=== PATIENT | male | born 1955 | race Caucasian/White ===

== ENCOUNTER 2016-07-08 02:29 | Inpatient (IN) | payer MEDICAID, MEDICARE ==
[~2016-07-08] VITALS: Ht 175.3 cm; Wt 107.4 kg
[~2016-07-08 02:29] MED LIST: BENZ100C5 PO; BUME1TA PO; CALC1CAP31 PO; CARV12.5 PO; FISH1000 PO; INSUH10VL SC; INSULANT SC; ISOS30TA4 PO; METO5TA PO; PANT40TA2 PO; SPIR25TA2 PO; TORS20TA2 PO; VITA50003 PO
[2016-07-08] MEDS ORDERED: TORS20TA2 PO ×2 (02:47)
[2016-07-08] MEDS ORDERED: metOLazone 5 MG TAB PO ONE (03:00)
[2016-07-08] MEDS ORDERED: BUMETANIDE 1 MG/4 ML INJ (S0171) IV ONE (03:00)
[2016-07-08] MEDS ORDERED: INSULANT SC (03:09)
[2016-07-08] MEDS ORDERED: CALC1CAP31 PO (03:11)
[2016-07-08 03:12] LABS: BASO # 0.1 K/mm3 (0.0-0.2); BASO % 1.3 % (0.0-1.0); EOS # 0.2 K/mm3 (0.0-0.50); EOS % 3.4 % (0.0-3.0); LARGE UNSTAINED CELL # 0.1 K/mm3 (0.0-0.4); LARGE UNSTAINED CELL % 2.1 % (0.0-4.0); LYMPH # 1.5 K/mm3 (1.5-4.5); LYMPH % 21.5 % (24.0-44.0); MEAN CORPUSCULAR HEMOGLOBIN 27.9 pg (27.0-33.0); MEAN CORPUSCULAR HGB CONC 32.2 g/dl (32.0-36.5); MEAN CORPUSCULAR VOLUME 86.4 fl (80.0-96.0); MONO # 0.7 K/mm3 (0.0-0.8); MONO % 9.7 % (0.0-5.0); NEUTROPHILS # 4.2 K/mm3 (1.8-7.7); NEUTROPHILS % 61.9 % (36.0-66.0); PLATELET COUNT, AUTOMATED 183 k/mm3 (150-450); RED CELL DISTRIBUTION WIDTH 16.9 % (11.5-14.5); WHITE BLOOD COUNT 6.8 K/mm3 (4.0-10.0)
[2016-07-08 03:18] LABS: INR 1.25
[2016-07-08 03:30] LABS: ALBUMIN 3.1 GM/DL (3.2-5.2); ALBUMIN/GLOBULIN RATIO 0.86 (1.00-1.93); CALCIUM LEVEL 8.1 MG/DL (8.8-10.2); CREATININE FOR GFR 5.25 MG/DL (0.70-1.30); GLOMERULAR FILTRATION RATE 11.9 (>49); PHOSPHORUS LEVEL 4.5 MG/DL (2.5-4.9); POTASSIUM SERUM 4.2 MEQ/L (3.5-5.1); TOTAL PROTEIN 6.7 GM/DL (6.4-8.2)
[2016-07-08 03:35] LABS: ERYTHROCYTE SEDIMENTATION RATE 39 mm/hr (0-20)
--- NOTE | 2016-07-08 03:40 | REPUSA ---
CLINICAL HISTORY: Edema. COMMENTS: Real time sonography with duplex doppler of the extremities bilaterally was performed with attention to the major deep venous structures. Evaluation reveals the common femoral, superficial femoral and popliteal veins bilaterally to be comp letely compressible without intraluminal thrombus. There is normal spontaneous phasic flow and augmen tation in all deep veins. The greater saphenous/common femoral vein junctions are patent bilaterally. IMPRESSION: No evidence of DVT in the lower extremities bilaterally. Thank you for your kind referral of this patient.
[2016-07-08] MEDS ORDERED: BENZONATATE 100 MG CAP PO ONE (03:45)
[2016-07-08 04:30] VITALS: BP 149/91
[2016-07-08] MEDS ORDERED: GLUCAGON FOR INJ 1 MG VIAL (J1610) SC PRN (04:45)
[2016-07-08] MEDS ORDERED: DEXTROSE 50% 50 ML SYRINGE IV PRN (04:45)
[2016-07-08] MEDS ORDERED: GLUCOSE 4 GM CHEW TABLET PO PRN (04:45)
[2016-07-08 05:00] VITALS: BP 142/84
--- NOTE | 2016-07-08 05:15 | HPEPDOC ---
General Date of Admission July 08, 2016 at 03:08 Attending Physician: JADEN BLOUNT MD Chief Complaint The patient is a 60-year-old male admitted with a reason for visit of Chf Exacerbation. Source: Patient, RN notes reviewed, Old records Associated Symptoms: Cough, Shortness of breath, Weakness, Dizziness History of Present Illness Mr. Weber a 60-year-old male who presents to [facility]'s emergency Department from [facility] with lightheadedness, dizziness , and difficulty breathing. Past medical history significant for hypertension, diabetes mellitus, gastroesophageal reflux disease, congestive heart failure, CAD status post CABG , chronic kidney disease stage IV, history of brain aneurysm, and secondary hyperparathyroidism. Patient states that his difficulty breathing started last evening when he was sitting at home. Was attempting to get out of a chair and was too weak to do so. When he eventually got out of the chair and ambulated to the restroom he decided to call the ambulance to be taken to the hospital. Patient states that he is short of breath all the time and it is his shortness of breath that prevents him from accomplishing activities. Patient recalls having an echocardiogram at some point, but is not sure when that was. Patient reports a nonproductive cough for the last week. Admits to blurry vision, runny nose, swelling in his bilateral lower extremities, chest heaviness, orthopnea, numbness and tingling in bilateral feet, polydipsia, and diarrhea. Besides positive review of systems as stated above all other review of systems are negative. Hospitalist service was consulted and patient was admitted for further medical management. Home Medications Scheduled Calcitriol (Calcitriol) 0.25 Mcg Cap, 0.25 MCG PO DAILY, (Reported) Carvedilol (Carvedilol) 12.5 Mg Tab, 12.5 MG PO BID, (Reported) Ergocalciferol (Vitamin D) 50,000 Unit Cap, 50,000 UNIT PO 1XWK, (Reported) THURSDAYS Fish Oil (Fish Oil) 1,000 Mg Cap, 1,000 MG PO BID, (Reported) Insulin Aspart (Novolog) 100 U/Ml Inj, 1 DOSE SC AC, (Reported) PER SLIDING SCALE Insulin Glargine (Lantus) 1 Units/0.01 Ml Susp, 40 UNITS SC BID, (Reported) Pantoprazole Sodium (Pantoprazole Sodium) 40 Mg Tab, 40 MG PO DAILY, (Reported) Spironolactone (Spironolactone) 25 Mg Tab, 25 MG PO DAILY, (Reported) Torsemide (Torsemide) 20 Mg Tab, 60 MG PO BID, (Reported) Scheduled PRN Benzonatate (Benzonatate) 100 Mg Cap, 100 MG PO TID PRN for COUGH, (Reported) Allergies Coded Allergies: Eggs or Egg-derived Products (Unverified Adverse Reaction, Intermediate, DIARRHEA, UPSET STOMACH, 12/02/15) Past Medical History Medical History 1. Hypertension 2. Diabetes mellitus 3. Gastroesophageal reflux disease 4. Congestive heart failure 5. Chronic kidney disease stage IV 6. History of brain aneurysm 7. Secondary hyperparathyroidism 8. CAD status post CABG Surgical History 1. Coronary artery bypass graft 2. AICD 3. Brain aneurysm surgery 4. 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 Denies alcohol, although admitted to previously drinking "a lot" Denies tobacco abuse Denies illicit drug abuse Denies exposure risk to asbestos, talc powder, or coal dust Review of Symptoms Constitutional: Reports: Weakness, Denies: Chills, Fever, Night Sweats Eyes: Denies: Vision change ENT: Reports: Sinus Congestion (runny nose), Denies: Head Aches, Post Nasal Drip, Sore Throat, Epistaxis Skin: Denies: Rash, Lesions, Bruising, Dry Pulmonary: Reports: Dyspnea, Cough (nonproductive), Denies: Pleuritic Chest Pain Cardiovascular: Reports: Chest Pain (chest heaviness), Orthopnea, Edema ( bilateral lower extremities), Lt Headedness, Denies: Palpitations, Paroxysmal Noc. Dyspnea Gastrointestinal: Reports: Diarrhea (occasional), Denies: Nausea, Vomiting, Abdominal Pain, Constipation, Melena, Hematochezia Genitourinary: Denies: Dysuria, Frequency, Incontinence, Hematuria, Retention Hematologic: Denies: Bruising, Enlarged Lymph Nodes Endocrine: Reports: Polydipsia Neurological: Reports: Weakness, Numbness (bilateral feet) Physical Examination General Exam: Positive: Alert, No Acute Distress Eye Exam: Positive: PERRLA, Conjunctiva & lids normal, EOMI, Negative: Sclera icteric, Ptosis ENT Exam: Positive: Atraumatic, Mucous membr. moist/pink, Pharynx Normal, Tongue Midline, Nares Patent, Negative: Pharyngeal Edema Neck Exam: Positive: Supple, Negative: JVD, thyromegaly, Lymphadenopathy Chest Exam: Positive: Clear to auscultation, Normal air movement Heart Exam: Positive: Rate Normal, Regular Rhythm, Normal S1, Normal S2, Negative: Gallops, Murmurs, Rubs Telemetry: Positive: AV Block Abdomen Exam: Positive: Normal bowel sounds, Soft, Negative: Tenderness, Hepatospenomegaly, Mass, Hernia Extremity Exam: Positive: Edema (bilateral lower extremities, 3+ pitting edema up to the level of the knee), Normal pulses, Negative: Clubbing, Cyanosis, Tenderness Skin Exam: Positive: Nl turgor and temperature, Negative: Rash, Lesion Neuro Exam: Positive: Normal Speech, Strength at 5/5 X4 ext, Cranial Nerves 3- 12 NL Other physical findings Bilateral lower extremity duplex ultrasound IMPRESSION: No evidence of DVT in the lower extremities bilaterally. Vital Signs Vital Signs Date Time Temp Pulse Resp B/P (MAP) Pulse Ox O2 Delivery O2 Flow Rate FiO2 07/08/16 03:58 96.6 07/08/16 02:42 90 18 94 Room Air Height (in): 69 Weight (kg): 106.59 BMI (kg): 34.7 Laboratory Data Labs 24H Laboratory Tests 2 07/08/16 02:59: White Blood Count 6.8, Red Blood Count 4.47, Hemoglobin 12.4L, Hematocrit 38.6L , Mean Corpuscular Volume 86.4, Mean Corpuscular Hemoglobin 27.9, Mean Corpuscular Hemoglobin Concent 32.2, Red Cell Distribution Width 16.9H, Platelet Count 183, Neutrophils (%) (Auto) 61.9, Lymphocytes (%) (Auto) 21.5L, Monocytes (%) (Auto) 9.7H, Eosinophils (%) (Auto) 3.4H, Basophils (%) (Auto) 1.3H, Neutrophils # (Auto) 4.2, Lymphocytes # (Auto) 1.5, Monocytes # (Auto) 0.7 , Eosinophils # (Auto) 0.2, Basophils # (Auto) 0.1, Large Unclassified Cells % 2.1, Large Unclassified Cells # 0.1, Erythrocyte Sedimentation Rate 39H, Prothrombin Time 15.8H, Prothromb Time International Ratio 1.25, Anion Gap 10, Glomerular Filtration Rate 11.9L, Blood Urea Nitrogen 75H, Creatinine 5.25H, Sodium Level 134L, Potassium Level 4.2, Chloride Level 101, Carbon Dioxide Level 23, Calcium Level 8.1L, Phosphorus Level 4.5, Aspartate Amino Transf (AST/ SGOT) 15, Alanine Aminotransferase (ALT/SGPT) 19, Total Creatine Kinase 108, Alkaline Phosphatase 136H, Total Bilirubin 1.0, Triglycerides Level 189H, LDL Cholesterol 61.2, Total Protein 6.7, Albumin 3.1L, Magnesium Level 2.0, Creatine Kinase MB 4.5H, Creatine Kinase MB Relative Index 4.16H, Troponin I 0.08, C-Reactive Protein, Quantitative 1.81H, B-Type Natriuretic Peptide 3240H, Albumin/Globulin Ratio 0.86L, Total Cholesterol 126, Non-HDL Cholesterol (LDL + VLDL) 99, Total HDL Cholesterol 27L, Cholesterol/HDL Ratio 4.666, Thyroid Stimulating Hormone (TSH) 2.260 CBC/BMP Laboratory Tests 07/08/16 02:59 Red Blood Count 4.47, Mean Corpuscular Volume 86.4, Mean Corpuscular Hemoglobin 27.9, Mean Corpuscular Hemoglobin Concent 32.2, Red Cell Distribution Width 16.9 H, Neutrophils (%) (Auto) 61.9, Lymphocytes (%) (Auto) 21.5 L, Monocytes (% ) (Auto) 9.7 H, Eosinophils (%) (Auto) 3.4 H, Basophils (%) (Auto) 1.3 H, Neutrophils # (Auto) 4.2, Lymphocytes # (Auto) 1.5, Monocytes # (Auto) 0.7, Eosinophils # (Auto) 0.2, Basophils # (Auto) 0.1, Calcium Level 8.1 L, Phosphorus Level 4.5, Aspartate Amino Transf (AST/SGOT) 15, Alanine Aminotransferase (ALT/SGPT) 19, Total Creatine Kinase 108, Alkaline Phosphatase 136 H, Total Bilirubin 1.0, Triglycerides Level 189 H, LDL Cholesterol 61.2, Total Protein 6.7, Albumin 3.1 L Assessment/Plan Mr. Weber is a 60-year-old male with a past medical history significant for hypertension, diabetes mellitus, gastroesophageal reflux disease , congestive heart failure, coronary artery disease status post coronary artery bypass graft, chronic kidney disease stage IV, history of brain aneurysm, and secondary hyperparathyroidism who presents with difficulty breathing, lightheadedness, and dizziness and found to have an exacerbation of congestive heart failure. Plan / VTE VTE Prophylaxis Ordered?: Yes (TEDs and sequentials) Plan Plan Congestive heart failure exacerbation Bilateral lower extremity duplex ultrasound was negative. Chest x-ray at outside facility shows worsening pulmonary vascular congestion. BNP at outlying facility was 4005. BNP at our facility was 3240. Obtain CRP. Obtain echocardiogram. Received dose of Bumex in the emergency department. Patient to go for dialysis in the a.m. Fluid restriction of 1500 mL. Hold beta blockers at this time. Physical therapy consultation. Chronic kidney disease stage IV Consulted nephrology. Patient to go for dialysis in the a.m.. Obtaining phosphorus level. Continue patient on calcitriol. Chest pain Obtaining cardiac markers and EKG. Hypertension Hold nephrotoxic agents at this time. Monitor vital signs. Nitrates and hydralazine for blood pressure control. Diabetes mellitus Levemir 80 units twice a day, sliding scale insulin, and hypoglycemic protocol. Fingerstick glucoses before meals and at bedtime. Consistent carbohydrate diet. Coronary artery disease status post CABG Continue with aspirin and atorvastatin. 10 year ASCVD risk 27.4%. Secondary parahypothyroidism Prior hospitalization in 2016 make mention of secondary parahypothyroidism. Obtaining PTH and vitamin D level. Disposition Admit: Intensive care unit Anticipated hospitalization: 2 nights Attending: Dr. Schmitz Consultation: Nephrology Diet: Continue Current (consistent carbohydrate) Activity: Encourage Ambulation Therapy: PT Pt and Family Services: Home Care Diagnostics: Check Labs, Repeat Labs in AM, TTE Anticipated Discharge: Home MEGCIRAChan LASTME-I July 08, 2016 05:15
[2016-07-08] MEDS: HumaLOG INSULIN (NovoLOG) PER UNIT SC SCH ×3 (07:50→17:41)
[2016-07-08 08:00] VITALS: BP 146/90
--- NOTE | 2016-07-08 08:07 | REP ---
Clinical: Shortness of breath. Technique: AP and lateral views. Comparison: 12/02/2015. Findings: Evidence for prior sternotomy and CABG. Pacemaker in stable position. Cardiomegaly is suggested along with increased interstitial markings, prominent pulmonary vasculature, and small to moderate layering effusions. Skeletal structures intact. Impression: Moderate CHF/pulmonary edema. Differential diagnosis includes multifocal pneumonia. Signed by Hipolito Yan MD 07/08/2016 07:59 A
[2016-07-08 08:53] VITALS: BP 148/91
[2016-07-08] MEDS: OMEGA-3 1050MG CAPSULE PO SCH ×2 (08:53→20:34)
[2016-07-08] MEDS: **hydrALAZINE** 10 MG TAB PO SCH ×2 (08:54→20:34)
[2016-07-08] MEDS: CALCITRIOL 0.25 MCG CAP (S0169) PO SCH (08:54)
[2016-07-08] MEDS: PANTOPRAZOLE 40MG TAB (PROTONIX) PO SCH (08:54)
[2016-07-08] MEDS: ISOSORBIDE MON. (IMDUR) 30 MG XR TAB PO SCH (08:54)
[2016-07-08] MEDS: ASPIRIN 81 MG ENTERIC TAB PO SCH (08:54)
[2016-07-08] MEDS: BENZONATATE 100 MG CAP PO SCH ×3 (08:55→20:34)
[2016-07-08] MEDS ORDERED: LEVEMIR (INSULIN DETEMIR) 1 UNITS/0.01ML SC SCH ×2 (09:00)
[2016-07-08] MEDS ORDERED: CARVedilol 12.5 MG TAB PO SCH (09:00)
[2016-07-08] MEDS ORDERED: HEPARIN 1,000 UNITS/ML 10ML VIAL (FOR RADIOLOGY& DIALYSIS ONLY) IV ONE (10:15)
--- NOTE | 2016-07-08 13:23 | CR ---
DATE OF CONSULTATION: 07/08/2016 REQUESTING PHYSICIAN: Dr. Bessie Ceja CONSULTING PHYSICIAN: Dr. Neal REASON FOR CONSULTATION: Management of end-stage renal disease and hemodialysis in this patient with fluid overload. CHIEF COMPLAINT: Patient presented to the emergency room last night with cough and progressive shortness of breath along with dizziness after missing hemodialysis for 1 week. HISTORY OF PRESENT ILLNESS: Mr. Luis Miguel Weber is a 60-year-old male with past medical history of end-stage renal disease on hemodialysis. He is well known to nephrology service from outpatient dialysis center. He gets dialyzed at the [facility] in [place]. He has multiple other comorbidities as mentioned below. He missed his hemodialysis for 1 week and after that he started becoming short of breath along with cough, weakness, dizziness. He was unable to walk because of progressive shortness of breath. He came to the hospital via ambulance. Patient was found to be in congestive heart failure (CHF) and fluid overload. He was admitted to intensive care unit (ICU). Nephrology service was called for further help in the management of fluid overload in the setting of end-stage renal disease and missing hemodialysis. PAST MEDICAL HISTORY: Past medical history of end-stage renal disease on hemodialysis, hypertension, diabetes mellitus type 2, history of congestive heart failure, brain aneurysm, coronary artery disease, status post coronary artery bypass grafting. PAST SURGICAL HISTORY: Status post automatic implantable cardioverter defibrillator (AICD) placement, status post brain aneurysm surgery, status post right forearm arteriovenous (AV) fistula and status post coronary artery bypass grafting. ALLERGIES: Patient is allergic to EGG or EGG PRODUCTS. FAMILY HISTORY: No significant family history of end-stage renal disease requiring hemodialysis. SOCIAL HISTORY: Patient denies any alcohol abuse or illicit drug use. Patient lives at home with his cousin. REVIEW OF SYSTEMS: CONSTITUTIONAL: Patient reports weakness and dizziness. Otherwise, he denies any fever, chills or rigors. weakness. EYES: Patient denies any blurry vision or double vision. ENT: He denies any dysphagia, odynophagia or ear discharge. CARDIOVASCULAR: Patient reports swelling, orthopnea and chest heaviness. RESPIRATORY: Patient reports cough, shortness of breath and dyspnea on mild exertion. GASTROINTESTINAL (GI): Patient denies any nausea or vomiting, pain in abdomen or constipation. GENITOURINARY: Patient denies any dysuria or hematuria. He reports decreased urine output because of end-stage renal disease. ENDOCRINE: Patient reports secondary hyperparathyroidism and diabetes. PSYCH: He denies any history of depression or anxiety. CENTRAL NERVOUS SYSTEM (PRESIDING JUDGE): He denies any history of seizures or weakness. All other review of system was found to be negative. PHYSICAL EXAMINATION: GENERAL: Patient is awake, alert, oriented times three, laying in bed, no apparent distress at this time. VITAL SIGNS: Temperature is 97.7 degrees Fahrenheit, blood pressure is 146/90, pulse is 94, respiratory rate of 18, saturating 96% on room air. INTAKE AND OUTPUT: Urine output recorded as 1 liter so far since overnight. Weight on the bed scale is 110 kg. HEAD/NECK EXAM: Extraocular muscles intact. Pupils equally, round and reactive to light. Neck is supple. There is mildly elevated jugular venous distention (JVD). CARDIOVASCULAR: S1, S2, regular rate. RESPIRATORY: Decreased breath sounds at the bases and mild crepitations at the bases on deep inspiration. ABDOMEN: Soft, obese, positive bowel sounds, nontender. No ascites. No organomegaly. EXTREMITIES: No clubbing or cyanosis. He has 2+ pitting edema of the bilateral lower extremities. CENTRAL NERVOUS SYSTEM: No focal neurological deficit. Power is 5/5 in all extremities. PSYCH: Normal mood and affect. SKIN: No rashes or ulcers. AV ACCESS: Patient has a right forearm AV fistula with positive thrill and bruit. LABORATORY REVIEW: CBC showed a WBC of 6.8, hemoglobin 12.4, platelets of 183. BMP showed sodium 134, potassium 4.2, chloride 101, bicarbonate 23, BUN 75, creatinine is 5.2. Ionized calcium was 4.6. BNP 3240. PTH is 515. IMAGING: A chest x-ray done last night showed moderate CHF pattern with pulmonary embolism. CURRENT MEDICATIONS: Current inpatient medications include: - aspirin 81 mg - atorvastatin 40 mg - Tessalon Perles - Bumex 4 mg IV was given last night - calcitriol 0.25 mcg in the morning - Beta-blockers are on hold. - hydrazine 10 mg by mouth twice a day - Levemir 40 units subcutaneous twice a day - isosorbide 30 mg by mouth daily - metolazone 5 mg by mouth, one dose was given - Protonix 40 mg by mouth daily ASSESSMENT: 60-year-old male with past medical history of end-stage renal disease on hemodialysis admitted this time because of fluid overload and congestive heart failure secondary to missing hemodialysis for 1 week. PLAN: 1. Fluid overload and congestive heart failure. Patient was given Bumex and metolazone last night. He made 1 liter of urine. Currently, he feels a little bit better. He is on room air at this time. Patient is being emergently hemodialyzed right now. We shall try to remove about 4 liters of fluid. That will help improve his hypervolemic status. 2. End-stage renal disease on hemodialysis. Patient missed 1 full week of hemodialysis. I am going to dialyze him now. The patient was advised to be compliant with hemodialysis as per outpatient schedule. 3. Hypertension. Blood pressure is acceptable at this time. Continue home dose of antihypertensives. I am going to restart Coreg 12.5 mg by mouth twice a day. 4. Insulin-dependent diabetes mellitus. Continue home dose of insulin Levemir. 5. Secondary hyperparathyroidism. Continue current dose of calcitriol 0.25 mcg by mouth daily. 6. Hyponatremia. Hyponatremia is secondary to hypervolemia. It will improve with hemodialysis and ultrafiltration. 7. Anemia in end-stage renal disease. Hemoglobin is more 12. No need of Aranesp administration at this time. Thank you for involving us in the care of this patient. We shall be happy to follow the patient along with you tomorrow morning. Patient can be downgraded to medical after hemodialysis today.
[2016-07-08 13:56] VITALS: BP 142/91
[2016-07-08] MEDS: LEVEMIR (INSULIN DETEMIR) 1 UNITS/0.01ML SC SCH ×2 (14:26→20:35)
[2016-07-08] MEDS ORDERED: HumaLOG INSULIN (NovoLOG) PER UNIT SC SCH (21:00)
[2016-07-08] MEDS ORDERED: ATORVASTATIN 20 MG TAB PO SCH (21:00)
[2016-07-09 05:40] LABS: BASO # 0.1 K/mm3 (0.0-0.2); BASO % 0.9 % (0.0-1.0); EOS # 0.2 K/mm3 (0.0-0.50); EOS % 3.4 % (0.0-3.0); LARGE UNSTAINED CELL # 0.2 K/mm3 (0.0-0.4); LARGE UNSTAINED CELL % 2.8 % (0.0-4.0); LYMPH # 1.1 K/mm3 (1.5-4.5); LYMPH % 19.1 % (24.0-44.0); MEAN CORPUSCULAR HEMOGLOBIN 28.8 pg (27.0-33.0); MEAN CORPUSCULAR HGB CONC 32.8 g/dl (32.0-36.5); MEAN CORPUSCULAR VOLUME 87.9 fl (80.0-96.0); MONO # 0.6 K/mm3 (0.0-0.8); MONO % 9.3 % (0.0-5.0); NEUTROPHILS # 3.8 K/mm3 (1.8-7.7); NEUTROPHILS % 64.4 % (36.0-66.0); PLATELET COUNT, AUTOMATED 163 k/mm3 (150-450); WHITE BLOOD COUNT 5.9 K/mm3 (4.0-10.0)
[2016-07-09 05:51] LABS: CALCIUM LEVEL 8.3 MG/DL (8.8-10.2); CREATININE FOR GFR 3.95 MG/DL (0.70-1.30); GLOMERULAR FILTRATION RATE 16.5 (>49); POTASSIUM SERUM 3.8 MEQ/L (3.5-5.1)
[2016-07-09] MEDS: HumaLOG INSULIN (NovoLOG) PER UNIT SC SCH ×2 (08:38→12:24)
[2016-07-09] MEDS: ASPIRIN 81 MG ENTERIC TAB PO SCH (08:39)
[2016-07-09] MEDS: OMEGA-3 1050MG CAPSULE PO SCH (08:39)
[2016-07-09] MEDS: PANTOPRAZOLE 40MG TAB (PROTONIX) PO SCH (08:39)
[2016-07-09] MEDS: BENZONATATE 100 MG CAP PO SCH (08:39)
[2016-07-09] MEDS: CALCITRIOL 0.25 MCG CAP (S0169) PO SCH (08:39)
[2016-07-09] MEDS: LEVEMIR (INSULIN DETEMIR) 1 UNITS/0.01ML SC SCH (08:39)
[2016-07-09] MEDS: ISOSORBIDE MON. (IMDUR) 30 MG XR TAB PO SCH (08:40)
[2016-07-09 09:00] VITALS: BP 130/82
[2016-07-09] MEDS: **hydrALAZINE** 10 MG TAB PO SCH (09:00)
--- NOTE | 2016-07-09 15:18 | DS.PDOC ---
Discharge Summary General Date of Admission July 08, 2016 at 03:08 Date of Discharge 07/09/16 Discharge Summary PROCEDURES PERFORMED DURING STAY: None. ADMITTING DIAGNOSES: 1. . Decompensated congestive heart failure secondary to nonadherence to dialysis therapy 2. . End-stage renal disease on hemodialysis Mondays, Wednesdays, Fridays DISCHARGE DIAGNOSES: 1. . Decompensated congestive heart failure secondary to nonadherence to dialysis therapy 2. . End-stage renal disease on hemodialysis Mondays, Wednesdays, Fridays COMPLICATIONS/CHIEF COMPLAINT: Chf Exacerbation. HISTORY OF PRESENT ILLNESS: . 60-year-old male with past medical history of hypertension, diabetes mellitus, gastroesophageal reflux disease, congestive heart failure, CAD status post CABG , ESRD on HD, history of brain aneurysm, and secondary hyperparathyroidism sent to the ER with a chief complaint of worsening shortness of breath over the last few days. Of note, the patient does have dialysis scheduled Mondays, Wednesdays , Fridays. However, the patient states that he has not been to dialysis over the last 9 days. The patient was admitted to the hospitalist service for further evaluation and management. During hospitalization, nephrology was consulted and the patient did have dialysis done on 07/08. After dialysis, the patient states that his shortness of breath has significantly improved. He denies any acute complaints at this time. I have advised the patient extensively that he needs to follow his regularly scheduled dialysis sessions. The patient replied that he did not go to dialysis for the last week+ because of cramping associated with dialysis. I once again educated the patient on the importance of dialysis and how missing dialysis sessions can lead to significant medical complications including from electrolyte abnormalities. At this time, the patient states that he is feeling much better and he is eager to return home. Physical therapy has cleared the patient to return home. I advised patient follow-up with his primary care physician within one week and more importantly to follow-up with his regularly scheduled dialysis sessions as prescribed. DISCHARGE MEDICATIONS: Please see below. ALLERGIES: Please see below. PHYSICAL EXAMINATION ON DISCHARGE: VITAL SIGNS: Please see below. GENERAL: Awake, alert, oriented HEENT: Normocephalic, atraumatic NECK: No JVD CARDIOVASCULAR EXAMINATION: Normal rate, normal rhythm RESPIRATORY EXAMINATION: Clear to auscultation bilaterally ABDOMINAL EXAMINATION: Soft, nontender, nondistended EXTREMITIES: No erythema, no tenderness LABORATORY DATA: Please see below. IMAGING: Clinical: Shortness of breath. Technique: AP and lateral views. Comparison: 12/02/2015. Findings: Evidence for prior sternotomy and CABG. Pacemaker in stable position. Cardiomegaly is suggested along with increased interstitial markings, prominent pulmonary vasculature, and small to moderate layering effusions. Skeletal structures intact. Impression: Moderate CHF/pulmonary edema. Differential diagnosis includes multifocal pneumonia. PROGNOSIS: Medically stable at this time, poor long-term prognosis ACTIVITY: As tolerated. DIET: . Renal diet, 1800 mL fluid restriction DISCHARGE PLAN: DISPOSITION: 01 Home, Self-Care. DISCHARGE INSTRUCTIONS: 1. . Follow-up with primary care physician within one week 2. . Follow-up with regularly scheduled dialysis sessions on Mondays, Wednesdays , and Fridays DISCHARGE CONDITION: Medically stable at this time, poor long-term prognosis TIME SPENT ON DISCHARGE: Greater than 30 minutes. Vital Signs/I&Os Vital Signs Date Time Temp Pulse Resp B/P (MAP) Pulse Ox O2 Delivery O2 Flow Rate FiO2 07/09/16 09:00 130/82 07/09/16 08:00 Room Air 07/08/16 13:56 97.4 89 18 99 I&O- Last 24 Hours up to 6 AM 07/09/16 06:00 Intake Total 860 ml Output Total 3700 ml Balance -2840 ml Laboratory Data Labs 24H Laboratory Tests 2 07/08/16 17:19: Bedside Glucose (Misc Panel) 228H 07/08/16 18:00: Total Creatine Kinase 89, Creatine Kinase MB 4.3H, Creatine Kinase MB Relative Index 4.83H, Troponin I 0.07 07/08/16 20:21: Bedside Glucose (Misc Panel) 301H 07/08/16 23:50: Total Creatine Kinase 68, Creatine Kinase MB 3.5, Creatine Kinase MB Relative Index 5.14H, Troponin I 0.07 07/09/16 05:03: White Blood Count 5.9, Red Blood Count 4.02L, Hemoglobin 11.6L, Hematocrit 35.4L , Mean Corpuscular Volume 87.9, Mean Corpuscular Hemoglobin 28.8, Mean Corpuscular Hemoglobin Concent 32.8, Red Cell Distribution Width 17.0H, Platelet Count 163, Neutrophils (%) (Auto) 64.4, Lymphocytes (%) (Auto) 19.1L, Monocytes (%) (Auto) 9.3H, Eosinophils (%) (Auto) 3.4H, Basophils (%) (Auto) 0.9 , Neutrophils # (Auto) 3.8, Lymphocytes # (Auto) 1.1L, Monocytes # (Auto) 0.6, Eosinophils # (Auto) 0.2, Basophils # (Auto) 0.1, Large Unclassified Cells % 2.8 , Large Unclassified Cells # 0.2, Anion Gap 7L, Glomerular Filtration Rate 16.5L , Blood Urea Nitrogen 40H, Creatinine 3.95H, Sodium Level 137, Potassium Level 3.8, Chloride Level 100, Carbon Dioxide Level 30, Calcium Level 8.3L 07/09/16 11:21: Bedside Glucose (Misc Panel) 174H CBC/BMP Laboratory Tests 07/09/16 05:03 Red Blood Count 4.02 L, Mean Corpuscular Volume 87.9, Mean Corpuscular Hemoglobin 28.8, Mean Corpuscular Hemoglobin Concent 32.8, Red Cell Distribution Width 17.0 H, Neutrophils (%) (Auto) 64.4, Lymphocytes (%) (Auto) 19.1 L, Monocytes (%) (Auto) 9.3 H, Eosinophils (%) (Auto) 3.4 H, Basophils (%) (Auto) 0.9, Neutrophils # (Auto) 3.8, Lymphocytes # (Auto) 1.1 L, Monocytes # ( Auto) 0.6, Eosinophils # (Auto) 0.2, Basophils # (Auto) 0.1, Calcium Level 8.3 L FSBS Laboratory Tests Test 07/08/16 17:19 07/08/16 20:21 07/09/16 11:21 Range/Units Bedside Glucose (Misc Panel) 228 301 174 80-115 MG/DL Discharge Medications Scheduled Calcitriol (Calcitriol) 0.25 Mcg Cap, 0.25 MCG PO DAILY, (Reported) Carvedilol (Carvedilol) 12.5 Mg Tab, 12.5 MG PO BID, (Reported) Ergocalciferol (Vitamin D) 50,000 Unit Cap, 50,000 UNIT PO 1XWK, (Reported) TH Fish Oil (Fish Oil) 1,000 Mg Cap, 1,000 MG PO BID, (Reported) Insulin Aspart (Novolog) 100 U/Ml Inj, 1 DOSE SC AC, (Reported) PER SLIDING SCALE Insulin Glargine (Lantus) 1 Units/0.01 Ml Susp, 40 UNITS SC BID, (Reported) Pantoprazole Sodium (Pantoprazole Sodium) 40 Mg Tab, 40 MG PO DAILY, (Reported) Spironolactone (Spironolactone) 25 Mg Tab, 25 MG PO DAILY, (Reported) Torsemide (Torsemide) 20 Mg Tab, 60 MG PO BID, (Reported) Scheduled PRN Benzonatate (Benzonatate) 100 Mg Cap, 100 MG PO TID PRN for COUGH, (Reported) Allergies Coded Allergies: Eggs or Egg-derived Products (Unverified Adverse Reaction, Intermediate, DIARRHEA, UPSET STOMACH, 12/02/15) RODDY ZHANG MD July 09, 2016 15:18
--- NOTE | 2016-07-10 10:34 | IPN ---
DATE: 07/09/2016 SUBJECTIVE: The patient was seen and examined at the bedside today in the morning. The patient was dialyzed yesterday. He tolerated the hemodialysis procedure well. The patient is hemodynamically stable at this time. He reports that his shortness of breath is much better today. REVIEW OF SYSTEMS: The patient denies any fevers, chills, rigors, headache, nausea, vomiting, chest pain, shortness of breath, pain in the abdomen, constipation or diarrhea. Rest of review of systems negative. OBJECTIVE: Vital signs: Temperature is 97.4 degrees Fahrenheit, blood pressure is 130/82, pulse is 89, respiratory rate of 18, saturating 99% on room air. Intake and output: Urine output recorded is 1 liter yesterday. There is no urine output recorded today. Ultrafiltration with hemodialysis was 3 liters. PHYSICAL EXAMINATION: GENERAL: Patient is awake, alert, oriented times three, lying in bed. No apparent distress. HEAD AND NECK: Extraocular muscles intact. Pupils equally round and reactive to light. Mucous membranes are moist. Neck is supple. There is no jugular venous distention (JVD). CARDIOVASCULAR: S1, S2. Regular rate. No murmur, rub or gallop. RESPIRATORY: Chest is clear to auscultation bilaterally. Bilateral equal air entry. No rales or rhonchi. ABDOMEN: Soft, obese, positive bowel sounds, nontender. No ascites. No organomegaly. EXTREMITIES: No clubbing or cyanosis. Pulses are 2+. He has trace edema of the bilateral lower extremities. CENTRAL NERVOUS SYSTEM: No focal neurological deficit. Power is 5/5 in all extremities. LABORATORY REVIEW: CBC showed a WBC 5.9, hemoglobin 11.6, platelets are 163. BMP showed sodium 137, potassium 3.8, chloride 100, bicarbonate 30, BUN 40, creatinine is 3.9. CURRENT MEDICATIONS: Patient's current inpatient medications were all reviewed by me. There is no change in the medications today as compared with yesterday. ASSESSMENT: 60-year-old male with past medical history of end stage renal disease on hemodialysis, admitted this time because of shortness of breath and fluid overload after missing dialysis for one week. PLAN: 1. Fluid overload and congestive heart failure (CHF). The patient was given diuretics in the emergency room. He was dialyzed yesterday as well with 3 liters of ultrafiltration done. He is 4 liters negative since yesterday. He is hemodynamically stable. Shortness of breath is significantly improved. No need of extra hemodialysis today. 2. End stage renal disease on hemodialysis. The patient missed one full week of hemodialysis. He got dialyzed yesterday. His laboratories are optimized for his end stage renal disease. No urgent need of hemodialysis. Next hemodialysis session will be as an outpatient according to his schedule. 3. Hypertension. Blood pressure is acceptable at this time. Continue current dose of Coreg 12.5 mg by mouth twice a day. 4. Hyponatremia. Sodium is improved to 137 today after hemodialysis and ultrafiltration. DISCHARGE PLANNING: It is okay to discharge the patient from nephrology standpoint. He will be dialyzed as an outpatient at the dialysis center in [place]. Plan of care was discussed with the hospitalist team, Dr. Elijah Schmitz.
== END 2016-07-09 13:14 | disposition home or self-care (01) | DRG 682 ==
LOC: EDBD 02:29 → M ED 03:06 → M ED INP 03:08 → M ICU 04:08 → M MSPAV 10:09
PROVIDERS: ADMIT General Practice; ATTEND Internal Medicine
DX: I13.11 Hypertensive heart and chronic kidney disease without heart failure, with stage 5 chronic kidney disease, or end stage renal disease (principal); N18.6 End stage renal disease; N25.81 Secondary hyperparathyroidism of renal origin; E87.1 Hypo-osmolality and hyponatremia; I50.9 Heart failure, unspecified; E11.9 Type 2 diabetes mellitus without complications; Z91.19 Patient's noncompliance with other medical treatment and regimen; K21.9 Gastro-esophageal reflux disease without esophagitis; Z79.899 Other long term (current) drug therapy; Z79.4 Long term (current) use of insulin; Z91.012 Allergy to eggs; Z79.82 Long term (current) use of aspirin; D63.1 Anemia in chronic kidney disease

== ENCOUNTER 2016-11-09 21:23 | Inpatient (IN) | payer MEDICARE ==
[~2016-11-09] VITALS: Ht 175.3 cm; Wt 113.5 kg
[2016-11-09] MEDS: HEPARIN SOD (PORCINE) 5000 UNITS/ML VIAL SC SCH ×2 (21:00→23:34)
[~2016-11-09 21:23] MED LIST changes: +VITA1CAP40 PO; -VITA50003 PO
[2016-11-09] MEDS ORDERED: BISACODYL 10 MG SUPP PR PRN (22:00)
[2016-11-09] MEDS ORDERED: ONDANSETRON 4MG/2ML VIAL (J2405) IV PRN (22:00)
[2016-11-09 22:30] VITALS: BP 139/91
[2016-11-09 23:04] LABS: BASO % 0.7 % (0.0-1.0); EOS # 0.3 K/mm3 (0.0-0.50); EOS % 4.3 % (0.0-3.0); LARGE UNSTAINED CELL # 0.2 K/mm3 (0.0-0.4); LARGE UNSTAINED CELL % 2.4 % (0.0-4.0); LYMPH # 0.7 K/mm3 (1.5-4.5); LYMPH % 8.8 % (24.0-44.0); MEAN CORPUSCULAR HEMOGLOBIN 28.6 pg (27.0-33.0); MEAN CORPUSCULAR HGB CONC 33.2 g/dl (32.0-36.5); MEAN CORPUSCULAR VOLUME 86.1 fl (80.0-96.0); MONO # 0.6 K/mm3 (0.0-0.8); NEUTROPHILS # 5.5 K/mm3 (1.8-7.7); NEUTROPHILS % 75.7 % (36.0-66.0); PLATELET COUNT, AUTOMATED 195 k/mm3 (150-450); RED CELL DISTRIBUTION WIDTH 17.1 % (11.5-14.5); WHITE BLOOD COUNT 7.3 K/mm3 (4.0-10.0)
[2016-11-09] MEDS ORDERED: GLUCOSE 4 GM CHEW TABLET PO PRN (23:15)
[2016-11-09] MEDS ORDERED: GLUCAGON FOR INJ 1 MG VIAL (J1610) SC PRN (23:15)
[2016-11-09] MEDS ORDERED: FUROSEMIDE 100 MG/10 ML VIAL (J1940) IV ONE (23:15)
[2016-11-09] MEDS ORDERED: DEXTROSE 50% 50 ML SYRINGE IV PRN (23:15)
[2016-11-09 23:16] LABS: ALBUMIN 3.3 GM/DL (3.2-5.2); ALBUMIN/GLOBULIN RATIO 0.83 (1.00-1.93); BILIRUBIN,TOTAL 1.3 MG/DL (0.2-1.0); CALCIUM LEVEL 8.6 MG/DL (8.8-10.2); CREATININE FOR GFR 6.35 MG/DL (0.70-1.30); GLOMERULAR FILTRATION RATE 9.5 (>49); THYROXINE (T4) 12.2 UG/DL (4.5-12.0); TOTAL PROTEIN 7.3 GM/DL (6.4-8.2)
--- NOTE | 2016-11-09 23:20 | REPUSA ---
Clinical history: Shortness of breath. Comparison: None. Findings: The mediastinum is within normal limits. The heart is enlarged. There is diffuse pulmonary vascular congestion. There is a right lower lobe infiltrate. A pacemaker is in place. No pleural effu uma or pneumothorax is seen. The osseous structures and soft tissues are unremarkable. Impression: Cardiomegaly. Moderate congestive heart failure. Right lower lobe infiltrate.
[2016-11-09] MEDS ORDERED: CARV25TA PO (23:23)
[2016-11-09] MEDS ORDERED: PATIENT COMMENT (23:25)
[2016-11-09] MEDS ORDERED: SLF 3 ML SYR IV PRN (23:45)
[2016-11-10] VITALS: BP 132/90
[2016-11-10 00:07] LABS: ABG HCO3 19.7 MEQ/L (22.0-26.0); ABG PARTIAL PRESSURE CO2 31.9 mmHg (35.0-45.0); ABG PARTIAL PRESSURE O2 84.3 mmHg (75.0-100.0); ABG STANDARD HCO3 21.2 MEQ/L (22.0-26.0); ABG TOTAL CO2 20.7 MEQ/L (23.0-31.0); ABG pH (ARTERIAL) 7.409 UNITS (7.350-7.450)
[2016-11-10 04:00] VITALS: BP 131/84
--- NOTE | 2016-11-10 06:48 | HPE ---
DATE OF ADMISSION: 11/09/2016 PRIMARY CARE PROVIDER: Dr. Priyanka Schaefer. RESIDENTIAL TEAM LEADER: Dr. Stark. CHIEF COMPLAINT: Weakness, dizziness, dis-balance for the past one month. Inability to ambulate out of the house for the past one week. Missed three sessions of dialysis because unable to walk to the dialysis van and transport and climb into the transportation van. Increasing shortness of breath over the past two days with increased swelling of the body. PAST MEDICAL HISTORY: 1. End-stage renal disease (ESRD) on hemodialysis. 2. Congestive heart failure, has an automatic implantable cardioverter defibrillator (AICD) in place. 3. Diabetes. 4. Hypertension. 6. Gastroesophageal reflux disease (GERD). 7. Morbid obesity. 8. History of brain aneurysm, treated. 9. Dyslipidemia. 10. History of noncompliance with dialysis in the past. 11. Coronary artery disease status post coronary artery bypass graft (CABG). 12. Hyperparathyroidism. HISTORY OF PRESENT ILLNESS: This is a 61-year-old male who was transferred from [facility] Emergency Room for congestive heart failure, fluid overload, and missing dialysis for three sessions. The patient had gone to the emergency room for increasing shortness of breath and increasing generalized body swelling, and was found to be in fluid overload. The patient missed three sessions of dialysis. The patient states that he missed dialysis because he could not walk. He was dizzy, had dis-balance and very weak, so he could not get out of bed and climb into the dialysis van, so could not go for dialysis. He tells me this has been going on for more than a month, for which he had gone to the [facility] Emergency Room before about a month ago, and at that point, he was transferred from there to [facility]. He was at [facility] for six days, and then he was discharged home. However, after coming home about two weeks, the situation remained unchanged. He was unable to get out of bed, unable to walk, having trouble with balance, unable to get into the dialysis van, so he continued to miss his dialysis sessions, and due to that, he has become swollen and with shortness of breath, so he went to the emergency room today. From there, he was transferred to our hospital. The patient denies any fever or chills. The patient does complain of some intermittent cough without much phlegm production. Denies any chest pain, had some shortness of breath which worsens when he tries to walk or do any activity. Denies any abdominal pain and nausea, vomiting or diarrhea. Denies any leg pain or cramps. Does complain of extreme generalized weakness and tiredness. The patient is being admitted to the hospitalist service for fluid overload congestive heart failure exacerbation due to missing several sessions of hemodialysis. PAST SURGICAL HISTORY: 1. Arteriovenous (AV) fistula creation in 2016. 2. Automatic implantable cardioverter defibrillator (AICD) implantation. 3. Coronary artery bypass graft (CABG). 4. Brain aneurysm surgery. ALLERGIES: The patient is allergic to EGG and EGG PRODUCTS. FAMILY HISTORY: Nothing significant. SOCIAL HISTORY: The patient lives with a cousin who is also dependent on dialysis. The patient denies any alcohol abuse or any illicit drug use. The patient denies any use of tobacco. HOME MEDICATIONS: - benzonatate 100 mg by mouth three times a day as needed for cough - Coreg 25 mg by mouth twice a day - ergocalciferol 50,000 units once a week - Lantus insulin 40 units twice a day - spironolactone 25 mg by mouth daily - NovoLog insulin before meals as per sliding scale Med historian notes that according to external medication history, the patient has not filled any of his medications since July of 2016. REVIEW OF SYSTEMS: All 10-point review of systems is negative except those mentioned in history of present illness (HPI). PHYSICAL EXAMINATION: VITAL SIGNS: As per electronic medical records. HEENT: Normocephalic, atraumatic. Moist mucous membranes. Anicteric eyes. CHEST: Clear to auscultation. However, there are decreased breath sounds at both bases. CARDIOVASCULAR: S1, S2 regular. No rub, murmur or gallop. ABDOMEN: Obese. Has bilateral edema. Bowel sounds present. No organomegaly appreciated. EXTREMITIES: 4+ bipedal edema with some cold and mottling noted. LABORATORY DATA: WBC 7.3, hemoglobin 12.7, platelets 195. Sodium 136, potassium four, chloride 103, bicarbonate 24, BUN 77, creatinine 6.3, glucose 210, lactic acid 1.3, calcium 8.6, Total bilirubin 1.3, AST and ALT normal. Alkaline phosphatase 131. Troponin 0.09. Albumin 3.3. TSH 3.33. IMAGING: Chest x-ray shows cardiomegaly, moderate congestive heart failure, right lower lobe infiltrate which looks like fluid overload. EKG shows sinus rhythm, positive AV block. Low-voltage complexes. ASSESSMENT AND PLAN: This is a 61-year-old male admitted to the hospital for congestive heart failure exacerbation, fluid overload due to missing several sessions of hemodialysis, and inability to ambulate. PLAN: 1. Congestive heart failure exacerbation: The patient says he does make significant amount of urine, so we will start the patient on intravenous (IV) Lasix; unsure whether he has been taking any diuretics at home as he has not filled any prescriptions since July. The patient will be scheduled for dialysis tomorrow. We will give oxygen if required to maintain saturation over 90%. We will get an echocardiogram. The patient does have an AICD in place. 2. End-stage renal disease: The patient has been hemodialysis for about a year. However, known to miss dialysis sessions over the past 3-4 months, with recurrent episodes of fluid overload and congestive heart failure exacerbation. Nephrology has been consulted and will place the patient on dialysis. The patient will probably need several [id number] sessions to fully mobilize his fluids. His electrolytes are acceptable. We will get arterial blood gas (ABG). 3. Coronary artery disease with history of coronary artery bypass graft: At present, the patient does not have any symptoms. According to patient, he apparently had a recent cardiac catheterization done at [facility] within the past one month, which he was told was okay. We will try to obtain records from [facility]. 4. Diabetes: We will continue the patient on Levemir and lispro per sliding scale. Fingersticks before meals and at bedtime. 5. Hypertension: At present, the patient's blood pressure is mildly elevated. We will continue with home medications. The patient is on Coreg. 6. Morbid obesity complicating care. 7. Dis-balance, weakness, and difficulty in ambulation: We will consult physical therapy (PT) for evaluation. However, much of his problem with ambulation could be related to excessive fluid and swelling of his legs. The patient, however, may also have diabetic neuropathy causing trouble with balance. 8. Secondary hyperparathyroidism: The patient is supposed to be on calcitriol 0.25 mcg daily. We will continue. 9. Deep venous thrombosis (DVT) prophylaxis has been ordered.
[2016-11-10] MEDS: HumaLOG INSULIN (NovoLOG) PER UNIT SC SCH ×4 (07:53→20:40)
[2016-11-10] MEDS: SLF 3 ML SYR IV SCH ×3 (07:54→22:00)
[2016-11-10 08:00] VITALS: BP 131/92
[2016-11-10] MEDS: HEPARIN SOD (PORCINE) 5000 UNITS/ML VIAL SC SCH ×2 (08:30→20:28)
[2016-11-10] MEDS: SENOKOT S TAB PO SCH ×2 (08:30→20:28)
[2016-11-10] MEDS ORDERED: LEVEMIR (INSULIN DETEMIR) 1 UNITS/0.01ML SC SCH (09:00)
--- NOTE | 2016-11-10 09:43 | IPNPDOC ---
Subjective Date Seen The patient was seen on 11/10/16. Subjective Chief Complaint/HPI The patient is a 61-year-old male admitted with a reason for visit of Fluid Overload. General: Reports: Fatigue, Malaise, Denies: Chills, Night Sweats Constitutional: Reports: Malaise, Denies: Chills, Fever, Night Sweats Eyes: Denies: Pain, Vision change Skin: Denies: Rash, Lesions Pulmonary: Denies: Dyspnea, Cough Cardiovascular: Denies: Chest Pain, Palpitations Gastrointestinal: Denies: Nausea, Vomiting, Abdominal Pain, Diarrhea, Constipation Genitourinary: Denies: Dysuria Neurological: Reports: Weakness, Denies: Numbness Psych: Reports: Mood Normal, Anxiety Objective Physical Examination General Exam: Positive: Alert, Cooperative, No Acute Distress Eye Exam: Positive: Conjunctiva & lids normal, EOMI, Negative: Sclera icteric, Ptosis ENT Exam: Positive: Atraumatic, Mucous membr. moist/pink, Tongue Midline, Nares Patent Neck Exam: Positive: Supple Chest Exam: Positive: Normal air movement, Diminished, Negative: Rales, Rhonchi, Wheezing Heart Exam: Positive: Rate Normal, Normal S1, Normal S2, Negative: Gallops, Murmurs, Rubs Abdomen Exam: Positive: Normal bowel sounds, Soft, Negative: Tenderness, Hepatospenomegaly, Mass Extremity Exam: Negative: Clubbing, Cyanosis, Edema Assessment /Plan Problems (1) CHF exacerbation Status: Acute Response to Treatment: Stable Problem Text: c/w IV lasix therapy, pt is able to produce urine according to him Pt will receive dialysis today Continue supplemental O2, pt denied SOB on exam today BNP 3240 on admission ECHO pending pt has AICD (2) ESRD (end stage renal disease) Status: Chronic Response to Treatment: Stable Problem Text: pt is not compliant with dialysis treatments which leads to fluid overload and CHF Nephrology on consult-appreciate their recommendations Pt will have dialysis today ABG showed pH 7.4, O2 84.3 and bicarb 24 and co2 20.7 (3) Weak Status: Acute Response to Treatment: Stable Problem Text: Pt will continue to work with physical therapy once he is more stable after his dialysis, will investigate further about his weakness possibly secondary to deconditioning and body habitus and generally swelling of his legs and abdomen from fluid overload after missed hemodialysis appts, pt is obese (4) CAD (coronary artery disease) Status: Chronic Response to Treatment: Stable Problem Text: s/p double bypass ten years ago denies CP, SOB or dizzyness or n/v still waiting records from [facility] where pt said he received cardiac cath one month ago with recent hospitalization a few months ago, according to pt. (5) DM2 (diabetes mellitus, type 2) Status: Chronic Response to Treatment: Stable Problem Text: sliding scale and fingersticks before meals and bedtime (6) HTN (hypertension) Status: Chronic Response to Treatment: Stable Problem Text: 131/92 stable continue pts home Coreg (7) Secondary hyperparathyroidism Status: Chronic Response to Treatment: Stable Problem Text: c/w home calcitrol .25 mcg daily (8) DVT prophylaxis Status: Acute Response to Treatment: Stable Problem Text: pt on heparin therapy Plan/VTE VTE Prophylaxis Ordered?: Yes VS, I&O, 24H, Fishbone Vital Signs/I&O Vital Signs Date Time Temp Pulse Resp B/P (MAP) Pulse Ox O2 Delivery O2 Flow Rate FiO2 11/10/16 08:00 98.3 89 24 131/92 (105) 99 Room Air Laboratory Data 24H LABS Laboratory Tests 2 11/09/16 22:39: White Blood Count 7.3, Red Blood Count 4.44, Hemoglobin 12.7L, Hematocrit 38.2L , Mean Corpuscular Volume 86.1, Mean Corpuscular Hemoglobin 28.6, Mean Corpuscular Hemoglobin Concent 33.2, Red Cell Distribution Width 17.1H, Platelet Count 195, Neutrophils (%) (Auto) 75.7H, Lymphocytes (%) (Auto) 8.8L, Monocytes (%) (Auto) 8.0H, Eosinophils (%) (Auto) 4.3H, Basophils (%) (Auto) 0.7 , Neutrophils # (Auto) 5.5, Lymphocytes # (Auto) 0.7L, Monocytes # (Auto) 0.6, Eosinophils # (Auto) 0.3, Basophils # (Auto) 0.0, Large Unclassified Cells % 2.4 , Large Unclassified Cells # 0.2, Anion Gap 9, Glomerular Filtration Rate 9.5L, Lactic Acid Level 1.3, Blood Urea Nitrogen 77H, Creatinine 6.35H, Sodium Level 136, Potassium Level 4.0, Chloride Level 103, Carbon Dioxide Level 24, Calcium Level 8.6L, Aspartate Amino Transf (AST/SGOT) 16, Alanine Aminotransferase (ALT/ SGPT) 17, Total Creatine Kinase 158, Alkaline Phosphatase 131H, Total Bilirubin 1.3H, Total Protein 7.3, Albumin 3.3, Creatine Kinase MB 7.5H, Creatine Kinase MB Relative Index 4.74H, Troponin I 0.09, Albumin/Globulin Ratio 0.83L, Thyroid Stimulating Hormone (TSH) 3.330, Free Thyroxine Index 5.1H, Thyroxine (T4) 12.2H , Triiodothyronine (T3) Uptake 42H 11/09/16 23:53: Blood Gas Bicarbonate Standard 21.2L, Arterial Blood pH 7.409, Arterial Blood Partial Pressure CO2 31.9L, Arterial Blood Partial Pressure O2 84.3, Arterial Blood Total CO2 20.7L, Arterial Blood HCO3 19.7L, Arterial Blood Base Excess - 4.0L, Arterial Blood Oxygen Saturation 96.1 11/10/16 05:32: Total Creatine Kinase 149, Creatine Kinase MB 7.0H, Creatine Kinase MB Relative Index 4.69H, Troponin I 0.09, Estimated Mean Plasma Glucose 223H, Hemoglobin A1c 9.4H 11/10/16 06:57: Bedside Glucose (Misc Panel) 196H CBC/BMP Laboratory Tests 11/09/16 22:39 Red Blood Count 4.44, Mean Corpuscular Volume 86.1, Mean Corpuscular Hemoglobin 28.6, Mean Corpuscular Hemoglobin Concent 33.2, Red Cell Distribution Width 17.1 H, Neutrophils (%) (Auto) 75.7 H, Lymphocytes (%) (Auto) 8.8 L, Monocytes ( %) (Auto) 8.0 H, Eosinophils (%) (Auto) 4.3 H, Basophils (%) (Auto) 0.7, Neutrophils # (Auto) 5.5, Lymphocytes # (Auto) 0.7 L, Monocytes # (Auto) 0.6, Eosinophils # (Auto) 0.3, Basophils # (Auto) 0.0, Calcium Level 8.6 L, Aspartate Amino Transf (AST/SGOT) 16, Alanine Aminotransferase (ALT/SGPT) 17, Total Creatine Kinase 158, Alkaline Phosphatase 131 H, Total Bilirubin 1.3 H, Total Protein 7.3, Albumin 3.3 GME ATTESTATION GME ATTESTATION My preceptor for this patient encounter was physically present in the building during the encounter and was fully available. As needed, all aspects of the patient interview, examination, medical decision making process, and medical care plan development were reviewed and approved by the preceptor. Preceptor is aware and concurs with the plan as stated in the body of this note and will attest to such by his/her cosignature. JOSE MACARIO DO Nov 10, 2016 09:42
[2016-11-10] MEDS ORDERED: HEPARIN 1,000 UNITS/ML 10ML VIAL (FOR RADIOLOGY& DIALYSIS ONLY) IV ONE (10:00)
[2016-11-10] MEDS ORDERED: LIDOCAINE 1% SDV 5 ML VIAL SQ ONE (10:00)
[2016-11-10 13:00] VITALS: BP 139/89
[2016-11-10] MEDS: FUROSEMIDE 100 MG/10 ML VIAL (J1940) IV SCH ×2 (13:53→18:11)
[2016-11-10] MEDS: LEVEMIR (INSULIN DETEMIR) 1 UNITS/0.01ML SC SCH ×2 (14:03→20:28)
[2016-11-10 16:20] VITALS: BP 135/75
--- NOTE | 2016-11-10 19:40 | ECGEPIP ---
Stationary ECG Study [facility] Test Date: 2016-11-09 Pat Name: YADIEL WAHL Department: Room: [place] [address] Gender: M Academic Department Chair: EM : [id number] Requested By: ELLIE LOTT Order Number: [id number] Reading MD: Jorge Rizo Measurements Intervals [place] Rate: 94 P: -64 MA: 222 QRS: -35 QRSD: 120 T: 134 QT: 383 QTc: 481 Interpretive Statements Normal sinus rhythm with first degree AV block and one PVC Low QRS complex voltage in the limb leads Left anterior fascicular block Anterior OK, age indeterminate No significant change when compared to prior tracing of 12/01/2015 Electronically Signed On 11-10-2016 19:39:47 EDT by Jorge Rizo
[2016-11-10 20:00] VITALS: BP 109/72
[2016-11-10] MEDS: NYSTATIN 100,000 UNITS/GM TOPICAL PWD 15 GM TOP SCH (20:42)
--- NOTE | 2016-11-10 22:16 | CR ---
DATE OF CONSULTATION: 11/10/2016 REQUESTING PHYSICIAN: Elijah Schmitz MD CONSULTING PHYSICIAN: Deon Neal MD REASON FOR CONSULTATION: Management of fluid overload in this patient with history of end-stage renal disease and missing multiple sessions of hemodialysis. HISTORY OF PRESENT ILLNESS: Mr. Luis Miguel Weber is a 61-year-old male with a past medical history of end-stage renal disease on hemodialysis every Monday, Monday, Monday, well known to nephrology service from previous admissions and from outpatient hemodialysis center. Patient is noncompliant with his hemodialysis regimen and he usually misses multiple sessions of hemodialysis. He presented to [facility] yesterday because of inability to walk, shortness of breath, lower extremity edema, and missing multiple sessions of hemodialysis for more than a week. [facility] got in touch with me yesterday. I had the patient transferred to [facility] for further management of fluid overload and hemodialysis. Patient reported that he was feeling very dizzy and off balance and he was unable to come himself for dialysis sessions. Patient had almost a similar episode of fluid overload and shortness of breath after missing hemodialysis about a month ago and at that time he was transferred to [facility] for about 6 days and he was discharged home, but patient reports that he was so weak that he could not come for dialysis sessions. I saw and examined the patient today morning while he was getting dialysis. I arranged his urgent hemodialysis session today morning. Patient was tolerating the hemodialysis procedure well. He was hemodynamically stable and he does have generalized anasarca at this time. PAST MEDICAL HISTORY: Patient has a past medical history of: 1. End-stage renal disease on hemodialysis every Monday, Monday, Monday. 2. History of congestive heart failure with reduced ejection fraction status post automatic implantable cardioverter defibrillator (AICD) placement. 3. History of diabetes mellitus type 2. 4. Hypertension. 5. Gastroesophageal reflux disease. 6. Morbid obesity. 7. Hyperlipidemia. 8. History of coronary artery disease. 9. Hyperparathyroidism. 10. Noncompliance with hemodialysis session. PAST SURGICAL HISTORY: Patient has a past surgical history of: 1. Coronary artery bypass grafting status post right forearm arteriovenous (AV) fistula placement status post AICD placement. 2. History of brain aneurysm surgery in the past. ALLERGIES: Patient is allergic to eggs. No known drug allergies. FAMILY HISTORY: No significant family history of end-stage renal disease requiring hemodialysis. SOCIAL HISTORY: Patient lives with his cousin who is also hemodialysis dependent. He denies any history of alcohol abuse or illicit drug abuse. REVIEW OF SYSTEMS: CONSTITUTIONAL: Patient reports feeling weak and tired and unable to walk. EYES: He denies any double vision or blurry vision. EARS, NOSE, THROAT (ENT): He denies any dysphagia, odynophagia, or ear discharge. CARDIOVASCULAR: Patient reports lower extremity edema, shortness of breath. He denies any chest pains or palpitations, but he does report history of congestive heart failure. RESPIRATORY: Patient reports shortness of breath, but he denies any wheezing or cough. GASTROINTESTINAL (GI): He denies any pain in abdomen, constipation, or diarrhea. He does report decreased appetite. GENITOURINARY: He denies any dysuria or hematuria. MUSCULOSKELETAL: The patient reports muscle weakness and inability to walk. PSYCHIATRIC: He denies any depression or anxiety. ENDOCRINE: Patient reports history of diabetes and secondary hyperparathyroidism. SKIN: He denies any rashes or ulcers. HEMATOLOGICAL/ONCOLOGICAL: He denies any easy bruising or bleeding tendency. All other review of systems is negative. PHYSICAL EXAMINATION: GENERAL: Patient is awake, alert, oriented times three, laying in bed, getting hemodialysis done. VITAL SIGNS: Temperature is 98.3 degrees Fahrenheit, blood pressure is 131/92, pulse is 89, respiratory rate of 24, saturating at 99% on room air. Intake and output: Patient was given Lasix overnight and his urine output was around 500 mL. Weight in the bed scale is 122 kg. HEAD and NECK EXAM: Extraocular muscles intact. Pupils equally round and reactive to light. Mucous membranes are moist. Neck is supple. There is no jugular venous distention (JVD). CARDIOVASCULAR: S1, S2, regular rate. No murmur, rub, or gallop. Patient has almost 3+ edema of the bilateral lower extremities up to thighs. RESPIRATORY: Chest is clear to auscultation bilaterally. Bilateral equal air entry. No rales or rhonchi. ABDOMEN: Soft, obese. Positive bowel sounds. Positive abdominal wall edema. No organomegaly was appreciated. GENITOURINARY: No Gan catheter at this time. No hernia. No scrotal edema. MUSCULOSKELETAL: Patient has 3+ edema of the bilateral lower extremities. No clubbing or cyanosis. CENTRAL NERVOUS SYSTEM: No focal neurological deficit. Power is 5/5 in bilateral upper extremities. SKIN: No rashes or ulcers. LYMPH NODES: No significant cervical, axillary, or inguinal lymphadenopathy. PSYCHIATRIC: Normal mood and affect. LABORATORY REVIEW: CBC showed WBC 7.3, hemoglobin 12.7, platelets 195. BMP this morning showed sodium 136, potassium 4, chloride 103, bicarbonate 24, BUN 77, creatinine is 6.3, A1c is 9.4, troponin 0.09, TSH is 3.3, free T4 is 5.1. IMAGING: Chest x-ray done yesterday showed cardiomegaly, moderate congestive heart failure, right lower lobe infiltrate. CURRENT INPATIENT MEDICATIONS: Patient's inpatient medications were all reviewed by me, that includes Senokot, Lasix 100 mg IV twice a day, heparin subcutaneous, insulin Levemir 15 units subcutaneous twice a day, insulin sliding scale, nystatin powder, Zofran as needed. ASSESSMENT: 61-year-old male with past medical history of diabetes mellitus type 2, hypertension, history of congestive heart failure with reduced ejection fraction, end-stage renal disease on hemodialysis, admitted at this time because of congestive heart failure exacerbation, anasarca secondary to missed hemodialysis, and generalized weakness. PLAN: 1. Anasarca and decompensated congestive heart failure, it is secondary to noncompliance with hemodialysis. Patient has not received his hemodialysis for more than a week. He has already been started on IV Lasix. He made around 500 mL of urine overnight. Patient is being dialyzed today and I shall try to do an ultrafiltration of around 5 liters as tolerated by his blood pressure. 2. End-stage renal disease. Patient is hemodialysis dependent. He is noncompliant with his hemodialysis sessions. He has been admitted multiple times after missing hemodialysis. The patient is being emergently dialyzed at this time. I shall do another session of hemodialysis tomorrow for clearance and fluid removal. 3. Diabetes mellitus type 2. Continue current dose of Levemir and insulin sliding scale. 4. Hypertension. Blood pressure is acceptable at this time. Hemodialysis and ultrafiltration will also help decrease blood pressure. Continue the diuretics at this time. Patient was on Coreg 25 mg by mouth twice a day at home, but at this time he is not requiring any Coreg. If needed, patient will be restarted on a low dose of carvedilol. 5. Weakness and inability to walk. It is most likely secondary to anasarca, noncompliance with hemodialysis. Patient is pending physical therapy (PT) evaluation. Hemodialysis ultrafiltration would help improve the fluid status. 6. Anemia in end-stage renal disease. Hemoglobin is more than 12. No need of Aranesp administration at this time. 7. Secondary hyperparathyroidism. It could be managed as outpatient according to parathyroid hormone (PTH) protocol. Thank you for involving us in the case of this patient. We shall be happy to follow the patient along with you tomorrow morning. Plan of care was already discussed with the overnight fabrication operator hospitalist, Dr. Gloria Ruggiero.
[2016-11-11] VITALS: BP 112/71
[2016-11-11 04:00] VITALS: BP 116/73
[2016-11-11 04:25] LABS: BASO # 0.1 K/mm3 (0.0-0.2); BASO % 0.8 % (0.0-1.0); EOS # 0.3 K/mm3 (0.0-0.50); EOS % 4.3 % (0.0-3.0); LARGE UNSTAINED CELL # 0.3 K/mm3 (0.0-0.4); LARGE UNSTAINED CELL % 3.6 % (0.0-4.0); LYMPH # 0.8 K/mm3 (1.5-4.5); LYMPH % 11.4 % (24.0-44.0); MEAN CORPUSCULAR HEMOGLOBIN 29.2 pg (27.0-33.0); MEAN CORPUSCULAR VOLUME 85.8 fl (80.0-96.0); MONO # 0.8 K/mm3 (0.0-0.8); MONO % 11.6 % (0.0-5.0); NEUTROPHILS # 4.9 K/mm3 (1.8-7.7); NEUTROPHILS % 68.4 % (36.0-66.0); PLATELET COUNT, AUTOMATED 196 k/mm3 (150-450); RED CELL DISTRIBUTION WIDTH 17.3 % (11.5-14.5); WHITE BLOOD COUNT 7.2 K/mm3 (4.0-10.0)
[2016-11-11 04:56] LABS: ALBUMIN 3.1 GM/DL (3.2-5.2); CALCIUM LEVEL 8.8 MG/DL (8.8-10.2); CREATININE FOR GFR 4.7 MG/DL (0.70-1.30); GLOMERULAR FILTRATION RATE 13.5 (>49); PHOSPHORUS LEVEL 4.3 MG/DL (2.5-4.9); POTASSIUM SERUM 3.9 MEQ/L (3.5-5.1)
[2016-11-11] MEDS: SLF 3 ML SYR IV SCH ×3 (06:00→21:40)
[2016-11-11] MEDS: HumaLOG INSULIN (NovoLOG) PER UNIT SC SCH ×4 (07:00→21:00)
[2016-11-11 08:00] VITALS: BP 103/69
[2016-11-11] MEDS: HEPARIN SOD (PORCINE) 5000 UNITS/ML VIAL SC SCH ×2 (09:00→21:00)
[2016-11-11] MEDS: SENOKOT S TAB PO SCH ×2 (09:00→21:00)
[2016-11-11] MEDS: CARVedilol 3.125 MG TAB PO SCH ×2 (09:00→21:00)
[2016-11-11] MEDS: LEVEMIR (INSULIN DETEMIR) 1 UNITS/0.01ML SC SCH ×2 (09:20→21:00)
[2016-11-11] MEDS: FUROSEMIDE 100 MG/10 ML VIAL (J1940) IV SCH ×2 (09:20→18:32)
[2016-11-11] MEDS: NYSTATIN 100,000 UNITS/GM TOPICAL PWD 15 GM TOP SCH ×2 (09:22→21:00)
--- NOTE | 2016-11-11 10:07 | IPNPDOC ---
Subjective Date Seen The patient was seen on 11/11/16. Subjective Chief Complaint/HPI The patient is a 61-year-old male admitted with a reason for visit of Fluid Overload. General: Denies: Chills, Night Sweats Constitutional: Denies: Chills ENT: Denies: Head Aches Pulmonary: Denies: Dyspnea, Pleuritic Chest Pain Cardiovascular: Denies: Chest Pain, Palpitations Gastrointestinal: Denies: Nausea, Vomiting Neurological: Denies: Weakness Objective Physical Examination General Exam: Positive: Alert, No Acute Distress, Negative: Cooperative (pt was laying in bed and stated that he didn't want to be bothered) Eye Exam: Positive: Conjunctiva & lids normal, EOMI, Negative: Sclera icteric, Ptosis ENT Exam: Positive: Atraumatic, Mucous membr. moist/pink, Tongue Midline, Nares Patent Neck Exam: Positive: Supple Chest Exam: Positive: Normal air movement, Diminished, Negative: Rales, Rhonchi, Wheezing Heart Exam: Positive: Rate Normal, Normal S1, Normal S2, Negative: Gallops, Murmurs, Rubs Abdomen Exam: Positive: Normal bowel sounds, Soft, Negative: Tenderness, Hepatospenomegaly, Mass Extremity Exam: Negative: Clubbing, Cyanosis, Edema Assessment /Plan Problems (1) CHF exacerbation Status: Acute Response to Treatment: Stable Problem Text: c/w IV lasix therapy, pt is able to produce urine according to him he did have a run of v tach overnight and apparently was asx., he denied CP or palpations on exam today, K was within normal limits and Mg level was ordered for this morning, pending results-will replete as necessary Pt s/p dialysis one day ago, states his abdominal discomfort is better since removing the excess fluid Continue supplemental O2, pt denied SOB on exam today BNP 3240 on admission ECHO pending pt has AICD (2) ESRD (end stage renal disease) Status: Chronic Response to Treatment: Stable Problem Text: pt is not compliant with dialysis treatments which leads to fluid overload and CHF [facility], he was admitted for missing dialysis appts a few months ago and received a stress test which was positive and cardiac cath. which demonstrated patency of all three major vessels, echo at that time showed EF of 25-30%. Of note the pt also tested positive for cocaine use. He ended up leaving AMA and did not receive/refused the recommended second dialysis treatment that [facility] had encouraged him to obtain before being d/c. Nephrology on consult-appreciate their recommendations Pt will have dialysis today ABG showed pH 7.4, O2 84.3 and bicarb 24 and co2 20.7 (3) Weak Status: Acute Response to Treatment: Stable Problem Text: Pt will continue to work with physical therapy he states his weakness is better today after receiving dialysis one day ago possibly secondary to deconditioning and body habitus and generally swelling of his legs and abdomen from fluid overload after missed hemodialysis appts, pt is obese (4) CAD (coronary artery disease) Status: Chronic Response to Treatment: Stable Problem Text: s/p double bypass ten years ago denies CP, SOB or dizzyness or n/v still waiting records from [facility] where pt said he received cardiac cath one month ago with recent hospitalization a few months ago, according to pt. (5) DM2 (diabetes mellitus, type 2) Status: Chronic Response to Treatment: Stable Problem Text: sliding scale and fingersticks before meals and bedtime (6) HTN (hypertension) Status: Chronic Response to Treatment: Stable Problem Text: stable continue pts home Coreg with holding parameters (7) Secondary hyperparathyroidism Status: Chronic Response to Treatment: Stable Problem Text: c/w home calcitrol .25 mcg daily (8) DVT prophylaxis Status: Acute Response to Treatment: Stable Problem Text: pt on heparin therapy Plan/VTE VTE Prophylaxis Ordered?: Yes VS, I&O, 24H, Fishbone Vital Signs/I&O Vital Signs Date Time Temp Pulse Resp B/P (MAP) Pulse Ox O2 Delivery O2 Flow Rate FiO2 11/11/16 09:00 69 103/69 11/11/16 08:00 98.6 18 18 Room Air I&O- Last 24 Hours up to 6 AM 11/12/16 06:00 Intake Total 0 ml Balance 0 ml Laboratory Data 24H LABS Laboratory Tests 2 11/10/16 13:38: Bedside Glucose (Misc Panel) 140H 11/10/16 13:50: Total Creatine Kinase 116, Creatine Kinase MB 6.0H, Creatine Kinase MB Relative Index 5.17H, Troponin I 0.09 11/10/16 17:05: Bedside Glucose (Misc Panel) 162H 11/10/16 20:31: Bedside Glucose (Misc Panel) 205H 11/11/16 04:19: White Blood Count 7.2, Red Blood Count 4.24L, Hemoglobin 12.3L, Hematocrit 36.3L , Mean Corpuscular Volume 85.8, Mean Corpuscular Hemoglobin 29.2, Mean Corpuscular Hemoglobin Concent 34.0, Red Cell Distribution Width 17.3H, Platelet Count 196, Neutrophils (%) (Auto) 68.4H, Lymphocytes (%) (Auto) 11.4L, Monocytes (%) (Auto) 11.6H, Eosinophils (%) (Auto) 4.3H, Basophils (%) (Auto) 0.8, Neutrophils # (Auto) 4.9, Lymphocytes # (Auto) 0.8L, Monocytes # (Auto) 0.8 , Eosinophils # (Auto) 0.3, Basophils # (Auto) 0.1, Large Unclassified Cells % 3.6, Large Unclassified Cells # 0.3, Blood Urea Nitrogen 46H, Creatinine 4.70H, Sodium Level 141, Potassium Level 3.9, Chloride Level 105, Carbon Dioxide Level 27, Anion Gap 9, Glomerular Filtration Rate 13.5L, Calcium Level 8.8, Phosphorus Level 4.3, Magnesium Level 2.0, Albumin 3.1L CBC/BMP Laboratory Tests 11/11/16 04:19 Red Blood Count 4.24 L, Mean Corpuscular Volume 85.8, Mean Corpuscular Hemoglobin 29.2, Mean Corpuscular Hemoglobin Concent 34.0, Red Cell Distribution Width 17.3 H, Neutrophils (%) (Auto) 68.4 H, Lymphocytes (%) (Auto ) 11.4 L, Monocytes (%) (Auto) 11.6 H, Eosinophils (%) (Auto) 4.3 H, Basophils ( %) (Auto) 0.8, Neutrophils # (Auto) 4.9, Lymphocytes # (Auto) 0.8 L, Monocytes # (Auto) 0.8, Eosinophils # (Auto) 0.3, Basophils # (Auto) 0.1, Anion Gap 9 GME ATTESTATION GME ATTESTATION My preceptor for this patient encounter was physically present in the building during the encounter and was fully available. As needed, all aspects of the patient interview, examination, medical decision making process, and medical care plan development were reviewed and approved by the preceptor. Preceptor is aware and concurs with the plan as stated in the body of this note and will attest to such by his/her cosignature. JOSE MACARIO DO Nov 11, 2016 10:07
[2016-11-11] MEDS ORDERED: LOPERAMIDE 2 MG CAP PO ONE ×2 (11:45→19:00)
[2016-11-11] MEDS ORDERED: LIDOCAINE 1% SDV 5 ML VIAL SQ ONE (13:15)
[2016-11-11] MEDS ORDERED: HEPARIN 1,000 UNITS/ML 10ML VIAL (FOR RADIOLOGY& DIALYSIS ONLY) IV ONE (13:15)
--- NOTE | 2016-11-11 18:37 | IPN ---
DATE: 11/11/2016 SUBJECTIVE: The patient was seen and examined at the bedside today morning during work rounds and during hemodialysis. The patient was dialyzed yesterday and got ultrafiltration done. The patient reports that he feels significantly better. His shortness of breath is improving, and he reports some improvement of the leg edema as well. REVIEW OF SYSTEMS: The patient denies any fevers, chills, rigors, headaches, nausea, vomiting, chest pain. He reports improvement in his shortness of breath. He denies any pain abdomen, constipation. The patient does report lower extremity edema, but he does report some improvement in edema as compared with yesterday. Rest of review of systems is negative. OBJECTIVE: VITAL SIGNS: Temperature is 98.6 degrees Fahrenheit, blood pressure is 103/69, pulse is 69, respiratory rate of 18, saturating 96% on room air. INTAKE AND OUTPUT: Urine output recorded 500 mL yesterday. Ultrafiltration with hemodialysis was 4.5 liters. PHYSICAL EXAMINATION: GENERAL: The patient is awake, alert, and oriented times three, no apparent distress. HEAD/NECK: Extraocular muscles intact. Pupils equal, round, and reactive to light. Mucous membranes are moist. Neck is supple. There is no jugular venous distention (JVD). CARDIOVASCULAR: S1, S2. Regular rate. No murmur, rub, or gallop. He has 2+ pitting edema of the bilateral lower extremities. RESPIRATORY: Chest is clear to auscultation bilaterally. Bilateral equal air entry. No rales or rhonchi. ABDOMEN: Soft, obese. Positive bowel sounds. No organomegaly. Positive abdominal wall edema. MUSCULOSKELETAL: The patient has 2+ pitting edema of the bilateral lower extremities. Otherwise, no clubbing or cyanosis. CENTRAL NERVOUS SYSTEM ([employer]): No focal neurological deficit. Power is 5/5 in all extremities. LABORATORY DATA: CBC showed WBC 7.2, hemoglobin 12.3, platelets of 196. BMP showed sodium 141, potassium 3.9, chloride 105, bicarbonate 27, BUN 46, creatinine 4.7. Calcium 8.8, phosphorus 4.3. Albumin is 3.1. CURRENT INPATIENT MEDICATIONS: The patient's medications were all reviewed by me. He was started on low dose of carvedilol 3.125 mg by mouth twice a day with holding parameters. There is no other change in the medications today as compared with yesterday. ASSESSMENT: A 61-year-old male with past medical history of diabetes mellitus type 2, hypertension, history of congestive heart failure with reduced ejection fraction, end-stage renal disease on hemodialysis, admitted this time because of anasarca and decompensated congestive heart failure after missing hemodialysis. PLAN: 1. Decompensated congestive heart failure: It is secondary to noncompliance with hemodialysis. The patient missed hemodialysis sessions for more than a week. He got dialysis yesterday and 4.5 liters of fluid were removed. The patient will be dialyzed again today, and the ultrafiltration (UF) goal is again about 4 kg today. 2. End-stage renal disease on hemodialysis: The patient is noncompliant with hemodialysis. He was emergently dialyzed yesterday because of fluid overload. He is being dialyzed again today to put him back on his schedule and to remove more fluid. 3. Hypertension: Blood pressure is acceptable at this time. I am not sure whether this patient is taking his home dose of carvedilol. His blood pressure this morning was in acceptable range. I am starting him on low dose of carvedilol 3.125 mg by mouth twice a day. 4. Weakness and inability to walk: Some of that is secondary to noncompliance with hemodialysis and anasarca. The patient is pending physical therapy (PT) evaluation.
[2016-11-11 22:00] VITALS: BP 102/55
[2016-11-12 06:00] VITALS: BP 144/83
[2016-11-12] MEDS: SLF 3 ML SYR IV SCH ×3 (06:07→20:33)
[2016-11-12 06:25] LABS: BASO % 0.8 % (0.0-1.0); EOS # 0.4 K/mm3 (0.0-0.50); EOS % 6.5 % (0.0-3.0); LARGE UNSTAINED CELL # 0.2 K/mm3 (0.0-0.4); LARGE UNSTAINED CELL % 2.7 % (0.0-4.0); LYMPH # 0.8 K/mm3 (1.5-4.5); LYMPH % 11.7 % (24.0-44.0); MEAN CORPUSCULAR HEMOGLOBIN 28.7 pg (27.0-33.0); MEAN CORPUSCULAR HGB CONC 32.9 g/dl (32.0-36.5); MEAN CORPUSCULAR VOLUME 87.1 fl (80.0-96.0); MONO # 0.7 K/mm3 (0.0-0.8); MONO % 9.7 % (0.0-5.0); NEUTROPHILS # 4.8 K/mm3 (1.8-7.7); NEUTROPHILS % 68.7 % (36.0-66.0); PLATELET COUNT, AUTOMATED 157 k/mm3 (150-450); RED CELL DISTRIBUTION WIDTH 17.3 % (11.5-14.5)
[2016-11-12 07:01] LABS: CALCIUM LEVEL 8.5 MG/DL (8.8-10.2); CREATININE FOR GFR 3.85 MG/DL (0.70-1.30); PHOSPHORUS LEVEL 3.5 MG/DL (2.5-4.9); POTASSIUM SERUM 4.1 MEQ/L (3.5-5.1)
[2016-11-12] MEDS: LEVEMIR (INSULIN DETEMIR) 1 UNITS/0.01ML SC SCH ×2 (08:15→20:31)
[2016-11-12] MEDS: HumaLOG INSULIN (NovoLOG) PER UNIT SC SCH ×4 (08:16→21:30)
[2016-11-12] MEDS: FUROSEMIDE 100 MG/10 ML VIAL (J1940) IV SCH ×2 (08:16→17:01)
[2016-11-12] MEDS: CARVedilol 3.125 MG TAB PO SCH ×2 (08:16→20:31)
[2016-11-12] MEDS: SENOKOT S TAB PO SCH ×2 (08:17→20:34)
[2016-11-12] MEDS: NYSTATIN 100,000 UNITS/GM TOPICAL PWD 15 GM TOP SCH ×2 (08:17→20:32)
[2016-11-12] MEDS: HEPARIN SOD (PORCINE) 5000 UNITS/ML VIAL SC SCH ×2 (08:17→20:31)
--- NOTE | 2016-11-12 11:02 | IPNPDOC ---
Subjective Date Seen The patient was seen on 11/12/16. Subjective Chief Complaint/HPI The patient is a 61-year-old male admitted with a reason for visit of Fluid Overload. General: Reports: Fatigue, Denies: Chills, Night Sweats, Malaise Constitutional: Denies: Chills, Fever, Malaise, Weakness Eyes: Denies: Pain, Vision change Skin: Denies: Rash, Lesions, Jaundice Pulmonary: Denies: Dyspnea, Cough, Pleuritic Chest Pain Cardiovascular: Denies: Chest Pain, Palpitations Gastrointestinal: Denies: Nausea, Vomiting, Abdominal Pain Neurological: Denies: Weakness Psych: Reports: Mood Normal Objective Physical Examination General Exam: Positive: Alert, No Acute Distress, Negative: Cooperative (currently undergoing dialysis treatment) Eye Exam: Positive: Conjunctiva & lids normal, EOMI, Negative: Sclera icteric, Ptosis ENT Exam: Positive: Atraumatic, Mucous membr. moist/pink, Tongue Midline, Nares Patent Neck Exam: Positive: Supple Chest Exam: Positive: Normal air movement, Diminished, Negative: Rales, Rhonchi, Wheezing Heart Exam: Positive: Rate Normal, Normal S1, Normal S2, Negative: Gallops, Murmurs, Rubs Abdomen Exam: Positive: Normal bowel sounds, Soft, Negative: Tenderness, Hepatospenomegaly, Mass Extremity Exam: Negative: Clubbing, Cyanosis, Edema Psych Exam: Positive: Mental status NL, Oriented x 3 Assessment /Plan Problems (1) CHF exacerbation Status: Acute Response to Treatment: Stable Problem Text: pt is not SOB, laying comfortably receiving dialysis treatment c/w IV lasix therapy, pt is able to produce urine according to him he did have a run of v tach two nights ago and apparently was asx., he again denied CP or palpations on exam today, K was within normal limits, Mg normal. Will replete as necessary. Continue supplemental O2, pt denied SOB on exam today BNP 3240 on admission ECHO pending pt has AICD (2) ESRD (end stage renal disease) Status: Chronic Response to Treatment: Stable Problem Text: pt is not compliant with dialysis treatments which leads to fluid overload and CHF According [facility], he was admitted for missing dialysis appts a few months ago and received a stress test which was positive and cardiac cath. which demonstrated patency of all three major vessels, echo at that time showed EF of 25-30%. Of note the pt also tested positive for cocaine use. He ended up leaving AMA and did not receive/refused the recommended second dialysis treatment that [facility] had encouraged him to obtain before being d/c. Nephrology on consult-appreciate their recommendations Pt will have second dialysis today ABG showed pH 7.4, O2 84.3 and bicarb 24 and co2 20.7 (3) Weak Status: Acute Response to Treatment: Stable Problem Text: Pt refusing to work with PT, will speak to him again about this and stress importance he states his weakness is better today after receiving dialysis one day ago, currently being dialyzed possibly secondary to deconditioning and body habitus and generally swelling of his legs and abdomen from fluid overload after missed hemodialysis appts, pt is obese (4) CAD (coronary artery disease) Status: Chronic Response to Treatment: Stable Problem Text: s/p double bypass ten years ago denies CP, SOB or dizzyness or n/v still waiting records from [facility] where pt said he received cardiac cath one month ago with recent hospitalization a few months ago, according to pt. (5) DM2 (diabetes mellitus, type 2) Status: Chronic Response to Treatment: Stable Problem Text: sliding scale and fingersticks before meals and bedtime (6) HTN (hypertension) Status: Chronic Response to Treatment: Stable Problem Text: 144/83 stable continue pts home Coreg with holding parameters (7) Secondary hyperparathyroidism Status: Chronic Response to Treatment: Stable Problem Text: c/w home calcitrol .25 mcg daily (8) DVT prophylaxis Status: Acute Response to Treatment: Stable Problem Text: pt on heparin therapy Plan/VTE VTE Prophylaxis Ordered?: Yes VS, I&O, 24H, [facility] Vital Signs/I&O Vital Signs Date Time Temp Pulse Resp B/P (MAP) Pulse Ox O2 Delivery O2 Flow Rate FiO2 11/12/16 08:16 91 144/83 11/12/16 06:00 98.4 20 98 Room Air Laboratory Data 24H LABS Laboratory Tests 2 11/11/16 11:56: Bedside Glucose (Misc Panel) 164H 11/11/16 18:23: Bedside Glucose (Misc Panel) 193H 11/12/16 06:14: White Blood Count 7.0, Red Blood Count 4.27L, Hemoglobin 12.3L, Hematocrit 37.2L , Mean Corpuscular Volume 87.1, Mean Corpuscular Hemoglobin 28.7, Mean Corpuscular Hemoglobin Concent 32.9, Red Cell Distribution Width 17.3H, Platelet Count 157, Neutrophils (%) (Auto) 68.7H, Lymphocytes (%) (Auto) 11.7L, Monocytes (%) (Auto) 9.7H, Eosinophils (%) (Auto) 6.5H, Basophils (%) (Auto) 0.8 , Neutrophils # (Auto) 4.8, Lymphocytes # (Auto) 0.8L, Monocytes # (Auto) 0.7, Eosinophils # (Auto) 0.4, Basophils # (Auto) 0.0, Large Unclassified Cells % 2.7 , Large Unclassified Cells # 0.2, Blood Urea Nitrogen 28H, Creatinine 3.85H, Sodium Level 142, Potassium Level 4.1, Chloride Level 106, Carbon Dioxide Level 26, Anion Gap 10, Glomerular Filtration Rate 17.0L, Calcium Level 8.5L, Phosphorus Level 3.5, Albumin 3.0L CBC/BMP Laboratory Tests 11/12/16 06:14 Red Blood Count 4.27 L, Mean Corpuscular Volume 87.1, Mean Corpuscular Hemoglobin 28.7, Mean Corpuscular Hemoglobin Concent 32.9, Red Cell Distribution Width 17.3 H, Neutrophils (%) (Auto) 68.7 H, Lymphocytes (%) (Auto ) 11.7 L, Monocytes (%) (Auto) 9.7 H, Eosinophils (%) (Auto) 6.5 H, Basophils (% ) (Auto) 0.8, Neutrophils # (Auto) 4.8, Lymphocytes # (Auto) 0.8 L, Monocytes # (Auto) 0.7, Eosinophils # (Auto) 0.4, Basophils # (Auto) 0.0, Anion Gap 10 GME ATTESTATION GME ATTESTATION My preceptor for this patient encounter was physically present in the building during the encounter and was fully available. As needed, all aspects of the patient interview, examination, medical decision making process, and medical care plan development were reviewed and approved by the preceptor. Preceptor is aware and concurs with the plan as stated in the body of this note and will attest to such by his/her cosignature. JOSE MACARIO DO Nov 12, 2016 11:02
[2016-11-12] MEDS ORDERED: LIDOCAINE 1% SDV 5 ML VIAL SQ ONE (11:45)
[2016-11-12] MEDS ORDERED: HEPARIN 1,000 UNITS/ML 10ML VIAL (FOR RADIOLOGY& DIALYSIS ONLY) IV ONE (11:45)
[2016-11-12 14:00] VITALS: BP 124/67
--- NOTE | 2016-11-12 14:53 | IPN ---
DATE: 11/12/2016 Mr. Weber is seen this morning during hemodialysis. He remains somewhat depressed and is lying with eyes closed. He did not want to talk to me; however, I did ask him to discuss the situation as he has at least two episodes where he stopped coming to dialysis for weeks and then ended up in the hospital. He has vague excuses. At this point, the patient denies any nausea, vomiting, dyspnea or chest pain. PHYSICAL EXAMINATION: Temperature 98.4 degrees Fahrenheit, heart rate 90 per minute and respiratory rate 20 per minute. Blood pressure 144/83 mmHg and oxygen saturation 98% on room air. Head: Is atraumatic. Neck is supple and without jugular venous distention (JVD) or thyroid enlargement. Heart: Sounds are regular and without a pericardial friction rub. Lungs: Clear to auscultation. Abdomen: Soft and nontender and without a palpable organomegaly. Extremities: Have no cyanosis or clubbing. Lower extremity edema is at least 2+. Right arm arteriovenous (AV) fistula is functioning and currently being used for dialysis. PROBLEM #1: End-stage renal disease. The patient is being dialyzed today again. He has missed dialysis for over a week. He was quite volume overloaded and uremic at the time of admission. He is tolerating his dialysis treatment very well. PROBLEM #2: Hypervolemia with peripheral edema. The patient had 4 liters of fluid removed every day with last two dialysis treatments. We are also trying to remove 3-4 liters again today. So far he is tolerating it well. PROBLEM #3: Anemia. At this point, there is no significant problem and his anemia is stable. PROBLEM #4: Noncompliance with dialysis treatment. I strongly feel that the patient has a significant element of depression. I would strongly recommend that a psychiatric evaluation be completed before discharge as the patient has stopped coming to dialysis twice and both times ended up in the hospital.
[2016-11-12 22:00] VITALS: BP 133/80
[2016-11-13] MEDS: SLF 3 ML SYR IV SCH ×3 (06:02→21:27)
[2016-11-13 06:53] LABS: BASO % 0.8 % (0.0-1.0); EOS # 0.5 K/mm3 (0.0-0.50); EOS % 7.4 % (0.0-3.0); LARGE UNSTAINED CELL # 0.1 K/mm3 (0.0-0.4); LARGE UNSTAINED CELL % 1.8 % (0.0-4.0); LYMPH # 0.8 K/mm3 (1.5-4.5); LYMPH % 13.1 % (24.0-44.0); MEAN CORPUSCULAR HEMOGLOBIN 28.9 pg (27.0-33.0); MEAN CORPUSCULAR HGB CONC 33.1 g/dl (32.0-36.5); MEAN CORPUSCULAR VOLUME 87.2 fl (80.0-96.0); MONO # 0.7 K/mm3 (0.0-0.8); MONO % 11.1 % (0.0-5.0); NEUTROPHILS # 4.2 K/mm3 (1.8-7.7); NEUTROPHILS % 65.7 % (36.0-66.0); PLATELET COUNT, AUTOMATED 132 k/mm3 (150-450); RED CELL DISTRIBUTION WIDTH 17.2 % (11.5-14.5); WHITE BLOOD COUNT 6.4 K/mm3 (4.0-10.0)
[2016-11-13 07:19] LABS: ALBUMIN 3.1 GM/DL (3.2-5.2); CALCIUM LEVEL 8.7 MG/DL (8.8-10.2); CREATININE FOR GFR 3.46 MG/DL (0.70-1.30); GLOMERULAR FILTRATION RATE 19.2 (>49); PHOSPHORUS LEVEL 2.9 MG/DL (2.5-4.9)
[2016-11-13] MEDS: HumaLOG INSULIN (NovoLOG) PER UNIT SC SCH ×4 (09:14→21:00)
[2016-11-13] MEDS: HEPARIN SOD (PORCINE) 5000 UNITS/ML VIAL SC SCH ×2 (09:28→21:00)
[2016-11-13] MEDS: FUROSEMIDE 100 MG/10 ML VIAL (J1940) IV SCH ×2 (09:32→18:23)
[2016-11-13] MEDS: NYSTATIN 100,000 UNITS/GM TOPICAL PWD 15 GM TOP SCH ×2 (09:32→21:00)
[2016-11-13] MEDS: CARVedilol 3.125 MG TAB PO SCH ×2 (10:09→21:00)
[2016-11-13] MEDS: SENOKOT S TAB PO SCH ×2 (10:09→21:00)
[2016-11-13] MEDS: LEVEMIR (INSULIN DETEMIR) 1 UNITS/0.01ML SC SCH ×2 (10:09→21:00)
--- NOTE | 2016-11-13 11:15 | IPNPDOC ---
Subjective Date Seen The patient was seen on 11/13/16. Subjective Chief Complaint/HPI Patient seen and examined at the bedside this morning. Denies any acute complaints at this time. Objective Physical Examination General Exam: Positive: Alert, Cooperative, No Acute Distress Eye Exam: Negative: Sclera icteric ENT Exam: Positive: Atraumatic, Mucous membr. moist/pink Chest Exam: Positive: Normal air movement, Diminished, Negative: Rales, Rhonchi, Wheezing Heart Exam: Positive: Rate Normal, Normal S1, Normal S2, Negative: Gallops, Murmurs, Rubs Abdomen Exam: Positive: Soft, Negative: Tenderness, Hepatospenomegaly Extremity Exam: Negative: Tenderness Psych Exam: Positive: Oriented x 3 Assessment /Plan Problems (1) ESRD (end stage renal disease) Status: Chronic Response to Treatment: Stable Problem Text: Patient has missed multiple dialysis sessions in the past--I did discuss this with the patient directly. He does not provide an exact reason as to why this has been recurring. The patient has agreed to a psychiatric evaluation Nephrology on consult, and managing fluid balance with dialysis We will cont to monitor the patient's progress (2) CHF exacerbation Status: Resolved Response to Treatment: Stable Problem Text: Volume status improved following dialysis Cont Lasix as ordered Nephro on board for volume optimization with dialysis (3) Weak Status: Acute Response to Treatment: Stable Problem Text: PT on board (4) CAD (coronary artery disease) Status: Chronic Response to Treatment: Stable Problem Text: s/p double bypass ten years ago Records from [facility] in the chart about recent cardiac cath (5) DM2 (diabetes mellitus, type 2) Status: Chronic Response to Treatment: Stable Problem Text: sliding scale and fingersticks before meals and bedtime (6) HTN (hypertension) Status: Chronic Response to Treatment: Stable Problem Text: continue pts home Coreg with holding parameters (7) Secondary hyperparathyroidism Status: Chronic Response to Treatment: Stable Problem Text: c/w home calcitrol .25 mcg daily (8) DVT prophylaxis Status: Acute Response to Treatment: Stable Problem Text: pt on heparin therapy Plan/VTE VTE Prophylaxis Ordered?: Yes VS, I&O, 24H, Fish[facility] Vital Signs/I&O Vital Signs Date Time Temp Pulse Resp B/P (MAP) Pulse Ox O2 Delivery O2 Flow Rate FiO2 11/13/16 10:09 86 122/87 11/12/16 22:00 97.5 18 97 Room Air Laboratory Data 24H LABS Laboratory Tests 2 11/12/16 14:15: Bedside Glucose (Misc Panel) 206H 11/12/16 16:48: Bedside Glucose (Misc Panel) 131H 11/12/16 22:09: Bedside Glucose (Misc Panel) 170H 11/13/16 06:28: White Blood Count 6.4, Red Blood Count 4.27L, Hemoglobin 12.3L, Hematocrit 37.2L , Mean Corpuscular Volume 87.2, Mean Corpuscular Hemoglobin 28.9, Mean Corpuscular Hemoglobin Concent 33.1, Red Cell Distribution Width 17.2H, Platelet Count 132L, Neutrophils (%) (Auto) 65.7, Lymphocytes (%) (Auto) 13.1L, Monocytes (%) (Auto) 11.1H, Eosinophils (%) (Auto) 7.4H, Basophils (%) (Auto) 0.8, Neutrophils # (Auto) 4.2, Lymphocytes # (Auto) 0.8L, Monocytes # (Auto) 0.7 , Eosinophils # (Auto) 0.5, Basophils # (Auto) 0.0, Large Unclassified Cells % 1.8, Large Unclassified Cells # 0.1, Blood Urea Nitrogen 18, Creatinine 3.46H, Sodium Level 143, Potassium Level 4.0, Chloride Level 106, Carbon Dioxide Level 28, Anion Gap 9, Glomerular Filtration Rate 19.2L, Calcium Level 8.7L, Phosphorus Level 2.9, Albumin 3.1L CBC/BMP Laboratory Tests 11/13/16 06:28 Red Blood Count 4.27 L, Mean Corpuscular Volume 87.2, Mean Corpuscular Hemoglobin 28.9, Mean Corpuscular Hemoglobin Concent 33.1, Red Cell Distribution Width 17.2 H, Neutrophils (%) (Auto) 65.7, Lymphocytes (%) (Auto) 13.1 L, Monocytes (%) (Auto) 11.1 H, Eosinophils (%) (Auto) 7.4 H, Basophils (% ) (Auto) 0.8, Neutrophils # (Auto) 4.2, Lymphocytes # (Auto) 0.8 L, Monocytes # (Auto) 0.7, Eosinophils # (Auto) 0.5, Basophils # (Auto) 0.0, Anion Gap 9 RODDY ZHANG MD Nov 13, 2016 11:15
--- NOTE | 2016-11-13 13:23 | ECHO ---
DATE OF PROCEDURE: 11/12/2016 AGE: 61 GENDER: Male HEIGHT: 69 inches. WEIGHT: 253 pounds. BODY SURFACE AREA: 2.29 meter squared. LOCATION: Inpatient, [address] [place] [address], room 5142. REFERRING PHYSICIAN: Dr. Gloria Ruggiero INDICATION: Heart failure (unspecified). Post coronary artery bypass graft (CABG) in November 2009. ICD in situ. ([facility] in [place]). MEASUREMENTS 2-D measurements: RV - 4.3 cm LV - 6.1 cm Septum: 1.2 cm Posterior wall: 1.2 cm Aortic root: 3.1 cm LA - 5.4 cm LVEF: 15 - 20% DOPPLER MEASUREMENTS: AV - 0.97 m/s LVOT - 0.64 m/s LVOT diameter 2.2 cm MV-E 66, A 32, E/A ratio 2.1 Early mitral deceleration time 148 milliseconds E prime 4.5, A prime 3, E/E prime ratio 14.6 Estimated pulmonary artery pressure 10 mmHg PV - 0.5 m/s Pulmonary artery acceleration time 102 milliseconds RVST 55 mmHg IVC - 2.2 cm COMMENTS: Normal sinus rhythm with first-degree AV block but no current intraventricular conduction disturbance. Prominently dilated left atrium and moderately prominently dilated left ventricle. Mildly dilated right heart chambers. LV wall thickness was borderline increased symmetrically. On real-time imaging from the parasternal and projections wall motion, both left and right ventricles, was markedly decreased. No localized segmental wall motion abnormality. Mildly thickened mitral annulus with normal leaflet thickness. "Low flow" leaflet motion but no posterior systolic buckling. Three equal size aortic cusps with mildly thickened cusp edges and adequate cusp separation but premature cusp closure, again in keeping with reduced forward stroke volume. ICD lead visualized traversing right heart structures. No other intracardiac mass or pericardial effusion. Color flow Doppler study taken from the parasternal and projection showed very mild mitral, mild tricuspid and pulmonic but no aortic insufficiency. Guided continuous wave Doppler of his aortic valve showed a normal peak systolic velocity against LV outflow tract obstruction. Pulsed and continuous wave Doppler of his LV inflow tract taken from the apical four-chamber projection showed normal diastolic filling velocities against mitral stenosis. There was a "pseudo normal" filling pattern with more prominent early diastolic/passive filling pattern. Early mitral deceleration time was lower limits of normal. Diastolic dysfunction was further confirmed using tissue Doppler of his mitral annulus but his current calculated mean PCWP showed it to be PAWP was within normal limits. Pulsed and continuous wave Doppler of his pulmonary trunk showed a normal peak systolic velocity against RV outflow tract obstruction. Pulmonary artery acceleration time was abbreviated consistent with an elevated pulmonary vascular resistance. Guided continuous wave Doppler of his tricuspid valve allowed our estimation of his right ventricular systolic pressure (at least moderately severely increased). His inferior vena cava was at least mildly dilated with reduced respiratory collapse consistent with an elevated central venous pressure/right heart failure. 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 Moderately dilated left atrium with Doppler evidence of an impairment of LV diastolic function but currently estimated mean left atrial pressure within normal limits. Mildly dilated and severely hypokinetic right heart chambers with Doppler evidence of moderately severe pulmonary hypertension. Dilated IVC and reduced respiratory collapse consistent with right heart failure. Aortic valvular sclerosis and mitral annular thickening without hemodynamically significant valvular abnormality. Thank you, Oliver Ruffin MD [facility]
[2016-11-13 14:00] VITALS: BP 118/58
--- NOTE | 2016-11-13 16:48 | IPN ---
DATE: 11/13/2016 SUBJECTIVE: Mr. Weber was seen this morning on his bedside. He is more interactive today and we had a good conversation. The patient has been noncompliant with dialysis treatment for weeks at a stretch. He has been hospitalized at least twice during last couple of months. He stopped coming to dialysis without any reason and did not answer his phone calls. He was admitted with shortness of breath and was found to be grossly volume overloaded and uremic. He underwent hemodialysis three days in a row and his volume status has improved. His last dialysis was performed yesterday. We have removed about 12 liters of fluid in last three days with hemodialysis. The patient reports that he has started to ambulate with the help of the walker. He denies any nausea or vomiting. His dyspnea has improved and leg edema has also improved significantly. He has no fever or chills. PHYSICAL EXAMINATION: VITAL SIGNS: Temperature 97.5 degrees Fahrenheit, heart rate 86 per minute and respiratory rate 18 per minute. Blood pressure 122/86 mmHg and oxygen saturation 97% on room air. HEAD/NECK: Head is atraumatic. Neck is supple and without jugular venous distention (JVD) or thyroid enlargement. Ears, nose and throat are unremarkable. CARDIORESPIRATORY: Heart sounds are regular and lungs sound clear to auscultation. ABDOMEN: Obese, soft and nontender. There is no palpable organomegaly and bowel sounds are normal. EXTREMITIES: Have no cyanosis or clubbing. His right forearm arteriovenous (AV) fistula is patent. Lower extremities have 1+ leg edema. NEUROLOGIC: He is awake, alert and oriented times three. LABORATORY DATA: Today's labs show WBC count 6.4, hemoglobin 12.3, hematocrit 37.2. Platelets 132. Sodium 143 and potassium 4.0. BUN 18 and creatinine 3.46. PROBLEMS: 1. End-stage renal disease. The patient was dialyzed yesterday which he tolerated very well. He is regularly dialyzed on Monday, Monday and Monday schedule. 2. Shortness of breath and volume overload. We removed four liters fluid every day for the last three days with hemodialysis. His volume status is now reasonably well-compensated. His next dialysis will be scheduled for Monday, which is his regular day. 3. Noncompliance with dialysis treatment. I have discussed with the patient at length about his noncompliance issue. I feel that he has significant depression and have recommended a psychiatric evaluation before the patient gets discharged. 4. Hypertension. Blood pressure is very well controlled and current antihypertensive medications are appropriate. 5. Diabetes. His diabetes is also reasonably well-controlled at least here in the hospital. The patient will need to be compliant with his medications including insulin at home. 6. Disposition: Patient wishes to go home; however, I feel that psychiatric evaluation is critical. I have discussed with him about a need for regular followup at outpatient dialysis clinic. The patient remains vague about his situation and still not committing to compliance.
[2016-11-14] MEDS: SLF 3 ML SYR IV SCH ×3 (05:03→22:00)
[2016-11-14 06:00] VITALS: BP 110/72
[2016-11-14 06:52] LABS: BASO # 0.1 K/mm3 (0.0-0.2); BASO % 0.9 % (0.0-1.0); EOS # 0.5 K/mm3 (0.0-0.50); EOS % 7.1 % (0.0-3.0); LARGE UNSTAINED CELL # 0.1 K/mm3 (0.0-0.4); LYMPH # 0.9 K/mm3 (1.5-4.5); LYMPH % 12.9 % (24.0-44.0); MEAN CORPUSCULAR HEMOGLOBIN 28.4 pg (27.0-33.0); MEAN CORPUSCULAR HGB CONC 32.6 g/dl (32.0-36.5); MEAN CORPUSCULAR VOLUME 87.1 fl (80.0-96.0); MONO # 0.7 K/mm3 (0.0-0.8); MONO % 9.9 % (0.0-5.0); NEUTROPHILS # 4.6 K/mm3 (1.8-7.7); NEUTROPHILS % 67.1 % (36.0-66.0); PLATELET COUNT, AUTOMATED 146 k/mm3 (150-450); RED CELL DISTRIBUTION WIDTH 17.1 % (11.5-14.5); WHITE BLOOD COUNT 6.9 K/mm3 (4.0-10.0)
[2016-11-14 07:20] LABS: ALBUMIN 3.2 GM/DL (3.2-5.2); CALCIUM LEVEL 8.7 MG/DL (8.8-10.2); CREATININE FOR GFR 4.18 MG/DL (0.70-1.30); GLOMERULAR FILTRATION RATE 15.4 (>49); PHOSPHORUS LEVEL 3.2 MG/DL (2.5-4.9)
[2016-11-14 08:00] VITALS: BP 120/84
[2016-11-14] MEDS: CARVedilol 3.125 MG TAB PO SCH ×2 (08:34→21:00)
[2016-11-14] MEDS: LEVEMIR (INSULIN DETEMIR) 1 UNITS/0.01ML SC SCH ×2 (08:35→21:00)
[2016-11-14] MEDS: HumaLOG INSULIN (NovoLOG) PER UNIT SC SCH ×4 (08:36→21:00)
[2016-11-14] MEDS: FUROSEMIDE 100 MG/10 ML VIAL (J1940) IV SCH ×2 (08:38→17:00)
[2016-11-14] MEDS: NYSTATIN 100,000 UNITS/GM TOPICAL PWD 15 GM TOP SCH ×2 (08:41→21:00)
[2016-11-14] MEDS: HEPARIN SOD (PORCINE) 5000 UNITS/ML VIAL SC SCH ×2 (08:41→21:00)
[2016-11-14] MEDS: SENOKOT S TAB PO SCH ×2 (08:41→21:00)
[2016-11-14] MEDS ORDERED: HEPARIN 1,000 UNITS/ML 10ML VIAL (FOR RADIOLOGY& DIALYSIS ONLY) IV ONE (11:00)
--- NOTE | 2016-11-14 11:24 | IPN ---
DATE: 11/14/2016 Mr. Weber is seen this morning during hemodialysis on his bedside. He was dialyzed three times last week in a row due to missed dialysis treatments, uremia and volume overload. He remains somewhat weak and has difficulty in getting up. His dyspnea and leg edema has improved. PHYSICAL EXAMINATION: Temperature 97.8 degrees Fahrenheit, heart rate 85 per minute and respiratory rate 18 per minute. Blood pressure 120/84 mmHg and oxygen saturation is 100% on room air. Head is atraumatic. Neck is supple and without jugular venous distention (JVD) or thyroid enlargement. Heart sounds are regular and lungs clear to auscultation. Abdomen obese, soft and nontender. Extremities with no cyanosis or clubbing. Lower extremity edema is about 1+. Today's labs show WBC count 6.9, hemoglobin 12.6 and hematocrit 38.6. Platelets 146. Sodium 138 and potassium 4.0. BUN is 23 and creatinine 4.18. PROBLEMS: 1. End-stage renal disease. Today is his regular dialysis day. The patient is being dialyzed today. We will continue and complete dialysis treatment. 2. Volume overload/leg edema. His volume status has also improved significantly. Will remove fluid now only as tolerated. We have so far removed about 12 liters of fluid with hemodialysis. 3. Generalized weakness and deconditioning. The patient still remains weak and probably requires further physical therapy. 4. Noncompliance and depression. The patient remains somewhat withdrawn and does not interact very well. I feel that he has significant depression due to which he has been noncompliant with dialysis treatment. We are waiting for a psych evaluation.
--- NOTE | 2016-11-14 11:50 | IPNPDOC ---
Subjective Date Seen The patient was seen on 11/14/16. Subjective Chief Complaint/HPI Patient seen and examined at the bedside. States that he is feeling better following his dialysis sessions, and denies any acute complaints. He does remain rather vague when discussing why he has not been taking any of his medications here at the hospital. Objective Physical Examination General Exam: Positive: Alert, Cooperative, No Acute Distress Eye Exam: Negative: Sclera icteric ENT Exam: Positive: Atraumatic, Mucous membr. moist/pink Chest Exam: Positive: Normal air movement, Diminished, Negative: Rales, Rhonchi, Wheezing Heart Exam: Positive: Rate Normal, Normal S1, Normal S2, Negative: Gallops, Murmurs, Rubs Abdomen Exam: Positive: Soft, Negative: Tenderness, Hepatospenomegaly Extremity Exam: Negative: Tenderness Psych Exam: Positive: Oriented x 3 Assessment /Plan Problems (1) Non-adherence to medical treatment Problem Text: Psych consulted regarding possible underlying Depression (2) ESRD (end stage renal disease) Status: Chronic Response to Treatment: Stable Problem Text: Patient has missed multiple dialysis sessions in the past--I did discuss this with the patient directly. He does not provide an exact reason as to why this has been recurring. The patient has agreed to a psychiatric evaluation Nephrology on consult, and managing fluid balance with dialysis We will cont to monitor the patient's progress (3) CHF exacerbation Status: Resolved Response to Treatment: Stable Problem Text: Volume status improved following dialysis Cont Lasix as ordered Nephro on board for volume optimization with dialysis (4) Weak Status: Acute Response to Treatment: Stable Problem Text: PT on board (5) CAD (coronary artery disease) Status: Chronic Response to Treatment: Stable Problem Text: s/p double bypass ten years ago Records from [facility] in the chart about recent cardiac cath (6) DM2 (diabetes mellitus, type 2) Status: Chronic Response to Treatment: Stable Problem Text: sliding scale and fingersticks before meals and bedtime (7) HTN (hypertension) Status: Chronic Response to Treatment: Stable Problem Text: continue pts home Coreg with holding parameters (8) Secondary hyperparathyroidism Status: Chronic Response to Treatment: Stable Problem Text: c/w home calcitrol .25 mcg daily (9) DVT prophylaxis Status: Acute Response to Treatment: Stable Problem Text: pt on heparin therapy Plan/VTE VTE Prophylaxis Ordered?: Yes VS, I&O, 24H, Fishbone Vital Signs/I&O Vital Signs Date Time Temp Pulse Resp B/P (MAP) Pulse Ox O2 Delivery O2 Flow Rate FiO2 11/14/16 08:34 85 120/84 11/14/16 08:30 Room Air 11/14/16 08:00 18 11/14/16 06:00 97.8 100 I&O- Last 24 Hours up to 6 AM 11/15/16 06:00 Intake Total 118 ml Balance 118 ml Laboratory Data 24H LABS Laboratory Tests 2 11/13/16 16:59: Bedside Glucose (Misc Panel) 111 11/14/16 06:34: White Blood Count 6.9, Red Blood Count 4.43, Hemoglobin 12.6L, Hematocrit 38.6L , Mean Corpuscular Volume 87.1, Mean Corpuscular Hemoglobin 28.4, Mean Corpuscular Hemoglobin Concent 32.6, Red Cell Distribution Width 17.1H, Platelet Count 146L, Neutrophils (%) (Auto) 67.1H, Lymphocytes (%) (Auto) 12.9L , Monocytes (%) (Auto) 9.9H, Eosinophils (%) (Auto) 7.1H, Basophils (%) (Auto) 0.9, Neutrophils # (Auto) 4.6, Lymphocytes # (Auto) 0.9L, Monocytes # (Auto) 0.7 , Eosinophils # (Auto) 0.5, Basophils # (Auto) 0.1, Large Unclassified Cells % 2.0, Large Unclassified Cells # 0.1, Blood Urea Nitrogen 23H, Creatinine 4.18H, Sodium Level 138, Potassium Level 4.0, Chloride Level 102, Carbon Dioxide Level 26, Anion Gap 10, Glomerular Filtration Rate 15.4L, Calcium Level 8.7L, Phosphorus Level 3.2, Albumin 3.2 11/14/16 07:07: Bedside Glucose (Misc Panel) 129H CBC/BMP Laboratory Tests 11/14/16 06:34 Red Blood Count 4.43, Mean Corpuscular Volume 87.1, Mean Corpuscular Hemoglobin 28.4, Mean Corpuscular Hemoglobin Concent 32.6, Red Cell Distribution Width 17.1 H, Neutrophils (%) (Auto) 67.1 H, Lymphocytes (%) (Auto) 12.9 L, Monocytes (%) (Auto) 9.9 H, Eosinophils (%) (Auto) 7.1 H, Basophils (%) (Auto) 0.9, Neutrophils # (Auto) 4.6, Lymphocytes # (Auto) 0.9 L, Monocytes # (Auto) 0.7, Eosinophils # (Auto) 0.5, Basophils # (Auto) 0.1, Anion Gap 10 RODDY ZHANG MD Nov 14, 2016 11:49
[2016-11-14 14:00] VITALS: BP 100/70
--- NOTE | 2016-11-14 21:11 | MHCR ---
DATE OF CONSULTATION: 11/14/2016 CHIEF COMPLAINT: "I am doing okay." SUBJECTIVE: He is 61 years old. He is single and has no children. He has multiple medical problems, including end stage renal disease, he is on hemodialysis for the past at least one year. I have been asked to see him by the hospitalist, Dr. Schmitz, as the patient has recent history of not attending dialysis sessions on multiple occasions more recently and he ended up in the hospital a few weeks ago, perhaps a month ago at [facility] and was there for about a week or so, was stabilized, discharged, and subsequent to that did not followup with hemodialysis, got ill again, felt dizzy, felt tired, went to the hospital at [facility] and was transferred here. His assembler convertible top is Dr. Stark and the clinicians there. Dr. Neal has had the patient transferred here. The patient is interviewed. Chart is reviewed. Some history is also obtained from Dr. Schmitz, the hospitalist. The patient says that he has not been doing well for a while though is somewhat vague on this, but says was upset that he was not helped at [facility], says ended up there as he was getting increasingly ill, feeling tired, says was there for about one week and then suggests that he left. Apparently he left against medical advice. He says they did not suggest any followup as such, but he was aware that he was due to followup with Dr. Stark's office since he has been attending dialysis with them. Says that there are times when he feels tired. Does not feel like doing much, gets restless and that it is difficult for him to get to his car to drive himself to dialysis and therefore misses it. Says at times his cousin, whom he lives with, and who is also dependent on dialysis, assists him in getting to the car. He also says that she gets assistance from transportation, has to walk a couple of minutes to wait for the bus, which comes to pick her up. He says that he is not able to do that, does not feel that he needs to either, though acknowledges that his abilities at times are diminished. He also suggests that he does not like asking for assistance or bothering others. Acknowledges feels depressed a fair amount of the time and that his motivation is diminished. Says that there are times that he wants to do things but feels too tired to do them. He feels that he sleeps okay and that appetite has been okay as well. Acknowledges that there are times that he wishes he could . Says he has thought of missing dialysis altogether, knowing that this will lead to his . Denies he has ever been actively suicidal lately, suggests has been in the past within the last few months, though somewhat vague on this. Denies any particular plans that he had thought of. He says that he gets along with his cousin. He also acknowledges that there are times when he gets irritated. He says that he has been offered assistance, what sounds like home health aides, but he has declined them, though is vague on this as well. Says his cousin does the cooking and the cleaning. Says has no friends as such, no visitors. Has no family around either. No history consistent with hypomania nor suhas, as far as I am aware, nor of any psychosis. PAST PSYCHIATRIC HISTORY: None formally. Says has never seen a mental health professional or been recommended to see on. FAMILY PSYCHIATRIC HISTORY: Unknown. SUBSTANCE ABUSE HISTORY: Denies any. MEDICAL HISTORY: This is extensive. Please refer to the assembler convertible top's summary for details. The patient has a history of end stage renal disease, congestive heart failure (CHF) with reduced ejection fraction, has an AICD placed (automatic implantable cardioverter defibrillator). He has a history of diabetes mellitus type 2, as well as hypertension, gastroesophageal reflux disease (GERD), hyperlipidemia, coronary artery disease, hyperparathyroidism. SURGICAL HISTORY: Has a history of coronary artery bypass graft (CABG). Has an AV fistula. He has a history of a brain aneurysm, for which he has had surgery in the past. I am not aware of the details ALLERGIES: He is allergic to EGGS and EGG PRODUCTS. SOCIAL HISTORY: He lives with his cousin, who is also dependent on hemodialysis. The patient graduated high school, says was raised in [place] [facility]. Has no family around. He has no children. MENTAL STATUS EXAMINATION: A bit unkempt. He is lying in bed. He is generally cooperative with the interview. He seems to be hard of hearing at times. There is no agitation. Some psychomotor retardation. He answers questions logically, coherently, but briefly. He denies any suicidal thoughts or intents. No evidence of any homicidal ideas or intents. Does not appear to be internally preoccupied. Currently there is no fluctuation of consciousness. His attention and concentration are fairly good. He can spell the word "house" forwards and backwards. He is alert, oriented to time, place and person. He can recall one out of three objects after five minutes, after prompting. Intellect is average. Judgment is fair to good. Insight is fair. ASSESSMENT: 1. Unspecified depressive disorder. 2. Rule out major depressive disorder. The other possibility includes depressive disorder secondary to chronic illness, in this case chronic renal disease. He is clinically depressed, significantly so, and this at times has an impact on his ability to go for dialysis, leading to further deterioration of his health. He is not actively suicidal at present, though has thoughts of stopping dialysis so he can . He has been reluctant to accept assistance from others, which further hampers his functioning. He is more amenable to assistance, he says, for example through psych social worker than he has been. Short term memory may be impaired a bit, though it is hard to determine on this examination. He has a history of treated brain aneurysm. RECOMMENDATIONS: I would suggest starting him on an antidepressant, SSRI, would suggest Zoloft at 25 mg daily for the next 2 weeks or so and then increasing it to 50 mg daily. I would also explore his social situation for details and recommend that he is referred to assistance that may be available for him, for example home health aides, assistance with transportation for dialysis, and possibly Adult Protective Services as well. He seems to be more amenable to accepting assistance at present than he has been in the past. I would also suggest that he be seen by a counselor for emotional support, particularly this can be arranged through psych social worker, counselor visiting him in house. Referral to psychiatry as an outpatient would also be potentially beneficial. I have discussed this with the patient and he agrees with the plan, though it ought to be mentioned that he may change his mind later on. Thank you for the consultation. If there are any questions, please call. The assessment took 45 minutes.
[2016-11-14 22:00] VITALS: BP 99/61
[2016-11-15] MEDS: SLF 3 ML SYR IV SCH ×2 (05:04→14:00)
[2016-11-15 06:00] VITALS: BP 112/78
[2016-11-15 06:48] LABS: BASO # 0.1 10^3/uL (0.0-0.2); BASO % 0.8 % (0.0-1.0); EOS # 0.4 10^3/uL (0.0-0.50); EOS % 5.1 % (0.0-3.0); IMMATURE GRANULOCYTE % 0.5 % (0-0); LYMPH % 13.2 % (24.0-44.0); MEAN CORPUSCULAR HEMOGLOBIN 27.5 pg (27.0-33.0); MEAN CORPUSCULAR HGB CONC 31.6 g/dl (32.0-36.5); MONO # 1.1 10^3/uL (0.0-0.8); MONO % 14.4 % (0.0-5.0); NEUTROPHILS # 5.1 10^3/uL (1.8-7.7); PLATELET COUNT, AUTOMATED 134 10^3/uL (150-450); RED CELL DISTRIBUTION WIDTH 18.2 % (11.5-14.5); WHITE BLOOD COUNT 7.7 10^3/uL (4.0-10.0)
[2016-11-15 07:22] LABS: ALBUMIN 3.1 GM/DL (3.2-5.2); CALCIUM LEVEL 9.1 MG/DL (8.8-10.2); CREATININE FOR GFR 3.83 MG/DL (0.70-1.30); GLOMERULAR FILTRATION RATE 17.1 (>49); PHOSPHORUS LEVEL 2.6 MG/DL (2.5-4.9); POTASSIUM SERUM 4.1 MEQ/L (3.5-5.1)
[2016-11-15] MEDS: HumaLOG INSULIN (NovoLOG) PER UNIT SC SCH ×2 (07:30→12:00)
[2016-11-15] MEDS ORDERED: SERTRALINE HCL 25 MG TABLET PO SCH (09:00)
[2016-11-15] MEDS: HEPARIN SOD (PORCINE) 5000 UNITS/ML VIAL SC SCH (09:00)
[2016-11-15] MEDS: SENOKOT S TAB PO SCH (09:00)
[2016-11-15] MEDS: LEVEMIR (INSULIN DETEMIR) 1 UNITS/0.01ML SC SCH (09:04)
[2016-11-15 09:05] VITALS: BP 112/78
[2016-11-15] MEDS: CARVedilol 3.125 MG TAB PO SCH (09:05)
[2016-11-15] MEDS: FUROSEMIDE 100 MG/10 ML VIAL (J1940) IV SCH (09:06)
[2016-11-15] MEDS: NYSTATIN 100,000 UNITS/GM TOPICAL PWD 15 GM TOP SCH (09:07)
--- NOTE | 2016-11-15 10:51 | DS.PDOC ---
Discharge Summary General Date of Admission Nov 09, 2016 at 22:24 Date of Discharge 11-15-16 Discharge Summary PROCEDURES PERFORMED DURING STAY: dialysis ADMITTING DIAGNOSES: 1. .CHF exacerbation 2. ESRD 3. CAD s/p CABG 4. DM2 5. HTN 6. Morbid obesity 7. Weakness/difficulty in ambulation 8. Secondary hyperparathyroidism DISCHARGE DIAGNOSES: 1. Non-adherence to medical treatment 2. ESRD 3. CHF exacerbation 4. Weakness 5. CAD s/p CABG 6. DM2 7. Secondary hyperparathyroidism COMPLICATIONS/CHIEF COMPLAINT: Fluid Overload. HISTORY OF PRESENT ILLNESS: 61-year-old male who was transferred from [facility] Room for congestive heart failure, fluid overload, and missing multiple dialysis sections. HOSPITAL COURSE: During the course of his hospital stay the pt has had a total of three dialysis appointments and states that he is feeling much better. He worked with physical therapy who recommended home PT on outpt f/u. The pt. was seen and evaluated by a psychiatrist inpt and diagnosed with depression with recommendation of daily Zoloft. He was also monitored by nephrology as well. On day of d/c the pt is in good spirits and understands the importance of regularly attending his dialysis treatments so that he does not end up in the hospital again for the same reason as this admissions and many before. DISCHARGE MEDICATIONS: Please see below. ALLERGIES: Please see below. PHYSICAL EXAMINATION ON DISCHARGE: VITAL SIGNS: Please see below. GENERAL: laying comfortably in bed, obese, watching television, NAD, pleasant. HEENT: NCAT, EOMI, nares patent b/l, NECK: supple CARDIOVASCULAR EXAMINATION: normal s1 and s2, no murmus, rubs or gallops appreciated RESPIRATORY EXAMINATION: diminished due to body habitus, no wheezing, rales, rhonchi or crackles appreciated ABDOMINAL EXAMINATION: soft, obese, NABSx4, non-tender, no fluid wave, no rebound ridgity or guarding EXTREMITIES: chronic edema b/l LE +1, no cyanosis, good perfusion to all extremities. No clubbing. SKIN: intact NEUROLOGICAL EXAMINATION: no focal deficits appreciated PSYCHIATRIC EXAMINATION: appears in better spirits today than previous days, normal affect LABORATORY DATA: Please see below. IMAGING: CXR 11-09-16 Impression: Cardiomegaly. Moderate congestive heart failure. Right lower lobe infiltrate PROGNOSIS: stable ACTIVITY: As tolerated with home PT recommendation DIET: constant carb and low fat DISCHARGE PLAN: home with close f/u with PCP and nephrology DISPOSITION: Stable to home DISCHARGE INSTRUCTIONS: 1. f/u with PCP and nephrology within one week of d/c and psych within one week of d/c 2. Go to dialysis appt tomorrow ITEMS TO FOLLOWUP ON ON OUTPATIENT: 1. f/u with PCP and nephrology within one week of d/c and psych within one week of d.c 2. Go to dialysis appt tomorrow DISCHARGE CONDITION: Stable TIME SPENT ON DISCHARGE: Greater than 35 minutes. Vital Signs/I&Os Vital Signs Date Time Temp Pulse Resp B/P (MAP) Pulse Ox O2 Delivery O2 Flow Rate FiO2 11/15/16 09:05 77 112/78 11/15/16 08:00 Room Air 11/15/16 06:00 97.9 16 94 I&O- Last 24 Hours up to 6 AM 11/16/16 06:00 Intake Total 480 ml Balance 480 ml Laboratory Data Labs 24H Laboratory Tests 2 11/14/16 20:56: Bedside Glucose (Misc Panel) 216H 11/15/16 06:32: White Blood Count 7.7, Red Blood Count 4.40, Hemoglobin 12.1L, Hematocrit 38.3L , Mean Corpuscular Volume 87.0, Mean Corpuscular Hemoglobin 27.5, Mean Corpuscular Hemoglobin Concent 31.6L, Red Cell Distribution Width 18.2H, Platelet Count 134L, Neutrophils (%) (Auto) 66.0, Lymphocytes (%) (Auto) 13.2L, Monocytes (%) (Auto) 14.4H, Eosinophils (%) (Auto) 5.1H, Basophils (%) (Auto) 0.8, Neutrophils # (Auto) 5.1, Lymphocytes # (Auto) 1.0L, Monocytes # (Auto) 1.1H, Eosinophils # (Auto) 0.4, Basophils # (Auto) 0.1, Immature Granulocyte # ( Auto) 0.0, Nucleated Red Blood Cells % (auto) 0.0, Blood Urea Nitrogen 19H, Creatinine 3.83H, Sodium Level 138, Potassium Level 4.1, Chloride Level 101, Carbon Dioxide Level 30, Anion Gap 7L, Glomerular Filtration Rate 17.1L, Calcium Level 9.1, Phosphorus Level 2.6, Albumin 3.1L CBC/BMP Laboratory Tests 11/15/16 06:32 Red Blood Count 4.40, Mean Corpuscular Volume 87.0, Mean Corpuscular Hemoglobin 27.5, Mean Corpuscular Hemoglobin Concent 31.6 L, Red Cell Distribution Width 18.2 H, Neutrophils (%) (Auto) 66.0, Lymphocytes (%) (Auto) 13.2 L, Monocytes (% ) (Auto) 14.4 H, Eosinophils (%) (Auto) 5.1 H, Basophils (%) (Auto) 0.8, Neutrophils # (Auto) 5.1, Lymphocytes # (Auto) 1.0 L, Monocytes # (Auto) 1.1 H, Eosinophils # (Auto) 0.4, Basophils # (Auto) 0.1, Anion Gap 7 L FSBS Laboratory Tests Test 11/14/16 20:56 Range/Units Bedside Glucose (Misc Panel) 216 80-115 MG/DL Discharge Medications Scheduled (Sertraline HCl) 25 Mg Tab, 25 MG PO DAILY, (Reported) PATIENT STATES THAT HE HAS NOT STARTED YET Carvedilol (Carvedilol) 3.125 Mg Tab, 3.125 MG PO BID, (Reported) PATIENT STATES THAT HE HAS NOT STARTED YET Ergocalciferol (Vitamin D) 50,000 Unit Cap, 50,000 UNIT PO ASDIRECTED, (Reported ) TAKES ON MONDAY MORNINGS Insulin Aspart (Novolog) 100 U/Ml Inj, 1 DOSE SC AC, (Reported) PER SLIDING SCALE Insulin Glargine (Lantus) 1 Units/0.01 Ml Susp, 40 UNITS SC BID, (Reported) Spironolactone (Spironolactone) 25 Mg Tab, 25 MG PO DAILY, (Reported) Allergies Coded Allergies: Eggs or Egg-derived Products (Unverified Adverse Reaction, Intermediate, DIARRHEA, UPSET STOMACH, 12/02/15) GME ATTESTATION GME ATTESTATION My preceptor for this patient encounter was physically present in the building during the encounter and was fully available. As needed, all aspects of the patient interview, examination, medical decision making process, and medical care plan development were reviewed and approved by the preceptor. Preceptor is aware and concurs with the plan as stated in the body of this note and will attest to such by his/her cosignature. JOSE MACARIO DO Nov 15, 2016 10:51 TATO VILLANUEVA DO Nov 30, 2016 17:33
[2016-11-15] MEDS ORDERED: CARV3.12 PO (11:53)
[2016-11-15] MEDS ORDERED: SERT25TA PO (11:53)
== END 2016-11-15 14:30 | disposition home or self-care (01) | DRG 291 ==
LOC: M PCU 22:24 → M MS5PR 11-11 14:26
PROVIDERS: ADMIT Internal Medicine Nephrology; ATTEND Internal Medicine
PROC: 5A1D00Z (ICD-10-PCS; principal; 2016-11-10)
DX: I13.2 Hypertensive heart and chronic kidney disease with heart failure and with stage 5 chronic kidney disease, or end stage renal disease (principal); N18.6 End stage renal disease; I50.23 Acute on chronic systolic (congestive) heart failure; N25.81 Secondary hyperparathyroidism of renal origin; Z91.15 Patient's noncompliance with renal dialysis; Z91.19 Patient's noncompliance with other medical treatment and regimen; I25.10 Atherosclerotic heart disease of native coronary artery without angina pectoris; E11.9 Type 2 diabetes mellitus without complications; E66.01 Morbid (severe) obesity due to excess calories; Z79.4 Long term (current) use of insulin; Z79.899 Other long term (current) drug therapy; K21.9 Gastro-esophageal reflux disease without esophagitis; E78.5 Hyperlipidemia, unspecified; Z95.810 Presence of automatic (implantable) cardiac defibrillator; Z91.012 Allergy to eggs; D63.1 Anemia in chronic kidney disease; F32.9 Major depressive disorder, single episode, unspecified

== ENCOUNTER 2016-11-23 16:30 | Inpatient (IN) | payer MEDICARE ==
[~2016-11-23] VITALS: Ht 175.3 cm; Wt 82.8 kg
[~2016-11-23 16:30] MED LIST changes: +CARV25TA PO; +CARV3.12 PO; +PATIENT COMMENT; +SERT25TA PO
[2016-11-23 17:23] LABS: BASO # 0.1 10^3/uL (0.0-0.2); EOS # 0.4 10^3/uL (0.0-0.50); EOS % 4.5 % (0.0-3.0); IMMATURE GRANULOCYTE % 0.8 % (0-0); LYMPH # 0.8 10^3/uL (1.5-4.5); LYMPH % 10.8 % (24.0-44.0); MEAN CORPUSCULAR HEMOGLOBIN 27.4 pg (27.0-33.0); MEAN CORPUSCULAR HGB CONC 31.9 g/dl (32.0-36.5); MEAN CORPUSCULAR VOLUME 85.8 fl (80.0-96.0); MONO % 12.9 % (0.0-5.0); NEUTROPHILS # 5.4 10^3/uL (1.8-7.7); PLATELET COUNT, AUTOMATED 204 10^3/uL (150-450); RED CELL DISTRIBUTION WIDTH 17.8 % (11.5-14.5); WHITE BLOOD COUNT 7.7 10^3/uL (4.0-10.0)
[2016-11-23 17:25] LABS: ADD MORPHOLOGY? NO
[2016-11-23 17:50] LABS: ALBUMIN 3.2 GM/DL (3.2-5.2); ALBUMIN/GLOBULIN RATIO 0.78 (1.00-1.93); BILIRUBIN,DIRECT 0.8 MG/DL (0.0-0.2); BILIRUBIN,TOTAL 1.5 MG/DL (0.2-1.0); CREATININE FOR GFR 7.18 MG/DL (0.70-1.30); GLOMERULAR FILTRATION RATE 8.3 (>49); POTASSIUM SERUM 4.3 MEQ/L (3.5-5.1); TOTAL PROTEIN 7.3 GM/DL (6.4-8.2)
--- NOTE | 2016-11-23 21:30 | REPUSA ---
CLINICAL HISTORY: Dyspnea COMMENTS: S/p median sternotomy and CABG. Dual-lead pacemaker is noted in the left chest wall. The cardiac silhouette is enlarged. There is evidence for pulmonary venous congestion compatible with CHF. There is no definite radiographic evidence for a lung mass or consolidation. Bony structures appear normal. IMPRESSION: 1. Enlarged cardiac silhouette. 2. Pulmonary venous congestion compatible with CHF. Thank you for your kind referral of this patient.
[2016-11-23] MEDS ORDERED: SERT25TA88 PO (22:53)
[2016-11-23] MEDS ORDERED: CARV3.12 PO (22:53)
[2016-11-24] MEDS ORDERED: ACETAMINOPHEN TAB 650MG DOSE (2X325MG) PO PRN (00:30)
[2016-11-24 04:00] VITALS: BP 143/94
--- NOTE | 2016-11-24 07:58 | ECGEPIP ---
Stationary ECG Study [facility] - ED Test Date: 2016-11-23 Pat Name: YADIEL WAHL Department: Room: [place] [address] Gender: M Concrete Spreader: zechariah : [id number] Requested By: Marlin Bird Order Number: [id number] Reading MD: Marlin Bird Measurements Intervals [place] Rate: 88 P: IN: 0 QRS: -38 QRSD: 92 T: 124 QT: 369 QTc: 447 Interpretive Statements NSR FIRST DEGREE AV BLOCK LOW QRS VOLTAGE IN EXTREMITY LEADS INFERIOR MYOCARDIAL INFARCTION, PROBABLY OLD ANTEROSEPTAL MYOCARDIAL INFARCTION, PROBABLY OLD SIMILAR 11/09/16 Electronically Signed On 11-24-2016 7:57:57 EDT by Marlin Bird
[2016-11-24 08:00] VITALS: BP 131/84
--- NOTE | 2016-11-24 08:24 | HPEPDOC ---
General Date of Admission Nov 24, 2016 at 00:27 Primary Care Physician: Priyanka Schaefer MD Attending Physician: THADDEUS SHI MD Chief Complaint The patient is a 61-year-old male admitted with a reason for visit of Chf, Esrd On Dialysis. Source: Patient Exam Limitations: No limitations Timing/Duration: Week(s) (1) Severity: Severe Associated Symptoms: Malaise, Shortness of breath, Weakness History of Present Illness 61-year-old male , history of CAD status post CABG, CHF, status post AICD, brain aneurysm status post clipping, ESRD on hemodialysis Monday, Monday, Monday, recently admitted for a missing hemodialysis last week, presents to the emergency room for another episode of missing hemodialysis for 1 week since the time of his discharge. He complains that after his discharge he had no energy to go to the hemodialysis center so he Sitting at His Home and Missing All the Hemodialysis Appointments, to his condition was worsening of to present to the emergency room. During his last admission last week. He was transferred from [facility] Emergency Room for CHF, fluid overload, and missing dialysis. He had similar presentation during the last admission. The patient states that he missed dialysis because he could not walk. He was dizzy, had unsteady gait and very weak, so he could not get out of bed and climb into the dialysis van, so could not go for dialysis. The patient denies any fever or chills, does complain of some intermittent cough without much phlegm production. Denies any chest pain, had some shortness of breath which worsens when he tries to walk or do any activity. Denies any abdominal pain and nausea, vomiting or diarrhea. Home Medications Scheduled (Sertraline HCl) 25 Mg Tab, 25 MG PO DAILY, (Reported) PATIENT STATES THAT HE HAS NOT STARTED YET Carvedilol (Carvedilol) 3.125 Mg Tab, 3.125 MG PO BID, (Reported) PATIENT STATES THAT HE HAS NOT STARTED YET Ergocalciferol (Vitamin D) 50,000 Unit Cap, 50,000 UNIT PO ASDIRECTED, (Reported ) TAKES ON MONDAY MORNINGS Insulin Aspart (Novolog) 100 U/Ml Inj, 1 DOSE SC AC, (Reported) PER SLIDING SCALE Insulin Glargine (Lantus) 1 Units/0.01 Ml Susp, 40 UNITS SC BID, (Reported) Spironolactone (Spironolactone) 25 Mg Tab, 25 MG PO DAILY, (Reported) Allergies Coded Allergies: Eggs or Egg-derived Products (Unverified Adverse Reaction, Intermediate, DIARRHEA, UPSET STOMACH, 12/02/15) Past Medical History Medical History CHF, ESRD on hemodialysis, CAD, hypertension, diabetes mellitus type 2, brain aneurysm, Surgical History AV fistula CABG, brain aneurysm clipping, AICD, Social History * Smoker: Denies Alcohol: Denies Drugs: denies Recent Travel/Sick Contacts: Denies: Recent travel, Recent sick contacts Psychosocial History: No pertinent psych hx Review of Symptoms Constitutional: Reports: Fatigue, Lethargy, Denies: Chills, Fever, Night Sweats Eyes: Denies: Pain, Vision change ENT: Denies: Head Aches, Ear Pain, Dysphagia Skin: Denies: Rash, Lesions, Breakdown Pulmonary: Reports: Dyspnea, Cough Cardiovascular: Denies: Chest Pain, Palpitations, Orthopnea, Paroxysmal Noc. Dyspnea, Lt Headedness Gastrointestinal: Denies: Nausea, Vomiting, Abdominal Pain, Diarrhea Genitourinary: Denies: Dysuria, Frequency, Incontinence, Retention Hematologic: Denies: Bruising, Bleeding Excessively Musculoskeletal: Denies: Neck Pain, Back Pain, Joint Pain, Muscle Pain, Spasms Neurological: Denies: Weakness, Numbness, Change in speech, Confusion Psych: Reports: Mood Normal, Denies: Depression, Memory Issues Physical Examination General Exam: Positive: Alert, Moderate Distress Eye Exam: Positive: PERRLA, Conjunctiva & lids normal, EOMI, Negative: Sclera icteric ENT Exam: Positive: Atraumatic, Mucous membr. moist/pink, Pharynx Normal Neck Exam: Positive: Supple, Negative: JVD, thyromegaly Chest Exam: Positive: Rhonchi, Diminished Heart Exam: Positive: Rate Normal, Regular Rhythm, Normal S1, Normal S2, Negative: Murmurs, Rubs Telemetry: Positive: No significant arrhythmia Abdomen Exam: Positive: Normal bowel sounds, Soft, Negative: Tenderness, Hepatospenomegaly Extremity Exam: Positive: Normal pulses, Negative: Clubbing, Cyanosis, Edema Skin Exam: Positive: Nl turgor and temperature, Negative: Breakdown, Lesion Neuro Exam: Positive: Normal Speech, Cranial Nerves 3-12 NL Psych Exam: Positive: Mental status NL, Mood NL, Oriented x 3 Vital Signs Vital Signs Date Time Temp Pulse Resp B/P (MAP) Pulse Ox O2 Delivery O2 Flow Rate FiO2 11/24/16 04:00 97.4 88 16 143/94 (110) 97 Room Air Laboratory Data Labs 24H Laboratory Tests 2 11/23/16 17:10: Immature Granulocyte % (Auto) 0.8H, White Blood Count 7.7, Red Blood Count 4.38 , Hemoglobin 12.0L, Hematocrit 37.6L, Mean Corpuscular Volume 85.8, Mean Corpuscular Hemoglobin 27.4, Mean Corpuscular Hemoglobin Concent 31.9L, Red Cell Distribution Width 17.8H, Platelet Count 204, Neutrophils (%) (Auto) 70.0H , Lymphocytes (%) (Auto) 10.8L, Monocytes (%) (Auto) 12.9H, Eosinophils (%) ( Auto) 4.5H, Basophils (%) (Auto) 1.0, Neutrophils # (Auto) 5.4, Lymphocytes # ( Auto) 0.8L, Monocytes # (Auto) 1.0H, Eosinophils # (Auto) 0.4, Basophils # (Auto ) 0.1, Immature Granulocyte # (Auto) 0.1H, Nucleated Red Blood Cells % (auto) 0.0, Anion Gap 11, Glomerular Filtration Rate 8.3L, Calcium Level 9.0, Aspartate Amino Transf (AST/SGOT) 13L, Alanine Aminotransferase (ALT/SGPT) 17, Alkaline Phosphatase 137H, Total Bilirubin 1.5H, Direct Bilirubin 0.8H, Total Protein 7.3, Albumin 3.2, Albumin/Globulin Ratio 0.78L, Lipase 199 CBC/BMP Laboratory Tests 11/23/16 17:10 Red Blood Count 4.38, Mean Corpuscular Volume 85.8, Mean Corpuscular Hemoglobin 27.4, Mean Corpuscular Hemoglobin Concent 31.9 L, Red Cell Distribution Width 17.8 H, Neutrophils (%) (Auto) 70.0 H, Lymphocytes (%) (Auto) 10.8 L, Monocytes (%) (Auto) 12.9 H, Eosinophils (%) (Auto) 4.5 H, Basophils (%) (Auto) 1.0, Neutrophils # (Auto) 5.4, Lymphocytes # (Auto) 0.8 L, Monocytes # (Auto) 1.0 H, Eosinophils # (Auto) 0.4, Basophils # (Auto) 0.1 Assessment/Plan 61-year-old male, history of CAD status post CABG, CHF status post AICD brain aneurysm status post clipping ESRD on hemodialysis Monday, Monday, Monday, presented to the emergency room after being noncompliant for hemodialysis for over a week. Plan / VTE VTE Prophylaxis Ordered?: Yes Plan Plan ESRD on hemodialysis BUN 70, creatinine 7.18, nephrology will be consulted for started hemodialysis. Also, social welfare research worker need to be involved to manage his hemodialysis after discharge. 10. CHF. Get echocardiogram. This indigestion status post AICD. Continue Coreg, Aldactone. Diabetes mellitus. Continue with Lantus 40 units twice a day and sliding scale insulin. Check A1c. CAD. Patient is a status post CABG. Cardiac, renal, diabetic diet. DVT prophylaxis heparin subcutaneous Disposition Patient will likely be discharged home with home services or subacute rehabilitation because patient has missed hemodialysis 2 times in past 2 weeks and land up in emergency room. Both stents for being noncompliant IVF: Discontinue Diet: Continue Current Activity: Continue Current Therapy: PT, OT Medications: Replete Electrolytes IV Diagnostics: Repeat Labs in AM, TTE Anticipated Discharge: Home With Services, Sub Acute Rehab BERNABE PINEDA MD Nov 24, 2016 08:24
[2016-11-24] MEDS ORDERED: DEXTROSE 50% 50 ML SYRINGE IV PRN (08:45)
[2016-11-24] MEDS ORDERED: GLUCAGON FOR INJ 1 MG VIAL (J1610) SC PRN (08:45)
[2016-11-24] MEDS: HumaLOG INSULIN (NovoLOG) PER UNIT SC SCH ×3 (09:25→18:45)
[2016-11-24] MEDS: SPIRONOLACTONE 25 MG TAB PO SCH (09:25)
[2016-11-24] MEDS: CARVedilol 3.125 MG TAB PO SCH ×2 (09:25→21:52)
[2016-11-24] MEDS: LEVEMIR (INSULIN DETEMIR) 1 UNITS/0.01ML SC SCH ×2 (09:25→21:00)
[2016-11-24] MEDS: SERTRALINE HCL 25 MG TABLET PO SCH (09:28)
[2016-11-24 10:55] LABS: MEAN CORPUSCULAR HEMOGLOBIN 27.6 pg (27.0-33.0); MEAN CORPUSCULAR HGB CONC 31.8 g/dl (32.0-36.5); MEAN CORPUSCULAR VOLUME 86.6 fl (80.0-96.0); RED CELL DISTRIBUTION WIDTH 17.9 % (11.5-14.5); WHITE BLOOD COUNT 6.2 10^3/uL (4.0-10.0)
[2016-11-24] MEDS ORDERED: HEPARIN 1,000 UNITS/ML 10ML VIAL (FOR RADIOLOGY& DIALYSIS ONLY) IV ONE (11:15)
[2016-11-24 11:25] LABS: ALBUMIN 3.1 GM/DL (3.2-5.2); ALBUMIN/GLOBULIN RATIO 0.86 (1.00-1.93); BILIRUBIN,TOTAL 1.6 MG/DL (0.2-1.0); CALCIUM LEVEL 8.7 MG/DL (8.8-10.2); GLOMERULAR FILTRATION RATE 8.5 (>49); MAGNESIUM LEVEL 1.9 MG/DL (1.8-2.4); PHOSPHORUS LEVEL 5.6 MG/DL (2.5-4.9); POTASSIUM SERUM 4.5 MEQ/L (3.5-5.1); TOTAL PROTEIN 6.7 GM/DL (6.4-8.2)
[2016-11-24 12:00] VITALS: BP 114/76
[2016-11-24 18:35] VITALS: BP 110/74
[2016-11-24 20:00] VITALS: BP 112/69
--- NOTE | 2016-11-24 22:41 | CR ---
DATE OF CONSULTATION: 11/24/2016 REQUESTING PHYSICIAN: Dr. Vincent Azul REASON FOR CONSULTATION: Multiple missed hemodialysis treatments. CHIEF COMPLAINT: Missed hemodialysis treatments. HISTORY OF THE PRESENT ILLNESS: Mr. Luis Miguel Weber is a 61-year-old male with a past medical history of end-stage renal disease, on hemodialysis Monday, Monday, Monday. The patient is generally noncompliant with his hemodialysis regimen. He usually skips multiple sessions of hemodialysis. He missed hemodialysis for 1 week and then presented to his hemodialysis unit yesterday for treatment. However, he was significantly nauseated and was vomiting and unable to go into the facility on his own and subsequently sent to the emergency room. The patient admits to frequent noncompliance with hemodialysis. He is unable to give a reason why he misses hemodialysis sessions repeatedly. He has had multiple prior inpatient admissions for the same issues. He was seen this morning at the bedside pending dialysis treatment later today. He has no acute complaints at present. He notes fatigue, dyspnea on exertion and nausea. PAST MEDICAL HISTORY: End-stage renal disease, on hemodialysis Monday, Monday, Monday. History of congestive heart failure with reduced ejection fraction. Status post automatic implantable cardioverter defibrillator (AICD). History of type 2 diabetes. Hypertension. Gastroesophageal reflux disease (GERD). Morbid obesity. Dyslipidemia. History of coronary artery disease. History of noncompliance with hemodialysis. PAST SURGICAL HISTORY: Coronary artery bypass graft. History of arteriovenous fistula placement. Status post AICD. History of brain aneurysm surgery in the past. ALLERGIES: EGGS. No known drug allergies. FAMILY HISTORY: No significant family history of end-stage kidney disease. SOCIAL HISTORY: The patient lives with his cousin who is also hemodialysis dependent. He denies any history of alcohol abuse or illicit drug abuse. REVIEW OF SYSTEMS: The patient denies fevers, chills, abdominal pain, diarrhea. He complains of generalized fatigue and weakness, and nausea, and shortness of breath, and dyspnea on exertion. VITAL SIGNS: Temperature 97.6, pulse 68, respiratory rate 18, blood pressure 114/76, saturating 100% on room air. INTAKE/OUTPUT: Hemodialysis today removed 4000 mL ultrafiltration. PHYSICAL EXAMINATION: Patient is awake, alert, oriented, in no distress. He is seen eating at the bedside. HEAD AND NECK: Extraocular muscles are intact. Mucous membranes are moist. Cardiovascular: s1, s2, AICD L chest wall. + pitting edema in peripheries CHEST: Decreased breath sounds at bilateral bases seen on room air. No overt crackle. ABDOMEN: Soft, obese, nontender. + bowel sounds SKIN: No rashes. Normal turgor and temperature. NEUROLOGIC: Normal speech, appropriately interactive and conversational. PSYCHIATRIC EXAM: Appropriate mood and affect. EXTREMITIES: Fistula with thrill and bruit in right forearm. Lower extremity with 1+ edema. LABORATORY DATA: White count 6.2, hemoglobin 11.3, platelets 158. Sodium 141, potassium 4.5, bicarbonate 24, BUN 72, after more than one week missed hemodialysis treatment, phosphorus 5.6, magnesium 1.9. IMAGING: Chest x-ray with pulmonary vascular congestion. INPATIENT MEDICATIONS: - carvedilol 3.125 mg by mouth twice a day - Zoloft 25 mg by mouth daily - Aldactone 25 mg by mouth daily ASSESSMENT AND PLAN: 1. End-stage renal disease, on hemodialysis with history of noncompliance and serial hemodialysis treatments being missed. The patient was dialyzed today and had 4000 mL ultrafiltration. He will be dialyzed again tomorrow for further volume removal. He does have some residual renal function, which is why he is able to go more than a week without a treatment without severe adverse event. 2. Coronary artery disease, status post coronary artery bypass graft and congestive heart failure. The patient is on carvedilol and on his last admission , he was started on Aldactone 25 mg daily. Given that he does have residual renal function and has a history of general noncompliance with hemodialysis, he is at risk of hyperkalemia from Aldactone. However, the patient tells me today that he is not taking Aldactone at home, and this is probably why his predialysis potassium was normal. 3. Diabetes. On insulin sliding scale and Lantus. 4. Hypertension. Currently well controlled. 5. Anemia of chronic kidney disease. Hemoglobin remains slightly above target. Aranesp currently on hold. Thank you for involving us in the care of this patient. We will be happy to follow this patient along with you. [facility] CENTEROlimpia
[2016-11-25] VITALS: BP 102/67
[2016-11-25] MEDS: GLUCOSE 4 GM CHEW TABLET PO PRN ×2 (00:18→00:28)
[2016-11-25 04:00] VITALS: BP 101/65
--- NOTE | 2016-11-25 06:00 | ECGEPIP ---
Stationary ECG Study [facility] - ED Test Date: 2016-11-23 Pat Name: YADIEL WAHL Department: Room: [place] [address] Gender: M Ruby Engineer: pilar : [id number] Requested By: AUSTIN Chi Order Number: [id number] Reading MD: Paresh Christian Measurements Intervals [place] Rate: 89 P: 88 MD: 241 QRS: -37 QRSD: 110 T: 127 QT: 385 QTc: 469 Interpretive Statements SINUS RHYTHM WITH FIRST DEGREE AV BLOCK WITH OCCASIONAL SUPRAVENTRICULAR PREMATURE COMPLEXES LOW QRS VOLTAGE IN EXTREMITY LEADS POSSIBLE ANTERIOR MYOCARDIAL INFARCTION, OF INDETERMINATE AGE INFERIOR MYOCARDIAL INFARCTION, PROBABLY OLD SIMILAR TO PRIOR ON SAME DATE Electronically Signed On 11-25-2016 5:59:41 EDT by Paresh Christian
[2016-11-25] MEDS: HumaLOG INSULIN (NovoLOG) PER UNIT SC SCH ×3 (06:56→17:30)
[2016-11-25 08:00] VITALS: BP 114/77
[2016-11-25] MEDS: SPIRONOLACTONE 25 MG TAB PO SCH (08:02)
[2016-11-25] MEDS: SERTRALINE HCL 25 MG TABLET PO SCH (08:02)
[2016-11-25] MEDS: LEVEMIR (INSULIN DETEMIR) 1 UNITS/0.01ML SC SCH (09:00)
[2016-11-25] MEDS: CARVedilol 3.125 MG TAB PO SCH ×2 (09:00→21:13)
[2016-11-25 11:17] LABS: HEPATITIS B SURFACE ANTIBODY POSITIVE (POSITIVE)
[2016-11-25 12:00] VITALS: BP 123/87
[2016-11-25] MEDS ORDERED: HEPARIN 1,000 UNITS/ML 10ML VIAL (FOR RADIOLOGY& DIALYSIS ONLY) IV ONE (12:00)
--- NOTE | 2016-11-25 14:22 | IPNPDOC ---
Text Note Date of Service The patient was seen on 11/25/16. NOTE Subjective: Patient feels well. Denies any complaints. States he misses dialysis because he is unable to get into his car and drive to dialysis. Objective: Vitals: (see below) General: No acute distress, laying comfortably in bed. HEENT: Moist mucous membranes. Neck: No JVD or lymphadenopathy Cardiac: RRR, No murmurs Pulm: Crackles at the bases bilaterally. No wheezing, rhonchi Abd: NT/ND + BS. Obese Ext: Trace edema bilateral lower extremities. No cyanosis Labs (see below) Images: Assessment/Plan 1. End-stage renal disease on hemodialysis- patient has been noncompliant with results of multiple readmissions. He has been seen by psychiatry and his prior admission. He states that he was unable to go to dialysis because he was unable to drive there however case management had previously arranged for him to be picked up and he had refused in the past. Nephrology on board. Patient getting dialysis while inpatient. Will likely be readmitted in the near future given his noncompliance. 2. Insulin-dependent diabetes mellitus- patient was hypoglycemic this morning, and his Levemir dose has been decreased. 3. History of CAD status post CABG, stable continue home meds 4. History of cardiomyopathy status post AICD- continue home meds 5. Hypertension- continue meds 6. GERD- continue home meds 7. Morbid obesity 8. Hyperlipidemia- continue meds DVT prophy: Subcutaneous heparin Poor prognosis given his end-stage renal disease as well as his noncompliance with hemodialysis. VS,Fishbone, I+O VS, Fishbone, I+O Vital Signs Date Time Temp Pulse Resp B/P (MAP) Pulse Ox O2 Delivery O2 Flow Rate FiO2 11/25/16 12:00 97.4 68 21 123/87 (99) 100 Room Air I&O- Last 24 Hours up to 6 AM 11/26/16 05:59 Intake Total 0 ml Balance 0 ml THADDEUS SHI MD Nov 25, 2016 14:22
[2016-11-25 17:00] VITALS: BP 120/76
[2016-11-25] MEDS ORDERED: ONDANSETRON 4MG/2ML VIAL (J2405) IV PRN (18:45)
[2016-11-25] MEDS ORDERED: LEVEMIR (INSULIN DETEMIR) 1 UNITS/0.01ML SC SCH (21:00)
[2016-11-25] MEDS: HEPARIN SOD (PORCINE) 5000 UNITS/ML VIAL SQ SCH (21:13)
[2016-11-25 22:00] VITALS: BP 132/87
--- NOTE | 2016-11-25 22:56 | IPN ---
DATE: 11/25/2016 SUBJECTIVE: The patient is seen this morning pre-dialysis and on dialysis. He has no complaints. He gives short one word answers the questions this morning. There were no acute overnight events reported. REVIEW OF SYSTEMS: Limited as patient gives very short answers today, but negative for chest pain, palpitations, shortness of breath, nausea, vomiting. Positive for lower extremity edema. VITAL SIGNS: Temperature 97.4, pulse 68, respiratory rate 21, blood pressure 123/87, saturating 100% on room air. Intake and output: Dialysis yesterday removed 4000 mL. Dialysis today removed 4000 mL. Weight on the bed scale 114.6 kg. PHYSICAL EXAMINATION: General: The patient is awake, alert, no acute distress. He is seen eating. Head and neck: Extraocular muscles are intact. Mucous membranes are moist. Cardiovascular: s1,s2, 2+ radial pulse. decreased peripheral edema. Chest: There is decreased breath sounds at the bilateral bases. He is on room air. He is in no respiratory distress. Abdomen: Soft, obese, nontender bowel sounds present. Neurologic: No focal deficits. Psychiatric: Withdrawn today. Extremities: 1+ edema in the lower extremities. Fistula in forearm with thrill and bruit. LABS: Glucose 274. There are otherwise no new labs today. INPATIENT MEDICATIONS: No changes in the past 24 hours. PLAN: 1. End-stage renal disease, on hemodialysis with history of noncompliance and skipping serial hemodialysis treatment. The patient is relatively new to hemodialysis and has been on for less than a year. He still have some residual renal function, hence he has been able to get away with skipping three to four dialysis treatments without becoming gravely ill. He is counseled on the adverse affects of missing hemodialysis has on his general health. He is having serial dialysis here. He had 4000 mL removed yesterday and a further 4000 mL ultrafiltration removed today. 2. Coronary artery disease, status post coronary artery bypass graft (CABG), congestive heart failure admits to noncompliance with prescribed medications. Volume overloaded at this time, receiving serial hemodialysis treatments with ultrafiltration. Given his history of general noncompliance with dialysis and with medications, he is likely not a good candidate for cardioprotective medications like angiotensin-converting enzyme (REUBEN), angiotensin II receptor blockers (ARB) and aldactone given risk of predialysis hyperkalemia. For now he continues on aldactone and we will continue to monitor his potassium as an outpatient. 3. Diabetes. His insulin was adjusted today. 4. Anemia of chronic kidney disease. Hemoglobin slightly above target. Aranesp currently on hold. MTDD
[2016-11-26] VITALS (27 sets, daily range): BP systolic 97–146; BP diastolic 62–85
[2016-11-26] MEDS: HEPARIN SOD (PORCINE) 5000 UNITS/ML VIAL SQ SCH (05:14)
[2016-11-26] MEDS: HumaLOG INSULIN (NovoLOG) PER UNIT SC SCH ×3 (07:30→17:30)
[2016-11-26] MEDS ORDERED: ASPIRIN 300 MG SUPP PR ONE (08:15)
[2016-11-26 08:36] LABS: MEAN CORPUSCULAR HEMOGLOBIN 27.3 pg (27.0-33.0); MEAN CORPUSCULAR HGB CONC 32.1 g/dl (32.0-36.5); MEAN CORPUSCULAR VOLUME 84.9 fl (80.0-96.0); RED CELL DISTRIBUTION WIDTH 17.9 % (11.5-14.5); WHITE BLOOD COUNT 8.6 10^3/uL (4.0-10.0)
[2016-11-26 08:54] LABS: CALCIUM LEVEL 8.6 MG/DL (8.8-10.2); CREATININE FOR GFR 4.11 MG/DL (0.70-1.30); GLOMERULAR FILTRATION RATE 15.7 (>49); POTASSIUM SERUM 4.3 MEQ/L (3.5-5.1)
[2016-11-26] MEDS: CARVedilol 3.125 MG TAB PO SCH ×2 (09:00→20:22)
[2016-11-26] MEDS: SPIRONOLACTONE 25 MG TAB PO SCH (09:00)
[2016-11-26] MEDS: SERTRALINE HCL 25 MG TABLET PO SCH (09:00)
[2016-11-26 09:02] LABS: ABG BASE EXCESS 5.3 (-2.0-2.0); ABG HCO3 27.7 MEQ/L (22.0-26.0); ABG PARTIAL PRESSURE CO2 33.5 mmHg (35.0-45.0); ABG PARTIAL PRESSURE O2 69.4 mmHg (75.0-100.0); ABG STANDARD HCO3 29.2 MEQ/L (22.0-26.0); ABG TOTAL CO2 28.8 MEQ/L (23.0-31.0); ABG pH (ARTERIAL) 7.536 UNITS (7.350-7.450)
[2016-11-26 09:30] LABS: INR 1.24
--- NOTE | 2016-11-26 09:43 | REP ---
REASON: Aphagia and left-sided weakness. COMPARISON: None. There is spray artifact arising from what is most probably a surgical clip due to aneurysmal repair. A subtle area of decreased density is seen in the centrum semiovale on the left near the convexity. There is no evidence of an acute intraparenchymal hemorrhage. There is no shift of the midline structures. The ventricles and sulci appear appropriate for the age of the patient. IMPRESSION: Area of decreased density seen in the left frontoparietal region as described above. Without a prior for comparison, I cannot say whether or not this represents an acute finding or chronic change. The patient has had brain surgery; there are likely priors somewhere and they should be obtained for comparison. There is no evidence of an acute intracranial hemorrhage. There is no mass effect. Signed by Curtis Gillespie DO 11/26/2016 09:44 A
[2016-11-26] MEDS ORDERED: ALTEPLASE 100MG INJ (J2997) IV STA (09:49)
[2016-11-26] MEDS ORDERED: ALTEPLASE RECOMBINANT 81 MG in APPROPRIATE DILUENT 1 EA IV ONE (10:00)
--- NOTE | 2016-11-26 15:03 | IPNPDOC ---
Text Note Date of Service The patient was seen on 11/26/16. NOTE Subjective: Patient developed severe dysarthria, aphasia, left-sided hemiparesis this a.m. at 8 AM. Last seen normal at 7:15 AM. NIH was [address] head negative for bleed. I have spoken to the next of kin who is the patient's cousin Olga, and she advised me that the patient would have wanted to be a DNR/DNI. He has missed multiple dialysis sessions because he did not want to continue with aggressive measures. She was unsure whether the patient would want to have TPA, and did not want to make that decision. I have discussed case with Dr. Pacheco with recommendations for TPA. The patient received at this morning. Objective: Vitals: (see below) General: No acute distress, laying comfortably in bed. HEENT: Moist mucous membranes. Neck: No JVD or lymphadenopathy Cardiac: RRR, No murmurs Pulm: Crackles at the bases bilaterally. No wheezing, rhonchi Abd: NT/ND + BS. Obese Ext: Trace edema bilateral lower extremities. No cyanosis Neuro: Strength 5/5 left upper and lower extremity. 2/5 RUE, 3/5 RLE CN 2-12 intact, with the exception of severe dysarthria, dysphasia, and expressive aphasia Negative pronator drift on the left Negative Babinki NIH this morning 10 Labs (see below) Images: CT head 11/26/16 There is spray artifact arising from what is most probably a surgical clip due to aneurysmal repair. A subtle area of decreased density is seen in the centrum semiovale on the left near the convexity. There is no evidence of an acute intraparenchymal hemorrhage. There is no shift of the midline structures. The ventricles and sulci appear appropriate for the age of the patient. IMPRESSION: Area of decreased density seen in the left frontoparietal region as described above. Without a prior for comparison, I cannot say whether or not this represents an acute finding or chronic change. The patient has had brain surgery; there are likely priors somewhere and they should be obtained for comparison. There is no evidence of an acute intracranial hemorrhage. There is no mass effect. Assessment/Plan 1. Acute CVA with Left sided hemiparesis, severe dysarthria and severe aphasia this morning at 8 AM, last seen normal at 7:[address] head negative for bleed. INR 1.2. Hemoglobin stable. I did discuss with Dr. Pacheco, recommended TPA. Patient received at this morning, and has some improvement of his hemiparesis, although he still has some moderate dysarthria. Received aspirin this a.m. Carotid ultrasound. MRI/MRA brain pending. Neuro checks. Continue to monitor in the ICU. Appreciate neurology recommendations. 2. 9 beats nonsustained V. tach- asymptomatic. K greater than 4, MG greater than 2. Patient receiving his beta joel this morning as he had significant dysphagia. Will increase Coreg to 6.25 and administer once patient is able to tolerate by mouth. He does have an AICD for his systolic heart failure. Echocardiogram pending. His AICD did not go off. 3. History of CAD status post CABG, stable continue home meds 4. History of cardiomyopathy status post AICD- continue home meds 5. Hypertension- continue meds 6. GERD- continue home meds 7. Morbid obesity 8. Hyperlipidemia- continue meds 9. End-stage renal disease on hemodialysis- patient has been noncompliant with results of multiple readmissions. He has been seen by psychiatry and his prior admission. He states that he was unable to go to dialysis because he was unable to drive there however case management had previously arranged for him to be picked up and he had refused in the past. Nephrology on board. Patient getting dialysis while inpatient. Will likely be readmitted in the near future given his noncompliance. 10. Insulin-dependent diabetes mellitus- patient was hypoglycemic this morning, levemir d/c for now. SSI. DVT prophy: Subcutaneous heparin Poor prognosis. The next of kin, Olga , can be reached at [phone]. Initially it was unclear with the next of kin was however the patient outpatient hemodialysis unit confirm that it was Olga. VS,Carlos, I+O VSCarlos, I+O Laboratory Tests 11/26/16 08:12 Red Blood Count 4.51, Mean Corpuscular Volume 84.9, Mean Corpuscular Hemoglobin 27.3, Mean Corpuscular Hemoglobin Concent 32.1, Red Cell Distribution Width 17.9 H, Calcium Level 8.6 L, Total Creatine Kinase 78 Vital Signs Date Time Temp Pulse Resp B/P (MAP) Pulse Ox O2 Delivery O2 Flow Rate FiO2 11/26/16 14:00 97.8 69 19 102/66 (78) 98 Nasal Cannula 2.0 I&O- Last 24 Hours up to 6 AM 11/27/16 06:00 Intake Total 0 ml Output Total 100 ml Balance -100 ml THADDEUS SHI MD Nov 26, 2016 15:03
--- NOTE | 2016-11-26 15:14 | ECHO ---
DATE OF PROCEDURE: 11/26/2016 REFERRING PHYSICIAN: Dr. Nagi Sutton REASON FOR ECHOCARDIOGRAM: CVA. 2D MEASUREMENT: IVS - 1.1 cm LV - 5.7 cm LVPW - 1.1 cm LA - 4.6 cm Aorta - 3.3 cm IVC - 2.3 cm DOPPLER MEASUREMENTS: Peak velocity across the aortic valve - 1.1 m/s Peak velocity across the LVOT - 0.58 m/s Mitral E - 0.90, Marianela A - 0.26 with a ratio of 3.5 Maximum tricuspid valve velocity - 3.0 m/s 2D COMMENTS: 1. Mildly increased left ventricular size with normal left ventricular wall thickness but a severe depressed global left ventricular systolic function. The estimated left ventricular systolic ejection fraction is 20%. 2. Mildly enlarged left atrium. The right atrium was noted to be mildly enlarged. Normal right ventricle. 3. The atrial septum appeared to be normal without evidence of defect or shunt. 4. Normal aortic root. 5. Trace pericardial effusion noted, no evidence of cardiac tamponade. 6. Mildly calcified aortic valve with normal leaflet excursion. Minimally calcified mitral annulus with normal anterior mitral valve leaflet motion. Normal tricuspid valve. The pulmonic valve appeared to be normal in limited views. The proximal pulmonary artery branches were not well visualized. 7. The inferior vena cava was mildly enlarged at 2.3 cm, central venous pressure mildly elevated. 8. Pacemaker wire artifact noted. DOPPLER: It detects moderate mitral regurgitation and moderate tricuspid regurgitation. The calculated pulmonary artery systolic pressure varies between 40-50 mmHg. A restrictive pattern was noted across the mitral valve leaflets, a poor cardiac prognostic, particularly if it is irreversible with treatment. IMPRESSION: 1. Severe left ventricular systolic dysfunction with diffuse hypokinesis and a mildly enlarged left ventricle. A restrictive mitral inflow pattern was noted , can be a poor cardiac prognostic marker. 2. Aortic valve sclerosis without stenosis or aortic regurgitation. 3. Mitral annulus calcification with mildly enlarged left atrium and moderate mitral regurgitation. 4. Moderate tricuspid regurgitation with moderate pulmonary hypertension. The right atrium also appeared to be mildly enlarged. 5. There are findings consistent with elevated central venous pressure. MTDD
[2016-11-26] MEDS ORDERED: LEVEMIR (INSULIN DETEMIR) 1 UNITS/0.01ML SC SCH (21:00)
--- NOTE | 2016-11-26 23:25 | ECGEPIP ---
Stationary ECG Study [facility] Test Date: 2016-11-26 Pat Name: YADIEL WAHL Department: Room: [place] [address] Gender: M [employer] Agent: JAMES : 1955 Requested By: THADDEUS SHI Order Number: [id number] Reading MD: Kike Russell Measurements Intervals [place] Rate: 75 P: 87 NC: 211 QRS: -52 QRSD: 101 T: 150 QT: 404 QTc: 452 Interpretive Statements SINUS RHYTHM WITH FIRST DEGREE AV BLOCK LOW QRS VOLTAGE IN EXTREMITY LEADS POSSIBLE ANTERIOR MYOCARDIAL INFARCTION, PROBABLY OLD POSSIBLE INFERIOR MYOCARDIAL INFARCTION, PROBABLY OLD COMPARED TO THE LAST 3 TRACINGS IN THE SYSTEM, NO SIGNIFICANT CHANGES Electronically Signed On 11-26-2016 23:25:15 EDT by Kike Russell
[2016-11-27] VITALS (7 sets, daily range): BP systolic 100–119; BP diastolic 61–81
[2016-11-27] MEDS: HumaLOG INSULIN (NovoLOG) PER UNIT SC SCH ×3 (07:22→17:13)
[2016-11-27] MEDS ORDERED: D5W 1,000 ML IV SCH (07:30)
[2016-11-27] MEDS: SPIRONOLACTONE 25 MG TAB PO SCH (08:21)
[2016-11-27] MEDS: CARVedilol 3.125 MG TAB PO SCH ×2 (08:22→21:00)
[2016-11-27] MEDS: SERTRALINE HCL 25 MG TABLET PO SCH (08:22)
--- NOTE | 2016-11-27 10:08 | IPNPDOC ---
Text Note Date of Service The patient was seen on 11/27/16. NOTE Subjective: Feels well today. Once to advance his diet. His deficits have resolved with the exception of mild dysarthria. Objective: Vitals: (see below) General: No acute distress, laying comfortably in bed. HEENT: Moist mucous membranes. Neck: No JVD or lymphadenopathy Cardiac: RRR, No murmurs Pulm: Crackles at the bases bilaterally. No wheezing, rhonchi Abd: NT/ND + BS. Obese Ext: Trace edema bilateral lower extremities. No cyanosis Neuro: Strength 5/5 bilateral upper extremities and lower extremities. CN 2-12 intact, with the exception of mild dysarthria. His dysphasia and expressive aphasia have resolved. Negative pronator drift on the left Negative Babinki NIH this morning 1 Labs (see below) Images: CT head 11/26/16 There is spray artifact arising from what is most probably a surgical clip due to aneurysmal repair. A subtle area of decreased density is seen in the centrum semiovale on the left near the convexity. There is no evidence of an acute intraparenchymal hemorrhage. There is no shift of the midline structures. The ventricles and sulci appear appropriate for the age of the patient. IMPRESSION: Area of decreased density seen in the left frontoparietal region as described above. Without a prior for comparison, I cannot say whether or not this represents an acute finding or chronic change. The patient has had brain surgery; there are likely priors somewhere and they should be obtained for comparison. There is no evidence of an acute intracranial hemorrhage. There is no mass effect. Echocardiogram 11/26/16 IMPRESSION: 1. Severe left ventricular systolic dysfunction with diffuse hypokinesis and mildly enlarged left ventricle. A restrictive mitral inflow pattern was noted, can be a poor cardiac prognostic marker. 2. Aortic valve sclerosis without stenosis or aortic regurgitation. 3. Mitral annulus calcification with mildly enlarged left atrium and moderate mitral regurgitation. 4. Moderate tricuspid regurgitation with moderate pulmonary hypertension. The right atrium also verito yesterday eared to be mildly enlarged. Assessment/Plan 1. Acute CVA with Left sided hemiparesis, severe dysarthria and severe aphasia 11/26/16. Status post TPA with significant resolution of his symptoms with the exception of mild dysarthria. Carotid ultrasound. MRI/MRA brain pending. Neuro checks. Continue to monitor in the ICU. Appreciate neurology recommendations. 2. Nonsustained V. tach- asymptomatic. K greater than 4, MG greater than 2. Patient receiving his beta joel this morning as he had significant dysphagia. Will restart Coreg as patient is tolerating by mouth. Echocardiogram with EF of 20%. He does have an AICD for his systolic heart failure. Echocardiogram (see above). 3. History of CAD status post CABG, stable continue home meds 4. History of cardiomyopathy status post AICD- continue home meds 5. Hypertension- continue meds 6. GERD- continue home meds 7. Morbid obesity 8. Hyperlipidemia- continue meds 9. End-stage renal disease on hemodialysis- patient has been noncompliant with results of multiple readmissions. He has been seen by psychiatry and his prior admission. He states that he was unable to go to dialysis because he was unable to drive there however case management had previously arranged for him to be picked up and he had refused in the past. Nephrology on board. Patient getting dialysis while inpatient. Will likely be readmitted in the near future given his noncompliance. 10. Insulin-dependent diabetes mellitus- Levemir d/c for now. SSI. DVT prophy: Subcutaneous heparin Poor prognosis. The next of kin, Olga , can be reached at [phone]. Initially it was unclear with the next of kin was however the patient outpatient hemodialysis unit confirm that it was Olga. VS,Fishbone, I+O VS, Fishbone, I+O Vital Signs Date Time Temp Pulse Resp B/P (MAP) Pulse Ox O2 Delivery O2 Flow Rate FiO2 11/27/16 08:22 77 123/80 11/27/16 08:00 97.6 18 100 Nasal Cannula 2.0 I&O- Last 24 Hours up to 6 AM 11/28/16 06:00 Intake Total 0 ml Output Total 0 ml Balance 0 ml THADDEUS SHI MD Nov 27, 2016 10:08
--- NOTE | 2016-11-27 11:38 | IPN ---
DATE OF SERVICE: 11/26/2016 SUBJECTIVE: The patient is seen this morning in the intensive care unit. He developed stroke symptoms at 8 a.m. this morning with left-sided hemiparesis and severe dysarthria. CT scan was negative for intracranial hemorrhage. The patient received tissue plasminogen activator (tPA) with improvement in his hemiparesis. When I saw him this morning at 11 a.m, he was dysarthric as compared to prior. Review of his blood pressures in the past 24 hours does not reveal any episodes of documented hypotension. REVIEW OF SYSTEMS: Limited due to clinical condition, but positive for dysarthria, left-sided weakness and nausea. Negative for chest pain, shortness of breath, palpitations. VITAL SIGNS: Temperature 98.2, pulse 73, respiratory rate 20, blood pressure 124/85, saturating 94% on room air. PHYSICAL EXAMINATION: Patient seen in the intensive care unit (ICU) in no acute distress lying comfortably in bed. He is having an echocardiogram at present. HEENT: Moist mucous membranes. Neck is supple. No jugular venous distention (JVD). His smile is symmetric. He is able to raise his eyebrows symmetrically. His speech is moderately dysarthric. CARDIAC: Regular rate and rhythm. No murmurs. 2+ radial pulse. 1+ pitting edema in the lower extremities. PULMONARY: Anterior auscultation only. Symmetric air entry. No wheeze. ABDOMEN: Soft, nontender, obese. EXTREMITIES: Edema in the lower extremities, left more than right. NEUROLOGIC: Speech is dysarthric. Expressive aphasia. He follows commands and moves all four extremities. LABORATORIES: White count 8.6, hemoglobin 12.3, platelets 199. Sodium 139, potassium 4.3, bicarbonate 30, calcium 8.6, magnesium 2.0, glucose 72. Head CT this morning: Area of decreased density in the left frontoparietal region, age indeterminate. INPATIENT MEDICATIONS: The patient received tPA this morning and aspirin 300 mg times one. His carvedilol dose was increased per the primary team and his insulin was adjusted by them as well. Otherwise, no changes in the past 24 hours. ASSESSMENT AND PLAN: 1. Acute ischemic CVA with aphasia, dysarthria and hemiparesis status post tissue plasminogen activator (tPA) and aspirin. Patient had an echocardiogram. Report is pending. MRI/MRA brain pending. Carotid ultrasound pending. Neurology evaluation is pending. He remains in the intensive care unit at this time. 2. Hypertension. The patient's blood pressure is currently well controlled and would avoid hypotension or borderline hypotension during his evolving acute ischemic stroke. His carvedilol dose was increased per the primary team after the patient had a run of nonsustained ventricular tachycardia (V-TACH). 3. End-stage renal disease on hemodialysis, noncompliant in general with multiple skipped sessions. The patient's next hemodialysis will be on Monday, 11/28. 4. History of cardiomyopathy status post automatic implantable cardioverter-defibrillator (AICD). The patient admits to noncompliance at home with prescribed medications. 5. Given the patient's general noncompliance, his overall prognosis is poor. MTDD
--- NOTE | 2016-11-27 11:39 | REP ---
REASON: Comparison, rule out hemorrhage. Prior exam earlier today reviewed. There is no change from earlier today. There is no acute intracranial hemorrhagic or nonhemorrhagic event. There is no mass effect. Once again, there is spray artifact seen arising from previous aneurysmal clipping. IMPRESSION: No change from earlier today. Signed by Curtis Gillespie DO 11/27/2016 09:44 A
--- NOTE | 2016-11-27 11:39 | REP ---
REASON: TIA/stroke. PRIORS: None. RIGHT LEFT CCA systolic 72.1 cm/s 82.8 cm/s CCA diastolic 15.8 cm/s 24.4 cm/s ICA systolic 76.6 cm/s 85.9 cm/s ICA diastolic 17.4 cm/s 31.4 cm/s ICA/CCA ratio 1.06 1.04 Analysis of the spectral tracing shows mild spectral broadening. IMPRESSION: According to the NASCET consensus criteria, there is less that 50% stenosis in the internal carotid arteries secondary to atherosclerotic plaque formation. Signed by Curtis Gillespie DO 11/27/2016 09:45 A
[2016-11-27] MEDS: ASPIRIN 81 MG ENTERIC TAB PO SCH (13:17)
--- NOTE | 2016-11-27 13:19 | CR ---
DATE OF CONSULTATION: 11/26/2016 REFERRING PHYSICIAN: Dr. Nagi Sutton REASON FOR CONSULTATION: Acute stroke. HISTORY OF PRESENT ILLNESS: Luis Miguel Weber is a 61-year-old man with history of coronary artery disease, status post cardiac bypass graft, congestive heart failure, status post automatic implantable cardioverter defibrillator (AICD), cerebral aneurysm, status post aneurysm clipping, end-stage renal disease on hemodialysis, who was admitted at [facility] as he had missed hemodialysis last week. He stated that he had no energy to go to hemodialysis so he was sitting at his home and missed his hemodialysis appointments to the condition that he was worsening. He came to the emergency department. This morning, he woke up around 7 a.m. and was noted to be his normal self, around 7:15 a.m. when his condition worsened. He became semiconscious. He had severe difficulty talking. He had complete paralysis of left side of his body. His NIH stroke scale was calculated to be 15 at that time. I was called around 8:26 a.m. At that time, CT scan of head and blood tests were ordered. His CT scan of head did not show any acute disease. His CBC and coagulation profile was within normal limits. His fingerstick blood glucose was 65 initially and after getting an ampule of D50 his blood sugar came up to 300 but his symptoms persisted. At that time, decision was made to give him intravenous tissue plasminogen activator (tPA)/alteplase. Family had decided to make him DO NOT RESUSCITATE and DO NOT INTUBATE. His infusion stopped around 11 a.m. and when I saw him around 11:30 a.m. his symptoms were significantly better according to nursing staff in intensive care unit. His NIH stroke scale at that time was 5. He had minimal dysarthria and left arm pronator drift and 4/5 strength in left lower extremity. He was able to follow commands. He was awake and alert at that time. The patient complained of headache and that time. He was later sent to have another CT scan of head to rule out cerebral hemorrhage. His repeat CT scan was also within normal limits. Patient cannot have MRI scan of brain. He currently denies any neck or back pain. He denies dysphagia, diplopia or urinary incontinence. DIAGNOSTIC STUDIES: CT scan of his head showed left old frontal encephalomalacia likely related to his aneurysm clipped in the brain. His creatinine baseline was 7.18 and after dialysis was 4.11. PAST MEDICAL HISTORY: End-stage renal disease, coronary artery disease, status post coronary artery bypass graft (CABG), congestive heart failure, status post AICD, cerebral aneurysm, status post clipping, hemodialysis, diabetes. HOME MEDICATIONS: - Coreg 3.125 mg by mouth twice a day - insulin Lantus 40 units subcutaneous twice a day - insulin NovoLog sliding scale - spironolactone 25 mg by mouth daily - Zoloft 25 mg by mouth daily ALLERGIES: E[employer]ODUCTS. SOCIAL HISTORY: He denies smoking, alcohol or illicit drugs. REVIEW OF SYSTEMS: All systems were reviewed and found to be noncontributory except as mentioned in history present illness. FAMILY HISTORY: Noncontributory. PHYSICAL EXAMINATION: Temperature 97.4, pulse 71, respiratory 20, blood pressure 139/73. Heart regular rate and rhythm. Lungs clear to auscultation. No pedal edema. No rash or gross musculoskeletal abnormalities. Ear, nose and throat examination is within normal limits. Patient is minimally drowsy and arousable. He is able to follow commands. He has minimal dysarthria currently. His extraocular signs are intact. No facial weakness. Tongue and uvula are midline. 5/5 strength in left arm and 4+/5 strength in left lower extremity. Right-sided strength is 5/5. Deep tendon reflexes are 1+ in arms and knees and absent at ankles. Gait could not be tested. He has mild left-sided dysmetria. ASSESSMENT: 1. Acute ischemic stroke and patient is status post tissue plasminogen activator with significant improvement. 2. Coronary artery disease, history of coronary artery bypass graft and automatic implantable cardioverter defibrillator placement. 3. History of cerebral aneurysm status post surgical clipping. 4. End-stage renal disease with hemodialysis PLAN: 1. No aspirin, heparin or Lovenox for [address] scan of head tomorrow. 3. Carotid ultrasound. Patient cannot have MRI scan. 4. Physical and occupational therapy. 5. Start aspirin 81 mg by mouth daily 24 hours after his infusion of tPA. 6. Check fasting lipid profile. 7. Follow with our office in 1 month after hospital discharge.
[2016-11-27] MEDS ORDERED: D10W 500 ML IV SCH (14:00)
[2016-11-27] MEDS: HEPARIN SOD (PORCINE) 5000 UNITS/ML VIAL SQ SCH ×2 (14:10→21:28)
[2016-11-27 14:51] LABS: MEAN CORPUSCULAR HEMOGLOBIN 27.7 pg (27.0-33.0); MEAN CORPUSCULAR VOLUME 89.3 fl (80.0-96.0); RED CELL DISTRIBUTION WIDTH 17.7 % (11.5-14.5); WHITE BLOOD COUNT 6.1 10^3/uL (4.0-10.0)
[2016-11-27 15:26] LABS: CALCIUM LEVEL 8.7 MG/DL (8.8-10.2); CREATININE FOR GFR 5.28 MG/DL (0.70-1.30); GLOMERULAR FILTRATION RATE 11.8 (>49)
[2016-11-28] VITALS: BP 97/63
[2016-11-28 04:00] VITALS: BP 111/77
[2016-11-28 05:22] LABS: CALCIUM LEVEL 8.5 MG/DL (8.8-10.2); CREATININE FOR GFR 5.9 MG/DL (0.70-1.30); GLOMERULAR FILTRATION RATE 10.4 (>49); POTASSIUM SERUM 4.8 MEQ/L (3.5-5.1)
[2016-11-28] MEDS: HEPARIN SOD (PORCINE) 5000 UNITS/ML VIAL SQ SCH ×3 (06:24→21:03)
[2016-11-28] MEDS: HumaLOG INSULIN (NovoLOG) PER UNIT SC SCH ×3 (07:30→18:04)
--- NOTE | 2016-11-28 07:51 | REP ---
REASON: Status post TPA. COMPARISON: 11/26/2016 Pre- and post TPA administration. There is no significant change from the prior exam. There is no evidence of an acute intracranial hemorrhagic or nonhemorrhagic event. The ventricles and sulci are unchanged. There is no shift in the midline structures. There is spray artifact arising from an aneurysm clip status quo. The skull, paranasal sinuses, and mastoid air cells are unchanged remaining within normal limits. IMPRESSION: No acute disease. Signed by Curtis Gillespie DO 11/28/2016 12:09 P
[2016-11-28 08:07] VITALS: BP 118/76
--- NOTE | 2016-11-28 09:19 | IPN ---
DATE OF SERVICE: 11/27/2016 SUBJECTIVE: The patient is seen this morning in the intensive care unit (ICU). He remains with mild dysarthria. He otherwise denies any complaints. He had a repeat head CT this evening and the report is pending. REVIEW OF SYSTEMS: Negative for chest pain, palpitations, shortness of breath, nausea, vomiting, diarrhea. Temperature 97.6. Pulse 75. Respiratory rate 18. Blood pressure 119/81. Saturating 100% on 2 liters nasal cannula. Weight on the bed scale today 107.3 kg. PHYSICAL EXAMINATION: The patient is seen in the intensive care unit (ICU) in no acute distress lying comfortably in bed. HEAD AND NECK: Moist mucous membranes. Tongue is midline. There is no jugular venous distention (JVD). CARDIAC: S1, S2. 2+ radial pulse. 1+ pitting edema in the lower extremities. Abdomen: soft, obese, nontender Lungs: clear to auscultation bilaterally. Extremity: RUE fistula with thrill and bruit NEUROLOGIC: The patient is answering simple questions appropriately and following commands without issues. He has minimal dysarthria. Strength in the lower extremities seems to be symmetric. He has left sided diadachokinesis. LABS: White count 6.1, hemoglobin 11.6 and platelets 165. Sodium 135, potassium 5.0, bicarbonate 26, calcium 8.7, magnesium 2.0, glucose 73 to 117. IMAGING: Head CT on 11/26/2016 with no acute intracranial hemorrhage. Unchanged from earlier head CT on 11/26/2016. INPATIENT MEDICATIONS: Reviewed by myself. The patient was on a D5W drip at 80 mL/hr per the primary team. For concern of hypoglycemia when his sugars were in the 70s, I discontinued the D5W and put him on D10W at 20 mL/hr to minimize his IV intake. He is started today on aspirin 81 mg by mouth daily and on deep vein thrombosis (DVT) prophylaxis with heparin subcutaneous. Remainder of medications are unchanged from prior. ASSESSMENT AND PLAN: 1. Acute ischemic stroke status post tissue plasminogen activator (tPA) with significant improvement. The patient continues with stroke work up with carotid ultrasound. He had a repeat CT scan of the head today, the report is pending. He will followup with neurology as an outpatient. 2. History of coronary artery disease (CAD) status post coronary artery bypass graft (CABG) with systolic cardiomyopathy. The patient had an echo which revealed an ejection fraction of 20% with moderate tricuspid regurgitation and moderate pulmonary hypertension. 3. End stage renal disease on hemodialysis. The patient's next hemodialysis session will be on 11/28/2016, with close attention to his hemodynamics. 4. Hypoglycemia. Patient's sugars were in the 70s and he was on a D5W drip at 80 mL/hr as per the primary team. I switched him to D10W at 20 mL/hr to reduce his IV intake. His sugars improved and the dextrose infusion was discontinued. MTDD
[2016-11-28] MEDS: SPIRONOLACTONE 25 MG TAB PO SCH (09:26)
[2016-11-28] MEDS: SERTRALINE HCL 25 MG TABLET PO SCH (09:27)
[2016-11-28] MEDS: CARVedilol 3.125 MG TAB PO SCH ×2 (09:27→21:00)
[2016-11-28] MEDS: ASPIRIN 81 MG ENTERIC TAB PO SCH (09:27)
[2016-11-28 12:00] VITALS: BP 104/62
--- NOTE | 2016-11-28 14:33 | IPNPDOC ---
Text Note Date of Service The patient was seen on 11/28/16. NOTE Subjective: No acute changes overnight. Still has mild dysarthria. Objective: Vitals: (see below) General: No acute distress, laying comfortably in bed. HEENT: Moist mucous membranes. Neck: No JVD or lymphadenopathy Cardiac: RRR, No murmurs Pulm: Crackles at the bases bilaterally. No wheezing, rhonchi Abd: NT/ND + BS. Obese Ext: Trace edema bilateral lower extremities. No cyanosis Neuro: Strength 5/5 bilateral upper extremities and lower extremities. CN 2-12 intact, with the exception of mild dysarthria. His dysphasia and expressive aphasia have resolved. Negative pronator drift on the left Negative Babinki NIH this morning 1 Labs (see below) Images: CT head 11/26/16 There is spray artifact arising from what is most probably a surgical clip due to aneurysmal repair. A subtle area of decreased density is seen in the centrum semiovale on the left near the convexity. There is no evidence of an acute intraparenchymal hemorrhage. There is no shift of the midline structures. The ventricles and sulci appear appropriate for the age of the patient. IMPRESSION: Area of decreased density seen in the left frontoparietal region as described above. Without a prior for comparison, I cannot say whether or not this represents an acute finding or chronic change. The patient has had brain surgery; there are likely priors somewhere and they should be obtained for comparison. There is no evidence of an acute intracranial hemorrhage. There is no mass effect. Echocardiogram 11/26/16 IMPRESSION: 1. Severe left ventricular systolic dysfunction with diffuse hypokinesis and mildly enlarged left ventricle. A restrictive mitral inflow pattern was noted, can be a poor cardiac prognostic marker. 2. Aortic valve sclerosis without stenosis or aortic regurgitation. 3. Mitral annulus calcification with mildly enlarged left atrium and moderate mitral regurgitation. 4. Moderate tricuspid regurgitation with moderate pulmonary hypertension. The right atrium also verito yesterday eared to be mildly enlarged. Assessment/Plan 1. Acute CVA with Left sided hemiparesis, severe dysarthria and severe aphasia 11/26/16. Status post TPA with significant resolution of his symptoms with the exception of mild dysarthria. Carotid ultrasound. MRI/MRA brain pending. Neuro checks. Continue to monitor in the ICU. Appreciate neurology recommendations. Started on ASA/statin. 2. Nonsustained V. tach- asymptomatic. K greater than 4, MG greater than 2. Patient receiving his beta joel this morning as he had significant dysphagia. Will restart Coreg as patient is tolerating by mouth. Echocardiogram with EF of 20%. He does have an AICD for his systolic heart failure. Echocardiogram (see above). 3. History of CAD status post CABG, stable continue home meds 4. History of cardiomyopathy status post AICD- continue home meds 5. Hypertension- continue meds 6. GERD- continue home meds 7. Morbid obesity 8. Hyperlipidemia- continue meds 9. End-stage renal disease on hemodialysis- patient has been noncompliant with results of multiple readmissions. He has been seen by psychiatry and his prior admission. He states that he was unable to go to dialysis because he was unable to drive there however case management had previously arranged for him to be picked up and he had refused in the past. Nephrology on board. Patient getting dialysis while inpatient. Will likely be readmitted in the near future given his noncompliance. 10. Insulin-dependent diabetes mellitus- Levemir d/c for now. SSI. DVT prophy: Subcutaneous heparin Poor prognosis. The next of kin, Olga , can be reached at [phone]. Initially it was unclear with the next of kin was however the patient outpatient hemodialysis unit confirm that it was Olga. VS,Carlos, I+O VS, Carlos, I+O Laboratory Tests 11/27/16 14:46 Red Blood Count 4.19 L, Mean Corpuscular Volume 89.3, Mean Corpuscular Hemoglobin 27.7, Mean Corpuscular Hemoglobin Concent 31.0 L, Red Cell Distribution Width 17.7 H, Calcium Level 8.7 L 11/28/16 04:11 Vital Signs Date Time Temp Pulse Resp B/P (MAP) Pulse Ox O2 Delivery O2 Flow Rate FiO2 11/28/16 12:00 97.6 58 16 104/62 (76) 100 Nasal Cannula 2.0 I&O- Last 24 Hours up to 6 AM 11/29/16 05:59 Intake Total 0 ml Output Total 0 ml Balance 0 ml THADDEUS SHI MD Nov 28, 2016 14:33
[2016-11-28] MEDS: ATORVASTATIN 20 MG TAB PO SCH (14:56)
[2016-11-28 16:00] VITALS: BP 113/73
[2016-11-28] MEDS ORDERED: SLF 3 ML SYR IV PRN (16:00)
[2016-11-28 20:00] VITALS: BP 104/68
[2016-11-28] MEDS: SLF 3 ML SYR IV SCH (21:04)
[2016-11-29] VITALS (8 sets, daily range): BP systolic 102–128; BP diastolic 64–78
[2016-11-29 05:26] LABS: CALCIUM LEVEL 8.7 MG/DL (8.8-10.2); CREATININE FOR GFR 6.39 MG/DL (0.70-1.30); GLOMERULAR FILTRATION RATE 9.4 (>49); MAGNESIUM LEVEL 2.1 MG/DL (1.8-2.4); POTASSIUM SERUM 4.8 MEQ/L (3.5-5.1)
--- NOTE | 2016-11-29 05:53 | IPN ---
DATE OF VISIT: 11/28/2016 SUBJECTIVE: The patient is seen this morning in the intensive care unit (ICU). There were no acute changes reported overnight. He does not verbalize much but when he speaks he is noted to still have mild dysarthria. He denies any complaints. REVIEW OF SYSTEMS: Negative for headache, dizziness, chest pain, palpitations, shortness of breath, nausea, vomiting, diarrhea. VITAL SIGNS: Temperature 96.8, pulse 62, respiratory rate 18, blood pressure 113/73, saturating 95% on room air. Intake and output: Oral intake is not recorded. Weight on the bed scale today is 108.3 kg. PHYSICAL EXAMINATION: GENERAL: The patient is seen in the ICU lying in bed in no acute distress. HEAD/NECK: Moist mucous membranes. No jugular venous distention. CARDIAC: S1, S2. 2+ radial pulses. Systolic murmur. There is 1+ pitting edema in the left lower extremity and trace edema in the right. He has a left chest wall defibrillator. RESPIRATORY: Diminished at bases, otherwise clear. ABDOMEN: Soft, obese, nontender. EXTREMITIES: Right upper extremity fistula with thrill and bruit. Left lower extremity with 1+ pitting edema, right lower extremity with trace. NEUROLOGIC: The patient always has the tendency to give very short answers to questions. He remains dysarthric. MUSCULOSKELETAL: Strength is symmetrical. LAB DATA: Sodium 137, potassium 4.8, bicarbonate 27, calcium 8.5, magnesium 2.0, glucose 173. IMAGING: CT of the head on November 27: No acute change from prior. INPATIENT MEDICATIONS: The is now on aspirin 81mg by mouth daily. He has resumed on deep venous thrombosis (DVT) prophylaxis with heparin subcutaneous. There are no other significant changes in his medications. ASSESSMENT AND PLAN: 1. Acute ischemic cerebral vascular accident (CVA) status post tissue plasminogen activator (tPA) with improvement in symptoms. The patient was evaluated by neurology, Dr. Pacheco . The patient remains on neurochecks with further stroke work-up. Continue with physical therapy (PT), occupational therapy (OT). He is on a mechanical diet and on aspirin and statins. 2. End-stage renal disease on hemodialysis. The patient will be dialyzed tomorrow November 29 with close attention to his hemodynamics. He has a history of general noncompliance and a specific noncompliance with hemodialysis resulting in multiple readmissions. This is an ongoing issue. 3. Systolic heart failure, status post automatic implantable cardio converter-defibrillator (AICD). His volume status is improved from prior. Continue ultrafiltration as tolerated by hemodynamics. 4. Nonsustained ventricular tachycardia (V-tach). The patient has a defibrillator. He continues on carvedilol. His serum potassium and magnesium are both stable.
[2016-11-29] MEDS: HEPARIN SOD (PORCINE) 5000 UNITS/ML VIAL SQ SCH ×3 (06:05→21:06)
[2016-11-29] MEDS: SLF 3 ML SYR IV SCH ×3 (06:05→21:06)
[2016-11-29] MEDS: HumaLOG INSULIN (NovoLOG) PER UNIT SC SCH ×3 (08:45→17:21)
--- NOTE | 2016-11-29 12:42 | IPN ---
DATE: 11/29/2016 Mr. Weber has no complaints of pain. No chest pain. No shortness of breath. Temperature 97, pulse 60, respiratory rate 20, blood pressure 128/75, 96% on room air. Flattened affect. No acute distress. Body Mass Index (BMI) 35.3. Breathing is symmetrical and diminished. I:E ratio is 1:3. No wheezes, rales or rhonchi. Heart is distant sounding. Normal S1, S2. Abdomen is soft, doughy, nontender. White cell count 6.1, hemoglobin 11.6, platelets of 155. BUN 49, creatinine 6.39. My assessment is as follows: This is a 61-year-old with multiple medical issues, most pressing is recent CVA and chronic end stage renal disease. PLAN: 1. End stage renal disease on hemodialysis. The patient is planned for dialysis today. He is being followed by Dr. Stark. He has had issues with compliance as an outpatient. 2. The patient has acute CVA with left sided hemiparesis. He has refused therapy today. Will likely need subacute rehabilitation or placement. 3. The patient has had nonsustained ventricular tachycardia. He is continued with Coreg. 4. The patient has coronary artery disease, status post coronary artery bypass graft (CABG). 5. The patient has a history of severe ventricular systolic dysfunction. 6. The patient has hypertension. 7. The patient has morbid obesity, which complicates care. 8. The patient has insulin-dependent diabetes.
[2016-11-29] MEDS: SERTRALINE HCL 25 MG TABLET PO SCH (14:12)
[2016-11-29] MEDS: ASPIRIN 81 MG ENTERIC TAB PO SCH (14:12)
[2016-11-29] MEDS: SPIRONOLACTONE 25 MG TAB PO SCH (14:12)
[2016-11-29] MEDS: ATORVASTATIN 20 MG TAB PO SCH (14:12)
[2016-11-29] MEDS: CARVedilol 3.125 MG TAB PO SCH ×2 (14:17→20:24)
[2016-11-30] MEDS: SLF 3 ML SYR IV SCH ×3 (05:37→21:27)
[2016-11-30] MEDS: HEPARIN SOD (PORCINE) 5000 UNITS/ML VIAL SQ SCH ×3 (05:37→21:25)
--- NOTE | 2016-11-30 05:53 | IPN ---
DATE: 11/29/2016 SUBJECTIVE: The patient is seen this morning on hemodialysis. He has no complaints, tolerating oral diet. No nausea, no vomiting, no chest pain, and no shortness of breath. REVIEW OF SYSTEMS: The patient denies headache, dizziness, chest pain, palpitations, shortness of breath, nausea, vomiting, diarrhea, abdominal pain. He complains of weakness in the legs and states he chronically has trouble ambulating. OBJECTIVE: VITAL SIGNS: Temperature 97.0, pulse 71, respiratory rate 20, blood pressure 118/70, saturating 96% on room air. INTAKE AND OUTPUT: Hemodialysis today removed 2000 mL ultrafiltration. PHYSICAL EXAMINATION: GENERAL: Seen on hemodialysis in no acute distress. Gives short answers to questions. HEAD/NECK: Extraocular muscles are intact. Mucous membranes are moist. CARDIAC: S1, S2. Defibrillator present in the left chest wall. 2+ radial pulse. LUNGS: Clear to auscultation bilaterally. He is seen on room air. ABDOMEN: Soft, nontender. Positive bowel sounds. EXTREMITIES: Right upper quadrant with fistula with thrill and bruit. Left lower extremity with 1+ edema. PSYCHIATRIC: Flattened affect. LABORATORY DATA: White count 6.1, hemoglobin 11.6, platelets 155. Sodium 138, potassium 4.7, bicarbonate 26, calcium 8.7, magnesium 2.1, glucose 120. INPATIENT MEDICATIONS: Reviewed by myself. The patient continues on aspirin and statin. There are no other significant changes in the past 24 hours. ASSESSMENT AND PLAN: 1. End-stage renal disease on hemodialysis with history of chronic noncompliance of the same. The patient received a hemodialysis treatment today with 2000 mL ultrafiltration. He states he chronically misses his hemodialysis sessions, although transport has been arranged for him from his home to the dialysis center. He states he misses hemodialysis because he has trouble walking from his home to the transportation vehicle in the parking lot. 2. Acute ischemic cerebrovascular accident (CVA). The patient continues on aspirin and statin. He may require rehabilitation. 3. Systolic heart failure status post automatic implantable cardioverter defibrillator (AICD) with history of nonsustained ventricular tachycardia (V-tac). Continue ultrafiltration on hemodialysis as tolerated by hemodynamics.
[2016-11-30 06:00] VITALS: BP 110/65
[2016-11-30 06:52] LABS: MEAN CORPUSCULAR HGB CONC 31.1 g/dl (32.0-36.5); MEAN CORPUSCULAR VOLUME 86.7 fl (80.0-96.0); RED CELL DISTRIBUTION WIDTH 17.4 % (11.5-14.5); WHITE BLOOD COUNT 6.7 10^3/uL (4.0-10.0)
[2016-11-30 07:08] LABS: CALCIUM LEVEL 8.4 MG/DL (8.8-10.2); CREATININE FOR GFR 4.52 MG/DL (0.70-1.30); GLOMERULAR FILTRATION RATE 14.1 (>49); MAGNESIUM LEVEL 1.8 MG/DL (1.8-2.4); POTASSIUM SERUM 4.1 MEQ/L (3.5-5.1)
[2016-11-30] MEDS: HumaLOG INSULIN (NovoLOG) PER UNIT SC SCH ×3 (07:30→17:22)
[2016-11-30] MEDS: CARVedilol 3.125 MG TAB PO SCH ×3 (09:00→21:25)
[2016-11-30] MEDS: ASPIRIN 81 MG ENTERIC TAB PO SCH ×2 (09:00→09:33)
[2016-11-30] MEDS: ATORVASTATIN 20 MG TAB PO SCH ×2 (09:00→09:33)
[2016-11-30] MEDS: SERTRALINE HCL 25 MG TABLET PO SCH ×2 (09:00→09:33)
[2016-11-30] MEDS: SPIRONOLACTONE 25 MG TAB PO SCH ×2 (09:00→09:33)
--- NOTE | 2016-11-30 09:01 | NOCOX ---
DATE OF STUDY: 11/28/2016 into the morning of 11/29/2016 The study was performed on room air. The study was of excellent technical quality. Mean oxygen saturation 93.7%. Marked variability throughout the night in a pattern very strongly consistent with Hector-Hogue respirations is noted. Lowest reliable oxygen saturation 62%. IMPRESSION: Abnormal nocturnal oximetry, mostly consistent with Hector-Hogue respirations. Suggest adding supplemental oxygen, treating the underlying disorder and repeating nocturnal oximetry.
--- NOTE | 2016-11-30 12:06 | IPN ---
DATE: 11/30/2016 Mr. Weber is refusing medications this morning. He says he does not feel well. He does not feel as though he can swallow them, although he has been able to eat food just fine. Temperature 97.7, pulse 67, respiratory rate 20, blood pressure 110/65, and 95% on room air. Ins and outs notable for a negative fluid balance of -1890. No bowel movements noted yesterday. Body mass index is 34.2. He is awake, appropriately interactive, seems somewhat flattened. Neck supple. Breathing is symmetrical, rested. Heart is distant sounding. Normal S1, S2. Abdomen soft, doughy, nontender. White cell count 6.7, hemoglobin 11.2 and platelet 158. BUN 28, creatinine 4.5. Nocturnal oximetry study shows Hector-Hogue respirations. The patient needs supplemental oxygen at night. ASSESSMENT: This is a 61-year-old with multiple medical issues, recent CVA and chronic end stage renal disease on hemodialysis. PLAN: 1. Hemodialysis. The patient is being seen by Dr. Stark. He had dialysis yesterday. His main issues with dialysis as an outpatient have been noncompliance. The patient will likely need a supervised setting. 2. The patient had an acute CVA with left sided hemiparesis. He did refuse therapy yesterday. I have encouraged him to work with physical and occupational therapy so that he can plan better for the future. 3. The patient has had nonsustained ventricular tachycardia. He had a few beats again overnight and has continued on Coreg and was asymptomatic at the time. 4. The patient has coronary artery disease status post bypass grafting. 5. The patient has history of severe ventricular systolic dysfunction. 6. The patient has hypertension. 7. The patient has morbid obesity which complicates care. 8. The patient has insulin dependent diabetes. 9. I am concerned the patient may have an element of depression likely based on his illness. I did discuss this with him quite openly. He denies any depressed mood and says he just feels physically unwell.
[2016-11-30 14:00] VITALS: BP 130/81
[2016-11-30 22:00] VITALS: BP 131/80
[2016-12-01] MEDS: SLF 3 ML SYR IV SCH ×3 (05:21→21:31)
[2016-12-01] MEDS: HEPARIN SOD (PORCINE) 5000 UNITS/ML VIAL SQ SCH ×3 (05:21→21:31)
[2016-12-01 06:00] VITALS: BP 121/68
--- NOTE | 2016-12-01 06:02 | IPN ---
DATE: 11/30/2016 SUBJECTIVE: Mr. Weber was seen today at the bedside. He gives short, terse answers to questions this morning. He denies any acute complaints. He does not offer much history. He follows commands perfectly when instructed to cooperate with physical exam, but he does not offer much in the way of verbal conversation. He is agreeable for dialysis tomorrow. When I discussed with him regarding his general noncompliance and the fact that he had a stroke on this admission, he seemed rather uninterested in pursuing the conversation. REVIEW OF SYSTEMS: The patient denies complaints. His only complaint is chronic weakness. He otherwise denies review of systems. OBJECTIVE: VITAL SIGNS: Temperature 97.7, pulse 67, respiratory rate 20, blood pressure 110/65, saturating 95% on room air. INTAKE AND OUTPUT: Hemodialysis yesterday removed 2000 mL ultrafiltration. There is no weight in the bed scale recorded today. PHYSICAL EXAMINATION: GENERAL: The patient is seen at the bedside. He does not make eye contact unless requested. He is awake, alert and in no acute distress. HEAD/NECK: Extraocular muscles are intact. Mucous membranes are moist. Neck is supple. CARDIOVASCULAR: S1, S2. Defibrillator in left chest wall. 2+ radial pulse. Left lower extremity with 1+ edema. Otherwise, no significant peripheral edema. LUNGS: Clear to auscultation bilaterally. ABDOMEN: Soft, doughy, nontender. EXTREMITIES: Left lower extremity with 1+ edema. Right lower extremity with fistula with thrill and bruit. NEUROLOGIC: Dysarthric; otherwise, no focal deficit appreciated. PSYCHIATRIC: Withdrawn, flattened mood, possibly depressed. LABORATORY DATA: White count 6.7, hemoglobin 11.2, platelets 158. Sodium 138., potassium 4.1, bicarbonate 32, calcium 8.4, magnesium 1.8, glucose 104. INPATIENT MEDICATIONS: There are no significant changes in the past 24 hours. ASSESSMENT AND PLAN: 1. End-stage renal disease on hemodialysis. The patient is currently off his maintenance schedule. We plan to dialyze him tomorrow, 12/01. General noncompliance with hemodialysis in the outpatient setting has been a chronic issue. 2. Acute cerebrovascular accident (CVA) with left-sided hemiparesis, status post tissue plasminogen activator (tPA) and subsequent improvement in symptoms. May require placement. He has been receiving physical therapy. He seems uninterested in the fact that he had a stroke. 3. Coronary artery disease status post coronary artery bypass graft (CABG) with cardiomyopathy, ejection fraction of around 20%, status post defibrillator. Continue with volume regulation on hemodialysis as tolerated by hemodynamics. 4. Hypertension, currently well controlled. 5. Anemia of chronic kidney disease. Hemoglobin remains slightly above goal. No erythropoietin-stimulating agent (RENAE) at this time. MTDD
[2016-12-01 07:05] LABS: MEAN CORPUSCULAR HEMOGLOBIN 27.6 pg (27.0-33.0); MEAN CORPUSCULAR HGB CONC 31.5 g/dl (32.0-36.5); MEAN CORPUSCULAR VOLUME 87.7 fl (80.0-96.0); RED CELL DISTRIBUTION WIDTH 17.6 % (11.5-14.5); WHITE BLOOD COUNT 6.1 10^3/uL (4.0-10.0)
[2016-12-01 07:18] LABS: CALCIUM LEVEL 8.8 MG/DL (8.8-10.2); CREATININE FOR GFR 5.34 MG/DL (0.70-1.30); GLOMERULAR FILTRATION RATE 11.6 (>49); MAGNESIUM LEVEL 2.1 MG/DL (1.8-2.4); POTASSIUM SERUM 4.1 MEQ/L (3.5-5.1)
[2016-12-01] MEDS: HumaLOG INSULIN (NovoLOG) PER UNIT SC SCH ×3 (08:00→17:42)
[2016-12-01] MEDS: SPIRONOLACTONE 25 MG TAB PO SCH (08:00)
[2016-12-01] MEDS: CARVedilol 3.125 MG TAB PO SCH ×2 (08:00→21:30)
[2016-12-01] MEDS: SERTRALINE HCL 25 MG TABLET PO SCH (08:00)
[2016-12-01] MEDS: ASPIRIN 81 MG ENTERIC TAB PO SCH (08:00)
[2016-12-01] MEDS: ATORVASTATIN 20 MG TAB PO SCH (08:00)
[2016-12-01] MEDS ORDERED: HEPARIN 1,000 UNITS/ML 10ML VIAL (FOR RADIOLOGY& DIALYSIS ONLY) IV ONE (10:00)
--- NOTE | 2016-12-01 13:58 | IPN ---
DATE: 12/01/2016 Mr. Weber has not been taking his medications. He denies depression or anxiety. He says he wants to leave the hospital but he is not sure how. Temperature is 98.4, pulse 62, respiratory rate 18, blood pressure 121/68, 97% in room air. Input and output notable for a positive fluid balance of 180. One bowel movement yesterday. He is awake, appropriately interactive, pleasantly not conversant with a flattened affect. He does follow commands. Mucous membranes are moist. Neck is thick. Breathing is symmetrical, rested. I/E ratio is 1:3. Heart is in a regular rate and rhythm. White cell count 6.1, hemoglobin 11.2, platelets 153. BUN 38, creatinine 5.3. ASSESSMENT: This is a 61-year-old with multiple medical issues, recent cerebrovascular accident (CVA) and chronic endstage renal disease on hemodialysis. PLAN: 1. Hemodialysis: The patient is being seen by Dr. Patrice Stark. I have discussed this case with him in person. The patient will likely need a supervised setting at the time of his discharge. 2. The patient with acute CVA with left-side hemiparesis: He did refuse therapy yesterday. I again have encouraged him to work with therapy so that we can make a better discharge plan for him. 3. The patient has had nonsustained V-tac during his stable. He does have an automatic implantable cardioverter-defibrillator (AICD). He is on Coreg. Telemetry has been discontinued. 4. The patient has coronary artery disease status post coronary artery bypass graft (CABG). 5. The patient has a history of severe ventricular systolic function. 6. The patient has hypertension. 7. The patient has morbid obesity, which complicates care. 8. The patient has insulin dependent diabetes. 9. The patient likely has an element of depression and perhaps also complicated with cognitive impairment. He is declining psychiatric consultation.
[2016-12-01 22:00] VITALS: BP 122/80
[2016-12-02] MEDS: SLF 3 ML SYR IV SCH ×3 (05:26→21:13)
[2016-12-02] MEDS: HEPARIN SOD (PORCINE) 5000 UNITS/ML VIAL SQ SCH ×3 (05:27→21:13)
[2016-12-02 06:00] VITALS: BP_SYST 139; BP_SYST 148; BP_DIAS 82; BP_DIAS 85
[2016-12-02 06:21] LABS: MEAN CORPUSCULAR HEMOGLOBIN 27.5 pg (27.0-33.0); MEAN CORPUSCULAR HGB CONC 31.8 g/dl (32.0-36.5); MEAN CORPUSCULAR VOLUME 86.3 fl (80.0-96.0); RED CELL DISTRIBUTION WIDTH 17.2 % (11.5-14.5); WHITE BLOOD COUNT 6.8 10^3/uL (4.0-10.0)
[2016-12-02 06:27] LABS: CALCIUM LEVEL 8.9 MG/DL (8.8-10.2); CREATININE FOR GFR 4.1 MG/DL (0.70-1.30); GLOMERULAR FILTRATION RATE 15.8 (>49); MAGNESIUM LEVEL 2.1 MG/DL (1.8-2.4); POTASSIUM SERUM 4.3 MEQ/L (3.5-5.1)
[2016-12-02] MEDS: HumaLOG INSULIN (NovoLOG) PER UNIT SC SCH ×3 (07:30→17:29)
[2016-12-02] MEDS ORDERED: HEPARIN 1,000 UNITS/ML 10ML VIAL (FOR RADIOLOGY& DIALYSIS ONLY) IV ONE (10:15)
--- NOTE | 2016-12-02 13:21 | IPN ---
DATE: 12/02/2016 Mr. eWber is seen today during hemodialysis. He was dialyzed yesterday, but we decided to dialyze him again today to get him back on his regular schedule of Monday, Monday and Monday. Mr. Weber has a long history of noncompliance and now since he had a stroke he has slurred speech and he is even more noncompliant. He is now refusing medications in the hospital and also has been refusing to participate in physical therapy. The patient denies any fever, chills, nausea, vomiting, dyspnea or chest pain. On physical examination, temperature 97.8 degrees Fahrenheit, heart rate 70 per minute and respiratory rate 15 per minute. Blood pressure 139/82 mmHg and oxygen saturation 94% on room air. His head is atraumatic. Neck is supple and without jugular venous distention (JVD). There is no thyroid enlargement. The facial rash seems to be improved today compared with yesterday. His heart sounds are regular and lungs sound clear to auscultation. Abdomen is soft and nontender and without a palpable organomegaly. Extremities: Have no cyanosis or clubbing. Right forearm AV fistula is patent. He does not have any peripheral edema. Neurologically, he is awake, alert and oriented times three. His speech remains slurred. Today's labs show WBC count 6.8, hemoglobin 11.4 and hematocrit 35.8. Platelets 164. Sodium is 137 and potassium 4.3. BUN 23 and creatinine 4.10. PROBLEMS: 1. End-stage renal disease. The patient is being dialyzed again today. He is tolerating dialysis treatment well. We are attempting to remove 3 liters of fluid. 2. Hypertension. Blood pressure is very well controlled on current antihypertensive medications. 3. Anemia. His anemia has been stable and does not need any intervention at present. 4. Recent stroke. The patient remains with slurred speech. He unfortunately is not participating with physical therapy. He is likely to require long-term senior living placement due to his multiorgan life long medical problems and inability to care for himself.
[2016-12-02] MEDS: ATORVASTATIN 20 MG TAB PO SCH (13:33)
[2016-12-02] MEDS: SERTRALINE HCL 25 MG TABLET PO SCH (13:33)
[2016-12-02] MEDS: ASPIRIN 81 MG ENTERIC TAB PO SCH (13:33)
[2016-12-02] MEDS: SPIRONOLACTONE 25 MG TAB PO SCH (13:33)
[2016-12-02] MEDS: CARVedilol 3.125 MG TAB PO SCH ×2 (13:34→20:38)
--- NOTE | 2016-12-02 13:47 | IPN ---
DATE: 12/02/2016 Mr. Weber is declining medications again today. No complaints of pain, chest pain, or shortness of breath. PHYSICAL EXAMINATION: VITAL SIGNS: Temperature is 97.8, pulse 71, respiratory rate 15, blood pressure 139/82, 94% on room air. Input and output notable for a net fluid balance of -2940, one bowel movement yesterday. He is awake, appropriately interactive, flattened affect. Breathing is symmetrical and diminished. Mucous membranes are moist. Neck is supple, thick. Heart is distant sounding. Normal S1, S2. Abdomen is soft, doughy, nontender. White cell count 6.8, hemoglobin 11.4, platelets of 164. BUN 23, creatinine 4.1. ASSESSMENT: This is a 61-year-old with multiple medical issues, recent cerebrovascular accident (CVA) and chronic endstage renal disease on hemodialysis. PLAN: 1. Hemodialysis: The patient is being followed by Dr. Stark. Dr. Stark is managing renal failure and dialysis. The patient will need a supervised setting at the time of discharge. 2. The patient has an acute CVA with left-side hemiparesis: He is intermittently refusing therapy. 3. The patient has had nonsustained V-tac during his stay. He has an automatic implantable cardioverter-defibrillator (AICD). Telemetry was discontinued. 4. The patient has coronary artery disease status post coronary artery bypass graft (CABG). 5. The patient has a history of systolic dysfunction. 6. The patient has hypertension. 7. The patient has morbid obesity, which complicates care. 8. The patient has insulin dependent diabetes, which is well controlled for the current setting. 9. The patient denies ongoing depression, likely has some cognitive impairment. He is declining psychiatric consultation.
[2016-12-02 14:00] VITALS: BP_SYST 125; BP_SYST 139; BP_DIAS 64; BP_DIAS 77
[2016-12-02 20:35] VITALS: BP 105/65
[2016-12-03] MEDS: SLF 3 ML SYR IV SCH ×3 (05:14→21:19)
[2016-12-03] MEDS: HEPARIN SOD (PORCINE) 5000 UNITS/ML VIAL SQ SCH ×3 (05:14→21:19)
[2016-12-03 05:15] VITALS: BP 115/63
[2016-12-03 06:29] LABS: MEAN CORPUSCULAR HEMOGLOBIN 27.4 pg (27.0-33.0); MEAN CORPUSCULAR HGB CONC 31.7 g/dl (32.0-36.5); MEAN CORPUSCULAR VOLUME 86.5 fl (80.0-96.0); RED CELL DISTRIBUTION WIDTH 17.1 % (11.5-14.5); WHITE BLOOD COUNT 6.6 10^3/uL (4.0-10.0)
[2016-12-03 06:49] LABS: CALCIUM LEVEL 9.3 MG/DL (8.8-10.2); CREATININE FOR GFR 3.82 MG/DL (0.70-1.30); GLOMERULAR FILTRATION RATE 17.1 (>49); MAGNESIUM LEVEL 2.2 MG/DL (1.8-2.4)
[2016-12-03] MEDS: HumaLOG INSULIN (NovoLOG) PER UNIT SC SCH ×3 (07:30→17:51)
[2016-12-03] MEDS: ATORVASTATIN 20 MG TAB PO SCH (10:05)
[2016-12-03] MEDS: SPIRONOLACTONE 25 MG TAB PO SCH (10:06)
[2016-12-03] MEDS: SERTRALINE HCL 25 MG TABLET PO SCH (10:06)
[2016-12-03] MEDS: ASPIRIN 81 MG ENTERIC TAB PO SCH (10:06)
[2016-12-03] MEDS: CARVedilol 3.125 MG TAB PO SCH ×2 (10:06→21:20)
[2016-12-03 14:00] VITALS: BP 107/63
--- NOTE | 2016-12-03 21:24 | IPN ---
DATE: 12/03/2016 Mr. Weber is awake and interactive this morning. He has not had breakfast at the time of my evaluation. No complaints of pain, chest pain, shortness of breath. PHYSICAL EXAMINATION: VITAL SIGNS: Temperature is 98.3, pulse 68, respiratory rate 18, blood pressure 115/63, 94% on room air. Input and output notable for a negative fluid balance of 2140, two bowel movements noted. He is awake, pleasantly interactive today and is agreeable to taking medications. Somewhat flattened affect. Mucous membranes are moist. Neck is supple, thick. Breathing is symmetrical. Heart is distant sounding. Abdomen is soft, doughy, nontender. White cell count 6.6, hemoglobin 11.6, platelets of 159. BUN 19, creatinine 3.8. ASSESSMENT: This is a 61-year-old with multiple medical issues, recent cerebrovascular accident (CVA) and chronic endstage renal disease on hemodialysis. PLAN: 1. Hemodialysis. The patient is being followed by Dr. Stark. I greatly appreciate his assistance on the care. The patient will likely benefit from a supervised setting at the time of discharge. 2. The patient has an acute CVA with left-side hemiparesis. He is compliant with his medical therapy today. 3. The patient has had nonsustained ventricular tachycardia during his stay. He has an automatic implantable cardioverter-defibrillator (AICD). 4. The patient has coronary artery disease status post coronary artery bypass graft (CABG). 5. The patient has a history of systolic dysfunction. 6. The patient has hypertension. 7. The patient has morbid obesity, which complicates care. 8. The patient has insulin dependent diabetes, which is reasonably well controlled for the current setting. 9. I am suspicious for the possibility of depression, although perhaps it is only adjustment disorder. The patient may have some cognitive impairment. He is accepting of medical therapy today.
--- NOTE | 2016-12-03 21:37 | IPN ---
DATE: 12/03/2016 SUBJECTIVE: MR. Weber is seen this morning on his bedside. He is lying in the bed without any acute distress. He reports that he did not eat breakfast this morning. He has been refusing medications and physical therapy. His speech remains slurred due to recent stroke. The patient denies any dyspnea, chest pain, nausea or vomiting. PHYSICAL EXAMINATION: VITAL SIGNS: Temperature 98.3 degrees Fahrenheit, heart rate 70 per minute and respiratory rate 18 per minute. Blood pressure 115/63 mmHg and oxygen saturation between 94% and 100% on room air. HEAD/NECK: His head is atraumatic. Neck is supple without jugular venous distention (JVD) or thyroid enlargement. The facial rash has almost completely resolved. CARDIORESPIRATORY: Heart sounds are regular and lungs clear to auscultation with poor inspiratory effort. ABDOMEN: Soft and nontender and without a palpable organomegaly. Bowel sounds are normal. EXTREMITIES: Have no cyanosis or clubbing. Right forearm arteriovenous (AV) fistula is patent. NEUROLOGIC: He is awake, alert and oriented times three. His speech remains slurred. LABORATORY DATA: Today's labs show WBC count 6.6, hemoglobin 11.6 and hematocrit 36.6. Sodium 139 and potassium 4.0. BUN 19 and creatinine 3.82. PROBLEMS: 1. End-stage renal disease. The patient was dialyzed yesterday. His electrolytes are normal and volume status is well-compensated. His next dialysis will be scheduled for Monday. 2. Hypertension. Blood pressure has been very well controlled. The patient will continue with current medications. He has been refusing most of his medications. 3. Anemia. His anemia has been stable and no intervention is indicated. 4. Recent stroke. The patient remains mostly bedridden. His speech is still slurred. He has been refusing physical therapy. He does have history of noncompliance even prior to this hospitalization. 5. Disposition: The patient is likely to require long-term fpc placement.
[2016-12-03 22:00] VITALS: BP 115/67
[2016-12-04] MEDS: HEPARIN SOD (PORCINE) 5000 UNITS/ML VIAL SQ SCH ×4 (05:41→21:39)
[2016-12-04] MEDS: SLF 3 ML SYR IV SCH ×3 (05:41→21:36)
[2016-12-04 06:00] VITALS: BP 133/78
[2016-12-04 06:46] LABS: MEAN CORPUSCULAR HGB CONC 30.9 g/dl (32.0-36.5); MEAN CORPUSCULAR VOLUME 87.3 fl (80.0-96.0); RED CELL DISTRIBUTION WIDTH 17.2 % (11.5-14.5); WHITE BLOOD COUNT 6.6 10^3/uL (4.0-10.0)
[2016-12-04 07:02] LABS: CREATININE FOR GFR 4.8 MG/DL (0.70-1.30); GLOMERULAR FILTRATION RATE 13.1 (>49); MAGNESIUM LEVEL 2.1 MG/DL (1.8-2.4); POTASSIUM SERUM 4.2 MEQ/L (3.5-5.1)
[2016-12-04] MEDS: HumaLOG INSULIN (NovoLOG) PER UNIT SC SCH ×3 (07:04→18:28)
[2016-12-04] MEDS: ATORVASTATIN 20 MG TAB PO SCH (10:50)
[2016-12-04] MEDS: CARVedilol 3.125 MG TAB PO SCH ×2 (10:50→21:35)
[2016-12-04] MEDS: SERTRALINE HCL 25 MG TABLET PO SCH (10:50)
[2016-12-04] MEDS: SPIRONOLACTONE 25 MG TAB PO SCH (10:50)
[2016-12-04] MEDS: ASPIRIN 81 MG ENTERIC TAB PO SCH (10:50)
[2016-12-04 14:00] VITALS: BP 119/69
--- NOTE | 2016-12-04 18:23 | IPN ---
DATE: 12/04/2016 SUBJECTIVE: Mr. Weber is seen this afternoon on his bedside. He is lying in the bed watching TV. He did not eat much out of his lunch tray. He denies any nausea, vomiting or abdominal pain but reports poor appetite. His speech remains slurred. There is no dyspnea, chest pain, fever or chills. PHYSICAL EXAMINATION: VITAL SIGNS: Temperature 97.5 degrees Fahrenheit, heart rate 68 per minute and respiratory rate 18 per minute. Blood pressure 133/78 mmHg and oxygen saturation 95% on room air. HEAD/NECK: Head is atraumatic. Neck is supple and without jugular venous distention (JVD) or thyroid enlargement. Trachea is midline. CARDIORESPIRATORY: Heart sounds are regular and lungs clear to auscultation. ABDOMEN: Soft and nontender and without a palpable organomegaly. Bowel sounds are normal. EXTREMITIES: Have no cyanosis or clubbing. NEUROLOGIC: He has slurred speech but no other obvious focal deficit. SKIN: Rash on his face has almost completely resolved. LABORATORY DATA: Today's labs show WBC count 6.6, hemoglobin 11.5 and hematocrit 37.2. Platelets 153. Sodium 138 and potassium 4.2. BUN 24 and creatinine 4.8. PROBLEMS: 1. End-stage renal disease. The patient is now going to be dialyzed on Monday, Monday and Monday schedule. We will schedule his next dialysis for tomorrow. 2. Hypertension. Blood pressure is very well controlled on current antihypertensive medications which will be continued. 3. Anemia. His anemia is mild and stable and does not need any intervention at this point. 4. Nutrition. The patient does not eat much. I am going to add Nepro one can daily. I would suggest to get a dietary consult and possible calorie count. DISPOSITION: Patient is likely to require long-term longterm placement due to his inability to care for self.
--- NOTE | 2016-12-04 21:03 | IPN ---
DATE: 12/04/2016 Mr. Weber is more awake, interactive and conversant today. Says he is looking forward to getting out the hospital and wants to know what he has to do to leave. Temperature is 97.5, pulse 67, respiratory rate 20, blood pressure 133/78, 95% on room air. Input and output notable for a positive fluid balance of 415, two bowel movements yesterday. He is awake, appropriately interactive, pleasantly conversant. Somewhat flattened affect. Mucous membranes tachy. Neck supple, thick. Breathing is symmetrical. I-to-E ratio is 1:3. Heart is distant sounding. Abdomen is soft, doughy, nontender. White cell count 6.6, hemoglobin 11.5, platelets of 153. BUN 24, creatinine 4.8. My assessment is as follows: This is a 61-year-old with multiple medical issues, recent cerebrovascular accident (CVA) and chronic endstage renal disease on hemodialysis. Plan is as follows: 1. Hemodialysis. The patient is being followed by Dr. Stark. He has been noncompliant with dialysis as an outpatient. Would likely benefit from a supervised setting. 2. Patient has had acute CVA approximately a week ago with left-side hemiparesis status post tPA. He is again compliant with his medical therapies today. 3. The patient has had nonsustained ventricular tachycardia during his stay. He has an automatic implantable cardioverter-defibrillator (AICD). 4. The patient has coronary artery disease status post coronary artery bypass graft (CABG). 5. The patient has a history of systolic dysfunction, appears to be compensated. 6. The patient has hypertension. 7. The patient has morbid obesity, which complicates care. 8. The patient has insulin dependent diabetes, which is reasonably well controlled for the current setting. 9. Patient denies depression.
[2016-12-04 22:00] VITALS: BP 120/79
[2016-12-05] MEDS: SLF 3 ML SYR IV SCH ×3 (05:14→21:30)
[2016-12-05] MEDS: HEPARIN SOD (PORCINE) 5000 UNITS/ML VIAL SQ SCH ×3 (05:14→21:30)
[2016-12-05 06:00] VITALS: BP 122/75
[2016-12-05 06:34] LABS: MEAN CORPUSCULAR HEMOGLOBIN 27.6 pg (27.0-33.0); MEAN CORPUSCULAR HGB CONC 31.4 g/dl (32.0-36.5); MEAN CORPUSCULAR VOLUME 87.9 fl (80.0-96.0); WHITE BLOOD COUNT 6.5 10^3/uL (4.0-10.0)
[2016-12-05] MEDS: HumaLOG INSULIN (NovoLOG) PER UNIT SC SCH ×3 (07:30→17:07)
[2016-12-05] MEDS: CARVedilol 3.125 MG TAB PO SCH ×2 (09:00→21:31)
[2016-12-05] MEDS: ATORVASTATIN 20 MG TAB PO SCH (09:00)
[2016-12-05] MEDS: ASPIRIN 81 MG ENTERIC TAB PO SCH (09:00)
[2016-12-05] MEDS: SERTRALINE HCL 25 MG TABLET PO SCH (09:00)
[2016-12-05] MEDS: SPIRONOLACTONE 25 MG TAB PO SCH (09:00)
--- NOTE | 2016-12-05 12:29 | IPN ---
DATE OF VISIT: 12/05/2016 Mr. Weber is seen this morning on his bedside during hemodialysis. He has no specific complaints. There is no dyspnea, chest pain, fever, chills, nausea or vomiting. His oral intake has been poor and he does have some weight loss since admission. Today, he weighed 94 kg while on admission his weight was reported at 113.6 kg. On physical exam, temperature 96.6 degrees Fahrenheit, heart rate 65 per minute and respiratory rate 15 per minute. Blood pressure 122/75 mmHg and oxygen saturation 95% on room air. Head is atraumatic. Neck is supple and without jugular venous distention (JVD) or thyroid enlargement. Ears, nose and throat are unremarkable. Heart sounds are regular and lungs clear to auscultation. Abdomen soft and nontender and without a palpable organomegaly. Bowel sounds are normal. Extremities have no cyanosis or clubbing. Skin has no rash or ulcers. Neurologically he is awake, alert and oriented times three. His speech remains slurred. Today's labs show WBC count 6.5, hemoglobin 11.8 and hematocrit 37.6. Platelets 152. He did not have any chemistry today. PROBLEMS: 1. End-stage renal disease. Patient is being dialyzed today and he is tolerating dialysis treatment very well. His volume status is well-compensated and electrolytes have been within normal range. 2. Hypertension. Blood pressure has been very well controlled on current antihypertensive medications and no changes are being made today. 3. Anemia. His anemia is very mild and stable. No intervention is indicated at this point. 4. Recent stroke. Patient remains mostly bed-bound. His speech is still slightly slurred. He has been refusing to participate with physical therapy and rehabilitation.
[2016-12-05] MEDS ORDERED: HEPARIN 1,000 UNITS/ML 10ML VIAL (FOR RADIOLOGY& DIALYSIS ONLY) IV ONE (12:45)
[2016-12-05 14:00] VITALS: BP 115/61
--- NOTE | 2016-12-05 15:26 | IPN ---
DATE: 12/05/2016 Mr. Weber has no complaints today. No chest pain. No shortness of breath. He would like to eventually go home. Temperature is 96.6, pulse 65, respiratory rate 15, blood pressure 122/75, 95% on room air. Intake and output notable for a positive fluid balance of 710, seven bowel movements recorded yesterday, although there are none since midnight today. He is awake, appropriately interactive, pleasantly conversant, somewhat flattened affect. Mucous membranes are moist. Neck thick. Breathing is symmetrical, diminished. Heart is distant sounding. White cell count 6.5, hemoglobin 11.8, and platelets of 152. There is no basic metabolic panel (BMP) today. My assessment is as follows: This is 61-year-old with multiple medical issues, recent CVA which happened in hospital for which he received tissue plasminogen activator (tPA), and chronic end-stage renal disease on hemodialysis. Plan is as follows: 1. Hemodialysis. The patient is being followed by Dr. Stark in the renal service. He has been noncompliant with dialysis in the outpatient. We had previously arranged for transport for him for dialysis which did not help significantly with compliance. He may benefit from a supervised setting. 2. The patient had acute CVA slightly over a week ago for which he received tissue plasminogen activator (tPA). He is minimally interactive with staff and is not engaged in his physical recovery. We did discuss this in person. 3. The patient had nonsustained ventricular tachycardia during his stay. He has an automatic implantable cardioverter defibrillator (AICD). The episodes of nonsustained ventricular tachycardia were asymptomatic. 4. The patient has coronary artery disease status post coronary artery bypass graft (CABG). 5. The patient has history of systolic dysfunction, appears compensated. 6. The patient has hypertension. 7. The patient has morbid obesity which complicates care. 8. The patient has insulin-dependent diabetes which is reasonably well controlled with the current setting. 9. I had been concerned about the possibility of depression in this patient. His mood seems to be have improved in the last few days. He has declined psychiatric consultation.
[2016-12-05 22:00] VITALS: BP 110/72
[2016-12-06] MEDS: HEPARIN SOD (PORCINE) 5000 UNITS/ML VIAL SQ SCH ×3 (05:13→21:23)
[2016-12-06] MEDS: SLF 3 ML SYR IV SCH ×3 (05:13→21:23)
[2016-12-06 06:00] VITALS: BP 116/74
[2016-12-06 06:15] LABS: MEAN CORPUSCULAR HEMOGLOBIN 27.6 pg (27.0-33.0); MEAN CORPUSCULAR VOLUME 86.3 fl (80.0-96.0); WHITE BLOOD COUNT 7.5 10^3/uL (4.0-10.0)
[2016-12-06] MEDS: HumaLOG INSULIN (NovoLOG) PER UNIT SC SCH ×3 (09:00→18:16)
[2016-12-06] MEDS: SPIRONOLACTONE 25 MG TAB PO SCH (10:25)
[2016-12-06] MEDS: SERTRALINE HCL 25 MG TABLET PO SCH (10:25)
[2016-12-06] MEDS: ATORVASTATIN 20 MG TAB PO SCH (10:25)
[2016-12-06] MEDS: ASPIRIN 81 MG ENTERIC TAB PO SCH (10:25)
[2016-12-06] MEDS: CARVedilol 3.125 MG TAB PO SCH ×2 (10:26→21:24)
[2016-12-06 14:00] VITALS: BP 102/65
--- NOTE | 2016-12-06 19:15 | IPN ---
DATE: 12/06/2016 Mr. Weber is seen this morning on his bedside. He has no specific complaints but remains very weak. He has been previously refusing to participate with physical therapy. He reports that he did not eat breakfast this morning. He denies any nausea, vomiting, dyspnea or chest pain. PHYSICAL EXAMINATION: Temperature 98.9 degrees Fahrenheit, heart rate 72 per minute and respiratory rate 18 per minute. Blood pressure 116/74 mmHg and oxygen saturation 95% on room air. Head: Is atraumatic. Ears, nose and throat are unremarkable. Neck: is supple and without JVD or thyroid enlargement. Heart: Sounds are regular with systolic murmur grade 2/6. There is no pericardial friction rub. Lungs: Clear to auscultation bilaterally. Abdomen: Soft and nontender and without a palpable organomegaly. Bowel sounds are normal. Extremities: Have no cyanosis or clubbing. Right forearm AV fistula is patent. Neurologically: He is awake, alert and oriented times three. His speech remains slightly slurred. Today's labs include a CBC with WBC count 7.5, hemoglobin 11.7 and hematocrit 36.6. He did not have any chemistry today. PROBLEMS: 1. End-stage renal disease. The patient was dialyzed yesterday which is his regular dialysis day. He will be scheduled for next hemodialysis on December 07. 2. Hypertension. Blood pressure is very well controlled on current antihypertensive medications. 3. Anemia. His anemia is mild and stable and does not need any intervention. 4. Diabetes. Diabetes is also well controlled and no intervention is indicated. 5. The patient remains weak and mostly bed-bound. He has been previously declining to participate with physical therapy. Now I have discussed with him again and he is willing to attempt physical therapy. We will ask the physical therapist to come and evaluate him again. DISPOSITION: In my opinion the patient needs long-term prison placement due to his inability to care for self at home.
--- NOTE | 2016-12-06 19:18 | IPNPDOC ---
Subjective Date Seen The patient was seen on 12/06/16. Subjective Chief Complaint/HPI The patient is a 61-year-old male admitted with a reason for visit of Chf, Esrd On Dialysis. Events since last encounter Patient is lying down in bed on exam. States that he did not take medications yesterday. He mentioned that the one medication that is injected it makes him have loose stools. Last had some loose stools on Monday night. Discussed that it is important to take medications. That the medication most likely did not cause it and can still take his oral medications. Has refused to work with PT in the past. Agreed to work with them today. Constitutional: Denies: Chills, Fever ENT: Denies: Head Aches Pulmonary: Denies: Dyspnea Cardiovascular: Denies: Chest Pain Objective Physical Examination General Exam: Positive: Alert, Moderate Distress Eye Exam: Positive: PERRLA, Conjunctiva & lids normal, EOMI, Negative: Sclera icteric Neck Exam: Positive: Supple, JVD, Negative: thyromegaly Chest Exam: Positive: Diminished Heart Exam: Positive: Rate Normal, Regular Rhythm, Normal S1, Normal S2, Negative: Murmurs, Rubs Telemetry: Positive: No significant arrhythmia Abdomen Exam: Positive: Normal bowel sounds, Soft, Negative: Tenderness, Hepatospenomegaly Extremity Exam: Positive: Normal pulses Skin Exam: Positive: Nl turgor and temperature Neuro Exam: Positive: Strength at 5/5 X4 ext (upper and lower extremities) Psych Exam: Positive: Mental status NL Assessment /Plan Assessment 1. ESRD, dialysis Patient is ESRD and is on dialysis. Last had the other day. Nephrology consulted , appreciate their assistance in management of this patient. Continue nephro diet. 2. History of acute CVA Occurred while in hospital. On Atorvastatin and Aspirin. Did not participate in PT previously. Discussed and he would like to try again. Reconsulted PT and will encourage participation. 3. Coronary artery disease Continue Atorvastatin and Aspirin. 4. CHF, systolic On carvedilol and spironolactone. Monitor fluid status and edema. 5. Anemia Stable hemoglobin. Repeat in morning. 6. HTN Continue on carvedilol and spironolactone. Monitor BP. 7. Diabetes, type 2 Continue insulin. Monitor glucose. 8. DVT prophylaxis Patient has been refusing subq heparin. Encourage ambulation. Plan/VTE VTE Prophylaxis Ordered?: Yes Plan IVF: Discontinue Diet: Continue Current Activity: Continue Current Therapy: PT, OT Medications: Replete Electrolytes IV Diagnostics: Repeat Labs in AM, TTE Anticipated Discharge: Home With Services, Sub Acute Rehab VS, I&O, 24H, Fishbone Vital Signs/I&O Vital Signs Date Time Temp Pulse Resp B/P (MAP) Pulse Ox O2 Delivery O2 Flow Rate FiO2 12/06/16 06:00 98.9 73 17 116/74 (88) 95 Room Air Laboratory Data 24H LABS Laboratory Tests 2 12/05/16 14:08: Bedside Glucose (Misc Panel) 97 12/05/16 16:46: Bedside Glucose (Misc Panel) 135H 12/05/16 20:48: Bedside Glucose (Misc Panel) 159H 12/06/16 05:54: Nucleated Red Blood Cells % (auto) 0.0 CBC/BMP Laboratory Tests 12/06/16 05:54 Red Blood Count 4.24 L, Mean Corpuscular Volume 86.3, Mean Corpuscular Hemoglobin 27.6, Mean Corpuscular Hemoglobin Concent 32.0, Red Cell Distribution Width 17.0 H GME ATTESTATION GME ATTESTATION My preceptor for this patient encounter was physically present in the building during the encounter and was fully available. As needed, all aspects of the patient interview, examination, medical decision making process, and medical care plan development were reviewed and approved by the preceptor. Preceptor is aware and concurs with the plan as stated in the body of this note and will attest to such by his/her cosignature. NORRIS GARCIA DO Dec 06, 2016 08:29
[2016-12-06 22:00] VITALS: BP 111/72
[2016-12-07] MEDS: HEPARIN SOD (PORCINE) 5000 UNITS/ML VIAL SQ SCH ×3 (05:09→21:25)
[2016-12-07] MEDS: SLF 3 ML SYR IV SCH ×3 (05:09→21:32)
[2016-12-07 06:00] VITALS: BP 125/76
[2016-12-07] MEDS: SERTRALINE HCL 25 MG TABLET PO SCH (06:05)
[2016-12-07] MEDS: SPIRONOLACTONE 25 MG TAB PO SCH (06:05)
[2016-12-07] MEDS: ASPIRIN 81 MG ENTERIC TAB PO SCH (06:05)
[2016-12-07] MEDS: ATORVASTATIN 20 MG TAB PO SCH (06:05)
[2016-12-07] MEDS: HumaLOG INSULIN (NovoLOG) PER UNIT SC SCH ×3 (08:14→17:52)
[2016-12-07] MEDS: CARVedilol 3.125 MG TAB PO SCH ×2 (08:15→21:28)
--- NOTE | 2016-12-07 10:47 | IPNPDOC ---
Text Note Date of Service The patient was seen on 12/07/16. NOTE Subjective: Patient seen and examined at bedside. No new medical complaints. He was encouraged to participate with physical therapy. Objective: General: NAD HEENT: NC/AT Lungs: CTA B/L Heart: systolic murmur Abd: soft, NT, +BS Ext: RLE AV fistula PROBLEMS: 1. ESRD - plan for dialysis today - follow as per nephrology - assistance appreciated 2. HTN - stable - continue with current medications 3. Anemia - stable 4. Diabetes - well controlled 5. Generalized deconditioning - continue with PT 6. DVT prophylaxis DISPO - will need PT and placement VS,Fishbone, I+O VS, Fishbone, I+O Vital Signs Date Time Temp Pulse Resp B/P (MAP) Pulse Ox O2 Delivery O2 Flow Rate FiO2 12/07/16 08:15 74 124/80 12/07/16 06:00 97.2 18 97 Room Air I&O- Last 24 Hours up to 6 AM 12/08/16 06:00 Intake Total 120 ml Output Total 0 ml Balance 120 ml NORRIS TRIPLETT MD Dec 07, 2016 10:47
[2016-12-07] MEDS ORDERED: HEPARIN 1,000 UNITS/ML 10ML VIAL (FOR RADIOLOGY& DIALYSIS ONLY) IV ONE (11:00)
--- NOTE | 2016-12-07 12:29 | IPN ---
DATE: 12/07/2016 Mr. Weber is seen this morning during hemodialysis on his bedside. He is lying comfortably in the bed without any distress. Patient denies any dyspnea, chest pain, nausea, vomiting, fever or chills. He remains weak and mostly bed-bound. On physical exam, temperature 97.2 degrees Fahrenheit, heart rate 72 per minute and respiratory rate 18 per minute. Blood pressure 125/76 mmHg and oxygen saturation 97% on room air. Head is atraumatic. Neck is supple and without jugular venous distention (JVD) or thyroid enlargement. Ears, nose and throat are unremarkable. Heart sounds are regular and lungs clear to auscultation. Abdomen soft and nontender and without any palpable organomegaly. Bowel sounds are normal. Extremities have no cyanosis or clubbing. Skin has no rash or ulcers. Neurologically, he is awake, alert and oriented times three. His speech is slightly slurred and seems improved since last week. His labs from yesterday showed a hemoglobin of 11.7 and hematocrit 36.6. His chemistry was last done on 12/04/2016 and it was appropriate for end-stage renal disease. No recent labs have been done. PROBLEMS: 1. End-stage renal disease. Patient is being dialyzed today and he is tolerating dialysis treatment well. We will remove about 2 liters of fluid as tolerated. 2. Hypertension. Blood pressure is very well controlled on minimal antihypertensive medications. No changes are needed at this point. 3. Anemia. His anemia is very mild and stable. No intervention is indicated at this point. 4. Diabetes. Patient is not eating much and his diabetes has been well controlled. 5. Nutrition. I have encouraged the patient to increase his dietary intake. He has not been eating very well. I will order a prealbumin along with a renal profile for tomorrow. DISPOSITION: Patient has not been able to take care of himself and I strongly recommend a long-term senior living placement.
[2016-12-07 14:00] VITALS: BP 122/78
[2016-12-07 22:00] VITALS: BP 107/71
[2016-12-08] MEDS: SLF 3 ML SYR IV SCH ×3 (04:34→20:25)
[2016-12-08] MEDS: HEPARIN SOD (PORCINE) 5000 UNITS/ML VIAL SQ SCH ×3 (05:11→20:25)
[2016-12-08 06:00] VITALS: BP 123/77
[2016-12-08 07:02] LABS: ALBUMIN 3.3 GM/DL (3.2-5.2); CALCIUM LEVEL 9.2 MG/DL (8.8-10.2); CREATININE FOR GFR 4.02 MG/DL (0.70-1.30); GLOMERULAR FILTRATION RATE 16.1 (>49); PHOSPHORUS LEVEL 2.3 MG/DL (2.5-4.9); POTASSIUM SERUM 4.1 MEQ/L (3.5-5.1)
[2016-12-08] MEDS: ASPIRIN 81 MG ENTERIC TAB PO SCH (08:30)
[2016-12-08] MEDS: SERTRALINE HCL 25 MG TABLET PO SCH (08:30)
[2016-12-08] MEDS: HumaLOG INSULIN (NovoLOG) PER UNIT SC SCH ×3 (08:30→18:04)
[2016-12-08] MEDS: CARVedilol 3.125 MG TAB PO SCH ×2 (08:31→20:24)
[2016-12-08] MEDS: SPIRONOLACTONE 25 MG TAB PO SCH (08:31)
[2016-12-08] MEDS: ATORVASTATIN 20 MG TAB PO SCH (08:31)
--- NOTE | 2016-12-08 11:10 | IPN ---
DATE OF VISIT: 12/08/2016 Mr. Weber is seen this morning on his bedside. He is in better spirits today and feels well. He reports that he walked with the physical therapist yesterday in the hallway. He denies any nausea, vomiting, dyspnea, chest pain, fever or chills. On physical exam, temperature 98.2 degrees Fahrenheit, heart rate 74 per minute and respiratory rate 18 per minute. Blood pressure 123/77 mmHg and oxygen saturation 99% on room air. Head is atraumatic. Neck is supple and without jugular venous distention (JVD) or thyroid enlargement. Ears, nose and throat are unremarkable. Heart sounds regular and lungs clear to auscultation. Abdomen soft and nontender. Bowel sounds are normal. There is no palpable organomegaly. Extremities have no cyanosis or clubbing. Neurologically he is awake, alert and oriented times three. Slurred speech has improved slightly. Skin has no rash or ulcers. PROBLEMS: 1. End-stage renal disease. Patient underwent hemodialysis yesterday. His next dialysis will be scheduled for tomorrow. At this point, there is no indication for urgent dialysis today. Electrolytes have been stable and volume status is well-compensated. 2. Hypertension. Blood pressure control is optimal at this point. Current antihypertensives will be continued. 3. Anemia. He does have history of mild anemia, which has been stable and does not need any intervention. We will check his complete blood count (CBC) again tomorrow morning. 4. Weakness with recent stroke. Patient has started to participate with physical therapy. Remains to be seen how he does. DISPOSITION: Patient has been doing poorly, even prior to the stroke. He has not been able to take care of himself and noncompliance has been a major issue. skilled nursing placement is likely his best option.
--- NOTE | 2016-12-08 14:35 | IPNPDOC ---
Subjective Date Seen The patient was seen on 12/08/16. Subjective Chief Complaint/HPI The patient is a 61-year-old male admitted with a reason for visit of Chf, Esrd On Dialysis. Events since last encounter Patient is sitting in bed. Cooperative with questions. Has no concerns or complaints today. States that dialysis went well yesterday. Does not have much of an appetite. Just does not want to eat much. Denies painful swallowing, difficulty swallowing, nausea, abdominal pain and vomiting. Feels more at baseline. Constitutional: Denies: Chills, Fever Eyes: Denies: Pain ENT: Denies: Head Aches Cardiovascular: Denies: Chest Pain Gastrointestinal: Denies: Abdominal Pain Objective Physical Examination General Exam: Positive: Alert, No Acute Distress Eye Exam: Positive: PERRLA, EOMI, Negative: Sclera icteric Neck Exam: Positive: Supple, JVD Chest Exam: Positive: Clear to auscultation, Negative: Rales, Wheezing Heart Exam: Positive: Rate Normal, Regular Rhythm, Normal S1, Normal S2, Negative: Murmurs, Rubs Telemetry: Positive: No significant arrhythmia Abdomen Exam: Positive: Normal bowel sounds, Soft, Other (Round.), Negative: Tenderness, Hepatospenomegaly Extremity Exam: Positive: Normal pulses Skin Exam: Positive: Nl turgor and temperature Psych Exam: Positive: Mental status NL Assessment /Plan Assessment 1. End Stage Renal Disease Continue with dialysis. Last received yesterday. Next day for dialysis is Monday. Dr. Stark has been consulted, appreciate his assistance in management of this patient. 2. Deconditioning Continue to work physical therapy. Compliant with them yesterday. 3. Noncompliance Patient took medications today. Cooperative today. Encourage compliance with medications and physical therapy. Need to continue for discharge. 4. Hypertension Continue with current medications. 5. Anemia Stable H+H today. Chronic. Continue to monitor. 6. Diabetes Continue to monitor glucose, especially if patient is not eating as much. Hypoglycemia protocol. Continue current sliding scale. Plan/VTE VTE Prophylaxis Ordered?: Yes Plan Diagnostics: Repeat Labs in AM Disposition Patient is participating in physical therapy. Will continue to work with PT. Continue with dialysis as regularly scheduled. VS, I&O, 24H, Fishbone Vital Signs/I&O Vital Signs Date Time Temp Pulse Resp B/P (MAP) Pulse Ox O2 Delivery O2 Flow Rate FiO2 10/19/17 08:31 123/77 12/08/16 06:00 98.2 74 18 99 Room Air I&O- Last 24 Hours up to 6 AM 12/09/16 06:00 Intake Total 0 ml Output Total 0 ml Balance 0 ml Laboratory Data 24H LABS Laboratory Tests 2 12/07/16 16:49: Bedside Glucose (Misc Panel) 111 12/08/16 06:25: Blood Urea Nitrogen 16, Creatinine 4.02H, Sodium Level 137, Potassium Level 4.1 , Chloride Level 101, Carbon Dioxide Level 29, Anion Gap 7L, Glomerular Filtration Rate 16.1L, Calcium Level 9.2, Phosphorus Level 2.3L, Albumin 3.3, Prealbumin 13.3L CBC/BMP Laboratory Tests 12/08/16 06:25 Anion Gap 7 L GME ATTESTATION GME ATTESTATION My preceptor for this patient encounter was physically present in the building during the encounter and was fully available. As needed, all aspects of the patient interview, examination, medical decision making process, and medical care plan development were reviewed and approved by the preceptor. Preceptor is aware and concurs with the plan as stated in the body of this note and will attest to such by his/her cosignature. NORRIS GARCIA DO Dec 08, 2016 10:31
[2016-12-08 22:00] VITALS: BP 111/71
[2016-12-09] MEDS: SLF 3 ML SYR IV SCH ×3 (05:16→22:05)
[2016-12-09] MEDS: HEPARIN SOD (PORCINE) 5000 UNITS/ML VIAL SQ SCH ×3 (05:16→22:05)
[2016-12-09 06:00] VITALS: BP 122/73
[2016-12-09] MEDS: ASPIRIN 81 MG ENTERIC TAB PO SCH (06:36)
[2016-12-09] MEDS: CARVedilol 3.125 MG TAB PO SCH ×3 (06:36→20:43)
[2016-12-09] MEDS: SERTRALINE HCL 25 MG TABLET PO SCH (06:37)
[2016-12-09] MEDS: ATORVASTATIN 20 MG TAB PO SCH (06:37)
[2016-12-09] MEDS: SPIRONOLACTONE 25 MG TAB PO SCH (06:37)
[2016-12-09 07:23] LABS: MEAN CORPUSCULAR HEMOGLOBIN 27.4 pg (27.0-33.0); MEAN CORPUSCULAR HGB CONC 31.8 g/dl (32.0-36.5); MEAN CORPUSCULAR VOLUME 86.1 fl (80.0-96.0); PLATELET COUNT, AUTOMATED 163 10^3/uL (150-450); RED CELL DISTRIBUTION WIDTH 16.4 % (11.5-14.5); WHITE BLOOD COUNT 6.3 10^3/uL (4.0-10.0)
[2016-12-09] MEDS: HumaLOG INSULIN (NovoLOG) PER UNIT SC SCH ×3 (07:30→17:30)
[2016-12-09 07:52] LABS: ALBUMIN 3.2 GM/DL (3.2-5.2); CALCIUM LEVEL 9.3 MG/DL (8.8-10.2); CREATININE FOR GFR 5.27 MG/DL (0.70-1.30); GLOMERULAR FILTRATION RATE 11.8 (>49); PHOSPHORUS LEVEL 2.7 MG/DL (2.5-4.9); POTASSIUM SERUM 4.1 MEQ/L (3.5-5.1)
--- NOTE | 2016-12-09 11:55 | IPN ---
DATE: 12/09/2016 Mr. Weber was seen this morning during hemodialysis. He remains mostly bed-bound. He did walk with physical therapist for a short distance. He is not a very motivated person. He denies any nausea, vomiting, dyspnea or chest pain. There is no fever or chills. He is not eating much and nutrition is getting worse. PHYSICAL EXAMINATION: Temperature 97.5 degrees Fahrenheit, heart rate 55 per minute and respiratory rate 18 per minute. Blood pressure 122/76 mmHg and oxygen saturation 96% on room air. Head is atraumatic. Neck is supple and without JVD or thyroid enlargement. Heart sounds regular and lungs clear to auscultation. Abdomen is soft and nontender. Bowel sounds are normal. Extremities have no cyanosis or clubbing. Skin has no rash or ulcers. Neurologically he is at about baseline mentation. He does have slightly slurred speech due to recent stroke. Today's labs show WBC count 6.3, hemoglobin 11.4 and hematocrit 35.8. Platelets 163. Sodium 138 and potassium 4.1. BUN is only 25 and creatinine 5.27. Calcium 9.3 and phosphorus 2.7. Serum albumin is 3.2. His pre-albumin was 13.3 yesterday. PROBLEMS: 1. End-stage renal disease: The patient is being dialyzed today. He is very well dialyzed with normal electrolytes and well compensated volume status. His next dialysis will be scheduled for Monday. 2. Hypertension: Blood pressure has been well controlled and will continue with current antihypertensive medications. 3. Anemia: This is mild and stable. No intervention is indicated at this point. 4. Malnutrition: The patient is not eating very well. I have added Nepro 1 can daily, however, his protein intake remains very poor. I am not sure if it is related to his recent stroke or depression. 5. Stroke: The patient remains weak and bed-bound. Physical therapy has been ordered. Initially, he was refusing however did participate at times recently. We will continue to encourage him to work with physical therapist. He is likely to require long-term jail placement.
[2016-12-09] MEDS ORDERED: HEPARIN 1,000 UNITS/ML 10ML VIAL (FOR RADIOLOGY& DIALYSIS ONLY) IV ONE (13:00)
[2016-12-09 14:16] VITALS: BP 123/74
--- NOTE | 2016-12-09 17:06 | IPNPDOC ---
Subjective Date Seen The patient was seen on 12/09/16. Subjective Chief Complaint/HPI The patient is a 61-year-old male admitted with a reason for visit of Chf, Esrd On Dialysis. Events since last encounter Patient had dialysis today. No complaints. Has no chest pain, abdominal pain. Tolerating oral intake. Encouraging patient to sit up more and work with physical therapy. Compliant with medications. Constitutional: Denies: Chills, Fever Pulmonary: Denies: Dyspnea Cardiovascular: Denies: Chest Pain, Palpitations Gastrointestinal: Denies: Nausea, Vomiting, Abdominal Pain Musculoskeletal: Denies: Neck Pain, Back Pain Objective Physical Examination General Exam: Positive: Alert, No Acute Distress Eye Exam: Positive: PERRLA, EOMI, Negative: Sclera icteric Neck Exam: Positive: Supple, JVD Chest Exam: Positive: Clear to auscultation, Negative: Rales, Wheezing Heart Exam: Positive: Rate Normal, Regular Rhythm, Normal S1, Normal S2, Negative: Murmurs, Rubs Telemetry: Positive: No significant arrhythmia Abdomen Exam: Positive: Normal bowel sounds, Soft, Other (Round.), Negative: Tenderness, Hepatospenomegaly Extremity Exam: Positive: Normal pulses Skin Exam: Positive: Nl turgor and temperature Psych Exam: Positive: Mental status NL Assessment /Plan Assessment 1. End Stage Renal Disease Continue with dialysis. Last received today. Dr. Stark has been consulted, appreciate his assistance in management of this patient. Item Value Date Time Creatinine 5.27 MG/DL H 12/09/16 0701 Glomerular Filtration Rate 11.8 L 12/09/16 0701 2. Deconditioning Continue to work physical therapy. Less compliant with them yesterday. Appreciate their assistance in management of this patient. Did not work with patient today due to dialysis. Will encourage patient to be oob as much as possible. 3. Noncompliance Patient took medications today. Cooperative today. Encourage compliance with medications and physical therapy. Need to continue for discharge. 4. Hypertension Continue with current medications. Continue to monitor vitals. Not hypertensive overnight. 5. Anemia Hemoglobin similar to previous. Chronic. Repeat in the morning. Item Value Date Time Hemoglobin 11.4 g/dl L 12/09/16 0702 Hematocrit 35.8 % L 12/09/16 0702 6. Diabetes Continue to monitor glucose, especially if patient is not eating as much. Hypoglycemia protocol. Continue current sliding scale. 7. DVT prophylaxis Adding teds and encourage out of bed with ambulation. Plan/VTE VTE Prophylaxis Ordered?: Yes (Teds. ) Plan Diagnostics: Repeat Labs in AM VS, I&O, 24H, Fishbone Vital Signs/I&O Vital Signs Date Time Temp Pulse Resp B/P (MAP) Pulse Ox O2 Delivery O2 Flow Rate FiO2 12/09/16 16:01 Room Air 12/09/16 14:16 97.8 69 20 123/74 (90) 100 I&O- Last 24 Hours up to 6 AM 12/10/16 06:00 Intake Total 240 ml Output Total 1500 ml Balance -1260 ml Laboratory Data 24H LABS Laboratory Tests 2 12/09/16 07:01: Blood Urea Nitrogen 25#H, Creatinine 5.27H, Sodium Level 138, Potassium Level 4.1, Chloride Level 103, Carbon Dioxide Level 25, Anion Gap 10, Glomerular Filtration Rate 11.8L, Calcium Level 9.3, Phosphorus Level 2.7, Albumin 3.2 12/09/16 07:02: Nucleated Red Blood Cells % (auto) 0.0 CBC/BMP Laboratory Tests 12/09/16 07:01 Anion Gap 10 12/09/16 07:02 Red Blood Count 4.16 L, Mean Corpuscular Volume 86.1, Mean Corpuscular Hemoglobin 27.4, Mean Corpuscular Hemoglobin Concent 31.8 L, Red Cell Distribution Width 16.4 H Microbiology Microbiology 12/08/16 Gastrointestinal Tract Panel (PCR) - Final, Complete GME ATTESTATION GME ATTESTATION My preceptor for this patient encounter was physically present in the building during the encounter and was fully available. As needed, all aspects of the patient interview, examination, medical decision making process, and medical care plan development were reviewed and approved by the preceptor. Preceptor is aware and concurs with the plan as stated in the body of this note and will attest to such by his/her cosignature. NORRIS GARCIA DO Dec 09, 2016 16:57
[2016-12-09 22:00] VITALS: BP 114/74
[2016-12-10] MEDS: HEPARIN SOD (PORCINE) 5000 UNITS/ML VIAL SQ SCH ×3 (05:17→20:55)
[2016-12-10] MEDS: SLF 3 ML SYR IV SCH ×3 (05:24→21:16)
[2016-12-10 06:00] VITALS: BP 132/77
[2016-12-10] MEDS: HumaLOG INSULIN (NovoLOG) PER UNIT SC SCH ×3 (09:10→17:30)
[2016-12-10] MEDS: ATORVASTATIN 20 MG TAB PO SCH (09:46)
[2016-12-10] MEDS: SPIRONOLACTONE 25 MG TAB PO SCH (09:47)
[2016-12-10] MEDS: SERTRALINE HCL 25 MG TABLET PO SCH (09:47)
[2016-12-10] MEDS: ASPIRIN 81 MG ENTERIC TAB PO SCH (09:47)
[2016-12-10] MEDS: CARVedilol 3.125 MG TAB PO SCH (09:47)
--- NOTE | 2016-12-10 11:35 | IPNPDOC ---
Subjective Date Seen The patient was seen on 12/10/16. Subjective Chief Complaint/HPI The patient is a 61-year-old male admitted with a reason for visit of Chf, Esrd On Dialysis. Events since last encounter Patient is lying in bed. He is a man of few words. Does respond to questions. Has no complaints or questions today. Denies any pain or discomfort. Denies any nausea or vomiting. No abdominal pain. Has not been up in chair. Encourage patient to get out of bed more. Patient has been having some loose stools. Not watery. Constitutional: Denies: Chills, Fever ENT: Denies: Head Aches Cardiovascular: Denies: Chest Pain Gastrointestinal: Denies: Nausea, Vomiting, Abdominal Pain Musculoskeletal: Denies: Back Pain Objective Physical Examination General Exam: Positive: Alert, No Acute Distress Eye Exam: Positive: PERRLA Neck Exam: Positive: Supple, JVD Chest Exam: Positive: Clear to auscultation Heart Exam: Positive: Rate Normal, Normal S1, Normal S2, Murmurs Telemetry: Positive: No significant arrhythmia Abdomen Exam: Positive: Normal bowel sounds, Soft, Other (No rigidity or rebound. ), Negative: Tenderness Skin Exam: Positive: Nl turgor and temperature Neuro Exam: Positive: Strength at 5/5 X4 ext (lower extremity bilaterally) Assessment /Plan Assessment 1. End Stage Renal Disease Continue with dialysis. Last received 12/09/16. Dr. Stark has been consulted, appreciate his assistance in management of this patient. Repeat labs in morning. 2. Deconditioning Is working with physical therapy. Missed them 12/09 due to dialysis. Will encourage patient to be oob as much as possible. Has been not eating or refusing food. Patient does not express why. Denies abdominal pain and nausea. 3. Noncompliance Patient took medications today. Encourage compliance with medications and physical therapy. Need to continue for discharge. 4. Loose stools GI panel from 12/08 negative. Starting patient on Loperamide Q6HP for loose stools. 5. Hypertension Continue with current medications. Continue to monitor vitals. Not hypertensive overnight. 6. Anemia Hemoglobin similar to previous. Chronic. Repeat in the morning. 7. Diabetes Continue to monitor glucose, especially if patient is not eating as much. Hypoglycemia protocol. Continue current sliding scale. DVT prophylaxis Continue teds and encourage oob with ambulation. Plan/VTE VTE Prophylaxis Ordered?: Yes (Teds. ) Plan Diagnostics: Repeat Labs in AM Disposition Continue to work with PT. Monitor patient. No discharge today. PFS working with patient on discharge plan to care facility. VS, I&O, 24H, Fishbone Vital Signs/I&O Vital Signs Date Time Temp Pulse Resp B/P (MAP) Pulse Ox O2 Delivery O2 Flow Rate FiO2 12/10/16 09:47 68 119/77 12/10/16 06:00 98.4 20 99 Room Air Laboratory Data 24H LABS Laboratory Tests 2 12/09/16 20:30: Bedside Glucose (Misc Panel) 148H 12/10/16 09:12: Bedside Glucose (Misc Panel) 109 Microbiology Microbiology 12/08/16 Gastrointestinal Tract Panel (PCR) - Final, Complete GME ATTESTATION GME ATTESTATION My preceptor for this patient encounter was physically present in the building during the encounter and was fully available. As needed, all aspects of the patient interview, examination, medical decision making process, and medical care plan development were reviewed and approved by the preceptor. Preceptor is aware and concurs with the plan as stated in the body of this note and will attest to such by his/her cosignature. NORRIS GARCIA DO Dec 10, 2016 11:35
[2016-12-10 14:00] VITALS: BP 116/72
[2016-12-10] MEDS: LOPERAMIDE 2 MG CAP PO PRN (14:51)
[2016-12-10] MEDS: CARVedilol 6.25 MG TAB PO SCH (21:15)
[2016-12-10 22:00] VITALS: BP 116/75
[2016-12-11] MEDS: HEPARIN SOD (PORCINE) 5000 UNITS/ML VIAL SQ SCH ×3 (05:08→22:40)
[2016-12-11] MEDS: SLF 3 ML SYR IV SCH ×3 (05:09→22:40)
[2016-12-11 06:00] VITALS: BP 121/76
[2016-12-11 06:57] LABS: BASO # 0.1 10^3/uL (0.0-0.2); BASO % 1.1 % (0.0-1.0); EOS # 0.4 10^3/uL (0.0-0.50); EOS % 6.5 % (0.0-3.0); IMMATURE GRANULOCYTE % 0.5 % (0-0); LYMPH # 0.7 10^3/uL (1.5-4.5); LYMPH % 11.4 % (24.0-44.0); MEAN CORPUSCULAR HEMOGLOBIN 27.4 pg (27.0-33.0); MEAN CORPUSCULAR HGB CONC 32.2 g/dl (32.0-36.5); MEAN CORPUSCULAR VOLUME 85.3 fl (80.0-96.0); MONO # 1.3 10^3/uL (0.0-0.8); MONO % 20.5 % (0.0-5.0); NEUTROPHILS # 3.7 10^3/uL (1.8-7.7); PLATELET COUNT, AUTOMATED 162 10^3/uL (150-450); RED CELL DISTRIBUTION WIDTH 16.1 % (11.5-14.5); WHITE BLOOD COUNT 6.2 10^3/uL (4.0-10.0)
[2016-12-11 07:17] LABS: CALCIUM LEVEL 9.3 MG/DL (8.8-10.2); CREATININE FOR GFR 5.17 MG/DL (0.70-1.30); GLOMERULAR FILTRATION RATE 12.1 (>49)
[2016-12-11] MEDS: SPIRONOLACTONE 25 MG TAB PO SCH (09:45)
[2016-12-11] MEDS: ATORVASTATIN 20 MG TAB PO SCH (09:45)
[2016-12-11] MEDS: SERTRALINE HCL 25 MG TABLET PO SCH (09:45)
[2016-12-11] MEDS: HumaLOG INSULIN (NovoLOG) PER UNIT SC SCH ×3 (09:45→18:02)
[2016-12-11] MEDS: CARVedilol 6.25 MG TAB PO SCH ×2 (09:46→21:03)
[2016-12-11] MEDS: ASPIRIN 81 MG ENTERIC TAB PO SCH (09:46)
--- NOTE | 2016-12-11 10:03 | IPNPDOC ---
Text Note Date of Service The patient was seen on 12/11/16. NOTE Subjective: Patient seen and examined at bedside. No new medical complaints. States his diarrhea has resolved. Objective: General: NAD HEENT: NC/AT Lungs: CTA B/L Heart: +S1S2, RRR Abd: soft, NT, +BS Ext: no edema A/P: 61 yo male for generalized deconditioning 1. ESRD - continue dialysis m/w/f - follow as per nephrology - assistance appreciated 2. HTN - well controlled 3. Anemia - continue to follow 4. Malnutrition: The patient is not eating very well. I have added Nepro 1 can daily, however, his protein intake remains very poor. I am not sure if it is related to his recent stroke or depression. 5. CVA - continue with PT/OT 6. DVT prophylaxis - mechanical 7. Diarrhea - improved/resolved with anti-motility agents Dispo: pending placement, continue PT, dialysis tomorrow VS,Fishbone, I+O VS, Fishbone, I+O Laboratory Tests 12/11/16 06:49 Red Blood Count 4.34, Mean Corpuscular Volume 85.3, Mean Corpuscular Hemoglobin 27.4, Mean Corpuscular Hemoglobin Concent 32.2, Red Cell Distribution Width 16.1 H, Neutrophils (%) (Auto) 60.0, Lymphocytes (%) (Auto) 11.4 L, Monocytes (% ) (Auto) 20.5 H, Eosinophils (%) (Auto) 6.5 H, Basophils (%) (Auto) 1.1 H, Neutrophils # (Auto) 3.7, Lymphocytes # (Auto) 0.7 L, Monocytes # (Auto) 1.3 H, Eosinophils # (Auto) 0.4, Basophils # (Auto) 0.1, Calcium Level 9.3 Vital Signs Date Time Temp Pulse Resp B/P (MAP) Pulse Ox O2 Delivery O2 Flow Rate FiO2 12/11/16 09:46 71 117/75 12/11/16 06:00 98.2 18 90 Room Air NORRIS TRIPLETT MD Dec 11, 2016 10:03
[2016-12-11 14:00] VITALS: BP 108/66
--- NOTE | 2016-12-11 20:45 | IPN ---
DATE: 12/11/2016 SUBJECTIVE: The patient is seen this morning at the bedside. He has no new complaints. He gives short replies to questions. He states he has not gotten out of bed or ambulating today, but reports that he did eat breakfast well. REVIEW OF SYSTEMS: Negative for fevers, chills, chest pain, palpitations, shortness of breath, nausea, vomiting, diarrhea. Positive for amotivation. Temperature 98.2, pulse 69, respiratory rate 18, blood pressure 121/76, saturating 90-97% on room air. Intake and output: Not fully recorded, but weight in the bed scale today is 90.4 kg. PHYSICAL EXAMINATION: The patient is seen lying down in bed in no acute distress. HEAD and NECK: Extraocular muscles are intact. The oral mucosa is moist. The neck is supple. There is no jugular venous distention. CARDIAC: S1, S2. There is a defibrillator present in the left chest wall. Radial pulse 2+. There is no edema in the lower extremities. RESPIRATORY: Lung sounds are diminished at the bilateral bases, otherwise clear. ABDOMEN: Soft, obese, nontender. EXTREMITIES: There is a fistula in the right upper extremity with thrill and bruit. There is no edema in the peripheries. PSYCHIATRIC: Flat. NEUROLOGIC: Minimal dysarthria. LABORATORY DATA: White count 6.2, hemoglobin 11.9, platelets 162. Sodium 138, potassium 4, bicarbonate 26, calcium 9.3, glucose 116. INPATIENT MEDICATIONS: Reviewed by myself. There are no significant changes in the past 24 hours. ASSESSMENT AND PLAN: 1. End-stage renal disease on hemodialysis. The patient will receive a hemodialysis treatment tomorrow per his maintenance schedule. His volume status is compensated and electrolytes remain stable. He is on a renal diet. 2. Hypertension. Blood pressure has been well controlled without hypotension or hypertension. He continues on carvedilol 6.25 mg by mouth twice a day along with spironolactone 25 mg daily. 3. Stroke. The patient remains mostly bed bound. He is continuing to receive physical therapy and occupational therapy. He reports some improvement in his oral intake and he is on Nepro supplement. His discharge is pending placement.
[2016-12-11 22:00] VITALS: BP 105/68
[2016-12-12 06:00] VITALS: BP 116/72
[2016-12-12] MEDS: SERTRALINE HCL 25 MG TABLET PO SCH (06:21)
[2016-12-12] MEDS: SPIRONOLACTONE 25 MG TAB PO SCH (06:21)
[2016-12-12] MEDS: ATORVASTATIN 20 MG TAB PO SCH (06:21)
[2016-12-12] MEDS: ASPIRIN 81 MG ENTERIC TAB PO SCH (06:21)
[2016-12-12] MEDS: HEPARIN SOD (PORCINE) 5000 UNITS/ML VIAL SQ SCH ×3 (06:22→21:02)
[2016-12-12] MEDS: CARVedilol 6.25 MG TAB PO SCH ×2 (06:22→21:03)
[2016-12-12] MEDS: SLF 3 ML SYR IV SCH ×3 (06:22→21:02)
[2016-12-12 06:51] LABS: BASO # 0.1 10^3/uL (0.0-0.2); BASO % 1.4 % (0.0-1.0); EOS # 0.3 10^3/uL (0.0-0.50); EOS % 6.5 % (0.0-3.0); IMMATURE GRANULOCYTE % 0.6 % (0-0); LYMPH # 0.7 10^3/uL (1.5-4.5); LYMPH % 13.8 % (24.0-44.0); MEAN CORPUSCULAR HEMOGLOBIN 26.9 pg (27.0-33.0); MEAN CORPUSCULAR HGB CONC 31.6 g/dl (32.0-36.5); MONO % 19.6 % (0.0-5.0); NEUTROPHILS # 2.9 10^3/uL (1.8-7.7); NEUTROPHILS % 58.1 % (36.0-66.0); PLATELET COUNT, AUTOMATED 157 10^3/uL (150-450); RED CELL DISTRIBUTION WIDTH 16.4 % (11.5-14.5); WHITE BLOOD COUNT 5.1 10^3/uL (4.0-10.0)
[2016-12-12 06:55] LABS: CALCIUM LEVEL 9.2 MG/DL (8.8-10.2); CREATININE FOR GFR 6.18 MG/DL (0.70-1.30); GLOMERULAR FILTRATION RATE 9.8 (>49); POTASSIUM SERUM 4.2 MEQ/L (3.5-5.1)
[2016-12-12] MEDS: HumaLOG INSULIN (NovoLOG) PER UNIT SC SCH ×3 (07:30→17:30)
[2016-12-12] MEDS ORDERED: HEPARIN 1,000 UNITS/ML 10ML VIAL (FOR RADIOLOGY& DIALYSIS ONLY) IV ONE (10:15)
[2016-12-12 14:00] VITALS: BP 148/68
--- NOTE | 2016-12-12 18:56 | IPNPDOC ---
Subjective Date Seen The patient was seen on 12/12/16. Subjective Chief Complaint/HPI The patient is a 61-year-old male admitted with a reason for visit of Chf, Esrd On Dialysis. Events since last encounter Patient was seen in bed in dialysis. Patient has no complaints today. Says that the stools have decreased. Denies any abdominal pain or chest pain. Denies any shortness of breath or cough. States he feels okay until about the same. Discussed continue work with physical therapy. Constitutional: Denies: Chills, Fever ENT: Denies: Head Aches Pulmonary: Denies: Dyspnea, Cough Cardiovascular: Denies: Chest Pain, Palpitations Gastrointestinal: Reports: Other Symptoms (Stool more formed. ), Denies: Nausea, Vomiting Genitourinary: Denies: Dysuria Objective Physical Examination General Exam: Positive: Alert, Cooperative, No Acute Distress Eye Exam: Positive: PERRLA, EOMI, Negative: Sclera icteric Neck Exam: Positive: Supple Chest Exam: Positive: Clear to auscultation, Negative: Rales, Wheezing Heart Exam: Positive: Rate Normal, Regular Rhythm, Normal S1, Normal S2 Abdomen Exam: Positive: Normal bowel sounds, Soft, Negative: BS Hyperactive, BS Hypoactive, Tenderness, Hepatospenomegaly Extremity Exam: Positive: Normal pulses Skin Exam: Positive: Nl turgor and temperature Assessment /Plan Assessment 1. End Stage Renal Disease Continue with dialysis today. Nephrology has been consulted, appreciate their assistance in management of this patient. Repeat labs in morning. 2. Deconditioning Is working with physical therapy. Missed them 12/09 due to dialysis. Encourage patient to be oob as much as possible. Denies abdominal pain and nausea. 3. Noncompliance Patient took medications today. Encourage compliance with medications and physical therapy. Need to continue for discharge. 4. Loose stools GI panel from 12/08 negative. Started patient on Loperamide Q6HP for loose stools. Helped, more formed now. Resolving. 5. Hypertension Continue with current medications. Continue to monitor vitals. Not hypertensive overnight. Currently on Coreg. 6. Anemia Hemoglobin similar to previous. Chronic. Repeat in the morning. 7. Diabetes Continue to monitor glucose, especially if patient is not eating as much. Hypoglycemia protocol. Continue current sliding scale. 8. DVT prophylaxis Continue teds and encourage oob with ambulation. Plan/VTE VTE Prophylaxis Ordered?: Yes (Teds. ) Plan Diagnostics: Repeat Labs in AM VS, I&O, 24H, [facility] Vital Signs/I&O Vital Signs Date Time Temp Pulse Resp B/P (MAP) Pulse Ox O2 Delivery O2 Flow Rate FiO2 12/12/16 08:46 Room Air 12/12/16 06:22 72 116/72 12/12/16 06:00 97.7 18 97 Laboratory Data 24H LABS Laboratory Tests 2 12/11/16 11:35: Bedside Glucose (Misc Panel) 128H 12/11/16 17:16: Bedside Glucose (Misc Panel) 135H 12/11/16 20:50: Bedside Glucose (Misc Panel) 118H 12/12/16 06:25: Immature Granulocyte % (Auto) 0.6H, White Blood Count 5.1, Red Blood Count 4.28L , Hemoglobin 11.5L, Hematocrit 36.4L, Mean Corpuscular Volume 85.0, Mean Corpuscular Hemoglobin 26.9L, Mean Corpuscular Hemoglobin Concent 31.6L, Red Cell Distribution Width 16.4H, Platelet Count 157, Neutrophils (%) (Auto) 58.1, Lymphocytes (%) (Auto) 13.8L, Monocytes (%) (Auto) 19.6H, Eosinophils (%) (Auto ) 6.5H, Basophils (%) (Auto) 1.4H, Neutrophils # (Auto) 2.9, Lymphocytes # (Auto ) 0.7L, Monocytes # (Auto) 1.0H, Eosinophils # (Auto) 0.3, Basophils # (Auto) 0.1, Immature Granulocyte # (Auto) 0.0, Nucleated Red Blood Cells % (auto) 0.0, Anion Gap 10, Glomerular Filtration Rate 9.8L, Blood Urea Nitrogen 33H, Creatinine 6.18H, Sodium Level 137, Potassium Level 4.2, Chloride Level 103, Carbon Dioxide Level 24, Calcium Level 9.2 CBC/BMP Laboratory Tests 12/12/16 06:25 Red Blood Count 4.28 L, Mean Corpuscular Volume 85.0, Mean Corpuscular Hemoglobin 26.9 L, Mean Corpuscular Hemoglobin Concent 31.6 L, Red Cell Distribution Width 16.4 H, Neutrophils (%) (Auto) 58.1, Lymphocytes (%) (Auto) 13.8 L, Monocytes (%) (Auto) 19.6 H, Eosinophils (%) (Auto) 6.5 H, Basophils (% ) (Auto) 1.4 H, Neutrophils # (Auto) 2.9, Lymphocytes # (Auto) 0.7 L, Monocytes # (Auto) 1.0 H, Eosinophils # (Auto) 0.3, Basophils # (Auto) 0.1, Calcium Level 9.2 Microbiology Microbiology 12/08/16 Gastrointestinal Tract Panel (PCR) - Final, Complete GME ATTESTATION GME ATTESTATION My preceptor for this patient encounter was physically present in the building during the encounter and was fully available. As needed, all aspects of the patient interview, examination, medical decision making process, and medical care plan development were reviewed and approved by the preceptor. Preceptor is aware and concurs with the plan as stated in the body of this note and will attest to such by his/her cosignature. NORRIS GARCIA DO Dec 12, 2016 10:39
[2016-12-12] MEDS: LOPERAMIDE 2 MG CAP PO PRN (21:06)
[2016-12-12 22:00] VITALS: BP 119/72
--- NOTE | 2016-12-12 23:54 | IPN ---
DATE: 12/10/2016 SUBJECTIVE: The patient is seen this morning at the bedside. He has no acute complaints. He tolerated hemodialysis well yesterday without any issues. He continues to give short answers to questions. REVIEW OF SYSTEMS: Negative for headache, dizziness, chest pain, palpitations, shortness of breath at rest, nausea, vomiting, diarrhea. Positive for decreased oral intake and deconditioning. Remainder of review of systems is negative. VITAL SIGNS: Temperature 96.9, pulse 60, respiratory rate 18, blood pressure 116/72, saturating 96% on room air. INTAKE AND OUTPUT: Hemodialysis yesterday removed 1.5 liters. There were 3 recorded bowel movements yesterday. Weight on the bed scale today is 87.5 kg. PHYSICAL EXAMINATION: The patient is seen lying in bed in no acute distress. HEAD AND NECK: Extraocular muscles are intact. The oral mucosa is moist. The pupils are round and reactive. Neck is supple. There is a defibrillator present in the left chest wall. CARDIAC: S1, S2, systolic murmur, 2+ radial pulse. No edema in the extremities. LUNGS: Clear to auscultation bilaterally. ABDOMEN: Soft, obese, nontender. Bowel sounds are present. EXTREMITIES: Without edema. NEUROLOGIC: He moves all four extremities on command. He has some dysarthria, which is hard to appreciate as he speaks very little. PSYCHIATRIC: Flat affect. LABORATORY: There are no new labs for today, except for fingerstick of 105. Microbiology: Gastrointestinal (GI) tract PCR 12/08/2016 is negative. INPATIENT MEDICATIONS: The patient was started on loperamide as needed, but otherwise no significant changes in the past 24 hours. PROBLEMS: 1. End-stage renal disease, on hemodialysis. The patient continues with his maintenance hemodialysis treatment. His next dialysis session will be on 12/12/2016. 2. Hypertension. Blood pressure is currently well controlled on carvedilol and spironolactone. 3. Diabetes. Accu-Cheks are at goal. Patient continues on insulin. 4. Complaint of recurrent loose stools. Recent GI PCR was negative, and the patient is receiving as needed loperamide per the primary team. 5. Anemia. The patient's hemoglobin is at goal, and he is not receiving any erythropoietin stimulating agent. 6. Stroke. The patient is receiving physical therapy and occupational therapy. He remains mostly bed bound and does not seem very motivated to push himself for further rehabilitation. His oral intake has also been poor. He is likely to require placement for further care given his deconditioning.
--- NOTE | 2016-12-13 00:15 | IPN ---
DATE: 12/12/2016 SUBJECTIVE: The patient is seen this morning on hemodialysis, receiving his maintenance treatment without any issues. He denies any acute events overnight. Denies recurrent diarrhea, had zero bowel movements recorded in the past 24 hours. He reports he has not been out of bed so far today. REVIEW OF SYSTEMS: Positive for chronic fatigue, deconditioning and improved diarrhea. Review of systems is negative for lightheadedness, dizziness, chest pain, palpitations, nausea, vomiting. Remainder of review of systems is negative. VITAL SIGNS: Temperature 97.7, pulse 72, respiratory rate 18, blood pressure 116/72, saturating 97% on room air. INTAKE AND OUTPUT: Hemodialysis today removed 1.5 liters. There was one recorded bowel movement today. Weight on the bed scale today 87.5 kg. PHYSICAL EXAMINATION: The patient is seen on hemodialysis. He is in no acute distress. Extraocular muscles are intact. His mucous membranes are moist. His neck is supple. There is no jugular venous distention. CARDIAC: S1, S2. There is a defibrillator present in the left chest wall. There is no edema in the extremities. LUNGS: Clear to auscultation on anterior air movement. He is seen on room air. ABDOMEN: Soft, obese, nontender. EXTREMITIES: He has a right upper extremity fistula with thrill and bruit. His bilateral lower extremities have no edema or cyanosis. SKIN: Without rashes. NEUROLOGIC: He moves all four extremities on command, answers questions appropriately but with short replies. He has some mild dysarthria. PSYCHIATRIC: Appropriate mood and affect. LABORATORY: White count 5.1, hemoglobin 11.5, platelets 157. Sodium 137, potassium 4.2, bicarbonate 24, BUN 33, calcium 9.2, glucose 120. INPATIENT MEDICATIONS: Reviewed by myself. There are no significant changes in the past 24 hours. ASSESSMENT AND PLAN: 1. End-stage renal disease. The patient received a maintenance dialysis treatment today per his schedule. He had an ultrafiltration of just 1.5 liters given that his oral intake has been fairly poor and that he had recurrent loose bowel movements over the weekend. At present, he seems to be at "dry weight." 2. Hypertension. Blood pressure is well controlled at this time on spironolactone and carvedilol without hypertensive or hypotensive episode. 3. Anemia of chronic kidney disease. Hemoglobin has been slightly above goal. Erythropoietin stimulating agents are on hold. 4. Stroke, deconditioning. The patient was encouraged to increase oral intake as tolerated. He is receiving physical therapy. He otherwise has not been getting out of bed much. He has discharge pending placement.
[2016-12-13] MEDS: HEPARIN SOD (PORCINE) 5000 UNITS/ML VIAL SQ SCH ×3 (05:47→22:00)
[2016-12-13] MEDS: SLF 3 ML SYR IV SCH ×3 (05:47→22:00)
[2016-12-13 06:00] VITALS: BP 113/72
[2016-12-13 06:04] LABS: BASO # 0.1 10^3/uL (0.0-0.2); EOS # 0.3 10^3/uL (0.0-0.50); EOS % 5.4 % (0.0-3.0); IMMATURE GRANULOCYTE % 0.4 % (0-0); LYMPH # 0.8 10^3/uL (1.5-4.5); LYMPH % 16.3 % (24.0-44.0); MEAN CORPUSCULAR HEMOGLOBIN 27.4 pg (27.0-33.0); MEAN CORPUSCULAR HGB CONC 32.5 g/dl (32.0-36.5); MEAN CORPUSCULAR VOLUME 84.5 fl (80.0-96.0); MONO # 1.2 10^3/uL (0.0-0.8); NEUTROPHILS # 2.5 10^3/uL (1.8-7.7); NEUTROPHILS % 52.9 % (36.0-66.0); PLATELET COUNT, AUTOMATED 142 10^3/uL (150-450); RED CELL DISTRIBUTION WIDTH 16.1 % (11.5-14.5); WHITE BLOOD COUNT 4.8 10^3/uL (4.0-10.0)
[2016-12-13 06:23] LABS: CALCIUM LEVEL 9.5 MG/DL (8.8-10.2); CREATININE FOR GFR 4.25 MG/DL (0.70-1.30); GLOMERULAR FILTRATION RATE 15.1 (>49); POTASSIUM SERUM 4.2 MEQ/L (3.5-5.1)
[2016-12-13] MEDS: HumaLOG INSULIN (NovoLOG) PER UNIT SC SCH ×3 (07:30→16:48)
[2016-12-13 10:26] VITALS: BP 117/75
[2016-12-13] MEDS: SERTRALINE HCL 25 MG TABLET PO SCH (11:08)
[2016-12-13] MEDS: ASPIRIN 81 MG ENTERIC TAB PO SCH (11:08)
[2016-12-13] MEDS: SPIRONOLACTONE 25 MG TAB PO SCH (11:08)
[2016-12-13] MEDS: ATORVASTATIN 20 MG TAB PO SCH (11:09)
[2016-12-13] MEDS: LOPERAMIDE 2 MG CAP PO PRN (11:09)
[2016-12-13] MEDS: CARVedilol 6.25 MG TAB PO SCH ×2 (11:09→21:00)
--- NOTE | 2016-12-13 12:08 | IPN ---
DATE: 12/13/2016 SUBJECTIVE: The patient is seen this morning at the bedside. He has no acute complaints. He tolerated his hemodialysis session well yesterday without issue. He reports one watery bowel movement in the past 24 hours. He states he ate breakfast well this morning. He has not been out of bed yet. VITAL SIGNS: Temperature 98.1, pulse 71, respiratory rate 17, blood pressure 113/72, saturating 97% on room air. INTAKE AND OUTPUT: Hemodialysis yesterday removed 1500 mL. Weight on the bed scale today is 88.2 kg. There were 2 recorded bowel movements. PHYSICAL EXAMINATION: The patient is seen lying in bed in no acute distress. Extraocular muscles are intact. His neck is supple. There is no jugular venous distention. Cardiac: S1, S2. There is a defibrillator in the left chest wall. 2+ radial pulses. No edema in the lower extremities. Lungs are clear to auscultation bilaterally. Abdomen is soft, obese, nontender. Bowel sounds are present. Extremities: No edema present in the extremities. There is a right upper extremity fistula with thrill and bruit. Skin: Without rashes. Psychiatric: The patient does not offer much in the way of conversation, but denies depression. Neurologic: Minimal dysarthria, otherwise negative. LABORATORIES: White count 4.8, hemoglobin 11.5, platelets 142. Sodium 137, potassium 4.2, bicarbonate 27, calcium 9.5. INPATIENT MEDICATIONS: Reviewed by myself. There are no significant changes in the past 24 hours. ASSESSMENT AND PLAN: 1. End-stage renal disease, on hemodialysis. The patient continues with dialysis per maintenance schedule Monday, Monday, Monday. Given his intermittent diarrhea and overall low oral intake, he has not required aggressive ultra filtration. His volume status is well compensated on exam. 2. Noncompliance. Noncompliance has been a chronic issue. The patient has missed multiple hemodialysis treatments as an outpatient. He is encouraged to comply with physical therapy as an inpatient and to work on getting out of bed as tolerated. 3. Intermittent loose stools. Recent GI panel PCR was negative. The patient is receiving loperamide as needed. He only reports one loose stool in the past 24 hours. 4. Hypertension. Blood pressure was well controlled overnight with Coreg and spironolactone. 5. Anemia of chronic kidney disease. Hemoglobin is 11.5, which is slightly above goal. He is not receiving any erythropoietin stimulating agents at this time.
[2016-12-13 14:00] VITALS: BP 115/75
--- NOTE | 2016-12-13 17:58 | IPNPDOC ---
Subjective Date Seen The patient was seen on 12/13/16. Subjective Chief Complaint/HPI The patient is a 61-year-old male admitted with a reason for visit of Chf, Esrd On Dialysis. Events since last encounter Patient is examined at bedside. He is comfortable in bed. Patient was sleeping comfortably. Has no complaints on exam. No concerns. He did not work with PT yesterday after dialysis. Discussed that patient needs to work with PT. Has no abdominal pain or chest pain. Constitutional: Denies: Chills, Fever Pulmonary: Denies: Dyspnea, Cough Cardiovascular: Denies: Chest Pain, Palpitations Gastrointestinal: Denies: Nausea, Vomiting Musculoskeletal: Denies: Back Pain Objective Physical Examination General Exam: Positive: Alert, Cooperative, No Acute Distress Eye Exam: Positive: PERRLA, EOMI, Negative: Sclera icteric Neck Exam: Positive: Supple Chest Exam: Positive: Clear to auscultation, Negative: Rales, Wheezing Heart Exam: Positive: Rate Normal, Regular Rhythm, Normal S1, Normal S2 Abdomen Exam: Positive: Normal bowel sounds, Soft, Negative: BS Hyperactive, BS Hypoactive, Tenderness, Hepatospenomegaly Extremity Exam: Positive: Normal pulses Skin Exam: Positive: Nl turgor and temperature Assessment /Plan Assessment 1. End Stage Renal Disease Continue with dialysis today. Dr. Stark has been consulted, appreciate his assistance in management of this patient. Repeat labs tomorrow before discharge. 2. Deconditioning Is working with physical therapy. Refused to work with PT after dialysis yesterday. Encourage patient to be oob as much as possible. Denies abdominal pain and nausea. 3. Noncompliance Continue to encourage patient to be compliant and take medications for discharge. 4. Loose stools GI panel from 12/08 negative. Has Loperamide Q6HP for loose stools as needed. 5. Hypertension Continue with current medications. Continue to monitor vitals. Not hypertensive overnight. Currently on Coreg. 6. Anemia Hemoglobin similar to previous. Chronic. Repeat in the morning. 7. Diabetes Continue to monitor glucose, especially if patient is not eating as much. Hypoglycemia protocol. Continue current sliding scale. 8. DVT prophylaxis Heparin subq. Continue teds and encourage oob with ambulation. Plan/VTE VTE Prophylaxis Ordered?: Yes (Teds. ) Plan Diagnostics: Repeat Labs in AM Disposition Plan is to make patient ALC today. Continue to work with physical therapy. Continue with dialysis. VS, I&O, 24H, Fishbone Vital Signs/I&O Vital Signs Date Time Temp Pulse Resp B/P (MAP) Pulse Ox O2 Delivery O2 Flow Rate FiO2 12/13/16 06:00 98.1 71 17 113/72 (86) 97 Room Air I&O- Last 24 Hours up to 6 AM 12/14/16 06:00 Intake Total 120 ml Output Total 0 ml Balance 120 ml Laboratory Data 24H LABS Laboratory Tests 2 12/12/16 13:51: Bedside Glucose (Misc Panel) 129H 12/12/16 17:04: Bedside Glucose (Misc Panel) 101 12/12/16 19:59: Bedside Glucose (Misc Panel) 110 12/13/16 05:52: Immature Granulocyte % (Auto) 0.4H, White Blood Count 4.8, Red Blood Count 4.19L , Hemoglobin 11.5L, Hematocrit 35.4L, Mean Corpuscular Volume 84.5, Mean Corpuscular Hemoglobin 27.4, Mean Corpuscular Hemoglobin Concent 32.5, Red Cell Distribution Width 16.1H, Platelet Count 142L, Neutrophils (%) (Auto) 52.9, Lymphocytes (%) (Auto) 16.3L, Monocytes (%) (Auto) 24.0H, Eosinophils (%) (Auto ) 5.4H, Basophils (%) (Auto) 1.0, Neutrophils # (Auto) 2.5, Lymphocytes # (Auto ) 0.8L, Monocytes # (Auto) 1.2H, Eosinophils # (Auto) 0.3, Basophils # (Auto) 0.1, Immature Granulocyte # (Auto) 0.0, Nucleated Red Blood Cells % (auto) 0.0, Anion Gap 10, Glomerular Filtration Rate 15.1L, Blood Urea Nitrogen 20H, Creatinine 4.25H, Sodium Level 137, Potassium Level 4.2, Chloride Level 100, Carbon Dioxide Level 27, Calcium Level 9.5 CBC/BMP Laboratory Tests 12/13/16 05:52 Red Blood Count 4.19 L, Mean Corpuscular Volume 84.5, Mean Corpuscular Hemoglobin 27.4, Mean Corpuscular Hemoglobin Concent 32.5, Red Cell Distribution Width 16.1 H, Neutrophils (%) (Auto) 52.9, Lymphocytes (%) (Auto) 16.3 L, Monocytes (%) (Auto) 24.0 H, Eosinophils (%) (Auto) 5.4 H, Basophils (% ) (Auto) 1.0, Neutrophils # (Auto) 2.5, Lymphocytes # (Auto) 0.8 L, Monocytes # (Auto) 1.2 H, Eosinophils # (Auto) 0.3, Basophils # (Auto) 0.1, Calcium Level 9.5 Microbiology Microbiology 12/08/16 Gastrointestinal Tract Panel (PCR) - Final, Complete GME ATTESTATION GME ATTESTATION I have both independently examined this patient as well as reviewed the dictated note. I have discussed in detail with the resident the findings and plan of treatment as documented in the residents note. Patient with ESRD, with nephrology following. I will continue to follow the patient and offer further guidance to the patients care as necessary during this hospital stay. NORRIS GARCIA DO Dec 13, 2016 09:50 ZENA CHANEL MD Jan 17, 2017 17:05
[2016-12-14 06:00] VITALS: BP 118/77
[2016-12-14] MEDS: SLF 3 ML SYR IV SCH ×2 (06:00→14:00)
[2016-12-14] MEDS: ATORVASTATIN 20 MG TAB PO SCH (06:07)
[2016-12-14] MEDS: SPIRONOLACTONE 25 MG TAB PO SCH (06:07)
[2016-12-14] MEDS: ASPIRIN 81 MG ENTERIC TAB PO SCH (06:07)
[2016-12-14] MEDS: SERTRALINE HCL 25 MG TABLET PO SCH (06:08)
[2016-12-14] MEDS: CARVedilol 6.25 MG TAB PO SCH ×2 (06:08→21:30)
[2016-12-14] MEDS: HEPARIN SOD (PORCINE) 5000 UNITS/ML VIAL SQ SCH ×3 (06:08→21:30)
[2016-12-14 06:25] LABS: BASO # 0.1 10^3/uL (0.0-0.2); BASO % 1.1 % (0.0-1.0); EOS # 0.3 10^3/uL (0.0-0.50); EOS % 5.4 % (0.0-3.0); IMMATURE GRANULOCYTE % 0.7 % (0-0); LYMPH # 1.1 10^3/uL (1.5-4.5); LYMPH % 20.5 % (24.0-44.0); MEAN CORPUSCULAR HEMOGLOBIN 27.1 pg (27.0-33.0); MEAN CORPUSCULAR HGB CONC 32.1 g/dl (32.0-36.5); MEAN CORPUSCULAR VOLUME 84.5 fl (80.0-96.0); MONO # 1.2 10^3/uL (0.0-0.8); MONO % 21.4 % (0.0-5.0); NEUTROPHILS # 2.7 10^3/uL (1.8-7.7); NEUTROPHILS % 50.9 % (36.0-66.0); PLATELET COUNT, AUTOMATED 146 10^3/uL (150-450); RED CELL DISTRIBUTION WIDTH 16.3 % (11.5-14.5); WHITE BLOOD COUNT 5.4 10^3/uL (4.0-10.0)
[2016-12-14 06:46] LABS: CALCIUM LEVEL 9.2 MG/DL (8.8-10.2); CREATININE FOR GFR 5.61 MG/DL (0.70-1.30); POTASSIUM SERUM 4.1 MEQ/L (3.5-5.1)
[2016-12-14] MEDS: HumaLOG INSULIN (NovoLOG) PER UNIT SC SCH ×3 (07:30→17:30)
[2016-12-14] MEDS ORDERED: HEPARIN 1,000 UNITS/ML 10ML VIAL (FOR RADIOLOGY& DIALYSIS ONLY) IV ONE (12:00)
[2016-12-14 14:15] VITALS: BP 113/68
[2016-12-14 22:00] VITALS: BP 127/78
[2016-12-15 06:00] VITALS: BP 129/86
[2016-12-15] MEDS: HEPARIN SOD (PORCINE) 5000 UNITS/ML VIAL SQ SCH ×3 (06:24→21:20)
[2016-12-15] MEDS: HumaLOG INSULIN (NovoLOG) PER UNIT SC SCH ×3 (07:30→17:30)
[2016-12-15] MEDS: CARVedilol 6.25 MG TAB PO SCH ×2 (09:00→21:19)
--- NOTE | 2016-12-15 09:20 | IPN ---
DATE: 12/14/2016 SUBJECTIVE: The patient is seen this morning on hemodialysis. He is receiving his regular maintenance treatment without any complaint. He reports he ate breakfast well this morning. He reports one soft bowel movement overnight. No other complaints. REVIEW OF SYSTEMS: Negative for fevers, chills, nausea, vomiting, diarrhea, shortness of breath, dysuria. Remainder of review of systems is negative. VITAL SIGNS: Temperature 97.3, pulse 67, respiratory rate 18, blood pressure 118/77, saturating 98% on room air. INTAKE AND OUTPUT: Hemodialysis today removed 1000 mL ultra filtration. Weight on the bed scale today is not recorded. PHYSICAL EXAMINATION: The patient is seen in hemodialysis receiving his treatment without any issues. He is awake, alert and conversational. Extraocular muscles are intact. His oral mucosa is moist. His neck is supple without any jugular venous distention. Cardiac: S1, S2. There is a defibrillator present in the left chest wall. 2+ radial pulses. No significant peripheral edema. Lungs are clear to auscultation bilaterally. Abdomen is soft, obese, nontender. There is a fistula in the right upper extremity with a thrill and bruit. The lower extremities have no edema or cyanosis. Neurologic: The patient gives short replies to answers, but answers questions appropriately. There is no focal deficit. LABORATORIES: White count 5.4, hemoglobin 11.2, platelets 146. Sodium 134, potassium 4.1, bicarbonate 27, calcium 9.2, magnesium 2.0, glucose 112. INPATIENT MEDICATIONS: Reviewed by myself and there is no change from prior. ASSESSMENT AND PLAN: 1. End-stage renal disease, on hemodialysis. The patient continues with his maintenance treatments. His ultra filtration goal was only 1000 mL today due to his intermittent diarrhea and overall poor oral intake. He is euvolemic on exam. 2. Hypertension. Blood pressure is well controlled on current regimen. 3. Anemia of chronic kidney disease. Hemoglobin is slightly above target. RENAE is on hold. 4. Diabetes. His Accu-Cheks are well controlled at this time at less than 150. DISPOSITION: The patient is for an alternative level of care. He will be seen only on dialysis days.
[2016-12-15 10:11] VITALS: BP 110/68
[2016-12-15] MEDS: ASPIRIN 81 MG ENTERIC TAB PO SCH (10:12)
[2016-12-15] MEDS: SPIRONOLACTONE 25 MG TAB PO SCH (10:12)
[2016-12-15] MEDS: SERTRALINE HCL 25 MG TABLET PO SCH (10:12)
[2016-12-15] MEDS: ATORVASTATIN 20 MG TAB PO SCH (10:12)
[2016-12-15 14:00] VITALS: BP 123/66
[2016-12-15 20:00] VITALS: BP 107/60
[2016-12-16] MEDS: HEPARIN SOD (PORCINE) 5000 UNITS/ML VIAL SQ SCH ×3 (05:10→21:26)
[2016-12-16 06:00] VITALS: BP 128/80
[2016-12-16] MEDS: SPIRONOLACTONE 25 MG TAB PO SCH (06:29)
[2016-12-16] MEDS: ASPIRIN 81 MG ENTERIC TAB PO SCH (06:29)
[2016-12-16] MEDS: SERTRALINE HCL 25 MG TABLET PO SCH (06:30)
[2016-12-16] MEDS: ATORVASTATIN 20 MG TAB PO SCH (06:30)
[2016-12-16] MEDS: HumaLOG INSULIN (NovoLOG) PER UNIT SC SCH ×3 (07:30→17:10)
[2016-12-16 08:24] VITALS: BP 128/81
[2016-12-16] MEDS: CARVedilol 6.25 MG TAB PO SCH ×2 (08:27→21:25)
[2016-12-16 09:49] LABS: BASO # 0.1 10^3/uL (0.0-0.2); BASO % 0.8 % (0.0-1.0); EOS # 0.5 10^3/uL (0.0-0.50); EOS % 7.5 % (0.0-3.0); IMMATURE GRANULOCYTE % 0.7 % (0-0); LYMPH # 1.1 10^3/uL (1.5-4.5); LYMPH % 17.3 % (24.0-44.0); MEAN CORPUSCULAR HEMOGLOBIN 26.9 pg (27.0-33.0); MEAN CORPUSCULAR HGB CONC 32.2 g/dl (32.0-36.5); MEAN CORPUSCULAR VOLUME 83.5 fl (80.0-96.0); MONO # 0.8 10^3/uL (0.0-0.8); MONO % 13.4 % (0.0-5.0); NEUTROPHILS # 3.7 10^3/uL (1.8-7.7); NEUTROPHILS % 60.3 % (36.0-66.0); PLATELET COUNT, AUTOMATED 166 10^3/uL (150-450); WHITE BLOOD COUNT 6.1 10^3/uL (4.0-10.0)
[2016-12-16 10:19] LABS: CALCIUM LEVEL 9.2 MG/DL (8.8-10.2); CREATININE FOR GFR 5.58 MG/DL (0.70-1.30); POTASSIUM SERUM 3.8 MEQ/L (3.5-5.1)
[2016-12-16] MEDS ORDERED: HEPARIN 1,000 UNITS/ML 10ML VIAL (FOR RADIOLOGY& DIALYSIS ONLY) XX ONE (11:30)
[2016-12-16] MEDS ORDERED: LIDOCAINE 1% SDV 5 ML VIAL SQ ONE (11:30)
[2016-12-16] MEDS ORDERED: HEPARIN 1,000 UNITS/ML 10ML VIAL (FOR RADIOLOGY& DIALYSIS ONLY) IV ONE ×2 (11:30)
[2016-12-16 14:00] VITALS: BP 116/68
[2016-12-16 22:00] VITALS: BP 111/69
[2016-12-17] MEDS: HEPARIN SOD (PORCINE) 5000 UNITS/ML VIAL SQ SCH ×3 (05:50→21:55)
[2016-12-17 06:00] VITALS: BP 115/71
[2016-12-17] MEDS: HumaLOG INSULIN (NovoLOG) PER UNIT SC SCH ×3 (07:30→17:12)
[2016-12-17] MEDS: CARVedilol 6.25 MG TAB PO SCH ×2 (11:44→21:56)
[2016-12-17] MEDS: ATORVASTATIN 20 MG TAB PO SCH (11:44)
[2016-12-17] MEDS: SERTRALINE HCL 25 MG TABLET PO SCH (11:44)
[2016-12-17] MEDS: ASPIRIN 81 MG ENTERIC TAB PO SCH (11:45)
[2016-12-17] MEDS: SPIRONOLACTONE 25 MG TAB PO SCH (11:45)
--- NOTE | 2016-12-17 12:57 | IPN ---
DATE: 12/16/2016 SUBJECTIVE: This patient is seen this morning on hemodialysis. He reports no acute complaints and no acute events overnight. REVIEW OF SYSTEMS: Negative. VITAL SIGNS: Temperature 97.1, pulse 75, respiratory rate 17, blood pressure 128/80, saturating 95% on room air. Intake and output: The patient's oral intake yesterday was 750 mL. His weight on the bed scale today is 89 kg. PHYSICAL EXAMINATION: He is seen on hemodialysis, in no acute distress. He remains fairly withdrawn as he usually is, giving short answers to questions and not engaging in conversation. Head and neck: Extraocular muscles are intact. Mucous membranes are moist. Neck is supple. Cardiac: S1, S2, defibrillator present in left chest wall. No peripheral edema. 2+ radial pulse. Lungs: Clear to auscultation bilaterally. Abdomen: Soft, nontender. Positive bowel sounds. Extremities: No edema in the extremities. Right upper extremity with fistula, with thrill and bruit. Neurologic: No focal deficits. Psychiatric: Withdrawn as per his normal behavior. LABS: White count 6.1, hemoglobin 10.9, platelet 166. Sodium 135. Potassium 3.8, bicarbonate 27. Chloride 99. Calcium 9.2. INPATIENT MEDICATIONS: Unchanged from prior. PLAN: 1. End-stage renal disease, on hemodialysis. The patient continues to tolerate his maintenance treatments while his oral intake seems to be improving from prior. We will continue to ultrafiltrate him as tolerated by hemodynamics. He is fairly euvolemic on exam at present today. His ultrafiltration goal was 1000 mL. As his oral intake picks up we can ultrafiltrate him further. 2. Blood pressure is well controlled, on current regimen. 3. Anemia of chronic kidney disease. Hemoglobin is at goal. 4. Diabetes. Fingersticks are less than 200. 5. Mild hyponatremia. This will improve with ultrafiltration on hemodialysis. 6. Disposition. The patient does alternative level of care. He will be seen only on dialysis days.
[2016-12-17 14:00] VITALS: BP 109/72
--- NOTE | 2016-12-17 16:30 | IPNPDOC ---
Subjective Date Seen The patient was seen on 12/17/16. Subjective Chief Complaint/HPI The patient is a 61-year-old male admitted with a reason for visit of Chf, Esrd On Dialysis. Events since last encounter Patient seen at bedside. He is lying in bed comfortably. Denies any complaints. No pain. Does not always eat his food. Denies any pain. Would like to go home. Discussed continued compliance with medications, ambulation, physical therapy and oral intake. He agreed. Constitutional: Denies: Chills, Fever Cardiovascular: Denies: Chest Pain Gastrointestinal: Denies: Abdominal Pain Objective Physical Examination General Exam: Positive: Alert, Cooperative, No Acute Distress Eye Exam: Positive: PERRLA, EOMI, Negative: Sclera icteric Neck Exam: Positive: Supple Chest Exam: Positive: Clear to auscultation, Negative: Rales, Wheezing Heart Exam: Positive: Rate Normal, Regular Rhythm, Normal S1, Normal S2 Abdomen Exam: Positive: Normal bowel sounds, Soft, Negative: BS Hyperactive, BS Hypoactive, Tenderness, Hepatospenomegaly Extremity Exam: Positive: Normal pulses Skin Exam: Positive: Nl turgor and temperature Assessment /Plan Assessment 1. End Stage Renal Disease Continue with dialysis. Nephrology has been consulted, appreciate their assistance in management of this patient. Repeat labs tomorrow before discharge. 2. Deconditioning Is working with physical therapy. Encourage patient to work with PT to go home. Encourage patient to be oob as much as possible. 3. Noncompliance Continue to encourage patient to be compliant and take medications for discharge. 4. Hypertension Continue with current medications. Continue to monitor vitals. Not hypertensive overnight. Currently on Coreg. 5. Anemia Hemoglobin similar to previous. Chronic. Repeat in the morning. 6. Diabetes Continue to monitor glucose, especially if patient is not eating as much. Hypoglycemia protocol. Continue current sliding scale. 7. DVT prophylaxis Heparin subq. Continue teds and encourage oob with ambulation. Plan/VTE VTE Prophylaxis Ordered?: Yes (Teds. ) Plan Diagnostics: Repeat Labs in AM Discussed with patient to continue to take medication, eat, drink and sit up in chair. Discussed it is important to work with physical therapy. Importance for discharge. He agreed. VS, I&O, 24H, Fishbone Vital Signs/I&O Vital Signs Date Time Temp Pulse Resp B/P (MAP) Pulse Ox O2 Delivery O2 Flow Rate FiO2 12/17/16 14:00 97.9 66 17 109/72 (84) 94 Room Air Laboratory Data 24H LABS Laboratory Tests 2 12/16/16 21:24: Bedside Glucose (Misc Panel) 141H 12/17/16 11:31: Bedside Glucose (Misc Panel) 116H Microbiology Microbiology 12/08/16 Gastrointestinal Tract Panel (PCR) - Final, Complete GME ATTESTATION GME ATTESTATION NM have both independently examined this patient as well as reviewed the dictated note. I have discussed in detail with the resident the findings and plan of treatment as documented in the residents note. Patient with ESRD, nephrology following, complicated social situation. I will continue to follow the patient and offer further guidance to the patients care as necessary during this hospital stay. NORRIS GARCIA DO Dec 17, 2016 16:30 ZENA CHANEL MD Jan 17, 2017 17:05
[2016-12-17 22:00] VITALS: BP 115/73
[2016-12-18 06:00] VITALS: BP 130/85
[2016-12-18] MEDS: HEPARIN SOD (PORCINE) 5000 UNITS/ML VIAL SQ SCH ×3 (06:26→21:43)
[2016-12-18] MEDS: HumaLOG INSULIN (NovoLOG) PER UNIT SC SCH ×3 (09:04→17:30)
[2016-12-18] MEDS: ATORVASTATIN 20 MG TAB PO SCH (09:31)
[2016-12-18] MEDS: SPIRONOLACTONE 25 MG TAB PO SCH (09:31)
[2016-12-18] MEDS: CARVedilol 6.25 MG TAB PO SCH ×2 (09:31→21:42)
[2016-12-18] MEDS: SERTRALINE HCL 25 MG TABLET PO SCH (09:31)
[2016-12-18] MEDS: ASPIRIN 81 MG ENTERIC TAB PO SCH (09:31)
[2016-12-18 14:00] VITALS: BP 102/56
[2016-12-18] MEDS: LOPERAMIDE 2 MG CAP PO PRN (21:42)
[2016-12-18 22:00] VITALS: BP 122/82
[2016-12-19 06:00] VITALS: BP 117/76
[2016-12-19] MEDS: HEPARIN SOD (PORCINE) 5000 UNITS/ML VIAL SQ SCH ×3 (06:04→21:17)
[2016-12-19] MEDS: HumaLOG INSULIN (NovoLOG) PER UNIT SC SCH ×3 (07:30→17:30)
[2016-12-19] MEDS: SERTRALINE HCL 25 MG TABLET PO SCH ×2 (08:11→08:27)
[2016-12-19] MEDS: SPIRONOLACTONE 25 MG TAB PO SCH ×2 (08:11→08:26)
[2016-12-19] MEDS: ASPIRIN 81 MG ENTERIC TAB PO SCH ×2 (08:11→08:27)
[2016-12-19] MEDS: ATORVASTATIN 20 MG TAB PO SCH ×2 (08:11→08:27)
[2016-12-19] MEDS: CARVedilol 6.25 MG TAB PO SCH ×3 (08:12→20:22)
[2016-12-19 09:41] LABS: BASO # 0.1 10^3/uL (0.0-0.2); EOS # 0.5 10^3/uL (0.0-0.50); EOS % 7.1 % (0.0-3.0); IMMATURE GRANULOCYTE % 0.7 % (0-0); LYMPH # 0.9 10^3/uL (1.5-4.5); LYMPH % 13.1 % (24.0-44.0); MEAN CORPUSCULAR HGB CONC 32.4 g/dl (32.0-36.5); MEAN CORPUSCULAR VOLUME 83.5 fl (80.0-96.0); MONO # 0.9 10^3/uL (0.0-0.8); MONO % 13.1 % (0.0-5.0); NEUTROPHILS # 4.4 10^3/uL (1.8-7.7); PLATELET COUNT, AUTOMATED 169 10^3/uL (150-450); RED CELL DISTRIBUTION WIDTH 15.9 % (11.5-14.5); WHITE BLOOD COUNT 6.8 10^3/uL (4.0-10.0)
[2016-12-19 10:08] LABS: ALBUMIN 3.3 GM/DL (3.2-5.2); CALCIUM LEVEL 9.2 MG/DL (8.8-10.2); CREATININE FOR GFR 6.22 MG/DL (0.70-1.30); GLOMERULAR FILTRATION RATE 9.7 (>49); PHOSPHORUS LEVEL 2.5 MG/DL (2.5-4.9); POTASSIUM SERUM 3.9 MEQ/L (3.5-5.1)
[2016-12-19] MEDS ORDERED: HEPARIN 1,000 UNITS/ML 10ML VIAL (FOR RADIOLOGY& DIALYSIS ONLY) IV ONE (11:15)
[2016-12-19 14:00] VITALS: BP 125/81
[2016-12-19] MEDS: LOPERAMIDE 2 MG CAP PO PRN (20:22)
[2016-12-20 06:00] VITALS: BP 128/85
[2016-12-20] MEDS: HEPARIN SOD (PORCINE) 5000 UNITS/ML VIAL SQ SCH ×3 (06:22→21:17)
--- NOTE | 2016-12-20 07:04 | IPN ---
DATE OF VISIT: 12/19/2016 SUBJECTIVE: The patient was seen and examined at the bedside this morning during hemodialysis to see the patient was tolerating the hemodialysis procedure well. There were no active complaints. REVIEW OF SYSTEMS: The patient denies any fever, chills, rigors, headaches, nausea or vomiting, chest pain, shortness of breath, pain in the abdomen, constipation or diarrhea. The rest of the review of systems is negative. OBJECTIVE: VITAL SIGNS: Temperature 97.5 degrees Fahrenheit, blood pressure 117/76, pulse 66, respiratory rate 18, saturating 98% on room air. Intake and output is not yet recorded. Weight on the bed scale is 86.9 mg. PHYSICAL EXAMINATION: GENERAL: The patient is awake, alert and oriented times three, laying in bed getting hemodialysis done. HEAD/NECK: Extraocular muscles intact, pupils equal, round, and reactive to light. The patient has bilateral temporal wasting. He has lost some weight as compared with the last time I saw him. NECK: Supple, there is no jugular venous distention (JVD). CARDIOVASCULAR: S1, S2. Regular rate. The patient has a defibrillator present in the left anterior chest wall. RESPIRATORY: Chest is clear to auscultation bilaterally. Bilateral equal air entry, no rales or rhonchi. ABDOMEN: Soft, obese, positive bowel sounds. Nontender, no ascites, no organomegaly. MUSCULOSKELETAL: No clubbing or cyanosis. Pulses are 2+. No edema of the bilateral lower extremities. CENTRAL NERVOUS SYSTEM (NEWSPAPER DISTRIBUTOR SUPERVISOR): No focal neurological deficits. Power is 5/5 in all extremities. PSYCHIATRIC: Normal mood and affect. LABORATORY REVIEW: CBC showed WBC 6.8, hemoglobin 11.1, platelets 169. Basic metabolic profile (BMP) shows sodium 136, potassium 3.9, chloride 100, bicarbonate 29, BUN 32, creatinine 6.2, calcium 9.2, phosphorus 2.5, albumin 3.3. CURRENT INPATIENT MEDICATIONS: The patient's medications were all reviewed by me. There is no change in the medications today as compared with the last time. ASSESSMENT: This is a 61-year-old male with past medical history of end-stage renal disease on hemodialysis. He was brought to the hospital this time because of weakness, inability to walk and missing multiple hemodialysis sessions. PLAN: 1. End-stage renal disease on hemodialysis. The patient continues to tolerate Monday, Monday, Monday hemodialysis. We should try to do an ultrafiltration of about 1.5 liters as tolerated by his blood pressure. Electrolytes are within acceptable range. 2. Hypertension. Blood pressure is controlled with the current regimen of Coreg 6. 25 mg by mouth twice a day. 3. Anemia and end-stage renal disease. The patient's hemoglobin is 11.1 which is acceptable, no need for Aranesp administration at this time. DISCHARGE PLANNING: It is okay to discharge the patient from the nephrology standpoint whenever a bed is available. The patient is currently on alternate level of care.
[2016-12-20] MEDS: HumaLOG INSULIN (NovoLOG) PER UNIT SC SCH ×3 (07:30→17:30)
[2016-12-20 10:26] VITALS: BP 126/81
[2016-12-20] MEDS: ATORVASTATIN 20 MG TAB PO SCH (10:30)
[2016-12-20] MEDS: CARVedilol 6.25 MG TAB PO SCH ×2 (10:30→20:52)
[2016-12-20] MEDS: SPIRONOLACTONE 25 MG TAB PO SCH (10:30)
[2016-12-20] MEDS: SERTRALINE HCL 25 MG TABLET PO SCH (10:30)
[2016-12-20] MEDS: ASPIRIN 81 MG ENTERIC TAB PO SCH (10:30)
[2016-12-20] MEDS: LOPERAMIDE 2 MG CAP PO PRN (10:33)
[2016-12-20 14:00] VITALS: BP 94/62
[2016-12-20 22:00] VITALS: BP 113/74
[2016-12-21] MEDS: HEPARIN SOD (PORCINE) 5000 UNITS/ML VIAL SQ SCH ×3 (05:23→21:30)
[2016-12-21 06:00] VITALS: BP 115/63
[2016-12-21] MEDS: ATORVASTATIN 20 MG TAB PO SCH (06:16)
[2016-12-21] MEDS: SERTRALINE HCL 25 MG TABLET PO SCH (06:16)
[2016-12-21] MEDS: SPIRONOLACTONE 25 MG TAB PO SCH (06:16)
[2016-12-21] MEDS: ASPIRIN 81 MG ENTERIC TAB PO SCH (06:16)
[2016-12-21] MEDS: HumaLOG INSULIN (NovoLOG) PER UNIT SC SCH ×3 (07:30→18:21)
[2016-12-21] MEDS: CARVedilol 6.25 MG TAB PO SCH ×2 (08:34→20:42)
[2016-12-21] MEDS ORDERED: HEPARIN 1,000 UNITS/ML 10ML VIAL (FOR RADIOLOGY& DIALYSIS ONLY) IV ONE (12:00)
[2016-12-21 15:35] VITALS: BP 117/73
--- NOTE | 2016-12-21 18:27 | IPN ---
DATE: 12/21/2016 SUBJECTIVE: The patient was seen and examined at the bedside this morning during hemodialysis procedure. He was tolerating the hemodialysis procedure well. There were no active complaints. REVIEW OF SYSTEMS: The patient denies any fever, chills, rigors, headaches, chest pain, shortness of breath, pain in the abdomen, constipation or diarrhea. The rest of the review of systems is negative. OBJECTIVE: VITAL SIGNS: Temperature 98.8 degrees Fahrenheit, blood pressure 115/63, pulse 69, respiratory rate 17, saturating 100% on room air. Intake and output: Urine output was not recorded. Weight on the bed scale was 81.8 kg yesterday. PHYSICAL EXAMINATION: GENERAL: The patient is awake, alert and oriented times three, laying in bed getting hemodialysis done. No apparent distress. HEAD/NECK: Extraocular muscles intact, pupils equal, round, and reactive to light. The patient has some temporal wasting. NECK: Supple, there is no jugular venous distention (JVD). CARDIOVASCULAR: S1, S2. Regular rate. No murmur, rub or gallop. There is a left anterior chest wall defibrillator. RESPIRATORY: Chest is clear to auscultation bilaterally. Bilateral equal air entry, no rales or rhonchi. ABDOMEN: Soft, obese, positive bowel sounds. Nontender, no ascites, no organomegaly. MUSCULOSKELETAL: No clubbing or cyanosis. Pulses are 2+. No edema of the bilateral lower extremities. CENTRAL NERVOUS SYSTEM (TEST MAN): No focal neurological deficits. Power is 5/5 in all extremities. PSYCHIATRIC: Normal mood and affect. LABORATORY REVIEW: CBC was done on 12/19/2016. Hemoglobin was 11.1. Basic metabolic profile (BMP) done on 12/19/2016 also showed a potassium of 3.9. There is no recent lab available at this time. CURRENT INPATIENT MEDICATIONS: The patient's medications were all reviewed by me. There is no change in the medications today as compared with the last visit. ASSESSMENT: This is a 61-year-old male with past medical history of end-stage renal disease on hemodialysis. He was brought to the hospital because of weakness, inability to walk and missing multiple hemodialysis sessions. PLAN: 1. End-stage renal disease . The patient's dialysis days are Monday, Monday and Monday. He is being dialyzed today according to his regimen. Ultrafiltration goal will be around 1.5 kg as tolerated by his blood pressure. 2. Hypertension. Blood pressure is well controlled at this time with current dose of Coreg 6.25 mg by mouth twice a day. Ultrafiltration and hemodialysis also helps improve the blood pressure. 3. Anemia and end-stage renal disease. Hemoglobin is optimal at this time. No need of Aranesp administration at this time. DISPOSITION: Whenever the patient is cleared by physical therapy (PT) , he can be discharged from nephrology standpoint.
[2016-12-21 22:00] VITALS: BP 107/55
[2016-12-22] MEDS: HEPARIN SOD (PORCINE) 5000 UNITS/ML VIAL SQ SCH ×3 (05:06→21:15)
[2016-12-22 06:00] VITALS: BP 130/81
[2016-12-22] MEDS: HumaLOG INSULIN (NovoLOG) PER UNIT SC SCH ×3 (08:39→16:59)
[2016-12-22 10:00] VITALS: BP 132/82
[2016-12-22] MEDS: SERTRALINE HCL 25 MG TABLET PO SCH (10:06)
[2016-12-22] MEDS: ATORVASTATIN 20 MG TAB PO SCH (10:06)
[2016-12-22] MEDS: SPIRONOLACTONE 25 MG TAB PO SCH (10:06)
[2016-12-22] MEDS: ASPIRIN 81 MG ENTERIC TAB PO SCH (10:06)
[2016-12-22] MEDS: CARVedilol 6.25 MG TAB PO SCH ×2 (10:06→20:37)
[2016-12-22] MEDS: LOPERAMIDE 2 MG CAP PO PRN (13:43)
[2016-12-22 14:00] VITALS: BP 115/75
[2016-12-22 22:00] VITALS: BP 108/70
[2016-12-23] MEDS: SPIRONOLACTONE 25 MG TAB PO SCH (05:54)
[2016-12-23] MEDS: HEPARIN SOD (PORCINE) 5000 UNITS/ML VIAL SQ SCH ×3 (05:54→21:00)
[2016-12-23] MEDS: CARVedilol 6.25 MG TAB PO SCH ×2 (05:55→20:58)
[2016-12-23] MEDS: SERTRALINE HCL 25 MG TABLET PO SCH (05:55)
[2016-12-23] MEDS: ASPIRIN 81 MG ENTERIC TAB PO SCH (05:55)
[2016-12-23] MEDS: ATORVASTATIN 20 MG TAB PO SCH (05:55)
[2016-12-23] MEDS: LOPERAMIDE 2 MG CAP PO PRN (05:59)
[2016-12-23 06:00] VITALS: BP 129/87
[2016-12-23] MEDS: HumaLOG INSULIN (NovoLOG) PER UNIT SC SCH ×3 (07:30→17:30)
[2016-12-23] MEDS ORDERED: HEPARIN 1,000 UNITS/ML 10ML VIAL (FOR RADIOLOGY& DIALYSIS ONLY) IV ONE (11:00)
[2016-12-23 11:09] LABS: BASO # 0.1 10^3/uL (0.0-0.2); BASO % 0.9 % (0.0-1.0); EOS # 0.5 10^3/uL (0.0-0.50); EOS % 7.6 % (0.0-3.0); IMMATURE GRANULOCYTE % 0.6 % (0-0); LYMPH # 0.9 10^3/uL (1.5-4.5); LYMPH % 13.3 % (24.0-44.0); MEAN CORPUSCULAR HEMOGLOBIN 26.9 pg (27.0-33.0); MEAN CORPUSCULAR HGB CONC 31.6 g/dl (32.0-36.5); MEAN CORPUSCULAR VOLUME 85.3 fl (80.0-96.0); MONO % 14.4 % (0.0-5.0); NEUTROPHILS # 4.4 10^3/uL (1.8-7.7); NEUTROPHILS % 63.2 % (36.0-66.0); PLATELET COUNT, AUTOMATED 181 10^3/uL (150-450); RED CELL DISTRIBUTION WIDTH 15.9 % (11.5-14.5)
[2016-12-23 11:35] LABS: ALBUMIN 3.3 GM/DL (3.2-5.2); CREATININE FOR GFR 5.57 MG/DL (0.70-1.30); GLOMERULAR FILTRATION RATE 11.1 (>49); PHOSPHORUS LEVEL 2.9 MG/DL (2.5-4.9); POTASSIUM SERUM 4.2 MEQ/L (3.5-5.1)
--- NOTE | 2016-12-23 13:17 | IPN ---
DATE: 12/23/2016 SUBJECTIVE: Patient was seen and examined at the bedside today morning during hemodialysis. Patient was tolerating the hemodialysis procedure well. No active complaints at this time. REVIEW OF SYSTEMS: Patient denies any fever, chills, rigors, headache, chest pain, shortness of breath, pain in abdomen, constipation or diarrhea. Rest of the review of systems is negative. OBJECTIVE: VITAL SIGNS: Temperature is 97.6 degrees Fahrenheit, Blood pressure is 129/87. Pulse is 74. Respiratory rate of 18. Saturating 97% on room air. INTAKE AND OUTPUT: Urine output is not recorded. Weight on the bed scale is 82.3 kg. PHYSICAL EXAMINATION: GENERAL: Patient is awake, alert and oriented times three, laying in bed getting hemodialysis done. HEAD AND NECK EXAM: Extraocular muscles intact. Pupils equal, round and reactive to light. Patient has bitemporal wasting. He has lost some weight. Neck is supple. There is no jugular venous distention (JVD). CARDIOVASCULAR: S1, S2, regular rate. No murmur, rub or gallop. Patient has a left anterior chest wall defibrillator. RESPIRATORY: Chest is clear to auscultation bilaterally. Bilateral equal air entry. No rales or rhonchi. ABDOMEN: Is soft, obese. Positive bowel sounds. Nontender. No ascites. No organomegaly. MUSCULOSKELETAL: No clubbing or cyanosis. Pulses are 2+. No edema of the bilateral lower extremities. CENTRAL NERVOUS SYSTEM (HEEL SORTER): No focal neurological deficit. Power is 5/5 in bilateral upper extremities. PSYCHIATRIC: Patient has a depressed mood. LABORATORY REVIEW: Today's labs are pending. They are not back yet. CURRENT INPATIENT MEDICATIONS: Patient's medications were all reviewed by me. There is no change in the medications today as compared with yesterday. ASSESSMENT: 61-year-old male with past medical history of end-stage renal disease on hemodialysis brought to the hospital because of weakness, inability to walk and missing multiple hemodialysis sessions. PLAN: 1. End-stage renal disease on hemodialysis. Patient is getting dialysis according to Monday, Monday, Monday schedule. He is being dialyzed again today. Ultrafiltration goal will be 1.5 kg as tolerated by patient's blood pressure. 2. Hypertension. Blood pressure is controlled at this time. Continue current dose of Coreg 6.25 mg by mouth twice a day. 3. Anemia and end-stage renal disease. Patient's hemoglobin is above 11. He has not required Aranesp administration during this hospitalization. DISPOSITION: Patient is pending discharge home. Once he is cleared by physical therapy, he would require services at home.
[2016-12-23 14:00] VITALS: BP 135/79
[2016-12-23 22:00] VITALS: BP 111/70
[2016-12-24 06:00] VITALS: BP 128/81
[2016-12-24] MEDS: HEPARIN SOD (PORCINE) 5000 UNITS/ML VIAL SQ SCH ×3 (06:33→22:00)
[2016-12-24] MEDS: HumaLOG INSULIN (NovoLOG) PER UNIT SC SCH ×3 (09:00→18:00)
[2016-12-24] MEDS: SERTRALINE HCL 25 MG TABLET PO SCH (09:46)
[2016-12-24] MEDS: CARVedilol 6.25 MG TAB PO SCH ×2 (09:47→20:33)
[2016-12-24] MEDS: ATORVASTATIN 20 MG TAB PO SCH (09:47)
[2016-12-24] MEDS: SPIRONOLACTONE 25 MG TAB PO SCH (09:47)
[2016-12-24] MEDS: ASPIRIN 81 MG ENTERIC TAB PO SCH (09:47)
[2016-12-24 14:00] VITALS: BP 110/70
[2016-12-24] MEDS: LOPERAMIDE 2 MG CAP PO PRN (15:28)
--- NOTE | 2016-12-24 15:29 | IPN ---
DATE: 12/24/2016 SUBJECTIVE: The patient tells me that he feels well. He has no complaints at the time and is doing quite well. He tells me that he thinks, though, he is getting close to go home. OBJECTIVE: VITAL SIGNS: Temperature 97.8, pulse 78, respiratory rate 18, because 128/81, oxygen saturation 100% on room air. GENERAL: He is a disheveled elderly man, appears older than stated age, lying flat in bed, resting peacefully as I enter the room. He does not appear to be in any acute distress. He is easily awakened to verbal stimuli and oriented times three. HEENT: Poor dentition. Moist mucous membranes. No elevated of central venous pressure (CVP). CARDIOVASCULAR EXAM: S1, S2 regular. RESPIRATORY EXAM: Clear. ABDOMINAL EXAM: Benign. EXTREMITIES: No clubbing, cyanosis, or appreciable edema. He appears mildly wasted. LABORATORY STUDIES: From yesterday, WBC is 7.0, hemoglobin 10.8, platelet count 181. Chemistry panel: Sodium 139, potassium 4.2, chloride 101, bicarbonate 28, BUN 27, creatinine 5.5. No new microbiology or imaging. ASSESSMENT AND PLAN: This is a 61-year-old man with end-stage renal disease, on hemodialysis Monday, Monday, Monday, severe systolic congestive heart failure, who was initially admitted for missed dialysis and had his hospital course complicated by acute cerebrovascular accident (CVA), status post TPA. Problem #1: End-stage renal disease, on hemodialysis. Nephrology's help is greatly appreciated. The patient is continued on regularly scheduled hemodialysis Monday, Monday, Monday. Problem #2: Severe systolic congestive heart failure. His volume status is optimized by hemodialysis. He is continued on carvedilol, spironolactone. Curiously, he is not on an angiotensin-converting enzyme (REUBEN) inhibitor. Could consider initiation if okay with nephrology. Problem #3: Cerebrovascular accident. The patient is on aspirin and statin, status post TPA. Problem #4: Depression. The patient is on Zoloft. Problem #5: Coronary artery disease. The patient is on aspirin, statin and a beta joel. Problem #6: Diabetes, controlled. The patient is on sliding scale insulin. Problem #7: Deep vein thrombosis (DVT) prophylaxis. The patient is on heparin, which he intermittently refuses. DISPOSITION: He continues to work with physical therapy. He has declined rehabilitation spots. He is approaching discharge once cleared by physical therapy.
[2016-12-24 22:00] VITALS: BP 107/72
[2016-12-25 06:00] VITALS: BP 135/87
[2016-12-25] MEDS: HEPARIN SOD (PORCINE) 5000 UNITS/ML VIAL SQ SCH ×3 (06:00→22:18)
[2016-12-25 07:10] LABS: FREE T4 2.02 NG/DL (0.76-1.46)
[2016-12-25] MEDS: HumaLOG INSULIN (NovoLOG) PER UNIT SC SCH ×3 (08:25→17:45)
[2016-12-25] MEDS: SERTRALINE HCL 25 MG TABLET PO SCH (08:38)
[2016-12-25] MEDS: CARVedilol 6.25 MG TAB PO SCH ×2 (08:38→21:59)
[2016-12-25] MEDS: ASPIRIN 81 MG ENTERIC TAB PO SCH (08:38)
[2016-12-25] MEDS: SPIRONOLACTONE 25 MG TAB PO SCH (08:39)
[2016-12-25] MEDS: ATORVASTATIN 20 MG TAB PO SCH (08:39)
[2016-12-25 14:00] VITALS: BP 98/66
[2016-12-25 16:26] VITALS: BP 90/60
[2016-12-25 18:00] VITALS: BP 110/70
[2016-12-25 22:00] VITALS: BP 123/78
[2016-12-26 02:13] VITALS: BP 100/51
[2016-12-26 06:00] VITALS: BP 120/77
--- NOTE | 2016-12-26 06:24 | IPN ---
DATE: 12/24/2016 SUBJECTIVE: Mr. Weber is seen this morning on his bedside. He is lying in the bed without any acute distress. He has history of noncompliance with dialysis treatments. He was admitted with generalized weakness and also had a stroke. He is not ambulating much and has lost significant amount of weight since his admission. He weighed about 114.6 kg on November 25 and today his weight is 80.2 kg, which is a loss of 34 kg in about four weeks. The patient denies any vomiting or diarrhea. However, he is not eating much. PHYSICAL EXAMINATION: Temperature 97.8 degrees Fahrenheit, heart rate 72 per minute and respiratory rate 18/min.. Oxygen saturation is 100% and blood pressure 128/80 mmHg. Head is atraumatic. Neck is supple and without jugular venous distention (JVD) or thyroid enlargement. Heart sounds regular and lungs clear to auscultation. Abdomen is soft and nontender and without a palpable organomegaly. Extremities without cyanosis or clubbing. Neurologically the patient is awake and alert. His slurred speech has improved. LABORATORY DATA: His labs done yesterday showed a WBC count 7.0, hemoglobin 10.8 and hematocrit 34.2. Sodium 139 and potassium 4.2. BUN 27 and creatinine 5.57. Albumin was 3.3. PROBLEMS: 1. End-stage renal disease. The patient underwent hemodialysis yesterday. His next dialysis will be scheduled for 12/26/16 His volume status is very well compensated. 2. Anemia. His anemia is mild and stable and does not need any specific intervention. 3. Hypertension. Blood pressure is very well controlled on current antihypertensive medications which will be continued. 4. Weight loss. The patient has significant weight loss during this admission. He did have some volume overload. However, he has lost body weight due to which I am quite concerned. I have encouraged him for increased intake. However, he is not eating much. I suggest to get dietary consult for possible calorie count. MTDD
[2016-12-26] MEDS: HEPARIN SOD (PORCINE) 5000 UNITS/ML VIAL SQ SCH ×3 (07:05→22:05)
[2016-12-26] MEDS: HumaLOG INSULIN (NovoLOG) PER UNIT SC SCH ×3 (07:30→17:30)
[2016-12-26] MEDS: SPIRONOLACTONE 25 MG TAB PO SCH (08:12)
[2016-12-26] MEDS: SERTRALINE HCL 25 MG TABLET PO SCH (08:12)
[2016-12-26] MEDS: ATORVASTATIN 20 MG TAB PO SCH (08:12)
[2016-12-26] MEDS: CARVedilol 6.25 MG TAB PO SCH ×2 (08:13→21:53)
[2016-12-26] MEDS: ASPIRIN 81 MG ENTERIC TAB PO SCH (08:13)
[2016-12-26] MEDS ORDERED: HEPARIN 1,000 UNITS/ML 10ML VIAL (FOR RADIOLOGY& DIALYSIS ONLY) IV ONE (12:15)
[2016-12-26] MEDS: LOPERAMIDE 2 MG CAP PO PRN (14:42)
[2016-12-26 22:00] VITALS: BP 105/67
[2016-12-27 06:00] VITALS: BP 122/75
[2016-12-27] MEDS: HEPARIN SOD (PORCINE) 5000 UNITS/ML VIAL SQ SCH ×3 (06:57→22:06)
[2016-12-27] MEDS: HumaLOG INSULIN (NovoLOG) PER UNIT SC SCH ×3 (07:30→16:54)
--- NOTE | 2016-12-27 10:18 | IPN ---
DATE: 12/26/2016 Mr. Weber is seen during hemodialysis this morning. He did not eat breakfast at all. He denies any nausea or vomiting; however, he does not like hospital food, particularly that he has been getting mechanically soft and pureed food. He denies any dyspnea or chest pain. The patient has lost 70 pounds of weight since admission. PHYSICAL EXAMINATION: Temperature 98.5 degrees Fahrenheit, heart rate 70 per minute and respiratory rate 16 per minute. Blood pressure 120/77 mmHg and oxygen saturation 97% on room air. Head is atraumatic. Neck is supple and without JVD or thyroid enlargement. Ears, nose and throat are unremarkable. Heart exam reveals regular S1 and S2. Lungs clear to auscultation. Abdomen soft and nontender and without palpable organomegaly. Bowel sounds are normal. Extremities have no cyanosis or clubbing. Neurologically, he is awake, alert and oriented times three. Slurred speech that he had following stroke has now improved. PROBLEMS: 1. End-stage renal disease. The patient remains dialysis dependent and is being dialyzed today. He is tolerating his dialysis treatment well. 2. Hypertension. Blood pressure is very well controlled and no changes in antihypertensives are being made. 3. Anemia. There are no recent labs; however, his anemia has been well controlled and stable. We will check his CBC again on Monday. 4. Significant weight loss and malnutrition. The patient has not been eating well and I am switching him to a regular diet. We will see how that improves his nutrition. I feel that the patient is able to swallow regular food without any difficulty now. DISPOSITION: The patient has been waiting for shelter placement due to his inability to care for himself.
[2016-12-27] MEDS: ATORVASTATIN 20 MG TAB PO SCH (10:23)
[2016-12-27] MEDS: CARVedilol 6.25 MG TAB PO SCH ×2 (10:23→22:05)
[2016-12-27] MEDS: ASPIRIN 81 MG ENTERIC TAB PO SCH (10:23)
[2016-12-27] MEDS: SPIRONOLACTONE 25 MG TAB PO SCH (10:23)
[2016-12-27] MEDS: SERTRALINE HCL 25 MG TABLET PO SCH (10:23)
[2016-12-27 22:03] VITALS: BP 116/81
[2016-12-28 06:00] VITALS: BP 129/81
[2016-12-28] MEDS: ASPIRIN 81 MG ENTERIC TAB PO SCH (06:34)
[2016-12-28] MEDS: CARVedilol 6.25 MG TAB PO SCH ×2 (06:35→20:18)
[2016-12-28] MEDS: ATORVASTATIN 20 MG TAB PO SCH (06:35)
[2016-12-28] MEDS: SPIRONOLACTONE 25 MG TAB PO SCH (06:35)
[2016-12-28] MEDS: SERTRALINE HCL 25 MG TABLET PO SCH (06:36)
[2016-12-28] MEDS: HEPARIN SOD (PORCINE) 5000 UNITS/ML VIAL SQ SCH ×3 (06:36→21:28)
[2016-12-28] MEDS: HumaLOG INSULIN (NovoLOG) PER UNIT SC SCH ×3 (07:30→17:30)
[2016-12-28 08:22] LABS: MEAN CORPUSCULAR HEMOGLOBIN 27.1 pg (27.0-33.0); MEAN CORPUSCULAR HGB CONC 31.9 g/dl (32.0-36.5); MEAN CORPUSCULAR VOLUME 84.9 fl (80.0-96.0); PLATELET COUNT, AUTOMATED 176 10^3/uL (150-450); RED CELL DISTRIBUTION WIDTH 16.2 % (11.5-14.5); WHITE BLOOD COUNT 7.4 10^3/uL (4.0-10.0)
[2016-12-28 08:47] LABS: ALBUMIN 3.2 GM/DL (3.2-5.2); CALCIUM LEVEL 9.2 MG/DL (8.8-10.2); CREATININE FOR GFR 5.58 MG/DL (0.70-1.30); PHOSPHORUS LEVEL 2.8 MG/DL (2.5-4.9); POTASSIUM SERUM 4.2 MEQ/L (3.5-5.1)
[2016-12-28] MEDS ORDERED: HEPARIN 1,000 UNITS/ML 10ML VIAL (FOR RADIOLOGY& DIALYSIS ONLY) IV ONE (10:45)
[2016-12-28 20:00] VITALS: BP 108/80
[2016-12-29 06:00] VITALS: BP 130/70
[2016-12-29] MEDS: HEPARIN SOD (PORCINE) 5000 UNITS/ML VIAL SQ SCH ×3 (06:00→21:10)
[2016-12-29] MEDS: HumaLOG INSULIN (NovoLOG) PER UNIT SC SCH ×3 (07:56→17:08)
[2016-12-29] MEDS: ASPIRIN 81 MG ENTERIC TAB PO SCH (09:34)
[2016-12-29] MEDS: ATORVASTATIN 20 MG TAB PO SCH (09:35)
[2016-12-29] MEDS: SERTRALINE HCL 25 MG TABLET PO SCH (09:35)
[2016-12-29] MEDS: CARVedilol 6.25 MG TAB PO SCH ×2 (09:35→20:26)
[2016-12-29] MEDS: SPIRONOLACTONE 25 MG TAB PO SCH (09:35)
--- NOTE | 2016-12-29 13:49 | IPNPDOC ---
Date Seen The patient was seen on 12/29/16. Progress Note SUBJECTIVE: Patient is a 61 yo seen at bedside, no new issues. Reviewed his DNR/ MOLST form without changes and thus updated yesterday. OBJECTIVE PHYSICAL EXAMINATION: VITAL SIGNS: Please see below. GENERAL: NAD HEENT: PERRLA CARDIOVASCULAR: RRR. RESPIRATORY: CTA B. ABDOMINAL: Soft, NT/ND, normoactive bowel sounds EXTREMITIES: no edema/non tender NEUROLOGICAL: CN II-XII intact PSYCHOLOGICAL: negative LABORATORY DATA: Please see below. DVT prophylaxis ordered?: yes ASSESSMENT AND PLAN: This is a 61-year-old man with end-stage renal disease, on hemodialysis Monday, Monday, Monday, severe systolic congestive heart failure , who was initially admitted for missed dialysis and had his hospital course complicated by acute cerebrovascular accident (CVA), status post TPA. Updated and renewed DNR order. Problem #1: End-stage renal disease, on hemodialysis. Nephrology's help is greatly appreciated. The patient is continued on regularly scheduled hemodialysis Monday, Monday, Monday. Problem #2: Severe systolic congestive heart failure. His volume status is optimized by hemodialysis. He is continued on carvedilol, spironolactone. Curiously, he is not on an angiotensin-converting enzyme (REUBEN) inhibitor. Could consider initiation if okay with nephrology. Problem #3: Cerebrovascular accident. The patient is on aspirin and statin, status post TPA. Problem #4: Depression. The patient is on Zoloft. Problem #5: Coronary artery disease. The patient is on aspirin, statin and a beta joel. Problem #6: Diabetes, controlled. The patient is on sliding scale insulin. Problem #7: Deep vein thrombosis (DVT) prophylaxis. Heparin, which he intermittently refuses. DISPOSITION: He continues to work with physical therapy. He has declined rehabilitation spots. He is approaching discharge once cleared by physical therapy. VS, I&O, 24H, Fishbone Vital Signs/I&O Vital Signs Date Time Temp Pulse Resp B/P (MAP) Pulse Ox O2 Delivery O2 Flow Rate FiO2 12/29/16 11:15 Room Air 12/29/16 09:35 130/70 12/29/16 06:00 98.0 70 18 96 I&O- Last 24 Hours up to 6 AM 12/30/16 06:00 Intake Total 800 ml Output Total 0 ml Balance 800 ml Laboratory Data 24H LABS Laboratory Tests 2 12/28/16 13:57: Bedside Glucose (Misc Panel) 104 12/28/16 16:18: Bedside Glucose (Misc Panel) 156H 12/28/16 20:38: Bedside Glucose (Misc Panel) 168H 12/29/16 06:37: Bedside Glucose (Misc Panel) 120H 12/29/16 11:44: Bedside Glucose (Misc Panel) 115 OSCAR ESCALANTE DO Dec 29, 2016 13:49
--- NOTE | 2016-12-29 15:37 | IPN ---
DATE: 12/28/2016 Mr. Weber is seen this morning during hemodialysis. He is feeling well and currently resting during dialysis treatment. He has started to eat better since we switched him to regular diet. He denies any dyspnea, chest pain, nausea, or vomiting. PHYSICAL EXAMINATION: Temperature 97 degrees Fahrenheit, heart rate 72 per minute, respiratory rate 18 per minute, blood pressure 129/80 mm of mercury, and oxygen saturation 99% on room air. Head is atraumatic. Neck is supple and without jugular venous distention (JVD) or thyroid enlargement. Heart sounds regular and lungs clear to auscultation. Abdomen is soft and nontender. There is no palpable organomegaly. Extremities have no cyanosis or clubbing. His arteriovenous (AV) fistula is working well. Neurologically, he is awake and at his baseline mentation. Today's labs show WBC count 7.4, hemoglobin 11.5, and hematocrit 36.1. Sodium 136, potassium 4.2, BUN 32, and creatinine 5.58. PROBLEMS: 1. End-stage renal disease. The patient is being dialyzed today, and he is tolerating his dialysis treatment well. Volume status is well-compensated, and electrolytes are within normal range. 2. Hypertension. Blood pressure control is optimal at this point on current antihypertensive medications, and no changes are indicated. 3. Weight loss and malnutrition. The patient was not eating well, and we changed his diet to regular diet. He seems to be eating better now and will continue to monitor his weight closely. 4. Anemia. His anemia is mild and stable and does not need any intervention at this point. 5. Diabetes. His diabetes remains well controlled, and we will continue to monitor and provide coverage as needed. 6. Generalized weakness and deconditioning with stroke. The patient continues to remain mostly bed bound. Will need to increase his activity. He is likely to benefit from long-term placement. [facility]
[2016-12-30 05:45] VITALS: BP 117/72
[2016-12-30] MEDS: SPIRONOLACTONE 25 MG TAB PO SCH (06:00)
[2016-12-30] MEDS: ATORVASTATIN 20 MG TAB PO SCH (06:00)
[2016-12-30] MEDS: SERTRALINE HCL 25 MG TABLET PO SCH (06:00)
[2016-12-30] MEDS: ASPIRIN 81 MG ENTERIC TAB PO SCH (06:00)
[2016-12-30] MEDS: CARVedilol 6.25 MG TAB PO SCH ×2 (06:01→21:13)
[2016-12-30] MEDS: HEPARIN SOD (PORCINE) 5000 UNITS/ML VIAL SQ SCH ×3 (06:01→22:19)
[2016-12-30] MEDS: HumaLOG INSULIN (NovoLOG) PER UNIT SC SCH ×3 (07:30→17:28)
[2016-12-30] MEDS ORDERED: HEPARIN 1,000 UNITS/ML 10ML VIAL (FOR RADIOLOGY& DIALYSIS ONLY) IV ONE (11:00)
--- NOTE | 2016-12-30 20:11 | IPN ---
DATE: 12/30/2016 Mr. Weber is seen this morning during hemodialysis on his bedside. He remains about the same and still not eating much even though his diet has been changed to regular food. He denies any nausea or vomiting. He has no dyspnea or chest pain. PHYSICAL EXAMINATION: Temperature 97.9 degrees Fahrenheit, heart rate 72 per minute and respiratory rate 16 per minute. Blood pressure 117/72 mmHg and oxygen saturation 95% on room air. Head: Is atraumatic. Neck is supple and without jugular venous distention (JVD) or thyroid enlargement. Ears, nose and throat are unremarkable. Heart: Sounds are regular and lungs clear to auscultation. Abdomen: Soft, nontender and without a palpable organomegaly. Bowel sounds are normal. Extremities have no cyanosis or clubbing. Skin has no rash or ulcers. PROBLEMS: 1. End-stage renal disease. The patient is being dialyzed today and he is tolerating his dialysis treatment very well. His labs were checked on Monday and they were all appropriate for end-stage renal disease. His electrolytes are within normal range. 2. Hypertension. Blood pressure control remains optimal and no changes are indicated. 3. Anemia. Anemia has not been an issue and no intervention is indicated. 4. Malnutrition. The patient continues to decline eating. He has lost a significant amount of weight. We have switched him to regular diet and will continue to encourage for eating regular meals. 5. Deconditioning and weakness. The patient remains SNF status and has been declining physical therapy.
[2016-12-31] MEDS: HEPARIN SOD (PORCINE) 5000 UNITS/ML VIAL SQ SCH ×3 (05:59→22:00)
[2016-12-31 06:00] VITALS: BP 110/75
[2016-12-31] MEDS: HumaLOG INSULIN (NovoLOG) PER UNIT SC SCH ×3 (09:00→17:09)
[2016-12-31] MEDS: SERTRALINE HCL 25 MG TABLET PO SCH (09:01)
[2016-12-31] MEDS: ASPIRIN 81 MG ENTERIC TAB PO SCH (09:01)
[2016-12-31] MEDS: SPIRONOLACTONE 25 MG TAB PO SCH (09:01)
[2016-12-31] MEDS: ATORVASTATIN 20 MG TAB PO SCH (09:01)
[2016-12-31] MEDS: CARVedilol 6.25 MG TAB PO SCH ×2 (09:01→20:33)
[2016-12-31 14:00] VITALS: BP 96/58
[2017-01-01] MEDS: HEPARIN SOD (PORCINE) 5000 UNITS/ML VIAL SQ SCH ×3 (05:49→21:25)
[2017-01-01 06:00] VITALS: BP 119/77
[2017-01-01] MEDS: SERTRALINE HCL 25 MG TABLET PO SCH (09:26)
[2017-01-01] MEDS: ASPIRIN 81 MG ENTERIC TAB PO SCH (09:26)
[2017-01-01] MEDS: SPIRONOLACTONE 25 MG TAB PO SCH (09:26)
[2017-01-01] MEDS: ATORVASTATIN 20 MG TAB PO SCH (09:26)
[2017-01-01] MEDS: CARVedilol 6.25 MG TAB PO SCH ×2 (09:26→21:24)
[2017-01-01] MEDS: HumaLOG INSULIN (NovoLOG) PER UNIT SC SCH ×3 (09:27→18:43)
[2017-01-01 14:00] VITALS: BP 108/62
[2017-01-02 06:00] VITALS: BP 125/74
[2017-01-02] MEDS: HEPARIN SOD (PORCINE) 5000 UNITS/ML VIAL SQ SCH ×4 (06:00→21:53)
[2017-01-02] MEDS: SPIRONOLACTONE 25 MG TAB PO SCH (06:21)
[2017-01-02] MEDS: CARVedilol 6.25 MG TAB PO SCH ×2 (06:22→21:00)
[2017-01-02] MEDS: ASPIRIN 81 MG ENTERIC TAB PO SCH (06:22)
[2017-01-02] MEDS: SERTRALINE HCL 25 MG TABLET PO SCH (06:22)
[2017-01-02] MEDS: ATORVASTATIN 20 MG TAB PO SCH (06:22)
[2017-01-02] MEDS: HumaLOG INSULIN (NovoLOG) PER UNIT SC SCH ×3 (07:30→17:30)
[2017-01-02 10:12] LABS: MEAN CORPUSCULAR HEMOGLOBIN 26.9 pg (27.0-33.0); MEAN CORPUSCULAR HGB CONC 32.2 g/dl (32.0-36.5); MEAN CORPUSCULAR VOLUME 83.4 fl (80.0-96.0); PLATELET COUNT, AUTOMATED 155 10^3/uL (150-450); RED CELL DISTRIBUTION WIDTH 15.9 % (11.5-14.5); WHITE BLOOD COUNT 6.2 10^3/uL (4.0-10.0)
[2017-01-02 10:36] LABS: ALBUMIN 3.1 GM/DL (3.2-5.2); ALBUMIN/GLOBULIN RATIO 0.97 (1.00-1.93); BILIRUBIN,TOTAL 1.1 MG/DL (0.2-1.0); CALCIUM LEVEL 8.9 MG/DL (8.8-10.2); CREATININE FOR GFR 5.97 MG/DL (0.70-1.30); GLOMERULAR FILTRATION RATE 10.2 (>49); POTASSIUM SERUM 4.3 MEQ/L (3.5-5.1); TOTAL PROTEIN 6.3 GM/DL (6.4-8.2)
[2017-01-02] MEDS ORDERED: HEPARIN 1,000 UNITS/ML 10ML VIAL (FOR RADIOLOGY& DIALYSIS ONLY) IV ONE (11:45)
--- NOTE | 2017-01-02 11:49 | IPN ---
DATE: 01/02/2017 SUBJECTIVE: The patient is seen this morning at the bedside on hemodialysis, tolerating his maintenance treatment well without any issue. His only complaint is that of frequent bowel movements, reported three bowel movements yesterday and stated that they were pasty to watery in nature. Otherwise, is tolerating oral intake. VITAL SIGNS: Temperature 97.0, pulse 71, respiratory rate 18, blood pressure 125/74, saturating 99% on room air. Intake and output: Intake yesterday was recorded as 780 mL and three recorded bowel movements. Weight on the bed scale today is 81.7 kg, which is decreased from the past several days. PHYSICAL EXAMINATION : The patient is seen on hemodialysis, comfortable and in no acute distress. HEAD/NECK: Extraocular muscles are intact. Mucous membranes are moist. Neck is supple. There is no jugular venous distention (JVD). HEART: S1, S2, regular. 2+ radial pulse. No edema in the extremities. LUNGS: Clear to auscultation bilaterally. He is comfortable on room air. ABDOMEN: Soft, obese, nontender. Bowel sounds are present and not hyperactive. Chest: defibrillator present L chest wall EXTREMITIES: No clubbing or edema. He had a fistula with thrill and bruit present in the RUE. NO edema in the peripheries. Neurologic: baseline mentation SKIN: No rashes. LABORATORY DATA: White count 6.2, hemoglobin 9.9, platelets 155. Sodium 136, potassium 4.3, bicarbonate 25, BUN 41. Liver function tests normal. Albumin 3.1. Glucose 143. INPATIENT MEDICATIONS: Reviewed by myself. There is no significant change from prior. ASSESSMENT AND PLAN: 1. End stage renal disease. The patient is receiving his maintenance treatment today and is tolerating it without issue. Goal infiltration today is 1.5 kg. We will continue to ultrafiltrate him based on volume status. Oral intake is encouraged. He has been complaining of a one day history of pasty to watery stools. If he continues to have the same, we will check GI PCR. His blood work was checked today and his electrolytes are stable. 2. Hypertension. Blood pressure is well controlled and he continues on carvedilol and spironolactone. 3. Anemia. Hemoglobin is at goal. 4. Frequent bowel movements. Three recorded bowel movement yesterday. The patient continues on loperamide as needed. If his bowel movements are persistently frequent, we will repeat a GI PCR. 5. Weight loss. The patient has lost significant weight during the hospitalization stay. He is on a regular diet and oral intake is encouraged. The patient will be seen on dialysis days only. [facility]
[2017-01-03 06:00] VITALS: BP 108/67
[2017-01-03] MEDS: HEPARIN SOD (PORCINE) 5000 UNITS/ML VIAL SQ SCH ×3 (06:00→21:48)
[2017-01-03] MEDS: ATORVASTATIN 20 MG TAB PO SCH (08:33)
[2017-01-03] MEDS: HumaLOG INSULIN (NovoLOG) PER UNIT SC SCH ×3 (08:33→17:35)
[2017-01-03] MEDS: ASPIRIN 81 MG ENTERIC TAB PO SCH (08:33)
[2017-01-03] MEDS: SPIRONOLACTONE 25 MG TAB PO SCH (08:33)
[2017-01-03] MEDS: CARVedilol 6.25 MG TAB PO SCH ×2 (08:36→21:47)
[2017-01-03] MEDS: SERTRALINE HCL 25 MG TABLET PO SCH (08:36)
--- NOTE | 2017-01-03 13:44 | IPNPDOC ---
Text Note Date of Service The patient was seen on 01/03/17. NOTE Subjective: No acute changes overnight. Denies any complaints. Objective: Vitals: (see below) General: No acute distress, laying comfortably in bed. HEENT: Moist mucous membranes. Neck: No JVD or lymphadenopathy Cardiac: RRR, No murmurs Pulm: Crackles at the bases bilaterally. No wheezing, rhonchi Abd: NT/ND + BS. Obese Ext: Trace edema bilateral lower extremities. No cyanosis Neuro: Strength 5/5 bilateral upper extremities and lower extremities. CN 2-12 intact Labs (see below) Images: CT head 11/26/16 There is spray artifact arising from what is most probably a surgical clip due to aneurysmal repair. A subtle area of decreased density is seen in the centrum semiovale on the left near the convexity. There is no evidence of an acute intraparenchymal hemorrhage. There is no shift of the midline structures. The ventricles and sulci appear appropriate for the age of the patient. IMPRESSION: Area of decreased density seen in the left frontoparietal region as described above. Without a prior for comparison, I cannot say whether or not this represents an acute finding or chronic change. The patient has had brain surgery; there are likely priors somewhere and they should be obtained for comparison. There is no evidence of an acute intracranial hemorrhage. There is no mass effect. Echocardiogram 11/26/16 IMPRESSION: 1. Severe left ventricular systolic dysfunction with diffuse hypokinesis and mildly enlarged left ventricle. A restrictive mitral inflow pattern was noted, can be a poor cardiac prognostic marker. 2. Aortic valve sclerosis without stenosis or aortic regurgitation. 3. Mitral annulus calcification with mildly enlarged left atrium and moderate mitral regurgitation. 4. Moderate tricuspid regurgitation with moderate pulmonary hypertension. The right atrium also verito yesterday eared to be mildly enlarged. Assessment/Plan 1. S/p Acute CVA with Left sided hemiparesis, severe dysarthria and severe aphasia 11/26/16. Status post TPA with significant resolution of his symptoms with the exception of mild dysarthria. Carotid ultrasound. MRI/MRA brain pending. Neuro checks. Continue to monitor in the ICU. Appreciate neurology recommendations. Started on ASA/statin. 2. S/p Nonsustained V. tach- asymptomatic. K greater than 4, MG greater than 2. Patient receiving his beta joel this morning as he had significant dysphagia. Will restart Coreg as patient is tolerating by mouth. Echocardiogram with EF of 20%. He does have an AICD for his systolic heart failure. Echocardiogram (see above). 3. History of CAD status post CABG, stable continue home meds 4. History of cardiomyopathy status post AICD- continue home meds 5. Hypertension- continue meds 6. GERD- continue home meds 7. Morbid obesity 8. Hyperlipidemia- continue meds 9. End-stage renal disease on hemodialysis- patient has been noncompliant with results of multiple readmissions. He has been seen by psychiatry and his prior admission. He states that he was unable to go to dialysis because he was unable to drive there however case management had previously arranged for him to be picked up and he had refused in the past. Nephrology on board. Patient getting dialysis while inpatient. Will likely be readmitted in the near future given his noncompliance. 10. Insulin-dependent diabetes mellitus- Levemir d/c for now. SSI. 11. Mod-severe protein-calorie malnutrition DVT prophy: Subcutaneous heparin Poor prognosis. Pending HD placement. Will place under ALC status. VS,Fishbone, I+O VS, Fishbone, I+O Vital Signs Date Time Temp Pulse Resp B/P (MAP) Pulse Ox O2 Delivery O2 Flow Rate FiO2 01/03/17 09:00 Room Air 01/03/17 08:36 71 112/69 01/03/17 06:00 97.9 16 97 I&O- Last 24 Hours up to 6 AM 01/04/17 06:00 Intake Total 0 ml Balance 0 ml THADDEUS SHI MD Jan 03, 2017 13:44
[2017-01-03] MEDS: LOPERAMIDE 2 MG CAP PO PRN (21:47)
[2017-01-04] MEDS: HumaLOG INSULIN (NovoLOG) PER UNIT SC SCH ×3 (05:48→18:58)
[2017-01-04 06:00] VITALS: BP 109/69
[2017-01-04] MEDS: HEPARIN SOD (PORCINE) 5000 UNITS/ML VIAL SQ SCH ×4 (06:00→21:23)
[2017-01-04] MEDS: CARVedilol 6.25 MG TAB PO SCH ×2 (06:32→21:25)
[2017-01-04] MEDS: SPIRONOLACTONE 25 MG TAB PO SCH (06:33)
[2017-01-04] MEDS: ASPIRIN 81 MG ENTERIC TAB PO SCH (06:34)
[2017-01-04] MEDS: SERTRALINE HCL 25 MG TABLET PO SCH (06:34)
[2017-01-04] MEDS: ATORVASTATIN 20 MG TAB PO SCH (06:34)
[2017-01-04] MEDS ORDERED: HEPARIN 1,000 UNITS/ML 10ML VIAL (FOR RADIOLOGY& DIALYSIS ONLY) IV ONE (14:00)
--- NOTE | 2017-01-04 16:53 | IPN ---
DATE: 01/04/2017 SUBJECTIVE: The patient is seen this morning twice, once in the morning and once in the afternoon in the hemodialysis unit, comfortable in no distress with no complaints. Has been noting to have improvement in his oral intake. VITAL SIGNS: Temperature 98.5, pulse 65, respiratory rate 17, blood pressure 109/69, saturating 97% on room air. INTAKE AND OUTPUT: Oral intake yesterday was 1680 mL. PHYSICAL EXAMINATION: The patient is seen on hemodialysis, comfortable, in no acute distress, lying comfortably in bed. HEAD AND NECK: Extraocular muscles are intact. The oral mucosa is moist. The neck is supple. There is no significant jugular venous distention. CARDIAC: S1, S2, 2+ radial pulses. No edema in the extremities. No murmurs. There is a defibrillator in the left chest wall. CHEST: Bilateral air entry, symmetric. Comfortable on room air. ABDOMEN: Soft, obese, nontender. Positive bowel sounds. EXTREMITIES: Without edema and there is a fistula with thrill and bruit in the right upper extremity. NEUROLOGIC: The patient is currently at his baseline mentation. He answers questions appropriately. PSYCHIATRIC: Appropriate mood and affect. LABORATORY DATA: There are no new laboratories today. INPATIENT MEDICATIONS: Reviewed and there is no significant change. PROBLEMS: 1. End stage renal disease. The patient is receiving his maintenance hemodialysis treatment and is tolerating it without issue. Goal ultrafiltration is going to be about 1.5 kg. I am pleased that his oral intake has increased. We will continue to monitor volume status and hemodynamics for ultrafiltration. His blood work was checked earlier in the week and was appropriate for end-stage renal disease. 2. Hypertension. Blood pressure is well-controlled and he continues on carvedilol and spironolactone. 3. Anemia. Hemoglobin has been at goal. 4. Weight loss. The patient has lost significant weight over the course of this admission. Some of it was related to his hypervolemia on admission but he has also lost body weight. Oral intake is encouraged and we have placed him on a regular diet. 5. The patient is pending rehabilitation placement and is on alternative level of care status. We will follow him on dialysis days only.
[2017-01-05 06:00] VITALS: BP 119/78
[2017-01-05] MEDS: HEPARIN SOD (PORCINE) 5000 UNITS/ML VIAL SQ SCH ×3 (06:00→21:46)
[2017-01-05] MEDS: CARVedilol 6.25 MG TAB PO SCH ×2 (09:00→21:46)
[2017-01-05] MEDS: SPIRONOLACTONE 25 MG TAB PO SCH (09:23)
[2017-01-05] MEDS: ATORVASTATIN 20 MG TAB PO SCH (09:23)
[2017-01-05] MEDS: ASPIRIN 81 MG ENTERIC TAB PO SCH (09:23)
[2017-01-05] MEDS: LOPERAMIDE 2 MG CAP PO PRN (09:23)
[2017-01-05] MEDS: SERTRALINE HCL 25 MG TABLET PO SCH (09:23)
[2017-01-05] MEDS: HumaLOG INSULIN (NovoLOG) PER UNIT SC SCH ×5 (09:24→21:24)
[2017-01-06 06:00] VITALS: BP 120/76
[2017-01-06] MEDS: HEPARIN SOD (PORCINE) 5000 UNITS/ML VIAL SQ SCH ×3 (06:00→20:58)
[2017-01-06] MEDS: SERTRALINE HCL 25 MG TABLET PO SCH (06:47)
[2017-01-06] MEDS: ATORVASTATIN 20 MG TAB PO SCH (06:47)
[2017-01-06] MEDS: SPIRONOLACTONE 25 MG TAB PO SCH (06:48)
[2017-01-06] MEDS: ASPIRIN 81 MG ENTERIC TAB PO SCH (06:48)
[2017-01-06] MEDS: CARVedilol 6.25 MG TAB PO SCH ×2 (06:49→20:29)
[2017-01-06 10:39] LABS: MEAN CORPUSCULAR HEMOGLOBIN 27.8 pg (27.0-33.0); MEAN CORPUSCULAR HGB CONC 32.7 g/dl (32.0-36.5); PLATELET COUNT, AUTOMATED 170 10^3/uL (150-450); RED CELL DISTRIBUTION WIDTH 16.1 % (11.5-14.5); WHITE BLOOD COUNT 7.1 10^3/uL (4.0-10.0)
[2017-01-06 11:09] LABS: CALCIUM LEVEL 9.3 MG/DL (8.8-10.2); CREATININE FOR GFR 2.76 MG/DL (0.70-1.30); GLOMERULAR FILTRATION RATE 24.9 (>49); PHOSPHORUS LEVEL 1.6 MG/DL (2.5-4.9); POTASSIUM SERUM 3.6 MEQ/L (3.5-5.1)
[2017-01-06] MEDS ORDERED: HEPARIN 1,000 UNITS/ML 10ML VIAL (FOR RADIOLOGY& DIALYSIS ONLY) IV ONE (11:45)
[2017-01-06] MEDS: DARBEPOETIN 100 MCG/0.5 ML *DIALYSIS* SYRINGE (J0882) IV SCH (13:00)
[2017-01-06] MEDS: HumaLOG INSULIN (NovoLOG) PER UNIT SC SCH ×2 (13:01→17:13)
--- NOTE | 2017-01-06 14:25 | IPN ---
DATE: 01/06/2017 SUBJECTIVE: The patient is seen this morning on hemodialysis, comfortable, in no acute distress. He states his appetite has picked up. He states he is ambulating and wants to go home. He requests toe nail clippers so he can clip his nails. He denies any acute complaints. VITAL SIGNS: Temperature 97.4, pulse 74, respiratory rate 18, blood pressure 120/76, saturating 98% on room air. Oral intake yesterday was 1170 mL. Hemodialysis today removed 1500 mL. There were no bowel movements recorded yesterday. The patient is seen on dialysis comfortable in no acute distress. Extraocular muscles are intact. The oral mucosa is moist. The neck is supple. Cardiac: S1, S2. There is a defibrillator present in the left chest wall. Lungs are clear to auscultation bilaterally. The abdomen is soft, obese, nontender. There is no edema in the lower extremities or in the dependent area. Extremities: There is a right upper extremity fistula with thrill and bruit. 2+ radial pulses are present. Neurologic: No focal deficit at this time. Psychiatric: Appropriate mood and affect. LABS: Drawn on hemodialysis and show hemoglobin 10.2, white count 7.1, platelets 170. Sodium 139, potassium 3.6, bicarbonate 30, phosphorus 1.6. INPATIENT MEDICATIONS: I started the patient on once weekly Aranesp. There are otherwise no changes in his medications and he is not on a phos binder. PLAN: 1. End stage renal disease on hemodialysis. The patient continues with his maintenance Monday, Monday, and Monday treatments and is tolerating without issue. We will continue to monitor his oral intake and adjust his ultrafiltration accordingly. His phosphorus is low which is likely due to the fact that blood was drawn on dialysis. He is not on any phos binder. His blood work is otherwise intermittently checked and appropriate for end stage renal disease. 2. Hypertension. Blood pressure is well controlled on his current regimen of Spironolactone and carvedilol. 3. Anemia. Hemoglobin is at goal, but slowly drifting down. I have restarted Aranesp once weekly. 4. Weight loss. The patient has lost significant weight over the course of this prolonged admission. Some of it is due to the fact that he was hypervolemic on admission, but he has also true body weight. Oral intake is encouraged. He is okay for a regular diet. 5. The patient is pending rehabilitation placement after having an acute stroke on this admission and he is currently alternative level of care status. We will continue to follow him on dialysis days only. [facility]
[2017-01-07] MEDS: HEPARIN SOD (PORCINE) 5000 UNITS/ML VIAL SQ SCH ×3 (05:08→21:13)
[2017-01-07 06:00] VITALS: BP 128/78
[2017-01-07] MEDS: HumaLOG INSULIN (NovoLOG) PER UNIT SC SCH ×3 (07:30→17:04)
[2017-01-07] MEDS: SERTRALINE HCL 25 MG TABLET PO SCH (08:27)
[2017-01-07] MEDS: SPIRONOLACTONE 25 MG TAB PO SCH (08:27)
[2017-01-07] MEDS: CARVedilol 6.25 MG TAB PO SCH ×2 (08:27→21:13)
[2017-01-07] MEDS: ATORVASTATIN 20 MG TAB PO SCH (08:27)
[2017-01-07] MEDS: ASPIRIN 81 MG ENTERIC TAB PO SCH (08:27)
[2017-01-08] MEDS: HEPARIN SOD (PORCINE) 5000 UNITS/ML VIAL SQ SCH ×3 (05:18→22:01)
[2017-01-08 06:00] VITALS: BP 126/84
[2017-01-08] MEDS: ATORVASTATIN 20 MG TAB PO SCH (08:38)
[2017-01-08] MEDS: SERTRALINE HCL 25 MG TABLET PO SCH (08:38)
[2017-01-08] MEDS: HumaLOG INSULIN (NovoLOG) PER UNIT SC SCH ×3 (08:39→17:57)
[2017-01-08] MEDS: ASPIRIN 81 MG ENTERIC TAB PO SCH (08:40)
[2017-01-08 11:18] LABS: BASO # 0.1 10^3/uL (0.0-0.2); BASO % 1.1 % (0.0-1.0); EOS # 0.6 10^3/uL (0.0-0.50); EOS % 7.6 % (0.0-3.0); IMMATURE GRANULOCYTE % 0.6 % (0-0); LYMPH # 0.9 10^3/uL (1.5-4.5); LYMPH % 12.7 % (24.0-44.0); MEAN CORPUSCULAR HEMOGLOBIN 27.3 pg (27.0-33.0); MEAN CORPUSCULAR HGB CONC 31.9 g/dl (32.0-36.5); MEAN CORPUSCULAR VOLUME 85.7 fl (80.0-96.0); MONO # 0.8 10^3/uL (0.0-0.8); NEUTROPHILS # 4.9 10^3/uL (1.8-7.7); PLATELET COUNT, AUTOMATED 179 10^3/uL (150-450); RED CELL DISTRIBUTION WIDTH 16.4 % (11.5-14.5); WHITE BLOOD COUNT 7.3 10^3/uL (4.0-10.0)
[2017-01-08 11:36] LABS: CALCIUM LEVEL 9.1 MG/DL (8.8-10.2); GLOMERULAR FILTRATION RATE 11.7 (>49); POTASSIUM SERUM 4.2 MEQ/L (3.5-5.1)
[2017-01-08 11:59] LABS: CREATININE FOR GFR 5.3 MG/DL (0.70-1.30)
[2017-01-08] MEDS ORDERED: HEPARIN 1,000 UNITS/ML 10ML VIAL (FOR RADIOLOGY& DIALYSIS ONLY) IV ONE (12:00)
[2017-01-08 15:13] VITALS: BP 112/73
[2017-01-08] MEDS: CARVedilol 6.25 MG TAB PO SCH ×3 (15:24→22:44)
[2017-01-08] MEDS: SPIRONOLACTONE 25 MG TAB PO SCH (15:25)
--- NOTE | 2017-01-08 21:07 | IPN ---
DATE: 01/08/2017 SUBJECTIVE: Patient was seen and examined at the bedside today morning during hemodialysis procedure. He was tolerating the hemodialysis procedure well. He denies any active complaints. REVIEW OF SYSTEMS: Patient denies any fever, chills, rigors, headache, nausea, vomiting, chest pain, shortness of breath, pain in abdomen, constipation. He reports that his weakness is getting better and he is getting physical therapy and he is able to walk around in the hallways now. Rest of review of systems is negative. OBJECTIVE: VITAL SIGNS: Temperature 97.7 degrees Fahrenheit, blood pressure 112/73, pulse 67, respiratory rate 18, saturating 98% on room air. Intake and output: Urine output is not recorded well. Weight in the bed scale is not available at this time. PHYSICAL EXAMINATION: GENERAL: Patient is awake, alert, oriented times three, laying in bed, no apparent distress. HEAD and NECK EXAM: Extraocular muscles intact. Pupils equally round and reactive to light. Mucous membranes are moist. Neck is supple, there is no jugular venous distention (JVD). CARDIOVASCULAR: S1, S2, irregular rate. No murmur, rub, or gallop. Patient has a left anterior chest wall automatic implantable cardioverter defibrillator (AICD). RESPIRATORY: Chest is clear to auscultation bilaterally. Bilateral equal air entry. No rales or rhonchi. ABDOMEN: Soft. Positive bowel sounds. Nontender. No ascites. No organomegaly. EXTREMITIES: No clubbing or cyanosis. Pulses are 2+. Patient has a right forearm arteriovenous (AV) fistula which is being used for dialysis. No issues with the fistula. 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 Power is 5/5 in all extremities. PSYCHIATRIC: Normal mood and affect. LABORATORY REVIEW: CBC showed WBC 7.3, hemoglobin 10.5, platelets 179. BMP showed sodium 136, potassium 4.2, chloride 100, bicarbonate 27, BUN 30, creatinine 5.3, calcium 9.1, phosphorous 3. CURRENT INPATIENT MEDICATIONS: Patient's medications were all reviewed by me. There is no change in the medications today as compared with yesterday. ASSESSMENT: 61-year-old male with past medical history of end-stage renal disease on hemodialysis admitted at this time with weakness and inability to go for dialysis which resulted in fluid overload and generalized edema. PLAN: 1. End-stage renal disease on hemodialysis. Patient is being dialyzed according to his Monday, Monday, Monday schedule. Because of the holidays, Monday, Monday, Monday patients are being dialyzed today. He is tolerating the hemodialysis procedure well. 2. Hypertension. Blood pressure is acceptable at this time. Continue current dose of Coreg 6.25 mg by mouth twice a day. 3. Anemia secondary to end-stage renal disease. Patient's hemoglobin is 10.5, which is optimal. Continue current dose of Aranesp 100 mcg IV with hemodialysis. 4. Disposition. Patient is currently alternate level of care. He is okay to be discharged from nephrology standpoint whenever a rehabilitation bed is available.
[2017-01-09] MEDS: HEPARIN SOD (PORCINE) 5000 UNITS/ML VIAL SQ SCH ×3 (05:16→21:30)
[2017-01-09 06:00] VITALS: BP 100/60
[2017-01-09] MEDS: HumaLOG INSULIN (NovoLOG) PER UNIT SC SCH ×3 (07:30→17:01)
[2017-01-09 09:57] VITALS: BP 112/70
[2017-01-09] MEDS: ASPIRIN 81 MG ENTERIC TAB PO SCH (10:02)
[2017-01-09] MEDS: SPIRONOLACTONE 25 MG TAB PO SCH (10:02)
[2017-01-09] MEDS: CARVedilol 6.25 MG TAB PO SCH ×2 (10:02→21:29)
[2017-01-09] MEDS: SERTRALINE HCL 25 MG TABLET PO SCH (10:02)
[2017-01-09] MEDS: LOPERAMIDE 2 MG CAP PO PRN (10:03)
[2017-01-09] MEDS: ATORVASTATIN 20 MG TAB PO SCH (10:03)
[2017-01-10 06:00] VITALS: BP 103/70
[2017-01-10] MEDS: HEPARIN SOD (PORCINE) 5000 UNITS/ML VIAL SQ SCH ×3 (06:00→22:00)
[2017-01-10] MEDS: HumaLOG INSULIN (NovoLOG) PER UNIT SC SCH ×3 (06:03→17:30)
[2017-01-10] MEDS: ATORVASTATIN 20 MG TAB PO SCH (06:09)
[2017-01-10] MEDS: SERTRALINE HCL 25 MG TABLET PO SCH (06:09)
[2017-01-10] MEDS: ASPIRIN 81 MG ENTERIC TAB PO SCH (06:09)
[2017-01-10] MEDS: CARVedilol 6.25 MG TAB PO SCH ×2 (09:00→21:30)
[2017-01-10] MEDS ORDERED: HEPARIN 1,000 UNITS/ML 10ML VIAL (FOR RADIOLOGY& DIALYSIS ONLY) IV ONE (12:45)
--- NOTE | 2017-01-10 13:46 | IPN ---
DATE OF SERVICE: 01/10/2017 SUBJECTIVE: Patient was seen and examined at the bedside today morning during hemodialysis procedure. Patient was tolerating the hemodialysis procedure well. He denies any active complaints at this time. OBJECTIVE: VITAL SIGNS: Temperature is 98.9 degrees Fahrenheit, blood pressure is 103/70, pulse is 68, respiratory rate of 15, saturating 99% on room air. PHYSICAL EXAMINATION: GENERAL: Patient is awake, alert, oriented times three, laying in bed, getting hemodialysis done, in no apparent distress. HEAD and NECK EXAM: Extraocular muscles intact. Pupils equally round and reactive to light. Mucous membranes are moist. Neck is supple. There is no jugular venous distention (JVD). CARDIOVASCULAR: S1, S2, irregular rate. No murmur, rub, or gallop. Patient has a left anterior chest wall automatic implantable cardioverter defibrillator (AICD). RESPIRATORY: Chest is clear to auscultation bilaterally. Bilateral equal air entry. No rales or rhonchi. ABDOMEN: Soft. Positive bowel sounds. Nontender. No ascites. No organomegaly. EXTREMITIES: No clubbing or cyanosis. Pulses are 2+. Patient has a right forearm arteriovenous (AV) fistula, which is being used for dialysis at this time. 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 Power is 5/5 in all extremities. LABORATORY REVIEW: CBC done on 01/08/2017 showed a hemoglobin of 10.5 and his potassium on 01/08/2017 was 4.2. Calcium and phosphorus was within the acceptable range. CURRENT INPATIENT MEDICATIONS: Patient's medications were all reviewed by me. Patient has been started on Coreg 6.25 mg by mouth twice a day. I stopped his spironolactone. Patient does not make much urine. There is no other change in the medications today as compared with yesterday. ASSESSMENT: 61-year-old male with past medical history of end-stage renal disease on hemodialysis admitted this time because of weakness and inability to go for dialysis, fluid overload and generalized edema. PLAN: 1. End-stage renal disease on hemodialysis. Patient is being dialyzed according to his schedule. Because of the holiday, Monday, Monday, Monday patients are being dialyzed today. He is tolerating the hemodialysis procedure well. Ultrafiltration goal will be around 2 liters as tolerated by his blood pressure. 2. Hypertension. Blood pressure is acceptable at this time. Continue current dose of Coreg 6.25 mg by mouth twice a day. 3. Anemia secondary to end-stage renal disease. Hemoglobin is optimal at this time. Continue current dose of Aranesp 100 mcg IV with hemodialysis. DISPOSITION: Patient is alternate level of care. He is awaiting placement at this time. Nephrology service only seeing the patient on dialysis days.
[2017-01-10 14:00] VITALS: BP 131/62
[2017-01-10 19:11] VITALS: BP 130/61
[2017-01-11 06:00] VITALS: BP 108/72
[2017-01-11] MEDS: HEPARIN SOD (PORCINE) 5000 UNITS/ML VIAL SQ SCH ×3 (06:00→20:45)
[2017-01-11] MEDS: HumaLOG INSULIN (NovoLOG) PER UNIT SC SCH ×3 (07:30→16:58)
[2017-01-11 10:22] VITALS: BP 116/75
[2017-01-11] MEDS: ATORVASTATIN 20 MG TAB PO SCH (10:23)
[2017-01-11] MEDS: ASPIRIN 81 MG ENTERIC TAB PO SCH (10:23)
[2017-01-11] MEDS: CARVedilol 6.25 MG TAB PO SCH ×2 (10:24→20:42)
[2017-01-11] MEDS: SERTRALINE HCL 25 MG TABLET PO SCH (10:24)
[2017-01-11 22:00] VITALS: BP 109/76
[2017-01-12 06:00] VITALS: BP 119/77
[2017-01-12] MEDS: HEPARIN SOD (PORCINE) 5000 UNITS/ML VIAL SQ SCH ×3 (06:23→20:25)
[2017-01-12] MEDS: HumaLOG INSULIN (NovoLOG) PER UNIT SC SCH ×3 (07:18→17:16)
[2017-01-12] MEDS: SERTRALINE HCL 25 MG TABLET PO SCH (08:34)
[2017-01-12] MEDS: ASPIRIN 81 MG ENTERIC TAB PO SCH (08:34)
[2017-01-12] MEDS: ATORVASTATIN 20 MG TAB PO SCH (08:35)
[2017-01-12] MEDS: CARVedilol 6.25 MG TAB PO SCH ×2 (08:35→20:25)
[2017-01-13 06:00] VITALS: BP 121/80
[2017-01-13] MEDS: HEPARIN SOD (PORCINE) 5000 UNITS/ML VIAL SQ SCH ×3 (06:00→21:51)
[2017-01-13] MEDS: HumaLOG INSULIN (NovoLOG) PER UNIT SC SCH ×3 (06:25→17:30)
[2017-01-13] MEDS: CARVedilol 6.25 MG TAB PO SCH ×2 (06:25→21:50)
[2017-01-13] MEDS: ASPIRIN 81 MG ENTERIC TAB PO SCH (06:26)
[2017-01-13] MEDS: ATORVASTATIN 20 MG TAB PO SCH (06:26)
[2017-01-13] MEDS: SERTRALINE HCL 25 MG TABLET PO SCH (06:26)
[2017-01-13] MEDS: DARBEPOETIN 100 MCG/0.5 ML *DIALYSIS* SYRINGE (J0882) IV SCH (09:00)
[2017-01-13] MEDS ORDERED: HEPARIN 1,000 UNITS/ML 10ML VIAL (FOR RADIOLOGY& DIALYSIS ONLY) IV ONE (11:30)
[2017-01-13] MEDS ORDERED: ASPI81TAEC PO (11:47)
[2017-01-13] MEDS ORDERED: CARV6.25 PO (11:47)
[2017-01-13] MEDS ORDERED: ATOR1TAB21 PO (11:54)
[2017-01-13 13:23] LABS: MEAN CORPUSCULAR HEMOGLOBIN 27.9 pg (27.0-33.0); MEAN CORPUSCULAR VOLUME 84.7 fl (80.0-96.0); PLATELET COUNT, AUTOMATED 177 10^3/uL (150-450); WHITE BLOOD COUNT 6.3 10^3/uL (4.0-10.0)
[2017-01-13 14:00] LABS: ALBUMIN 3.1 GM/DL (3.2-5.2); CALCIUM LEVEL 8.9 MG/DL (8.8-10.2); CREATININE FOR GFR 6.31 MG/DL (0.70-1.30); GLOMERULAR FILTRATION RATE 9.6 (>49); PHOSPHORUS LEVEL 4.1 MG/DL (2.5-4.9); POTASSIUM SERUM 4.6 MEQ/L (3.5-5.1)
--- NOTE | 2017-01-14 05:09 | IPN ---
DATE OF SERVICE: 01/13/2017 Mr. Weber is seen this morning during hemodialysis. He is feeling well and reports that he has been eating very well. He also has been ambulating with the help of walker. He feels that he is going home tomorrow. He denies any dyspnea, chest pain, nausea or vomiting. PHYSICAL EXAMINATION: Temperature 98.2 degrees Fahrenheit, heart rate 72 per minute and respiratory rate 18 per minute. Blood pressure 121/80 mmHg and oxygen saturation 97% on room air. His head is atraumatic. Ears, nose and throat are unremarkable. Pupils equal and reactive to light and sclera is anicteric. Heart sounds are regular and lungs clear to auscultation. Abdomen soft and nontender and without a palpable organomegaly. Bowel sounds are normal. Extremities have no cyanosis or clubbing. Neurologically, he is awake, alert and oriented times three. He has no focal neurological deficit at present. Skin has no rash or ulcers. Today's labs drawn during dialysis show WBC count 6.3, hemoglobin 10.2 and hematocrit 3.9. Sodium 137 and potassium 4.6. BUN is 44 and creatinine 6.31. PROBLEMS: 1. End-stage renal disease. The patient is being dialyzed today and he is tolerating his dialysis treatment very well. He is currently on a regular schedule of Monday, Monday and Monday. If his discharge plans materialize, then he can go to next hemodialysis at [facility] as an outpatient. 2. Anemia. His anemia is very well controlled at present and hemoglobin is still within the range. No intervention is indicated. 3. Hypertension. Blood pressure seems well controlled on current antihypertensive medications which will be continued. 4. Diabetes. His diabetes has been well controlled here in the hospital. It remains to be seen how he does at home. 5. Generalized weakness following stroke. The patient seems to have improved significantly. He is still not quite at his baseline. The patient tells me that he is going home tomorrow and I hope that he will followup with his primary physician as an outpatient. He does have history of noncompliance and poor followup in the past. From a renal standpoint, he is stable for discharge.
[2017-01-14] MEDS: HEPARIN SOD (PORCINE) 5000 UNITS/ML VIAL SQ SCH (05:59)
[2017-01-14 06:00] VITALS: BP 135/85
[2017-01-14] MEDS: LOPERAMIDE 2 MG CAP PO PRN (06:59)
--- NOTE | 2017-01-14 08:24 | IPNPDOC ---
Text Note Date of Service The patient was seen on 01/14/17. NOTE Discharge Addendum: Patient to be discharged home with services today. Please refer to previous discharge instructions and medication reconciliation. No changes to discharge instructions. Please refer to previous discharge summary for full details. VS,El[place]bone, I+O VS, Fishbone, I+O Laboratory Tests 01/13/17 12:50 Red Blood Count 3.65 L, Mean Corpuscular Volume 84.7, Mean Corpuscular Hemoglobin 27.9, Mean Corpuscular Hemoglobin Concent 33.0, Red Cell Distribution Width 17.0 H, Anion Gap 12 Vital Signs Date Time Temp Pulse Resp B/P (MAP) Pulse Ox O2 Delivery O2 Flow Rate FiO2 01/14/17 06:00 97.7 69 17 135/85 (102) 97 Room Air NORRIS TRIPLETT MD Jan 14, 2017 08:24
[2017-01-14] MEDS: SERTRALINE HCL 25 MG TABLET PO SCH (09:09)
[2017-01-14] MEDS: HumaLOG INSULIN (NovoLOG) PER UNIT SC SCH (09:09)
[2017-01-14] MEDS: ASPIRIN 81 MG ENTERIC TAB PO SCH (09:09)
[2017-01-14] MEDS: ATORVASTATIN 20 MG TAB PO SCH (09:09)
[2017-01-14 09:10] VITALS: BP 132/86
[2017-01-14] MEDS: CARVedilol 6.25 MG TAB PO SCH (09:10)
--- NOTE | 2017-01-14 14:59 | DSES ---
DATE OF ADMISSION: 11/24/2016 DATE OF DISCHARGE: SPECIALISTS INVOLVED IN HIS CARE: 1. Dr. Stark. 2. Dr. Neal. PROCEDURES PERFORMED DURING STAY: None. DISCHARGE DIAGNOSES: 1. End stage renal disease on hemodialysis. 2. Hypertension. 3. Anemia of end stage renal disease. 4. Status post coronary artery bypass graft (CABG). 5. Cardiomyopathy, status post automatic implantable cardioverter-defibrillator (AICD). 6. Gastroesophageal reflux disease (GERD). 7. Morbid obesity. 8. Hyperlipidemia. 9. Complicated social situation. 10. Left ventricular ejection fraction 20%. 11. Severe systolic dysfunction. 12. Restrictive mitral inflow. 13. Moderate pulmonary hypertension.' 14. History of CVA with left sided hemiparesis. 15. Status post tissue plasminogen activator (tPA). 16. History of nonsustained ventricular tachycardia. SUMMARY OF HOSPITALIZATION: This is a 61-year-old who presented with decompensated fluid status, status post noncompliance with hemodialysis. He was admitted to the hospitalist service and followed by nephrology. Unfortunately, he went on to have left sided hemiparesis, dysarthria and had severe aphasia. On 11/26/2016, he received tPA with resolution of most of his symptoms. He was seen in consultation by neurology, Dr. Pacheco. He improved slowly during the remainder of his stay. He worked intermittently with physical therapy. Occasionally refused medications and therapy, but at this point has been compliant with therapy and is highly motivated to go home and attempt a home plan again. Previous home plans with a lot of support have failed. Hopefully, at this point, it will succeed. Today, he is awake and appropriately and pleasantly interactive, no complaints and receiving hemodialysis. Temperature 98.2, pulse 73, respiratory rate 18, blood pressure 121/80, 97% on room air. White cell count 7.3, hemoglobin 10.5, platelets 179. Creatinine 5.3. DISCHARGE INSTRUCTIONS: Include the following: Follow up with Dr. Stark at normal dialysis schedule. Continue renal diet. Activity as tolerated. Aspirin 81 mg by mouth daily, Coreg 6.25 mg by mouth twice daily, continue vitamin D, continue sliding scale insulin at home, continue Sertraline 25 mg by mouth daily which he has been taking here, discontinue previous dose of Coreg which is lower, discontinue Lantus as he has not been requiring much insulin and discontinue Spironolactone, start atorvastatin 20 mg by mouth daily. He did receive Aranesp while in hospital and that will be decided on at dialysis.
== END 2017-01-14 09:35 | disposition home health service (06) | DRG 291 ==
LOC: M ED 16:30 → M ED INP 11-24 00:27 → M ICU 11-24 03:40 → M MS5PR 11-25 17:19 → M ICU 11-26 08:42 → M PCU 11-29 06:15 → M MSPAV 11-29 20:11
PROVIDERS: ADMIT Internal Medicine; ATTEND Internal Medicine
PROC: 5A1D70Z Performance of Urinary Filtration, Intermittent, Less than 6 Hours Per Day (ICD-10-PCS; principal; 2016-11-24)
PROC: 3E03317 Introduction of Other Thrombolytic into Peripheral Vein, Percutaneous Approach (ICD-10-PCS; 2016-12-06)
DX: I13.2 Hypertensive heart and chronic kidney disease with heart failure and with stage 5 chronic kidney disease, or end stage renal disease (principal); N18.6 End stage renal disease; I63.9 Cerebral infarction, unspecified; E43 Unspecified severe protein-calorie malnutrition; I50.22 Chronic systolic (congestive) heart failure; G81.94 Hemiplegia, unspecified affecting left nondominant side; R47.01 Aphasia; I47.1 Supraventricular tachycardia; I25.10 Atherosclerotic heart disease of native coronary artery without angina pectoris; Z99.2 Dependence on renal dialysis; E11.22 Type 2 diabetes mellitus with diabetic chronic kidney disease; Z66 Do not resuscitate; E66.01 Morbid (severe) obesity due to excess calories; E78.5 Hyperlipidemia, unspecified; K21.9 Gastro-esophageal reflux disease without esophagitis; D63.1 Anemia in chronic kidney disease; R47.1 Dysarthria and anarthria; E11.649 Type 2 diabetes mellitus with hypoglycemia without coma; Z91.14 Patient's other noncompliance with medication regimen; Z91.15 Patient's noncompliance with renal dialysis; Z68.36 Body mass index [BMI] 36.0-36.9, adult; Z95.810 Presence of automatic (implantable) cardiac defibrillator; Z95.1 Presence of aortocoronary bypass graft; Z79.4 Long term (current) use of insulin; Z79.899 Other long term (current) drug therapy; F32.9 Major depressive disorder, single episode, unspecified; I27.20 Pulmonary hypertension, unspecified

== ENCOUNTER 2017-02-17 12:45 | Inpatient (IN) | payer MEDICARE ==
[2017-02-17] MEDS: ATORVASTATIN 20 MG TAB PO (09:00)
[2017-02-17] MEDS: SERTRALINE HCL 25 MG TABLET PO (09:00)
[2017-02-17] MEDS ORDERED: HEPARIN SOD (PORCINE) 5000 UNITS/ML VIAL SC (14:00)
[2017-02-17] MEDS ORDERED: DEXTROSE 50% 50 ML SYRINGE IV (15:45)
[2017-02-17] MEDS ORDERED: GLUCOSE 4 GM CHEW TABLET PO (15:45)
[2017-02-17] MEDS ORDERED: GLUCAGON FOR INJ 1 MG VIAL (J1610) SC (15:45)
[2017-02-17 16:10] LABS: BASO # 0.1 10^3/uL (0.0-0.2); BASO % 0.7 % (0.0-1.0); EOS # 0.3 10^3/uL (0.0-0.50); EOS % 3.5 % (0.0-3.0); HEMATOCRIT 31.5 % (42.0-52.0); HEMOGLOBIN 10.1 g/dl (14.0-18.0); IMMATURE GRANULOCYTE % 0.4 % (0-0); LYMPH # 0.8 10^3/uL (1.5-4.5); LYMPH % 11.3 % (24.0-44.0); MEAN CORPUSCULAR HEMOGLOBIN 27.9 pg (27.0-33.0); MEAN CORPUSCULAR HGB CONC 32.1 g/dl (32.0-36.5); MONO % 13.1 % (0.0-5.0); NEUTROPHILS # 5.3 10^3/uL (1.8-7.7); PLATELET COUNT, AUTOMATED 177 10^3/uL (150-450); RED BLOOD COUNT 3.62 10^6/uL (4.30-6.10); RED CELL DISTRIBUTION WIDTH 17.4 % (11.5-14.5); WHITE BLOOD COUNT 7.4 10^3/uL (4.0-10.0)
[2017-02-17 16:37] LABS: ALBUMIN/GLOBULIN RATIO 0.79 (1.00-1.93); ALKALINE PHOSPHATASE 148 U/L (45-117); ALT/SGPT 14 U/L (12-78); ANION GAP 14 MEQ/L (8-16); AST/SGOT 16 U/L (7-37); BILIRUBIN,TOTAL 0.9 MG/DL (0.2-1.0); BLOOD UREA NITROGEN 76 MG/DL (7-18); C REACTIVE PROTEIN QUANTITATIV 6.73 MG/DL (0.00-0.30); CALCIUM LEVEL 8.6 MG/DL (8.8-10.2); CARBON DIOXIDE LEVEL 19 MEQ/L (21-32); CHLORIDE LEVEL 105 MEQ/L (98-107); CREATININE FOR GFR 5.64 MG/DL (0.70-1.30); ERYTHROCYTE SEDIMENTATION RATE 34 mm/hr (0-20); GLOMERULAR FILTRATION RATE 10.9 (>49); GLUCOSE, FASTING 174 MG/DL (80-110); POTASSIUM SERUM 4.2 MEQ/L (3.5-5.1); SODIUM LEVEL 138 MEQ/L (136-145); TOTAL PROTEIN 6.8 GM/DL (6.4-8.2)
[2017-02-17 19:03] LABS: BEDSIDE GLUCOSE 157 MG/DL (80-115)
[2017-02-17] MEDS: HumaLOG INSULIN (NovoLOG) PER UNIT SC ×2 (19:07→21:22)
[2017-02-17] MEDS: PIPERACILLIN/TAZOBACTAM SOD 2.25 GM in APPROPRIATE DILUENT 1 EA IV (19:08)
[2017-02-17] MEDS: PERCOCET 5MG/325MG TAB PO (19:09)
[2017-02-17] MEDS: HEPARIN SOD (PORCINE) 5000 UNITS/ML VIAL SC ×2 (21:22→21:26)
[2017-02-17] MEDS: CARVedilol 6.25 MG TAB PO (21:23)
[2017-02-17 21:26] LABS: BEDSIDE GLUCOSE 262 MG/DL (80-115)
[2017-02-18] MEDS: HEPARIN SOD (PORCINE) 5000 UNITS/ML VIAL SC ×3 (05:48→20:35)
[2017-02-18] MEDS: PIPERACILLIN/TAZOBACTAM SOD 2.25 GM in APPROPRIATE DILUENT 1 EA IV ×2 (05:48→18:27)
[2017-02-18 06:36] LABS: HEMATOCRIT 30.8 % (42.0-52.0); HEMOGLOBIN 9.9 g/dl (14.0-18.0); MEAN CORPUSCULAR HGB CONC 32.1 g/dl (32.0-36.5); PLATELET COUNT, AUTOMATED 133 10^3/uL (150-450); RED BLOOD COUNT 3.54 10^6/uL (4.30-6.10); RED CELL DISTRIBUTION WIDTH 17.7 % (11.5-14.5); WHITE BLOOD COUNT 5.8 10^3/uL (4.0-10.0)
[2017-02-18 07:07] LABS: ANION GAP 13 MEQ/L (8-16); BLOOD UREA NITROGEN 41 MG/DL (7-18); CALCIUM LEVEL 8.5 MG/DL (8.8-10.2); CARBON DIOXIDE LEVEL 22 MEQ/L (21-32); CHLORIDE LEVEL 105 MEQ/L (98-107); CREATININE FOR GFR 4.07 MG/DL (0.70-1.30); GLOMERULAR FILTRATION RATE 15.9 (>49); GLUCOSE, FASTING 109 MG/DL (80-110); POTASSIUM SERUM 4.4 MEQ/L (3.5-5.1); SODIUM LEVEL 140 MEQ/L (136-145)
[2017-02-18] MEDS ORDERED: ONDANSETRON 4MG/2ML VIAL (J2405) IV (07:30)
[2017-02-18] MEDS: HumaLOG INSULIN (NovoLOG) PER UNIT SC ×4 (07:30→20:35)
[2017-02-18] MEDS: CARVedilol 6.25 MG TAB PO (08:47)
[2017-02-18] MEDS: ATORVASTATIN 20 MG TAB PO (08:47)
[2017-02-18] MEDS: SERTRALINE HCL 25 MG TABLET PO (08:47)
[2017-02-18 12:16] LABS: BEDSIDE GLUCOSE 97 MG/DL (80-115)
[2017-02-18] MEDS ORDERED: DARBEPOETIN 100 MCG/0.5 ML *DIALYSIS* SYRINGE (J0882) IV (16:45)
[2017-02-18 16:49] LABS: BEDSIDE GLUCOSE 174 MG/DL (80-115)
[2017-02-18] MEDS: CARVedilol 3.125 MG TAB PO (18:00)
[2017-02-18] MEDS: LACTOBACILLUS ACIDOPHILUS CAP (BACID) PO (18:26)
[2017-02-18] MEDS: LOPERAMIDE 2 MG CAP PO (18:26)
[2017-02-18] MEDS: PERCOCET 5MG/325MG TAB PO (18:30)
[2017-02-18 20:33] LABS: BEDSIDE GLUCOSE 178 MG/DL (80-115)
[2017-02-19] MEDS: HEPARIN SOD (PORCINE) 5000 UNITS/ML VIAL SC ×3 (05:56→21:02)
[2017-02-19] MEDS: PIPERACILLIN/TAZOBACTAM SOD 2.25 GM in APPROPRIATE DILUENT 1 EA IV (05:56)
[2017-02-19] MEDS: CARVedilol 3.125 MG TAB PO ×2 (05:57→17:37)
[2017-02-19 06:48] LABS: HEMOGLOBIN 10.2 g/dl (14.0-18.0); MEAN CORPUSCULAR HEMOGLOBIN 27.2 pg (27.0-33.0); MEAN CORPUSCULAR HGB CONC 30.9 g/dl (32.0-36.5); PLATELET COUNT, AUTOMATED 168 10^3/uL (150-450); RED BLOOD COUNT 3.75 10^6/uL (4.30-6.10); RED CELL DISTRIBUTION WIDTH 17.8 % (11.5-14.5); WHITE BLOOD COUNT 6.5 10^3/uL (4.0-10.0)
[2017-02-19 07:21] LABS: ANION GAP 11 MEQ/L (8-16); BLOOD UREA NITROGEN 48 MG/DL (7-18); CALCIUM LEVEL 8.3 MG/DL (8.8-10.2); CARBON DIOXIDE LEVEL 26 MEQ/L (21-32); CHLORIDE LEVEL 102 MEQ/L (98-107); CREATININE FOR GFR 4.92 MG/DL (0.70-1.30); GLOMERULAR FILTRATION RATE 12.8 (>49); GLUCOSE, FASTING 108 MG/DL (80-110); POTASSIUM SERUM 4.9 MEQ/L (3.5-5.1); SODIUM LEVEL 139 MEQ/L (136-145)
[2017-02-19] MEDS: LACTOBACILLUS ACIDOPHILUS CAP (BACID) PO (08:07)
[2017-02-19] MEDS: SERTRALINE HCL 25 MG TABLET PO (08:07)
[2017-02-19] MEDS: ATORVASTATIN 20 MG TAB PO (08:07)
[2017-02-19] MEDS: HumaLOG INSULIN (NovoLOG) PER UNIT SC ×4 (08:18→20:31)
[2017-02-19] MEDS: HEPARIN 1,000 UNITS/ML 10ML VIAL (FOR RADIOLOGY& DIALYSIS ONLY) IV (10:45)
[2017-02-19 11:51] LABS: BEDSIDE GLUCOSE 84 MG/DL (80-115)
[2017-02-19] MEDS: CHECK TO SEE IF PATIENT IS RECEIVING DIALYSIS TODAY AND REFER TO THE VANCOMYCIN ORDER XX (16:06)
[2017-02-19] MEDS: VANCOMYCIN HCL 1,000 MG, VIAL MATE ADAPTER 1 EACH in D5W 250 ML IV (16:07)
[2017-02-19 17:21] LABS: BEDSIDE GLUCOSE 200 MG/DL (80-115)
[2017-02-19 20:04] LABS: BEDSIDE GLUCOSE 135 MG/DL (80-115)
[2017-02-20] MEDS: CARVedilol 3.125 MG TAB PO ×2 (06:10→17:16)
[2017-02-20] MEDS: HEPARIN SOD (PORCINE) 5000 UNITS/ML VIAL SC ×3 (06:10→21:15)
[2017-02-20 07:24] LABS: HEMATOCRIT 33.1 % (42.0-52.0); HEMOGLOBIN 10.3 g/dl (14.0-18.0); MEAN CORPUSCULAR HEMOGLOBIN 27.5 pg (27.0-33.0); MEAN CORPUSCULAR HGB CONC 31.1 g/dl (32.0-36.5); MEAN CORPUSCULAR VOLUME 88.5 fl (80.0-96.0); PLATELET COUNT, AUTOMATED 166 10^3/uL (150-450); RED BLOOD COUNT 3.74 10^6/uL (4.30-6.10); RED CELL DISTRIBUTION WIDTH 17.7 % (11.5-14.5); WHITE BLOOD COUNT 6.1 10^3/uL (4.0-10.0)
[2017-02-20 07:43] LABS: ANION GAP 9 MEQ/L (8-16); BLOOD UREA NITROGEN 34 MG/DL (7-18); CALCIUM LEVEL 8.7 MG/DL (8.8-10.2); CARBON DIOXIDE LEVEL 28 MEQ/L (21-32); CHLORIDE LEVEL 102 MEQ/L (98-107); CREATININE FOR GFR 4.31 MG/DL (0.70-1.30); GLOMERULAR FILTRATION RATE 14.9 (>49); GLUCOSE, FASTING 100 MG/DL (80-110); SODIUM LEVEL 139 MEQ/L (136-145)
[2017-02-20] MEDS: HumaLOG INSULIN (NovoLOG) PER UNIT SC ×4 (07:56→21:05)
[2017-02-20] MEDS: SERTRALINE HCL 25 MG TABLET PO (09:00)
[2017-02-20] MEDS: ATORVASTATIN 20 MG TAB PO (09:00)
[2017-02-20] MEDS: LACTOBACILLUS ACIDOPHILUS CAP (BACID) PO (09:00)
[2017-02-20 11:49] LABS: BEDSIDE GLUCOSE 160 MG/DL (80-115)
[2017-02-20] MEDS: CHECK TO SEE IF PATIENT IS RECEIVING DIALYSIS TODAY AND REFER TO THE VANCOMYCIN ORDER XX (16:00)
[2017-02-20 16:43] LABS: BEDSIDE GLUCOSE 142 MG/DL (80-115)
[2017-02-20 21:11] LABS: BEDSIDE GLUCOSE 107 MG/DL (80-115)
[2017-02-21] MEDS: SERTRALINE HCL 25 MG TABLET PO (06:20)
[2017-02-21] MEDS: CARVedilol 3.125 MG TAB PO ×2 (06:20→17:22)
[2017-02-21] MEDS: HEPARIN SOD (PORCINE) 5000 UNITS/ML VIAL SC ×3 (06:20→21:12)
[2017-02-21] MEDS: LACTOBACILLUS ACIDOPHILUS CAP (BACID) PO (06:21)
[2017-02-21] MEDS: ATORVASTATIN 20 MG TAB PO (06:21)
[2017-02-21 07:19] LABS: HEMATOCRIT 33.6 % (42.0-52.0); HEMOGLOBIN 10.5 g/dl (14.0-18.0); MEAN CORPUSCULAR HEMOGLOBIN 27.8 pg (27.0-33.0); MEAN CORPUSCULAR HGB CONC 31.3 g/dl (32.0-36.5); MEAN CORPUSCULAR VOLUME 88.9 fl (80.0-96.0); PLATELET COUNT, AUTOMATED 175 10^3/uL (150-450); RED BLOOD COUNT 3.78 10^6/uL (4.30-6.10); RED CELL DISTRIBUTION WIDTH 18.1 % (11.5-14.5); WHITE BLOOD COUNT 6.4 10^3/uL (4.0-10.0)
[2017-02-21] MEDS: HumaLOG INSULIN (NovoLOG) PER UNIT SC ×4 (07:30→20:57)
[2017-02-21 07:35] LABS: ANION GAP 12 MEQ/L (8-16); BLOOD UREA NITROGEN 38 MG/DL (7-18); CALCIUM LEVEL 8.5 MG/DL (8.8-10.2); CARBON DIOXIDE LEVEL 26 MEQ/L (21-32); CHLORIDE LEVEL 102 MEQ/L (98-107); CREATININE FOR GFR 5.13 MG/DL (0.70-1.30); GLOMERULAR FILTRATION RATE 12.2 (>49); GLUCOSE, FASTING 100 MG/DL (80-110); POTASSIUM SERUM 4.5 MEQ/L (3.5-5.1); SODIUM LEVEL 140 MEQ/L (136-145)
[2017-02-21] MEDS ORDERED: VANCOMYCIN HCL 500 MG in D5W MINI-BAG PLUS 100 ML IV (08:00)
[2017-02-21 12:03] LABS: BEDSIDE GLUCOSE 98 MG/DL (80-115)
[2017-02-21] MEDS: CHECK TO SEE IF PATIENT IS RECEIVING DIALYSIS TODAY AND REFER TO THE VANCOMYCIN ORDER XX (16:00)
[2017-02-21 17:17] LABS: BEDSIDE GLUCOSE 180 MG/DL (80-115)
[2017-02-21 21:00] LABS: BEDSIDE GLUCOSE 129 MG/DL (80-115)
[2017-02-22] MEDS: HEPARIN SOD (PORCINE) 5000 UNITS/ML VIAL SC ×4 (06:18→21:07)
[2017-02-22] MEDS: SERTRALINE HCL 25 MG TABLET PO (06:18)
[2017-02-22] MEDS: LACTOBACILLUS ACIDOPHILUS CAP (BACID) PO (06:18)
[2017-02-22] MEDS: ATORVASTATIN 20 MG TAB PO (06:19)
[2017-02-22] MEDS: CARVedilol 3.125 MG TAB PO ×2 (06:19→18:05)
[2017-02-22 07:24] LABS: HEMATOCRIT 34.6 % (42.0-52.0); HEMOGLOBIN 10.7 g/dl (14.0-18.0); MEAN CORPUSCULAR HEMOGLOBIN 27.6 pg (27.0-33.0); MEAN CORPUSCULAR HGB CONC 30.9 g/dl (32.0-36.5); MEAN CORPUSCULAR VOLUME 89.2 fl (80.0-96.0); PLATELET COUNT, AUTOMATED 169 10^3/uL (150-450); RED BLOOD COUNT 3.88 10^6/uL (4.30-6.10); WHITE BLOOD COUNT 7.2 10^3/uL (4.0-10.0)
[2017-02-22 07:46] LABS: ANION GAP 11 MEQ/L (8-16); BLOOD UREA NITROGEN 45 MG/DL (7-18); CALCIUM LEVEL 8.7 MG/DL (8.8-10.2); CARBON DIOXIDE LEVEL 26 MEQ/L (21-32); CHLORIDE LEVEL 102 MEQ/L (98-107); CREATININE FOR GFR 6.21 MG/DL (0.70-1.30); GLOMERULAR FILTRATION RATE 9.8 (>49); GLUCOSE, FASTING 100 MG/DL (80-110); POTASSIUM SERUM 4.4 MEQ/L (3.5-5.1); SODIUM LEVEL 139 MEQ/L (136-145); VANCOMYCIN RANDOM 5.8 UG/ML
[2017-02-22] MEDS: HumaLOG INSULIN (NovoLOG) PER UNIT SC ×4 (08:34→20:17)
[2017-02-22 11:51] LABS: BEDSIDE GLUCOSE 94 MG/DL (80-115)
[2017-02-22] MEDS: HEPARIN 1,000 UNITS/ML 10ML VIAL (FOR RADIOLOGY& DIALYSIS ONLY) IV (14:43)
[2017-02-22] MEDS: CHECK TO SEE IF PATIENT IS RECEIVING DIALYSIS TODAY AND REFER TO THE VANCOMYCIN ORDER XX (16:12)
[2017-02-22 16:45] LABS: BEDSIDE GLUCOSE 95 MG/DL (80-115)
[2017-02-22] MEDS: VANCOMYCIN HCL 1,000 MG, VIAL MATE ADAPTER 1 EACH in D5W 250 ML IV (16:51)
[2017-02-22] MEDS: VANCOMYCIN HCL 500 MG in D5W MINI-BAG PLUS 100 ML IV (18:04)
[2017-02-22 19:59] LABS: BEDSIDE GLUCOSE 177 MG/DL (80-115)
[2017-02-23] MEDS: CARVedilol 3.125 MG TAB PO ×2 (05:45→17:42)
[2017-02-23] MEDS: HEPARIN SOD (PORCINE) 5000 UNITS/ML VIAL SC ×3 (05:46→21:00)
[2017-02-23 06:46] LABS: BEDSIDE GLUCOSE 127 MG/DL (80-115)
[2017-02-23 07:41] LABS: HEMATOCRIT 34.2 % (42.0-52.0); HEMOGLOBIN 10.8 g/dl (14.0-18.0); MEAN CORPUSCULAR HEMOGLOBIN 28.3 pg (27.0-33.0); MEAN CORPUSCULAR HGB CONC 31.6 g/dl (32.0-36.5); MEAN CORPUSCULAR VOLUME 89.5 fl (80.0-96.0); PLATELET COUNT, AUTOMATED 158 10^3/uL (150-450); RED BLOOD COUNT 3.82 10^6/uL (4.30-6.10); WHITE BLOOD COUNT 6.7 10^3/uL (4.0-10.0)
[2017-02-23 08:02] LABS: ANION GAP 7 MEQ/L (8-16); BLOOD UREA NITROGEN 26 MG/DL (7-18); CALCIUM LEVEL 9.2 MG/DL (8.8-10.2); CARBON DIOXIDE LEVEL 29 MEQ/L (21-32); CHLORIDE LEVEL 105 MEQ/L (98-107); CREATININE FOR GFR 4.42 MG/DL (0.70-1.30); GLOMERULAR FILTRATION RATE 14.5 (>49); GLUCOSE, FASTING 133 MG/DL (80-110); POTASSIUM SERUM 4.2 MEQ/L (3.5-5.1); SODIUM LEVEL 141 MEQ/L (136-145)
[2017-02-23] MEDS: SERTRALINE HCL 25 MG TABLET PO (08:06)
[2017-02-23] MEDS: LACTOBACILLUS ACIDOPHILUS CAP (BACID) PO ×3 (08:06→17:41)
[2017-02-23] MEDS: ATORVASTATIN 20 MG TAB PO (08:06)
[2017-02-23] MEDS: HumaLOG INSULIN (NovoLOG) PER UNIT SC ×4 (08:07→20:31)
[2017-02-23 12:26] LABS: BEDSIDE GLUCOSE 108 MG/DL (80-115)
[2017-02-23] MEDS: CHECK TO SEE IF PATIENT IS RECEIVING DIALYSIS TODAY AND REFER TO THE VANCOMYCIN ORDER XX (16:00)
[2017-02-23 17:44] LABS: BEDSIDE GLUCOSE 126 MG/DL (80-115)
[2017-02-23 20:09] LABS: BEDSIDE GLUCOSE 101 MG/DL (80-115)
[2017-02-24 05:39] LABS: HEMATOCRIT 35.8 % (42.0-52.0); HEMOGLOBIN 11.1 g/dl (14.0-18.0); MEAN CORPUSCULAR HEMOGLOBIN 27.8 pg (27.0-33.0); MEAN CORPUSCULAR VOLUME 89.7 fl (80.0-96.0); PLATELET COUNT, AUTOMATED 155 10^3/uL (150-450); RED BLOOD COUNT 3.99 10^6/uL (4.30-6.10); RED CELL DISTRIBUTION WIDTH 18.2 % (11.5-14.5); WHITE BLOOD COUNT 6.8 10^3/uL (4.0-10.0)
[2017-02-24 05:55] LABS: ANION GAP 9 MEQ/L (8-16); BLOOD UREA NITROGEN 30 MG/DL (7-18); CALCIUM LEVEL 8.5 MG/DL (8.8-10.2); CARBON DIOXIDE LEVEL 28 MEQ/L (21-32); CHLORIDE LEVEL 104 MEQ/L (98-107); CREATININE FOR GFR 5.27 MG/DL (0.70-1.30); GLOMERULAR FILTRATION RATE 11.8 (>49); GLUCOSE, FASTING 89 MG/DL (80-110); POTASSIUM SERUM 4.4 MEQ/L (3.5-5.1); SODIUM LEVEL 141 MEQ/L (136-145)
[2017-02-24] MEDS: CARVedilol 3.125 MG TAB PO ×2 (06:00→07:33)
[2017-02-24] MEDS: HEPARIN SOD (PORCINE) 5000 UNITS/ML VIAL SC ×3 (06:00→22:00)
[2017-02-24] MEDS: HumaLOG INSULIN (NovoLOG) PER UNIT SC ×4 (07:33→21:00)
[2017-02-24] MEDS: SERTRALINE HCL 25 MG TABLET PO (07:34)
[2017-02-24] MEDS: LACTOBACILLUS ACIDOPHILUS CAP (BACID) PO ×3 (07:34→17:46)
[2017-02-24] MEDS: ATORVASTATIN 20 MG TAB PO (07:34)
[2017-02-24] MEDS: HEPARIN 1,000 UNITS/ML 10ML VIAL (FOR RADIOLOGY& DIALYSIS ONLY) IV (13:13)
[2017-02-24 13:21] LABS: BEDSIDE GLUCOSE 79 MG/DL (80-115)
[2017-02-24] MEDS: LOPERAMIDE 2 MG CAP PO (15:48)
[2017-02-24] MEDS: VANCOMYCIN HCL 1,000 MG, VIAL MATE ADAPTER 1 EACH in D5W 250 ML IV (15:48)
[2017-02-24] MEDS: CHECK TO SEE IF PATIENT IS RECEIVING DIALYSIS TODAY AND REFER TO THE VANCOMYCIN ORDER XX (15:48)
[2017-02-24 17:27] LABS: BEDSIDE GLUCOSE 121 MG/DL (80-115)
[2017-02-24 21:50] LABS: BEDSIDE GLUCOSE 116 MG/DL (80-115)
[2017-02-25] MEDS: HEPARIN SOD (PORCINE) 5000 UNITS/ML VIAL SC ×3 (06:00→21:16)
[2017-02-25] MEDS: CARVedilol 3.125 MG TAB PO ×2 (06:26→17:52)
[2017-02-25] MEDS: HumaLOG INSULIN (NovoLOG) PER UNIT SC ×4 (07:30→21:00)
[2017-02-25 08:08] LABS: BEDSIDE GLUCOSE 107 MG/DL (80-115)
[2017-02-25] MEDS: LACTOBACILLUS ACIDOPHILUS CAP (BACID) PO ×3 (08:25→17:52)
[2017-02-25] MEDS: SERTRALINE HCL 25 MG TABLET PO (08:25)
[2017-02-25] MEDS: ATORVASTATIN 20 MG TAB PO (08:25)
[2017-02-25 11:41] LABS: BEDSIDE GLUCOSE 96 MG/DL (80-115)
[2017-02-25] MEDS: CHECK TO SEE IF PATIENT IS RECEIVING DIALYSIS TODAY AND REFER TO THE VANCOMYCIN ORDER XX (13:03)
[2017-02-25 17:09] LABS: BEDSIDE GLUCOSE 108 MG/DL (80-115)
[2017-02-25 20:39] LABS: BEDSIDE GLUCOSE 103 MG/DL (80-115)
[2017-02-26] MEDS: CARVedilol 3.125 MG TAB PO ×2 (05:52→17:35)
[2017-02-26] MEDS: HEPARIN SOD (PORCINE) 5000 UNITS/ML VIAL SC ×3 (05:52→21:15)
[2017-02-26 06:31] LABS: BEDSIDE GLUCOSE 103 MG/DL (80-115)
[2017-02-26] MEDS: HumaLOG INSULIN (NovoLOG) PER UNIT SC ×4 (07:30→21:14)
[2017-02-26] MEDS: SERTRALINE HCL 25 MG TABLET PO (10:15)
[2017-02-26] MEDS: LACTOBACILLUS ACIDOPHILUS CAP (BACID) PO ×3 (10:15→17:34)
[2017-02-26] MEDS: ATORVASTATIN 20 MG TAB PO (10:15)
[2017-02-26 12:18] LABS: BEDSIDE GLUCOSE 86 MG/DL (80-115)
[2017-02-26] MEDS: CHECK TO SEE IF PATIENT IS RECEIVING DIALYSIS TODAY AND REFER TO THE VANCOMYCIN ORDER XX (16:00)
[2017-02-26 19:00] LABS: BEDSIDE GLUCOSE 125 MG/DL (80-115)
[2017-02-26 21:29] LABS: BEDSIDE GLUCOSE 112 MG/DL (80-115)
[2017-02-27] MEDS: CARVedilol 3.125 MG TAB PO ×2 (06:00→18:23)
[2017-02-27] MEDS: HEPARIN SOD (PORCINE) 5000 UNITS/ML VIAL SC ×3 (06:00→22:05)
[2017-02-27] MEDS: ATORVASTATIN 20 MG TAB PO (06:06)
[2017-02-27] MEDS: SERTRALINE HCL 25 MG TABLET PO (06:07)
[2017-02-27] MEDS: LACTOBACILLUS ACIDOPHILUS CAP (BACID) PO ×3 (06:07→18:22)
[2017-02-27 08:32] LABS: HEMATOCRIT 34.3 % (42.0-52.0); HEMOGLOBIN 10.5 g/dl (14.0-18.0); MEAN CORPUSCULAR HEMOGLOBIN 27.2 pg (27.0-33.0); MEAN CORPUSCULAR HGB CONC 30.6 g/dl (32.0-36.5); MEAN CORPUSCULAR VOLUME 88.9 fl (80.0-96.0); PLATELET COUNT, AUTOMATED 120 10^3/uL (150-450); RED BLOOD COUNT 3.86 10^6/uL (4.30-6.10); RED CELL DISTRIBUTION WIDTH 17.8 % (11.5-14.5); WHITE BLOOD COUNT 4.6 10^3/uL (4.0-10.0)
[2017-02-27 08:53] LABS: ANION GAP 11 MEQ/L (8-16); BLOOD UREA NITROGEN 30 MG/DL (7-18); CALCIUM LEVEL 8.1 MG/DL (8.8-10.2); CARBON DIOXIDE LEVEL 26 MEQ/L (21-32); CHLORIDE LEVEL 102 MEQ/L (98-107); CREATININE FOR GFR 5.69 MG/DL (0.70-1.30); GLOMERULAR FILTRATION RATE 10.8 (>49); GLUCOSE, FASTING 120 MG/DL (80-110); POTASSIUM SERUM 4.3 MEQ/L (3.5-5.1); SODIUM LEVEL 139 MEQ/L (136-145)
[2017-02-27 09:15] LABS: ALBUMIN 2.9 GM/DL (3.2-5.2); PHOSPHORUS LEVEL 4.8 MG/DL (2.5-4.9)
[2017-02-27] MEDS: HumaLOG INSULIN (NovoLOG) PER UNIT SC ×4 (09:20→20:49)
[2017-02-27 09:27] LABS: BASO # 0.1 10^3/uL (0.0-0.2); BASO % 1.1 % (0.0-1.0); EOS # 0.2 10^3/uL (0.0-0.50); IMMATURE GRANULOCYTE % 0.7 % (0-0); LYMPH # 0.5 10^3/uL (1.5-4.5); LYMPH % 10.9 % (24.0-44.0); MONO # 0.9 10^3/uL (0.0-0.8); MONO % 18.7 % (0.0-5.0); NEUTROPHILS # 2.9 10^3/uL (1.8-7.7); NEUTROPHILS % 63.6 % (36.0-66.0)
[2017-02-27 09:35] LABS: DIFF SLIDE NUMBER 45
[2017-02-27] MEDS: HEPARIN 1,000 UNITS/ML 10ML VIAL (FOR RADIOLOGY& DIALYSIS ONLY) IV (10:15)
[2017-02-27 14:05] LABS: PLATELET ESTIMATE DECREASED (NORMAL)
[2017-02-27] MEDS: CHECK TO SEE IF PATIENT IS RECEIVING DIALYSIS TODAY AND REFER TO THE VANCOMYCIN ORDER XX (17:14)
[2017-02-27] MEDS: VANCOMYCIN HCL 1,000 MG, VIAL MATE ADAPTER 1 EACH in D5W 250 ML IV (17:15)
[2017-02-27 17:28] LABS: BEDSIDE GLUCOSE 119 MG/DL (80-115)
[2017-02-27 20:29] LABS: BEDSIDE GLUCOSE 144 MG/DL (80-115)
[2017-02-28] MEDS: CARVedilol 3.125 MG TAB PO ×2 (06:00→18:00)
[2017-02-28] MEDS: HEPARIN SOD (PORCINE) 5000 UNITS/ML VIAL SC ×3 (06:04→21:42)
[2017-02-28] MEDS: HumaLOG INSULIN (NovoLOG) PER UNIT SC ×4 (08:03→21:00)
[2017-02-28] MEDS: SERTRALINE HCL 25 MG TABLET PO (08:53)
[2017-02-28] MEDS: LACTOBACILLUS ACIDOPHILUS CAP (BACID) PO ×3 (08:53→18:00)
[2017-02-28] MEDS: ATORVASTATIN 20 MG TAB PO (08:53)
[2017-02-28 11:40] LABS: BEDSIDE GLUCOSE 107 MG/DL (80-115)
[2017-02-28 12:24] LABS: BEDSIDE GLUCOSE 115 MG/DL (80-115)
[2017-02-28] MEDS: ACETAMINOPHEN TAB 650MG DOSE (2X325MG) PO (15:57)
[2017-02-28] MEDS: CHECK TO SEE IF PATIENT IS RECEIVING DIALYSIS TODAY AND REFER TO THE VANCOMYCIN ORDER XX (16:00)
[2017-02-28 17:25] LABS: BEDSIDE GLUCOSE 92 MG/DL (80-115)
[2017-03-01] MEDS: CARVedilol 3.125 MG TAB PO ×2 (06:00→18:08)
[2017-03-01] MEDS: HEPARIN SOD (PORCINE) 5000 UNITS/ML VIAL SC ×3 (06:00→21:40)
[2017-03-01 06:24] LABS: BEDSIDE GLUCOSE 90 MG/DL (80-115)
[2017-03-01] MEDS: HumaLOG INSULIN (NovoLOG) PER UNIT SC ×4 (07:30→21:00)
[2017-03-01] MEDS: HEPARIN 1,000 UNITS/ML 10ML VIAL (FOR RADIOLOGY& DIALYSIS ONLY) IV (11:45)
[2017-03-01] MEDS: LACTOBACILLUS ACIDOPHILUS CAP (BACID) PO ×3 (12:30→18:07)
[2017-03-01 13:35] LABS: BEDSIDE GLUCOSE 78 MG/DL (80-115)
[2017-03-01] MEDS: VANCOMYCIN HCL 750 MG, VIAL MATE ADAPTER 1 EACH in D5W 250 ML IV (14:00)
[2017-03-01] MEDS: SERTRALINE HCL 25 MG TABLET PO (14:00)
[2017-03-01] MEDS: ATORVASTATIN 20 MG TAB PO (14:07)
[2017-03-01] MEDS: CHECK TO SEE IF PATIENT IS RECEIVING DIALYSIS TODAY AND REFER TO THE VANCOMYCIN ORDER XX (14:11)
[2017-03-01 14:42] LABS: BEDSIDE GLUCOSE 100 MG/DL (80-115)
[2017-03-01 18:01] LABS: BEDSIDE GLUCOSE 97 MG/DL (80-115)
[2017-03-01 21:37] LABS: BEDSIDE GLUCOSE 89 MG/DL (80-115)
[2017-03-02] MEDS: CARVedilol 3.125 MG TAB PO ×2 (06:00→17:53)
[2017-03-02] MEDS: HEPARIN SOD (PORCINE) 5000 UNITS/ML VIAL SC ×3 (06:00→22:00)
[2017-03-02 06:33] LABS: BEDSIDE GLUCOSE 98 MG/DL (80-115)
[2017-03-02] MEDS: HumaLOG INSULIN (NovoLOG) PER UNIT SC ×4 (07:30→21:00)
[2017-03-02] MEDS: SERTRALINE HCL 25 MG TABLET PO (09:08)
[2017-03-02] MEDS: LACTOBACILLUS ACIDOPHILUS CAP (BACID) PO ×3 (09:08→17:53)
[2017-03-02] MEDS: ATORVASTATIN 20 MG TAB PO (09:08)
[2017-03-02 09:36] LABS: HEMATOCRIT 35.9 % (42.0-52.0); HEMOGLOBIN 11.4 g/dl (14.0-18.0); MEAN CORPUSCULAR HEMOGLOBIN 27.3 pg (27.0-33.0); MEAN CORPUSCULAR HGB CONC 31.8 g/dl (32.0-36.5); MEAN CORPUSCULAR VOLUME 86.1 fl (80.0-96.0); PLATELET COUNT, AUTOMATED 130 10^3/uL (150-450); RED BLOOD COUNT 4.17 10^6/uL (4.30-6.10); RED CELL DISTRIBUTION WIDTH 17.2 % (11.5-14.5); WHITE BLOOD COUNT 5.1 10^3/uL (4.0-10.0)
[2017-03-02 10:17] LABS: ANION GAP 11 MEQ/L (8-16); BLOOD UREA NITROGEN 17 MG/DL (7-18); CALCIUM LEVEL 8.8 MG/DL (8.8-10.2); CARBON DIOXIDE LEVEL 28 MEQ/L (21-32); CHLORIDE LEVEL 99 MEQ/L (98-107); CREATININE FOR GFR 4.27 MG/DL (0.70-1.30); GLUCOSE, FASTING 109 MG/DL (80-110); POTASSIUM SERUM 3.6 MEQ/L (3.5-5.1); SODIUM LEVEL 138 MEQ/L (136-145)
[2017-03-02 11:49] LABS: BEDSIDE GLUCOSE 94 MG/DL (80-115)
[2017-03-02] MEDS: CHECK TO SEE IF PATIENT IS RECEIVING DIALYSIS TODAY AND REFER TO THE VANCOMYCIN ORDER XX (15:05)
[2017-03-02 17:16] LABS: BEDSIDE GLUCOSE 94 MG/DL (80-115)
[2017-03-02 21:55] LABS: BEDSIDE GLUCOSE 84 MG/DL (80-115)
[2017-03-03] MEDS ORDERED: NYSTATIN 100,000 UNITS/GM TOPICAL PWD 15 GM TOP (02:15)
[2017-03-03] MEDS: LOPERAMIDE 2 MG CAP PO (02:17)
[2017-03-03 05:05] LABS: BEDSIDE GLUCOSE 75 MG/DL (80-115)
[2017-03-03] MEDS: CARVedilol 3.125 MG TAB PO ×2 (05:49→19:38)
[2017-03-03] MEDS: HEPARIN SOD (PORCINE) 5000 UNITS/ML VIAL SC ×3 (05:50→21:43)
[2017-03-03] MEDS: ATORVASTATIN 20 MG TAB PO (05:50)
[2017-03-03] MEDS: LACTOBACILLUS ACIDOPHILUS CAP (BACID) PO ×3 (05:50→19:37)
[2017-03-03] MEDS: SERTRALINE HCL 25 MG TABLET PO (05:50)
[2017-03-03 07:18] LABS: VANCOMYCIN RANDOM 22.9 UG/ML
[2017-03-03] MEDS: HumaLOG INSULIN (NovoLOG) PER UNIT SC ×4 (07:30→21:00)
[2017-03-03] MEDS: HEPARIN 1,000 UNITS/ML 10ML VIAL (FOR RADIOLOGY& DIALYSIS ONLY) IV (11:00)
[2017-03-03] MEDS: CHECK TO SEE IF PATIENT IS RECEIVING DIALYSIS TODAY AND REFER TO THE VANCOMYCIN ORDER XX (16:00)
[2017-03-03 16:35] LABS: BEDSIDE GLUCOSE 91 MG/DL (80-115)
[2017-03-03] MEDS: VANCOMYCIN HCL 750 MG, VIAL MATE ADAPTER 1 EACH in D5W 250 ML IV (19:37)
[2017-03-03 20:58] LABS: BEDSIDE GLUCOSE 110 MG/DL (80-115)
[2017-03-04] MEDS: CARVedilol 3.125 MG TAB PO ×2 (05:36→17:48)
[2017-03-04] MEDS: HEPARIN SOD (PORCINE) 5000 UNITS/ML VIAL SC ×3 (05:39→20:50)
[2017-03-04] MEDS: HumaLOG INSULIN (NovoLOG) PER UNIT SC ×4 (07:30→20:50)
[2017-03-04 07:39] LABS: BEDSIDE GLUCOSE 97 MG/DL (80-115)
[2017-03-04] MEDS: LACTOBACILLUS ACIDOPHILUS CAP (BACID) PO ×3 (07:58→17:47)
[2017-03-04] MEDS: ATORVASTATIN 20 MG TAB PO (07:58)
[2017-03-04] MEDS: SERTRALINE HCL 25 MG TABLET PO (07:59)
[2017-03-04 12:37] LABS: BEDSIDE GLUCOSE 165 MG/DL (80-115)
[2017-03-04] MEDS: CHECK TO SEE IF PATIENT IS RECEIVING DIALYSIS TODAY AND REFER TO THE VANCOMYCIN ORDER XX (16:00)
[2017-03-04 17:42] LABS: BEDSIDE GLUCOSE 187 MG/DL (80-115)
[2017-03-04 20:34] LABS: BEDSIDE GLUCOSE 87 MG/DL (80-115)
[2017-03-05] MEDS: CARVedilol 3.125 MG TAB PO ×2 (05:30→17:16)
[2017-03-05] MEDS: HEPARIN SOD (PORCINE) 5000 UNITS/ML VIAL SC ×3 (05:37→22:00)
[2017-03-05 07:16] LABS: BEDSIDE GLUCOSE 82 MG/DL (80-115)
[2017-03-05] MEDS: HumaLOG INSULIN (NovoLOG) PER UNIT SC ×4 (07:30→20:51)
[2017-03-05] MEDS: LACTOBACILLUS ACIDOPHILUS CAP (BACID) PO ×3 (09:20→17:56)
[2017-03-05] MEDS: SERTRALINE HCL 25 MG TABLET PO (09:21)
[2017-03-05] MEDS: ATORVASTATIN 20 MG TAB PO (09:21)
[2017-03-05 12:55] LABS: BEDSIDE GLUCOSE 88 MG/DL (80-115)
[2017-03-05] MEDS: CHECK TO SEE IF PATIENT IS RECEIVING DIALYSIS TODAY AND REFER TO THE VANCOMYCIN ORDER XX (16:00)
[2017-03-05 17:10] LABS: BEDSIDE GLUCOSE 86 MG/DL (80-115)
[2017-03-05 20:40] LABS: BEDSIDE GLUCOSE 123 MG/DL (80-115)
[2017-03-06] MEDS: HEPARIN SOD (PORCINE) 5000 UNITS/ML VIAL SC ×3 (06:00→21:54)
[2017-03-06] MEDS: SERTRALINE HCL 25 MG TABLET PO (06:48)
[2017-03-06] MEDS: ATORVASTATIN 20 MG TAB PO (06:48)
[2017-03-06] MEDS: LACTOBACILLUS ACIDOPHILUS CAP (BACID) PO ×3 (06:48→17:00)
[2017-03-06] MEDS: CARVedilol 3.125 MG TAB PO ×2 (06:49→17:00)
[2017-03-06] MEDS: HumaLOG INSULIN (NovoLOG) PER UNIT SC ×4 (07:30→21:00)
[2017-03-06 09:07] LABS: HEMATOCRIT 34.3 % (42.0-52.0); MEAN CORPUSCULAR HEMOGLOBIN 27.2 pg (27.0-33.0); MEAN CORPUSCULAR HGB CONC 32.1 g/dl (32.0-36.5); MEAN CORPUSCULAR VOLUME 84.7 fl (80.0-96.0); PLATELET COUNT, AUTOMATED 179 10^3/uL (150-450); RED BLOOD COUNT 4.05 10^6/uL (4.30-6.10); RED CELL DISTRIBUTION WIDTH 16.9 % (11.5-14.5); WHITE BLOOD COUNT 5.5 10^3/uL (4.0-10.0)
[2017-03-06 09:15] LABS: BEDSIDE GLUCOSE 108 MG/DL (80-115)
[2017-03-06 09:31] LABS: ANION GAP 8 MEQ/L (8-16); BLOOD UREA NITROGEN 31 MG/DL (7-18); CALCIUM LEVEL 8.1 MG/DL (8.8-10.2); CARBON DIOXIDE LEVEL 28 MEQ/L (21-32); CHLORIDE LEVEL 102 MEQ/L (98-107); CREATININE FOR GFR 5.87 MG/DL (0.70-1.30); GLOMERULAR FILTRATION RATE 10.4 (>49); GLUCOSE, FASTING 113 MG/DL (80-110); POTASSIUM SERUM 3.6 MEQ/L (3.5-5.1); SODIUM LEVEL 138 MEQ/L (136-145)
[2017-03-06] MEDS: HEPARIN 1,000 UNITS/ML 10ML VIAL (FOR RADIOLOGY& DIALYSIS ONLY) IV (13:00)
[2017-03-06] MEDS: CHECK TO SEE IF PATIENT IS RECEIVING DIALYSIS TODAY AND REFER TO THE VANCOMYCIN ORDER XX (16:00)
[2017-03-06] MEDS: VANCOMYCIN HCL 750 MG, VIAL MATE ADAPTER 1 EACH in D5W 250 ML IV (17:00)
[2017-03-07] MEDS: CARVedilol 3.125 MG TAB PO ×2 (06:00→17:53)
[2017-03-07] MEDS: HEPARIN SOD (PORCINE) 5000 UNITS/ML VIAL SC ×3 (06:00→22:00)
[2017-03-07] MEDS: HumaLOG INSULIN (NovoLOG) PER UNIT SC ×4 (07:30→21:00)
[2017-03-07] MEDS: LACTOBACILLUS ACIDOPHILUS CAP (BACID) PO ×3 (08:33→17:53)
[2017-03-07] MEDS: ATORVASTATIN 20 MG TAB PO (08:33)
[2017-03-07] MEDS: SERTRALINE HCL 25 MG TABLET PO (08:33)
[2017-03-07 12:31] LABS: BEDSIDE GLUCOSE 109 MG/DL (80-115)
[2017-03-07] MEDS: CHECK TO SEE IF PATIENT IS RECEIVING DIALYSIS TODAY AND REFER TO THE VANCOMYCIN ORDER XX (15:16)
[2017-03-07 18:08] LABS: BEDSIDE GLUCOSE 120 MG/DL (80-115)
[2017-03-07 20:24] LABS: BEDSIDE GLUCOSE 150 MG/DL (80-115)
[2017-03-07 20:25] LABS: BEDSIDE GLUCOSE 123 MG/DL (80-115)
[2017-03-08 02:52] LABS: BEDSIDE GLUCOSE 111 MG/DL (80-115)
[2017-03-08] MEDS: LACTOBACILLUS ACIDOPHILUS CAP (BACID) PO ×3 (05:56→18:38)
[2017-03-08] MEDS: SERTRALINE HCL 25 MG TABLET PO (05:56)
[2017-03-08] MEDS: CARVedilol 3.125 MG TAB PO ×2 (05:56→18:00)
[2017-03-08] MEDS: ATORVASTATIN 20 MG TAB PO (05:56)
[2017-03-08] MEDS: HEPARIN SOD (PORCINE) 5000 UNITS/ML VIAL SC ×3 (05:57→21:46)
[2017-03-08] MEDS: HumaLOG INSULIN (NovoLOG) PER UNIT SC ×4 (07:30→21:00)
[2017-03-08 08:33] LABS: BEDSIDE GLUCOSE 137 MG/DL (80-115)
[2017-03-09 02:10] LABS: BEDSIDE GLUCOSE 105 MG/DL (80-115)
[2017-03-09 02:10] LABS: BEDSIDE GLUCOSE 120 MG/DL (80-115)
[2017-03-09] MEDS: HEPARIN SOD (PORCINE) 5000 UNITS/ML VIAL SC ×3 (05:40→20:39)
[2017-03-09] MEDS: CARVedilol 3.125 MG TAB PO ×2 (05:41→18:10)
[2017-03-09] MEDS: SERTRALINE HCL 25 MG TABLET PO (07:50)
[2017-03-09] MEDS: LACTOBACILLUS ACIDOPHILUS CAP (BACID) PO ×3 (07:50→18:09)
[2017-03-09] MEDS: ATORVASTATIN 20 MG TAB PO (07:50)
[2017-03-09] MEDS: HumaLOG INSULIN (NovoLOG) PER UNIT SC ×4 (07:50→20:38)
[2017-03-09 09:23] LABS: HEMATOCRIT 35.7 % (42.0-52.0); HEMOGLOBIN 11.2 g/dl (14.0-18.0); MEAN CORPUSCULAR HEMOGLOBIN 27.1 pg (27.0-33.0); MEAN CORPUSCULAR HGB CONC 31.4 g/dl (32.0-36.5); MEAN CORPUSCULAR VOLUME 86.4 fl (80.0-96.0); PLATELET COUNT, AUTOMATED 194 10^3/uL (150-450); RED BLOOD COUNT 4.13 10^6/uL (4.30-6.10); RED CELL DISTRIBUTION WIDTH 16.7 % (11.5-14.5); WHITE BLOOD COUNT 6.6 10^3/uL (4.0-10.0)
[2017-03-09 09:41] LABS: ANION GAP 6 MEQ/L (8-16); BLOOD UREA NITROGEN 16 MG/DL (7-18); CALCIUM LEVEL 8.3 MG/DL (8.8-10.2); CARBON DIOXIDE LEVEL 31 MEQ/L (21-32); CHLORIDE LEVEL 103 MEQ/L (98-107); CREATININE FOR GFR 4.19 MG/DL (0.70-1.30); GLOMERULAR FILTRATION RATE 15.4 (>49); GLUCOSE, FASTING 142 MG/DL (80-110); POTASSIUM SERUM 3.6 MEQ/L (3.5-5.1); SODIUM LEVEL 140 MEQ/L (136-145)
[2017-03-09 11:30] LABS: BEDSIDE GLUCOSE 164 MG/DL (80-115)
[2017-03-09 13:36] LABS: BEDSIDE GLUCOSE 155 MG/DL (80-115)
[2017-03-09 18:18] LABS: BEDSIDE GLUCOSE 128 MG/DL (80-115)
[2017-03-10 02:41] LABS: BEDSIDE GLUCOSE 98 MG/DL (80-115)
[2017-03-10] MEDS: ACETAMINOPHEN TAB 650MG DOSE (2X325MG) PO (04:49)
[2017-03-10] MEDS: HEPARIN SOD (PORCINE) 5000 UNITS/ML VIAL SC ×4 (06:00→21:49)
[2017-03-10] MEDS: SERTRALINE HCL 25 MG TABLET PO (06:33)
[2017-03-10] MEDS: LACTOBACILLUS ACIDOPHILUS CAP (BACID) PO ×3 (06:33→18:38)
[2017-03-10] MEDS: CARVedilol 3.125 MG TAB PO ×2 (06:35→18:00)
[2017-03-10] MEDS: HumaLOG INSULIN (NovoLOG) PER UNIT SC ×4 (07:30→21:00)
[2017-03-10] MEDS: ATORVASTATIN 20 MG TAB PO (09:00)
[2017-03-10] MEDS: HEPARIN 1,000 UNITS/ML 10ML VIAL (FOR RADIOLOGY& DIALYSIS ONLY) IV (12:15)
[2017-03-10] MEDS: LOPERAMIDE 2 MG CAP PO (15:57)
[2017-03-10] MEDS: SANTYL OINT 30GM TOP (21:48)
[2017-03-11 02:13] LABS: BEDSIDE GLUCOSE 131 MG/DL (80-115)
[2017-03-11 02:13] LABS: BEDSIDE GLUCOSE 113 MG/DL (80-115)
[2017-03-11 02:13] LABS: BEDSIDE GLUCOSE 154 MG/DL (80-115)
[2017-03-11] MEDS: HEPARIN SOD (PORCINE) 5000 UNITS/ML VIAL SC ×3 (06:00→19:46)
[2017-03-11] MEDS: CARVedilol 3.125 MG TAB PO ×2 (06:02→17:27)
[2017-03-11] MEDS: HumaLOG INSULIN (NovoLOG) PER UNIT SC ×4 (07:30→19:45)
[2017-03-11] MEDS: ATORVASTATIN 20 MG TAB PO (08:32)
[2017-03-11] MEDS: SERTRALINE HCL 25 MG TABLET PO (08:32)
[2017-03-11] MEDS: LACTOBACILLUS ACIDOPHILUS CAP (BACID) PO ×3 (08:32→17:27)
[2017-03-11] MEDS: SANTYL OINT 30GM TOP (08:32)
[2017-03-11 21:30] LABS: BEDSIDE GLUCOSE 117 MG/DL (80-115)
[2017-03-11 21:30] LABS: BEDSIDE GLUCOSE 103 MG/DL (80-115)
[2017-03-11 21:30] LABS: BEDSIDE GLUCOSE 135 MG/DL (80-115)
[2017-03-11 21:30] LABS: BEDSIDE GLUCOSE 112 MG/DL (80-115)
[2017-03-12] MEDS: HEPARIN SOD (PORCINE) 5000 UNITS/ML VIAL SC ×3 (05:03→22:00)
[2017-03-12] MEDS: CARVedilol 3.125 MG TAB PO ×2 (05:45→18:23)
[2017-03-12] MEDS: HumaLOG INSULIN (NovoLOG) PER UNIT SC ×4 (07:30→21:00)
[2017-03-12] MEDS: SANTYL OINT 30GM TOP (08:23)
[2017-03-12] MEDS: LACTOBACILLUS ACIDOPHILUS CAP (BACID) PO ×3 (08:23→18:23)
[2017-03-12] MEDS: SERTRALINE HCL 25 MG TABLET PO (08:23)
[2017-03-12] MEDS: ATORVASTATIN 20 MG TAB PO (08:23)
[2017-03-12] MEDS: LOPERAMIDE 2 MG CAP PO (12:52)
[2017-03-12 19:14] LABS: BEDSIDE GLUCOSE 100 MG/DL (80-115)
[2017-03-12 23:32] LABS: BEDSIDE GLUCOSE 151 MG/DL (80-115)
[2017-03-12 23:32] LABS: BEDSIDE GLUCOSE 95 MG/DL (80-115)
[2017-03-12 23:32] LABS: BEDSIDE GLUCOSE 117 MG/DL (80-115)
[2017-03-13] MEDS: HEPARIN SOD (PORCINE) 5000 UNITS/ML VIAL SC ×4 (06:00→21:59)
[2017-03-13] MEDS: LACTOBACILLUS ACIDOPHILUS CAP (BACID) PO ×3 (06:16→18:44)
[2017-03-13] MEDS: ATORVASTATIN 20 MG TAB PO (06:16)
[2017-03-13] MEDS: CARVedilol 3.125 MG TAB PO ×2 (06:17→18:00)
[2017-03-13] MEDS: SERTRALINE HCL 25 MG TABLET PO (06:17)
[2017-03-13 07:12] LABS: HEMATOCRIT 35.8 % (42.0-52.0); HEMOGLOBIN 11.3 g/dl (14.0-18.0); MEAN CORPUSCULAR HEMOGLOBIN 26.5 pg (27.0-33.0); MEAN CORPUSCULAR HGB CONC 31.6 g/dl (32.0-36.5); PLATELET COUNT, AUTOMATED 206 10^3/uL (150-450); RED BLOOD COUNT 4.26 10^6/uL (4.30-6.10); RED CELL DISTRIBUTION WIDTH 16.8 % (11.5-14.5); WHITE BLOOD COUNT 6.7 10^3/uL (4.0-10.0)
[2017-03-13] MEDS: HumaLOG INSULIN (NovoLOG) PER UNIT SC ×4 (07:30→21:00)
[2017-03-13 07:33] LABS: ANION GAP 9 MEQ/L (8-16); BLOOD UREA NITROGEN 29 MG/DL (7-18); CALCIUM LEVEL 8.6 MG/DL (8.8-10.2); CARBON DIOXIDE LEVEL 25 MEQ/L (21-32); CHLORIDE LEVEL 103 MEQ/L (98-107); CREATININE FOR GFR 5.43 MG/DL (0.70-1.30); GLOMERULAR FILTRATION RATE 11.4 (>49); GLUCOSE, FASTING 121 MG/DL (80-110); POTASSIUM SERUM 4.2 MEQ/L (3.5-5.1); SODIUM LEVEL 137 MEQ/L (136-145)
[2017-03-13] MEDS: SANTYL OINT 30GM TOP (09:17)
[2017-03-13] MEDS: HEPARIN 1,000 UNITS/ML 10ML VIAL (FOR RADIOLOGY& DIALYSIS ONLY) IV (12:00)
[2017-03-13 18:45] LABS: BEDSIDE GLUCOSE 102 MG/DL (80-115)
[2017-03-14 03:56] LABS: BEDSIDE GLUCOSE 99 MG/DL (80-115)
[2017-03-14] MEDS: HEPARIN SOD (PORCINE) 5000 UNITS/ML VIAL SC ×3 (05:52→22:00)
[2017-03-14] MEDS: CARVedilol 3.125 MG TAB PO ×2 (06:20→17:57)
[2017-03-14] MEDS: HumaLOG INSULIN (NovoLOG) PER UNIT SC ×4 (06:22→21:00)
[2017-03-14] MEDS: SERTRALINE HCL 25 MG TABLET PO (08:17)
[2017-03-14] MEDS: LACTOBACILLUS ACIDOPHILUS CAP (BACID) PO ×3 (08:17→17:58)
[2017-03-14] MEDS: ATORVASTATIN 20 MG TAB PO (08:17)
[2017-03-14] MEDS: SANTYL OINT 30GM TOP (08:18)
[2017-03-14 13:23] LABS: BEDSIDE GLUCOSE 110 MG/DL (80-115)
[2017-03-15 03:12] LABS: BEDSIDE GLUCOSE 147 MG/DL (80-115)
[2017-03-15 03:12] LABS: BEDSIDE GLUCOSE 123 MG/DL (80-115)
[2017-03-15 03:12] LABS: BEDSIDE GLUCOSE 147 MG/DL (80-115)
[2017-03-15] MEDS: HEPARIN SOD (PORCINE) 5000 UNITS/ML VIAL SC ×3 (06:00→22:00)
[2017-03-15] MEDS: LACTOBACILLUS ACIDOPHILUS CAP (BACID) PO ×3 (06:09→18:09)
[2017-03-15] MEDS: ATORVASTATIN 20 MG TAB PO (06:09)
[2017-03-15] MEDS: CARVedilol 3.125 MG TAB PO ×2 (06:10→18:00)
[2017-03-15] MEDS: SERTRALINE HCL 25 MG TABLET PO (06:10)
[2017-03-15] MEDS: HumaLOG INSULIN (NovoLOG) PER UNIT SC ×4 (07:30→21:00)
[2017-03-15] MEDS: SANTYL OINT 30GM TOP (09:00)
[2017-03-15 10:32] LABS: BEDSIDE GLUCOSE 127 MG/DL (80-115)
[2017-03-15] MEDS: LOPERAMIDE 2 MG CAP PO (15:30)
[2017-03-16] MEDS: HEPARIN SOD (PORCINE) 5000 UNITS/ML VIAL SC ×3 (05:25→21:33)
[2017-03-16] MEDS: CARVedilol 3.125 MG TAB PO ×2 (05:26→17:49)
[2017-03-16 05:49] LABS: BEDSIDE GLUCOSE 110 MG/DL (80-115)
[2017-03-16 05:49] LABS: BEDSIDE GLUCOSE 164 MG/DL (80-115)
[2017-03-16 05:49] LABS: BEDSIDE GLUCOSE 134 MG/DL (80-115)
[2017-03-16] MEDS: LACTOBACILLUS ACIDOPHILUS CAP (BACID) PO ×3 (08:21→17:55)
[2017-03-16] MEDS: ATORVASTATIN 20 MG TAB PO (08:21)
[2017-03-16] MEDS: SERTRALINE HCL 25 MG TABLET PO (08:21)
[2017-03-16] MEDS: HumaLOG INSULIN (NovoLOG) PER UNIT SC ×4 (08:38→21:00)
[2017-03-16 09:37] LABS: HEMATOCRIT 36.4 % (42.0-52.0); HEMOGLOBIN 11.6 g/dl (14.0-18.0); MEAN CORPUSCULAR HGB CONC 31.9 g/dl (32.0-36.5); MEAN CORPUSCULAR VOLUME 84.8 fl (80.0-96.0); PLATELET COUNT, AUTOMATED 211 10^3/uL (150-450); RED BLOOD COUNT 4.29 10^6/uL (4.30-6.10); RED CELL DISTRIBUTION WIDTH 17.2 % (11.5-14.5); WHITE BLOOD COUNT 6.8 10^3/uL (4.0-10.0)
[2017-03-16 09:49] LABS: ANION GAP 8 MEQ/L (8-16); BLOOD UREA NITROGEN 19 MG/DL (7-18); CALCIUM LEVEL 8.5 MG/DL (8.8-10.2); CARBON DIOXIDE LEVEL 27 MEQ/L (21-32); CHLORIDE LEVEL 103 MEQ/L (98-107); CREATININE FOR GFR 4.02 MG/DL (0.70-1.30); GLOMERULAR FILTRATION RATE 16.1 (>49); GLUCOSE, FASTING 182 MG/DL (70-100); POTASSIUM SERUM 4.1 MEQ/L (3.5-5.1); SODIUM LEVEL 138 MEQ/L (136-145)
[2017-03-16 21:19] LABS: BEDSIDE GLUCOSE 112 MG/DL (80-115)
[2017-03-17] MEDS: CARVedilol 3.125 MG TAB PO ×2 (05:50→18:40)
[2017-03-17] MEDS: ATORVASTATIN 20 MG TAB PO (05:50)
[2017-03-17] MEDS: HEPARIN SOD (PORCINE) 5000 UNITS/ML VIAL SC ×3 (05:50→22:00)
[2017-03-17] MEDS: LACTOBACILLUS ACIDOPHILUS CAP (BACID) PO ×3 (05:50→18:00)
[2017-03-17] MEDS: SERTRALINE HCL 25 MG TABLET PO (05:50)
[2017-03-17] MEDS: HumaLOG INSULIN (NovoLOG) PER UNIT SC ×4 (08:03→21:00)
[2017-03-17] MEDS ORDERED: HEPARIN 1,000 UNITS/ML 10ML VIAL (FOR RADIOLOGY& DIALYSIS ONLY) IV (14:30)
[2017-03-17] MEDS: HEPARIN 1,000 UNITS/ML 10ML VIAL (FOR RADIOLOGY& DIALYSIS ONLY) IV (14:30)
[2017-03-18] MEDS: HEPARIN SOD (PORCINE) 5000 UNITS/ML VIAL SC ×3 (06:00→20:07)
[2017-03-18] MEDS: CARVedilol 3.125 MG TAB PO ×2 (06:00→17:55)
[2017-03-18] MEDS: HumaLOG INSULIN (NovoLOG) PER UNIT SC ×4 (07:30→21:00)
[2017-03-18] MEDS: ATORVASTATIN 20 MG TAB PO (08:57)
[2017-03-18] MEDS: LACTOBACILLUS ACIDOPHILUS CAP (BACID) PO ×3 (08:57→17:55)
[2017-03-18] MEDS: SERTRALINE HCL 25 MG TABLET PO (08:57)
[2017-03-19 02:19] LABS: BEDSIDE GLUCOSE 135 MG/DL (80-115)
[2017-03-19 02:19] LABS: BEDSIDE GLUCOSE 107 MG/DL (80-115)
[2017-03-19 02:19] LABS: BEDSIDE GLUCOSE 110 MG/DL (80-115)
[2017-03-19 02:19] LABS: BEDSIDE GLUCOSE 105 MG/DL (80-115)
[2017-03-19 02:19] LABS: BEDSIDE GLUCOSE 162 MG/DL (80-115)
[2017-03-19 02:19] LABS: BEDSIDE GLUCOSE 94 MG/DL (80-115)
[2017-03-19 02:19] LABS: BEDSIDE GLUCOSE 107 MG/DL (80-115)
[2017-03-19 02:19] LABS: BEDSIDE GLUCOSE 172 MG/DL (80-115)
[2017-03-19 02:19] LABS: BEDSIDE GLUCOSE 125 MG/DL (80-115)
[2017-03-19 02:19] LABS: BEDSIDE GLUCOSE 116 MG/DL (80-115)
[2017-03-19 02:19] LABS: BEDSIDE GLUCOSE 124 MG/DL (80-115)
[2017-03-19] MEDS: HEPARIN SOD (PORCINE) 5000 UNITS/ML VIAL SC ×3 (06:00→20:34)
[2017-03-19] MEDS: CARVedilol 3.125 MG TAB PO ×2 (06:00→07:50)
[2017-03-19] MEDS: LACTOBACILLUS ACIDOPHILUS CAP (BACID) PO ×3 (07:49→17:12)
[2017-03-19] MEDS: HumaLOG INSULIN (NovoLOG) PER UNIT SC ×4 (07:51→20:18)
[2017-03-19] MEDS: LOPERAMIDE 2 MG CAP PO (10:05)
[2017-03-19] MEDS: ATORVASTATIN 20 MG TAB PO (12:41)
[2017-03-19] MEDS: SERTRALINE HCL 25 MG TABLET PO (12:41)
[2017-03-20] MEDS: ATORVASTATIN 20 MG TAB PO (05:54)
[2017-03-20] MEDS: SERTRALINE HCL 25 MG TABLET PO (05:54)
[2017-03-20] MEDS: LACTOBACILLUS ACIDOPHILUS CAP (BACID) PO (05:54)
[2017-03-20] MEDS: CARVedilol 3.125 MG TAB PO ×2 (05:55→18:00)
[2017-03-20] MEDS: HEPARIN SOD (PORCINE) 5000 UNITS/ML VIAL SC ×3 (06:00→21:40)
[2017-03-20] MEDS: LOPERAMIDE 2 MG CAP PO (07:45)
[2017-03-20] MEDS: HumaLOG INSULIN (NovoLOG) PER UNIT SC ×4 (07:45→21:00)
[2017-03-20 11:39] LABS: BEDSIDE GLUCOSE 112 MG/DL (80-115)
[2017-03-20 11:39] LABS: BEDSIDE GLUCOSE 104 MG/DL (80-115)
[2017-03-20 11:39] LABS: BEDSIDE GLUCOSE 113 MG/DL (80-115)
[2017-03-20 11:39] LABS: BEDSIDE GLUCOSE 116 MG/DL (80-115)
[2017-03-20 11:39] LABS: BEDSIDE GLUCOSE 100 MG/DL (80-115)
[2017-03-20 14:32] LABS: HEMATOCRIT 34.2 % (42.0-52.0); HEMOGLOBIN 10.9 g/dl (14.0-18.0); MEAN CORPUSCULAR HEMOGLOBIN 26.7 pg (27.0-33.0); MEAN CORPUSCULAR HGB CONC 31.9 g/dl (32.0-36.5); MEAN CORPUSCULAR VOLUME 83.6 fl (80.0-96.0); PLATELET COUNT, AUTOMATED 157 10^3/uL (150-450); RED BLOOD COUNT 4.09 10^6/uL (4.30-6.10); RED CELL DISTRIBUTION WIDTH 17.1 % (11.5-14.5); WHITE BLOOD COUNT 5.8 10^3/uL (4.0-10.0)
[2017-03-20 15:15] LABS: ANION GAP 9 MEQ/L (8-16); BLOOD UREA NITROGEN 34 MG/DL (7-18); CALCIUM LEVEL 8.4 MG/DL (8.8-10.2); CARBON DIOXIDE LEVEL 25 MEQ/L (21-32); CHLORIDE LEVEL 102 MEQ/L (98-107); CREATININE FOR GFR 5.51 MG/DL (0.70-1.30); GLOMERULAR FILTRATION RATE 11.2 (>49); GLUCOSE, FASTING 137 MG/DL (70-100); SODIUM LEVEL 136 MEQ/L (136-145)
[2017-03-20] MEDS: HEPARIN 1,000 UNITS/ML 10ML VIAL (FOR RADIOLOGY& DIALYSIS ONLY) IV (19:25)
[2017-03-21] MEDS: HEPARIN SOD (PORCINE) 5000 UNITS/ML VIAL SC ×3 (05:59→21:07)
[2017-03-21] MEDS: CARVedilol 3.125 MG TAB PO ×2 (05:59→17:17)
[2017-03-21] MEDS: HumaLOG INSULIN (NovoLOG) PER UNIT SC ×4 (08:40→21:00)
[2017-03-21] MEDS: ATORVASTATIN 20 MG TAB PO (08:41)
[2017-03-21] MEDS: SERTRALINE HCL 25 MG TABLET PO (08:41)
[2017-03-22 04:34] LABS: BEDSIDE GLUCOSE 122 MG/DL (80-115)
[2017-03-22 04:34] LABS: BEDSIDE GLUCOSE 121 MG/DL (80-115)
[2017-03-22 04:34] LABS: BEDSIDE GLUCOSE 151 MG/DL (80-115)
[2017-03-22 04:34] LABS: BEDSIDE GLUCOSE 109 MG/DL (80-115)
[2017-03-22 04:34] LABS: BEDSIDE GLUCOSE 107 MG/DL (80-115)
[2017-03-22 04:34] LABS: BEDSIDE GLUCOSE 126 MG/DL (80-115)
[2017-03-22] MEDS: SERTRALINE HCL 25 MG TABLET PO (05:54)
[2017-03-22] MEDS: ATORVASTATIN 20 MG TAB PO (05:54)
[2017-03-22] MEDS: HEPARIN SOD (PORCINE) 5000 UNITS/ML VIAL SC ×3 (05:57→22:00)
[2017-03-22] MEDS: CARVedilol 3.125 MG TAB PO ×2 (05:57→18:00)
[2017-03-22] MEDS: HumaLOG INSULIN (NovoLOG) PER UNIT SC ×4 (05:58→21:00)
[2017-03-22 22:17] LABS: BEDSIDE GLUCOSE 110 MG/DL (80-115)
[2017-03-22 22:17] LABS: BEDSIDE GLUCOSE 116 MG/DL (80-115)
[2017-03-22 22:17] LABS: BEDSIDE GLUCOSE 148 MG/DL (80-115)
[2017-03-23] MEDS: HEPARIN SOD (PORCINE) 5000 UNITS/ML VIAL SC ×3 (06:00→21:39)
[2017-03-23] MEDS: CARVedilol 3.125 MG TAB PO ×2 (06:46→18:00)
[2017-03-23] MEDS: SERTRALINE HCL 25 MG TABLET PO (06:46)
[2017-03-23] MEDS: ATORVASTATIN 20 MG TAB PO (06:46)
[2017-03-23] MEDS: HumaLOG INSULIN (NovoLOG) PER UNIT SC ×4 (07:30→21:00)
[2017-03-23 09:52] LABS: MEAN CORPUSCULAR HEMOGLOBIN 26.8 pg (27.0-33.0); MEAN CORPUSCULAR HGB CONC 32.4 g/dl (32.0-36.5); MEAN CORPUSCULAR VOLUME 82.7 fl (80.0-96.0); PLATELET COUNT, AUTOMATED 144 10^3/uL (150-450); RED BLOOD COUNT 4.11 10^6/uL (4.30-6.10); RED CELL DISTRIBUTION WIDTH 17.1 % (11.5-14.5); WHITE BLOOD COUNT 5.7 10^3/uL (4.0-10.0)
[2017-03-23 10:15] LABS: ANION GAP 8 MEQ/L (8-16); BLOOD UREA NITROGEN 16 MG/DL (7-18); CALCIUM LEVEL 8.9 MG/DL (8.8-10.2); CARBON DIOXIDE LEVEL 28 MEQ/L (21-32); CHLORIDE LEVEL 104 MEQ/L (98-107); CREATININE FOR GFR 2.79 MG/DL (0.70-1.30); GLOMERULAR FILTRATION RATE 24.6 (>49); GLUCOSE, FASTING 128 MG/DL (70-100); POTASSIUM SERUM 3.6 MEQ/L (3.5-5.1); SODIUM LEVEL 140 MEQ/L (136-145)
[2017-03-23] MEDS: HEPARIN 1,000 UNITS/ML 10ML VIAL (FOR RADIOLOGY& DIALYSIS ONLY) IV (11:15)
[2017-03-23 21:45] LABS: BEDSIDE GLUCOSE 164 MG/DL (80-115)
[2017-03-23 21:45] LABS: BEDSIDE GLUCOSE 132 MG/DL (80-115)
[2017-03-23 21:45] LABS: BEDSIDE GLUCOSE 114 MG/DL (80-115)
[2017-03-23 21:45] LABS: BEDSIDE GLUCOSE 115 MG/DL (80-115)
[2017-03-24] MEDS: HEPARIN SOD (PORCINE) 5000 UNITS/ML VIAL SC ×3 (06:00→22:00)
[2017-03-24] MEDS: CARVedilol 3.125 MG TAB PO ×2 (06:13→18:10)
[2017-03-24] MEDS: HumaLOG INSULIN (NovoLOG) PER UNIT SC ×4 (08:26→21:00)
[2017-03-24] MEDS: ATORVASTATIN 20 MG TAB PO (09:58)
[2017-03-24] MEDS: SERTRALINE HCL 25 MG TABLET PO (09:58)
[2017-03-24 23:13] LABS: BEDSIDE GLUCOSE 96 MG/DL (80-115)
[2017-03-24 23:13] LABS: BEDSIDE GLUCOSE 147 MG/DL (80-115)
[2017-03-24 23:13] LABS: BEDSIDE GLUCOSE 152 MG/DL (80-115)
[2017-03-24 23:13] LABS: BEDSIDE GLUCOSE 151 MG/DL (80-115)
[2017-03-25] MEDS: CARVedilol 3.125 MG TAB PO ×2 (06:00→16:39)
[2017-03-25] MEDS: HEPARIN SOD (PORCINE) 5000 UNITS/ML VIAL SC ×3 (06:00→21:30)
[2017-03-25] MEDS: HumaLOG INSULIN (NovoLOG) PER UNIT SC ×4 (07:30→21:00)
[2017-03-25] MEDS: ATORVASTATIN 20 MG TAB PO (08:52)
[2017-03-25] MEDS: SERTRALINE HCL 25 MG TABLET PO (08:52)
[2017-03-25] MEDS: HEPARIN 1,000 UNITS/ML 10ML VIAL (FOR RADIOLOGY& DIALYSIS ONLY) IV (12:15)
[2017-03-26 03:24] LABS: BEDSIDE GLUCOSE 96 MG/DL (80-115)
[2017-03-26 03:24] LABS: BEDSIDE GLUCOSE 108 MG/DL (80-115)
[2017-03-26] MEDS: HEPARIN SOD (PORCINE) 5000 UNITS/ML VIAL SC ×3 (06:00→21:18)
[2017-03-26 06:14] LABS: BEDSIDE GLUCOSE 108 MG/DL (80-115)
[2017-03-26] MEDS: CARVedilol 3.125 MG TAB PO ×2 (06:38→17:34)
[2017-03-26] MEDS: HumaLOG INSULIN (NovoLOG) PER UNIT SC ×4 (08:11→21:02)
[2017-03-26] MEDS: SERTRALINE HCL 25 MG TABLET PO (08:11)
[2017-03-26] MEDS: ATORVASTATIN 20 MG TAB PO (08:11)
[2017-03-27] MEDS: HEPARIN SOD (PORCINE) 5000 UNITS/ML VIAL SC ×3 (06:05→21:22)
[2017-03-27] MEDS: CARVedilol 3.125 MG TAB PO ×2 (06:06→17:59)
[2017-03-27 09:19] LABS: HEMATOCRIT 35.2 % (42.0-52.0); HEMOGLOBIN 11.1 g/dl (14.0-18.0); MEAN CORPUSCULAR HEMOGLOBIN 26.6 pg (27.0-33.0); MEAN CORPUSCULAR HGB CONC 31.5 g/dl (32.0-36.5); MEAN CORPUSCULAR VOLUME 84.4 fl (80.0-96.0); PLATELET COUNT, AUTOMATED 131 10^3/uL (150-450); RED BLOOD COUNT 4.17 10^6/uL (4.30-6.10); RED CELL DISTRIBUTION WIDTH 17.2 % (11.5-14.5); WHITE BLOOD COUNT 5.4 10^3/uL (4.0-10.0)
[2017-03-27] MEDS: HumaLOG INSULIN (NovoLOG) PER UNIT SC ×4 (09:23→21:00)
[2017-03-27] MEDS: SERTRALINE HCL 25 MG TABLET PO (09:24)
[2017-03-27] MEDS: ATORVASTATIN 20 MG TAB PO (09:24)
[2017-03-27 09:38] LABS: ANION GAP 9 MEQ/L (8-16); BLOOD UREA NITROGEN 31 MG/DL (7-18); CALCIUM LEVEL 8.7 MG/DL (8.8-10.2); CARBON DIOXIDE LEVEL 27 MEQ/L (21-32); CHLORIDE LEVEL 101 MEQ/L (98-107); CREATININE FOR GFR 4.92 MG/DL (0.70-1.30); GLOMERULAR FILTRATION RATE 12.8 (>49); GLUCOSE, FASTING 157 MG/DL (70-100); POTASSIUM SERUM 3.9 MEQ/L (3.5-5.1); SODIUM LEVEL 137 MEQ/L (136-145)
[2017-03-27] MEDS: HEPARIN 1,000 UNITS/ML 10ML VIAL (FOR RADIOLOGY& DIALYSIS ONLY) IV (12:00)
[2017-03-27 20:03] LABS: BEDSIDE GLUCOSE 122 MG/DL (80-115)
[2017-03-27 20:03] LABS: BEDSIDE GLUCOSE 117 MG/DL (80-115)
[2017-03-27 20:03] LABS: BEDSIDE GLUCOSE 121 MG/DL (80-115)
[2017-03-27 20:03] LABS: BEDSIDE GLUCOSE 118 MG/DL (80-115)
[2017-03-27 20:03] LABS: BEDSIDE GLUCOSE 183 MG/DL (80-115)
[2017-03-27 20:03] LABS: BEDSIDE GLUCOSE 79 MG/DL (80-115)
[2017-03-28] MEDS: HEPARIN SOD (PORCINE) 5000 UNITS/ML VIAL SC ×3 (06:01→21:00)
[2017-03-28] MEDS: CARVedilol 3.125 MG TAB PO ×2 (06:15→18:00)
[2017-03-28 07:46] LABS: BEDSIDE GLUCOSE 141 MG/DL (80-115)
[2017-03-28] MEDS: SERTRALINE HCL 25 MG TABLET PO (09:17)
[2017-03-28] MEDS: ATORVASTATIN 20 MG TAB PO (09:18)
[2017-03-28] MEDS: HumaLOG INSULIN (NovoLOG) PER UNIT SC ×4 (09:22→21:00)
[2017-03-28 12:13] LABS: BEDSIDE GLUCOSE 106 MG/DL (80-115)
[2017-03-29 03:03] LABS: BEDSIDE GLUCOSE 104 MG/DL (80-115)
[2017-03-29 03:03] LABS: BEDSIDE GLUCOSE 166 MG/DL (80-115)
[2017-03-29] MEDS: ATORVASTATIN 20 MG TAB PO (05:03)
[2017-03-29] MEDS: SERTRALINE HCL 25 MG TABLET PO (05:03)
[2017-03-29] MEDS: HEPARIN SOD (PORCINE) 5000 UNITS/ML VIAL SC ×3 (05:03→21:50)
[2017-03-29] MEDS: CARVedilol 3.125 MG TAB PO ×2 (05:03→17:25)
[2017-03-29] MEDS: HumaLOG INSULIN (NovoLOG) PER UNIT SC ×4 (07:57→21:00)
[2017-03-29] MEDS: HEPARIN 1,000 UNITS/ML 10ML VIAL (FOR RADIOLOGY& DIALYSIS ONLY) IV (12:30)
[2017-03-29 21:30] LABS: BEDSIDE GLUCOSE 95 MG/DL (80-115)
[2017-03-29 21:30] LABS: BEDSIDE GLUCOSE 108 MG/DL (80-115)
[2017-03-29 21:30] LABS: BEDSIDE GLUCOSE 134 MG/DL (80-115)
[2017-03-29 21:30] LABS: BEDSIDE GLUCOSE 114 MG/DL (80-115)
[2017-03-30] MEDS: HEPARIN SOD (PORCINE) 5000 UNITS/ML VIAL SC ×3 (06:00→22:00)
[2017-03-30] MEDS: CARVedilol 3.125 MG TAB PO ×2 (06:00→18:09)
[2017-03-30] MEDS: HumaLOG INSULIN (NovoLOG) PER UNIT SC ×4 (07:05→21:00)
[2017-03-30] MEDS: ATORVASTATIN 20 MG TAB PO (08:27)
[2017-03-30] MEDS: SERTRALINE HCL 25 MG TABLET PO (08:27)
[2017-03-31] MEDS: HEPARIN SOD (PORCINE) 5000 UNITS/ML VIAL SC ×3 (06:00→21:59)
[2017-03-31] MEDS: CARVedilol 3.125 MG TAB PO ×2 (06:19→17:36)
[2017-03-31] MEDS: SERTRALINE HCL 25 MG TABLET PO (06:19)
[2017-03-31] MEDS: ATORVASTATIN 20 MG TAB PO (06:19)
[2017-03-31 06:57] LABS: HEMOGLOBIN 11.4 g/dl (14.0-18.0); MEAN CORPUSCULAR HEMOGLOBIN 26.2 pg (27.0-33.0); MEAN CORPUSCULAR HGB CONC 31.7 g/dl (32.0-36.5); MEAN CORPUSCULAR VOLUME 82.8 fl (80.0-96.0); PLATELET COUNT, AUTOMATED 150 10^3/uL (150-450); RED BLOOD COUNT 4.35 10^6/uL (4.30-6.10); RED CELL DISTRIBUTION WIDTH 17.2 % (11.5-14.5); WHITE BLOOD COUNT 6.3 10^3/uL (4.0-10.0)
[2017-03-31 07:17] LABS: ANION GAP 8 MEQ/L (8-16); BLOOD UREA NITROGEN 29 MG/DL (7-18); CALCIUM LEVEL 8.6 MG/DL (8.8-10.2); CARBON DIOXIDE LEVEL 29 MEQ/L (21-32); CHLORIDE LEVEL 101 MEQ/L (98-107); CREATININE FOR GFR 4.55 MG/DL (0.70-1.30); GLUCOSE, FASTING 113 MG/DL (70-100); POTASSIUM SERUM 3.8 MEQ/L (3.5-5.1); SODIUM LEVEL 138 MEQ/L (136-145)
[2017-03-31] MEDS: HumaLOG INSULIN (NovoLOG) PER UNIT SC ×4 (08:20→21:00)
[2017-03-31] MEDS: HEPARIN 1,000 UNITS/ML 10ML VIAL (FOR RADIOLOGY& DIALYSIS ONLY) IV (11:15)
[2017-04-01] MEDS: HEPARIN SOD (PORCINE) 5000 UNITS/ML VIAL SC ×3 (06:00→21:19)
[2017-04-01] MEDS: CARVedilol 3.125 MG TAB PO ×2 (06:00→18:00)
[2017-04-01] MEDS: HumaLOG INSULIN (NovoLOG) PER UNIT SC ×4 (08:23→21:00)
[2017-04-01] MEDS: ATORVASTATIN 20 MG TAB PO (08:24)
[2017-04-01] MEDS: ACETAMINOPHEN TAB 650MG DOSE (2X325MG) PO (08:24)
[2017-04-01] MEDS: SERTRALINE HCL 25 MG TABLET PO (08:25)
[2017-04-01 18:14] LABS: BEDSIDE GLUCOSE 98 MG/DL (80-115)
[2017-04-01 18:14] LABS: BEDSIDE GLUCOSE 131 MG/DL (80-115)
[2017-04-01 18:14] LABS: BEDSIDE GLUCOSE 127 MG/DL (80-115)
[2017-04-01 18:14] LABS: BEDSIDE GLUCOSE 145 MG/DL (80-115)
[2017-04-01 18:14] LABS: BEDSIDE GLUCOSE 165 MG/DL (80-115)
[2017-04-01 18:14] LABS: BEDSIDE GLUCOSE 111 MG/DL (80-115)
[2017-04-01 18:14] LABS: BEDSIDE GLUCOSE 167 MG/DL (80-115)
[2017-04-01 18:14] LABS: BEDSIDE GLUCOSE 97 MG/DL (80-115)
[2017-04-01] MEDS: EUCERIN 120GM CREAM TOP (21:00)
[2017-04-01 21:01] LABS: BEDSIDE GLUCOSE 103 MG/DL (80-115)
[2017-04-01 21:01] LABS: BEDSIDE GLUCOSE 126 MG/DL (80-115)
[2017-04-01 21:01] LABS: BEDSIDE GLUCOSE 151 MG/DL (80-115)
[2017-04-01 21:01] LABS: BEDSIDE GLUCOSE 115 MG/DL (80-115)
[2017-04-02] MEDS: CARVedilol 3.125 MG TAB PO ×2 (05:59→18:01)
[2017-04-02] MEDS: HEPARIN SOD (PORCINE) 5000 UNITS/ML VIAL SC ×3 (06:00→21:25)
[2017-04-02] MEDS: HumaLOG INSULIN (NovoLOG) PER UNIT SC ×4 (07:30→20:52)
[2017-04-02] MEDS: ATORVASTATIN 20 MG TAB PO (08:19)
[2017-04-02] MEDS: SERTRALINE HCL 25 MG TABLET PO (08:19)
[2017-04-02] MEDS: EUCERIN 120GM CREAM TOP ×2 (08:19→20:53)
[2017-04-03 03:37] LABS: BEDSIDE GLUCOSE 219 MG/DL (80-115)
[2017-04-03 03:37] LABS: BEDSIDE GLUCOSE 149 MG/DL (80-115)
[2017-04-03 03:37] LABS: BEDSIDE GLUCOSE 111 MG/DL (80-115)
[2017-04-03 03:37] LABS: BEDSIDE GLUCOSE 87 MG/DL (80-115)
[2017-04-03] MEDS: ATORVASTATIN 20 MG TAB PO (06:11)
[2017-04-03] MEDS: EUCERIN 120GM CREAM TOP ×2 (06:11→20:44)
[2017-04-03] MEDS: CARVedilol 3.125 MG TAB PO ×2 (06:11→18:00)
[2017-04-03] MEDS: HEPARIN SOD (PORCINE) 5000 UNITS/ML VIAL SC ×3 (06:11→20:44)
[2017-04-03] MEDS: SERTRALINE HCL 25 MG TABLET PO (06:12)
[2017-04-03] MEDS: HumaLOG INSULIN (NovoLOG) PER UNIT SC ×4 (07:30→20:43)
[2017-04-03] MEDS: HEPARIN 1,000 UNITS/ML 10ML VIAL (FOR RADIOLOGY& DIALYSIS ONLY) IV (10:15)
[2017-04-03] MEDS: LOPERAMIDE 2 MG CAP PO (11:32)
[2017-04-04] MEDS: HEPARIN SOD (PORCINE) 5000 UNITS/ML VIAL SC ×3 (05:34→21:03)
[2017-04-04] MEDS: CARVedilol 3.125 MG TAB PO ×2 (05:34→17:52)
[2017-04-04] MEDS: ATORVASTATIN 20 MG TAB PO (10:22)
[2017-04-04] MEDS: SERTRALINE HCL 25 MG TABLET PO (10:23)
[2017-04-04] MEDS: EUCERIN 120GM CREAM TOP ×2 (10:24→21:00)
[2017-04-04] MEDS: HumaLOG INSULIN (NovoLOG) PER UNIT SC ×4 (10:27→21:00)
[2017-04-04 13:27] LABS: BEDSIDE GLUCOSE 105 MG/DL (80-115)
[2017-04-04 17:06] LABS: BEDSIDE GLUCOSE 117 MG/DL (80-115)
[2017-04-04 20:47] LABS: BEDSIDE GLUCOSE 103 MG/DL (80-115)
[2017-04-04 20:47] LABS: BEDSIDE GLUCOSE 110 MG/DL (80-115)
[2017-04-04 20:47] LABS: BEDSIDE GLUCOSE 145 MG/DL (80-115)
[2017-04-05] MEDS: HEPARIN SOD (PORCINE) 5000 UNITS/ML VIAL SC ×3 (05:00→21:26)
[2017-04-05] MEDS: CARVedilol 3.125 MG TAB PO ×2 (05:00→18:00)
[2017-04-05] MEDS: SERTRALINE HCL 25 MG TABLET PO (05:54)
[2017-04-05] MEDS: ATORVASTATIN 20 MG TAB PO (05:54)
[2017-04-05] MEDS: HumaLOG INSULIN (NovoLOG) PER UNIT SC ×4 (07:44→21:09)
[2017-04-05] MEDS: EUCERIN 120GM CREAM TOP ×2 (08:22→21:00)
[2017-04-05 10:08] LABS: BASO % 0.6 % (0.0-1.0); EOS # 0.3 10^3/uL (0.0-0.50); HEMATOCRIT 35.5 % (42.0-52.0); HEMOGLOBIN 11.2 g/dl (14.0-18.0); IMMATURE GRANULOCYTE % 0.4 % (0-3.0); LYMPH # 0.5 10^3/uL (1.5-4.5); LYMPH % 10.1 % (24.0-44.0); MEAN CORPUSCULAR HEMOGLOBIN 26.1 pg (27.0-33.0); MEAN CORPUSCULAR HGB CONC 31.5 g/dl (32.0-36.5); MEAN CORPUSCULAR VOLUME 82.8 fl (80.0-96.0); MONO # 0.7 10^3/uL (0.0-0.8); MONO % 13.6 % (0.0-5.0); NEUTROPHILS # 3.6 10^3/uL (1.8-7.7); NEUTROPHILS % 69.3 % (36.0-66.0); PLATELET COUNT, AUTOMATED 161 10^3/uL (150-450); RED BLOOD COUNT 4.29 10^6/uL (4.30-6.10); RED CELL DISTRIBUTION WIDTH 17.3 % (11.5-14.5); WHITE BLOOD COUNT 5.2 10^3/uL (4.0-10.0)
[2017-04-05 10:11] LABS: BEDSIDE GLUCOSE 162 MG/DL (80-115)
[2017-04-05 10:41] LABS: ALBUMIN 2.9 GM/DL (3.2-5.2); ANION GAP 9 MEQ/L (8-16); BLOOD UREA NITROGEN 29 MG/DL (7-18); CALCIUM LEVEL 8.5 MG/DL (8.8-10.2); CARBON DIOXIDE LEVEL 27 MEQ/L (21-32); CHLORIDE LEVEL 102 MEQ/L (98-107); GLOMERULAR FILTRATION RATE 13.5 (>49); GLUCOSE, FASTING 131 MG/DL (70-100); PHOSPHORUS LEVEL 3.4 MG/DL (2.5-4.9); POTASSIUM SERUM 3.8 MEQ/L (3.5-5.1); SODIUM LEVEL 138 MEQ/L (136-145)
[2017-04-05] MEDS: HEPARIN 1,000 UNITS/ML 10ML VIAL (FOR RADIOLOGY& DIALYSIS ONLY) IV (10:45)
[2017-04-05 13:06] LABS: BEDSIDE GLUCOSE 98 MG/DL (80-115)
[2017-04-05 18:27] LABS: BEDSIDE GLUCOSE 106 MG/DL (80-115)
[2017-04-06] MEDS: HEPARIN SOD (PORCINE) 5000 UNITS/ML VIAL SC ×3 (05:34→20:40)
[2017-04-06] MEDS: CARVedilol 3.125 MG TAB PO ×2 (05:34→18:28)
[2017-04-06] MEDS: HumaLOG INSULIN (NovoLOG) PER UNIT SC ×4 (08:57→21:00)
[2017-04-06] MEDS: EUCERIN 120GM CREAM TOP ×3 (09:00→20:41)
[2017-04-06] MEDS: SERTRALINE HCL 25 MG TABLET PO (09:59)
[2017-04-06] MEDS: ATORVASTATIN 20 MG TAB PO (09:59)
[2017-04-06 11:57] LABS: BEDSIDE GLUCOSE 110 MG/DL (80-115)
[2017-04-06 22:33] LABS: BEDSIDE GLUCOSE 102 MG/DL (80-115)
[2017-04-06 22:33] LABS: BEDSIDE GLUCOSE 127 MG/DL (80-115)
[2017-04-06 22:33] LABS: BEDSIDE GLUCOSE 128 MG/DL (80-115)
[2017-04-07] MEDS: HEPARIN SOD (PORCINE) 5000 UNITS/ML VIAL SC ×3 (06:16→21:13)
[2017-04-07] MEDS: CARVedilol 3.125 MG TAB PO ×2 (06:16→18:00)
[2017-04-07] MEDS: HumaLOG INSULIN (NovoLOG) PER UNIT SC ×4 (08:13→20:35)
[2017-04-07] MEDS: SERTRALINE HCL 25 MG TABLET PO (08:14)
[2017-04-07] MEDS: ATORVASTATIN 20 MG TAB PO (08:14)
[2017-04-07] MEDS: EUCERIN 120GM CREAM TOP ×2 (08:16→21:00)
[2017-04-07] MEDS: HEPARIN 1,000 UNITS/ML 10ML VIAL (FOR RADIOLOGY& DIALYSIS ONLY) IV (11:00)
[2017-04-07] MEDS: ACETAMINOPHEN TAB 650MG DOSE (2X325MG) PO (23:20)
[2017-04-08 03:12] LABS: BEDSIDE GLUCOSE 126 MG/DL (80-115)
[2017-04-08 03:12] LABS: BEDSIDE GLUCOSE 86 MG/DL (80-115)
[2017-04-08 03:12] LABS: BEDSIDE GLUCOSE 144 MG/DL (80-115)
[2017-04-08 03:12] LABS: BEDSIDE GLUCOSE 111 MG/DL (80-115)
[2017-04-08] MEDS: HEPARIN SOD (PORCINE) 5000 UNITS/ML VIAL SC ×2 (06:00→12:54)
[2017-04-08] MEDS: CARVedilol 3.125 MG TAB PO ×2 (06:00→17:16)
[2017-04-08] MEDS: HumaLOG INSULIN (NovoLOG) PER UNIT SC ×2 (07:30→12:53)
[2017-04-08] MEDS: LOPERAMIDE 2 MG CAP PO (09:16)
[2017-04-08] MEDS: EUCERIN 120GM CREAM TOP (09:16)
[2017-04-08] MEDS: ATORVASTATIN 20 MG TAB PO (09:16)
[2017-04-08] MEDS: SERTRALINE HCL 25 MG TABLET PO (09:16)
[2017-04-08 11:10] LABS: HEMATOCRIT 34.7 % (42.0-52.0); MEAN CORPUSCULAR HEMOGLOBIN 26.5 pg (27.0-33.0); MEAN CORPUSCULAR HGB CONC 31.7 g/dl (32.0-36.5); MEAN CORPUSCULAR VOLUME 83.6 fl (80.0-96.0); PLATELET COUNT, AUTOMATED 134 10^3/uL (150-450); RED BLOOD COUNT 4.15 10^6/uL (4.30-6.10); RED CELL DISTRIBUTION WIDTH 17.3 % (11.5-14.5); WHITE BLOOD COUNT 4.1 10^3/uL (4.0-10.0)
[2017-04-08 11:41] LABS: ANION GAP 9 MEQ/L (8-16); BLOOD UREA NITROGEN 24 MG/DL (7-18); CALCIUM LEVEL 8.5 MG/DL (8.8-10.2); CARBON DIOXIDE LEVEL 30 MEQ/L (21-32); CHLORIDE LEVEL 100 MEQ/L (98-107); GLOMERULAR FILTRATION RATE 15.8 (>49); GLUCOSE, FASTING 166 MG/DL (70-100); POTASSIUM SERUM 3.8 MEQ/L (3.5-5.1); SODIUM LEVEL 139 MEQ/L (136-145)
[2017-04-08 15:59] LABS: ESTIMATED AVERAGE GLUCOSE 140 MG/DL (60-110); HEMOGLOBIN A1c 6.5 %
[2017-04-08] MEDS ORDERED: EUCERIN 120GM CREAM TOP (21:00)
[2017-04-09] MEDS: CARVedilol 3.125 MG TAB PO ×2 (06:00→17:29)
[2017-04-09] MEDS: ATORVASTATIN 20 MG TAB PO (08:25)
[2017-04-09] MEDS: glipiZIDE *2.5MG* 1/2 TABLET PO (08:25)
[2017-04-09] MEDS: SERTRALINE HCL 25 MG TABLET PO (08:25)
[2017-04-09] MEDS: LOPERAMIDE 2 MG CAP PO (20:06)
[2017-04-09 21:15] LABS: BEDSIDE GLUCOSE 74 MG/DL (80-115)
[2017-04-10 02:39] LABS: BEDSIDE GLUCOSE 95 MG/DL (80-115)
[2017-04-10 02:39] LABS: BEDSIDE GLUCOSE 88 MG/DL (80-115)
[2017-04-10 02:39] LABS: BEDSIDE GLUCOSE 158 MG/DL (80-115)
[2017-04-10 02:39] LABS: BEDSIDE GLUCOSE 92 MG/DL (80-115)
[2017-04-10 02:39] LABS: BEDSIDE GLUCOSE 99 MG/DL (80-115)
[2017-04-10] MEDS: ATORVASTATIN 20 MG TAB PO (05:13)
[2017-04-10] MEDS: CARVedilol 3.125 MG TAB PO ×2 (05:13→17:25)
[2017-04-10] MEDS: glipiZIDE *2.5MG* 1/2 TABLET PO (05:13)
[2017-04-10] MEDS: SERTRALINE HCL 25 MG TABLET PO (05:13)
[2017-04-10] MEDS: HEPARIN 1,000 UNITS/ML 10ML VIAL (FOR RADIOLOGY& DIALYSIS ONLY) IV (11:30)
[2017-04-11] MEDS: CARVedilol 3.125 MG TAB PO ×2 (06:17→18:00)
[2017-04-11] MEDS: glipiZIDE *2.5MG* 1/2 TABLET PO (08:27)
[2017-04-11] MEDS: ATORVASTATIN 20 MG TAB PO (08:27)
[2017-04-11] MEDS: SERTRALINE HCL 25 MG TABLET PO (08:27)
[2017-04-12] MEDS: CARVedilol 3.125 MG TAB PO ×2 (04:23→17:55)
[2017-04-12 05:59] LABS: BEDSIDE GLUCOSE 68 MG/DL (80-115)
[2017-04-12 05:59] LABS: BEDSIDE GLUCOSE 93 MG/DL (80-115)
[2017-04-12 05:59] LABS: BEDSIDE GLUCOSE 135 MG/DL (80-115)
[2017-04-12 05:59] LABS: BEDSIDE GLUCOSE 82 MG/DL (80-115)
[2017-04-12] MEDS: ATORVASTATIN 20 MG TAB PO (07:31)
[2017-04-12] MEDS: SERTRALINE HCL 25 MG TABLET PO (07:31)
[2017-04-12] MEDS: glipiZIDE *2.5MG* 1/2 TABLET PO (07:31)
[2017-04-12] MEDS: HEPARIN 1,000 UNITS/ML 10ML VIAL (FOR RADIOLOGY& DIALYSIS ONLY) IV (12:56)
[2017-04-12 17:44] LABS: BEDSIDE GLUCOSE 98 MG/DL (80-115)
[2017-04-12 22:12] LABS: BEDSIDE GLUCOSE 67 MG/DL (80-115)
[2017-04-13] MEDS: CARVedilol 3.125 MG TAB PO ×2 (06:20→18:00)
[2017-04-13 07:13] LABS: HEMOGLOBIN 11.3 g/dl (14.0-18.0); MEAN CORPUSCULAR HEMOGLOBIN 25.7 pg (27.0-33.0); MEAN CORPUSCULAR HGB CONC 31.4 g/dl (32.0-36.5); MEAN CORPUSCULAR VOLUME 81.8 fl (80.0-96.0); PLATELET COUNT, AUTOMATED 156 10^3/uL (150-450); RED CELL DISTRIBUTION WIDTH 17.2 % (11.5-14.5); WHITE BLOOD COUNT 5.4 10^3/uL (4.0-10.0)
[2017-04-13 07:47] LABS: ANION GAP 7 MEQ/L (8-16); BLOOD UREA NITROGEN 23 MG/DL (7-18); CALCIUM LEVEL 8.6 MG/DL (8.8-10.2); CARBON DIOXIDE LEVEL 30 MEQ/L (21-32); CHLORIDE LEVEL 102 MEQ/L (98-107); CREATININE FOR GFR 3.92 MG/DL (0.70-1.30); GLOMERULAR FILTRATION RATE 16.6 (>49); GLUCOSE, FASTING 75 MG/DL (70-100); POTASSIUM SERUM 3.7 MEQ/L (3.5-5.1); SODIUM LEVEL 139 MEQ/L (136-145)
[2017-04-13] MEDS: glipiZIDE *2.5MG* 1/2 TABLET PO (08:10)
[2017-04-13] MEDS: SERTRALINE HCL 25 MG TABLET PO (08:10)
[2017-04-13] MEDS: ATORVASTATIN 20 MG TAB PO (08:10)
[2017-04-14 02:10] LABS: BEDSIDE GLUCOSE 178 MG/DL (80-115)
[2017-04-14 02:10] LABS: BEDSIDE GLUCOSE 80 MG/DL (80-115)
[2017-04-14] MEDS: CARVedilol 3.125 MG TAB PO ×2 (06:40→18:00)
[2017-04-14] MEDS: ATORVASTATIN 20 MG TAB PO (06:40)
[2017-04-14] MEDS: glipiZIDE *2.5MG* 1/2 TABLET PO (06:40)
[2017-04-14] MEDS: SERTRALINE HCL 25 MG TABLET PO (06:41)
[2017-04-14] MEDS: HEPARIN 1,000 UNITS/ML 10ML VIAL (FOR RADIOLOGY& DIALYSIS ONLY) IV (12:00)
[2017-04-14 20:44] LABS: BEDSIDE GLUCOSE 75 MG/DL (80-115)
[2017-04-14 20:45] LABS: BEDSIDE GLUCOSE 167 MG/DL (80-115)
[2017-04-15] MEDS: ACETAMINOPHEN TAB 650MG DOSE (2X325MG) PO (02:28)
[2017-04-15] MEDS: CARVedilol 3.125 MG TAB PO ×2 (06:31→18:00)
[2017-04-15] MEDS: SERTRALINE HCL 25 MG TABLET PO (08:49)
[2017-04-15] MEDS: glipiZIDE *2.5MG* 1/2 TABLET PO (08:49)
[2017-04-15] MEDS: ATORVASTATIN 20 MG TAB PO (08:49)
[2017-04-15] MEDS: ASPIRIN 81 MG ENTERIC TAB PO (09:00)
[2017-04-16 03:16] LABS: BEDSIDE GLUCOSE 80 MG/DL (80-115)
[2017-04-16 03:16] LABS: BEDSIDE GLUCOSE 107 MG/DL (80-115)
[2017-04-16] MEDS: CARVedilol 3.125 MG TAB PO ×2 (05:32→18:28)
[2017-04-16] MEDS: glipiZIDE *2.5MG* 1/2 TABLET PO (08:28)
[2017-04-16] MEDS: ATORVASTATIN 20 MG TAB PO (08:28)
[2017-04-16] MEDS: SERTRALINE HCL 25 MG TABLET PO (08:28)
[2017-04-16] MEDS: ASPIRIN 81 MG ENTERIC TAB PO (08:28)
[2017-04-17 06:07] LABS: HEMATOCRIT 35.8 % (42.0-52.0); HEMOGLOBIN 11.4 g/dl (14.0-18.0); MEAN CORPUSCULAR HEMOGLOBIN 26.2 pg (27.0-33.0); MEAN CORPUSCULAR HGB CONC 31.8 g/dl (32.0-36.5); MEAN CORPUSCULAR VOLUME 82.3 fl (80.0-96.0); PLATELET COUNT, AUTOMATED 178 10^3/uL (150-450); RED BLOOD COUNT 4.35 10^6/uL (4.30-6.10); RED CELL DISTRIBUTION WIDTH 17.3 % (11.5-14.5); WHITE BLOOD COUNT 6.3 10^3/uL (4.0-10.0)
[2017-04-17] MEDS: ATORVASTATIN 20 MG TAB PO (06:27)
[2017-04-17] MEDS: ASPIRIN 81 MG ENTERIC TAB PO (06:27)
[2017-04-17 06:28] LABS: ANION GAP 9 MEQ/L (8-16); BLOOD UREA NITROGEN 37 MG/DL (7-18); CALCIUM LEVEL 8.5 MG/DL (8.8-10.2); CARBON DIOXIDE LEVEL 26 MEQ/L (21-32); CHLORIDE LEVEL 102 MEQ/L (98-107); CREATININE FOR GFR 5.31 MG/DL (0.70-1.30); GLOMERULAR FILTRATION RATE 11.7 (>49); GLUCOSE, FASTING 91 MG/DL (70-100); MAGNESIUM LEVEL 1.9 MG/DL (1.8-2.4); POTASSIUM SERUM 3.9 MEQ/L (3.5-5.1); SODIUM LEVEL 137 MEQ/L (136-145)
[2017-04-17] MEDS: SERTRALINE HCL 25 MG TABLET PO (06:28)
[2017-04-17] MEDS: glipiZIDE *2.5MG* 1/2 TABLET PO (06:28)
[2017-04-17] MEDS: CARVedilol 3.125 MG TAB PO ×2 (06:28→18:00)
[2017-04-17] MEDS: HEPARIN 1,000 UNITS/ML 10ML VIAL (FOR RADIOLOGY& DIALYSIS ONLY) IV (11:15)
[2017-04-18] MEDS: CARVedilol 3.125 MG TAB PO ×2 (06:00→17:33)
[2017-04-18] MEDS: SERTRALINE HCL 25 MG TABLET PO (08:06)
[2017-04-18] MEDS: glipiZIDE *2.5MG* 1/2 TABLET PO (08:06)
[2017-04-18] MEDS: ASPIRIN 81 MG ENTERIC TAB PO (08:06)
[2017-04-18] MEDS: ATORVASTATIN 20 MG TAB PO (08:06)
[2017-04-19] MEDS: glipiZIDE *2.5MG* 1/2 TABLET PO (05:46)
[2017-04-19] MEDS: ATORVASTATIN 20 MG TAB PO (05:46)
[2017-04-19] MEDS: ASPIRIN 81 MG ENTERIC TAB PO (05:47)
[2017-04-19] MEDS: CARVedilol 3.125 MG TAB PO ×2 (05:47→18:00)
[2017-04-19] MEDS: SERTRALINE HCL 25 MG TABLET PO (05:47)
[2017-04-19 08:27] LABS: BEDSIDE GLUCOSE 94 MG/DL (80-115)
[2017-04-19 08:27] LABS: BEDSIDE GLUCOSE 73 MG/DL (80-115)
[2017-04-19 08:27] LABS: BEDSIDE GLUCOSE 84 MG/DL (80-115)
[2017-04-19 08:27] LABS: BEDSIDE GLUCOSE 94 MG/DL (80-115)
[2017-04-19 08:27] LABS: BEDSIDE GLUCOSE 160 MG/DL (80-115)
[2017-04-19 08:28] LABS: BEDSIDE GLUCOSE 77 MG/DL (80-115)
[2017-04-19] MEDS: HEPARIN 1,000 UNITS/ML 10ML VIAL (FOR RADIOLOGY& DIALYSIS ONLY) IV (11:15)
[2017-04-19 18:01] LABS: BEDSIDE GLUCOSE 95 MG/DL (80-115)
[2017-04-20] MEDS: CARVedilol 3.125 MG TAB PO ×2 (05:59→18:03)
[2017-04-20 07:06] LABS: HEMATOCRIT 34.9 % (42.0-52.0); HEMOGLOBIN 11.1 g/dl (14.0-18.0); MEAN CORPUSCULAR HEMOGLOBIN 26.2 pg (27.0-33.0); MEAN CORPUSCULAR HGB CONC 31.8 g/dl (32.0-36.5); MEAN CORPUSCULAR VOLUME 82.3 fl (80.0-96.0); PLATELET COUNT, AUTOMATED 197 10^3/uL (150-450); RED BLOOD COUNT 4.24 10^6/uL (4.30-6.10); RED CELL DISTRIBUTION WIDTH 17.8 % (11.5-14.5); WHITE BLOOD COUNT 7.8 10^3/uL (4.0-10.0)
[2017-04-20 07:18] LABS: ANION GAP 8 MEQ/L (8-16); BLOOD UREA NITROGEN 27 MG/DL (7-18); CALCIUM LEVEL 8.6 MG/DL (8.8-10.2); CARBON DIOXIDE LEVEL 29 MEQ/L (21-32); CHLORIDE LEVEL 102 MEQ/L (98-107); CREATININE FOR GFR 4.21 MG/DL (0.70-1.30); GLOMERULAR FILTRATION RATE 15.3 (>49); GLUCOSE, FASTING 89 MG/DL (70-100); POTASSIUM SERUM 3.9 MEQ/L (3.5-5.1); SODIUM LEVEL 139 MEQ/L (136-145)
[2017-04-20] MEDS: glipiZIDE *2.5MG* 1/2 TABLET PO (08:10)
[2017-04-20] MEDS: ASPIRIN 81 MG ENTERIC TAB PO (09:39)
[2017-04-20] MEDS: SERTRALINE HCL 25 MG TABLET PO (09:39)
[2017-04-20] MEDS: ATORVASTATIN 20 MG TAB PO (09:39)
[2017-04-20 17:45] LABS: BEDSIDE GLUCOSE 95 MG/DL (80-115)
[2017-04-20 21:36] LABS: BEDSIDE GLUCOSE 101 MG/DL (80-115)
[2017-04-21] MEDS: ASPIRIN 81 MG ENTERIC TAB PO (06:10)
[2017-04-21] MEDS: ATORVASTATIN 20 MG TAB PO (06:10)
[2017-04-21] MEDS: glipiZIDE *2.5MG* 1/2 TABLET PO (06:10)
[2017-04-21] MEDS: SERTRALINE HCL 25 MG TABLET PO (06:10)
[2017-04-21] MEDS: CARVedilol 3.125 MG TAB PO ×2 (06:10→18:00)
[2017-04-21 06:18] LABS: BEDSIDE GLUCOSE 68 MG/DL (80-115)
[2017-04-21] MEDS: HEPARIN 1,000 UNITS/ML 10ML VIAL (FOR RADIOLOGY& DIALYSIS ONLY) IV (11:00)
[2017-04-21 20:08] LABS: BEDSIDE GLUCOSE 110 MG/DL (80-115)
[2017-04-22] MEDS: LOPERAMIDE 2 MG CAP PO (04:29)
[2017-04-22] MEDS: CARVedilol 3.125 MG TAB PO ×2 (05:24→17:35)
[2017-04-22 06:41] LABS: BEDSIDE GLUCOSE 101 MG/DL (80-115)
[2017-04-22 06:43] LABS: PHOSPHORUS LEVEL 3.2 MG/DL (2.5-4.9)
[2017-04-22] MEDS: glipiZIDE *2.5MG* 1/2 TABLET PO (08:10)
[2017-04-22] MEDS: SERTRALINE HCL 25 MG TABLET PO (08:10)
[2017-04-22] MEDS: ASPIRIN 81 MG ENTERIC TAB PO (08:10)
[2017-04-22] MEDS: ATORVASTATIN 20 MG TAB PO (08:10)
[2017-04-23] MEDS: CARVedilol 3.125 MG TAB PO ×2 (05:55→17:05)
[2017-04-23] MEDS: ASPIRIN 81 MG ENTERIC TAB PO (08:06)
[2017-04-23] MEDS: ATORVASTATIN 20 MG TAB PO (08:07)
[2017-04-23] MEDS: glipiZIDE *2.5MG* 1/2 TABLET PO (08:07)
[2017-04-23] MEDS: SERTRALINE HCL 25 MG TABLET PO (08:07)
[2017-04-24 02:31] LABS: BEDSIDE GLUCOSE 72 MG/DL (80-115)
[2017-04-24] MEDS: CARVedilol 3.125 MG TAB PO ×2 (05:29→18:16)
[2017-04-24] MEDS: ATORVASTATIN 20 MG TAB PO (05:29)
[2017-04-24] MEDS: SERTRALINE HCL 25 MG TABLET PO (05:29)
[2017-04-24] MEDS: ASPIRIN 81 MG ENTERIC TAB PO (05:29)
[2017-04-24 07:54] LABS: BEDSIDE GLUCOSE 89 MG/DL (80-115)
[2017-04-24] MEDS: glipiZIDE *2.5MG* 1/2 TABLET PO (08:05)
[2017-04-24 10:07] LABS: ALBUMIN 2.7 GM/DL (3.2-5.2); ANION GAP 10 MEQ/L (8-16); BLOOD UREA NITROGEN 43 MG/DL (7-18); CALCIUM LEVEL 8.4 MG/DL (8.8-10.2); CARBON DIOXIDE LEVEL 25 MEQ/L (21-32); CHLORIDE LEVEL 102 MEQ/L (98-107); CREATININE FOR GFR 5.33 MG/DL (0.70-1.30); GLOMERULAR FILTRATION RATE 11.6 (>49); GLUCOSE, FASTING 97 MG/DL (70-100); MAGNESIUM LEVEL 1.8 MG/DL (1.8-2.4); PHOSPHORUS LEVEL 4.7 MG/DL (2.5-4.9); POTASSIUM SERUM 4.1 MEQ/L (3.5-5.1); SODIUM LEVEL 137 MEQ/L (136-145)
[2017-04-24] MEDS: HEPARIN 1,000 UNITS/ML 10ML VIAL (FOR RADIOLOGY& DIALYSIS ONLY) IV (10:30)
[2017-04-24 11:39] LABS: HEMATOCRIT 32.3 % (42.0-52.0); HEMOGLOBIN 10.3 g/dl (14.0-18.0); MEAN CORPUSCULAR HEMOGLOBIN 25.9 pg (27.0-33.0); MEAN CORPUSCULAR HGB CONC 31.9 g/dl (32.0-36.5); MEAN CORPUSCULAR VOLUME 81.4 fl (80.0-96.0); PLATELET COUNT, AUTOMATED 154 10^3/uL (150-450); RED BLOOD COUNT 3.97 10^6/uL (4.30-6.10); RED CELL DISTRIBUTION WIDTH 17.8 % (11.5-14.5); WHITE BLOOD COUNT 6.1 10^3/uL (4.0-10.0)
[2017-04-24 12:11] LABS: PTH INTACT 146.7 PG/ML (18.5-88.0)
[2017-04-24 12:56] LABS: FERRITIN 314 NG/ML (26-388); IRON (FE) 36 UG/DL (65-175); PERCENT SATURATION 14.5 % (19.7-50.0); TOTAL IRON BINDING CAPACITY 249 UG/DL (250-450)
[2017-04-25] MEDS: CARVedilol 3.125 MG TAB PO ×2 (05:41→17:57)
[2017-04-25] MEDS: glipiZIDE *2.5MG* 1/2 TABLET PO (09:29)
[2017-04-25] MEDS: ASPIRIN 81 MG ENTERIC TAB PO (09:29)
[2017-04-25] MEDS: LOPERAMIDE 2 MG CAP PO (09:30)
[2017-04-25] MEDS: SERTRALINE HCL 25 MG TABLET PO (09:30)
[2017-04-25] MEDS: ATORVASTATIN 20 MG TAB PO (09:30)
[2017-04-26] MEDS: glipiZIDE *2.5MG* 1/2 TABLET PO (05:47)
[2017-04-26] MEDS: CARVedilol 3.125 MG TAB PO ×2 (05:48→18:00)
[2017-04-26] MEDS: ASPIRIN 81 MG ENTERIC TAB PO (05:48)
[2017-04-26] MEDS: SERTRALINE HCL 25 MG TABLET PO (05:48)
[2017-04-26] MEDS: ATORVASTATIN 20 MG TAB PO (05:48)
[2017-04-27] MEDS: CARVedilol 3.125 MG TAB PO ×2 (06:00→18:29)
[2017-04-27] MEDS: ATORVASTATIN 20 MG TAB PO (06:06)
[2017-04-27] MEDS: ASPIRIN 81 MG ENTERIC TAB PO (06:07)
[2017-04-27] MEDS: SERTRALINE HCL 25 MG TABLET PO (06:07)
[2017-04-27] MEDS: glipiZIDE *2.5MG* 1/2 TABLET PO (08:11)
[2017-04-27 08:50] LABS: HEMATOCRIT 31.2 % (42.0-52.0); MEAN CORPUSCULAR HEMOGLOBIN 26.2 pg (27.0-33.0); MEAN CORPUSCULAR HGB CONC 32.1 g/dl (32.0-36.5); MEAN CORPUSCULAR VOLUME 81.9 fl (80.0-96.0); PLATELET COUNT, AUTOMATED 160 10^3/uL (150-450); RED BLOOD COUNT 3.81 10^6/uL (4.30-6.10); RED CELL DISTRIBUTION WIDTH 17.8 % (11.5-14.5); WHITE BLOOD COUNT 5.9 10^3/uL (4.0-10.0)
[2017-04-27 09:19] LABS: ANION GAP 11 MEQ/L (8-16); BLOOD UREA NITROGEN 48 MG/DL (7-18); CARBON DIOXIDE LEVEL 24 MEQ/L (21-32); CHLORIDE LEVEL 103 MEQ/L (98-107); CREATININE FOR GFR 5.28 MG/DL (0.70-1.30); GLOMERULAR FILTRATION RATE 11.8 (>49); GLUCOSE, FASTING 129 MG/DL (70-100); MAGNESIUM LEVEL 1.8 MG/DL (1.8-2.4); POTASSIUM SERUM 4.1 MEQ/L (3.5-5.1); SODIUM LEVEL 138 MEQ/L (136-145)
[2017-04-27] MEDS: HEPARIN 1,000 UNITS/ML 10ML VIAL (FOR RADIOLOGY& DIALYSIS ONLY) IV (12:50)
[2017-04-28] MEDS: CARVedilol 3.125 MG TAB PO (06:24)
[2017-04-28] MEDS: glipiZIDE *2.5MG* 1/2 TABLET PO (08:15)
[2017-04-28] MEDS: SERTRALINE HCL 25 MG TABLET PO (08:16)
[2017-04-28] MEDS: ATORVASTATIN 20 MG TAB PO (08:16)
[2017-04-28] MEDS: ASPIRIN 81 MG ENTERIC TAB PO (08:16)
[2017-04-28 12:13] LABS: BEDSIDE GLUCOSE 101 MG/DL (80-115)
[2017-04-28 12:13] LABS: BEDSIDE GLUCOSE 110 MG/DL (80-115)
[2017-04-28 12:13] LABS: BEDSIDE GLUCOSE 110 MG/DL (80-115)
[2017-04-28 12:14] LABS: BEDSIDE GLUCOSE 87 MG/DL (80-115)
[2017-04-28 12:15] LABS: BEDSIDE GLUCOSE 90 MG/DL (80-115)
[2017-04-28 12:15] LABS: BEDSIDE GLUCOSE 212 MG/DL (80-115)
[2017-04-28 12:15] LABS: BEDSIDE GLUCOSE 91 MG/DL (80-115)
[2017-04-28 12:16] LABS: BEDSIDE GLUCOSE 156 MG/DL (80-115)
[2017-04-28 12:16] LABS: BEDSIDE GLUCOSE 86 MG/DL (80-115)
[2017-04-28 12:18] LABS: HEPATITIS B SURFACE ANTIGEN NEGATIVE (NEGATIVE)
[2017-04-28 12:20] LABS: HEPATITIS B SURFACE ANTIBODY POSITIVE (POSITIVE)
[2017-04-28 12:34] LABS: HEPATITIS C VIRUS ABY INDEX 0.2 INDEX (<0.8)
[2017-04-28 12:40] LABS: HEPATITIS B CORE ANTIBODY IGM NEGATIVE (NEGATIVE)
[2017-04-29 08:09] LABS: HEPATITIS B CORE ANTIBODY IGG Negative (Negative)
== END 2017-04-28 14:20 | DRG 570 ==
LOC: M MS5PR 02-24 04:02 → M MS4PR 12:45
PROC: 5A1D70Z Performance of Urinary Filtration, Intermittent, Less than 6 Hours Per Day (ICD-10-PCS; 2017-02-17)
PROC: 0HDRXZZ Extraction of Toe Nail, External Approach (ICD-10-PCS; 2017-02-17)
PROC: 0JBR0ZZ Excision of Left Foot Subcutaneous Tissue and Fascia, Open Approach (ICD-10-PCS; principal; 2017-02-18)
DX: L03.115 Cellulitis of right lower limb (principal); N18.6 End stage renal disease; I50.23 Acute on chronic systolic (congestive) heart failure; E43 Unspecified severe protein-calorie malnutrition; I13.2 Hypertensive heart and chronic kidney disease with heart failure and with stage 5 chronic kidney disease, or end stage renal disease; I69.354 Hemiplegia and hemiparesis following cerebral infarction affecting left non-dominant side; L97.528 Non-pressure chronic ulcer of other part of left foot with other specified severity; N25.81 Secondary hyperparathyroidism of renal origin; L03.116 Cellulitis of left lower limb; E11.621 Type 2 diabetes mellitus with foot ulcer; E11.22 Type 2 diabetes mellitus with diabetic chronic kidney disease; R19.7 Diarrhea, unspecified; F41.9 Anxiety disorder, unspecified; D63.1 Anemia in chronic kidney disease; B95.62 Methicillin resistant Staphylococcus aureus infection as the cause of diseases classified elsewhere; F32.9 Major depressive disorder, single episode, unspecified; K21.9 Gastro-esophageal reflux disease without esophagitis; E66.01 Morbid (severe) obesity due to excess calories; Z91.012 Allergy to eggs; E78.5 Hyperlipidemia, unspecified; D69.6 Thrombocytopenia, unspecified; I27.20 Pulmonary hypertension, unspecified; I25.10 Atherosclerotic heart disease of native coronary artery without angina pectoris; Z99.2 Dependence on renal dialysis; Z95.810 Presence of automatic (implantable) cardiac defibrillator; Z91.15 Patient's noncompliance with renal dialysis; R53.1 Weakness; Z79.4 Long term (current) use of insulin; Z79.899 Other long term (current) drug therapy

== ENCOUNTER 2017-05-09 17:10 | Inpatient (IN) | payer MEDICARE, MEDICAID ==
[2017-05-09] MEDS: CARVedilol 6.25 MG TAB PO (00:30)
[2017-05-09] MEDS: NS 1,000 ML IV ×2 (00:50→17:57)
[2017-05-09 18:18] LABS: ALBUMIN 3.1 GM/DL (3.2-5.2); ALBUMIN/GLOBULIN RATIO 0.82 (1.00-1.93); ALKALINE PHOSPHATASE 106 U/L (45-117); ALT/SGPT 15 U/L (12-78); ANION GAP 5 MEQ/L (8-16); AST/SGOT 19 U/L (7-37); BASO # 0.1 10^3/uL (0.0-0.2); BASO % 0.9 % (0.0-1.0); BILIRUBIN,DIRECT 0.6 MG/DL (0.0-0.2); BLOOD UREA NITROGEN 29 MG/DL (7-18); CALCIUM LEVEL 8.6 MG/DL (8.8-10.2); CARBON DIOXIDE LEVEL 30 MEQ/L (21-32); CHLORIDE LEVEL 104 MEQ/L (98-107); CREATININE FOR GFR 4.46 MG/DL (0.70-1.30); EOS # 0.3 10^3/uL (0.0-0.50); EOS % 5.2 % (0.0-3.0); GLOMERULAR FILTRATION RATE 14.3 (>49); GLUCOSE, FASTING 66 MG/DL (70-100); HEMATOCRIT 34.6 % (42.0-52.0); HEMOGLOBIN 10.7 g/dl (14.0-18.0); IMMATURE GRANULOCYTE % 0.4 % (0-3.0); LIPASE 183 U/L (73-393); LYMPH # 0.8 10^3/uL (1.5-4.5); LYMPH % 13.4 % (24.0-44.0); MEAN CORPUSCULAR HEMOGLOBIN 26.2 pg (27.0-33.0); MEAN CORPUSCULAR HGB CONC 30.9 g/dl (32.0-36.5); MEAN CORPUSCULAR VOLUME 84.6 fl (80.0-96.0); MONO # 0.8 10^3/uL (0.0-0.8); MONO % 13.4 % (0.0-5.0); NEUTROPHILS # 3.7 10^3/uL (1.8-7.7); NEUTROPHILS % 66.7 % (36.0-66.0); PLATELET COUNT, AUTOMATED 147 10^3/uL (150-450); POTASSIUM SERUM 4.5 MEQ/L (3.5-5.1); RED BLOOD COUNT 4.09 10^6/uL (4.30-6.10); RED CELL DISTRIBUTION WIDTH 18.7 % (11.5-14.5); SODIUM LEVEL 139 MEQ/L (136-145); TOTAL PROTEIN 6.9 GM/DL (6.4-8.2); WHITE BLOOD COUNT 5.6 10^3/uL (4.0-10.0)
[2017-05-09] MEDS: ONDANSETRON 4MG/2ML VIAL (J2405) IV (18:19)
[2017-05-09] MEDS: PANTOPRAZOLE 40MG INJ (PROTONIX) (C9113) IV (18:19)
[2017-05-09 18:29] LABS: INR 1.23; PROTHROMBIN TIME 15.8 SECONDS (12.4-14.5)
[2017-05-09] MEDS ORDERED: MOM 30ML SUSPENSION UDC PO (21:45)
[2017-05-09] MEDS ORDERED: FLEET ENEMA PR (21:45)
[2017-05-09] MEDS ORDERED: BISACODYL 10 MG SUPP PR (21:45)
[2017-05-09] MEDS ORDERED: GLUCOSE 4 GM CHEW TABLET PO (22:00)
[2017-05-09] MEDS ORDERED: GLUCAGON FOR INJ 1 MG VIAL (J1610) SC (22:00)
[2017-05-09 23:20] LABS: BEDSIDE GLUCOSE 58 MG/DL (80-115)
[2017-05-09] MEDS: DEXTROSE 50% 50 ML SYRINGE IV (23:27)
[2017-05-09] MEDS: HumaLOG INSULIN (NovoLOG) PER UNIT SC (23:52)
[2017-05-10] MEDS: CARVedilol 6.25 MG TAB PO ×3 (00:30→21:00)
[2017-05-10] MEDS: ATORVASTATIN 20 MG TAB PO ×2 (00:30→22:38)
[2017-05-10] MEDS: HumaLOG INSULIN (NovoLOG) PER UNIT SC ×4 (07:30→21:00)
[2017-05-10] MEDS: MULTIVITAMINS/MINERALS THERAP 1 TAB PO (10:40)
[2017-05-10 11:42] LABS: BEDSIDE GLUCOSE 105 MG/DL (80-115)
[2017-05-10] MEDS: SERTRALINE HCL 25 MG TABLET PO (16:57)
[2017-05-10 17:09] LABS: APPEARANCE, BODY FLUID HAZY (CLEAR); ASCITES FL COLOR COLORLESS (COLORLESS); SOURCE, BODY FLUID ASCITES
[2017-05-10 17:10] LABS: SPEC. GRAVITY BODY FLUIDS 1.022 (NOT ESTABLISHED)
[2017-05-10 17:24] LABS: BF MONONUCLEAR CELL % 93.1 % (0-0); BF POLYMORPHONUCLEAR CELL % 6.9 % (0-0); RBC BODY FLUID < 2 10^3/uL (<2); WBC BODY FLUID 321 /uL (0-10)
[2017-05-10 17:25] LABS: BF DIFF IF INDICATED? YES (NO)
[2017-05-10 17:40] LABS: SOURCE, BODY FLUID ALBUMIN ASCITES; SOURCE, BODY FLUID GLUCOSE ASCITES; SOURCE, BODY FLUID TOT PROTEIN ASCITES; TOTAL PROTEIN, BODY FLUID 3.5 G/DL (NOT ESTABLISHED)
[2017-05-10 21:01] LABS: BEDSIDE GLUCOSE 106 MG/DL (80-115)
[2017-05-10 21:01] LABS: BEDSIDE GLUCOSE 79 MG/DL (80-115)
[2017-05-10] MEDS: HEPARIN SOD (PORCINE) 5000 UNITS/ML VIAL SQ (22:00)
[2017-05-11] MEDS: HumaLOG INSULIN (NovoLOG) PER UNIT SC ×4 (07:30→21:00)
[2017-05-11 07:57] LABS: BEDSIDE GLUCOSE 91 MG/DL (80-115)
[2017-05-11] MEDS: MULTIVITAMINS/MINERALS THERAP 1 TAB PO (08:04)
[2017-05-11 08:54] LABS: HEMATOCRIT 33.6 % (42.0-52.0); HEMOGLOBIN 10.5 g/dl (14.0-18.0); MEAN CORPUSCULAR HEMOGLOBIN 25.8 pg (27.0-33.0); MEAN CORPUSCULAR HGB CONC 31.3 g/dl (32.0-36.5); MEAN CORPUSCULAR VOLUME 82.6 fl (80.0-96.0); PLATELET COUNT, AUTOMATED 134 10^3/uL (150-450); RED BLOOD COUNT 4.07 10^6/uL (4.30-6.10); RED CELL DISTRIBUTION WIDTH 18.8 % (11.5-14.5); WHITE BLOOD COUNT 4.7 10^3/uL (4.0-10.0)
[2017-05-11 08:57] LABS: POS COUNT POS FLAG
[2017-05-11 09:15] LABS: ANION GAP 6 MEQ/L (8-16); BLOOD UREA NITROGEN 22 MG/DL (7-18); CALCIUM LEVEL 8.1 MG/DL (8.8-10.2); CARBON DIOXIDE LEVEL 29 MEQ/L (21-32); CHLORIDE LEVEL 105 MEQ/L (98-107); CREATININE FOR GFR 4.11 MG/DL (0.70-1.30); GLOMERULAR FILTRATION RATE 15.7 (>49); GLUCOSE, FASTING 118 MG/DL (70-100); POTASSIUM SERUM 4.2 MEQ/L (3.5-5.1); SODIUM LEVEL 140 MEQ/L (136-145)
[2017-05-11 11:59] LABS: BEDSIDE GLUCOSE 136 MG/DL (80-115)
[2017-05-11] MEDS: CARVedilol 6.25 MG TAB PO ×2 (12:48→21:00)
[2017-05-11] MEDS: SERTRALINE HCL 25 MG TABLET PO (12:52)
[2017-05-11] MEDS: HEPARIN SOD (PORCINE) 5000 UNITS/ML VIAL SQ ×3 (15:13→21:41)
[2017-05-11 20:16] LABS: BEDSIDE GLUCOSE 168 MG/DL (80-115)
[2017-05-11] MEDS: ATORVASTATIN 20 MG TAB PO (21:41)
[2017-05-12] MEDS: HEPARIN SOD (PORCINE) 5000 UNITS/ML VIAL SQ ×3 (05:00→20:20)
[2017-05-12] MEDS: HumaLOG INSULIN (NovoLOG) PER UNIT SC ×4 (07:30→22:07)
[2017-05-12] MEDS: MULTIVITAMINS/MINERALS THERAP 1 TAB PO (09:00)
[2017-05-12] MEDS: CARVedilol 6.25 MG TAB PO ×2 (12:00→20:20)
[2017-05-12] MEDS: HEPARIN 1,000 UNITS/ML 10ML VIAL (FOR RADIOLOGY& DIALYSIS ONLY) IV (14:00)
[2017-05-12] MEDS: SERTRALINE HCL 25 MG TABLET PO (17:09)
[2017-05-12 17:28] LABS: BEDSIDE GLUCOSE 135 MG/DL (80-115)
[2017-05-12 18:32] LABS: HEMATOCRIT 33.8 % (42.0-52.0); HEMOGLOBIN 10.5 g/dl (14.0-18.0); MEAN CORPUSCULAR HEMOGLOBIN 26.2 pg (27.0-33.0); MEAN CORPUSCULAR HGB CONC 31.1 g/dl (32.0-36.5); MEAN CORPUSCULAR VOLUME 84.3 fl (80.0-96.0); PLATELET COUNT, AUTOMATED 122 10^3/uL (150-450); RED BLOOD COUNT 4.01 10^6/uL (4.30-6.10); RED CELL DISTRIBUTION WIDTH 18.9 % (11.5-14.5); WHITE BLOOD COUNT 4.9 10^3/uL (4.0-10.0)
[2017-05-12 18:51] LABS: ANION GAP 5 MEQ/L (8-16); BLOOD UREA NITROGEN 18 MG/DL (7-18); CALCIUM LEVEL 8.5 MG/DL (8.8-10.2); CARBON DIOXIDE LEVEL 33 MEQ/L (21-32); CHLORIDE LEVEL 103 MEQ/L (98-107); CREATININE FOR GFR 3.37 MG/DL (0.70-1.30); GLOMERULAR FILTRATION RATE 19.8 (>49); GLUCOSE, FASTING 129 MG/DL (70-100); POTASSIUM SERUM 3.9 MEQ/L (3.5-5.1); SODIUM LEVEL 141 MEQ/L (136-145)
[2017-05-12] MEDS: ATORVASTATIN 20 MG TAB PO (20:20)
[2017-05-12] MEDS: LOPERAMIDE 2 MG CAP PO (20:20)
[2017-05-13] MEDS: HEPARIN SOD (PORCINE) 5000 UNITS/ML VIAL SQ ×3 (05:40→22:00)
[2017-05-13 05:59] LABS: HEMATOCRIT 32.8 % (42.0-52.0); HEMOGLOBIN 10.2 g/dl (14.0-18.0); MEAN CORPUSCULAR HGB CONC 31.1 g/dl (32.0-36.5); MEAN CORPUSCULAR VOLUME 83.7 fl (80.0-96.0); PLATELET COUNT, AUTOMATED 135 10^3/uL (150-450); RED BLOOD COUNT 3.92 10^6/uL (4.30-6.10); RED CELL DISTRIBUTION WIDTH 19.2 % (11.5-14.5); WHITE BLOOD COUNT 5.3 10^3/uL (4.0-10.0)
[2017-05-13 06:21] LABS: ANION GAP 5 MEQ/L (8-16); BLOOD UREA NITROGEN 23 MG/DL (7-18); CALCIUM LEVEL 8.2 MG/DL (8.8-10.2); CARBON DIOXIDE LEVEL 31 MEQ/L (21-32); CHLORIDE LEVEL 105 MEQ/L (98-107); CREATININE FOR GFR 3.94 MG/DL (0.70-1.30); GLOMERULAR FILTRATION RATE 16.5 (>49); GLUCOSE, FASTING 100 MG/DL (70-100); POTASSIUM SERUM 4.2 MEQ/L (3.5-5.1); SODIUM LEVEL 141 MEQ/L (136-145)
[2017-05-13] MEDS: HumaLOG INSULIN (NovoLOG) PER UNIT SC ×4 (07:30→22:08)
[2017-05-13] MEDS: MULTIVITAMINS/MINERALS THERAP 1 TAB PO (08:49)
[2017-05-13] MEDS: CARVedilol 6.25 MG TAB PO ×2 (12:00→20:46)
[2017-05-13] MEDS: SERTRALINE HCL 25 MG TABLET PO (13:04)
[2017-05-13] MEDS: ATORVASTATIN 20 MG TAB PO (20:46)
[2017-05-14 03:18] LABS: BEDSIDE GLUCOSE 93 MG/DL (80-115)
[2017-05-14 03:18] LABS: BEDSIDE GLUCOSE 126 MG/DL (80-115)
[2017-05-14 03:18] LABS: BEDSIDE GLUCOSE 154 MG/DL (80-115)
[2017-05-14 03:18] LABS: BEDSIDE GLUCOSE 145 MG/DL (80-115)
[2017-05-14] MEDS: HEPARIN SOD (PORCINE) 5000 UNITS/ML VIAL SQ ×3 (04:53→21:11)
[2017-05-14 05:56] LABS: HEMATOCRIT 33.1 % (42.0-52.0); HEMOGLOBIN 10.3 g/dl (14.0-18.0); MEAN CORPUSCULAR HGB CONC 31.1 g/dl (32.0-36.5); MEAN CORPUSCULAR VOLUME 83.6 fl (80.0-96.0); PLATELET COUNT, AUTOMATED 128 10^3/uL (150-450); RED BLOOD COUNT 3.96 10^6/uL (4.30-6.10); WHITE BLOOD COUNT 5.4 10^3/uL (4.0-10.0)
[2017-05-14 06:12] LABS: ANION GAP 6 MEQ/L (8-16); BLOOD UREA NITROGEN 33 MG/DL (7-18); CALCIUM LEVEL 8.3 MG/DL (8.8-10.2); CARBON DIOXIDE LEVEL 28 MEQ/L (21-32); CHLORIDE LEVEL 106 MEQ/L (98-107); CREATININE FOR GFR 4.73 MG/DL (0.70-1.30); GLOMERULAR FILTRATION RATE 13.4 (>49); GLUCOSE, FASTING 88 MG/DL (70-100); POTASSIUM SERUM 4.1 MEQ/L (3.5-5.1); SODIUM LEVEL 140 MEQ/L (136-145)
[2017-05-14] MEDS: HumaLOG INSULIN (NovoLOG) PER UNIT SC ×4 (07:30→21:45)
[2017-05-14] MEDS: MULTIVITAMINS/MINERALS THERAP 1 TAB PO (07:58)
[2017-05-14] MEDS: SERTRALINE HCL 25 MG TABLET PO (11:47)
[2017-05-14] MEDS: ACETAMINOPHEN TAB 650MG DOSE (2X325MG) PO (11:47)
[2017-05-14] MEDS: LISINOPRIL *2.5 MG* TAB PO (12:52)
[2017-05-14] MEDS: CARVedilol 3.125 MG TAB PO (18:06)
[2017-05-14 21:26] LABS: BEDSIDE GLUCOSE 192 MG/DL (80-115)
[2017-05-14 21:27] LABS: BEDSIDE GLUCOSE 123 MG/DL (80-115)
[2017-05-14] MEDS: ATORVASTATIN 20 MG TAB PO (21:43)
[2017-05-14 21:44] LABS: BEDSIDE GLUCOSE 95 MG/DL (80-115)
[2017-05-15] MEDS: HEPARIN SOD (PORCINE) 5000 UNITS/ML VIAL SQ ×3 (06:25→22:00)
[2017-05-15] MEDS: CARVedilol 3.125 MG TAB PO ×2 (06:25→18:00)
[2017-05-15] MEDS: MULTIVITAMINS/MINERALS THERAP 1 TAB PO (06:25)
[2017-05-15] MEDS: LISINOPRIL *2.5 MG* TAB PO (06:25)
[2017-05-15 07:18] LABS: BEDSIDE GLUCOSE 85 MG/DL (80-115)
[2017-05-15] MEDS: HumaLOG INSULIN (NovoLOG) PER UNIT SC ×4 (07:30→20:16)
[2017-05-15] MEDS: HEPARIN 1,000 UNITS/ML 10ML VIAL (FOR RADIOLOGY& DIALYSIS ONLY) IV (11:00)
[2017-05-15] MEDS: SERTRALINE HCL 25 MG TABLET PO (11:59)
[2017-05-15 13:37] LABS: HEMATOCRIT 30.5 % (42.0-52.0); HEMOGLOBIN 9.5 g/dl (14.0-18.0); MEAN CORPUSCULAR HEMOGLOBIN 25.7 pg (27.0-33.0); MEAN CORPUSCULAR HGB CONC 31.1 g/dl (32.0-36.5); MEAN CORPUSCULAR VOLUME 82.7 fl (80.0-96.0); PLATELET COUNT, AUTOMATED 127 10^3/uL (150-450); RED BLOOD COUNT 3.69 10^6/uL (4.30-6.10); RED CELL DISTRIBUTION WIDTH 18.9 % (11.5-14.5); WHITE BLOOD COUNT 4.7 10^3/uL (4.0-10.0)
[2017-05-15 13:57] LABS: ANION GAP 7 MEQ/L (8-16); BLOOD UREA NITROGEN 37 MG/DL (7-18); CALCIUM LEVEL 8.3 MG/DL (8.8-10.2); CARBON DIOXIDE LEVEL 27 MEQ/L (21-32); CHLORIDE LEVEL 105 MEQ/L (98-107); CREATININE FOR GFR 4.85 MG/DL (0.70-1.30); GLUCOSE, FASTING 134 MG/DL (70-100); SODIUM LEVEL 139 MEQ/L (136-145)
[2017-05-15] MEDS: ATORVASTATIN 20 MG TAB PO (20:43)
[2017-05-16 00:01] LABS: BEDSIDE GLUCOSE 138 MG/DL (80-115)
[2017-05-16 00:01] LABS: BEDSIDE GLUCOSE 113 MG/DL (80-115)
[2017-05-16 00:01] LABS: BEDSIDE GLUCOSE 130 MG/DL (80-115)
[2017-05-16] MEDS: CARVedilol 3.125 MG TAB PO ×2 (05:54→18:00)
[2017-05-16] MEDS: HEPARIN SOD (PORCINE) 5000 UNITS/ML VIAL SQ ×3 (06:00→21:57)
[2017-05-16 06:37] LABS: HEMOGLOBIN 10.2 g/dl (14.0-18.0); MEAN CORPUSCULAR HEMOGLOBIN 25.8 pg (27.0-33.0); MEAN CORPUSCULAR HGB CONC 30.9 g/dl (32.0-36.5); MEAN CORPUSCULAR VOLUME 83.5 fl (80.0-96.0); PLATELET COUNT, AUTOMATED 121 10^3/uL (150-450); RED BLOOD COUNT 3.95 10^6/uL (4.30-6.10); RED CELL DISTRIBUTION WIDTH 18.8 % (11.5-14.5); WHITE BLOOD COUNT 5.4 10^3/uL (4.0-10.0)
[2017-05-16 06:57] LABS: ANION GAP 6 MEQ/L (8-16); BLOOD UREA NITROGEN 30 MG/DL (7-18); CALCIUM LEVEL 8.5 MG/DL (8.8-10.2); CARBON DIOXIDE LEVEL 29 MEQ/L (21-32); CHLORIDE LEVEL 104 MEQ/L (98-107); CREATININE FOR GFR 4.23 MG/DL (0.70-1.30); GLOMERULAR FILTRATION RATE 15.2 (>49); GLUCOSE, FASTING 98 MG/DL (70-100); SODIUM LEVEL 139 MEQ/L (136-145)
[2017-05-16] MEDS: HumaLOG INSULIN (NovoLOG) PER UNIT SC ×4 (07:30→21:00)
[2017-05-16] MEDS: LISINOPRIL *2.5 MG* TAB PO (08:46)
[2017-05-16] MEDS: MULTIVITAMINS/MINERALS THERAP 1 TAB PO (08:46)
[2017-05-16] MEDS: SERTRALINE HCL 25 MG TABLET PO (11:49)
[2017-05-16] MEDS: ATORVASTATIN 20 MG TAB PO (21:13)
[2017-05-17] MEDS: CARVedilol 3.125 MG TAB PO (05:24)
[2017-05-17] MEDS: HEPARIN SOD (PORCINE) 5000 UNITS/ML VIAL SQ ×2 (06:00→13:04)
[2017-05-17] MEDS: HumaLOG INSULIN (NovoLOG) PER UNIT SC ×2 (07:21→12:00)
[2017-05-17] MEDS: MULTIVITAMINS/MINERALS THERAP 1 TAB PO (08:03)
[2017-05-17] MEDS: LISINOPRIL *2.5 MG* TAB PO (08:03)
[2017-05-17 11:29] LABS: BEDSIDE GLUCOSE 94 MG/DL (80-115)
[2017-05-17 11:29] LABS: BEDSIDE GLUCOSE 149 MG/DL (80-115)
[2017-05-17 11:29] LABS: BEDSIDE GLUCOSE 121 MG/DL (80-115)
[2017-05-17 11:29] LABS: BEDSIDE GLUCOSE 135 MG/DL (80-115)
[2017-05-17] MEDS: SERTRALINE HCL 25 MG TABLET PO (12:19)
[2017-05-17 12:53] LABS: HEMATOCRIT 33.5 % (42.0-52.0); HEMOGLOBIN 10.7 g/dl (14.0-18.0); MEAN CORPUSCULAR HEMOGLOBIN 26.6 pg (27.0-33.0); MEAN CORPUSCULAR HGB CONC 31.9 g/dl (32.0-36.5); MEAN CORPUSCULAR VOLUME 83.3 fl (80.0-96.0); PLATELET COUNT, AUTOMATED 133 10^3/uL (150-450); RED BLOOD COUNT 4.02 10^6/uL (4.30-6.10); WHITE BLOOD COUNT 5.5 10^3/uL (4.0-10.0)
[2017-05-17 13:14] LABS: ANION GAP 5 MEQ/L (8-16); BLOOD UREA NITROGEN 41 MG/DL (7-18); CALCIUM LEVEL 8.6 MG/DL (8.8-10.2); CARBON DIOXIDE LEVEL 26 MEQ/L (21-32); CHLORIDE LEVEL 106 MEQ/L (98-107); CREATININE FOR GFR 5.53 MG/DL (0.70-1.30); GLOMERULAR FILTRATION RATE 11.2 (>49); GLUCOSE, FASTING 125 MG/DL (70-100); POTASSIUM SERUM 4.3 MEQ/L (3.5-5.1); SODIUM LEVEL 137 MEQ/L (136-145)
[2017-05-19 22:00] LABS: BEDSIDE GLUCOSE 140 MG/DL (80-115)
== END 2017-05-17 13:55 | DRG 291 ==
LOC: M MS5PR 23:45 → M ED 17:10 → M ED INP 20:53
PROC: 5A1D70Z Performance of Urinary Filtration, Intermittent, Less than 6 Hours Per Day (ICD-10-PCS; principal; 2017-05-10)
PROC: 0W9G3ZZ Drainage of Peritoneal Cavity, Percutaneous Approach (ICD-10-PCS; 2017-05-10)
PROC: 0W9G3ZZ Drainage of Peritoneal Cavity, Percutaneous Approach (ICD-10-PCS; 2017-05-16)
DX: I13.2 Hypertensive heart and chronic kidney disease with heart failure and with stage 5 chronic kidney disease, or end stage renal disease (principal); N18.6 End stage renal disease; E43 Unspecified severe protein-calorie malnutrition; R18.8 Other ascites; I50.22 Chronic systolic (congestive) heart failure; D63.1 Anemia in chronic kidney disease; K21.9 Gastro-esophageal reflux disease without esophagitis; E78.5 Hyperlipidemia, unspecified; I25.5 Ischemic cardiomyopathy; E11.22 Type 2 diabetes mellitus with diabetic chronic kidney disease; E66.01 Morbid (severe) obesity due to excess calories; I25.10 Atherosclerotic heart disease of native coronary artery without angina pectoris; Z86.73 Personal history of transient ischemic attack (TIA), and cerebral infarction without residual deficits; Z95.810 Presence of automatic (implantable) cardiac defibrillator; Z95.1 Presence of aortocoronary bypass graft; Z79.4 Long term (current) use of insulin; Z79.82 Long term (current) use of aspirin; Z79.899 Other long term (current) drug therapy; Z91.012 Allergy to eggs; Z99.2 Dependence on renal dialysis; Z68.35 Body mass index [BMI] 35.0-35.9, adult

== ENCOUNTER → 2017-06-09 | Outpatient (REF) | payer MEDICARE | LOC: SKLAB7 14:15 | DX: R19.7 Diarrhea, unspecified (principal) | CPT/HCPCS: 87507 ==

== ENCOUNTER → 2017-06-26 | Outpatient (REF) | LOC: SKLAB7 14:14 | DX: Z86.14 Personal history of Methicillin resistant Staphylococcus aureus infection (principal) ==

== ENCOUNTER → 2017-07-05 | Outpatient (REF) ==
[2017-07-05 13:22] LABS: INR 1.18; PROTHROMBIN TIME 15.2 SECONDS (12.4-14.5)
== END ==
LOC: SKLAB7 11:06
DX: I48.91 Unspecified atrial fibrillation (principal)

== ENCOUNTER → 2017-07-06 | Outpatient (REF) ==
[2017-07-06 08:52] LABS: INR 1.29; PROTHROMBIN TIME 16.3 SECONDS (12.4-14.5)
[2017-07-06 10:10] LABS: CHOLESTEROL LEVEL 76 MG/DL (<200); CHOLESTEROL RISK RATIO 2.451 (<5); HDL CHOLESTEROL 31 MG/DL (>40); LDL CHOLESTEROL 25.8 MG/DL (<100); NON-HDL-C 45 MG/DL; TRIGLYCERIDES LEVEL 96 MG/DL (<150)
== END ==
LOC: SKLAB7 06:57
DX: I48.91 Unspecified atrial fibrillation (principal)

== ENCOUNTER → 2017-07-07 | Outpatient (REF) | payer MEDICARE, MEDICAID ==
[2017-07-07 13:17] LABS: INR 1.76; PROTHROMBIN TIME 21.1 SECONDS (12.4-14.5)
== END ==
LOC: SKLAB7 08:42
DX: Z79.01 Long term (current) use of anticoagulants (principal); I48.91 Unspecified atrial fibrillation
CPT/HCPCS: 85610

== ENCOUNTER → 2017-07-09 | Outpatient (REF) | payer MEDICARE, MEDICAID ==
[2017-07-09 07:39] LABS: INR 3.23; PROTHROMBIN TIME 34.5 SECONDS (12.4-14.5)
== END ==
LOC: SKLAB7 01:26
DX: I48.91 Unspecified atrial fibrillation (principal)
CPT/HCPCS: 85610

== ENCOUNTER → 2017-07-11 | Outpatient (REF) ==
[2017-07-11 08:22] LABS: INR 2.22; PROTHROMBIN TIME 25.4 SECONDS (12.4-14.5)
== END ==
LOC: SKLAB7 07:00
DX: Z79.01 Long term (current) use of anticoagulants (principal); I48.91 Unspecified atrial fibrillation

== ENCOUNTER → 2017-07-13 | Outpatient (REF) ==
[2017-07-13 09:17] LABS: INR 2.23; PROTHROMBIN TIME 25.5 SECONDS (12.4-14.5)
== END ==
LOC: SKLAB7 14:08
DX: I48.91 Unspecified atrial fibrillation (principal)

== ENCOUNTER → 2017-08-01 | Outpatient (REF) | payer MEDICARE, MEDICAID ==
[2017-08-01 13:27] LABS: INR 2.61
== END ==
LOC: SKLAB7 12:13
DX: I48.91 Unspecified atrial fibrillation (principal)
CPT/HCPCS: 85610

== ENCOUNTER → 2017-08-03 | Outpatient (REF) | payer MEDICARE, MEDICAID ==
[2017-08-03 08:04] LABS: HEMATOCRIT 38.6 % (42.0-52.0); HEMOGLOBIN 12.3 g/dl (13.5-17.5); MEAN CORPUSCULAR HEMOGLOBIN 28.9 pg (27.0-33.0); MEAN CORPUSCULAR HGB CONC 31.9 g/dl (32.0-36.5); MEAN CORPUSCULAR VOLUME 90.8 fl (80.0-96.0); PLATELET COUNT, AUTOMATED 154 10^3/uL (150-450); RED BLOOD COUNT 4.25 10^6/uL (4.30-6.10); RED CELL DISTRIBUTION WIDTH 19.3 % (11.5-14.5); WHITE BLOOD COUNT 7.7 10^3/uL (4.0-10.0)
[2017-08-03 08:27] LABS: INR 2.14; PROTHROMBIN TIME 24.7 SECONDS (12.4-14.5)
== END ==
LOC: SKLAB7 07:00
DX: D64.9 Anemia, unspecified (principal); Z79.01 Long term (current) use of anticoagulants
CPT/HCPCS: 36415

== ENCOUNTER → 2017-08-04 | Outpatient (REF) | payer MEDICARE, MEDICAID ==
[2017-08-04 05:48] LABS: INR 1.87; PROTHROMBIN TIME 22.1 SECONDS (12.4-14.5)
== END ==
LOC: SKLAB7 07:00
DX: I48.91 Unspecified atrial fibrillation (principal)
CPT/HCPCS: 36415

== ENCOUNTER → 2017-08-04 | Outpatient (CLI) | payer MEDICARE, MEDICAID | LOC: M RADPRO 11:58 | DX: R18.8 Other ascites (principal); N18.6 End stage renal disease; Z99.2 Dependence on renal dialysis; E11.9 Type 2 diabetes mellitus without complications; E64.9 Sequelae of unspecified nutritional deficiency; M12.9 Arthropathy, unspecified; M54.9 Dorsalgia, unspecified; Z79.899 Other long term (current) drug therapy; Z91.012 Allergy to eggs | CPT/HCPCS: 49083 ==

== ENCOUNTER → 2017-08-07 | Outpatient (REF) | payer MEDICARE, MEDICAID | LOC: SKLAB7 15:23 | DX: I50.9 Heart failure, unspecified (principal); R06.2 Wheezing | CPT/HCPCS: 71045 ==

== ENCOUNTER → 2017-08-09 | Outpatient (CLI) | payer MEDICARE, MEDICAID ==
[2017-08-09 20:09] LABS: BASO # 0.1 10^3/uL (0.0-0.2); BASO % 0.6 % (0.0-1.0); EOS # 0.1 10^3/uL (0.0-0.50); EOS % 0.9 % (0.0-3.0); HEMATOCRIT 36.9 % (42.0-52.0); HEMOGLOBIN 12.1 g/dl (13.5-17.5); IMMATURE GRANULOCYTE % 0.6 % (0-3.0); LYMPH # 0.8 10^3/uL (1.5-4.5); LYMPH % 7.4 % (24.0-44.0); MEAN CORPUSCULAR HEMOGLOBIN 29.4 pg (27.0-33.0); MEAN CORPUSCULAR HGB CONC 32.8 g/dl (32.0-36.5); MEAN CORPUSCULAR VOLUME 89.6 fl (80.0-96.0); MONO # 1.1 10^3/uL (0.0-0.8); MONO % 10.2 % (0.0-5.0); NEUTROPHILS # 8.5 10^3/uL (1.8-7.7); NEUTROPHILS % 80.3 % (36.0-66.0); PLATELET COUNT, AUTOMATED 154 10^3/uL (150-450); RED BLOOD COUNT 4.12 10^6/uL (4.30-6.10); RED CELL DISTRIBUTION WIDTH 17.5 % (11.5-14.5); WHITE BLOOD COUNT 10.5 10^3/uL (4.0-10.0)
== END ==
LOC: M LAB 19:30
DX: R06.02 Shortness of breath (principal); R50.9 Fever, unspecified
CPT/HCPCS: 71046

== ENCOUNTER → 2017-08-17 | Outpatient (REF) | payer MEDICARE, MEDICAID ==
[2017-08-17 08:10] LABS: INR 1.29; PROTHROMBIN TIME 16.3 SECONDS (12.1-14.4)
== END ==
LOC: SKLAB7 08:52
DX: I48.91 Unspecified atrial fibrillation (principal)
CPT/HCPCS: 36415

== ENCOUNTER → 2017-08-24 | Outpatient (REF) | payer MEDICARE, MEDICAID ==
[2017-08-24 09:16] LABS: INR 1.15; PROTHROMBIN TIME 14.9 SECONDS (12.1-14.4)
== END ==
LOC: SKLAB7 07:00
DX: I48.91 Unspecified atrial fibrillation (principal)
CPT/HCPCS: 36415

== ENCOUNTER → 2017-09-07 | Outpatient (REF) | payer MEDICARE, MEDICAID ==
[2017-09-07 09:11] LABS: INR 1.38; PROTHROMBIN TIME 17.2 SECONDS (12.1-14.4)
== END ==
LOC: SKLAB7 08:00
DX: Z79.01 Long term (current) use of anticoagulants (principal); I48.91 Unspecified atrial fibrillation
CPT/HCPCS: 36415

== ENCOUNTER → 2017-09-14 | Outpatient (REF) | payer MEDICARE, MEDICAID ==
[2017-09-14 08:44] LABS: INR 2.21
== END ==
LOC: SKLAB7 14:12
DX: Z79.01 Long term (current) use of anticoagulants (principal)
CPT/HCPCS: 85610

== ENCOUNTER → 2017-09-19 | Outpatient (REF) | payer MEDICARE, MEDICAID ==
[2017-09-19 07:25] LABS: ANION GAP 8 MEQ/L (8-16); BLOOD UREA NITROGEN 19 MG/DL (7-18); CALCIUM LEVEL 8.5 MG/DL (8.8-10.2); CARBON DIOXIDE LEVEL 31 MEQ/L (21-32); CHLORIDE LEVEL 101 MEQ/L (98-107); CREATININE FOR GFR 4.02 MG/DL (0.70-1.30); GLOMERULAR FILTRATION RATE 16.1 (>49); GLUCOSE, FASTING 94 MG/DL (70-100); POTASSIUM SERUM 3.2 MEQ/L (3.5-5.1); SODIUM LEVEL 140 MEQ/L (136-145)
== END ==
LOC: SKLAB7 08:07
DX: I50.9 Heart failure, unspecified (principal); E11.9 Type 2 diabetes mellitus without complications
CPT/HCPCS: 80048

== ENCOUNTER → 2017-09-21 | Outpatient (REF) | payer MEDICARE, MEDICAID ==
[2017-09-21 08:18] LABS: INR 3.23; PROTHROMBIN TIME 33.8 SECONDS (12.1-14.4)
== END ==
LOC: SKLAB7 08:00
DX: I48.91 Unspecified atrial fibrillation (principal)
CPT/HCPCS: 36415

== ENCOUNTER → 2017-09-28 | Outpatient (REF) | payer MEDICARE, MEDICAID ==
[2017-09-28 09:38] LABS: INR 2.53; PROTHROMBIN TIME 27.8 SECONDS (12.1-14.4)
== END ==
LOC: SKLAB7 07:00
DX: I48.91 Unspecified atrial fibrillation (principal)
CPT/HCPCS: 36415

== ENCOUNTER → 2017-10-05 | Outpatient (REF) | payer MEDICARE, MEDICAID ==
[2017-10-05 09:34] LABS: INR 1.95; PROTHROMBIN TIME 22.6 SECONDS (12.1-14.4)
== END ==
LOC: SKLAB7 08:00
DX: I48.91 Unspecified atrial fibrillation (principal)
CPT/HCPCS: 36415

== ENCOUNTER → 2017-10-12 | Outpatient (REF) | payer MEDICARE, MEDICAID ==
[2017-10-12 09:43] LABS: INR 1.76; PROTHROMBIN TIME 20.8 SECONDS (12.1-14.4)
== END ==
LOC: SKLAB7 08:00
DX: I48.91 Unspecified atrial fibrillation (principal)
CPT/HCPCS: 36415

== ENCOUNTER → 2017-10-19 | Outpatient (REF) | payer MEDICARE, MEDICAID ==
[2017-10-19 09:27] LABS: INR 1.99
== END ==
LOC: SKLAB3 12:49
DX: I48.91 Unspecified atrial fibrillation (principal)
CPT/HCPCS: 36415

== ENCOUNTER → 2017-10-26 | Outpatient (REF) | payer MEDICARE, MEDICAID ==
[2017-10-26 08:37] LABS: INR 2.15; PROTHROMBIN TIME 24.4 SECONDS (12.1-14.4)
== END ==
LOC: SKLAB7 08:52
DX: I48.91 Unspecified atrial fibrillation (principal)
CPT/HCPCS: 36415

== ENCOUNTER → 2017-11-02 | Outpatient (REF) | payer MEDICARE, MEDICAID ==
[2017-11-02 10:57] LABS: INR 2.22; PROTHROMBIN TIME 25.1 SECONDS (12.1-14.4)
== END ==
LOC: SKLAB7 07:00
DX: I48.91 Unspecified atrial fibrillation (principal)
CPT/HCPCS: 36415

== ENCOUNTER → 2017-11-09 | Outpatient (REF) | payer MEDICARE, MEDICAID ==
[2017-11-09 09:48] LABS: INR 2.47; PROTHROMBIN TIME 27.3 SECONDS (12.1-14.4)
== END ==
LOC: SKLAB7 12:47
DX: I48.91 Unspecified atrial fibrillation (principal)
CPT/HCPCS: 36415

== ENCOUNTER 2017-11-12 07:00 | Emergency (ER) | payer MEDICARE, MEDICAID ==
[2017-11-12 07:56] LABS: BASO # 0.1 10^3/uL (0.0-0.2); BASO % 0.9 % (0.0-1.0); EOS # 0.3 10^3/uL (0.0-0.50); HEMATOCRIT 37.5 % (42.0-52.0); IMMATURE GRANULOCYTE % 0.7 % (0-3.0); LYMPH # 0.8 10^3/uL (1.5-4.5); LYMPH % 11.5 % (24.0-44.0); MEAN CORPUSCULAR HEMOGLOBIN 29.6 pg (27.0-33.0); MEAN CORPUSCULAR VOLUME 92.6 fl (80.0-96.0); MONO # 0.9 10^3/uL (0.0-0.8); MONO % 12.8 % (0.0-5.0); NEUTROPHILS # 4.9 10^3/uL (1.8-7.7); NEUTROPHILS % 70.1 % (36.0-66.0); PLATELET COUNT, AUTOMATED 163 10^3/uL (150-450); RED BLOOD COUNT 4.05 10^6/uL (4.30-6.10); RED CELL DISTRIBUTION WIDTH 17.1 % (11.5-14.5); VENOUS BASE EXCESS 0.4 (-2.0-2.0); VENOUS HCO3 25.1 MEQ/L (23.0-27.0); VENOUS O2 SATURATION 90.1 % (60.0-80.0); VENOUS PARTIAL PRESSURE CO2 40.9 mmHg (38.0-50.0); VENOUS PARTIAL PRESSURE O2 59.2 mmHg (30.0-50.0); VENOUS PH 7.406 UNITS (7.330-7.430); VENOUS STANDARD HCO3 24.7 MEQ/L; VENOUS TOTAL CO2 26.4 MEQ/L (24.0-28.0); WHITE BLOOD COUNT 6.9 10^3/uL (4.0-10.0)
[2017-11-12 08:13] LABS: PROTHROMBIN TIME 30.1 SECONDS (12.1-14.4)
[2017-11-12 08:17] LABS: LACTIC ACID SEPSIS PROTOCOL 1.5 MMOL/L (0.4-2.0)
[2017-11-12 08:36] LABS: ALBUMIN 3.2 GM/DL (3.2-5.2); ALBUMIN/GLOBULIN RATIO 0.89 (1.00-1.93); ALKALINE PHOSPHATASE 101 U/L (45-117); ALT/SGPT 12 U/L (12-78); ANION GAP 10 MEQ/L (8-16); AST/SGOT 11 U/L (7-37); BILIRUBIN,DIRECT 0.8 MG/DL (0.0-0.2); BILIRUBIN,TOTAL 1.4 MG/DL (0.2-1.0); BLOOD UREA NITROGEN 24 MG/DL (7-18); CALCIUM LEVEL 8.8 MG/DL (8.8-10.2); CARBON DIOXIDE LEVEL 29 MEQ/L (21-32); CHLORIDE LEVEL 100 MEQ/L (98-107); CPK CREATINE PHOSPHOKINASE 43 U/L (39-308); CREATININE FOR GFR 4.63 MG/DL (0.70-1.30); GLOMERULAR FILTRATION RATE 13.7 (>49); GLUCOSE, FASTING 98 MG/DL (70-100); MAGNESIUM LEVEL 2.2 MG/DL (1.8-2.4); MB/CK RELATIVE INDEX 7.21 (< OR =4); NT-PRO BNP 148205 PG/ML (<125); PHOSPHORUS LEVEL 3.4 MG/DL (2.5-4.9); POTASSIUM SERUM 3.3 MEQ/L (3.5-5.1); SODIUM LEVEL 139 MEQ/L (136-145); TOTAL PROTEIN 6.8 GM/DL (6.4-8.2); TROPONIN I 0.04 NG/ML (< 0.10)
[2017-11-12 08:45] LABS: INFLUENZA A AMPLIFICATION NEGATIVE (NEGATIVE); INFLUENZA B AMPLIFICATION NEGATIVE (NEGATIVE)
[2017-11-12] MEDS: FUROSEMIDE 40 MG/4 ML VIAL (J1940) IV (10:29)
== END 2017-11-12 12:49 | disposition home or self-care (01) ==
LOC: M ED 07:00
DX: I50.42 Chronic combined systolic (congestive) and diastolic (congestive) heart failure (principal); N18.6 End stage renal disease; I13.2 Hypertensive heart and chronic kidney disease with heart failure and with stage 5 chronic kidney disease, or end stage renal disease; I25.10 Atherosclerotic heart disease of native coronary artery without angina pectoris; I48.91 Unspecified atrial fibrillation; E78.5 Hyperlipidemia, unspecified; D63.1 Anemia in chronic kidney disease; Z99.2 Dependence on renal dialysis; Z95.1 Presence of aortocoronary bypass graft; Z95.810 Presence of automatic (implantable) cardiac defibrillator; Z91.012 Allergy to eggs; Z79.899 Other long term (current) drug therapy; Z79.01 Long term (current) use of anticoagulants; Z79.82 Long term (current) use of aspirin
CPT/HCPCS: J1940

== ENCOUNTER → 2017-11-14 | Outpatient (REF) | payer MEDICARE, MEDICAID ==
[2017-11-14 07:52] LABS: ANION GAP 10 MEQ/L (8-16); BLOOD UREA NITROGEN 25 MG/DL (7-18); CALCIUM LEVEL 8.7 MG/DL (8.8-10.2); CARBON DIOXIDE LEVEL 28 MEQ/L (21-32); CHLORIDE LEVEL 102 MEQ/L (98-107); CREATININE FOR GFR 4.14 MG/DL (0.70-1.30); GLOMERULAR FILTRATION RATE 15.5 (>49); GLUCOSE, FASTING 103 MG/DL (70-100); POTASSIUM SERUM 3.2 MEQ/L (3.5-5.1); SODIUM LEVEL 140 MEQ/L (136-145)
== END ==
LOC: SKLAB7 07:00
DX: I50.9 Heart failure, unspecified (principal)
CPT/HCPCS: 80048

== ENCOUNTER → 2017-11-16 | Outpatient (REF) | payer MEDICARE, MEDICAID ==
[2017-11-16 09:19] LABS: INR 1.82; PROTHROMBIN TIME 21.4 SECONDS (12.1-14.4)
== END ==
LOC: SKLAB7 07:00
DX: I48.91 Unspecified atrial fibrillation (principal)
CPT/HCPCS: 36415

== ENCOUNTER → 2017-11-23 | Outpatient (REF) | payer MEDICARE, MEDICAID ==
[2017-11-23 09:32] LABS: INR 2.35; PROTHROMBIN TIME 26.2 SECONDS (12.1-14.4)
== END ==
LOC: SKLAB7 08:00
DX: I48.91 Unspecified atrial fibrillation (principal)
CPT/HCPCS: 36415

== ENCOUNTER → 2017-11-30 | Outpatient (REF) | payer MEDICARE, MEDICAID ==
[2017-11-30 09:38] LABS: INR 2.93; PROTHROMBIN TIME 31.2 SECONDS (12.1-14.4)
== END ==
LOC: SKLAB7 07:00
DX: I48.91 Unspecified atrial fibrillation (principal)
CPT/HCPCS: 85610

== ENCOUNTER → 2017-12-07 | Outpatient (REF) | payer MEDICARE, MEDICAID ==
[2017-12-07 09:00] LABS: INR 3.09; PROTHROMBIN TIME 32.6 SECONDS (12.1-14.4)
== END ==
LOC: SKLAB7 14:39
DX: I48.91 Unspecified atrial fibrillation (principal)
CPT/HCPCS: 85610

== ENCOUNTER → 2017-12-14 | Outpatient (REF) | payer MEDICARE, MEDICAID ==
[2017-12-14 10:07] LABS: INR 2.58; PROTHROMBIN TIME 28.2 SECONDS (12.1-14.4)
== END ==
LOC: SKLAB7 09:52
DX: I48.91 Unspecified atrial fibrillation (principal)
CPT/HCPCS: 85610

== ENCOUNTER → 2017-12-17 | Outpatient (REF) | payer MEDICARE, MEDICAID ==
[2017-12-17 07:57] LABS: INR 1.76; PROTHROMBIN TIME 20.8 SECONDS (12.1-14.4)
== END ==
LOC: SKLAB7 07:00
DX: I48.91 Unspecified atrial fibrillation (principal)
CPT/HCPCS: 85610

== ENCOUNTER → 2017-12-19 | Outpatient (CLI) | payer MEDICARE, MEDICAID | LOC: M RADPRO 12:10 | DX: R18.8 Other ascites (principal); I50.20 Unspecified systolic (congestive) heart failure; Z91.012 Allergy to eggs; Z79.899 Other long term (current) drug therapy | CPT/HCPCS: 49083 ==

== ENCOUNTER → 2017-12-28 | Outpatient (REF) | payer MEDICARE, MEDICAID ==
[2017-12-28 09:16] LABS: INR 2.58; PROTHROMBIN TIME 28.2 SECONDS (12.1-14.4)
== END ==
LOC: SKLAB7 07:00
DX: I48.91 Unspecified atrial fibrillation (principal)
CPT/HCPCS: 85610

== ENCOUNTER → 2018-01-04 | Outpatient (REF) | payer MEDICARE, MEDICAID ==
[2018-01-04 09:44] LABS: INR 2.14; PROTHROMBIN TIME 24.3 SECONDS (12.1-14.4)
[2018-01-04 12:59] LABS: ESTIMATED AVERAGE GLUCOSE 120 MG/DL (60-110); HEMOGLOBIN A1c 5.8 %
== END ==
LOC: SKLAB7 14:14
DX: I48.91 Unspecified atrial fibrillation (principal); Z79.899 Other long term (current) drug therapy
CPT/HCPCS: 83036

== ENCOUNTER → 2018-01-10 | Outpatient (REF) | payer MEDICARE, MEDICAID ==
[2018-01-10 08:13] LABS: INR 2.58; PROTHROMBIN TIME 28.2 SECONDS (12.1-14.4)
== END ==
LOC: SKLAB7 07:00
DX: Z51.81 Encounter for therapeutic drug level monitoring (principal); Z79.01 Long term (current) use of anticoagulants
CPT/HCPCS: 85610

== ENCOUNTER → 2018-01-18 | Outpatient (REF) | payer MEDICARE, MEDICAID ==
[2018-01-18 08:05] LABS: INR 2.52; PROTHROMBIN TIME 27.7 SECONDS (12.1-14.4)
== END ==
LOC: SKLAB7 08:00
DX: I48.91 Unspecified atrial fibrillation (principal); Z79.01 Long term (current) use of anticoagulants
CPT/HCPCS: 85610

== ENCOUNTER → 2018-01-25 | Outpatient (REF) | payer MEDICARE, MEDICAID ==
[2018-01-25 08:14] LABS: INR 4.08; PROTHROMBIN TIME 40.6 SECONDS (12.1-14.4)
== END ==
LOC: SKLAB7 08:00
DX: I48.91 Unspecified atrial fibrillation (principal); Z79.01 Long term (current) use of anticoagulants
CPT/HCPCS: 85610

== ENCOUNTER → 2018-01-26 | Outpatient (REF) | payer MEDICARE, MEDICAID ==
[2018-01-26 05:56] LABS: INR 4.41; PROTHROMBIN TIME 43.2 SECONDS (12.1-14.4)
== END ==
LOC: SKLAB7 08:00
DX: I48.91 Unspecified atrial fibrillation (principal); Z79.01 Long term (current) use of anticoagulants
CPT/HCPCS: 85610

== ENCOUNTER → 2018-01-27 | Outpatient (REF) | payer MEDICARE, MEDICAID ==
[2018-01-27 07:44] LABS: INR 3.04; PROTHROMBIN TIME 32.2 SECONDS (12.1-14.4)
[2018-01-27 07:52] LABS: ALBUMIN 2.6 GM/DL (3.2-5.2); ALBUMIN/GLOBULIN RATIO 0.68 (1.00-1.93); ALKALINE PHOSPHATASE 95 U/L (45-117); ALT/SGPT 16 U/L (12-78); AST/SGOT 13 U/L (7-37); BILIRUBIN,DIRECT 0.7 MG/DL (0.0-0.2); BILIRUBIN,TOTAL 1.2 MG/DL (0.2-1.0); TOTAL PROTEIN 6.4 GM/DL (6.4-8.2)
== END ==
LOC: SKLAB7 08:00
DX: R18.8 Other ascites (principal); Z79.01 Long term (current) use of anticoagulants
CPT/HCPCS: 80076

== ENCOUNTER → 2018-02-26 | Outpatient (REF) | payer MEDICARE, MEDICAID ==
[~2018-02-26] MED LIST changes: +ALDA25TA2 PO; +ASPI1TAB15 PO; +ASPI81TAEC PO; +ATOR1TAB21 PO; +BENZ-18 PO; -BENZ100C5 PO; -BUME1TA PO; +BUME1TAB PO; +CARV6.25 PO; +DULC10SU2 PR; +ENEMENE16 PR; +GLIP5TAB8 PO; +LASI40TA PO; +LISI2.5T5 PO; +LOSA50TA73 PO; +MILKSUS5 PO; +MULT1TAB10 PO; -PANT40TA2 PO; +PANT40TA3 PO; +SERT25TA88 PO; +SPIR-10 PO; -SPIR25TA2 PO; +TYLE325T5 PO; -VITA1CAP40 PO; +VITA50005 PO; +VITMTA PO
[2018-02-26 11:44] LABS: INR 1.36
== END ==
LOC: SKLAB7 14:06
PROVIDERS: ATTEND Internal Medicine
DX: Z79.01 Long term (current) use of anticoagulants (principal)

== ENCOUNTER → 2018-04-10 | Outpatient (REF) | payer MEDICARE, MEDICAID ==
[~2018-04-10] MED LIST changes: +ALBU83IN INH; +ATOR1TAB19 PO; -BUME1TAB PO; +BUME1TAB3 PO; +DRIS50003 PO; +ELIQ2.5T PO; -ENEMENE16 PR; +ENEMENE4 PR; -LASI40TA PO; +LASI40TA9 PO; +LOPE2CAP PO; -LOSA50TA73 PO; +LOSA50TA88 PO; +METO1TAB7 PO; +NEPHTAB PO; +QUES4POW PO; +TORS10TA3 PO; +TUSSLIQ3 PO
[2018-04-11 13:02] LABS: INFLUENZA A AMPLIFICATION NEGATIVE (NEGATIVE); INFLUENZA B AMPLIFICATION NEGATIVE (NEGATIVE)
== END ==
LOC: SKLAB7 10:10
PROVIDERS: ATTEND Internal Medicine
DX: J06.9 Acute upper respiratory infection, unspecified (principal); R09.81 Nasal congestion

== ENCOUNTER 2018-04-11 17:07 | Inpatient (IN) | payer MEDICARE, MEDICAID ==
[~2018-04-11] VITALS: Ht 175.3 cm; Wt 71.2 kg
[~2018-04-11 17:07] MED LIST changes: -ALBU83IN INH; -ATOR1TAB19 PO; -DRIS50003 PO; -ELIQ2.5T PO; -LOPE2CAP PO; -METO1TAB7 PO; -NEPHTAB PO; -QUES4POW PO; -TORS10TA3 PO; -TUSSLIQ3 PO
[2018-04-11 18:07] LABS: BASO % 0.4 % (0.0-1.0); EOS % 0.2 % (0.0-3.0); HEMATOCRIT 34.6 % (42.0-52.0); HEMOGLOBIN 11.2 g/dl (13.5-17.5); LYMPH # 0.4 10^3/uL (1.5-4.5); LYMPH % 7.4 % (24.0-44.0); MEAN CORPUSCULAR HEMOGLOBIN 32.3 pg (27.0-33.0); MEAN CORPUSCULAR HGB CONC 32.4 g/dl (32.0-36.5); MEAN CORPUSCULAR VOLUME 99.7 fl (80.0-96.0); MONO # 0.7 10^3/uL (0.0-0.8); MONO % 13.3 % (0.0-5.0); NEUTROPHILS # 4.3 10^3/uL (1.8-7.7); NEUTROPHILS % 78.3 % (36.0-66.0); PLATELET COUNT, AUTOMATED 120 10^3/uL (150-450); RED BLOOD COUNT 3.47 10^6/uL (4.30-6.10); WHITE BLOOD COUNT 5.4 10^3/uL (4.0-10.0)
[2018-04-11] MEDS ORDERED: METO1TAB7 PO (18:44)
[2018-04-11] MEDS ORDERED: QUES4POW PO (18:44)
[2018-04-11] MEDS ORDERED: NEPHTAB PO (18:44)
[2018-04-11] MEDS ORDERED: LOPE2CAP PO (18:44)
[2018-04-11] MEDS ORDERED: ELIQ2.5T PO (18:44)
[2018-04-11] MEDS ORDERED: TORS10TA3 PO (18:44)
[2018-04-11] MEDS ORDERED: ALBU83IN INH (18:44)
[2018-04-11] MEDS ORDERED: ATOR1TAB19 PO (18:44)
[2018-04-11] MEDS ORDERED: DRIS50003 PO (18:44)
[2018-04-11] MEDS ORDERED: TUSSLIQ3 PO (18:44)
[2018-04-11 18:56] LABS: ALBUMIN 2.9 GM/DL (3.2-5.2); BILIRUBIN,DIRECT 0.8 MG/DL (0.0-0.2); BILIRUBIN,TOTAL 1.3 MG/DL (0.2-1.0); CALCIUM LEVEL 8.4 MG/DL (8.8-10.2); CREATININE FOR GFR 3.44 MG/DL (0.70-1.30); GLOMERULAR FILTRATION RATE 19.2 (>49); MB/CK RELATIVE INDEX 0.29 (< OR =4); POTASSIUM SERUM 3.3 MEQ/L (3.5-5.1); TOTAL PROTEIN 6.5 GM/DL (6.4-8.2); TROPONIN I 0.15 NG/ML (< 0.10)
--- NOTE | 2018-04-11 19:27 | REP ---
ACUTE ABDOMINAL SERIES: 04/11/2018. Comparison: AP Portable chest 11/12/2017, CT 05/09/2017. Clinical history: Abdominal pain. AP seated chest: Single lead AICD pacer again present with lead terminating in the right ventricle. Sternotomy wires again noted. Cardiac silhouette magnified by portable technique and hypoinflation. There is vascular congestion, some alveolar opacities suggesting alveolar edema or infiltrates as well as effusion. Abdomen: Two cross-table laterals and three AP views were used. Bowel loops appear to be floating in the central abdomen. There is gas and stool scattered throughout the colon without dilatation. No sign of obstruction. No free air on the cross-table lateral view. There are degenerative changes in the spine and hips. No abnormal calcifications over the renal fossae or expected course of the ureters. A pelvic phlebolith noted. Impression: 1. Suspected large volume of ascites. It appears that the bowel loops are floating centrally and the flanks are bulging. 2. Gas throughout small bowel loops without signs of obstruction with stool and gas throughout the colon. No evidence of free air on the cross-table lateral. 3. Extensive airspace opacities suggesting alveolar edema but possible effusions may be present. Sternotomy wires, single lead AICD pacer and heart size as before. Electronically Signed by Win Huntley MD 04/11/2018 09:31 P
[2018-04-11] MEDS ORDERED: POTASSIUM CHLORIDE 10 MEQ SR TABLET PO ONE (21:00)
[2018-04-11 21:47] LABS: MB/CK RELATIVE INDEX 0.23 (< OR =4); TROPONIN I 0.17 NG/ML (< 0.10)
[2018-04-11] MEDS ORDERED: ONDANSETRON 4 MG TAB (S0181) PO PRN (23:15)
[2018-04-11] MEDS ORDERED: ACETAMINOPHEN TAB 650MG DOSE (2X325MG) PO PRN (23:15)
[2018-04-11] MEDS ORDERED: GLUCOSE 4 GM CHEW TABLET PO PRN (23:45)
[2018-04-11] MEDS ORDERED: GLUCAGON FOR INJ 1 MG VIAL (J1610) SC PRN (23:45)
[2018-04-11] MEDS ORDERED: DEXTROSE 50% 50 ML SYRINGE IV PRN (23:45)
--- NOTE | 2018-04-11 23:56 | HPEPDOC ---
[facility] Medical History & Physical Date of Admission Apr 11, 2018 Primary Care Physician: CARLITOS JARAMILLO DO Attending Physician: FREDERICK ROBERTS MD History and Physical CHIEF COMPLAINT: Abdominal pain, with distention HISTORY OF PRESENT ILLNESS: The patient is a 62-year-old white male, resident at [facility], with multiple chronic medical conditions, including severe congestive heart failure (CHF), end-stage renal disease - on dialysis 3 times a week, presented to the hospital for evaluation of worsening abdominal distention. He stated that in the last few days he has been suffering from worsening abdominal distention, and abdominal pain. Patient routinely gets paracentesis every 2 weeks, for abdominal ascites caused by severe systolic congestive heart failure and end-stage renal disease. On initial evaluation. Patient denied nausea, denies any vomiting, denied shortness of breath denied. Recent fever, denies chills. He denied any diarrhea. In the ER, X-rays showed large volume ascites. He was also noticed to have elevated troponins. Hospitalist team was called for admission based on ascites and abdominal pain. PAST MEDICAL HISTORY: 1. End-stage renal disease - on hemodialysis Monday, Monday and Monday 2. Hypertension. 3. Mild chronic anemia due to end-stage renal disease. 4. Chronic systolic congestive heart failure (CHF). Ejection fraction (EF) is 20%. 5. History of acid reflux. 6. History of dyslipidemia. 7. History of CVA without any residual. 8. Type 2 diabetes with nephropathy and neuropathy 9. History of brain aneurysm with clipping 10. Coronary artery disease status post bypass surgery in 2009 11. Anemia of chronic kidney disease PAST SURGICAL HISTORY; 1. Cardiac bypass surgery. 2. Brain aneurysm clipping. 3. Automatic implantable cardioverter defibrillator (AICD) placement. 4. Arteriovenous (AV) fistula in right arm. SOCIAL HISTORY: Denies smoking, denies alcohol use. Denies illicit drug abuse. He is a [employer]. He is a resident in the [facility]. ALLERGIES: Please see below. REVIEW OF SYSTEMS: Patient was only willing to admit to abdominal pain and fatigue. Denied 12 point review of system. He appeared irritated with questions PHYSICAL EXAMINATION: VITAL SIGNS: See below GENERAL: Elderly occasion male, no apparent distress, appears irritated HEENT: Atraumatic. Pupils are equal, round, reactive to light. Extraocular, poor dentition muscles normal. No jaundice. NECK: No jugular venous distention (JVD). LUNGS: Decreased breath sounds bilaterally, but no wheezing, no crackles. HEART; S1, S2 normal regular rate and rhythm ABDOMEN: Soft, distended, bowel sounds present, no tenderness, no guarding. Negative Sinclair sign, fluid wave noted LOWER EXTREMITIES: No edema, no deformities SKIN: No rash. NEUROLOGICAL: Nonfocal. PSYCHOLOGIC: No acute psychosis HOME MEDICATIONS: Please see below. LABORATORY DATA: See below. IMAGING: Abdominal x-ray. 1. Suspected large volume of ascites. It appears that the bowel loops are floating centrally and the flanks are bulging. 2. Gas throughout small bowel loops without signs of obstruction with stool and gas throughout the colon. No evidence of free air on the cross-table lateral. 3. Extensive airspace opacities suggesting alveolar edema but possible effusions may be present. Sternotomy wires, single lead AICD pacer and heart size as before. MICROBIOLOGY: Please see below. ASSESSMENT: A 62-year-old man presented with abdominal pain, and abdominal distention. Noted to have massive ascites and elevated troponins on initial evaluation. PLAN: 1. Massive ascites secondary to congestive heart failure and end-stage renal disease, he undergoes routine paracentesis every 2 weeks -Paracentesis will be scheduled for tomorrow -Will attempt to make patient comfortable overnight -Pain control as needed. 2. End-stage renal disease, on hemodialysis. -Please consult Nephrology in the AM 3. Type 2 diabetes. -Sliding-scale insulin regimen -Carbohydrate consistent diet, with 2 g sodium 4. Chronic systolic congestive heart failure, ejection fraction is 20%. -Appears to be euvolemic at this time, we'll continue to monitor. -No crackles heard on lung exam, no difficulty breathing 5. History of hypertension. -Continue home medication 6. Mild chronic anemia due to end-stage renal disease. -Nephrology consulted -Continue to trend CBC 7. DVT prophylaxis -Heparin SC 8. Elevated troponins 2/ to ascites -EKG did not show any ST elevation -Continue to trend Vital Signs Vital Signs Date Time Temp Pulse Resp B/P (MAP) Pulse Ox O2 Delivery O2 Flow Rate FiO2 04/11/18 21:30 115/77 (90) 04/11/18 21:22 90 19 97 04/11/18 17:24 Room Air 04/11/18 17:16 99.4 Laboratory Data Labs 24H Laboratory Tests 2 04/11/18 17:52: Immature Granulocyte % (Auto) 0.4, White Blood Count 5.4, Red Blood Count 3.47L, Hemoglobin 11.2L, Hematocrit 34.6L, Mean Corpuscular Volume 99.7H, Mean Corpuscular Hemoglobin 32.3, Mean Corpuscular Hemoglobin Concent 32.4, Red Cell Distribution Width 15.3H, Platelet Count 120L, Neutrophils (%) (Auto) 78.3H, Lymphocytes (%) (Auto) 7.4L, Monocytes (%) (Auto) 13.3H, Eosinophils (%) (Auto) 0.2, Basophils (%) (Auto) 0.4, Neutrophils # (Auto) 4.3, Lymphocytes # (Auto) 0.4L, Monocytes # (Auto) 0.7, Eosinophils # (Auto) 0.0, Basophils # (Auto) 0.0, Nucleated Red Blood Cells % (auto) 0.0, Anion Gap 8, Glomerular Filtration Rate 19.2L, Calcium Level 8.4L, Aspartate Amino Transf (AST/SGOT) 52H, Alanine Aminotransferase (ALT/SGPT) 22, Alkaline Phosphatase 99, Total Bilirubin 1.3H, Direct Bilirubin 0.8H, Total Creatine Kinase 1463H, Creatine Kinase MB 4.0H, Creatine Kinase MB Relative Index 0.29, Troponin I 0.15H, Total Protein 6.5, Albumin 2.9L, Albumin/Globulin Ratio 0.81L, Lipase 31L 04/11/18 20:59: Total Creatine Kinase 1672H, Creatine Kinase MB 4.0H, Creatine Kinase MB Relative Index 0.23, Troponin I 0.17H CBC/BMP Laboratory Tests 04/11/18 17:52 Red Blood Count 3.47 L, Mean Corpuscular Volume 99.7 H, Mean Corpuscular Hemoglobin 32.3, Mean Corpuscular Hemoglobin Concent 32.4, Red Cell Distribution Width 15.3 H, Neutrophils (%) (Auto) 78.3 H, Lymphocytes (%) (Auto) 7.4 L, Monocytes (%) (Auto) 13.3 H, Eosinophils (%) (Auto) 0.2, Basophils (%) (Auto) 0. 4, Neutrophils # (Auto) 4.3, Lymphocytes # (Auto) 0.4 L, Monocytes # (Auto) 0.7, Eosinophils # (Auto) 0.0, Basophils # (Auto) 0.0 Microbiology Microbiology 04/11/18 Blood Culture, Received Pending 04/11/18 Blood Culture, Received Pending Home Medications Scheduled (Tussin Dm 100-10 mg/5Ml) 1 Liq Liq, 10 ML PO QID FOR 4 DAYS - STARTED 04/10/18 Albuterol Sulfate (Albuterol Sulfate) 2.5 Mg/3 Ml Nebu, 2.5 MG INH QID FOR 4 DAYS - STARTED 04/10/18 Apixaban Base (Eliquis) 2.5 Mg Tab, 2.5 MG PO BID Atorvastatin Calcium (Atorvastatin Calcium) 10 Mg Tab, 10 MG PO QHS Cholestyramine (Questran) 4 Gm Pow, 4 GM PO QPM Metoprolol Succinate (Metoprolol Succinate ER) 50 Mg Tab, 50 MG PO QHS Sertraline Hcl (Sertraline HCl) 25 Mg Tab, 25 MG PO DAILY TAKES AT NOON Spironolactone (Aldactone) 25 Mg Tab, 25 MG PO BID TAKES AT 1200 & 2000 Torsemide (Torsemide) 10 Mg Tab, 10 MG PO DAILY TAKES AT 1200 Vitamin B Cmplx/Vitc/Folic Ac (Nephro-Sarah Rx 1 mg) 1 Tab Tab, 1 TAB PO DAILY TAKES AT 1200 Vitamin D (Drisdol) 50,000 Unit Cap, 50,000 UNIT PO QWEEK SATURDAYS @ 1100 Scheduled PRN Acetaminophen (Tylenol) 325 Mg Tab, 650 MG PO Q4H PRN for PAIN / FEVER Bisacodyl (Dulcolax) 10 Mg Sup, 10 MG ND DAILY PRN for CONSTIPATION Loperamide HCl (Loperamide HCl) 2 Mg Tab, 2 MG PO Q6H PRN for DIARRHEA Allergies Coded Allergies: Eggs or Egg-derived Products (Unverified Adverse Reaction, Mild, DIARRHEA, UPSET STOMACH, 04/11/18) GME ATTESTATION GME ATTESTATION My faculty preceptor for this patient encounter was physically present during the encounter and was fully available. All aspects of the patient interview, examination, medical decision making process, and medical care plan development were reviewed and approved by the faculty preceptor. The faculty preceptor is aware and concurs with the plan as stated in the body of this note and will attest to such by his/her cosignature. NITHYA MARTIN DO Apr 11, 2018 23:56
[2018-04-12 02:15] VITALS: BP 108/80
[2018-04-12 05:31] LABS: HEMATOCRIT 34.8 % (42.0-52.0); HEMOGLOBIN 11.3 g/dl (13.5-17.5); MEAN CORPUSCULAR HEMOGLOBIN 32.1 pg (27.0-33.0); MEAN CORPUSCULAR HGB CONC 32.5 g/dl (32.0-36.5); MEAN CORPUSCULAR VOLUME 98.9 fl (80.0-96.0); PLATELET COUNT, AUTOMATED 118 10^3/uL (150-450); RED BLOOD COUNT 3.52 10^6/uL (4.30-6.10)
[2018-04-12] MEDS: HEPARIN SOD (PORCINE) 5000 UNITS/ML VIAL SC SCH ×3 (05:32→20:52)
[2018-04-12 06:04] LABS: CALCIUM LEVEL 7.9 MG/DL (8.8-10.2); CREATININE FOR GFR 3.71 MG/DL (0.70-1.30); GLOMERULAR FILTRATION RATE 17.6 (>49); POTASSIUM SERUM 3.7 MEQ/L (3.5-5.1); TROPONIN I 0.23 NG/ML (< 0.10)
[2018-04-12] MEDS: HumaLOG INSULIN (NovoLOG) PER UNIT SC SCH ×4 (06:38→20:52)
[2018-04-12 06:42] LABS: ALBUMIN 2.9 GM/DL (3.2-5.2)
[2018-04-12 08:00] VITALS: BP 110/58
--- NOTE | 2018-04-12 08:10 | ECGEPIP ---
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
[2018-04-12] MEDS ORDERED: SERTRALINE HCL 25 MG TABLET PO SCH (09:00)
[2018-04-12] MEDS: PANTOPRAZOLE 40MG TAB (PROTONIX) PO SCH (09:26)
--- NOTE | 2018-04-12 11:58 | IPNPDOC ---
Date Seen The patient was seen on 04/12/18. Progress Note SUBJECTIVE: Patient complains of cough he denies any shortness of breath he denies abdominal pain or feeling that his belly is distended at this time Vital signs : Please see below. GENERAL: Disheveled elderly man appears older than stated age lying flat in bed he does not appear to be in acute distress he has a wet cough on exam HEENT: Disheveled port indentation no significant elevation in CVP CARDIOVASCULAR: S1-S2 regular. RESPIRATORY: Some scattered rales throughout no audible wheeze good air movement. ABDOMINAL: Grossly obese significant fluid wave but no tense ascites no EXTREMITIES: 1+ edema of the right lower extremity but otherwise no clubbing or cyanosis LABORATORY DATA, IMAGING STUDIES, MICROBIOLOGY: Please see below. Echocardiogram: Ordered. DVT prophylaxis ordered?: Plan to resume home anticoagulation following paracentesis ASSESSMENT AND PLAN: This is a 62-year-old man with cough. PROBLEMS: 1. Cough: Patient was reportedly brought from the group home with concern for abdominal pain and significant ascites however his only complaints to me this mo rning her cough. I will check a chest x-ray respiratory PCR panel and provide him with an Acapella he appears fairly stable for the moment no such I will hold off on any IV antibiotics. Blood cultures been drawn and are pending. He does have significant ascites is been ordered for paracentesis today we'll send diagnostic studies including cell counts and culture 2. Ascites: During his previous hospitalization he was concerned this was secondary to congestive heart failure seems unusual to me that he would have isolated ascites without significant pulmonary edema is scheduled for paracentesis will check a serum ascites albumin gradient is also ordered for an echocardiogram to reevaluate his cardiac function for the time being he does not appear to be grossly volume overloaded other than his ascites. We are resuming his home diuretics cautiously 3. Chronic right lower extremity edema: Patient denies knowing any etiology I'll check a duplex to ensure there is no DVT. 4. End-stage renal disease on hemodialysis: [facility] services help is greatly appreciated his regular dialysis days are Monday 5. Diabetes he is on a 2 g consistent carb diet on sliding-scale insulin I will switch him to a renal consistent carb diet. 6. Congestive heart failure: I'll resume his spironolactone torsemide as well as metoprolol all with holding parameters we are rechecking an echocardiogram he'll receive paracentesis today 7. Mood disorder: Continue with sertraline 8. Dyslipidemia: Continue with his home statin 9. Anemia of end-stage renal disease: Acceptable continue to monitor 10. Thrombocytopenia: Could be related to an underlying infection we are monitoring him closely at this time continue to check daily 11. Abnormal troponin: No concerning EKG changes he doesn't history of atrial fibrillation and is on anticoagulation he is on a beta joel and statin possibly some demand related to his acute medical illness which we are currently evaluating we'll continue to trend his troponin 12. Atrial fibrillation: He is anticoagulated with Eliquis which we will resume following his paracentesis as well as rate controlled with a beta joel DISPOSITION: Pending clinical improvement. VS, I&O, 24H, [facility] Vital Signs/I&O Vital Signs Date Time Temp Pulse Resp B/P (MAP) Pulse Ox O2 Delivery O2 Flow Rate FiO2 04/12/18 08:00 97.5 61 19 110/58 (75) 96 04/12/18 01:45 Room Air Laboratory Data 24H LABS Laboratory Tests 2 04/11/18 17:52: Immature Granulocyte % (Auto) 0.4, White Blood Count 5.4, Red Blood Count 3.47L, Hemoglobin 11.2L, Hematocrit 34.6L, Mean Corpuscular Volume 99.7H, Mean Corpuscular Hemoglobin 32.3, Mean Corpuscular Hemoglobin Concent 32.4, Red Cell Distribution Width 15.3H, Platelet Count 120L, Neutrophils (%) (Auto) 78.3H, Lymphocytes (%) (Auto) 7.4L, Monocytes (%) (Auto) 13.3H, Eosinophils (%) (Auto) 0.2, Basophils (%) (Auto) 0.4, Neutrophils # (Auto) 4.3, Lymphocytes # (Auto) 0.4L, Monocytes # (Auto) 0.7, Eosinophils # (Auto) 0.0, Basophils # (Auto) 0.0, Nucleated Red Blood Cells % (auto) 0.0, Anion Gap 8, Glomerular Filtration Rate 19.2L, Calcium Level 8.4L, Aspartate Amino Transf (AST/SGOT) 52H, Alanine Aminotransferase (ALT/SGPT) 22, Alkaline Phosphatase 99, Total Bilirubin 1.3H, Direct Bilirubin 0.8H, Total Creatine Kinase 1463H, Creatine Kinase MB 4.0H, Creatine Kinase MB Relative Index 0.29, Troponin I 0.15H, Total Protein 6.5, Albumin 2.9L, Albumin/Globulin Ratio 0.81L, Lipase 31L 04/11/18 20:59: Total Creatine Kinase 1672H, Creatine Kinase MB 4.0H, Creatine Kinase MB Relative Index 0.23, Troponin I 0.17H 04/12/18 04:53: Nucleated Red Blood Cells % (auto) 0.0, Anion Gap 9, Glomerular Filtration Rate 17.6L, Calcium Level 7.9L, Troponin I 0.23#H, Albumin 2.9L, Blood Urea Nitrogen 23H, Creatinine 3.71H, Sodium Level 137, Potassium Level 3.7, Chloride Level 102, Carbon Dioxide Level 26 CBC/BMP Laboratory Tests 04/11/18 17:52 Red Blood Count 3.47 L, Mean Corpuscular Volume 99.7 H, Mean Corpuscular Hemoglobin 32.3, Mean Corpuscular Hemoglobin Concent 32.4, Red Cell Distribution Width 15.3 H, Neutrophils (%) (Auto) 78.3 H, Lymphocytes (%) (Auto) 7.4 L, Monocytes (%) (Auto) 13.3 H, Eosinophils (%) (Auto) 0.2, Basophils (%) (Auto) 0.4, Neutrophils # (Auto) 4.3, Lymphocytes # (Auto) 0.4 L, Monocytes # (Auto) 0.7, Eosinophils # (Auto) 0.0, Basophils # (Auto) 0.0 04/12/18 04:53 Red Blood Count 3.52 L, Mean Corpuscular Volume 98.9 H, Mean Corpuscular Hemoglobin 32.1, Mean Corpuscular Hemoglobin Concent 32.5, Red Cell Distribution Width 15.2 H, Calcium Level 7.9 L Microbiology Microbiology 04/11/18 Blood Culture, Received Pending 04/11/18 Blood Culture, Received Pending KARISSA JC MD Apr 12, 2018 11:58
[2018-04-12] MEDS ORDERED: BISACODYL 10 MG SUPP PR PRN (12:00)
[2018-04-12] MEDS ORDERED: LOPERAMIDE 2 MG CAP PO PRN (12:00)
--- NOTE | 2018-04-12 12:32 | REP ---
Chest one-view HISTORY: Cough Comparison: 04/11/2018 Parenchymal densities are present in the lungs consistent with bilateral infiltrates or edema. Small bilateral pleural effusions are present. The cardiac silhouette is enlarged. The pulmonary vasculature is prominent. A cardiac pacemaker is present. Impression: 1. Bilateral infiltrates or edema unchanged compared to the previous study. 2. Small bilateral pleural effusions unchanged compared to the previous study. 3. Cardiomegaly. Electronically Signed by Juancarlos Ambrocio MD 04/12/2018 12:23 P
[2018-04-12] MEDS: NEPHRO-VIT TAB (NEPHROCAPS) PO SCH (13:30)
[2018-04-12 13:38] VITALS: BP 98/68
[2018-04-12] MEDS: TORSEMIDE 20 MG TAB PO SCH (13:39)
[2018-04-12] MEDS: SERTRALINE HCL 25 MG TABLET PO SCH (13:42)
[2018-04-12] MEDS: SPIRONOLACTONE 25 MG TAB PO SCH ×2 (13:42→20:52)
[2018-04-12] MEDS: guaiFENesin ER 600 MG TAB PO SCH ×2 (13:44→20:52)
[2018-04-12 13:53] LABS: SPEC. GRAVITY BODY FLUIDS 1.021 (NOT ESTABLISHED)
[2018-04-12 14:04] LABS: ASCITES FL COLOR PALE YELLOW (COLORLESS); SOURCE, BODY FLUID ASCITES
[2018-04-12 14:05] LABS: APPEARANCE, BODY FLUID HAZY (CLEAR)
[2018-04-12 14:28] LABS: SOURCE, BODY FLUID ALBUMIN ASCITES; SOURCE, BODY FLUID GLUCOSE ASCITES; SOURCE, BODY FLUID TOT PROTEIN ASCITES
--- NOTE | 2018-04-12 14:51 | REP ---
RIGHT LOWER EXTREMITY DUPLEX VEINS: HISTORY: Swelling. There is are no filling defects in the deep venous system. The deep venous system is patent. IMPRESSION: There is no deep venous thrombosis. Electronically Signed by Juancarlos Ambrocio MD 04/12/2018 02:59 P
[2018-04-12] MEDS: ALBUTEROL SULFATE 2.5 MG/0.5 ML INH NEB SOLN INH SCH ×2 (15:57→20:30)
[2018-04-12 16:30] VITALS: BP 104/66
--- NOTE | 2018-04-12 17:56 | CR ---
DATE OF CONSULTATION: 04/12/2018 CONSULTATION REPORT FOR: Emeli Camacho MD REASON FOR CONSULTATION: Assist in the management of end-stage renal disease and hypervolemia. HISTORY OF PRESENT ILLNESS: Mr. Weber is a 62-year-old gentleman with known history of end-stage renal disease, hypertension, cirrhosis of liver with recurrent ascites, chronic systolic congestive heart failure with ejection fraction of 20%, gastroesophageal reflux disease, prior stroke and type 2 diabetes. He is currently a alf resident at [facility] and was brought to the emergency room last night due to abdominal pain and distension. He was found to have recurrence of his ascites. The patient did receive his dialysis treatment yesterday and completed his treatment. He is regularly dialyzed on Monday, Monday and Monday schedule and will be due for dialysis tomorrow. A nephrology consultation was requested and the patient is seen this morning. PAST MEDICAL AND SURGICAL HISTORY: Significant for: 1. Type 2 diabetes. 2. Hypertension. 3. End-stage renal disease currently on maintenance hemodialysis three times a week. 4. History of anemia. 5. History of chronic systolic congestive heart failure with ejection fraction 20%. 6. Dyslipidemia. 7. Prior stroke. 8. History of brain aneurysm with previous clipping. 9. Coronary artery disease, status post coronary artery bypass graft (CABG). 10. Anemia of chronic kidney disease. 11. History of dyslipidemia. 12. History of cirrhosis of liver with recurrent ascites requiring paracentesis. Past surgical history is significant for CABG, brain aneurysm clipping, automatic implantable cardioverter defibrillator (AICD) placement and arteriovenous (AV) fistula creation. PERSONAL AND SOCIAL HISTORY: The patient denies any recent history of smoking, alcohol or drug use. He is currently a [facility] resident. FAMILY HISTORY: Significant for diabetes and end-stage renal disease. His cousin is also on dialysis. REVIEW OF SYSTEMS: The patient is not a very good historian. He has been a alf resident due to inability to care for self at home. He has multiorgan problems with stroke, congestive heart failure, end-stage renal disease and diabetes. He has not missed any treatments recently since he is in alf. He denies any fever or chills. Ears, nose and throat are unremarkable. Cardiovascular system is significant for severe systolic congestive heart failure with ejection fraction of only 20%. He denied any dyspnea on admission last evening. However, this morning he seems to be short of breath with cough. Respiratory system is significant for cough without any hemoptysis or pleuritic type of chest pain. Gastrointestinal (GI) system is significant for cirrhosis of liver with recurrent ascites. He does have also prior history of GI bleed. Genitourinary () system is negative for dysuria or hematuria. Musculoskeletal system is significant for generalized weakness and difficulty ambulating. He does have some mild chronic leg edema. Neurological system is significant for prior stroke and clipping of a brain aneurysm. Hematological system is significant for anemia of chronic kidney disease. He is not on any chronic anticoagulation. Psychosocial system is significant for poor compliance and depression. Endocrine system is significant for diabetes and secondary hyperparathyroidism. Skin is negative for rash or ulcers. PHYSICAL EXAMINATION: Temperature 98.2 degrees Fahrenheit, heart rate 70 per minute and respiratory rate 16 per minute. Blood pressure 98/68 mmHg and oxygen saturation 98% on room air. His head is atraumatic. Neck is supple and jugular venous distention (JVD) is mildly elevated. There is no thyroid enlargement. There is no oral thrush or ulcers. Heart sounds are regular with systolic murmur grade 2/6. Lungs have bilateral rales and no wheezing. Abdomen is soft, distended with ascites and bowel sounds are present. On left upper chest he has a pacemaker in place. Extremities have no cyanosis or clubbing. Lower extremity edema is 1+. AV fistula is patent in his left arm. Neurologically he is at his baseline mentation without a significant focal deficit. LABORATORY DATA: WBC count is 7.0, hemoglobin 11.3 and hematocrit 34.8. Platelets 118. Sodium 137, potassium 3.7, CO2 of 26, BUN 23 and creatinine 3.71. Calcium level is 7.9. Troponin 0.15, 0.17 and 0.23, and albumin is 2.9. CPK was 1463 and 1672 respectively. PROBLEMS: 1. End-stage renal disease. The patient was dialyzed yesterday and he completed his dialysis treatment. We will plan to dialyze him again tomorrow morning. 2. Acute on chronic systolic congestive heart failure in the setting of end-stage renal disease. The patient does seem to have clinically slightly decompensated volume status. However, he is oxygenating 98% on room air. I am going to get a chest x-ray to assess his respiratory status as he does have a cough. We will try to remove fluid with dialysis as tolerated. He should remain on oral fluid restriction of 1500 mL per day. 3. Anemia. His anemia is very mild and does not need any urgent intervention. 4. Recurrent ascites with cirrhosis of liver. The patient has had paracentesis in the past and he is going to have another paracentesis done. 5. Hypotension. This is a chronic issue and we will continue to monitor closely. His medications will need to be held if blood pressure is below 110 mmHg. We can probably use some midodrine if needed on dialysis days. Thank you for involving me in the care of Mr. Weber. I will follow him along with you.
--- NOTE | 2018-04-12 19:28 | REP ---
Ultrasound-guided paracentesis The procedure was performed under the direct supervision of Dr. Huntley. The risks and benefits of the procedure were explained to the patient and informed consent was obtained. The largest pocket of fluid was localized in the right flank in using ultrasound guidance. The skin was prepped and draped in a sterile fashion. 1% lidocaine was used as a local anesthetic. An 8-Comoran multi side-hole catheter was inserted using trocar technique. 5000 ml of dark yellow fluid was withdrawn with a sample sent to the lab for analysis. The patient tolerated the procedure well and there were no immediate complications. After the appropriate amount of monitored convalescence the patient was discharged from the department. Reviewed by SHARON Velez 04/12/2018 05:02 P Electronically Signed by Win Huntley MD 04/12/2018 07:19 P
[2018-04-12] MEDS: CHOLESTYRAMINE 4 GM PWD PKT PO SCH (20:51)
[2018-04-12] MEDS: ATORVASTATIN 10 MG TAB PO SCH (20:52)
[2018-04-12] MEDS: METOPROLOL SUCC (TopROL XL) 50MG **XL** TAB PO SCH (20:52)
--- NOTE | 2018-04-12 21:20 | ECHO ---
DATE OF PROCEDURE: 04/12/2018 REFERRING PHYSICIAN: Emeli Camacho MD INDICATION: Congestive heart failure. HEIGHT: 175 cm WEIGHT: 73 kg DIMENSIONS: IVS: 1.2 LV: 4.9 LVPW: 1.2 LA: 4.0 Aorta: 3.2 IVC: 2.3 Mitral E wave velocity: 55, A wave: 27 E prime septal 4.3 E prime lateral: 9.5 Left atrial volume index: 43 FINDINGS The study is of difficult technical quality with poor parasternal and subcostal views but decent quality apical views. The patient is in sinus rhythm. Left ventricle is of normal size. There is atypical septal motion related probably to underlying pacemaker driven rhythm and overall severe global hypokinesis, which appears global in nature. Overall estimated left ventricular ejection fraction (LVEF) around 20%. Right ventricle does not appear grossly dilated. Both atria are severely enlarged. There is an echo artifact in right-sided heart chambers corresponding to either ICD or pacemaker lead. Aortic valve is prominently sclerotic but mobility seems preserved. There are also degenerative abnormalities of mitral valve with mitral annular calcifications. Tricuspid valve appears normal. Pulmonic valve was not visualized. No pericardial effusion is noted. Inferior vena cava is dilated and there is no appreciable collapse with respiration indicative of high central venous pressure. Aortic root is normal. Aortic arch and abdominal aorta were not well seen. Doppler interrogation of aortic valve reveals no significant stenosis or insufficiency. There is mild mitral insufficiency and mild tricuspid insufficiency. Calculated pulmonary artery pressure is at least 70 mmHg corresponding to moderately severe pulmonary hypertension. Mitral inflow pattern and tissue Doppler imaging of mitral annulus reveal pseudo normal filling pattern indicative of high left ventricular end-diastolic pressure. CONCLUSIONS: 1. Study is of fair technical quality. 2. Normal left ventricle (LV) size with mild left ventricular hypertrophy (LVH), atypical septal motion and severe global hypokinesis. Estimated left ventricular ejection fraction (LVEF) approximately 20%. 3. Severe biatrial enlargement. 4. Degenerative abnormalities of aortic and mitral valves but no hemodynamically significant disease. 5. High central venous pressure. 6. Moderately severe pulmonary hypertension. COMMENT: Subacute bacterial endocarditis (SBE) prophylaxis is not recommended. Study is consistent with either ischemic or nonischemic cardiomyopathy that appears to be acutely exacerbated.
[2018-04-12 22:00] VITALS: BP 118/57
[2018-04-13] MEDS: PANTOPRAZOLE 40MG TAB (PROTONIX) PO SCH (05:56)
[2018-04-13] MEDS: HEPARIN SOD (PORCINE) 5000 UNITS/ML VIAL SC SCH (05:56)
[2018-04-13] MEDS: guaiFENesin ER 600 MG TAB PO SCH ×2 (05:56→21:16)
[2018-04-13 06:00] VITALS: BP 99/67
[2018-04-13] MEDS: ALBUTEROL SULFATE 2.5 MG/0.5 ML INH NEB SOLN INH SCH (07:20)
[2018-04-13] MEDS: HumaLOG INSULIN (NovoLOG) PER UNIT SC SCH ×4 (07:30→21:00)
[2018-04-13] MEDS ORDERED: ALBUTEROL SULFATE 2.5 MG/0.5 ML INH NEB SOLN NEB PRN (07:45)
[2018-04-13 09:52] LABS: HEMOGLOBIN 10.8 g/dl (13.5-17.5); MEAN CORPUSCULAR HEMOGLOBIN 32.1 pg (27.0-33.0); MEAN CORPUSCULAR HGB CONC 32.7 g/dl (32.0-36.5); MEAN CORPUSCULAR VOLUME 98.2 fl (80.0-96.0); PLATELET COUNT, AUTOMATED 116 10^3/uL (150-450); RED BLOOD COUNT 3.36 10^6/uL (4.30-6.10); WHITE BLOOD COUNT 7.1 10^3/uL (4.0-10.0)
[2018-04-13 10:08] LABS: CALCIUM LEVEL 7.7 MG/DL (8.8-10.2); CREATININE FOR GFR 4.52 MG/DL (0.70-1.30); POTASSIUM SERUM 3.2 MEQ/L (3.5-5.1)
--- NOTE | 2018-04-13 10:43 | IPNPDOC ---
Date Seen The patient was seen on 04/13/18. Progress Note SUBJECTIVE: Patient tells me that he is feeling better today he still has a cough but his belly feels better after his paracentesis. He has no complaints at this time Vital signs : Please see below. GENERAL: Disheveled elderly man appears older than stated sitting up in bed he does not appear to be in acute distress HEENT: Disheveled poor indentation some subtle elevation in CVP CARDIOVASCULAR: S1-S2 regular. RESPIRATORY: Some scattered rales throughout no audible wheeze good air movement. ABDOMINAL: Grossly obese significant fluid wave but no tense ascites no EXTREMITIES: 1+ edema of the right lower extremity but otherwise no clubbing or cyanosis LABORATORY DATA, IMAGING STUDIES, MICROBIOLOGY: Please see below. Echocardiogram: 1. Study is of fair technical quality. 2. Normal left ventricle (LV) size with mild left ventricular hypertrophy (LVH), atypical septal motion and severe global hypokinesis. Estimated left ventricular ejection fraction (LVEF) approximately 20%. 3. Severe biatrial enlargement. 4. Degenerative abnormalities of aortic and mitral valves but no hemodynamically significant disease. 5. High central venous pressure. 6. Moderately severe pulmonary hypertension. DVT prophylaxis ordered?: Plan to resume home anticoagulation following paracentesis ASSESSMENT AND PLAN: This is a 62-year-old man with cough. PROBLEMS: 1. Cough: Likely related to decompensated severe systolic congestive heart failure and I believe he would benefit from fluid removal during hemodialysis today he has been restarted on his home diuretics Nephrology help is greatly appreciated otherwise an infectious workup has thus far been negative. He has been restarted on his home diuretics as well as metoprolol. 2. Ascites: Improved following paracentesis serum ascites albumin gradient suggestive of ascites secondary to portal hypertension previously pathology was negative cell counts are not suggestive of SBP. I will check a liver ultrasound as well as an INR to evaluate his liver function and assess for cirrhosis I suppose it is possible he has some degree of cirrhosis secondary to congestive hepatopathy related to his congestive heart failure. 3. Chronic right lower extremity edema: Patient denies knowing any etiology duplex this visit has been negative for any DVT 4. End-stage renal disease on hemodialysis: Appreciate nephrology services help his regular dialysis days are Monday 5. Diabetes he is on a renal consistent carb diet with 1500 mL fluid restriction 6. Mood disorder: Continue with sertraline 7. Dyslipidemia: Continue with his home statin 8. Anemia of end-stage renal disease: Acceptable continue to monitor 9. Thrombocytopenia: Could potentially be related to underlying cirrhosis check a liver ultrasound appears to be stable he is on anticoagulation 11. Abnormal troponin: No concerning EKG changes I suspect likely some demand ischemia related to decompensated systolic congestive heart failure 12. Atrial fibrillation: He is anticoagulated with Eliquis as well as rate controlled with a beta joel DISPOSITION: Pending clinical improvement. Possibly back to [facility] as early as tomorrow VS, I&O, 24H, [facility] Vital Signs/I&O Vital Signs Date Time Temp Pulse Resp B/P (MAP) Pulse Ox O2 Delivery O2 Flow Rate FiO2 04/13/18 06:00 97.9 82 19 99/67 (78) 95 04/12/18 01:45 Room Air I&O- Last 24 Hours up to 6 AM 04/13/18 06:00 Intake Total 840 ml Output Total 0 ml Balance 840 ml Laboratory Data 24H LABS Laboratory Tests 2 04/12/18 12:28: Body Fluid Source ASCITES, Body Fluid Color PALE YELLOW, Body Fluid Appearance HAZY, Body Fluid Specific [place] 1.021, Body Fluid WBC (Auto) 89H, Body Fluid RBC (Auto) < 2, Body Fluid Mononuclear Cells % Auto 96.6H, Fluid Polymorphonuclear Cell % Auto 3.4H, Body Fluid Glucose Source ASCITES, Body Fluid Glucose 89, Body Fluid Protein Source ASCITES, Body Fluid Total Protein 3.0, Body Fluid Albumin Source ASCITES, Body Fluid Albumin 1.5 04/12/18 13:03: Troponin I 0.16#H 04/12/18 13:30: Bedside Glucose (Misc Panel) 102 04/12/18 17:12: Bedside Glucose (Misc Panel) 103 04/12/18 19:55: Troponin I 0.15H 04/12/18 20:48: Bedside Glucose (Misc Panel) 86 04/13/18 09:10: Nucleated Red Blood Cells % (auto) 0.0, Anion Gap 11, Glomerular Filtration Rate 14.0L, Blood Urea Nitrogen 35#H, Creatinine 4.52H, Sodium Level 139, Potassium Level 3.2L, Chloride Level 102, Carbon Dioxide Level 26, Calcium Level 7.7L CBC/BMP Laboratory Tests 04/13/18 09:10 Red Blood Count 3.36 L, Mean Corpuscular Volume 98.2 H, Mean Corpuscular Hemoglobin 32.1, Mean Corpuscular Hemoglobin Concent 32.7, Red Cell Distribution Width 14.8 H, Calcium Level 7.7 L Microbiology Microbiology 04/11/18 Blood Culture - Preliminary, Resulted No growth after 24 hours . All specim... 04/11/18 Blood Culture - Preliminary, Resulted No growth after 24 hours . All specim... 04/12/18 Gram Stain - Final, Resulted 04/12/18 Body Fluid Culture, Resulted Pending 04/12/18 Respiratory Virus Panel (PCR) ([facility]) - Final, Complete KARISSA JC MD Apr 13, 2018 10:43
[2018-04-13 11:54] LABS: INR 1.29; PROTHROMBIN TIME 16.3 SECONDS (12.1-14.4)
[2018-04-13] MEDS ORDERED: HEPARIN 1,000 UNITS/ML 10ML VIAL (FOR RADIOLOGY& DIALYSIS ONLY) IV ONE (12:00)
[2018-04-13] MEDS: NEPHRO-VIT TAB (NEPHROCAPS) PO SCH (13:47)
[2018-04-13] MEDS: TORSEMIDE 20 MG TAB PO SCH (13:47)
[2018-04-13] MEDS: SPIRONOLACTONE 25 MG TAB PO SCH ×2 (13:48→20:00)
[2018-04-13] MEDS: SERTRALINE HCL 25 MG TABLET PO SCH (13:48)
[2018-04-13 14:00] VITALS: BP 101/65
--- NOTE | 2018-04-13 14:30 | IPN ---
DATE: 04/13/2018 Mr. Weber is seen this morning during hemodialysis. He was short of breath and had a cough yesterday. Chest x-ray did show pulmonary vascular congestion. He denies any fever or chills. He had paracentesis done and ascites was drained up to 5 liters. The patient feels abdominal distention has improved and pain has resolved. He denies any nausea or vomiting. On physical exam, temperature 97.9 degrees Fahrenheit, heart rate 82 per minute and respiratory rate 18 per minute. Blood pressure 99/67 mmHg and oxygen saturation 95% on room air. His head is atraumatic. Neck is supple and jugular venous distention (JVD) is not abnormally elevated. There is no oral thrush or ulcers. Heart sounds are regular with a systolic murmur grade 2/6. Lungs with bibasilar rales. Abdomen is soft and nontender. Ascites has improved significantly since yesterday. Extremities have no cyanosis or clubbing. Neurologically, he is awake and at his baseline mentation. Today's labs show WBC count 7.1, hemoglobin 10.8 and hematocrit 33.0. Platelets 116. Sodium 139, potassium 3.2, CO2 26, BUN 35 and creatinine 4.5. Glucose 140 and calcium 7.7. PROBLEMS: 1. End stage renal disease. The patient is being dialyzed this morning. He is tolerating his dialysis treatment well and his AV fistula is working. 2. Congestive heart failure. He is known to have severe systolic dysfunction with ejection fraction of only 20%. His volume status is decompensated and we are trying to remove about 3 liters of fluid as tolerated. 3. Hypokalemia. Probably some error as his potassium was 3.7 yesterday and he has not been dialyzed since then. We will dialyze him with 3.0 mEq potassium bath and recheck his electrolytes tomorrow. We can consider giving him potassium supplement if needed. 4. Anemia. His anemia is stable at this point and does not need any urgent intervention. 5. Cirrhosis of liver with ascites. The patient already had a paracentesis done and 5 liters fluid was removed yesterday. He is feeling much better today.
[2018-04-13] MEDS: METOPROLOL SUCC (TopROL XL) 50MG **XL** TAB PO SCH (20:50)
[2018-04-13] MEDS: APIXABAN 2.5 MG TAB (ELIQUIS) PO SCH (21:16)
[2018-04-13] MEDS: CHOLESTYRAMINE 4 GM PWD PKT PO SCH (21:16)
[2018-04-13] MEDS: ATORVASTATIN 10 MG TAB PO SCH (21:16)
[2018-04-13 22:00] VITALS: BP 95/59
[2018-04-14 06:00] VITALS: BP 103/65
[2018-04-14] MEDS: HumaLOG INSULIN (NovoLOG) PER UNIT SC SCH ×4 (07:30→21:00)
[2018-04-14 07:32] LABS: HEMATOCRIT 34.6 % (42.0-52.0); HEMOGLOBIN 11.4 g/dl (13.5-17.5); MEAN CORPUSCULAR HEMOGLOBIN 32.3 pg (27.0-33.0); MEAN CORPUSCULAR HGB CONC 32.9 g/dl (32.0-36.5); PLATELET COUNT, AUTOMATED 121 10^3/uL (150-450); RED BLOOD COUNT 3.53 10^6/uL (4.30-6.10); WHITE BLOOD COUNT 6.2 10^3/uL (4.0-10.0)
--- NOTE | 2018-04-14 07:45 | REP ---
The abdominal right upper quadrant ultrasound in a patient with known cirrhosis: There is a negative Sinclair's sign to transducer pressure. There is a questionable gallbladder wall polyp versus adherent calculus. The gallbladder wall is thickened measuring up to 5.2 mm. This could represent edema, fibrosis or could be secondary to ascites. . There is no pericholecystic fluid. There is no intrahepatic or extrahepatic biliary duct dilatation. The common biliary duct measures 5.2 mm in diameter. No hepatic masses are identified. The hepatic margin is lobulated compatible with cirrhosis. No hepatic solid masses are identified. There is an hepatic left lobe cyst measuring 1.6 x 1.3 x 1.2 cm. The pancreas is obscured by bowel gas. The right kidney measures 9.0 x 4.44 point 1 cm. There is no right renal calculus or hydronephrosis. No right renal solid or cystic masses are identified. There is a large right pleural effusion. There is moderate right upper quadrant abdominal ascites. No significant interval change from 05/12/2017. Electronically Signed by Chip Forrester MD 04/14/2018 07:37 A
[2018-04-14 08:04] LABS: CALCIUM LEVEL 7.7 MG/DL (8.8-10.2); CREATININE FOR GFR 3.36 MG/DL (0.70-1.30); GLOMERULAR FILTRATION RATE 19.8 (>49); POTASSIUM SERUM 3.4 MEQ/L (3.5-5.1)
--- NOTE | 2018-04-14 09:39 | REP ---
Portable chest, 09:00 a.m., single AP view, the patient semi upright: Comparisons are 04/12/2018 and 04/11/2018. There is cardiomegaly and bilateral alveolar and interstitial infiltrates and bilateral pleural effusions, all unchanged. Sternotomy wires and pacemaker are again identified, unchanged. Impression: No interval change. Electronically Signed by Chip Forrester MD 04/14/2018 09:31 A
[2018-04-14] MEDS: PANTOPRAZOLE 40MG TAB (PROTONIX) PO SCH (10:06)
[2018-04-14] MEDS: TORSEMIDE 20 MG TAB PO SCH (10:07)
[2018-04-14] MEDS: guaiFENesin ER 600 MG TAB PO SCH ×2 (10:07→21:33)
[2018-04-14] MEDS: APIXABAN 2.5 MG TAB (ELIQUIS) PO SCH ×2 (10:07→21:33)
[2018-04-14] MEDS: NEPHRO-VIT TAB (NEPHROCAPS) PO SCH (12:12)
[2018-04-14] MEDS: SPIRONOLACTONE 25 MG TAB PO SCH ×2 (12:13→20:43)
[2018-04-14] MEDS: SERTRALINE HCL 25 MG TABLET PO SCH (12:13)
--- NOTE | 2018-04-14 12:20 | IPNPDOC ---
Date Seen The patient was seen on 04/14/18. Progress Note SUBJECTIVE: Patient tells me that he is feeling better today he denies any complaints he tells me his cough is improved Vital signs : Please see below. GENERAL: Disheveled elderly man appears older than stated sitting up in bed he does not appear to be in acute distress HEENT: Disheveled poor indentation some subtle elevation in CVP CARDIOVASCULAR: S1-S2 regular. RESPIRATORY: Some scattered rales throughout no audible wheeze good air movement. ABDOMINAL: Grossly obese significant fluid wave but no tense ascites no EXTREMITIES: Trace edema of the right lower extremity but otherwise no clubbing or cyanosis LABORATORY DATA, IMAGING STUDIES, MICROBIOLOGY: Please see below. Echocardiogram: 1. Study is of fair technical quality. 2. Normal left ventricle (LV) size with mild left ventricular hypertrophy (LVH), atypical septal motion and severe global hypokinesis. Estimated left ventricular ejection fraction (LVEF) approximately 20%. 3. Severe biatrial enlargement. 4. Degenerative abnormalities of aortic and mitral valves but no hemodynamically significant disease. 5. High central venous pressure. 6. Moderately severe pulmonary hypertension. DVT prophylaxis ordered?: Plan to resume home anticoagulation following paracentesis ASSESSMENT AND PLAN: This is a 62-year-old man with cough. PROBLEMS: 1. Cough: Likely related to decompensated severe systolic congestive heart failure. His bone status is markedly improved he is status post 5 L removed from his paracentesis as well as 3 L during hemodialysis. I've spoken with nephrology with acute benefit further from thoracentesis on Monday for persistent right pleural effusion. He has been restarted on his home diuretics as well as metoprolol. 2. Ascites: Improved following paracentesis serum ascites albumin gradient suggestive of ascites secondary to portal hypertension previously pathology was negative cell counts are not suggestive of SBP. He does have an elevated INR slightly as well as thrombocytopenia ultrasound is suggestive of cirrhosis however the etiology is not clear perhaps secondary to congestive hepatopathy chronically could consider further workup on the outpatient setting this does appear to be his second hospitalization in a relatively short period of time for decompensation. 3. Chronic right lower extremity edema: Patient denies knowing any etiology duplex this visit has been negative for any DVT 4. End-stage renal disease on hemodialysis: Appreciate nephrology services help his regular dialysis days are Monday 5. Diabetes he is on a renal consistent carb diet with 1500 mL fluid restriction 6. Mood disorder: Continue with sertraline 7. Dyslipidemia: Continue with his home statin 8. Anemia of end-stage renal disease: Acceptable continue to monitor 9. Thrombocytopenia: Likely related to underlying cirrhosis appears to be stable he is on anticoagulation 11. Abnormal troponin: No concerning EKG changes I suspect likely some demand ischemia related to decompensated systolic congestive heart failure may benefit from further outpatient ischemia workup 12. Atrial fibrillation: He is anticoagulated with Eliquis as well as rate c ontrolled with a beta joel DISPOSITION: Pending clinical improvement. Thoracentesis Monday [facility] VS, I&O, 24H, Fishbone Vital Signs/I&O Vital Signs Date Time Temp Pulse Resp B/P (MAP) Pulse Ox O2 Delivery O2 Flow Rate FiO2 04/14/18 06:00 97.7 86 19 103/65 (78) 96 04/12/18 01:45 Room Air I&O- Last 24 Hours up to 6 AM 04/14/18 06:00 Intake Total 960 ml Output Total 3000 ml Balance -2040 ml Laboratory Data 24H LABS Laboratory Tests 2 04/13/18 13:28: Bedside Glucose (Misc Panel) 100 04/13/18 16:56: Bedside Glucose (Misc Panel) 115 04/13/18 20:01: Bedside Glucose (Misc Panel) 93 04/14/18 07:12: Nucleated Red Blood Cells % (auto) 0.0, Anion Gap 8, Glomerular Filtration Rate 19.8L, Blood Urea Nitrogen 21H, Creatinine 3.36H, Sodium Level 139, Potassium Level 3.4L, Chloride Level 102, Carbon Dioxide Level 29, Calcium Level 7.7L 04/14/18 11:45: Bedside Glucose (Misc Panel) 160H CBC/BMP Laboratory Tests 04/14/18 07:12 Red Blood Count 3.53 L, Mean Corpuscular Volume 98.0 H, Mean Corpuscular Hemoglobin 32.3, Mean Corpuscular Hemoglobin Concent 32.9, Red Cell Distribution Width 14.7 H, Calcium Level 7.7 L Microbiology Microbiology 04/11/18 Blood Culture - Preliminary, Resulted No Growth after 48 hours. All Specime... 04/11/18 Blood Culture - Preliminary, Resulted No Growth after 48 hours. All Specime... 04/12/18 Gram Stain - Final, Complete 04/12/18 Body Fluid Culture - Final, Complete 04/12/18 Respiratory Virus Panel (PCR) ([facility]) - Final, Complete KARISSA JC MD Apr 14, 2018 12:20
[2018-04-14 14:00] VITALS: BP 110/76
--- NOTE | 2018-04-14 18:44 | IPN ---
DATE: 04/14/2018 Mr. Weber is seen this morning on his bedside. He is eating breakfast at time of my visit. He was dialyzed yesterday, and we removed about 3 liters of fluid, which he tolerated very well. His chest x-ray did show pulmonary vascular congestion. Prior to this, he also had paracentesis done on April 12, and 5 liters of fluid was removed with paracentesis. The patient denies any nausea or vomiting. His cough and shortness of breath have improved. He denies any nausea or vomiting. PHYSICAL EXAMINATION: Temperature 97.7 degrees Fahrenheit, heart rate 86 per minute, respiratory rate 18 per minute, blood pressure 103/65 mm of mercury, and oxygen saturation 96% on room air. His head is atraumatic. There is no jugular venous distention (JVD) or thyroid enlargement. Neck is supple, and trachea is midline. Heart sounds are irregular in rhythm with systolic murmur grade 1/6. There is no pericardial friction rub. Lungs have diminished breath sounds at bases with bibasilar rales. Abdomen is soft, and large amount of ascites is present. Dressing at the site of paracentesis is intact. Extremities have no cyanosis or clubbing. Neurologically, he is at his baseline mentation. Today's labs show WBC count 6.2, hemoglobin 11.4, hematocrit 34.6., platelets 121. Sodium 139, potassium 3.4, CO2 of 29, BUN 21, and creatinine 3.36. PROBLEMS: 1. End-stage renal disease. The patient was dialyzed yesterday, and he tolerated dialysis treatment well. 2. Chronic systolic congestive heart failure in the setting of end-stage renal disease. His volume status was quite decompensated. We removed 3 liters of fluid yesterday, and we will plan to perform an ultrafiltration for 2 hours today and try to remove another 2 liters of fluid today. 3. Hypokalemia. This is mild and likely to improve without any intervention. The patient should be allowed regular potassium diet. 4. Cirrhosis of liver with recurrent ascites. Etiology of his cirrhosis is uncertain; however, he does have documented cirrhosis with recurrent ascites and has required a paracentesis in the past. He had another paracentesis done on April 12 and still has some ascites present. The patient is likely to require paracentesis every couple of weeks. 5. Anemia. At this point his anemia is stable and does not need any urgent intervention.
[2018-04-14] MEDS: CHOLESTYRAMINE 4 GM PWD PKT PO SCH (21:00)
[2018-04-14] MEDS: METOPROLOL SUCC (TopROL XL) 50MG **XL** TAB PO SCH (21:00)
[2018-04-14] MEDS: ATORVASTATIN 10 MG TAB PO SCH (21:33)
[2018-04-14 22:00] VITALS: BP 110/66
[2018-04-15 06:00] VITALS: BP 102/73
[2018-04-15 06:48] LABS: HEMATOCRIT 34.2 % (42.0-52.0); HEMOGLOBIN 11.2 g/dl (13.5-17.5); MEAN CORPUSCULAR HEMOGLOBIN 31.6 pg (27.0-33.0); MEAN CORPUSCULAR HGB CONC 32.7 g/dl (32.0-36.5); MEAN CORPUSCULAR VOLUME 96.6 fl (80.0-96.0); PLATELET COUNT, AUTOMATED 122 10^3/uL (150-450); RED BLOOD COUNT 3.54 10^6/uL (4.30-6.10); WHITE BLOOD COUNT 7.4 10^3/uL (4.0-10.0)
[2018-04-15 07:07] LABS: CALCIUM LEVEL 7.7 MG/DL (8.8-10.2); CREATININE FOR GFR 4.13 MG/DL (0.70-1.30); GLOMERULAR FILTRATION RATE 15.6 (>49); POTASSIUM SERUM 3.3 MEQ/L (3.5-5.1)
[2018-04-15] MEDS: HumaLOG INSULIN (NovoLOG) PER UNIT SC SCH ×4 (07:16→21:00)
[2018-04-15] MEDS ORDERED: POTASSIUM CHLORIDE 10 MEQ SR TABLET PO ONE (07:30)
[2018-04-15] MEDS: guaiFENesin ER 600 MG TAB PO SCH ×2 (08:05→21:01)
[2018-04-15] MEDS: PANTOPRAZOLE 40MG TAB (PROTONIX) PO SCH (08:05)
[2018-04-15] MEDS: APIXABAN 2.5 MG TAB (ELIQUIS) PO SCH ×2 (08:05→21:00)
--- NOTE | 2018-04-15 08:36 | IPNPDOC ---
Date Seen The patient was seen on 04/15/18. Progress Note SUBJECTIVE: Patient tells me that he had an episode of diarrhea but otherwise has no complaints at this time. Cough continues to improve. Vital signs : Please see below. GENERAL: Disheveled elderly man appears older than stated sitting up in bed he does not appear to be in acute distress HEENT: Disheveled poor indentation some subtle elevation in CVP CARDIOVASCULAR: S1-S2 regular. RESPIRATORY: SCTA b/l ABDOMINAL: Grossly obese significant fluid wave but no tense ascites no EXTREMITIES: no edema no clubbing or cyanosis LABORATORY DATA, IMAGING STUDIES, MICROBIOLOGY: Please see below. Echocardiogram: 1. Study is of fair technical quality. 2. Normal left ventricle (LV) size with mild left ventricular hypertrophy (LVH), atypical septal motion and severe global hypokinesis. Estimated left ventricular ejection fraction (LVEF) approximately 20%. 3. Severe biatrial enlargement. 4. Degenerative abnormalities of aortic and mitral valves but no hemodynamically significant disease. 5. High central venous pressure. 6. Moderately severe pulmonary hypertension. DVT prophylaxis ordered?: Plan to resume home anticoagulation following paracentesis ASSESSMENT AND PLAN: This is a 62-year-old man with cough. PROBLEMS: 1. Cough: resolving, Likely related to decompensated severe systolic congestive heart failure. His volume status is markedly improved he is status post 5 L removed from his paracentesis as well as 3 L during hemodialysis and then anoth er 2L yesterday. I've spoken with nephrology I will check a CXR Monday AM and re-eval his Rt pleural effusion, if it persists he may benefit further from thoracentesis on Monday. He has been restarted on his home diuretics as well as metoprolol. 2. Ascites: Improved following paracentesis serum ascites albumin gradient suggestive of ascites secondary to portal hypertension previously pathology was negative cell counts are not suggestive of SBP. He does have an elevated INR slightly as well as thrombocytopenia ultrasound is suggestive of cirrhosis however the etiology is not clear perhaps secondary to congestive hepatopathy chronically could consider further workup on the outpatient setting this does appear to be his second hospitalization in a relatively short period of time for decompensation. 3. Chronic right lower extremity edema:resolved 4. End-stage renal disease on hemodialysis: Appreciate nephrology services help his regular dialysis days are Monday 5. Diabetes he is on a renal consistent carb diet with 1500 mL fluid restriction 6. Mood disorder: Continue with sertraline 7. Dyslipidemia: Continue with his home statin 8. Anemia of end-stage renal disease: Acceptable continue to monitor 9. Thrombocytopenia: Likely related to underlying cirrhosis appears to be stable he is on anticoagulation 11. Abnormal troponin: No concerning EKG changes I suspect likely some demand ischemia related to decompensated systolic congestive heart failure may benefit from further outpatient ischemia workup 12. Atrial fibrillation: He is anticoagulated with Eliquis as well as rate controlled with a beta joel DISPOSITION: Pending clinical improvement. POssibly Thoracentesis Monday then back to [facility] Monday VS, I&O, 24H, Fishbone Vital Signs/I&O Vital Signs Date Time Temp Pulse Resp B/P (MAP) Pulse Ox O2 Delivery O2 Flow Rate FiO2 04/15/18 06:00 98.6 90 19 102/73 (83) 95 04/12/18 01:45 Room Air I&O- Last 24 Hours up to 6 AM 04/15/18 06:00 Intake Total 1580 ml Output Total 2000 ml Balance -420 ml Laboratory Data 24H LABS Laboratory Tests 2 04/14/18 11:45: Bedside Glucose (Misc Panel) 160H 04/14/18 17:03: Bedside Glucose (Misc Panel) 77L 04/14/18 21:17: Bedside Glucose (Misc Panel) 135H 04/15/18 06:35: Nucleated Red Blood Cells % (auto) 0.0, Anion Gap 9, Glomerular Filtration Rate 15.6L, Blood Urea Nitrogen 31H, Creatinine 4.13H, Sodium Level 137, Potassium Level 3.3L, Chloride Level 102, Carbon Dioxide Level 26, Calcium Level 7.7L CBC/BMP Laboratory Tests 04/15/18 06:35 Red Blood Count 3.54 L, Mean Corpuscular Volume 96.6 H, Mean Corpuscular Hemoglobin 31.6, Mean Corpuscular Hemoglobin Concent 32.7, Red Cell Distribution Width 14.5, Calcium Level 7.7 L Microbiology Microbiology 04/11/18 Blood Culture - Preliminary, Resulted No Growth after 72 hours. All specime... 04/11/18 Blood Culture - Preliminary, Resulted No Growth after 72 hours. All specime... 04/12/18 Gram Stain - Final, Complete 04/12/18 Body Fluid Culture - Final, Complete 04/12/18 Respiratory Virus Panel (PCR) ([facility]) - Final, Complete KARISSA JC MD Apr 15, 2018 08:36
[2018-04-15] MEDS: SPIRONOLACTONE 25 MG TAB PO SCH ×2 (13:09→21:01)
[2018-04-15] MEDS: TORSEMIDE 20 MG TAB PO SCH (13:11)
[2018-04-15] MEDS: NEPHRO-VIT TAB (NEPHROCAPS) PO SCH (13:12)
[2018-04-15] MEDS: SERTRALINE HCL 25 MG TABLET PO SCH (13:13)
[2018-04-15] MEDS: ATORVASTATIN 10 MG TAB PO SCH (21:01)
[2018-04-15] MEDS: CHOLESTYRAMINE 4 GM PWD PKT PO SCH (21:01)
[2018-04-15] MEDS: METOPROLOL SUCC (TopROL XL) 50MG **XL** TAB PO SCH (21:01)
[2018-04-15 22:00] VITALS: BP 118/77
[2018-04-16] MEDS: APIXABAN 2.5 MG TAB (ELIQUIS) PO SCH ×2 (05:59→20:39)
[2018-04-16 06:00] VITALS: BP 110/76
[2018-04-16] MEDS: guaiFENesin ER 600 MG TAB PO SCH ×2 (06:00→20:39)
--- NOTE | 2018-04-16 06:28 | IPN ---
DATE OF VISIT: 04/15/2018 HISTORY OF PRESENT ILLNESS: Mr. Weber is seen this morning on his bedside. He is feeling well and denies any new complaints. He does have chronic ascites and underwent a paracentesis last week. Five liters of fluid was removed with significant improvement in his symptoms. He also has pleural effusion, large on the right side and small on the left. He denies any dyspnea or chest pain at present. His appetite is poor and he does not eat very well but denies any nausea or vomiting. PHYSICAL EXAMINATION: Vital signs: Temperature 98.6 degrees Fahrenheit, heart rate 90 per minute and respiratory rate 18 per minute. Blood pressure 102/73 mmHg and oxygen saturation 95% on room air. Head: Atraumatic. Neck: Neck is supple and jugular venous distention (JVD) is mildly elevated. There is no oral thrush or ulcers. Heart: Sounds are regular with systolic murmur grade 2/6. Lungs: Diminished breath sounds at the lower one-third. Abdomen: The abdomen is distended with ascites but not very tense. Bowel sounds are normal. Dressing at the site of paracentesis is still intact and dry. Extremities: No cyanosis or clubbing. Neurologically: He is at his baseline mentation. LABORATORY DATA: Today's labs showed WBC count 7.4, hemoglobin 11.2 and hematocrit 34.2, platelets 122. Sodium 137, potassium 3.3, CO2 26, BUN 31 and creatinine 4.13. Calcium level 7.7. PROBLEMS: 1. End-stage renal disease. The patient was last dialyzed on Monday. He had an extra ultrafiltration yesterday and we removed an additional 2 liters of fluid. Three liters was removed on Monday so a total of 5 liters fluid has been removed with dialysis. He also had a paracentesis done and 5 liters were removed with paracentesis. His weight is down by 10 kg. The patient will be scheduled for dialysis again tomorrow. 2. Hypokalemia. This is related to poor oral intake and dialysis. We will give him a supplement of potassium 20 mEq by mouth today. Electrolytes will be checked again tomorrow morning. 3. Cirrhosis of liver with recurrent ascites. The patient does have ascites and is likely to require paracentesis again in the next couple of weeks which can be done as an outpatient. 4. Chronic systolic congestive heart failure and pleural effusions. The patient has known history of severe systolic congestive heart failure and bilateral pleural effusions, large on the right side. He can benefit from a thoracentesis and we will keep trying our efforts to remove as much fluid with dialysis as he can tolerate. 5. Chronic hypotension. This is a major limiting factor for aggressive fluid removal as his blood pressure has been chronically low. He remains on midodrine which should be continued. He is also on chronic diuretic therapy which I am not sure if it is helping as his urine output is minimal.
[2018-04-16] MEDS: HumaLOG INSULIN (NovoLOG) PER UNIT SC SCH ×4 (07:30→21:00)
--- NOTE | 2018-04-16 08:14 | REP ---
Clinical: Follow up right pleural effusion. Comparison: 04/14/2018 Findings: Cardiomegaly with evidence for pulmonary edema again appreciated. Moderate bilateral pleural effusions may be slightly increased from prior examination. No pneumothorax. Prior sternotomy and pacemaker. Skeletal structures intact. Impression: Pulmonary edema pattern. Moderate bilateral pleural effusions may be slightly increased. Electronically Signed by Hipolito Yan MD 04/16/2018 08:05 A
[2018-04-16] MEDS ORDERED: HEPARIN 1,000 UNITS/ML 10ML VIAL (FOR RADIOLOGY& DIALYSIS ONLY) IV ONE (11:00)
[2018-04-16 11:03] LABS: HEMATOCRIT 34.6 % (42.0-52.0); HEMOGLOBIN 11.2 g/dl (13.5-17.5); MEAN CORPUSCULAR HEMOGLOBIN 31.4 pg (27.0-33.0); MEAN CORPUSCULAR HGB CONC 32.4 g/dl (32.0-36.5); MEAN CORPUSCULAR VOLUME 96.9 fl (80.0-96.0); PLATELET COUNT, AUTOMATED 146 10^3/uL (150-450); RED BLOOD COUNT 3.57 10^6/uL (4.30-6.10); WHITE BLOOD COUNT 7.9 10^3/uL (4.0-10.0)
[2018-04-16 11:32] LABS: CALCIUM LEVEL 7.8 MG/DL (8.8-10.2); CREATININE FOR GFR 5.51 MG/DL (0.70-1.30); GLOMERULAR FILTRATION RATE 11.2 (>49)
[2018-04-16] MEDS: TORSEMIDE 20 MG TAB PO SCH (12:00)
[2018-04-16] MEDS: SPIRONOLACTONE 25 MG TAB PO SCH ×2 (12:00→20:41)
[2018-04-16 15:30] VITALS: BP 111/72
--- NOTE | 2018-04-16 15:39 | IPNPDOC ---
Date Seen The patient was seen on 04/16/18. Progress Note SUBJECTIVE: Patient tells me that he has had no further episodes of diarrhea his cough continues to improve he tells me he feels well enough to go home he has no complaints at this time Vital signs : Please see below. GENERAL: Disheveled elderly man appears older than laying flat in bed he does not appear to be in acute distress HEENT: Disheveled poor indentation some subtle elevation in CVP CARDIOVASCULAR: S1-S2 regular. RESPIRATORY: Clear to auscultation bilaterally ABDOMINAL: Grossly obese significant fluid wave but no tense ascites no EXTREMITIES: no edema no clubbing or cyanosis LABORATORY DATA, IMAGING STUDIES, MICROBIOLOGY: Please see below. Echocardiogram: 1. Study is of fair technical quality. 2. Normal left ventricle (LV) size with mild left ventricular hypertrophy (LVH), atypical septal motion and severe global hypokinesis. Estimated left ventricular ejection fraction (LVEF) approximately 20%. 3. Severe biatrial enlargement. 4. Degenerative abnormalities of aortic and mitral valves but no hemodynamically significant disease. 5. High central venous pressure. 6. Moderately severe pulmonary hypertension. DVT prophylaxis ordered?: Plan to resume home anticoagulation following paracentesis ASSESSMENT AND PLAN: This is a 62-year-old man with cough. PROBLEMS: 1. Cough: resolving, Likely related to decompensated severe systolic congestive heart failure. His volume status is markedly improved he is status post 5 L removed from his paracentesis as well as 3 L during hemodialysis and then another 2L yesterday. I've spoken with nephrology given that he is laying flat asymptomatic requiring no oxygen I will hold off on any thoracentesis at this time we'll attempt at fluid removal during hemodialysis with the help of midodrine he may have be able to keep his morning status better optimize this way should this effusion fail to resolve could consider outpatient thoracentesis 2. Ascites: Improved following paracentesis serum ascites albumin gradient suggestive of ascites secondary to portal hypertension previously pathology was negative cell counts are not suggestive of SBP. He does have an elevated INR slightly as well as thrombocytopenia ultrasound is suggestive of cirrhosis however the etiology is not clear perhaps secondary to congestive hepatopathy chronically could consider further workup on the outpatient setting this does appear to be his second hospitalization in a relatively short period of time for decompensation. 3. right lower extremity edema:resolved 4. End-stage renal disease on hemodialysis: Appreciate nephrology services help his regular dialysis days are Monday 5. Diabetes he is on a renal consistent carb diet with 1500 mL fluid restriction 6. Mood disorder: Continue with sertraline 7. Dyslipidemia: Continue with his home statin 8. Anemia of end-stage renal disease: Acceptable continue to monitor 9. Thrombocytopenia: Likely related to underlying cirrhosis appears to be stable he is on anticoagulation 11. Abnormal troponin: No concerning EKG changes I suspect likely some demand ischemia related to decompensated systolic congestive heart failure may benefit from further outpatient ischemia workup 12. Atrial fibrillation: He is anticoagulated with Eliquis as well as rate controlled with a beta joel DISPOSITION: Possibly back to [facility] tomorrow VS, I&O, 24H, Fishbone Vital Signs/I&O Vital Signs Date Time Temp Pulse Resp B/P (MAP) Pulse Ox O2 Delivery O2 Flow Rate FiO2 04/16/18 06:00 97.6 88 20 110/76 (87) 99 04/12/18 01:45 Room Air I&O- Last 24 Hours up to 6 AM 04/16/18 06:00 Intake Total 1200 ml Output Total 0 ml Balance 1200 ml Laboratory Data 24H LABS Laboratory Tests 2 04/15/18 16:56: Bedside Glucose (Misc Panel) 84 04/15/18 19:46: Bedside Glucose (Misc Panel) 120H 04/16/18 09:17: Bedside Glucose (Misc Panel) 97 04/16/18 10:40: Nucleated Red Blood Cells % (auto) 0.0, Anion Gap 9, Glomerular Filtration Rate 11.2L, Blood Urea Nitrogen 46H, Creatinine 5.51H, Sodium Level 139, Potassium Level 4.0#, Chloride Level 104, Carbon Dioxide Level 26, Calcium Level 7.8L CBC/BMP Laboratory Tests 04/16/18 10:40 Red Blood Count 3.57 L, Mean Corpuscular Volume 96.9 H, Mean Corpuscular Hemoglobin 31.4, Mean Corpuscular Hemoglobin Concent 32.4, Red Cell Distribution Width 14.5, Calcium Level 7.8 L Microbiology Microbiology 04/11/18 Blood Culture - Preliminary, Resulted No Growth after 72 hours. All specime... 04/11/18 Blood Culture - Preliminary, Resulted No Growth after 72 hours. All specime... 04/12/18 Gram Stain - Final, Complete 04/12/18 Body Fluid Culture - Final, Complete 04/12/18 Respiratory Virus Panel (PCR) ([facility]) - Final, Complete KARISSA JC MD Apr 16, 2018 15:39
[2018-04-16] MEDS: NEPHRO-VIT TAB (NEPHROCAPS) PO SCH (16:04)
[2018-04-16] MEDS: SERTRALINE HCL 25 MG TABLET PO SCH (16:04)
[2018-04-16] MEDS: ATORVASTATIN 10 MG TAB PO SCH (20:38)
[2018-04-16] MEDS: CHOLESTYRAMINE 4 GM PWD PKT PO SCH (20:39)
[2018-04-16 20:40] VITALS: BP 111/74
[2018-04-16] MEDS: METOPROLOL SUCC (TopROL XL) 50MG **XL** TAB PO SCH (20:40)
[2018-04-16 22:00] VITALS: BP 111/74
[2018-04-17 06:00] VITALS: BP 109/65
[2018-04-17 06:18] LABS: HEMATOCRIT 34.8 % (42.0-52.0); HEMOGLOBIN 11.4 g/dl (13.5-17.5); MEAN CORPUSCULAR HEMOGLOBIN 31.5 pg (27.0-33.0); MEAN CORPUSCULAR HGB CONC 32.8 g/dl (32.0-36.5); MEAN CORPUSCULAR VOLUME 96.1 fl (80.0-96.0); PLATELET COUNT, AUTOMATED 161 10^3/uL (150-450); RED BLOOD COUNT 3.62 10^6/uL (4.30-6.10); WHITE BLOOD COUNT 8.1 10^3/uL (4.0-10.0)
--- NOTE | 2018-04-17 06:32 | IPN ---
DATE OF SERVICE: 04/16/2018 SUBJECTIVE: The patient was seen and examined at the bedside today morning. He was having his breakfast when I saw him today morning. Today is patient's day of dialysis. He denies any active complaints at this point. OBJECTIVE: Vital Signs: Temperature 97.6 degrees Fahrenheit. Blood pressure 110/76. Pulse 88. Respiratory rate 20. Saturating 99% on room air. Intake and Output: There is no urine output recorded. Weight on the bed scale is 71.8 kg. PHYSICAL EXAMINATION: General: Patient is awake, alert and oriented times three, laying in bed in no apparent distress. Head and Neck Exam: Extraocular muscles intact. Pupils are equally round and reactive to light. Mucous membranes are moist. Neck is supple. There is mildly elevated jugular venous distention (JVD). Cardiovascular: S1 and S2. Midline sternotomy scar is visible. Left sided AICD is visible and palpable. 1+ edema of the bilateral lower extremities. Respiratory: Chest is clear to auscultation bilaterally. Bilateral equal air entry. No rales or rhonchi. Abdomen: Soft. Positive abdominal wall edema. Mild amount of ascites. Musculoskeletal: No clubbing or cyanosis. Pulses are 2+. Central Nervous System (LEGAL LIBRARIAN): No focal deficit. Power is 5/5 in bilateral upper extremities. Psych: Normal mood and affect. LAB: REVIEW: CBC showed a WBC of 7.9, hemoglobin 11.1, platelets of 146. BMP showed sodium 139, potassium 4, chloride 104, bicarbonate 26, BUN 46, creatinine 5.5, calcium 7.8. CURRENT INPATIENT MEDICATIONS: The patient's medications were all reviewed by me. There is no change in the medications today as compared with yesterday. ASSESSMENT AND PLAN: 1. End stage renal disease. Hemodialysis dependent. The patient's regular dialysis days are Monday, Monday, Monday. I will try to remove at least 3.5 liters of fluid during hemodialysis today. 2. Liver cirrhosis, decompensated with ascites. The patient got the ascitic tap done during this hospitalization. The rest of the fluid management is with hemodialysis. 3. Decompensated systolic congestive heart failure with pleural effusions. The patient got two back to back sessions of hemodialysis and ultrafiltration on Monday and Monday. Further fluid removal will be done during hemodialysis today. Continue low sodium diet. Continue fluid restriction 1.5 liters of fluid per day. Continue current dose of metoprolol 50 mg daily, Spironolactone 25 mg twice a day and torsemide 10 mg daily. 4. Chronic hypotension. It is secondary to severe heart failure. Continue current low dose of metoprolol XL 25 mg daily. If blood pressure stays low, then metoprolol dose will be decreased further. 5. Atrial fibrillation. Heart rate is controlled with metoprolol XL. Continue current dose of Eliquis.
[2018-04-17 06:39] LABS: CALCIUM LEVEL 8.3 MG/DL (8.8-10.2); CREATININE FOR GFR 3.71 MG/DL (0.70-1.30); GLOMERULAR FILTRATION RATE 17.6 (>49); POTASSIUM SERUM 3.6 MEQ/L (3.5-5.1)
[2018-04-17] MEDS: APIXABAN 2.5 MG TAB (ELIQUIS) PO SCH (08:20)
[2018-04-17] MEDS: guaiFENesin ER 600 MG TAB PO SCH (08:20)
[2018-04-17] MEDS: HumaLOG INSULIN (NovoLOG) PER UNIT SC SCH (08:21)
--- NOTE | 2018-04-17 16:45 | HPESKH ---
DATE OF ADMISSION: 04/17/2018 The patient was initially seen on 04/17/18 and re-evaluated by myself and attending physician, Dr. Modi on 04/19/18. HISTORY OF PRESENT ILLNESS: Luis Miguel Weber is a 62-year-old obese white male who returns to the [facility] after a 5 day hospital stay for shortness of breath related to decompensated severe systolic congestive heart failure. During his hospital stay the patient required 5 liters removed via paracentesis and 3 liters and 2 liters via hemodialysis on eulp-ox-kgsc days. Patient was originally admitted to the [facility] on 04/28/2017 for permanent placement after prolonged noncompliance with his dialysis. CODE STATUS: Patient is currently a FULL CODE. He was previously a DO NOT RESUSCITATE DO NOT INTUBATE however at the end of last year converted back to a FULL CODE. PAST MEDICAL HISTORY: 1. End-stage renal disease hemodialysis dependant. Patient attends dialysis Monday, Monday and Fridays in the mornings. 2. Hypertension. 3. Chronic anemia due to end-stage renal disease. 4. Heart failure with a reduced ejection fraction for systolic heart failure. He has an ejection fraction of 20%. There is some mention of combined systolic and diastolic dysfunction in his medical record. 5. Dyslipidemia. 6. History of vascular reflux. 7. CVA with very mild left sided hemiparesis. 8. 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 9. History of brain aneurysm with clippings. 10. Coronary artery disease with a history of CABG surgery in 2009. 11. Morbid obesity. PAST SURGICAL HISTORY: 1. Patient had a cardiac CABG in 2009. 2. He did have a automatic implantable cardioverter defibrillator (AICD) placed in 2009. 3. Brain aneurysm with clipping. Date was unable to be found in the medial record. 4. He does also have an arterial venous fistula in his right arm. Date of placement was not found in the record. SOCIAL HISTORY: Patient is a resident of [facility] since 04/2017. He denies smoking, alcohol use of illicit drug use. The patient does not ambulate and requires the use of a Rene for transfers. MEDICATIONS: Scheduled: 1. Eliquis 2.5 mg twice a day for anticoagulation related to a-fib. 2. Atorvastatin 10 mg at bedtime for hyperlipidemia. 3. Metoprolol succinate 25 mg at bedtime for rate control. 4. Sertraline 25 mg for depression. 5. Spironolactone 25 mg twice a day at 1220 for congestive heart failure. 6. Torsemide 10 mg for hypertension. 7. Multivitamin for supplement and vitamin D 50,000 units by mouth on Saturdays for deficiency. As Needed: 1. Tylenol 325 mg tablets. He can take up to 650 mg by mouth every 4 for pain or fever. 2. Doculax 10 mg for constipation and loperamide for diarrhea. ALLERGIES: Patient does have allergies to egg and egg derived products. His adverse reaction consists of mild GI symptoms. VITALS: Temperature 96.8, pulse 70, respirations 20, blood pressure 109/65 with an arterial pressure of 80, SpO2 96% on room air. PHYSICAL EXAMINATION: GENERAL: Patient is a disheveled man. He is lying flat in bed watching TV and he is alert and awake and in no acute distress. HEENT: Patient's extraocular muscles are intact. The pupils are equal, round and reactive. No sclera icterus is noted. Some JVD however is noted. Patient does have poor dentition. Mucous membranes are moist. CARDIOVASCULAR: S1 and S2 are normal. A sternotomy scar is noted as well as left sided AICD placement. RESPIRATORY: Breath sounds are diminished but he is clear to auscultation bilaterally without any rales or rhonchi. ABDOMEN: Obese, mild fluid wave present. No tense ascites. EXTREMITIES: No edema, clubbing, or cyanosis is noted. Strength is mildly diminished. Strength in right upper and lower extremity. PSYCHE: Mood and affect are normal. PERTINENT IMAGES FROM HIS HOSPITALIZATION: 1. Patient did have an echocardiogram that showed normal left ventricular size with mild left ventricular hypertrophy, severe global hypokinesis, estimated left ventricular ejection of 20% biatrial enlargement was also noted. Degenerative abnormalities of aortic and mitral valves without hemodynamically significant disease. Central venous pressure and moderate to severe pulmonary hypertension. 2. Patient also had a duplex ultrasound which was negative for DVT 3. A chest x-ray the day of discharge which showed pulmonary edema and moderate bilateral pleural effusions. ASSESSMENT AND PLAN: 1. End-stage renal disease. Patient is on hemodialysis dependant. His regular dialysis days are Monday, Monday, and Monday. He does have a followup appointment scheduled in 7 days with nephrology. 2. Liver cirrhosis, decompensated with ascites this was supported by the patient's thrombocytopenia and slightly elevated INR. The patient did have an acidic tap performed in the hospital and the rest of his fluid management was performed with hemodialysis. 3. Ascites secondary to ischemic cardiomyopathy and biventricular heart failure, as previously mentioned patient had 5 liters removed via paracentesis while in the hospital. He has had regular paracentesis over the last 6 months and he is required paracentesis every 6-8 weeks. While in the hospital a serum ascites albumin gradient was measured of 1.4 which is suggestive of ascites secondary to portal hypertension. At this time, we will forego regular scheduled paracentesis to avoid Mr. Weber undergoing unnecessary procedures. His fluid status will be monitored closely. 4. Decompensated systolic congestive heart failure with pleural effusions. The patient received two days of back to back hemodialysis and ultrafiltration on Monday and Monday while in the hospital. Patient will be continued on a low sodium diet with 1.5 liters of fluid restriction per day as well as his current doses of metoprolol 25 mg daily, spironolactone 25 mg twice a day and torsemide 10 mg daily. Will consider adding an REUBEN-inhibitor in victor manuel of torsemide with the goal of protecting Mr. Weber's cardiac function. 5. Chronic hypotension. Likely secondary to his heart failure. Metoprolol dose was decreased from 50 mg daily to 25 mg daily. 6. Atrial fibrillation. Patient is rate controlled with Metoprolol and is currently on Eliquis for anticoagulation. 7. Mood disorder. We are going to continue his Sertraline. 8. History of DVT. Patient continues on Eliquis. 9. Dyslipidemia. Patient is currently on a statin. 10. Anemia of end stage renal disease. Monitor in the future. 11. Thrombocytopenia. This is likely related to his underlying cirrhosis. The patient is stable on his current anticoagulation. 12. Diabetes. The patient is on a consistent carbohydrate diet with 1500 mL of fluid restriction. He has previously refused diabetic medication in the past. Most recent A1c was measured at dialysis on 01/04/2018 with a value of 5.8. 13. On re-admission to [facility], patient was found to have a stage 2 decubitus ulcer over his coccyx. Optifoam dressings with scheduled changes. My faculty preceptor for this patient encounter was physically present during the encounter and was fully available. All aspects of the patient interview, examination, medical decision making process, and medical care plan development were reviewed and approved by the faculty preceptor. The faculty preceptor is aware and concurs with the plan as stated in the body of this note and will attest to such by his/her cosignature. CLARENCE
--- NOTE | 2018-04-17 17:36 | DSES ---
DATE OF ADMISSION: 04/12/2018 DATE OF DISCHARGE: 04/17/2018 DISCHARGE DIAGNOSES: Decompensated severe systolic congestive heart failure. SECONDARY DIAGNOSES: Liver cirrhosis. End-stage renal disease, on hemodialysis. Diabetes. Mood disorder. Dyslipidemia. Anemia of end-stage renal disease. Thrombocytopenia. Abnormal troponin. Atrial fibrillation. HOSPITAL COURSE: The patient is a 62-year-old man who presented with cough, significant ascites, and he did have some mid elevation in his troponin, which peaked at 0.23 and then trended back down. He should have outpatient followup regarding this. However, he was found to have significantly decompensated systolic congestive heart failure. He had an automatic implantable cardioverter defibrillator (AICD) placed and known to have severe reduction in his ejection fraction (EF). He did have an echocardiogram completed during this stay that revealed an EF of 20%, severe biatrial enlargement and high central venous pressure with moderate severe pulmonary hypertension. He did undergo diuresis with home diuretics; however, his volume status was optimized by five liter removal of ascites. He had paracentesis as well as numerous hemodialysis sessions to remove an additional 8-1/2 liters. His volume status was certainly better optimized following that. There was some discussion as to potentially doing a thoracentesis for a right pleural effusion; however, he was completely asymptomatic. SUBJECTIVE: This morning, the patient tells me that he feels well, and he would like to go home. OBJECTIVE: VITAL SIGNS: Temperature 96.8, pulse 70, respiratory rate 20, blood pressure 109/65, oxygen saturation 96% on room air. GENERAL: He is a disheveled elderly man, appears older than stated age, laying flat in bed. He appears to be in no acute distress, speaking in complete sentences. HEENT: Cranial nerves II-XII are grossly intact. Moist mucous membranes. No elevation of central venous pressure (CVP). CARDIOVASCULAR EXAM: S1, S2 regular. RESPIRATORY EXAM: Actually quite clear. Diminished breath sounds at the bases bilaterally. ABDOMINAL EXAM: He does have position ascites with a positive fluid wave and shifting dullness. EXTREMITIES: No clubbing, cyanosis, or edema. LABORATORY STUDIES: WBC 8.1, hemoglobin 11.4, platelet count 161. Chemistry panel: Sodium 138, potassium 3.6, chloride 103, bicarbonate 30, BUN 29, creatinine 3.7. He did have a paracentesis completed here, which was not suggestive of spontaneous bacterial peritonitis (SBP). Blood cultures were negative. Ascites fluid culture was negative. Respiratory PCR panel was negative. IMAGING: As outlined above. He did have a liver ultrasound that was suggestive of cirrhosis, a Duplex did not reveal any deep vein thrombosis (DVT), and a paracentesis for five liter fluid removal, and a chest x-ray which demonstrated right pleural effusion. ASSESSMENT AND PLAN: This is a 62-year-old man who presented with decompensated severe systolic congestive heart failure. PROBLEMS: 1. Severe systolic congestive heart failure, decompensated. His volume status has been optimized with over 10 liters fluid removal. He is being discharged on metoprolol, spironolactone, torsemide, and close followup. His volume status I suspect will be best optimized by hemodialysis. 2. Liver cirrhosis and ascites. Etiology for cirrhosis remains unclear. He may have some degree of congestive hepatopathy which has led to this; however, he does have significant recurrent ascites, and this was his secondary hospitalization regarding this. He would likely benefit from outpatient paracentesis every couple of weeks. However, I do not see where an etiology has been determined. There was some suspicion in previous documentation that it may have been secondary to alcohol abuse. 3. End-stage renal disease. On hemodialysis. Nephrology's help greatly appreciated. His regular days are Monday, Monday, Monday. 4. Diabetes. He is to be on a renal consistent carbohydrate diet with 1500 mL fluid restriction. 5. Mood disorder. He is to continue on his sertraline. 6. Dyslipidemia. He was continued on a statin. 7. Anemia of end-stage renal disease. Was acceptable. Will monitor. 8. Abnormal troponin. He should have further outpatient workup regarding this through his industrial engineering manager. He likely has some underlying coronary artery disease. 9. Atrial fibrillation. He is anticoagulated with Eliquis and rate controlled with a beta joel. DISPOSITION: He is being discharged back to [facility] where he resides. He is to followup with his primary care provider (PCP) in 7 days and nephrology for regular hemodialysis. His activity is as prior to admission. His diet is a renal, consistent carbohydrate, 1500 mL fluid restriction. He is to return to the emergency room (ER) if symptoms worsen and consider outpatient evaluation for the etiology for his liver cirrhosis. MEDICATIONS AT THE TIME OF DISCHARGE: - Tylenol 650 mg every 4 hours as needed for pain or fever - albuterol nebulizer 2-1/2 mg four times daily - Eliquis 2-1/2 mg twice a day - atorvastatin 10 mg nightly - Dulcolax 10 mg daily as needed for constipation - cholestyramine 4 grams every evening - loperamide 2 mg every 6 hours as needed for diarrhea - metoprolol succinate extended release 50 mg nightly - sertraline 25 mg at noon - Aldactone 25 mg twice a day - torsemide 10 mg at noon - Robitussin 10 mL four times a day as needed for cough - vitamin B complex one tablet daily - vitamin D 50,000 units on Saturdays Greater than 30 minutes spent organizing disposition.
--- NOTE | 2018-04-17 22:17 | IPN ---
DATE: 04/17/2018 SUBJECTIVE: The patient was seen and examined at the bedside. He is afebrile, hemodynamically stable. He was dialyzed yesterday; 3.5 liters of fluid was removed. He tolerated the fluid removal well. He reports that he is getting ready to be discharged back to the long-term today. OBJECTIVE: VITAL SIGNS: Temperature is 96.8 degrees Fahrenheit, blood pressure 109/65, pulse is 70, respiratory rate of 20, saturating 96% on room air. INTAKE/OUTPUT: Urine output is not recorded. Ultrafiltration with hemodialysis was 3.5 liters. Weight on the bed scale is 71.2 kg. PHYSICAL EXAMINATION: GENERAL: The patient is awake, alert, oriented times three, laying in bed, in no apparent distress. HEAD AND NECK EXAM: Extraocular muscles intact. Pupils equally round and reactive to light. Mucous membranes are moist. Neck is supple. There is no jugular venous distention (JVD). CARDIOVASCULAR: S1, S2. Midline sternotomy scar is visible. Left-sided automatic implantable cardioverter defibrillator (AICD) is palpable. No edema of the bilateral lower extremities. RESPIRATORY: Chest is clear to auscultation bilaterally. Bilateral equal air entry. No rales or rhonchi. ABDOMEN: Abdomen is soft. Positive bowel sounds. Mild abdominal wall edema in the flanks. Mild amount of ascites. MUSCULOSKELETAL: No clubbing or cyanosis. Pulses are 2+. CENTRAL NERVOUS SYSTEM: No focal deficit. Power is 5/5 in bilateral upper extremities. LAB REVIEW: CBC showed a WBC of 8.1, hemoglobin 11.4. BMP showed sodium 138, potassium 3.6, chloride 103, bicarbonate 30, BUN 29, creatinine is 3.7. CURRENT INPATIENT MEDICATIONS: The patient's medications were all reviewed by me. There is no change in the medications today as compared with yesterday. ASSESSMENT AND PLAN: 1. End-stage renal disease. Patient's regular hemodialysis days are Monday, Monday, Monday. He was dialyzed yesterday. Next hemodialysis will be done tomorrow as an outpatient. 2. Decompensated systolic congestive heart failure with pleural effusions. The patient has a very low ejection fraction. Volume status is optimized with hemodialysis. 3.5 liters of fluid was removed yesterday. Continue current dose of metoprolol, spironolactone and torsemide. 3. Chronic hypotension. It is secondary to systolic heart failure and use of metoprolol for atrial fibrillation. Patient is asymptomatic at this time. 4. Decompensated cirrhosis with ascites. Patient had ascitic tap done during this hospitalization. The rest of the ascitic taps will be ordered as an outpatient as needed. DISPOSITION: It is OK to discharge the patient from a nephrology standpoint. He will be evaluated as an outpatient now at dialysis center.
== END 2018-04-17 10:55 | DRG 291 ==
LOC: M ED 17:07 → EDBD 17:07 → M ED INP 04-12 00:05 → M PCU 04-12 02:17 → M MS5PR 04-12 16:27
PROVIDERS: ADMIT Hospitalist; ATTEND Internal Medicine
PROC: 0W9G3ZX Drainage of Peritoneal Cavity, Percutaneous Approach, Diagnostic (ICD-10-PCS; principal; 2018-04-12)
PROC: 5A1D70Z Performance of Urinary Filtration, Intermittent, Less than 6 Hours Per Day (ICD-10-PCS; 2018-04-13)
DX: I13.2 Hypertensive heart and chronic kidney disease with heart failure and with stage 5 chronic kidney disease, or end stage renal disease (principal); N18.6 End stage renal disease; I50.23 Acute on chronic systolic (congestive) heart failure; R18.8 Other ascites; K76.6 Portal hypertension; K74.60 Unspecified cirrhosis of liver; I27.20 Pulmonary hypertension, unspecified; I48.91 Unspecified atrial fibrillation; E87.6 Hypokalemia; E11.41 Type 2 diabetes mellitus with diabetic mononeuropathy; F39 Unspecified mood [affective] disorder; D69.6 Thrombocytopenia, unspecified; I95.89 Other hypotension; E11.22 Type 2 diabetes mellitus with diabetic chronic kidney disease; D63.1 Anemia in chronic kidney disease; K21.9 Gastro-esophageal reflux disease without esophagitis; E78.5 Hyperlipidemia, unspecified; E11.42 Type 2 diabetes mellitus with diabetic polyneuropathy; I25.10 Atherosclerotic heart disease of native coronary artery without angina pectoris; Z99.2 Dependence on renal dialysis; Z95.1 Presence of aortocoronary bypass graft; Z86.73 Personal history of transient ischemic attack (TIA), and cerebral infarction without residual deficits; Z95.810 Presence of automatic (implantable) cardiac defibrillator; Z95.0 Presence of cardiac pacemaker; Z91.012 Allergy to eggs

== ENCOUNTER → 2018-04-30 | Outpatient (REF) | payer MEDICARE, MEDICAID ==
[~2018-04-30] MED LIST changes: +ALBU83IN INH; +ATOR1TAB19 PO; +DRIS50003 PO; +ELIQ2.5T PO; +LOPE2CAP PO; +METO1TAB7 PO; +NEPHTAB PO; +QUES4POW PO; +TORS10TA3 PO; +TUSSLIQ3 PO
== END ==
LOC: SKLAB7 17:47
PROVIDERS: ATTEND Internal Medicine
DX: N18.6 End stage renal disease (principal); R18.8 Other ascites

== ENCOUNTER → 2018-05-05 | Outpatient (REF) | payer MEDICARE, MEDICAID ==
--- NOTE | 2018-05-05 13:52 | REP ---
Chest one-view HISTORY: Congestion Comparison: 04/30/2018 Parenchymal densities are present in the right lower lobe consistent with atelectasis or infiltrate slightly increased compared to the previous study. Small bilateral pleural effusions are present greater on the right than on the left unchanged compared to the previous study. The cardiac silhouette is enlarged. The pulmonary vasculature is normal in appearance. A cardiac pacemaker is present. Impression: 1. Right lower lobe atelectasis or infiltrate increased compared to the previous study. 2. Small bilateral pleural effusions unchanged compared to the previous study. Electronically Signed by Juancarlos Ambrocio MD 05/05/2018 01:44 P
== END ==
LOC: SKLAB7 12:48
PROVIDERS: ATTEND Internal Medicine
DX: R09.81 Nasal congestion (principal); R05 Cough; R91.8 Other nonspecific abnormal finding of lung field

== ENCOUNTER → 2018-05-22 | Outpatient (CLI) | payer MEDICARE, MEDICAID ==
[~2018-05-22] MED LIST changes: +LISI-1046 PO; -LISI2.5T5 PO; +NEPH1TAB11 PO; -NEPHTAB PO; -SERT25TA PO; +SERT25TA85 PO
--- NOTE | 2018-05-22 16:35 | REP ---
Ultrasound-guided paracentesis The procedure was performed under the direct supervision of Dr. Stringer. The risks and benefits of the procedure were explained to the patient and informed consent was obtained. The largest pocket of fluid was localized in the right flank using ultrasound guidance. The skin was prepped and draped in a sterile fashion. 1% lidocaine was used as a local anesthetic. An 8-Tamazight multi side-hole catheter was inserted using trocar technique. 3400 ml of yellow fluid was withdrawn and discarded. The patient tolerated the procedure well and there were no immediate complications. After the appropriate amount of monitored convalescence the patient was discharged from the department. Reviewed by SHARON Velez 05/22/2018 04:09 P Electronically Signed by Chip Stringer MD 05/22/2018 04:27 P
== END ==
LOC: M RADPRO 14:01
PROVIDERS: ATTEND Student in an Organized Health Care Education/Training Program
DX: R18.8 Other ascites (principal)

== ENCOUNTER → 2018-06-26 | Outpatient (REF) | payer MEDICARE, MEDICAID ==
[~2018-06-26] MED LIST changes: +ACET1TAB55 PO; +ANEC4CRE3 TOP; +FLEEENE12 PR; +LOSA25TA14 PO; +METO1TAB32 PO; +TESS100C PO
--- NOTE | 2018-06-26 14:44 | REP ---
REASON: Dyspnea and cough. COMPARISON: Multiple, the latest, 05/05/2018, also portable. The technique utilized in obtaining the radiograph has magnified the cardiac silhouette and accentuated the interstitial markings. The right lower lobe patchy opacity with cardiophrenic angle and costophrenic angle blunting is unchanged. Once again, there is a diffuse increase in the interstitial markings throughout the lung cheney. Note is again made of cardiomegaly accentuated by technique with previous median sternotomy. The single chamber bipolar pacemaker device is unchanged. The lung cheney are hypo-expanded further accentuating the findings. IMPRESSION: Bilateral lower lobe opacities, right greater than left, essentially unchanged from the prior exam and seen in conjunction with diffusely increased interstitial markings also stable. Possible congestive heart failure with concomitant pneumonia/asymmetric congestive heart failure/bilateral effusions with possible bilateral atelectatic change. All of this appears essentially stable compared to the prior exam. I cannot rule out the possibility of acute disease superimposed by chronic change. Consider PA and lateral views of the chest if possible. Electronically Signed by Curtis Gillespie DO 06/26/2018 03:46 P
== END ==
LOC: SKLAB7 13:34
DX: R91.8 Other nonspecific abnormal finding of lung field (principal); R05 Cough; R06.02 Shortness of breath

== ENCOUNTER 2018-06-27 02:40 | Emergency (ER) | payer MEDICARE, MEDICAID ==
[~2018-06-27] VITALS: Ht 175.3 cm; Wt 84.5 kg
[~2018-06-27 02:40] MED LIST changes: -ACET1TAB55 PO; -ANEC4CRE3 TOP; -FLEEENE12 PR; -LOSA25TA14 PO; -METO1TAB32 PO; -TESS100C PO
[2018-06-27] MEDS ORDERED: ANEC4CRE3 TOP (03:15)
[2018-06-27] MEDS ORDERED: METO1TAB32 PO (03:15)
[2018-06-27] MEDS ORDERED: ACET1TAB55 PO (03:15)
[2018-06-27] MEDS ORDERED: LOSA25TA14 PO (03:15)
[2018-06-27] MEDS ORDERED: TESS100C PO (03:15)
[2018-06-27] MEDS ORDERED: FLEEENE12 PR (03:15)
[2018-06-27 04:37] VITALS: BP 128/82
[2018-06-27] MEDS ORDERED: methylPREDNISolone INJ 125 MG/2 ML VIAL (J2930) IM ONE (04:45)
--- NOTE | 2018-06-27 08:20 | REP ---
CHEST: X-RAY: Two views. 03:46 a.m. film. HISTORY: Dyspnea and cough. COMPARISON STUDY: June 26, 2018 at 02:00 p.m. FINDINGS: Cardiomegaly is again observed with pacemaker in place. Prior sternotomy wires are seen. EKG electrodes are noted. There are small bilateral pleural effusions, right greater than left. Pulmonary vasculature is cephalized. Interstitial markings are mildly prominent but somewhat improved from yesterday's radiograph. IMPRESSION: CHF pattern with interstitial edema has slightly improved. Electronically Signed by Akash Li MD 06/27/2018 03:36 P
--- NOTE | 2018-06-27 20:26 | ECGEPIP ---
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
== END 2018-06-27 04:56 | disposition home or self-care (01) ==
LOC: M ED 02:40
DX: J44.9 Chronic obstructive pulmonary disease, unspecified (principal)

== ENCOUNTER 2018-06-27 06:27 | Inpatient (IN) | payer MEDICARE, MEDICAID ==
[~2018-06-27] VITALS: Ht 175.3 cm; Wt 80.6 kg
[2018-06-27] VITALS (11 sets, daily range): BP systolic 102–118; BP diastolic 66–79; O2SAT 94–100
[~2018-06-27 06:27] MED LIST changes: +ACET1TAB55 PO; +ANEC4CRE3 TOP; +FLEEENE12 PR; +LOSA25TA14 PO; +METO1TAB32 PO; +TESS100C PO
[2018-06-27] MEDS ORDERED: ONDANSETRON 4MG/2ML VIAL (J2405) IV ONE (06:45)
[2018-06-27 07:12] LABS: BASO # 0.1 10^3/uL (0.0-0.2); BASO % 0.8 % (0.0-1.0); EOS # 0.2 10^3/uL (0.0-0.50); EOS % 2.5 % (0.0-3.0); HEMOGLOBIN 12.1 g/dl (13.5-17.5); LYMPH # 0.6 10^3/uL (1.5-4.5); LYMPH % 7.7 % (24.0-44.0); MEAN CORPUSCULAR HEMOGLOBIN 31.5 pg (27.0-33.0); MEAN CORPUSCULAR HGB CONC 31.8 g/dl (32.0-36.5); MONO # 0.5 10^3/uL (0.0-0.8); NEUTROPHILS # 6.3 10^3/uL (1.8-7.7); NEUTROPHILS % 82.5 % (36.0-66.0); PLATELET COUNT, AUTOMATED 131 10^3/uL (150-450); RED BLOOD COUNT 3.84 10^6/uL (4.30-6.10); WHITE BLOOD COUNT 7.6 10^3/uL (4.0-10.0)
[2018-06-27 07:26] LABS: ABG BASE EXCESS -0.7 (-2.0-2.0); ABG HCO3 24.9 MEQ/L (22.0-26.0); ABG O2 SATURATION 95.7 % (95.0-99.0); ABG PARTIAL PRESSURE O2 85.2 mmHg (75.0-100.0); ABG STANDARD HCO3 23.8 MEQ/L (22.0-26.0); ABG TOTAL CO2 26.3 MEQ/L (23.0-31.0); ABG pH (ARTERIAL) 7.361 UNITS (7.350-7.450)
[2018-06-27] MEDS ORDERED: IPRATROPIUM 0.5MG/ALBUTEROL 2.5MG INH SOL UD 3ML (DUONEB)(J7620) NEB ONE (07:30)
[2018-06-27 07:55] LABS: ALBUMIN 3.2 GM/DL (3.2-5.2); BILIRUBIN,DIRECT 0.5 MG/DL (0.0-0.2); BILIRUBIN,TOTAL 0.9 MG/DL (0.2-1.0); CALCIUM LEVEL 8.7 MG/DL (8.8-10.2); CREATININE FOR GFR 4.43 MG/DL (0.70-1.30); FREE T4 1.64 NG/DL (0.76-1.46); GLOMERULAR FILTRATION RATE 14.4 (>49); MB/CK RELATIVE INDEX 6.63 (< OR =4); POTASSIUM SERUM 3.8 MEQ/L (3.5-5.1); THYROID STIMULATING HORMONE 3.3 uIU/ML (0.358-3.740); TOTAL PROTEIN 6.6 GM/DL (6.4-8.2); TROPONIN I 0.08 NG/ML (< 0.10)
--- NOTE | 2018-06-27 08:10 | REP ---
CT BRAIN WITHOUT CONTRAST: HISTORY: Altered mental status. COMPARISON HEAD CT STUDY: November 27, 2016. CT FINDINGS: Digital preliminary elevator operator radiograph demonstrates metallic coil material in the suprasellar region. The patient is apparently status post embolization therapy for merino aneurysm. Bony calvarium is intact. Visualized paranasal sinuses are clear. Vascular calcifications noted in distal vertebral and distal internal carotid arteries bilaterally. There is a generalized volume loss again noted unchanged. There is no evidence of intracranial hemorrhage. No mass, acute infarct, extra-axial fluid collection or midline shift is seen. There is a small zone of subcortical white matter low density in the left posterior frontal lobe region unchanged from prior CT studies. IMPRESSION: Status post embolic coil therapy for merino aneurysm. Mild diffuse atrophy and vascular calcification. Small vessel changes. No acute intracranial abnormality. Electronically Signed by Akash Li MD 06/27/2018 03:36 P
--- NOTE | 2018-06-27 08:15 | REP ---
Chest x-ray: Two views. 7:29 a.m. film. History: Shortness of breath. Comparison chest x-ray: June 27, 2018, 3:46 a.m. Findings: EKG monitoring electrodes overlie the chest. A unipolar pacemaker is seen in the right heart via the left side as before. Cardiomegaly is again observed unchanged. There are pleural effusions bilaterally right a little larger than left also unchanged. Pulmonary vasculature is cephalized and interstitial markings are slightly prominent consistent with mild edema. This is somewhat improved from the June 26, 2018 film. Impression: CHF pattern with bilateral effusions and pulmonary vascular congestion. Mild diffuse interstitial edema somewhat improved from yesterday's radiograph. Electronically Signed by Akash Li MD 06/27/2018 03:36 P
[2018-06-27] MEDS ORDERED: ACETAMINOPHEN TAB 650MG DOSE (2X325MG) PO PRN (09:00)
[2018-06-27] MEDS ORDERED: BENZONATATE 100 MG CAP PO PRN (09:00)
[2018-06-27] MEDS: NEPHRO-VIT TAB (NEPHROCAPS) PO SCH (09:00)
[2018-06-27] MEDS ORDERED: BISACODYL 10 MG SUPP PR PRN (09:00)
[2018-06-27] MEDS ORDERED: LOPERAMIDE 2 MG CAP PO PRN (09:00)
--- NOTE | 2018-06-27 09:56 | HPEPDOC ---
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 He was was evaluated emergency department and sent home. Patient return to the emergency department at approximately 0630 after complaining of continued shortness of breath and vomiting on his way to [facility]. On arrival, patient appeared lethargic, reported difficulty breathing, and denied any chest pain. Patient was afebrile, pulse of 93, respiratory rate of 26, blood pressure 123/82 and a pulse ox reading of 82% on room air. EKG was performed that demonstrated a known history of atrial fibrillation at a rate of 91 bpm. Laboratory analysis demonstrated a white cell count of 7.6, a BNP of 120,710. Arterial blood gas did not demonstrate any abnormalities. Chest x-ray demonstrated changes consistent with CHF, vascular congestion and bilateral effusions. Given the patient's previous neurological complaints, a head CT was performed which demonstrated no acute intracranial abnormality. Patient was given a DuoNeb treatment without much relief. Family medicine attending and resident were contacted and an further evaluation and management. PAST MEDICAL HISTORY: 1. End-stage renal disease, hemodialysis dependent, HD on MW mornings 2. Hypertension 3. Chronic anemia secondary to end-stage renal disease 4. Heart failure with reduced ejection fraction, EF of 20% 5. Dyslipidemia 6. history of vascular reflux 7. CVA with mild left-sided hemiparesis 8. Type 2 diabetes with accompanying nephropathy and neuropathy 9. History of brain aneurysm with clippings 10. Coronary artery disease with history of CABG surgery in 2009 11. Morbid obesity 12. Cirrhosis with decompensated ascites PAST SURGICAL HISTORY: 1. Cardiac CABG in 2009 2. Patient did have an automatic implantable cardioverter defibrillator placed in 2009 3. Brain aneurysm with clipping, date unknown 4. AV fistula placement in patient's right arm, date unknown SOCIAL HISTORY: -Patient is currently a resident of [facility]. He was admitted in 04/2017 for permanent placement after prolonged noncompliance with his outpatient dialysis. He denies any history of smoking, alcohol use or illicit drug use. Patient is nonambulatory, and requires the use of a Rene for his transfers. FAMILY HISTORY: -Noncontributory given patient's advanced age ALLERGIES: -Documented adverse reaction of GI upset to egg and egg derived products -Please see below for more information. REVIEW OF SYSTEMS: CONSTITUTIONAL: Patient denies any subjective fevers or chills. HEENT: Patient reports chronic difficulty hearing appears bilaterally. Denies any headaches, changes in vision, difficulty swallowing. Denies recent nasal congestion or rhinorrhea. CARDIOVASCULAR: Patient denies any chest pain or pressure or discomfort. Denies palpitations. RESPIRATORY: Reports progressively worsening shortness of breath over the last 34 days. Not improved with nebulizer treatments. Reports nonproductive cough of same duration. GASTROINTESTINAL: Reports nausea and vomiting this morning while on his way to dialysis. GENITOURINARY: Patient reports not making urine SKIN: Denies any rashes, new or resolving skin lesions MUSCULOSKELETAL: Denies any new musculoskeletal aches or pains NEUROLOGICAL: Patient complaining of subjective left-sided weakness PSYCHIATRIC: Reports history of depression, currently treated with medication ENDOCRINE: Reports history of diabetes, not currently utilizing medications, A1c of 5.8 HOME MEDICATIONS: -Acetaminophen 650 mg by mouth every 4 hour when necessary for pain and fever -Albuterol 2.5 mg every 6 hours when necessary for shortness of breath -Atorvastatin 10 mg by mouth daily at bedtime. Dyslipidemia -Tessalon Perles 100 mg by mouth twice a day when necessary for cough -Dulcolax 10 mg when necessary for constipation -Fleet enema when necessary for constipation -Loperamide 2 mg by mouth every 6 hour when necessary for diarrhea -Vitamin D supplementation 50,000 units by mouth weekly, Saturdays at 1100, for hypovitaminosis D -Lidocaine 4% cream, topical twice a day when necessary to be applied to patient's right lower abdomen -Losartan 25 mg by mouth daily, to be taken at 1200, hold if systolic blood pressure less than 90 mmHg, for heart failure -Torsemide 10 mg by mouth daily, to be taken at 1200, for CHF -Sertraline 25 mg by mouth daily, to be taken at 1200, for mood -Multivitamin by mouth daily, to be taken at 1200, 4 supplementation PHYSICAL EXAMINATION: VITAL SIGNS: Temperature 96.8, pulse 89, respiratory rate 18, blood pressure 103/57 (72), pulse oximetry 96% on 4 L of oxygen via nasal cannula GENERAL APPEARANCE: Patient appears fatigued, easily arousable, oriented 3, lay ing comfortably/quietly in his emergency room bed, wearing hospital gown and does not appear in acute distress HEENT: Normocephalic, atraumatic, EOMI, PERRLA, sclera are nonicteric, poor dentition noted CARDIOVASCULAR: Irregular rate and rhythm LUNGS: Bibasilar crackles appreciated, no wheezing, fair air movement ABDOMEN: Protuberant, distended and obese, nontender to palpation, pending fluid noted in patient's lower right side, bowel sounds present in all quadrants, slightly increased from previous examinations MUSCULOSKELETAL: he is able to move all extremities equally and bilaterally EXTREMITIES: 2+ pitting edema in the lower extremity bilaterally, no calf tenderness NEUROLOGICAL: No facial droop appreciated, speech is non-aphasic, strength 5/5 in upper right-sided extremity, mild 4/5 left upper extremity weakness, unchanged from previous examinations PSYCHIATRIC: Mood and affect are appropriate LABORATORY DATA: See below. IMAGING: Chest XR (06/26/18): Bilateral lower lobe opacities, right greater than left, essentially unchanged from the prior exam and seen in conjunction with diffusely increased interstitial markings also stable. Possible congestive heart failure with concomitant pneumonia/asymmetric congestive heart failure/bilateral effusions with possible bilateral atelectatic change. All of this appears essentially stable compared to the prior exam. Unable to rule out the possibility of acute disease superimposed by chronic change. Consider PA and lateral views of the chest if possible. Chest XR (06/27/18): CHF pattern with bilateral effusions and pulmonary vascular congestion. Mild diffuse interstitial edema somewhat improved from yesterday's radiograph. Head CT (06/27/18): Status post embolic coil therapy for Ortiz aneurysm. Mild diffuse atrophy and vascular calcification. Small vessel changes. No acute intracranial abnormality. MICROBIOLOGY: Please see below. ASSESSMENT: Luis Miguel Weber is a 62-year-old white male, past medical history significant for heart failure with reduced ejection fraction, hypertension, dyslipidemia, CHF, cirrhosis with decompensated ascites, end-stage renal disease with hemodialysis dependency, presented to the emergency department the morning of 06/27/18 complaining of increasing shortness of breath, vomiting. Chest x-ray was performed which indicated changes consistent with CHF. ProBNP was measured to be greater than 120K. Patient's vitals remained stable with saturations above 95% on 4 L of oxygen via nasal cannula. Inpatient family medicine team was contacted for admission and further care. PLAN: CHF exacerbation 2/2 to heart failure -Patient see HF exacerbation is likely secondary to his heart failure and exacerbated by his lack of dialysis this morning. -Continuous pulse oximetery -X-ray raised the question of infiltrate. Patient is afebrile and without an elevated white count. Procalcitonin pending. -Suspect improvement pending dialysis this afternoon. -Repeat CBC and BMP tomorrow to monitor for improvement Nausea -Resolved at the time of admission -Suspect potential aspiration with subsequent oxygen desaturation. End-stage renal disease -Patient is hemodialysis dependent. He regularly receives dialysis on the mornings of Monday/Monday/Monday. -He did not receive dialysis this morning due to his current condition -Nephrology consulted and patient will be scheduled for dialysis later today. -Continue to monitor BMP daily Liver cirrhosis, decompensated with ascites -Patient underwent paracentesis on 05/10/17 removal of 3.3 L. -Fluid was negative for malignancy and demonstrated scattered mesothelial cells with lymphocytes Cardiomyopathy and biventricular failure -AICD placed Chronic hypotension -Continue home metoprolol for rate control. -Beta joel to be held for any systolic pressure below 90 mmHg Atrial fibrillation -Tele monitoring -Rate control with metoprolol. Rate of 89 bpm on admission. -Patient has history of cirrhosis with decompensated ascites. Given this, patient likely is also suffering from some degree of esophageal varices. -Patient's Eliquis was discontinued last month after a detailed discussion with the patient regarding the risks and benefits of prolonged anticoagulation for A. fib versus risk of esophageal bleeds. Patient was in agreement with discontinuing of Eliquis while referral to GI is placed. The after mentioned conversation was documented in the patient's chart. Diabetes -Patient previously treated for diabetes with medical therapy. However he declined further medication use to treat his diabetes. -Last A1c of 5.8. Mood disorder -Continue patient on home sertraline DVT Prophylaxis: Teds and sequentials CODE STATUS: FULL CODE Vital Signs Vital Signs Date Time Temp Pulse Resp B/P (MAP) Pulse Ox O2 Delivery O2 Flow Rate FiO2 06/27/18 07:17 89 18 103/57 (72) 96 Nasal Cannula 4.0 06/27/18 06:33 96.8 Laboratory Data Labs 24H Laboratory Tests 2 06/27/18 06:55: Immature Granulocyte % (Auto) 0.5, White Blood Count 7.6, Red Blood Count 3.84L, Hemoglobin 12.1L, Hematocrit 38.0L, Mean Corpuscular Volume 99.0H, Mean Corpuscular Hemoglobin 31.5, Mean Corpuscular Hemoglobin Concent 31.8L, Red Cell Distribution Width 14.6H, Platelet Count 131L, Neutrophils (%) (Auto) 82.5H, Lymphocytes (%) (Auto) 7.7L, Monocytes (%) (Auto) 6.0H, Eosinophils (%) (Auto) 2.5, Basophils (%) (Auto) 0.8, Neutrophils # (Auto) 6.3, Lymphocytes # (Auto) 0.6L, Monocytes # (Auto) 0.5, Eosinophils # (Auto) 0.2, Basophils # (Auto) 0.1, Nucleated Red Blood Cells % (auto) 0.0, Anion Gap 11, Glomerular Filtration Rate 14.4L, Calcium Level 8.7L, Aspartate Amino Transf (AST/SGOT) 38H, Alanine Aminotransferase (ALT/SGPT) 40, Alkaline Phosphatase 158H, Total Bilirubin 0.9, Direct Bilirubin 0.5H, Total Creatine Kinase 92, Creatine Kinase MB 6.0H, Creatine Kinase MB Relative Index 6.63H, Troponin I 0.08, CK-Zec-A-Type Natriuretic Peptide [id number], Total Protein 6.6, Albumin 3.2, Albumin/Globulin Ratio 0.94L, Thyroid Stimulating Hormone (TSH) 3.300, Free Thyroxine 1.64H 06/27/18 07:01: Blood Gas Bicarbonate Standard 23.8, Arterial Blood pH 7.361, Arterial Blood Partial Pressure CO2 45.0, Arterial Blood Partial Pressure O2 85.2, Arterial Blood Total CO2 26.3, Arterial Blood HCO3 24.9, Arterial Blood Base Excess -0.7, Arterial Blood Oxygen Saturation 95.7 CBC/BMP Laboratory Tests 06/27/18 06:55 Red Blood Count 3.84 L, Mean Corpuscular Volume 99.0 H, Mean Corpuscular Hemoglobin 31.5, Mean Corpuscular Hemoglobin Concent 31.8 L, Red Cell Distribution Width 14.6 H, Neutrophils (%) (Auto) 82.5 H, Lymphocytes (%) (Auto) 7.7 L, Monocytes (%) (Auto) 6.0 H, Eosinophils (%) (Auto) 2.5, Basophils (%) (Auto) 0.8, Neutrophils # (Auto) 6.3, Lymphocytes # (Auto) 0.6 L, Monocytes # (Auto) 0.5, Eosinophils # (Auto) 0.2, Basophils # (Auto) 0.1 Home Medications Scheduled Atorvastatin Calcium (Atorvastatin Calcium) 10 Mg Tab, 10 MG PO QHS Ergocalciferol (Vitamin D2) (Drisdol) 50,000 Unit Cap, 50,000 UNIT PO QWEEK SATURDAYS @ 1100 Losartan Potassium (Losartan Potassium) 25 Mg Tablet, 25 MG PO DAILY TAKES AT 1200, HOLD IF SBP < 90 Metoprolol Succinate (Metoprolol Succinate) 25 Mg Tab.er.24h, 12.5 MG PO QHS HOLD IF SBP < 80 Sertraline Hcl (Sertraline HCl) 25 Mg Tab, 25 MG PO DAILY TAKES AT NOON Torsemide (Torsemide) 10 Mg Tab, 10 MG PO DAILY TAKES AT 1200 Vit B Comp No.3/Folic/C/Biotin (Nephro-Sarah Rx Tablet) 1 Tab Tab, 1 TAB PO DAILY TAKES AT 1200 Scheduled PRN Acetaminophen (Acetaminophen) 325 Mg Tablet, 650 MG PO Q4H PRN for PAIN / FEVER Albuterol Sulf (Albuterol Sulfate) 2.5 Mg/3 Ml Nebu, 2.5 MG INH Q6H PRN for SHORTNESS OF BREATH Benzonatate (Tessalon Perle) 100 Mg Capsule, 100 MG PO BID PRN for COUGH Bisacodyl (Dulcolax) 10 Mg Sup, 10 MG OH DAILY PRN for CONSTIPATION Lidocaine (Anecream) 4% Cream..g., 1 DOSE TOP BID PRN for PAIN APPLY TO RIGHT LOWER ABDOMEN Loperamide HCl (Loperamide) 2 Mg Tab, 2 MG PO Q6H PRN for DIARRHEA Sodium Phosphate,Coffey-Dibasic (Fleet Enema) 133 Ml Enema, 1 MOO OH DAILY PRN for CONSTIPATION Allergies Coded Allergies: Egg Derived (Verified Adverse Reaction, Unknown, Diarrhea, upset stomach , 06/27/18) egg (Verified Adverse Reaction, Unknown, diarrhea, upset stomach, 06/27/18) FRANCISCO CASTILLO DO June 27, 2018 09:55
[2018-06-27] MEDS ORDERED: HEPARIN 1,000 UNITS/ML 10ML VIAL (FOR RADIOLOGY& DIALYSIS ONLY) IV ONE (11:30)
[2018-06-27] MEDS: SERTRALINE HCL 25 MG TABLET PO SCH (16:33)
[2018-06-27] MEDS: LOSARTAN 25 MG TAB PO SCH (16:33)
[2018-06-27] MEDS: TORSEMIDE 10 MG TABLET PO SCH (16:33)
[2018-06-27] MEDS: ALBUTEROL SULFATE 2.5 MG/0.5 ML INH NEB SOLN INH PRN (19:22)
--- NOTE | 2018-06-27 20:27 | ECGEPIP ---
Stationary ECG Study [facility] - ED Test Date: 2018-06-27 Pat Name: YADIEL WAHL Department: Room: [place] [address] Gender: M Doctor Chiropractic: josh : 1955 Requested By: LORAINE TAYLOR Order Number: [id number] Reading MD: Marlin Bird Measurements Intervals [place] Rate: 91 P: [place]: 0 QRS: -41 QRSD: 122 T: 162 QT: 395 QTc: 487 Interpretive Statements ATRIAL FLUTTER/TACHYCARDIA WITH ABERRANT CONDUCTION OR VENTRICULAR PREMATURE COMPLEXES ANTERIOR MYOCARDIAL INFARCTION, AGE INDETERMINATE INFERIOR MYOCARDIAL INFARCTION, PROBABLY OLD SIMILAR 06/27/18 Electronically Signed On 06-27-2018 20:27:20 EDT by Marlin Bird
[2018-06-27] MEDS: ATORVASTATIN 10 MG TAB PO SCH (21:42)
[2018-06-27] MEDS: METOPROLOL SUCC *XL* 12.5MG PER 1/2 TAB (TopROL *XL*) PO SCH (22:03)
[2018-06-28] VITALS (13 sets, daily range): BP systolic 94–117; BP diastolic 52–83; O2SAT 90–100
[2018-06-28] MEDS: ALBUTEROL SULFATE 2.5 MG/0.5 ML INH NEB SOLN INH PRN ×2 (01:49→07:21)
[2018-06-28 05:08] LABS: HEMATOCRIT 37.3 % (42.0-52.0); MEAN CORPUSCULAR HEMOGLOBIN 32.2 pg (27.0-33.0); MEAN CORPUSCULAR HGB CONC 32.2 g/dl (32.0-36.5); PLATELET COUNT, AUTOMATED 122 10^3/uL (150-450); RED BLOOD COUNT 3.73 10^6/uL (4.30-6.10); WHITE BLOOD COUNT 7.2 10^3/uL (4.0-10.0)
[2018-06-28 05:32] LABS: ALBUMIN 2.7 GM/DL (3.2-5.2); BILIRUBIN,TOTAL 0.9 MG/DL (0.2-1.0); CALCIUM LEVEL 8.9 MG/DL (8.8-10.2); CREATININE FOR GFR 3.28 MG/DL (0.70-1.30); GLOMERULAR FILTRATION RATE 20.3 (>49); MAGNESIUM LEVEL 2.2 MG/DL (1.8-2.4); POTASSIUM SERUM 4.2 MEQ/L (3.5-5.1)
[2018-06-28 06:15] LABS: ABG BASE EXCESS 0.2 (-2.0-2.0); ABG HCO3 24.4 MEQ/L (22.0-26.0); ABG PARTIAL PRESSURE CO2 38.2 mmHg (35.0-45.0); ABG PARTIAL PRESSURE O2 106.5 mmHg (75.0-100.0); ABG STANDARD HCO3 24.7 MEQ/L (22.0-26.0); ABG TOTAL CO2 25.6 MEQ/L (23.0-31.0); ABG pH (ARTERIAL) 7.424 UNITS (7.350-7.450)
--- NOTE | 2018-06-28 08:43 | IPNPDOC ---
Text Note Date of Service The patient was seen on 06/28/18. NOTE SUBJECTIVE: Patient was interviewed and examined in his hospital room this morning. Patient was found to be resting comfortably in bed the slightly upright position. No acute distress. Patient is easily arousable to verbal stimuli. He reports subjective improvement in his breathing compared to his admission. He believes the frequency of his cough is also reduced. He is denying any chest pain, chest tightness, shortness of breath or difficulty breathing. He does not have any abdominal pain or discomfort at this time. OBJECTIVE: VITALS: Please see below. Blood pressure has remained stable above 100 systolic. EXAM: GENERAL: Patient found to be resting comfortably in his hospital room watching television. The patient was easily arousable, alert and oriented 3, no acute distress or signs of difficulty breathing HEAD: Normocephalic, atraumatic EENT: PERRLA, EOMI, sclera nonicteric, mucous membranes moist NECK: No lymphadenopathy, no tracheal deviation CARDIAC: Irregular rate and rhythm PULM: Persistent bibasilar crackles, although not as apparent compared to yesterday's examination ABDOMEN: Protuberant, distended and obese, nontender to palpation, pending fluid noted in patient's lower right side, bowel sounds present in all quadrants, unchanged compared to prior examination EXTREMITIES: 2+ pitting edema in the lower extremity bilaterally, no calf tenderness NEURO: No facial droop appreciated, speech is non-aphasic, strength 5/5 in upper right-sided extremity, mild 4/5 left upper extremity weakness, unchanged from prior examination SKIN: No rashes, No new or evolving skin lesions LABORATORY: Please see below. IMAGING: Chest XR (06/26/18): Bilateral lower lobe opacities, right greater than left, essentially unchanged from the prior exam and seen in conjunction with diffusely increased interstitial markings also stable. Possible congestive heart failure with concomitant pneumonia/asymmetric congestive heart failure/bilateral effusions with possible bilateral atelectatic change. All of this appears essentially stable compared to the prior exam. Unable to rule out the possibility of acute disease superimposed by chronic change. Consider PA and lateral views of the chest if possible. Chest XR (06/27/18): CHF pattern with bilateral effusions and pulmonary vascular congestion. Mild diffuse interstitial edema somewhat improved from yesterday's radiograph. Head CT (06/27/18): Status post embolic coil therapy for Ortiz aneurysm. Mild diffuse atrophy and vascular calcification. Small vessel changes. No acute in tracranial abnormality. MICRO: Please see below. ASSESSMENT: Luis Miguel Weber is a 62-year-old white male, past medical history significant for heart failure with reduced ejection fraction, hypertension, dyslipidemia, CHF, cirrhosis with decompensated ascites, end-stage renal disease with hemodialysis dependency, presented to the emergency department the morning of 06/27/18 complaining of increasing shortness of breath, vomiting. Chest x-ray was p erformed which indicated changes consistent with CHF. ProBNP was measured to be greater than 120K. Patient's vitals remained stable with saturations above 95% on 4 L of oxygen via nasal cannula. Inpatient family medicine team was contacted for admission and further care. She was admitted under observation status. Nephrology was consulted who agreed to dialyze the patient, in hospital on 06/27/18 and 06/28/18. If patient continues to report improvement, he will likely be discharged on Monday06/29/18. PLAN: CHF exacerbation 2/2 to heart failure -Patient see HF exacerbation is likely secondary to his heart failure and exacerbated by his lack of dialysis this morning. -Continuous pulse oximetery, patient is saturating at 100% on 3 L of nasal cannula, titrate as appropriate -X-ray raised the question of infiltrate. Patient is afebrile and without an elevated white count. -Pro calcitonin is negative, reducing the likelihood of underlying pneumatic infiltrate. Patient will not be receiving antibiotics. -Per medical record, patient did receive the appropriate heparinization for dialysis yesterday afternoon. However, patient states that he did not receive dialysis. Awaiting note from nephrology. Patient's clinical improvement, however would suggest that he did receive dialysis. -Repeat CBC and BMP tomorrow to monitor for improvement Nausea -Resolved at the time of admission -Suspect potential aspiration with subsequent oxygen desaturation. -Patient denies any nausea upon today's visit End-stage renal disease -Patient is hemodialysis dependent. He regularly receives dialysis on the mornings of Monday/Monday/Monday. -He did not receive dialysis this morning due to his current condition -Nephrology consulted and patient will be scheduled for dialysis later today. -Continue to monitor BMP daily Liver cirrhosis, decompensated with ascites -Patient underwent paracentesis on 05/10/17 removal of 3.3 L. -Fluid was negative for malignancy and demonstrated scattered mesothelial cells with lymphocytes Cardiomyopathy and biventricular failure -AICD placed Chronic hypotension -Continue home metoprolol for rate control. -Beta joel to be held for any systolic pressure below 90 mmHg Atrial fibrillation -Tele monitoring -Rate control with metoprolol. Rate of 89 bpm on admission. -Patient has history of cirrhosis with decompensated ascites. Given this, patient likely is also suffering from some degree of esophageal varices. -Patient's Eliquis was discontinued last month after a detailed discussion with the patient regarding the risks and benefits of prolonged anticoagulation for A. fib versus risk of esophageal bleeds. Patient was in agreement with discontinuing of Eliquis while referral to GI is placed. The aforementioned conversation was documented in the patient's chart. Diabetes -Patient previously treated for diabetes with medical therapy. However he declined further medication use to treat his diabetes. -Last A1c of 5.8. Mood disorder -Continue patient on home sertraline DVT Prophylaxis: Teds and sequentials CODE STATUS: FULL CODE VS,Fishbone, I+O VS, Fishbone, I+O Laboratory Tests 06/28/18 04:18 Red Blood Count 3.73 L, Mean Corpuscular Volume 100.0 H, Mean Corpuscular Hemoglobin 32.2, Mean Corpuscular Hemoglobin Concent 32.2, Red Cell Distribution Width 14.6 H, Calcium Level 8.9, Aspartate Amino Transf (AST/SGOT) 22, Alanine Aminotransferase (ALT/SGPT) 34, Alkaline Phosphatase 138 H, Total Bilirubin 0.9, Total Protein 7.0, Albumin 2.7 L Vital Signs Date Time Temp Pulse Resp B/P (MAP) Pulse Ox O2 Delivery O2 Flow Rate FiO2 06/28/18 04:00 99 Nasal Cannula 3.0 06/28/18 04:00 97.5 78 16 117/83 (94) I&O- Last 24 Hours up to 6 AM 06/28/18 06:00 Intake Total 60 ml Output Total 3000 ml Balance -2940 ml GME ATTESTATION GME ATTESTATION My faculty preceptor for this patient encounter was physically present during the encounter and was fully available. All aspects of the patient interview, examination, medical decision making process, and medical care plan development were reviewed and approved by the faculty preceptor. The faculty preceptor is aware and concurs with the plan as stated in the body of this note and will attest to such by his/her cosignature. COLLIN CASTILLO DO June 28, 2018 08:43
--- NOTE | 2018-06-28 10:13 | CR ---
DATE OF CONSULTATION: 06/27/2018 REQUESTING PHYSICIAN: Dr. Mehrdad Sloan REASON FOR CONSULTATION: Management of end-stage renal disease on hemodialysis in this patient who was admitted with decompensated congestive heart failure. HISTORY OF PRESENT ILLNESS: Luis Miguel Weber is well known to me, he is a 62-year-old male, with a past medical history of end-stage renal disease on hemodialysis on a Monday, Monday, Monday schedule, anemia of chronic renal failure, severe systolic congestive heart failure, ejection fraction of 20%, dyslipidemia, history of CVA, type 2 diabetes, coronary artery disease, and other comorbid conditions mentioned below. Patient came to the emergency room yesterday with a complaint of shortness of breath. He was given some nebulizer treatments and ultimately sent back to the long term. Early this morning he went to this hemodialysis unit for his maintenance treatment at around 6 o'clock in the morning in the hemodialysis unit he was found to be short of breath at rest, hypoxic, and had an episode of nausea and vomiting. He was also noted to be lethargic. Subsequently he was transferred to the ER without dialysis being performed. In the emergency room his pulse oximetry was 82% on room air. His BNP was severely elevated and his chest x-ray showed bilateral effusions and CHF pattern. Patient was admitted for a decompensated congestive heart failure and hypoxemia and nephrology service was consulted for hemodialysis prevision. PAST MEDICAL HISTORY: End-stage renal disease on hemodialysis Monday, Monday, Monday, systolic congestive heart failure, ejection fraction of 20%, hypertension, anemia related to end-stage renal disease, dyslipidemia, history of CVA, type 2 diabetes, history of brain aneurysm, coronary artery disease with history of bypass surgery, cirrhosis with recurrent ascites. PAST SURGICAL HISTORY: Coronary artery bypass graft (CABG) in 2010, automatic implantable cardioverter-defibrillator (AICD) placement, brain aneurysm with clipping, AV fistula placement, multiple paracentesis. ALLERGIES: EGGS. SOCIAL HISTORY: He is a long term patient. There is no present use of smoking, alcohol or illicit drugs. He is non-ambulatory. FAMILY HISTORY: Significant for diabetes and end-stage renal disease. REVIEW OF SYSTEMS: He is not a very good historian. He has been a long term resident due to inability to care for himself at home. He has multiple organ issues including stroke, congestive heart failure, end-stage renal disease, and diabetes. He denies any recent missed hemodialysis treatments. CONSTITUTIONAL: He denies fevers or chills. EARS, NOSE, AND THROAT: He denies rhinorrhea or tinnitus. CARDIAC: Significant for severe systolic congestive heart failure. He reports leg swelling and dyspnea. RESPIRATORY: Positive for shortness of breath. He denies pleuritic type chest pain. GI: Significant for cirrhosis of liver and recurrent ascites and history of paracentesis and also history of prior GI bleed. : Negative for dysuria or hematuria. MUSCULOSKELETAL: Significant for non-ambulatory status and also for leg swelling. NEUROLOGIC: Significant for prior stroke and clipping and brain aneurysm. HEMATOLOGY: Significant for anemia of chronic kidney disease. He is not on chronic anticoagulation. PSYCHOSOCIAL: Significant for poor compliance and depression. ENDOCRINE: Significant for diabetes and secondary hyperparathyroidism. INTEGUMENT: He denies any new rashes or ulcers. PHYSICAL EXAMINATION: VITAL SIGNS: Temperature 97.2, pulse 82, respiratory rate 18, blood pressure 109/66, saturating 100% on 3 liter nasal cannula. Dialysis today removed 3 liters. GENERAL: Patient is seen in the hemodialysis unit receiving his treatment. Appears old than stated age, in no apparent distress. HEENT: Extraocular muscles are intact. Tongue is moist. NECK: Jugular veins are elevated. CARDIAC: Heart sounds S1, S2, irregular. There is 2+ edema in the lower extremities. There is a defibrillator in the left chest wall. LUNGS: Bibasilar crackles. There is no accessory muscle use. He is comfortable on nasal cannula. ABDOMEN: Protuberant. There is ascitic fluid in situ, there are bowel sounds present. MUSCULOSKELETAL: There are 2+ edema in the lower extremities. The right extremity fistula is currently in use. NEUROLOGIC: He is at his baseline mentation. He moves all four extremities on command. He answers simples questions appropriately. PSYCHIATRIC: He has somewhat of a flat affect. LABORATORY DATA: White count 7.6, hemoglobin 12.1, sodium 139, potassium 3.8, bicarbonate 25, BNP 120,000. IMAGING: Chest x-ray June 27 CHF pattern, bilateral pleural effusions. INPATIENT MEDICATIONS: Tylenol as needed, albuterol as needed, atorvastatin 10 mg by mouth at bedtime, Tessalon Perles as needed, losartan 25 mg by mouth daily, metoprolol 12.5 mg by mouth at bedtime, Zofran 4 mg IV times one, Zoloft 25 mg by mouth daily, Nephro-Sarah one tab by mouth daily. PROBLEMS: 1. End-stage renal disease on hemodialysis on Monday, Monday, Monday schedule. Patient was dialyzed today. He is significantly volume overloaded. We removed 3 liters with hemodialysis. His electrolytes are acceptable. I will plan to dialyze him again tomorrow for further correction of this volume status. 2. Decompensated severe systolic congestive heart failure, ejection fraction of 20%, volume status principally regulated via dialysis, 3 liters of fluid were removed today. We will plan to dialyze him again tomorrow. He can subsequently be discharged on Monday morning and followup with his outpatient hemodialysis center for a outpatient dialysis treatment on Monday afternoon at 3 p.m. which has been arranged. Continue oral fluid restriction. 3. Cirrhosis with recurrent ascites. Patient receives paracentesis every few weeks. 4. Anemia related to chronic renal failure. Hemoglobin is actually at target and no intervention is needed at present. Thank you for involving me in the care of Mr. Weber. I will be happy to follow him along with you.
[2018-06-28] MEDS: TORSEMIDE 10 MG TABLET PO SCH (13:14)
[2018-06-28] MEDS: NEPHRO-VIT TAB (NEPHROCAPS) PO SCH (13:14)
[2018-06-28] MEDS: SERTRALINE HCL 25 MG TABLET PO SCH (13:14)
[2018-06-28] MEDS: LOSARTAN 25 MG TAB PO SCH (13:15)
--- NOTE | 2018-06-28 15:03 | REP ---
REASON: Dyspnea. History of congestive heart failure. COMPARISON: Multiple, the latest 06/27/2018. Asymmetric basilar opacities with bilateral calcified angle and cardiophrenic angle blunting status quo seen in conjunction with unchanged cardiomegaly. Single chamber bipolar pacemaker device and previous median sternotomy status quo. There is no change in the osseous structures. IMPRESSION: No change from yesterday. Electronically Signed by Curtis Gillespie DO 06/28/2018 04:08 P
[2018-06-28] MEDS: METOPROLOL SUCC *XL* 12.5MG PER 1/2 TAB (TopROL *XL*) PO SCH (21:00)
[2018-06-28] MEDS: ATORVASTATIN 10 MG TAB PO SCH (22:04)
[2018-06-29] VITALS (7 sets, daily range): BP systolic 99–103; BP diastolic 67–70; O2SAT 99–100
[2018-06-29 04:23] LABS: HEMATOCRIT 36.4 % (42.0-52.0); HEMOGLOBIN 11.3 g/dl (13.5-17.5); MEAN CORPUSCULAR HEMOGLOBIN 31.2 pg (27.0-33.0); MEAN CORPUSCULAR VOLUME 100.6 fl (80.0-96.0); PLATELET COUNT, AUTOMATED 153 10^3/uL (150-450); RED BLOOD COUNT 3.62 10^6/uL (4.30-6.10)
[2018-06-29 04:44] LABS: CALCIUM LEVEL 8.8 MG/DL (8.8-10.2); CREATININE FOR GFR 2.95 MG/DL (0.70-1.30); POTASSIUM SERUM 4.3 MEQ/L (3.5-5.1)
--- NOTE | 2018-06-29 06:46 | IPN ---
DATE OF SERVICE: 06/28/2018 SUBJECTIVE: Luis Miguel is seen and examined this morning in the hemodialysis unit receiving an extra dialysis treatment for his decompensated congestive heart failure. He continues on supplemental oxygen, but he reports his breathing has significantly improved since he was admitted. He denies any chest pain. VITAL SIGNS: Temperature 96.6, pulse 76, respiratory rate 18, blood pressure 99/64, saturating 100% on 3 liters nasal cannula. Intake yesterday was not recorded. Dialysis yesterday removed 3 liters. Dialysis today removed 2 liters. GENERAL: Patient is seen on hemodialysis, awake, alert, receiving his treatment in no distress with comfortable respirations. Extraocular muscles are intact. Tongue is moist. Neck is supple. There is a defibrillator on the left chest wall. CARDIAC: S1 and S2. Heart sounds were distant. There is 2+ edema in the lower extremities. There are compression stockings in place. LUNGS: Show diminished breath sounds at the bases bilaterally with crackle. ABDOMEN: Soft. Nontender. There is some ascitic fluid in situ. The right upper extremity fistula is presently in use. NEUROLOGIC: He is oriented to person, place, situation and is cooperative with the physical exam and interactive. PSYCHIATRIC: He has a flat affect. LABS: White count 7.2, hemoglobin 12.0, platelets 122. Sodium 138, potassium 4.2. Chest x-ray 06/28/2018 with ongoing congestive heart failure pattern. INPATIENT MEDICATIONS: Reviewed by myself and no change from prior. PROBLEMS: 1. End stage renal disease on hemodialysis on a Monday, Monday, Monday schedule. He is receiving an extra dialysis treatment today. We removed 3 liters yesterday. We removed 2 liters today. He is significantly volume overloaded, but his volume status is improving. He can be weaned off of his oxygen I think. His electrolytes are acceptable. His fistula is in good use. [facility] and report to the hemodialysis unit in the afternoon for his Monday treatment. 2. Decompensated severe systolic congestive heart failure. Ejection fraction of 20%. Volume status principally regulated by dialysis, 5 liters were removed in the past 24 hours. Tomorrow is also his dialysis day. We are performing back to back dialysis treatments in view of volume overload. Although his usual dialysis chair time in the outpatient unit is around 6:00 in the morning, the unit can accommodate him instead in the afternoon on Monday, hence, I feel patient can likely be discharged [facility] the [facility] Monday morning and I have communicated that to the primary team. 3. Anemia related to chronic renal failure. Hemoglobin is at goal and no intervention is needed at present.
[2018-06-29] MEDS: TORSEMIDE 10 MG TABLET PO SCH (07:57)
[2018-06-29] MEDS: SERTRALINE HCL 25 MG TABLET PO SCH (07:57)
[2018-06-29] MEDS: LOSARTAN 25 MG TAB PO SCH ×2 (07:57→08:43)
[2018-06-29] MEDS: NEPHRO-VIT TAB (NEPHROCAPS) PO SCH (07:57)
--- NOTE | 2018-06-29 09:39 | DS.PDOC ---
Discharge Summary General Date of Admission June 28, 2018 at 14:46 Date of Discharge June 29, 2018 Primary Care Physician: Trudy Altman DO Attending Physician: Jonathan Ledezma M.D. Specialist/Consultants Involve: RACHEAL VALDEZ DO Discharge Summary PROCEDURES PERFORMED DURING STAY: Patient received 2 rounds of dialysis the first occurring on 06/27/18 and the second 06/28/18. ADMITTING DIAGNOSES: 1. CHF exacerbation 2/2 to heart failure 2. End-stage renal disease, hemodialysis dependent, HD on MWF mornings 3. Atrial fibrillation 4. Cirrhosis with decompensated ascites 5. Hypertension 6. Chronic anemia secondary to end-stage renal disease 7. Heart failure with reduced ejection fraction, EF of 20% 8. Dyslipidemia 9. history of vascular reflux 10. CVA with mild left-sided hemiparesis 11. 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 History of brain aneurysm with clippings 13. Coronary artery disease with history of CABG surgery in 2009 14. Cardiomyopathy with biventricular failure 15. Morbid obesity DISCHARGE DIAGNOSES: 1. CHF exacerbation 2/2 to heart failure 2. End-stage renal disease, hemodialysis dependent, HD on MWF mornings 3. Atrial fibrillation 4. Cirrhosis with decompensated ascites 5. Hypertension 6. Chronic anemia secondary to end-stage renal disease 7. Heart failure with reduced ejection fraction, EF of 20% 8. Dyslipidemia 9. history of vascular reflux 10. CVA with mild left-sided hemiparesis 11. 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 History of brain aneurysm with clippings 13. Coronary artery disease with history of CABG surgery in 2009 14. Cardiomyopathy with biventricular failure 15. Morbid obesity COMPLICATIONS/CHIEF COMPLAINT: CHF Exacerbation. 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 He was was evaluated emergency department and sent back to [facility]. Patient returned to the emergency department at approximately 0630 after complaining of continued shortness of breath and vomiting on his way to dialysis. On arrival, patient appeared lethargic, reported difficulty breathing, and denied any chest pain. Patient was afebrile, pulse of 93, respiratory rate of 26, blood pressure 123/82 and a pulse ox reading of 82% on room air. EKG was performed that demonstrated a known history of atrial fibrillation at a rate of 91 bpm. Laboratory analysis demonstrated a white cell count of 7.6, a BNP of 120,710. Arterial blood gas did not demonstrate any abnormalities. Chest x-ray demonstrated changes consistent with CHF, vascular congestion and bilateral effusions. Given the patient's previous neurological complaints, a head CT was performed which demonstrated no acute intracranial abnormality. Patient was given a DuoNeb treatment without much relief. Family medicine attending and resident were contacted and an further evaluation and management. HOSPITAL COURSE: Once on the floor, patient was seen by nephrology who recommended dialysis. Patient received hemodialysis on 06/27/18 with a removal of 3 L of fluid. Patient also received dialysis on 06/28/18 and a subsequent 2 L were removed. Throughout his hospital stay, patient's breathing continued to improve, and his oxygen requirement diminished. Patient's vitals have stabilized. He is able to return home to [facility] and have scheduled dialysis this afternoon. Discharge plan was discussed with the patient who is in agreement. DISCHARGE MEDICATIONS: Please see below. ALLERGIES: Please see below. PHYSICAL EXAMINATION ON DISCHARGE: VITAL SIGNS: Please see below. GENERAL: Patient found to be resting comfortably in his hospital room. The patient was easily arousable, alert and oriented 3, no acute distress or signs of difficulty breathing HEAD: Normocephalic, atraumatic EENT: PERRLA, EOMI, sclera nonicteric, mucous membranes moist NECK: No lymphadenopathy, no tracheal deviation CARDIAC: Irregular rate and rhythm, systolic ejection murmur heard along left sternal border PULM: Fair air movement, bibasilar crackles appreciated on change in rashes examination. Upper lobes clear to auscultation. ABDOMEN: Protuberant, distended and obese, nontender to palpation, pending fluid noted in patient's lower right side, bowel sounds present in all quadrants, unchanged compared to prior examination EXTREMITIES: 2+ pitting edema in the lower extremity bilaterally, no calf tenderness NEURO: No facial droop appreciated, speech is non-aphasic, strength 5/5 in upper right-sided extremity, mild 4/5 left upper extremity weakness, unchanged from prior examination SKIN: No rashes, No new or evolving skin lesions LABORATORY DATA: Please see below. IMAGING: Chest XR (06/26/18): Bilateral lower lobe opacities, right greater than left, e ssentially unchanged from the prior exam and seen in conjunction with diffusely increased interstitial markings also stable. Possible congestive heart failure with concomitant pneumonia/asymmetric congestive heart failure/bilateral effusions with possible bilateral atelectatic change. All of this appears essentially stable compared to the prior exam. Unable to rule out the possibility of acute disease superimposed by chronic change. Consider PA and lateral views of the chest if possible. Chest XR (06/27/18): CHF pattern with bilateral effusions and pulmonary vascular congestion. Mild diffuse interstitial edema somewhat improved from yesterday's radiograph. Head CT (06/27/18): Status post embolic coil therapy for Ortiz aneurysm. Mild diffuse atrophy and vascular calcification. Small vessel changes. No acute intracranial abnormality. ACTIVITY: As tolerated by physical DIET: Continue previous diet and fluid restriction DISPOSITION: Discharge back to the [facility] DISCHARGE INSTRUCTIONS: 1. Please attend dialysis this afternoon as an outpatient 2. Please continue your medications as prescribed prior to admission 3. Please return to the emergency department should her condition worsen or fail to improve. 4. Thank you for allowing us to participate in her care DISCHARGE CONDITION: Stable TIME SPENT ON DISCHARGE: Greater than 35 minutes. Vital Signs/I&Os Vital Signs Date Time Temp Pulse Resp B/P (MAP) Pulse Ox O2 Delivery O2 Flow Rate FiO2 06/29/18 08:36 3.0 06/29/18 07:55 97.3 79 19 103/70 (81) 100 06/29/18 05:00 Nasal Cannula I&O- Last 24 Hours up to 6 AM 06/29/18 06:00 Intake Total 1000 ml Output Total 2000 ml Balance -1000 ml Laboratory Data Labs 24H Laboratory Tests 2 06/29/18 03:52: Nucleated Red Blood Cells % (auto) 0.0, Anion Gap 5L, Glomerular Filtration Rate 23.0L, Blood Urea Nitrogen 23H, Creatinine 2.95H, Sodium Level 140, Potassium Le rachel 4.3, Chloride Level 102, Carbon Dioxide Level 33H, Calcium Level 8.8 CBC/BMP Laboratory Tests 06/29/18 03:52 Red Blood Count 3.62 L, Mean Corpuscular Volume 100.6 H, Mean Corpuscular Hemoglobin 31.2, Mean Corpuscular Hemoglobin Concent 31.0 L, Red Cell Distribution Width 14.6 H, Calcium Level 8.8 Discharge Medications Scheduled Atorvastatin Calcium (Atorvastatin Calcium) 10 Mg Tab, 10 MG PO QHS, (Reported) Ergocalciferol (Vitamin D2) (Drisdol) 50,000 Unit Cap, 50,000 UNIT PO QWEEK, (Reported) SATURDAYS @ 1100 Losartan Potassium (Losartan Potassium) 25 Mg Tablet, 25 MG PO DAILY, (Reported) TAKES AT 1200, HOLD IF SBP < 90 Metoprolol Succinate (Metoprolol Succinate) 25 Mg Tab.er.24h, 12.5 MG PO QHS, (Reported) HOLD IF SBP < 80 Sertraline Hcl (Sertraline HCl) 25 Mg Tab, 25 MG PO DAILY, (Reported) TAKES AT NOON Torsemide (Torsemide) 10 Mg Tab, 10 MG PO DAILY, (Reported) TAKES AT 1200 Vit B Comp No.3/Folic/C/Biotin (Nephro-Sarah Rx Tablet) 1 Tab Tab, 1 TAB PO DAILY, (Reported) TAKES AT 1200 Scheduled PRN Acetaminophen (Acetaminophen) 325 Mg Tablet, 650 MG PO Q4H PRN for PAIN / FEVER, (Reported) Albuterol Sulf (Albuterol Sulfate) 2.5 Mg/3 Ml Nebu, 2.5 MG INH Q6H PRN for SHORTNESS OF BREATH, (Reported) Benzonatate (Tessalon Perle) 100 Mg Capsule, 100 MG PO BID PRN for COUGH, (Reported) Bisacodyl (Dulcolax) 10 Mg Sup, 10 MG [place] DAILY PRN for CONSTIPATION, (Reported) Lidocaine (Anecream) 4% Cream..g., 1 DOSE TOP BID PRN for PAIN, (Reported) APPLY TO RIGHT LOWER ABDOMEN Loperamide HCl (Loperamide) 2 Mg Tab, 2 MG PO Q6H PRN for DIARRHEA, (Reported) Sodium Phosphate,[place]ridge-Dibasic (Fleet Enema) 133 Ml Enema, 1 MOO [place] DAILY PRN for CONSTIPATION, (Reported) Allergies Coded Allergies: Egg Derived (Verified Adverse Reaction, Unknown, Diarrhea, upset stomach , 06/27/18) egg (Verified Adverse Reaction, Unknown, diarrhea, upset stomach, 06/27/18) COLLIN CASTILLO DO June 29, 2018 09:39
== END 2018-06-29 10:09 | DRG 291 ==
LOC: M ED 06:27 → INTOOBSV 08:54 → M ED INP 08:54 → M PCU 15:25 → OBSVTOIN 06-28 14:46
PROVIDERS: ADMIT Family Medicine; ATTEND Family Medicine
PROC: 5A1D70Z Performance of Urinary Filtration, Intermittent, Less than 6 Hours Per Day (ICD-10-PCS; principal; 2018-06-28)
DX: I13.2 Hypertensive heart and chronic kidney disease with heart failure and with stage 5 chronic kidney disease, or end stage renal disease (principal); N18.6 End stage renal disease; I50.23 Acute on chronic systolic (congestive) heart failure; I69.354 Hemiplegia and hemiparesis following cerebral infarction affecting left non-dominant side; D63.1 Anemia in chronic kidney disease; E78.5 Hyperlipidemia, unspecified; E11.22 Type 2 diabetes mellitus with diabetic chronic kidney disease; E11.21 Type 2 diabetes mellitus with diabetic nephropathy; E11.40 Type 2 diabetes mellitus with diabetic neuropathy, unspecified; I25.10 Atherosclerotic heart disease of native coronary artery without angina pectoris; E66.01 Morbid (severe) obesity due to excess calories; Z99.2 Dependence on renal dialysis; Z95.1 Presence of aortocoronary bypass graft; Z95.810 Presence of automatic (implantable) cardiac defibrillator; Z91.012 Allergy to eggs; Z79.899 Other long term (current) drug therapy; I95.89 Other hypotension; F39 Unspecified mood [affective] disorder; K74.60 Unspecified cirrhosis of liver; I42.9 Cardiomyopathy, unspecified; Z91.14 Patient's other noncompliance with medication regimen; Z91.15 Patient's noncompliance with renal dialysis

== ENCOUNTER → 2018-07-05 | Outpatient (REF) | payer MEDICARE, MEDICAID ==
[2018-07-05 09:16] LABS: HEMOGLOBIN A1c 5.2 %
== END ==
LOC: SKLAB7 08:11
DX: E11.9 Type 2 diabetes mellitus without complications (principal)

== ENCOUNTER → 2018-09-11 | Outpatient (CLI) | payer MEDICARE, MEDICAID ==
[~2018-09-11] MED LIST changes: +FEVE650S3 PR; +MIDO5TA PO
[2018-09-11 15:50] VITALS: BP 110/80
--- NOTE | 2018-09-11 17:10 | REP ---
Ultrasound-guided paracentesis The procedure was performed under the direct supervision of Dr. Stringer. The risks and benefits of the procedure were explained to the patient and informed consent was obtained. The largest pocket of fluid was localized in the right flank using ultrasound guidance. The skin was prepped and draped in a sterile fashion. 1% lidocaine was used as a local anesthetic. An 8-Frisian multi side-hole catheter was inserted using trocar technique. 5500 ml of may colored fluid was withdrawn and discarded. The patient tolerated the procedure well and there were no immediate complications. After the appropriate amount of monitored convalescence the patient was discharged from the department. Reviewed by SHARON Velez 09/11/2018 04:59 P Electronically Signed by Chip Stringer MD 09/11/2018 05:01 P
== END ==
LOC: M IRPRO 14:25
PROVIDERS: ATTEND Physician Assistant
DX: R18.8 Other ascites (principal)

== ENCOUNTER → 2018-10-02 | Outpatient (CLI) | payer MEDICARE, MEDICAID ==
[2018-10-02 14:10] VITALS: BP 116/78
--- NOTE | 2018-10-02 19:26 | REP ---
Ultrasound-guided paracentesis The procedure was performed by SHARON Hobbs, under the direct supervision of Dr. Li. The risks and benefits of the procedure were explained to the patient and informed consent was obtained both verbally and written. Directly prior to the start of the procedure, a formal timeout was completed in the procedure room. Under ultrasound guidance, the largest pocket of fluid in the right flank was localized and skin was marked. The skin was then prepped and draped in a sterile fashion. 5 ml of 1% lidocaine was used as a local anesthetic. Using ultrasound guidance, an 8-Cymro multi side-hole catheter was inserted using trocar technique. 4,600 mL of dark yellow colored fluid was withdrawn and discarded. The patient tolerated the procedure well and there were no immediate complications. After the appropriate monitored convalescence the patient was discharged from the department. Reviewed by SHARON Smith 10/02/2018 02:22 P Electronically Signed by Akash Li MD 10/02/2018 07:16 P
== END ==
LOC: M IRPRO 11:36
PROVIDERS: ATTEND Student in an Organized Health Care Education/Training Program
DX: R18.8 Other ascites (principal)

== ENCOUNTER → 2018-10-25 | Outpatient (REF) | payer MEDICARE, MEDICAID ==
[~2018-10-25] MED LIST changes: +ACET65SU PR; +APAP325T4 PO; +ENEMENE PR; +LIDO1CRE2 TOP; +LOPE1CAP5 PO; +SERT25TA21 PO; -SERT25TA88 PO; +VELP5CHW PO
[2018-10-25 08:23] LABS: HEMATOCRIT 38.7 % (42.0-52.0); HEMOGLOBIN 12.6 g/dl (13.5-17.5); MEAN CORPUSCULAR HEMOGLOBIN 33.2 pg (27.0-33.0); MEAN CORPUSCULAR HGB CONC 32.6 g/dl (32.0-36.5); MEAN CORPUSCULAR VOLUME 101.8 fl (80.0-96.0); PLATELET COUNT, AUTOMATED 161 10^3/uL (150-450); WHITE BLOOD COUNT 9.5 10^3/uL (4.0-10.0)
[2018-10-25 08:40] LABS: INR 1.26; PROTHROMBIN TIME 15.5 SECONDS (11.8-14.0)
== END ==
LOC: SKLAB7 07:13
PROVIDERS: ATTEND Internal Medicine
DX: R18.8 Other ascites (principal)

== ENCOUNTER → 2018-10-30 | Outpatient (CLI) | payer MEDICARE, MEDICAID ==
[~2018-10-30] MED LIST changes: -ACET65SU PR; -APAP325T4 PO; -ENEMENE PR; -LIDO1CRE2 TOP; -LOPE1CAP5 PO; -SERT25TA21 PO; +SERT25TA88 PO; -VELP5CHW PO
[2018-10-30 15:14] VITALS: BP 113/79
--- NOTE | 2018-10-31 10:00 | REP ---
Ultrasound-guided paracentesis The procedure was performed under the direct supervision of Dr. Stringer. The risks and benefits of the procedure were explained to the patient and informed consent was obtained. The largest pocket of fluid was localized in the right flank using ultrasound guidance. The skin was prepped and draped in a sterile fashion. 1% lidocaine was used as a local anesthetic. An 8-Slovak multi side-hole catheter was inserted using trocar technique. 3900 ml of may colored fluid was withdrawn and discarded. The patient tolerated the procedure well and there were no immediate complications. After the appropriate amount of monitored convalescence the patient was discharged from the department. Reviewed by SHARON Velez 10/30/2018 04:38 P Electronically Signed by Chip Stringer MD 10/31/2018 09:50 A
== END ==
LOC: M IRPRO 14:09
DX: R18.8 Other ascites (principal)

== ENCOUNTER → 2018-11-15 | Outpatient (CLI) | payer MEDICARE, MEDICAID ==
--- NOTE | 2018-11-15 09:17 | REP ---
ULTRASOUND ABDOMEN: Real-time sonographic evaluation of the abdomen performed. Gallbladder demonstrates tiny echogenic foci representing sludge or tiny stones. Thickening of the gallbladder wall to 6 mm. There is no intrahepatic or extrahepatic dilatation, common bile duct measuring 6 mm. Liver demonstrates diffuse heterogeneous echo texture with coarsening, compatible with cirrhosis. A cyst in the right lobe measures 1.3 cm in diameter. Length of the liver is 13.8 cm in the mid clavicular line. Pancreas could not be visualized due to overlying bowel gas. Spleen is enlarged measuring 14.2 x 13.5 x 8.5 cm, splenic index is 1629. Right kidney is small in size 7.8 x 4.8 x 4.4 cm with no hydronephrosis. There is a medial cyst 1.1 cm in diameter. Left kidney measures 9.0 x 4.2 x 4.6 cm with no hydronephrosis or mass. Proximal abdominal aorta cannot be visualized due to overlying bowel gas. Mid to distal abdominal aorta is normal in caliber with no aneurysm measuring 2.2 to 2.3 cm in AP dimension. There is diffuse moderate abdominal ascites most significantly in the right upper quadrant. IMPRESSION: Possible tiny gallstones in the gallbladder. There is gallbladder wall thickening likely secondary to ascites. No biliary dilatation. Cirrhotic appearance of the liver with right lobe cyst 1.3 cm. Splenomegaly. Somewhat small size of kidneys particularly the right kidney with no hydronephrosis. Moderate ascites. Electronically Signed by Chip Stringer MD 11/15/2018 09:42 A
== END ==
LOC: M RAD 07:44
PROVIDERS: ATTEND Internal Medicine Gastroenterology
DX: K74.60 Unspecified cirrhosis of liver (principal); K76.89 Other specified diseases of liver; R16.1 Splenomegaly, not elsewhere classified; R18.8 Other ascites

== ENCOUNTER → 2018-11-20 | Outpatient (CLI) | payer MEDICARE, MEDICAID ==
[~2018-11-20] MED LIST changes: +ACET65SU PR; +APAP325T4 PO; +ENEMENE PR; +LIDO1CRE2 TOP; +LOPE1CAP5 PO; +SERT25TA21 PO; -SERT25TA88 PO; +VELP5CHW PO
[2018-11-20 14:41] VITALS: BP 115/63
--- NOTE | 2018-11-20 16:46 | REP ---
Ultrasound-guided paracentesis The procedure was performed under the direct supervision of Dr. Stringer. The risks and benefits of the procedure were explained to the patient and informed consent was obtained. The largest pocket of fluid was localized in the right flank using ultrasound guidance. The skin was prepped and draped in a sterile fashion. 1% lidocaine was used as a local anesthetic. An 8-Pashto multi side-hole catheter was inserted using trocar technique. 3800 ml of dark yellow fluid was withdrawn and discarded. The patient tolerated the procedure well and there were no immediate complications. After the appropriate amount of monitored convalescence the patient was discharged from the department. Electronically Signed by SHARON Velez 11/20/2018 04:13 P Electronically Signed by Chip Stringer MD 11/20/2018 04:37 P
== END ==
LOC: M IRPRO 13:35
PROVIDERS: ATTEND Internal Medicine Nephrology
DX: R18.8 Other ascites (principal)

== ENCOUNTER 2018-12-23 15:35 | Inpatient (IN) | payer MEDICARE, MEDICAID ==
[~2018-12-23] VITALS: Ht 175.3 cm; Wt 78.5 kg
[2018-12-23] MEDS: METOPROLOL SUCC *XL* 12.5MG PER 1/2 TAB (TopROL *XL*) PO SCH
[~2018-12-23 15:35] MED LIST changes: -ACET65SU PR; -APAP325T4 PO; -ENEMENE PR; -LIDO1CRE2 TOP; -LOPE1CAP5 PO; -VELP5CHW PO
[2018-12-23 16:15] LABS: BASO # 0.1 10^3/uL (0.0-0.2); BASO % 0.9 % (0.0-1.0); EOS # 0.2 10^3/uL (0.0-0.5); EOS % 2.2 % (0.0-3.0); HEMATOCRIT 41.3 % (42.0-52.0); HEMOGLOBIN 12.9 g/dl (13.5-17.5); LYMPH # 0.9 10^3/uL (1.5-5.0); LYMPH % 8.4 % (24.0-44.0); MEAN CORPUSCULAR HEMOGLOBIN 32.7 pg (27.0-33.0); MEAN CORPUSCULAR HGB CONC 31.2 g/dl (32.0-36.5); MEAN CORPUSCULAR VOLUME 104.8 fl (80.0-96.0); MONO # 1.1 10^3/uL (0.0-0.8); MONO % 10.8 % (0.0-5.0); PLATELET COUNT, AUTOMATED 176 10^3/uL (150-450); RED BLOOD COUNT 3.94 10^6/uL (4.30-6.10); WHITE BLOOD COUNT 10.4 10^3/uL (4.0-10.0)
[2018-12-23] MEDS: GASTROGRAFIN SOLUTION 30ML PO SCH ×2 (16:43→17:00)
[2018-12-23 16:46] LABS: INFLUENZA A AMPLIFICATION NEGATIVE (NEGATIVE); INFLUENZA B AMPLIFICATION NEGATIVE (NEGATIVE)
[2018-12-23 16:58] LABS: ALBUMIN 2.9 GM/DL (3.2-5.2); BILIRUBIN,DIRECT 0.5 MG/DL (0.0-0.2); BILIRUBIN,TOTAL 1.1 MG/DL (0.2-1.0); CALCIUM LEVEL 8.9 MG/DL (8.8-10.2); CREATININE FOR GFR 3.67 MG/DL (0.70-1.30); GLOMERULAR FILTRATION RATE 17.8 (>49); MB/CK RELATIVE INDEX 5.49 (< OR =4); POTASSIUM SERUM 5.4 MEQ/L (3.5-5.1); TOTAL PROTEIN 6.8 GM/DL (6.4-8.2); TROPONIN I 0.02 NG/ML (< 0.10)
--- NOTE | 2018-12-23 17:02 | REP ---
Clinical: Shortness of breath. Technique: AP and lateral. Findings: Findings are most compatible with CHF and pulmonary edema including cardiomegaly with indistinct pulmonary vasculature, bibasilar atelectasis, and pleural effusions. No pneumothorax. Evidence of prior sternotomy and CABG with pacemaker. Impression: Findings most compatible with CHF and pulmonary edema. Differential diagnosis may include multifocal pneumonia. Electronically Signed by Hipolito Yan MD 12/23/2018 04:53 P
[2018-12-23] MEDS ORDERED: ONDANSETRON 4MG/2ML VIAL (J2405) IV ONE (19:00)
--- NOTE | 2018-12-23 19:18 | REPVR ---
PROCEDURE INFORMATION: Exam: CT Abdomen And Pelvis Without Contrast Exam date and time: 12/23/2018 5:11 PM Clinical history: 63 years old, male; Abdominal pain; Generalized; Additional info: Luq, llq pain TECHNIQUE: Imaging protocol: Computed tomography of the abdomen and pelvis without contrast. Radiation optimization: All CT scans at this facility use at least one of these dose optimization techniques: automated exposure control; mA and/or kV adjustment per patient size (includes targeted exams where dose is matched to clinical indication); or iterative reconstruction. COMPARISON: CT ABD PELVIS W/O CONTRAST 05/09/2017 6:22 PM FINDINGS: Pleural space: Moderate bilateral pleural effusions. Compressive atelectasis both lung bases. Liver: Examination of the liver demonstrates a lobular surface contour, and enlargement of the left and caudate lobes, findings which may be consistent with cirrhosis in the appropriate clinical setting. Stable appearance of a cyst in the right lobe of the liver. Gallbladder and bile ducts: There is a small gallstone present. No evidence of cholecystitis demonstrated. Pancreas: There is diffuse pancreatic atrophy. Spleen: Normal. No splenomegaly. Adrenals: There is bilateral adrenal hyperplasia. Kidneys and ureters: Normal. No hydronephrosis. Stomach and bowel: There is increased feces throughout the colon consistent with constipation. Mild diverticulosis is present in the left colon. No diverticulitis. Appendix: No evidence of appendicitis. Intraperitoneal space: There is a moderate amount of free intraperitoneal fluid present. Vasculature: The aorta demonstrates mild atherosclerotic calcification. Lymph nodes: Unremarkable. No enlarged lymph nodes. Bladder: Unremarkable as visualized. Reproductive: Unremarkable as visualized. Bones/joints: The spine demonstrates mild degenerative changes. Age-indeterminate mild compression deformity of L1 likely chronic. Soft tissues: Recanalized paraumbilical veins. There is soft tissue edema demonstrated in the abdominal wall, flanks and buttock regions consistent with anasarca. IMPRESSION: 1. Examination of the liver demonstrates a lobular surface contour, and enlargement of the left and caudate lobes, findings which may be consistent with cirrhosis in the appropriate clinical setting. Stable appearance of a cyst in the right lobe of the liver. 2. There is a small gallstone present. No evidence of cholecystitis demonstrated. 3. There is diffuse pancreatic atrophy. 4. There is bilateral adrenal hyperplasia. 5. There is increased feces throughout the colon consistent with constipation. 6. There is a moderate amount of free intraperitoneal fluid present. 7. Mild diverticulosis is present in the left colon. No diverticulitis. 8. Anasarca. COMMENT: Consistent with the [employer]'s Incidental Findings Committee Report (J Am Tomi Radiol 2010): Unless the patient's specific circumstances suggest otherwise, any liver lesion 0.5 cm or less, any cystic kidney lesion less than 1.0 cm, and/or any adrenal lesion 1.0 cm or less not otherwise characterized in this report as possessing suspicious or indeterminate imaging features is/are highly likely to be benign and do not require follow-up imaging or biopsy. Electronically signed by: Rafa Pryor On 12/23/2018 19:18:11 PM
[2018-12-23] MEDS ORDERED: FUROSEMIDE 40 MG/4 ML VIAL (J1940) IV ONE (19:30)
[2018-12-23] MEDS ORDERED: cefTRIAXone SOD 1 GM in D5W MINI-BAG PLUS 50 ML IV ONE (19:30)
[2018-12-23] MEDS ORDERED: MIDO5TA PO (20:09)
[2018-12-23] MEDS ORDERED: METO1TAB32 PO (20:09)
[2018-12-23] MEDS ORDERED: ACET65SU PR (20:09)
[2018-12-23] MEDS ORDERED: LOSA25TA14 PO (20:09)
[2018-12-23] MEDS ORDERED: ATOR1TAB19 PO (20:09)
[2018-12-23] MEDS ORDERED: SERT25TA21 PO (20:09)
[2018-12-23] MEDS ORDERED: DULC10SU2 PR (20:09)
[2018-12-23] MEDS ORDERED: ALBU83IN INH (20:09)
[2018-12-23] MEDS ORDERED: NEPH1TAB11 PO (20:09)
[2018-12-23] MEDS ORDERED: VELP5CHW PO (20:09)
[2018-12-23] MEDS ORDERED: APAP325T4 PO (20:09)
[2018-12-23] MEDS ORDERED: LOPE1CAP5 PO (20:09)
[2018-12-23] MEDS ORDERED: LIDO1CRE2 TOP (20:09)
[2018-12-23] MEDS ORDERED: ENEMENE PR (20:09)
[2018-12-23] MEDS ORDERED: DRIS50003 PO (20:09)
[2018-12-23] MEDS ORDERED: ACETAMINOPHEN 650 MG SUPP PR PRN (20:15)
[2018-12-23] MEDS ORDERED: BISACODYL 10 MG SUPP PR PRN (20:15)
[2018-12-23] MEDS ORDERED: BISACODYL 10 MG SUPP PR ONE (20:15)
[2018-12-23] MEDS ORDERED: ALBUTEROL SULFATE 2.5 MG/0.5 ML INH NEB SOLN INH PRN (20:15)
[2018-12-23] MEDS ORDERED: FLEET ENEMA PR PRN (20:15)
[2018-12-23 21:43] VITALS: BP 121/60
[2018-12-23] MEDS: SUCROFERRIC OXYHYDROXIDE 500MG CHEW TAB (VELPHORO) PO SCH (21:50)
[2018-12-23] MEDS: SENOKOT S TAB PO ONE ×2 (21:52→22:40)
[2018-12-23] MEDS ORDERED: SLF 3 ML SYR IV PRN (22:15)
[2018-12-23] MEDS: ATORVASTATIN 10 MG TAB PO SCH (22:18)
[2018-12-24] VITALS: BP 98/72
[2018-12-24 00:49] LABS: CK-MB VALUE MASS 4.8 NG/ML (<3.6); MB/CK RELATIVE INDEX 8.57 (< OR =4); TROPONIN I 0.03 NG/ML (< 0.10)
[2018-12-24 04:00] VITALS: BP 117/71
[2018-12-24 05:34] LABS: HEMATOCRIT 37.8 % (42.0-52.0); HEMOGLOBIN 11.9 g/dl (13.5-17.5); MEAN CORPUSCULAR HEMOGLOBIN 32.8 pg (27.0-33.0); MEAN CORPUSCULAR HGB CONC 31.5 g/dl (32.0-36.5); MEAN CORPUSCULAR VOLUME 104.1 fl (80.0-96.0); PLATELET COUNT, AUTOMATED 153 10^3/uL (150-450); RED BLOOD COUNT 3.63 10^6/uL (4.30-6.10); WHITE BLOOD COUNT 8.3 10^3/uL (4.0-10.0)
[2018-12-24 06:02] LABS: CALCIUM LEVEL 8.9 MG/DL (8.8-10.2); CHOLESTEROL RISK RATIO 1.717 (<5); CK-MB VALUE MASS 4.4 NG/ML (<3.6); CREATININE FOR GFR 3.86 MG/DL (0.70-1.30); GLOMERULAR FILTRATION RATE 16.8 (>49); MB/CK RELATIVE INDEX 9.57 (< OR =4); POTASSIUM SERUM 5.2 MEQ/L (3.5-5.1); THYROID STIMULATING HORMONE 2.99 uIU/ML (0.358-3.740); TROPONIN I 0.02 NG/ML (< 0.10)
[2018-12-24] MEDS: SLF 3 ML SYR IV SCH ×3 (06:17→21:06)
[2018-12-24 08:00] VITALS: BP 101/60
[2018-12-24] MEDS: MIDODRINE 5 MG TAB PO SCH ×3 (08:51→17:54)
--- NOTE | 2018-12-24 09:46 | HPE ---
DATE OF ADMISSION: 12/23/2018 PRIMARY CARE PHYSICIAN: Dr. Altman CHIEF COMPLAINT: Shortness of breath. HISTORY OF PRESENTING ILLNESS: This is a 63-year-old FULL CODE male with history of end-stage renal disease on maintenance hemodialysis, congestive heart failure (CHF) with systolic dysfunction, reduced ejection fraction, ejection fraction (EF) of 20%, cerebral vascular accident (CVA) with left sided hemiparesis, coronary artery bypass grafting (CABG), cirrhosis with monthly paracentesis, presents to the emergency room with a two day history of worsening shortness of breath without cough, fever or chills. He is wheelchair bound, had not noticed any lower extremity edema or change in his weight. He sleeps with 3-4 pillows on his back with shortness of breath when he lies flat. He usually gets paracentesis every Monday of every month, otherwise he denies nausea or vomiting, headache. He complains of left lower quadrant abdominal pain, describes it as crampy without radiation, worse when he tries to get up and move around, better when he sits still. No bright red blood per rectum, melena, black tarry stools. In the emergency room (ER) he was afebrile with no white count or bandemia. Troponin is 0.02. IMAGING: Chest x-ray shows interstitial edema, CHF. The differential includes multifocal pneumonia. CT of the abdomen and pelvis, liver cirrhosis, constipation, moderate amount of free intraperitoneal fluid present, anasarca. Hospitalist service was called to admit for congestive heart failure requiring hemodialysis, as well as evaluation for possible spontaneous bacterial peritonitis (SBP) with left lower quadrant abdominal pain and significant anasarca. Nephrology, Dr. Neal was made aware of the patient's admission and recommended dialysis in the morning and a trial of Lasix stat this evening. PAST MEDICAL HISTORY: 1. Liver cirrhosis with decompensating ascites and multiparacentesis. 2. End-stage renal disease on maintenance hemodialysis Monday, Monday, Monday. 3. Congestive heart failure. 4. Systolic and diastolic dysfunction, ejection fraction of 20%. 5. CAD with CABG 2009. 6. CVA with mild left sided hemiparesis. 7. Type 2 diabetes. 8. Hypertension. 9. Anemia secondary to renal disease. 10. Dyslipidemia. 11. History of brain aneurysm with clipping. 12. Atrial fibrillation, atrial flutter. PAST SURGICAL HISTORY: 1. Arteriovenous (AV) fistula right arm. 2. Brain aneurysm with clipping. 3. Automatic implantable cardio converter-defibrillator (AICD) 2009. 4. CABG 200. HOME MEDICATIONS: - acetaminophen 650 every 4 hours as needed for pain or fever - vitamin D 50,000 units weekly - Lidocaine 5 gram cream topically twice a day as needed for pain - loperamide 2 mg by mouth every 6 hourly as needed for diarrhea - albuterol sulfate 2.5 mg every 6 as needed for shortness of breath - atorvastatin 10 mg nightly - bisacodyl 10 mg suppository as needed for constipation daily - losartan 25 mg daily - metoprolol 12.5 mg nightly - midodrine 5 mg three times a day - sertraline 25 mg daily - sodium phosphate monobasic enema, one enema daily as needed - Velphoro 500 mg twice a day - Nephrovite one tablet by mouth daily ALLERGIES: EGG and EGG DERIVATIVES. SOCIAL HISTORY: The patient is wheelchair bound, lives at [facility]. He is a FULL CODE with cardiopulmonary resuscitation (CPR) trial of intubation. He previously smoked but quit many years ago. He denies any current alcohol or recreational drug use. He usually is wheelchair bound and Rene for transfers. FAMILY HISTORY: Mother and father . Mother in her 80s. Father in his 90s. He has a half brother, half sister, both of whom are . REVIEW OF SYSTEMS: Per history of present illness (HPI), 12-point system otherwise negative. PHYSICAL EXAMINATION: VITAL SIGNS: Temperature 96.2, pulse 78, respirations 19, blood pressure 138/87, 95% on room air. GENERAL: The patient appears to shuffle, appears older than his stated age. He appears emaciated with bitemporal wasting. HEENT: Missing teeth, poor dentition. Dry mucous membranes. Positive jugular venous distention (JVD). No thyromegaly or cervical adenopathy. No pallor, no icterus, no jaundice. Pupils round, and reactive. Face is symmetric. No facial drooping, able to speak in full sentences without conversation dyspnea. LUNGS: Diminished, bilateral rales. Anterior chest, left AICD noted. HEART: S1, S2. Sinus rhythm. No murmurs or rubs, no gallops noted. ABDOMEN: Distended, positive fluid wave, tender left lower quadrant. No rebound or guarding. Positive bowel sounds times four quadrants. No CVA tenderness. EXTREMITIES: Positive pitting edema. NEUROLOGIC: 4/5 strength in the left lower extremity. No facial droop. Fluent speech. No dysmetria on [id number] testing. No pronator drift. Gait was not tested as the patient is wheelchair bound. LABORATORY DATA: White count 10.4, hemoglobin 12, hematocrit 41, platelet count 176. Sodium 139, potassium 5.4, chloride 101, bicarbonate 28, BUN 33, creatinine 3.67, glucose of 111, calcium 8.9, total bilirubin (T-bili) 1.1, direct bilirubin 0.58, AST 41, ALT 35, alkaline phosphatase 178. CK MB 5, relative index of 5.49, troponin 0.02. Total protein 6.8, albumin 2.9, lipase 20. Microbiology, two sets of blood cultures are pending. Chest x-ray: Pulmonary edema. Differential includes multifocal pneumonia. CT of the abdomen and pelvis, liver cirrhosis. Right lobe liver cyst. Small gall stone. Diffuse pancreatic atrophy, bilateral adrenal hyperplasia. Constipation. Moderate amount of free intraperitoneal fluid. Mild diverticulosis, no diverticulitis and anasarca. ASSESSMENT AND PLAN: This is a 63-year-old male with history of liver cirrhosis with monthly paracentesis, end-stage renal disease on maintenance dialysis Monday, Monday, Monday, ischemic cardiomyopathy, history of coronary artery disease (CAD), coronary artery bypass grafting (CABG) 2009 with reduced ejection fraction, (EF) ejection fraction of 20% with automatic implantable cardio converter-defibrillator (AICD), cerebral vascular accident (CVA) with left sided hemiparesis, diabetes, hypertension, brain aneurysm with clipping, anemia of chronic disease, dyslipidemia, vascular reflux, hypertension presents to the emergency room with a two day history of worsening shortness of breath found to be fluid overloaded, congestive heart failure with anasarca in the abdomen and complaints of left lower quadrant. He remains afebrile with no white count. He is admitted for midnights as an inpatient for the following issues: 1. Congestive heart failure with reduced ejection fraction, ejection fraction 20% with prior history of ischemic cardiomyopathy, coronary artery disease (CAD) and CABG in 2009, troponin currently is unremarkable. EKG has no significant change, remains with prior inferior and anterior changes, atrial flutter, ventricular rate of 84 and premature ventricular contractions (PVCs) . He currently is being dialyzed. Nephrology has been consulted to manage dialysis needs on Monday. He has currently been given Lasix 40 mg, check in and out (I and O), daily weights and defer to nephrology for fluid balance. Cardiac markers will be cycled every 8 hourly. Monitor for other ischemic symptoms. The patient does not have any infectious complaints aside from left lower quadrant pain and anasarca. He has been given Ceftriaxone due to concerns for spontaneous bacterial peritonitis (SBP) and paracentesis will be scheduled tomorrow. 2. Liver cirrhosis with monthly paracentesis. Currently afebrile with minimal white count of 10.5, essentially not very significant. He will be given Ceftriaxone however due to concerns of SBP. Paracentesis in the morning. Monitor for any decompensation. 3. History of atrial fibrillation, atrial flutter. Currently rate controlled. Medication list is not available at this time. This will be reconciled by pharmacy but will receive all home medications. 4. End-stage renal disease on maintenance hemodialysis Monday, Monday, Monday. Renal diet. No added salt. Nephrology is being consulted for dialysis needs. 5. Hyperkalemia due to renal disease. This will be corrected with dialysis. 6. Hypertensive heart disease. Resume all home medications. 7. Anemia secondary to end-stage renal disease. Refer to nephrology for iron supplementation. No acute indication for red blood cell transfusion as the current hemoglobin is 12, no signs of active bleeding. Denies bright red blood per rectum, melena, black tarry stools or hematemesis. 8. History of cerebral vascular accident with mild left sided hemiparesis. The patient is Rene lifted at baseline. Wheelchair bound and resides at [facility]. 9. Type 2 diabetes. Insulin sliding scale with coverage, as well as fingersticks every morning and every evening. Check A1c in the morning. 10. History of brain aneurysm with clipping. Currently stable, no neurological issues. Blood pressure is well maintained with systolic pressure of 138 at the bedside. 11. Dyslipidemia. Resume on prior medications. Resume on home dose of statin. 12. Mood disorder. Resume on home dose of Sertraline. 13. Deep venous thrombosis (DVT) prophylaxis with thromboembolic deterrent stockings (TEDs) and sequentials. The patient is not on anticoagulation due to risk of esophageal bleeding in light of liver cirrhosis. 14. CODE STATUS: The patient is currently a FULL CODE, cardiopulmonary resuscitation (CPR) and trial of intubation. edited: 12/23/2018 Johanne LIMA
[2018-12-24] MEDS ORDERED: HEPARIN 1,000 UNITS/ML 10ML VIAL (FOR RADIOLOGY& DIALYSIS ONLY) IV ONE (10:45)
--- NOTE | 2018-12-24 11:31 | CR ---
INITIAL INPATIENT CONSULTATION DATE OF SERVICE: 12/24/2018 REQUESTING PHYSICIAN: Dr. Bessie Ceja CONSULTING PHYSICIAN: Dr. Neal REASON FOR CONSULTATION: Management of end-stage renal disease, hemodialysis and fluid overload. CHIEF COMPLAINT: The patient was sent to the emergency room yesterday from the skilled nursing because of shortness of breath. HISTORY OF PRESENT ILLNESS: Mr. Luis Miguel Weber is a 63-year-old male with past medical history of end-stage renal disease on hemodialysis every Monday, Monday, Monday, chronic systolic congestive heart failure, liver cirrhosis with recurrent ascites, needing monthly taps, and multiple other comorbidities as mentioned below. He was sent from the skilled nursing yesterday because of progressive shortness of breath and as reported in the documentation in the skilled nursing is pulse oximetry was in the 80s. There was no report of fevers or chills. He also had three to four pillow orthopnea. The patient is scheduled to have his paracentesis done this week and he did report abdominal distension and worsening ascites as well. The patient was given a dose of Lasix IV in the emergency room. He was admitted under the hospitalist service and the nephrology service was called for further help in the management of this patient's fluid status and arrangement of hemodialysis. I had already arranged the rubber press tender hemodialysis to be done on the patient today morning. When I saw and evaluated the patient, he was already getting hemodialysis and he was hemodynamically stable. PAST MEDICAL HISTORY: Past medical history of end-stage renal disease on hemodialysis every Monday, Monday, Monday. History of liver cirrhosis. Decompensated ascites. Recurrent monthly ascites taps. Chronic systolic congestive heart failure with LV ejection fraction of around 20%. Coronary artery disease with history of coronary artery bypass grafting (CABG) in 2009. History of cerebrovascular accident (CVA) with left-sided hemiparesis. Diabetes mellitus type 2. Anemia in end-stage renal disease. Hyperlipidemia. History of brain aneurysm in the past. History of atrial fibrillation and atrial flutter in the past. PAST SURGICAL HISTORY: Status post right forearm AV fistula placement. History of aneurysm of the brain, which was clipped in the past. Status post AICD placement in 2009. Status post coronary artery bypass grafting. ALLERGIES: The patient is allergic to egg derived medications. FAMILY HISTORY: No significant family history of end-stage renal disease requiring hemodialysis. SOCIAL HISTORY: The patient is a skilled nursing resident. He is dependent on the Rene lift, he refuses to walk or stand. REVIEW OF SYSTEMS: CONSTITUTIONAL: He denies any fevers or chills. EYES: He denies any blurry vision, double vision. ENT: Denies any dysphagia, odynophagia. CARDIOVASCULAR: He reports orthopnea and dyspnea. RESPIRATORY: He denies any cough or phlegm, but he does report progressive shortness of breath. GASTROINTESTINAL (GI): He reports abdominal distension. GENITOURINARY: He denies any dysuria or hematuria. MUSCULOSKELETAL: He reports muscle weakness and he does not walk. COMMUNITY ENGAGEMENT LEADER: There is a history of CVA with left-sided hemiparesis and the patient is Rene lift dependent. PSYCH: The patient has a depressed mood. HEMATOLOGICAL/ONCOLOGIC: He denies any easy bleeding or bruising. All other review of systems is negative. PHYSICAL EXAMINATION: GENERAL: The patient is awake, alert, oriented times two laying in the bed, getting hemodialysis done. no apparent distress. VITAL SIGNS: Temperature is 97 degrees Fahrenheit, blood pressure 101/60, pulse is 74, respiratory rate of 94, saturating 98% on 3 liters nasal cannula. INTAKE AND OUTPUT: There is no urine output recorded. HEAD AND NECK EXAM: Extraocular muscles intact. Pupils equally round and reactive to light. Mucous membranes are moist. Neck is supple. There is no significant jugular venous distention (JVD). CARDIOVASCULAR: S1, S2 regular rate. 1+ edema of the bilateral lower extremities. RESPIRATORY: Decreased breath sounds bilaterally at the bases, otherwise no active rales or rhonchi. ABDOMEN: Soft, distended with moderate amount of ascites, worse on the right side as compared with left. GENITOURINARY: No hernias were noted. Bladder was palpable. COMMUNITY ENGAGEMENT LEADER: Patient is able to communicate and follow commands. He moves extremities, but otherwise he is Rene lift dependent. PSYCH: He has a depressed mood. SKIN: No rashes or ulcers noted at this time. LABORATORY REVIEW: CBC showed a WBC of 8.3, hemoglobin 11.9, platelets of 153, white cell count on arrival was 10.4. BMP today morning showed sodium 140, potassium 5.2, chloride 105, bicarb 29, BUN 36, creatinine is 3.8, calcium 8.9, TSH is 2.9. Microbiology: Blood cultures are pending. IMAGING STUDIES: A CT scan of the abdomen and pelvis was done yesterday which showed a lobular surface of the liver with enlargement of the left lobe consistent with cirrhosis. Diffuse pancreatic atrophy. Bilateral adrenal hyperplasia. Moderate amount of intraperitoneal fluid. No evidence of diverticulitis. CURRENT INPATIENT MEDICATIONS: The patient was given ceftriaxone 1 gram IV one dose yesterday and he is on 2 grams IV daily. He is on Lipitor 10 mg q.h.s., Dulcolax for constipation, Colace 2 tablets p.o. one dose. He was given Lasix 40 mg IV times one dose. He is on losartan 25 mg p.o. daily, metoprolol succinate 12.5 mg q.h.s., midodrine 5 mg p.o. three times a day, Zofran p.r.n., Zoloft 25 mg p.o. daily, Velphoro 500 mg p.o. twice a day and multivitamin. ASSESSMENT: 63-year-old male with end-stage renal disease on hemodialysis, history of chronic systolic congestive heart failure, CVA with left hemiparesis admitted this time with decompensated congestive heart failure and worsening ascites. PLAN: 1. End-stage renal disease on hemodialysis. The patient's regular dialysis days are Monday, Monday, Monday. He is being at dialyzed according to his schedule. I will try to remove about 1.5 to 2 liters of fluid as tolerated by his blood pressure. 2. Acute decompensated systolic congestive heart failure. The patient has history of CHF with LV ejection fraction of around 20%. History of coronary artery disease as well. Volume status is decompensated however, it is very difficult to remove fluid in this patient because of soft blood pressure. I will try to remove at least 1.5 liters of fluid. The patient also needs to get the ascitic tap done as that would help improve his volume status as well. 3. Liver cirrhosis with ascites. The patient has ascites. He is already supposed to have ascitic tap done this week as an outpatient, but I have ordered the ascitic tap to be done either today or tomorrow morning. He is empirically being covered with ceftriaxone to rule out spontaneous bacterial peritonitis (SBP). Peritoneal fluid cell count and cultures will be sent as well. 4. Hyperkalemia. It is secondary to renal failure and use of losartan. Potassium will improve with dialysis. 5. Anemia in end-stage renal disease. Hemoglobin level is optimal. No need of Aranesp administration at this time. 6. Chronic hypotension. Patient is already on midodrine 5 mg p.o. three times a day. I am going to hold the losartan at this time. Thank you for involving me in the care of this patient. I shall be happy to follow the patient along with you tomorrow morning. MTDD
[2018-12-24] MEDS ORDERED: LOSARTAN 25 MG TAB PO SCH (12:00)
[2018-12-24] MEDS: SUCROFERRIC OXYHYDROXIDE 500MG CHEW TAB (VELPHORO) PO SCH ×2 (12:00→17:54)
[2018-12-24] MEDS: cefTRIAXone SOD 2 GM in D5W MINI-BAG PLUS 50 ML IV SCH (13:52)
[2018-12-24] MEDS: SERTRALINE HCL 25 MG TABLET PO SCH (13:52)
[2018-12-24] MEDS: NEPHRO-VIT TAB (NEPHROCAPS) PO SCH (13:54)
[2018-12-24 14:21] LABS: INR 1.33; PROTHROMBIN TIME 16.2 SECONDS (11.8-14.0)
[2018-12-24 15:44] LABS: FOLATE 13.2 NG/ML (>5.4)
[2018-12-24 16:00] VITALS: BP 110/56
--- NOTE | 2018-12-24 19:22 | IPNPDOC ---
Text Note Date of Service The patient was seen on 12/24/18. NOTE Subjective: -Very tired, seen after HD -No complaints at this time, would really like to take a nap Objective: -Vitals: see below. Afebrile, hemodynamically stable GENERAL: Appears older than his stated age, ill appearing, NAD, drowsy but arousable and awake on voice, AOx3 HEENT: NCAT, with bitemporal wasting, poor dentition, no thyromegaly or cervical adenopathy. PERRLA, EOMI, anicteric LUNGS: Diminished, continues to have bilateral rales in posterior lung cheney, AICD on left noted. HEART: RRR, S1, S2, no noted mrg , JVD above clavice. ABDOMEN: Tender LLQ, distended, +fluid wave, no CVA tenderness. EXTREMITIES: 2+ pitting edema bilaterally to above ankles NEUROLOGIC: Fluent speech, moving all extremities, no facial droop, cranial nerves appear intact, would not cooperate with specific cranial nerve testing because he wanted to sleep PSYCH: irritable, wanted to be left alone to sleep Microbiology, two sets of blood cultures are pending. Chest x-ray: Pulmonary edema. CT A/P: 1. Examination of the liver demonstrates a lobular surface contour, and enlargement of the left and caudate lobes, findings which may be consistent with cirrhosis in the appropriate clinical setting. Stable appearance of a cyst in the right lobe of the liver. 2. There is a small gallstone present. No evidence of cholecystitis demonstrated. 3. There is diffuse pancreatic atrophy. 4. There is bilateral adrenal hyperplasia. 5. There is increased feces throughout the colon consistent with constipation. 6. There is a moderate amount of free intraperitoneal fluid present. 7. Mild diverticulosis is present in the left colon. No diverticulitis. 8. Anasarca. ASSESSMENT AND PLAN: 63-year-old man with history of liver cirrhosis with monthly paracentesis, end-stage renal disease on HD MWF, ischemic cardiomyopathy, history of coronary artery disease (CAD), coronary artery bypass grafting (CABG) 2009 with reduced ejection fraction, (EF) ejection fraction of 20% with automatic implantable cardio converter-defibrillator (AICD), cerebral vascular accident (CVA) with left sided hemiparesis, diabetes, hypertension, brain aneurysm with clipping, anemia of chronic disease, dyslipidemia, vascular reflux, hypertension who presented to the emergency room with a two day history of worsening shortness of breath found to be fluid overloaded, in congestive heart failure with anasarca in the abdomen and complaints of left lower quadrant while afebrile with no leukocytosis. 1. Congestive heart failure with reduced ejection fraction, ejection fraction 20% with prior history of ischemic cardiomyopathy, coronary artery disease (CAD) and CABG in 2009 -negative troponin and EKG had no significant change, remains with prior inferior and anterior changes, atrial flutter, ventricular rate of 84 and premature ventricular contractions (PVCs) at presentation. -s/p Lasix 40 mg on admission -I/Os -daily weights -Nephrology consulted and managing fluid balance, he had HD today. LLQ pain: -remains without infectious complaints aside from left lower quadrant pain and anasarca. -On Ceftriaxone due to concerns for spontaneous bacterial peritonitis (SBP) pend ing paracentesis with studies Liver cirrhosis d/b ascites with monthly paracentesis. -Currently afebrile with minimal white count of 10.5. -Pending paracentesis with IR with SBP r/o studies -Monitor CBC and follow up blood cultures History of atrial fibrillation, atrial flutter. Currently rate controlled. -continuing home meds End-stage renal disease on HD MWF: - Renal diet. -No added salt. -nephrology on board DVT ppx: heparin 5000u Q8H VS,Fishbone, I+O VS, Fishbone, I+O Laboratory Tests 12/24/18 04:52 Vital Signs Date Time Temp Pulse Resp B/P (MAP) Pulse Ox O2 Delivery O2 Flow Rate FiO2 12/24/18 16:00 97.0 74 17 110/56 (74) 98 12/24/18 13:45 Room Air 12/24/18 08:43 2.0 I&O- Last 24 Hours up to 6 AM 12/24/18 06:00 Intake Total 100 ml Output Total 0 ml Balance 100 ml OLINDA RICHARD MD Dec 24, 2018 19:22
[2018-12-24 20:00] VITALS: BP 104/66
[2018-12-24] MEDS: METOPROLOL SUCC *XL* 12.5MG PER 1/2 TAB (TopROL *XL*) PO SCH (21:00)
[2018-12-24] MEDS: ATORVASTATIN 10 MG TAB PO SCH (21:04)
[2018-12-24] MEDS: HEPARIN SOD (PORCINE) 5000 UNITS/ML VIAL SQ SCH (21:05)
[2018-12-24] MEDS ORDERED: ONDANSETRON 4MG/2ML VIAL (J2405) IV PRN (21:30)
[2018-12-25] VITALS (7 sets, daily range): BP systolic 90–115; BP diastolic 40–72
[2018-12-25 05:41] LABS: HEMATOCRIT 39.4 % (42.0-52.0); HEMOGLOBIN 12.2 g/dl (13.5-17.5); MEAN CORPUSCULAR HEMOGLOBIN 32.9 pg (27.0-33.0); MEAN CORPUSCULAR VOLUME 106.2 fl (80.0-96.0); PLATELET COUNT, AUTOMATED 150 10^3/uL (150-450); RED BLOOD COUNT 3.71 10^6/uL (4.30-6.10); WHITE BLOOD COUNT 8.6 10^3/uL (4.0-10.0)
[2018-12-25] MEDS: SLF 3 ML SYR IV SCH ×3 (05:49→21:25)
[2018-12-25] MEDS: HEPARIN SOD (PORCINE) 5000 UNITS/ML VIAL SQ SCH ×4 (05:49→21:25)
[2018-12-25 05:59] LABS: CALCIUM LEVEL 8.6 MG/DL (8.8-10.2); CREATININE FOR GFR 2.82 MG/DL (0.70-1.30); GLOMERULAR FILTRATION RATE 24.1 (>49); POTASSIUM SERUM 4.6 MEQ/L (3.5-5.1)
--- NOTE | 2018-12-25 06:17 | ECGEPIP ---
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
[2018-12-25] MEDS: MIDODRINE 5 MG TAB PO SCH ×3 (08:57→17:07)
[2018-12-25] MEDS: cefTRIAXone SOD 2 GM in D5W MINI-BAG PLUS 50 ML IV SCH (08:57)
--- NOTE | 2018-12-25 11:08 | IPNPDOC ---
Text Note Date of Service The patient was seen on 12/25/18. NOTE Subjective: Continues to complain of left upper and lumber area pain. suspect could be positional as patient always leans on the right and all his ascitis is on the right also. Said had a good bowel movement yesterday Objective: Vitals: see below. Afebrile, hemodynamically stable GENERAL: Appears older than his stated age, ill appearing, AOx3 HEENT: NCAT, with bitemporal wasting, poor dentition, no thyromegaly or cervical adenopathy. PERRLA, EOMI, anicteric LUNGS: Diminished, continues to have bilateral basal crackles in posterior lung cheney, AICD on left noted. HEART: RRR, S1, S2, no noted murmur, gallop or rub. ABDOMEN: Tender LLQ, distended, +fluid wave, no CVA tenderness. EXTREMITIES: 2+ pitting edema bilaterally to above ankles NEUROLOGIC: Fluent speech, moving all extremities, no facial droop, cranial nerves appear intact Labs: Reviewed as below. Microbiology, two sets of blood cultures are pending. Chest x-ray: Pulmonary edema. CT A/P: 1. Examination of the liver demonstrates a lobular surface contour, and enlargement of the left and caudate lobes, findings which may be consistent with cirrhosis in the appropriate clinical setting. Stable appearance of a cyst in the right lobe of the liver. 2. There is a small gallstone present. No evidence of cholecystitis demonstrated. 3. There is diffuse pancreatic atrophy. 4. There is bilateral adrenal hyperplasia. 5. There is increased feces throughout the colon consistent with constipation. 6. There is a moderate amount of free intraperitoneal fluid present. 7. Mild diverticulosis is present in the left colon. No diverticulitis. 8. Anasarca. ASSESSMENT AND PLAN: 63-year-old man with history of liver cirrhosis with monthly paracentesis, end- stage renal disease on HD MWF, ischemic cardiomyopathy, history of coronary artery disease (CAD), coronary artery bypass grafting (CABG) 2009 with reduced ejection fraction, (EF) ejection fraction of 20% with automatic implantable cardio converter-defibrillator (AICD), cerebral vascular accident (CVA) with left sided hemiparesis, diabetes, hypertension, brain aneurysm with clipping, anemia of chronic disease, dyslipidemia, vascular reflux, hypertension who presented to the emergency room with a two day history of worsening shortness of breath found to be fluid overloaded, in congestive heart failure with anasarca in the abdomen and complaints of left lower quadrant while afebrile with no leukocytosis. Acute on chronic Congestive heart failure with reduced ejection fraction, ejection fraction 20% with prior history of ischemic cardiomyopathy Has AICD in place negative troponin and EKG had no significant change, remains with prior inferior and anterior changes I/Os daily weights managing fluid balance by HD will get a cXR after paracentesis to evaluate for pleural efussion and if he needs a pleural tap or not. Coronary artery disease (CAD) with CABG in 2009 continue home meds LLQ pain: remains without infectious complaints aside from left lower quadrant pain and anasarca. However this is most likely positional as he always leans on the right and all his ascites is on the right. Hove to rule out SBP On Ceftriaxone due to concerns for spontaneous bacterial peritonitis (SBP) pending paracentesis with studies Liver cirrhosis d/b ascites with monthly paracentesis. Currently afebrile with minimal white count of 10.5. Pending paracentesis with IR with SBP r/o studies Monitor CBC and follow up blood cultures History of atrial fibrillation, atrial flutter. Currently rate controlled. continuing metoprolol End-stage renal disease on HD MWF: nephrology on board CVA with mild left sided hemiparesis. Type 2 diabetes. FS AC and HS continue home meds. H/o Hypertension now chronic hypotension continue midodrine. will try to resume losartan for heart failure management if BP permits. Anemia secondary to renal disease. Dyslipidemia. continue statin History of brain aneurysm with clipping. DVT ppx: heparin 5000u Q8H VS,Fishbone, I+O VS, Fishbone, I+O Laboratory Tests 12/25/18 05:15 Vital Signs Date Time Temp Pulse Resp B/P (MAP) Pulse Ox O2 Delivery O2 Flow Rate FiO2 12/25/18 04:00 96.8 69 22 112/70 (84) 96 Nasal Cannula 3.0 I&O- Last 24 Hours up to 6 AM 12/25/18 06:00 Intake Total 0 ml Output Total 1500 ml Balance -1500 ml ELLIE LOTT MD Dec 25, 2018 06:09
[2018-12-25 12:01] LABS: APPEARANCE, BODY FLUID CLEAR (CLEAR); ASCITES FL COLOR YELLOW (COLORLESS); SOURCE, BODY FLUID ASCITES
[2018-12-25 12:23] LABS: SPEC. GRAVITY BODY FLUIDS 1.022 (NOT ESTABLISHED)
--- NOTE | 2018-12-25 12:28 | IPN ---
DATE OF SERVICE: 12/25/2018 SUBJECTIVE: Patient was seen and examined at the bedside today morning. He was dialyzed yesterday. He tolerated the hemodialysis procedure well. 1.5 liters of fluid was removed. Ascitic tap has not been done so far. He will go for it today. He denies any active complaints. He is hemodynamically stable. OBJECTIVE: Vital signs: Temperature is 97.8 degrees Fahrenheit, blood pressure 115/70, pulse is 74, respiratory rate of 20, saturating 100% on nasal cannula at 2 liters. Intake and output: There is no urine output recorded. Ultrafiltration with hemodialysis was 1.5 liters. Weight in the bed scale is 82.6 kg. PHYSICAL EXAMINATION: General: The patient is awake, alert, oriented times three, laying in bed, in no apparent distress. Head and neck exam: Extraocular muscles intact. Pupils equally round and reactive to light. Mucous membranes are moist. Neck is supple. There is mildly elevated jugular venous distention (JVD). Cardiovascular: S1, S2, regular rate. No edema of the bilateral lower extremities. Respiratory: Mildly decreased breath sounds at the bases, otherwise no rales or rhonchi. Abdomen is soft, positive bowel sounds. Moderate amount of ascites is noted more worse on the right side as compared with the left. Musculoskeletal: No clubbing or cyanosis. Pulses are 2+. 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 Otherwise, he follows commands and moves extremities. LAB REVIEW: CBC showed WBC of 8.6, hemoglobin 12.2, platelets of 150. BMP showed sodium 138, potassium 4.6, chloride 105, bicarbonate 25, BUN 25, creatinine is 2.8, calcium is 8.6. MICROBIOLOGY: Blood cultures are negative so far. CURRENT INPATIENT MEDICATIONS: Patient's medications were all reviewed by me. Losartan has been stopped because of low blood pressures. No other change in the medications today as compared with yesterday. ASSESSMENT/PLAN: 1. End-stage renal disease on hemodialysis. Patient was dialyzed yesterday according to his regular schedule. Next hemodialysis will be tomorrow as per Monday, Monday, Monday schedule. 2. Acute decompensated systolic congestive heart failure. Patient's volume status is better. 1.5 liters of fluid was removed. Rest of the fluid management will be done with paracentesis. Continue the low-salt diet. Because of low blood pressures his losartan is being stopped. Okay to continue the metoprolol. 3. Liver cirrhosis with recurrent ascites. Patient is going to have the ascitic tap done today. He will get peritoneal fluid cell count and culture. He is empirically being covered with IV ceftriaxone for possible spontaneous bacterial peritonitis (SBP). 4. Anemia in end-stage renal disease. Hemoglobin level is 12.2. No need of Aranesp administration at this time. 5. Bilateral pleural effusions. Patient is going to have a chest x-ray done after the ascitic tap. If he still has persistent effusion, then he will need a pleural tap to be done on the right side. 6. Chronic hypotension. Continue midodrine 5 mg by mouth three times a day.
[2018-12-25 12:37] LABS: SOURCE, BODY FLUID ALBUMIN ASCITES; SOURCE, BODY FLUID GLUCOSE ASCITES; SOURCE, BODY FLUID TOT PROTEIN ASCITES; TOTAL PROTEIN, BODY FLUID 3.1 G/DL (NOT ESTABLISHED)
--- NOTE | 2018-12-25 12:42 | REP ---
Chest the patient sitting, AP and lateral views: Comparison is the similar study of 12/23/2018. The cardiomegaly, bilateral pleural effusions and bilateral infiltrates are unchanged. The sternotomy wires and pacemaker are unchanged. Impression: There is no interval change. Electronically Signed by Chip Forrester MD 12/25/2018 12:35 P
[2018-12-25] MEDS: SUCROFERRIC OXYHYDROXIDE 500MG CHEW TAB (VELPHORO) PO SCH ×2 (12:57→17:07)
[2018-12-25] MEDS: SERTRALINE HCL 25 MG TABLET PO SCH (12:58)
[2018-12-25] MEDS: NEPHRO-VIT TAB (NEPHROCAPS) PO SCH (15:03)
--- NOTE | 2018-12-25 19:58 | REP ---
Ultrasound-guided paracentesis The procedure was performed under the direct supervision of Dr. Li. The risks and benefits of the procedure were explained to the patient and informed consent was obtained. The largest pocket of fluid was localized in the right flank using ultrasound guidance. The skin was prepped and draped in a sterile fashion. 1% lidocaine was used as a local anesthetic. An 8-Portuguese multi side-hole catheter was inserted using trocar technique. 4400 ml of yellow fluid was withdrawn with a sample sent to the lab for analysis. The patient tolerated the procedure well and there were no immediate complications. After the appropriate amount of monitored convalescence the patient was discharged from the department. Electronically Signed by SHARON Velez 12/25/2018 04:36 P Electronically Signed by Akash Li MD 12/25/2018 07:50 P
[2018-12-25] MEDS: METOPROLOL SUCC *XL* 12.5MG PER 1/2 TAB (TopROL *XL*) PO SCH (21:00)
[2018-12-25] MEDS: ATORVASTATIN 10 MG TAB PO SCH (21:25)
[2018-12-26 04:00] VITALS: BP 102/58
[2018-12-26] MEDS: HEPARIN SOD (PORCINE) 5000 UNITS/ML VIAL SQ SCH ×3 (04:37→20:15)
[2018-12-26] MEDS: SLF 3 ML SYR IV SCH ×3 (05:21→20:15)
[2018-12-26 05:50] LABS: HEMATOCRIT 41.3 % (42.0-52.0); HEMOGLOBIN 12.9 g/dl (13.5-17.5); MEAN CORPUSCULAR HEMOGLOBIN 32.6 pg (27.0-33.0); MEAN CORPUSCULAR HGB CONC 31.2 g/dl (32.0-36.5); MEAN CORPUSCULAR VOLUME 104.3 fl (80.0-96.0); PLATELET COUNT, AUTOMATED 169 10^3/uL (150-450); RED BLOOD COUNT 3.96 10^6/uL (4.30-6.10); WHITE BLOOD COUNT 10.2 10^3/uL (4.0-10.0)
[2018-12-26 06:20] LABS: CALCIUM LEVEL 8.7 MG/DL (8.8-10.2); CREATININE FOR GFR 3.55 MG/DL (0.70-1.30); GLOMERULAR FILTRATION RATE 18.5 (>49); POTASSIUM SERUM 4.6 MEQ/L (3.5-5.1)
[2018-12-26 08:00] VITALS: BP 142/93
[2018-12-26] MEDS: MIDODRINE 5 MG TAB PO SCH ×3 (08:44→17:54)
[2018-12-26] MEDS: cefTRIAXone SOD 2 GM in D5W MINI-BAG PLUS 50 ML IV SCH (08:44)
[2018-12-26] MEDS ORDERED: HEPARIN 1,000 UNITS/ML 10ML VIAL (FOR RADIOLOGY& DIALYSIS ONLY) IV ONE (10:00)
--- NOTE | 2018-12-26 11:00 | IPNPDOC ---
Text Note Date of Service The patient was seen on 12/26/18. NOTE Subjective: complains of generalized abdominal soreness and loose bowel movements with some cramps. No fever or chills, no chest pain or cough, going for HD today . Patient says does not have any weakness on his right side but always tend to lie on the right . He is very hard of hearing. Objective: Vitals: see below. Afebrile, hemodynamically stable GENERAL: Appears older than his stated age, ill appearing, AOx3 HEENT: NCAT, with bitemporal wasting, poor dentition, no thyromegaly or cervical adenopathy. PERRLA, EOMI, anicteric LUNGS: Diminished, continues to have bilateral basal crackles in posterior lung cheney, AICD on left noted. HEART: RRR, S1, S2, no noted murmur, gallop or rub. ABDOMEN: tenderness in all the quadrants, no guarding or rigidity. hyperper istaltic bowel sounds. EXTREMITIES: edema diminished. NEUROLOGIC: Fluent speech, moving all extremities, no facial droop, cranial nerves appear intact Skin: there is a 3 cm x 4 cm pressure ulcer on the right lateral malleoli. dry skin. Labs: Reviewed as below. Microbiology, two sets of blood cultures are pending. Chest x-ray: Pulmonary edema. CT A/P: 1. Examination of the liver demonstrates a lobular surface contour, and enlargement of the left and caudate lobes, findings which may be consistent with cirrhosis in the appropriate clinical setting. Stable appearance of a cyst in the right lobe of the liver. 2. There is a small gallstone present. No evidence of cholecystitis dem onstrated. 3. There is diffuse pancreatic atrophy. 4. There is bilateral adrenal hyperplasia. 5. There is increased feces throughout the colon consistent with constipation. 6. There is a moderate amount of free intraperitoneal fluid present. 7. Mild diverticulosis is present in the left colon. No diverticulitis. 8. Anasarca. ASSESSMENT AND PLAN: 63-year-old man with history of liver cirrhosis with monthly paracentesis, end- stage renal disease on HD MWF, ischemic cardiomyopathy, history of coronary artery disease (CAD), coronary artery bypass grafting (CABG) 2009 with reduced ejection fraction, (EF) ejection fraction of 20% with automatic implantable cardio converter-defibrillator (AICD), cerebral vascular accident (CVA) with left sided hemiparesis, diabetes, hypertension, brain aneurysm with clipping, anemia of chronic disease, dyslipidemia, vascular reflux, hypertension who presented to the emergency room with a two day history of worsening shortness of breath found to be fluid overloaded, in congestive heart failure with anasarca in the abdomen and complaints of left lower quadrant while afebrile with no leukocytosis. Acute on chronic Congestive heart failure with reduced ejection fraction, ejection fraction 20% with prior history of ischemic cardiomyopathy Has AICD in place negative troponin and EKG had no significant change, remains with prior inferior and anterior changes I/Os daily weights managing fluid balance by HD Planned ofr thoracocentesis today if enough fluid present. Coronary artery disease (CAD) with CABG in 2009 continue home meds Abdominal pain with loose bowel movements. there is no SBP could be due to antibiotics. will stop cefriaxone. Abnormal CXR this is bilateral pleural effusion with atelectasis. i do not think he has pneumonia as there is no cough or fever . WBC not elevated. So the infiltrates are probably atelectasis and chronic changes. Liver cirrhosis d/b ascites with monthly paracentesis. Currently afebrile with minimal white count of 10.5. Had paracentesis with 4400 ml fluid removal. History of atrial fibrillation, atrial flutter. Currently rate controlled. continuing metoprolol End-stage renal disease on HD MWF: nephrology on board CVA with mild left sided hemiparesis. denies any weakness. Type 2 diabetes. FS AC and HS continue home meds. H/o Hypertension now chronic hypotension continue midodrine. will try to resume losartan for heart failure management if BP permits. Anemia secondary to renal disease. Dyslipidemia. continue statin History of brain aneurysm with clipping. DVT ppx: heparin 5000u Q8H VS,Fishbone, I+O VS, Fishbone, I+O Laboratory Tests 12/26/18 05:14 Vital Signs Date Time Temp Pulse Resp B/P (MAP) Pulse Ox O2 Delivery O2 Flow Rate FiO2 12/26/18 08:00 97.6 75 18 142/93 (109) 93 12/25/18 20:00 Nasal Cannula 3.0 I&O- Last 24 Hours up to 6 AM 12/26/18 06:00 Intake Total 950 ml Output Total 0 ml Balance 950 ml ELLIE LOTT MD Dec 26, 2018 11:00
[2018-12-26] MEDS: SUCROFERRIC OXYHYDROXIDE 500MG CHEW TAB (VELPHORO) PO SCH ×2 (11:45→17:54)
[2018-12-26] MEDS: NEPHRO-VIT TAB (NEPHROCAPS) PO SCH (11:45)
[2018-12-26] MEDS: SERTRALINE HCL 25 MG TABLET PO SCH (11:45)
[2018-12-26 12:00] VITALS: BP 130/75
--- NOTE | 2018-12-26 12:55 | IPN ---
DATE: 12/26/2018 SUBJECTIVE: Patient seen and examined this morning at bedside. He does not complain of any acute events overnight. He is scheduled for dialysis later today. He is status post ascitic tap and had 4.4 liters drained. OBJECTIVE: Vital signs: Temperature 96.9, pulse 73, respiratory rate 16, blood pressure 130/75, saturating 99% on room air. PHYSICAL EXAMINATION: General: Patient is awake, alert, oriented, laying in bed, in no acute distress. HEENT: Extraocular muscles intact (EOMI). Pupils equal, round and reactive to light. Mucous membranes are moist. Neck is supple. There is no jugular venous distention (JVD) appreciated on exam. Cardiovascular: Regular rate and rhythm. Normal S1 and S2. 2+ pitting edema on right lower extremity, none on left lower extremity. Respiratory: Decreased breath sounds at bases. No wheezes, crackles, rhonchi. Abdomen: Soft, nontender, nondistended. Positive bowel sounds significantly reduced. Abdomen is no longer ascitic. Neurologic: Patient is Rene lift dependent. Otherwise, he is able to follow basic commands and move his extremities. LAB REVIEW: White blood cell count 10.2, hemoglobin of 12.9, hematocrit of 41.3, platelet count of 169. Sodium of 137, potassium 4.6, chloride of 102, CO2 of 29, BUN of 36, creatinine of 3.55, glucose 112, calcium of 8.7, LDH of 148. CURRENT INPATIENT MEDICATIONS: No medications changes. 1. End-stage renal disease (ESRD) on hemodialysis. Patient is scheduled to be dialyzed later today. If he is dialyzed before his thoracentesis, he will have heparin held. If he is dialyzed after his thoracentesis, he will have heparin run along beside it. 2. Acute decompensated systolic congestive heart failure. The patient has bilateral pleural effusions with scheduled thoracentesis for today. 1.5 liters of fluid was removed yesterday. Will continue with a low salt diet. 3. Liver cirrhosis with recurrent ascites. The patient is status post 4.4 liters drained after ascitic tap. Currently, his peritoneal fluid cell count did not show any signs of spontaneous bacterial peritonitis (SBP) and his IV ceftriaxone has been discontinued by primary. 4. Anemia in ERSD. Hemoglobin is stable at this time. No need of Aranesp administration. 5. Bilateral pleural effusions. Previously, patient is scheduled to have pleural tap done on the right side to help drain effusion. 6. Chronic hypotension. Okay to continue midodrine 5 mg by mouth three times a day.
[2018-12-26 17:00] VITALS: BP 136/56
[2018-12-26] MEDS: ATORVASTATIN 10 MG TAB PO SCH (20:15)
[2018-12-26] MEDS: METOPROLOL SUCC *XL* 12.5MG PER 1/2 TAB (TopROL *XL*) PO SCH ×2 (20:16→20:17)
[2018-12-26 22:00] VITALS: BP 104/58
[2018-12-27] VITALS (8 sets, daily range): BP systolic 11–117; BP diastolic 49–62
[2018-12-27] MEDS: SLF 3 ML SYR IV SCH ×3 (06:22→21:44)
[2018-12-27] MEDS: HEPARIN SOD (PORCINE) 5000 UNITS/ML VIAL SQ SCH ×3 (06:25→21:44)
[2018-12-27 06:33] LABS: HEMOGLOBIN 12.6 g/dl (13.5-17.5); MEAN CORPUSCULAR HEMOGLOBIN 32.9 pg (27.0-33.0); MEAN CORPUSCULAR HGB CONC 32.3 g/dl (32.0-36.5); MEAN CORPUSCULAR VOLUME 101.8 fl (80.0-96.0); PLATELET COUNT, AUTOMATED 145 10^3/uL (150-450); RED BLOOD COUNT 3.83 10^6/uL (4.30-6.10); WHITE BLOOD COUNT 9.6 10^3/uL (4.0-10.0)
[2018-12-27 07:02] LABS: CALCIUM LEVEL 8.4 MG/DL (8.8-10.2); CREATININE FOR GFR 2.62 MG/DL (0.70-1.30); GLOMERULAR FILTRATION RATE 26.3 (>49)
[2018-12-27] MEDS: MIDODRINE 5 MG TAB PO SCH ×3 (09:36→16:28)
[2018-12-27] MEDS: NEPHRO-VIT TAB (NEPHROCAPS) PO SCH (12:48)
[2018-12-27] MEDS: SUCROFERRIC OXYHYDROXIDE 500MG CHEW TAB (VELPHORO) PO SCH ×2 (12:49→18:19)
[2018-12-27] MEDS: SERTRALINE HCL 25 MG TABLET PO SCH (12:49)
--- NOTE | 2018-12-27 13:06 | IPN ---
DATE: 12/26/2018 SUBJECTIVE: Patient seen this morning at bedside and reports no acute events overnight. He states he did not receive his thoracentesis yesterday and is unsure when it is scheduled for. Per nursing staff, he is scheduled to have it later on today at 3 p.m. OBJECTIVE: Vital signs: Temperature 97.6, pulse 81, respiratory rate 18, blood pressure 117/61, saturating 96% on room air. Patient had 2000 mL of fluid out yesterday at dialysis. General: Patient is awake, alert, oriented, in no acute distress, and responding appropriately to questions. HEENT: Extraocular muscles intact. Pupils equal, round, and reactive to light. Mucous membranes are moist. Neck is supple with no jugular venous distention (JVD) present on examination. Cardiovascular: Regular rate and rhythm. Normal S1 and S2. Continues to be 2+ pitting edema on right lower extremity, none in left lower extremity. Respiratory: Diminished breath sounds at bilateral bases. Crackles also present at bilateral bases. Abdomen: Soft, nontender, nondistended. Positive bowel sounds. Abdomen is no longer ascitic. Neurologic: Patient is Rene lift dependent. Otherwise, he is able to follow basic commands and move his extremities. LAB REVIEW: White blood cell count 9.6, hemoglobin 12.6, hematocrit 39, platelet count of 145. Sodium of 140, potassium 4, chloride 102, CO2 30, BUN 24, creatinine 2.62, glucose 95, calcium 8.4. ASSESSMENT AND PLAN: 1. End-stage renal disease (ESRD) on hemodialysis. Patient was dialyzed yesterday and had 2 liters removed. There is a plan for him to have thoracentesis today so his heparin is being held. 2. Acute decompensated systolic congestive heart failure. Patient has bilateral pleural effusions and now has scheduled thoracentesis for today. 2 liters were removed yesterday. He is to continue with a low-salt diet. 3. Liver cirrhosis with recurrent ascites. Patient is status post 4.4 liters drained after his ascitic tap. His cell count is not showing any signs of spontaneous bacterial peritonitis (SBP). 4. Anemia in ESRD. Hemoglobin continues to be stable at this time. No need for Aranesp administration. 5. Bilateral pleural effusions. As previously stated, patient is scheduled to have thoracentesis done on the right side to help drain his effusion. 6. Chronic hypotension. Patient is to continue on his midodrine 5 mg by mouth three times a day.
--- NOTE | 2018-12-27 14:29 | REP ---
Chest x-ray: Two views. History: Rule out pneumothorax. Post right thoracentesis. Comparison chest x-ray: December 25 2018. Findings: There is blunting of the pleural angles bilaterally. This is somewhat improved on the right. There is no evidence of pneumothorax on either side. There is a moderate cardiomegaly. Pacemaker is again noted. Median sternotomy wires are seen. Impression: No evidence of pneumothorax. Status post right thoracentesis. Electronically Signed by Akash Li MD 12/27/2018 02:20 P
[2018-12-27] MEDS ORDERED: PERCOCET 5MG/325MG TAB PO PRN (15:15)
--- NOTE | 2018-12-27 15:28 | IPNPDOC ---
Text Note Date of Service The patient was seen on 12/27/18. NOTE Subjective: No complaints this am . denied any abdominal pain today and denied any diarrhea. No fever or chills, Had thoracocentesis today. Objective: Vitals: see below. Afebrile, hemodynamically stable GENERAL: Appears older than his stated age, ill appearing, AOx3 HEENT: NCAT, with bitemporal wasting, poor dentition, no thyromegaly or cervical adenopathy. PERRLA, EOMI, anicteric LUNGS: Diminished, continues to have bilateral basal crackles in posterior lung cheney, AICD on left noted. HEART: RRR, S1, S2, no noted murmur, gallop or rub. ABDOMEN: tenderness in all the quadrants, no guarding or rigidity. hyperperistaltic bowel sounds. EXTREMITIES: edema diminished. NEUROLOGIC: Fluent speech, moving all extremities, no facial droop, cranial nerves appear intact Skin: there is a 3 cm x 4 cm pressure ulcer on the right lateral malleoli. dry skin. Labs: Reviewed as below. ASSESSMENT AND PLAN: 63-year-old man with history of liver cirrhosis with monthly paracentesis, end- stage renal disease on HD MWF, ischemic cardiomyopathy, history of coronary a rtery disease (CAD), coronary artery bypass grafting (CABG) 2009 with reduced ejection fraction, (EF) ejection fraction of 20% with automatic implantable cardio converter-defibrillator (AICD), cerebral vascular accident (CVA) with left sided hemiparesis, diabetes, hypertension, brain aneurysm with clipping, anemia of chronic disease, dyslipidemia, vascular reflux, hypertension who presented to the emergency room with a two day history of worsening shortness of breath found to be fluid overloaded, in congestive heart failure with anasarca in the abdomen and complaints of left lower quadrant while afebrile with no leukocytosis. Acute on chronic Congestive heart failure with reduced ejection fraction, ejection fraction 20% with prior history of ischemic cardiomyopathy Has AICD in place negative troponin and EKG had no significant change, remains with prior inferior and anterior changes I/Os daily weights managing fluid balance by HD Coronary artery disease (CAD) with CABG in 2009 continue home meds Abdominal pain with loose bowel movements. resolved due to antibiotics. there is no SBP Abnormal CXR this is bilateral pleural effusion with atelectasis. i do not think he has pneumonia as there is no cough or fever . WBC not elevated. So the infiltrates are probably atelectasis and chronic changes. s/p right thoracocentesis. Liver cirrhosis d/b ascites with monthly paracentesis. Currently afebrile with minimal white count of 10.5. Had paracentesis with 4400 ml fluid removal. No SBP S/p right thoracocentesis. History of atrial fibrillation, atrial flutter. Currently rate controlled. continuing metoprolol End-stage renal disease on HD MWF: nephrology on board CVA with mild left sided hemiparesis. denies any weakness. Type 2 diabetes. FS AC and HS continue home meds. H/o Hypertension now chronic hypotension continue midodrine. will try to resume losartan for heart failure management if BP permits. Anemia secondary to renal disease. Dyslipidemia. continue statin History of brain aneurysm with clipping. DVT ppx: heparin 5000u Q8H VS,Fishbone, I+O VS, Fishbone, I+O Laboratory Tests 12/27/18 06:19 Vital Signs Date Time Temp Pulse Resp B/P (MAP) Pulse Ox O2 Delivery O2 Flow Rate FiO2 12/27/18 15:05 98.1 74 20 99/62 (74) 97 Room Air 12/25/18 20:00 3.0 I&O- Last 24 Hours up to 6 AM 12/27/18 06:00 Intake Total 1100 ml Output Total 2000 ml Balance -900 ml ELLIE LOTT MD Dec 27, 2018 15:28
[2018-12-27 15:34] LABS: PH BODY FLUID 7.739 UNITS (NOT ESTABLISHED); SOURCE, BODY FLUID pH PLEURAL
[2018-12-27 16:01] LABS: AMYLASE, BODY FLUID 20 U/L (NOT ESTABLISHED); CHOLESTEROL, BODY FLUID < 50 MG/DL (NOT ESTABLISHED); LDH, BODY FLUID 64 U/L (NOT ESTABLISHED); SOURCE, BODY FLUID ALBUMIN PLEURAL; SOURCE, BODY FLUID AMYLASE PLEURAL; SOURCE, BODY FLUID CHOL PLEURAL; SOURCE, BODY FLUID GLUCOSE PLEURAL; SOURCE, BODY FLUID LDH PLEURAL; SOURCE, BODY FLUID TOT PROTEIN PLEURAL; SOURCE, BODY FLUID TRIG PLEURAL; TOTAL PROTEIN, BODY FLUID 2.3 G/DL (NOT ESTABLISHED); TRIGLYCERIDE, BODY FLUID 13 MG/DL (NOT ESTABLISHED)
[2018-12-27 16:04] LABS: APPEARANCE, BODY FLUID CLEAR (CLEAR); PLEURAL FL COLOR YELLOW (COLORLESS); SOURCE, BODY FLUID PLEURAL
--- NOTE | 2018-12-27 17:29 | REP ---
ULTRASOUND-GUIDED RIGHT THORACENTESIS The procedure was performed under the direct supervision of Dr. Li. The risks and benefits of the procedure were explained to the patient and informed consent was obtained. The right pleural effusion was localized using ultrasound guidance. The skin was prepped and draped in a sterile fashion. 1% lidocaine was used as a local anesthetic. An 8-[place] multi side-hole catheter was inserted using trocar technique. 1450 ml of yellow fluid was withdrawn with a sample sent to the lab for analysis. The patient tolerated the procedure well and there were no immediate complications. After the appropriate amount of monitored convalescence the patient was discharged from the department. Electronically Signed by SHARON Velez 12/27/2018 03:31 P Electronically Signed by Akash Li MD 12/27/2018 05:20 P
[2018-12-27] MEDS: METOPROLOL SUCC *XL* 12.5MG PER 1/2 TAB (TopROL *XL*) PO SCH (20:17)
[2018-12-27] MEDS: ATORVASTATIN 10 MG TAB PO SCH (21:44)
[2018-12-28 06:00] VITALS: BP 113/66
[2018-12-28 06:27] LABS: HEMATOCRIT 39.1 % (42.0-52.0); HEMOGLOBIN 12.5 g/dl (13.5-17.5); MEAN CORPUSCULAR HEMOGLOBIN 33.1 pg (27.0-33.0); MEAN CORPUSCULAR VOLUME 103.4 fl (80.0-96.0); PLATELET COUNT, AUTOMATED 165 10^3/uL (150-450); RED BLOOD COUNT 3.78 10^6/uL (4.30-6.10); WHITE BLOOD COUNT 9.9 10^3/uL (4.0-10.0)
[2018-12-28] MEDS: HEPARIN SOD (PORCINE) 5000 UNITS/ML VIAL SQ SCH ×2 (06:36→13:33)
[2018-12-28] MEDS: SLF 3 ML SYR IV SCH (06:37)
[2018-12-28] MEDS: MIDODRINE 5 MG TAB PO SCH ×2 (06:37→13:32)
[2018-12-28 06:52] LABS: CALCIUM LEVEL 8.5 MG/DL (8.8-10.2); CREATININE FOR GFR 3.55 MG/DL (0.70-1.30); GLOMERULAR FILTRATION RATE 18.5 (>49); POTASSIUM SERUM 4.3 MEQ/L (3.5-5.1)
[2018-12-28] MEDS ORDERED: HEPARIN 1,000 UNITS/ML 10ML VIAL (FOR RADIOLOGY& DIALYSIS ONLY) IV ONE (10:45)
--- NOTE | 2018-12-28 12:32 | IPN ---
DATE OF SERVICE: 12/28/2018 SUBJECTIVE: Patient was seen and examined at the bedside today morning during hemodialysis. He is tolerating the hemodialysis procedure well. He got thoracentesis done yesterday; 1.4 liters of fluid was removed. Her reports that his shortness of breath is significantly better. He denies any chest pain, nausea, vomiting at this time. OBJECTIVE: Vital signs: Temperature is 96 degrees Fahrenheit, blood pressure 113/66, pulse is 64, respiratory of 18, saturating 97% on room air. Intake and output: There is no urine output recorded. Thoracentesis on the right side was 1.4 liters. Weight in the bed scale is not available. PHYSICAL EXAMINATION: General: Patient is awake, alert, oriented times three, laying in bed, getting hemodialysis done. Head and neck exam: Extraocular muscles intact. Pupils equally round and reactive to light. Mucous membranes are moist. Neck is supple. There is no jugular venous distention (JVD). Cardiovascular: S1, S2, regular rate. No edema of the bilateral lower extremities. Respiratory: Chest is clear to auscultation bilaterally. Mildly decreased breath sounds at the left base. No active rales or rhonchi. Abdomen: Soft. Positive bowel sounds. Mild amount of ascites with dullness to percussion in the flanks. Musculoskeletal: No edema of the bilateral lower extremities. Central nervous system (EVALUATION ANALYST): The patient moves bilateral upper extremities and follows commands. The patient is chronically bedridden. Psychiatric: He has a depressed mood. LAB REVIEW: CBC showed WBC of 9.9, hemoglobin 12.5, platelets of 165. BMP showed sodium 137, potassium 4.3, chloride 104, bicarbonate 29, BUN 34, creatinine is 3.5. IMAGING: Thoracentesis was done yesterday; 1.4 liters of fluid was removed. Postprocedure chest x-ray shows improvement in the right-sided effusion. CURRENT INPATIENT MEDICATIONS: Patient's medications were all reviewed by me. There is no change in the medications today as compared with yesterday. ASSESSMENT: 1. End-stage renal disease, hemodialysis. Patient's dialysis days are Monday, Monday, Monday. He is being dialyzed according to his regular schedule. Ultrafiltration goal will be 1.2 liters. 2. Chronic systolic congestive heart failure. Volume status is optimal. Thoracentesis improved his shortness of breath. 3. Liver cirrhosis with recurrent ascites. Patient got paracentesis done during this admission. He gets ascitic tap done once a month. 4. Anemia in end-stage renal disease. Hemoglobin is stable. He is currently not on Aranesp. 5. Chronic hypotension. Continue current dose of midodrine 5 mg three times a day.
[2018-12-28] MEDS: SUCROFERRIC OXYHYDROXIDE 500MG CHEW TAB (VELPHORO) PO SCH (13:31)
[2018-12-28] MEDS: NEPHRO-VIT TAB (NEPHROCAPS) PO SCH (13:32)
[2018-12-28] MEDS: SERTRALINE HCL 25 MG TABLET PO SCH (13:32)
--- NOTE | 2018-12-28 15:44 | DS.PDOC ---
Discharge Summary General Date of Admission Dec 23, 2018 at 19:32 Date of Discharge 12/28/18 Discharge Summary PROCEDURES PERFORMED DURING STAY: Paracentesis Right thoracocentesis DISCHARGE DIAGNOSES: Acute on chronic systolic heart failure exacerbation cirrhosis of liver with ascites s/p tapping atrial flutter/fibrillation right pleural effusion s/p tapping. generally deconditioned and bed bound. ESRD on HD SECONDARY DIAGNOSIS: Liver cirrhosis with monthly paracentesis, end-stage renal disease on HD MWF, ischemic cardiomyopathy, history of coronary artery disease (CAD), coronary artery bypass grafting (CABG) 2009 with reduced ejection fraction, (EF) ejection fraction of 20% with automatic implantable cardio converter-defibrillator (AICD), cerebral vascular accident (CVA) with left sided hemiparesis, diabetes, hypertension, brain aneurysm with clipping, anemia of chronic disease, dyslipidemia, vascular reflux, hypertension COMPLICATIONS/CHIEF COMPLAINT: CHF. HISTORY OF PRESENT ILLNESS: See history and physical HOSPITAL COURSE: 63-year-old man with history of liver cirrhosis with monthly paracentesis, end-stage renal disease on HD MWF, ischemic cardiomyopathy, history of coronary artery disease (CAD), coronary artery bypass grafting (CABG) 2009 with reduced ejection fraction, (EF) ejection fraction of 20% with automatic implantable cardio converter-defibrillator (AICD), cerebral vascular accident (CVA) with left sided hemiparesis, diabetes, hypertension, brain aneurysm with clipping, anemia of chronic disease, dyslipidemia, vascular reflux, hypertension who presented to the emergency room with a two day history of worsening shortness of breath found to be fluid overloaded, in congestive heart failure with anasarca in the abdomen and complaints of left lower quadrant while afebrile with no leukocytosis. Acute on chronic Congestive heart failure with reduced ejection fraction, ejection fraction 20% with prior history of ischemic cardiomyopathy Has AICD in place negative troponin and EKG had no significant change, remains with prior inferior and anterior changes I/Os , continue moderate fluid restriction. managing fluid balance by HD Coronary artery disease (CAD) with CABG in 2009 continue home meds Right sided pleural efussion tapped on 12/28/18 removed [id number] cc No infection. Liver cirrhosis d/b ascites with monthly paracentesis. Currently afebrile with minimal white count of 10.5. Had paracentesis with 4400 ml fluid removal. No SBP History of atrial fibrillation, atrial flutter. Currently rate controlled. continuing metoprolol End-stage renal disease on HD MWF: nephrology on board CVA with mild left sided hemiparesis. denies any weakness. Type 2 diabetes. FS AC and HS continue home meds. H/o Hypertension now chronic hypotension continue midodrine. will try to resume losartan for heart failure management if BP permits. Anemia secondary to renal disease. Dyslipidemia. continue statin History of brain aneurysm with clipping. DISCHARGE MEDICATIONS: Please see below. ALLERGIES: Please see below. PHYSICAL EXAMINATION ON DISCHARGE: VITAL SIGNS: Please see below. GENERAL: Appears older than his stated age, AOx3 HEENT: NCAT, with bitemporal wasting, poor dentition, no thyromegaly or cervical adenopathy. PERRLA, EOMI, anicteric LUNGS: Diminished at both the bases nor left > right continues to have bilateral basal crackles in posterior lung cheney, AICD on left noted. HEART: RRR, S1, S2, no noted murmur, gallop or rub. ABDOMEN: Non tender, soft, normal peristatic sounds, ascites present. EXTREMITIES: edema diminished. NEUROLOGIC: Fluent speech, moving all extremities, no facial droop, cranial nerves appear intact Skin: there is a 3 cm x 4 cm pressure ulcer on the right lateral malleoli. dry skin. LABORATORY DATA: Please see below. ACTIVITY: [As tolerated]. DIET: 2 gm sodium DISPOSITION: [facility]. DISCHARGE INSTRUCTIONS: follow up nephrology DISCHARGE CONDITION: [Stable]. TIME SPENT ON DISCHARGE: 35 minutes. Vital Signs/I&Os Vital Signs Date Time Temp Pulse Resp B/P (MAP) Pulse Ox O2 Delivery O2 Flow Rate FiO2 12/28/18 06:00 96.0 64 18 113/66 (82) 97 12/27/18 15:35 Room Air 12/25/18 20:00 3.0 I&O- Last 24 Hours up to 6 AM 12/28/18 05:59 Intake Total 1110 ml Output Total 0 ml Balance 1110 ml Laboratory Data Labs 24H Laboratory Tests 2 12/27/18 17:27: Bedside Glucose (Misc Panel) 133H 12/28/18 05:48: Nucleated Red Blood Cells % (auto) 0.0, Anion Gap 4L, Glomerular Filtration Rate 18.5L, Calcium Level 8.5L CBC/BMP Laboratory Tests 12/28/18 05:48 FSBS Laboratory Tests Test 12/27/18 17:27 Range/Units Bedside Glucose (Misc Panel) 133 80-115 MG/DL Microbiology Microbiology 12/27/18 Fungal Smear, Received Pending 12/27/18 Fungal Culture, Received Pending 12/27/18 Gram Stain - Final, Resulted 12/27/18 Anaerobic Culture, Resulted Pending 12/27/18 Body Fluid Culture, Received Pending 12/25/18 Acid Fast Stain, Received Pending 12/25/18 Mycobacterial Culture, Received Pending 12/25/18 Fungal Smear, Received Pending 12/25/18 Fungal Culture, Received Pending 12/25/18 Gram Stain - Final, Complete 12/25/18 Body Fluid Culture - Final, Complete 12/23/18 Blood Culture - Preliminary, Resulted No Growth after 72 hours. All specime... 12/23/18 Blood Culture - Preliminary, Resulted No Growth after 72 hours. All specime... Discharge Medications Scheduled Atorvastatin Calcium (Atorvastatin Calcium) 10 Mg Tablet, 10 MG PO QHS, (Re ported) Ergocalciferol (Vitamin D2) (Drisdol) 50,000 Unit Capsule, 50,000 UNIT PO QWEEK, (Reported) SATURDAYS Losartan Potassium (Losartan Potassium) 25 Mg Tablet, 25 MG PO DAILY, (Reported) AT NOON; HOLD IF SBP < 90 Metoprolol Succinate (Metoprolol Succinate) 25 Mg Tab.er.24h, 12.5 MG PO QHS, ( Reported) Midodrine HCl (Midodrine HCl) 5 Mg Tablet, 5 MG PO TID, (Reported) Sertraline HCl (Sertraline HCl) 25 Mg Tablet, 25 MG PO DAILY, (Reported) AT NOON Sucroferric Oxyhydroxide (Velphoro) 500 Mg Tab.chew, 500 MG PO BID, (Reported) AT LUNCH AND DINNER Vit B Comp No.3/Folic/C/Biotin (Nephro-Sarah Rx Tablet) 1 Each Tablet, 1 TAB PO DAILY, (Reported) AT NOON Scheduled PRN Acetaminophen (Acetaminophen) 650 Mg Supp.rect, 650 MG AL Q4H PRN for PAIN / FEVER, (Reported) Acetaminophen (Acetaminophen) 325 Mg Tablet, 650 MG PO Q4H PRN for PAIN / FEVER, (Reported) Albuterol Sulf (Albuterol Sulfate) 2.5 Mg/3 Ml Vial.neb, 2.5 MG INH Q6H PRN for SHORTNESS OF BREATH, (Reported) Bisacodyl (Dulcolax) 10 Mg Supp.rect, 10 MG AL DAILY PRN for CONSTIPATION, (Reported) Lidocaine (Lidocaine) 5 Gm Cream..g., 1 APLCT TOP BID PRN for PAIN, (Reported) APPLY TO RIGHT LOWER ABDOMEN Loperamide HCl (Loperamide) 2 Mg Capsule, 2 MG PO Q6H PRN for DIARRHEA, (Reported) Sodium Phosphate,[place]-Dibasic (Enema) 133 Ml Enema, 1 MOO AL DAILY PRN for CONS TIPATION, (Reported) Allergies Coded Allergies: Egg Derived (Verified Adverse Reaction, Unknown, Diarrhea, upset stomach , 12/23/18) egg (Verified Adverse Reaction, Unknown, diarrhea, upset stomach, 12/23/18) ELLIE LOTT MD Dec 28, 2018 15:44
== END 2018-12-28 14:04 | DRG 291 ==
LOC: M ED 15:35 → M ED INP 19:32 → M PCU 21:31 → M MSPAV 12-26 15:45
PROVIDERS: ADMIT General Practice; ATTEND Internal Medicine Nephrology
PROC: 5A1D70Z Performance of Urinary Filtration, Intermittent, Less than 6 Hours Per Day (ICD-10-PCS; principal; 2018-12-24)
PROC: 0W9G3ZZ Drainage of Peritoneal Cavity, Percutaneous Approach (ICD-10-PCS; 2018-12-25)
PROC: 0W993ZZ Drainage of Right Pleural Cavity, Percutaneous Approach (ICD-10-PCS; 2018-12-26)
DX: I13.2 Hypertensive heart and chronic kidney disease with heart failure and with stage 5 chronic kidney disease, or end stage renal disease (principal); N18.6 End stage renal disease; I50.23 Acute on chronic systolic (congestive) heart failure; I69.354 Hemiplegia and hemiparesis following cerebral infarction affecting left non-dominant side; R18.8 Other ascites; I48.92 Unspecified atrial flutter; J90 Pleural effusion, not elsewhere classified; J98.11 Atelectasis; K74.60 Unspecified cirrhosis of liver; E87.5 Hyperkalemia; I25.10 Atherosclerotic heart disease of native coronary artery without angina pectoris; I95.89 Other hypotension; I25.5 Ischemic cardiomyopathy; E11.22 Type 2 diabetes mellitus with diabetic chronic kidney disease; D63.1 Anemia in chronic kidney disease; I48.91 Unspecified atrial fibrillation; Z95.810 Presence of automatic (implantable) cardiac defibrillator; Z91.012 Allergy to eggs; Z79.899 Other long term (current) drug therapy; Z99.3 Dependence on wheelchair; Z95.1 Presence of aortocoronary bypass graft

== ENCOUNTER → 2019-01-22 | Outpatient (REF) | payer MEDICARE, MEDICAID ==
[~2019-01-22] MED LIST changes: +ACET65SU PR; +APAP325T4 PO; +ENEMENE PR; +LIDO1CRE2 TOP; +LOPE1CAP5 PO; +VELP5CHW PO
[2019-01-22 07:42] LABS: IRON (FE) 76 UG/DL (65-175); PERCENT SATURATION 47.2 % (19.7-50.0); TOTAL IRON BINDING CAPACITY 161 UG/DL (250-450)
[2019-01-24 00:06] LABS: ANTI-MITOCHONDRIAL ANTIBODY <20.0 Units (0.0-20.0); ANTI-SMOOTH MUSCLE ANTIBODY 11 Units (0-19); ANTINUCLEAR ANTIBODIES DIRECT Negative (Negative); HEPATITIS A IgG TOTAL Negative (Negative); LIVER-KIDNEY MICROSOMAL ABY <20.1 Units (0.0-20.0)
== END ==
LOC: SKLAB7 07:00
PROVIDERS: ATTEND Family Medicine
DX: K74.60 Unspecified cirrhosis of liver (principal)

== ENCOUNTER → 2019-01-24 | Outpatient (CLI) | payer MEDICARE, MEDICAID ==
[2019-01-24 10:45] VITALS: BP 102/77
--- NOTE | 2019-01-24 16:54 | REP ---
Ultrasound-guided paracentesis The procedure was performed under the direct supervision of Dr. Stringer. The risks and benefits of the procedure were explained to the patient and informed consent was obtained. The largest pocket of fluid was localized in the right lower quadrant using ultrasound guidance. The skin was prepped and draped in a sterile fashion. 1% lidocaine was used as a local anesthetic. An 8-[place] multi side-hole catheter was inserted using trocar technique. 5100 ml of may colored fluid was withdrawn and discarded. The patient tolerated the procedure well and there were no immediate complications. After the appropriate amount of monitored convalescence the patient was discharged from the department. Electronically Signed by SHARON Velez 01/24/2019 04:03 P Electronically Signed by Cihp Stringer MD 01/24/2019 04:44 P
== END ==
LOC: M IRPRO 09:18
PROVIDERS: ATTEND Student in an Organized Health Care Education/Training Program
DX: R18.8 Other ascites (principal)

== ENCOUNTER → 2019-02-07 | Outpatient (REF) | payer MEDICARE, MEDICAID ==
[2019-02-07 09:23] LABS: HEMOGLOBIN A1c 5.3 %
== END ==
LOC: SKLAB7 10:22
PROVIDERS: ATTEND Family Medicine
DX: E11.9 Type 2 diabetes mellitus without complications (principal)

== ENCOUNTER → 2019-02-26 | Outpatient (CLI) | payer MEDICARE, MEDICAID ==
[2019-02-26 11:55] VITALS: BP 100/64
--- NOTE | 2019-02-26 18:26 | REP ---
Ultrasound-guided paracentesis The procedure was performed under the direct supervision of Dr. Li. The risks and benefits of the procedure were explained to the patient and informed consent was obtained. The largest pocket of fluid was localized in the right flank using ultrasound guidance. The skin was prepped and draped in a sterile fashion. 1% lidocaine was used as a local anesthetic. An 8-[place] multi side-hole catheter was inserted using trocar technique. 5850 ml of clear yellow fluid was withdrawn and discarded. The patient tolerated the procedure well and there were no immediate complications. After the appropriate amount of monitored convalescence the patient was discharged from the department. Electronically Signed by SHARON Velez 02/26/2019 04:15 P Electronically Signed by Akash Li MD 02/26/2019 06:17 P
== END ==
LOC: M IRPRO 10:32
PROVIDERS: ATTEND Student in an Organized Health Care Education/Training Program
DX: R18.8 Other ascites (principal)

== ENCOUNTER → 2019-03-28 | Outpatient (CLI) | payer MEDICARE, MEDICAID ==
[2019-03-28 13:10] VITALS: BP 96/64
--- NOTE | 2019-03-29 08:21 | REP ---
Ultrasound-guided paracentesis The procedure was performed under the direct supervision of Dr. Li. The risks and benefits of the procedure were explained to the patient and informed consent was obtained. The largest pocket of fluid was localized in the right flank using ultrasound guidance. The skin was prepped and draped in a sterile fashion. 1% lidocaine was used as a local anesthetic. An 8-Armenian multi side-hole catheter was inserted using trocar technique. 6200 ml of yellow fluid was withdrawn and discarded. The patient tolerated the procedure well and there were no immediate complications. After the appropriate amount of monitored convalescence the patient was discharged from the department. Electronically Signed by SHARON Velez 03/28/2019 05:26 P Electronically Signed by Akash Li MD 03/29/2019 08:13 A
== END ==
LOC: M IRPRO 11:55
PROVIDERS: ATTEND Student in an Organized Health Care Education/Training Program
DX: R18.8 Other ascites (principal)

== ENCOUNTER → 2019-04-25 | Outpatient (CLI) | payer MEDICARE, MEDICAID ==
[2019-04-25 13:00] VITALS: BP 125/74
--- NOTE | 2019-04-25 17:36 | REP ---
Ultrasound-guided paracentesis The procedure was performed under the direct supervision of Dr. Li. The risks and benefits of the procedure were explained to the patient and informed consent was obtained. The largest pocket of fluid was localized in the right upper quadrant using ultrasound guidance. The skin was prepped and draped in a sterile fashion. 1% lidocaine was used as a local anesthetic. An 8-[place] multi side-hole catheter was inserted using trocar technique. 6,300 ml of clear yellow fluid was withdrawn and discarded. The patient tolerated the procedure well and there were no immediate complications. After the appropriate amount of monitored convalescence the patient was discharged from the department. Electronically Signed by SHARON Velez 04/25/2019 04:41 P Electronically Signed by Akash Li MD 04/25/2019 05:26 P
== END ==
LOC: M IRPRO 11:25
PROVIDERS: ATTEND Student in an Organized Health Care Education/Training Program
DX: R18.8 Other ascites (principal); K74.60 Unspecified cirrhosis of liver

== ENCOUNTER 2019-05-10 09:22 | Observation (INO) | payer MEDICARE, MEDICAID ==
[~2019-05-10] VITALS: Ht 175.3 cm; Wt 80.0 kg
[2019-05-10] MEDS: SERTRALINE HCL 25 MG TABLET PO SCH (09:00)
[2019-05-10] MEDS: NEPHRO-VIT TAB (NEPHROCAPS) PO SCH (09:00)
[2019-05-10 10:10] LABS: BASO # 0.1 10^3/uL (0.0-0.2); BASO % 0.7 % (0.0-1.0); EOS # 0.2 10^3/uL (0.0-0.5); EOS % 2.1 % (0.0-3.0); HEMATOCRIT 43.8 % (42.0-52.0); HEMOGLOBIN 13.5 g/dl (13.5-17.5); LYMPH # 0.5 10^3/uL (1.5-5.0); LYMPH % 5.3 % (24.0-44.0); MEAN CORPUSCULAR HEMOGLOBIN 30.9 pg (27.0-33.0); MEAN CORPUSCULAR HGB CONC 30.8 g/dl (32.0-36.5); MEAN CORPUSCULAR VOLUME 100.2 fl (80.0-96.0); MONO # 1.1 10^3/uL (0.0-0.8); MONO % 11.3 % (0.0-5.0); NEUTROPHILS # 7.9 10^3/uL (1.5-8.5); NEUTROPHILS % 79.8 % (36.0-66.0); PLATELET COUNT, AUTOMATED 159 10^3/uL (150-450); RED BLOOD COUNT 4.37 10^6/uL (4.30-6.10); WHITE BLOOD COUNT 9.9 10^3/uL (4.0-10.0)
--- NOTE | 2019-05-10 10:12 | REP ---
Chest x-ray: Two views. History: Altered mental status. Comparison chest x-ray: December 27 1018. Findings: Cardiomegaly with pacemaker and median sternotomy wires again seen. There are bilateral pleural effusions right larger than left consistent with CHF. Pulmonary vasculature appears cephalized. Interstitial markings are diffusely prominent. Impression: CHF pattern with bilateral pleural effusions right greater than left and diffuse interstitial edema pattern. Electronically Signed by Akash Li MD 05/10/2019 10:02 A
[2019-05-10] MEDS ORDERED: NS 500 ML IV ONE (10:15)
[2019-05-10] MEDS ORDERED: SCOP1PAT2 TOP (10:20)
[2019-05-10] MEDS ORDERED: PROM1SUP2 PR (10:20)
[2019-05-10] MEDS ORDERED: POLYOPD OU (10:20)
[2019-05-10] MEDS ORDERED: BIOTLIQ3 MT (10:20)
[2019-05-10] MEDS ORDERED: ATIV1TAB10 PO (10:20)
[2019-05-10] MEDS ORDERED: VITA50005 PO (10:20)
[2019-05-10] MEDS ORDERED: MORP1SOL4 SL (10:28)
--- NOTE | 2019-05-10 10:42 | REP ---
CT BRAIN WITHOUT IV CONTRAST: CT brain is performed with IV contrast. Coronal reconstruction images are performed. Comparison 06/27/2018. There is again mild to moderate atrophy. There is no midline shift or mass effect. Chronic periventricular small vessel ischemic changes are noted. There is no acute intracranial hemorrhage or extra-axial fluid collection. Metallic clips are seen in the region of the [place] from prior aneurysm repair. Mild vascular calcifications are seen in the carotid siphons. The visualized paranasal sinuses are clear. IMPRESSION: Chronic changes as above. Metallic clips in the region of the [place] from prior aneurysm repair. No acute abnormality is detected as discussed in detail above. Electronically Signed by Chip Stringer MD 05/10/2019 12:53 P
[2019-05-10] MEDS ORDERED: PROM25SU PR (10:43)
[2019-05-10 10:46] LABS: ALBUMIN 2.5 GM/DL (3.2-5.2); BILIRUBIN,DIRECT 0.5 MG/DL (0.0-0.2); BILIRUBIN,TOTAL 0.8 MG/DL (0.2-1.0); CALCIUM LEVEL 8.8 MG/DL (8.8-10.2); CK-MB VALUE MASS 7.1 NG/ML (<3.6); CREATININE FOR GFR 5.03 MG/DL (0.70-1.30); GLOMERULAR FILTRATION RATE 12.4 (>49); MB/CK RELATIVE INDEX 13.92 (< OR =4); THYROID STIMULATING HORMONE 5.69 uIU/ML (0.358-3.740); TOTAL PROTEIN 6.6 GM/DL (6.4-8.2); TROPONIN I 0.06 NG/ML (< 0.10)
[2019-05-10] MEDS ORDERED: MORP20SO3 SL (10:47)
[2019-05-10] MEDS ORDERED: GLUCAGON FOR INJ 1 MG VIAL (J1610) SC PRN (11:15)
[2019-05-10] MEDS ORDERED: GLUCOSE 4 GM CHEW TABLET PO PRN (11:15)
[2019-05-10] MEDS ORDERED: ACETAMINOPHEN TAB 650MG DOSE (2X325MG) PO PRN (11:15)
[2019-05-10] MEDS ORDERED: SALIVA SUBSTITUTE(MOUTHKOTE) BTL MT PRN (11:30)
[2019-05-10] MEDS ORDERED: PROMETHAZINE 25 MG SUPP PR PRN (11:30)
[2019-05-10] MEDS ORDERED: BISACODYL 10 MG SUPP PR PRN (11:30)
[2019-05-10] MEDS ORDERED: POLYVINYL ALCOHOL OPHTH SOLN 15 ML(LIQUITEARS) OU PRN (11:30)
[2019-05-10] MEDS ORDERED: FLEET ENEMA PR PRN (11:30)
[2019-05-10] MEDS ORDERED: LORazepam 0.5 MG TAB PO PRN (11:30)
--- NOTE | 2019-05-10 11:40 | HPEPDOC ---
General Date of Admission May 10, 2019 at 11:14 Date of Service: May 10, 2019 Chief Complaint The patient is a 63-year-old male Who presented to the ER after experiencing syncopal episodes during dialysis. History of Present Illness Patient is 63-year-old male with a PMHx of ESRD on HD (MWF), Systolic CHF (EF: 20%), CVA w/ L sided weakness, Hx of A. fib / flutter, CAD s/p CABG, DLP, NIDDM2, AOCD, Cirrhosis (w/ monthly paracentesis), who presented to the emergency room after experiencing a syncopal episode while at dialysis. Patient is a poor historian and cannot add much details to his story. Currently, he appears to be oriented to person, place and not to time. He is arousable to verbal and physical stimuli. She denies any headache, nausea, vomiting, chest pain, shortness of breath, palpitations, cough, abdominal pain, diarrhea or constipation. Notes that his last bowel movement was this morning. Patient does report making urine and denies any discomfort with urination. He is unaware of any fevers or chills. The last couple of days. Home Medications Scheduled Atorvastatin Calcium (Atorvastatin Calcium) 10 Mg Tablet, 10 MG PO QHS, (Reported) Ergocalciferol (Vitamin D2) (Vitamin D2) 50,000 Units Cap, 50,000 UNITS PO QWEEK, (Reported) MONDAY Metoprolol Succinate (Metoprolol Succinate) 25 Mg Tab.er.24h, 12.5 MG PO QHS, (Reported) Midodrine HCl (Midodrine HCl) 5 Mg Tablet, 5 MG PO TID, (Reported) am dose must be given prior to dialysis Sertraline HCl (Sertraline HCl) 25 Mg Tablet, 25 MG PO DAILY, (Reported) AT NOON Sucroferric Oxyhydroxide (Velphoro) 500 Mg Tab.chew, 500 MG PO BID, (Reported) AT LUNCH AND DINNER Vit B Comp No.3/Folic/C/Biotin (Nephro-Sarah Rx Tablet) 1 Each Tablet, 1 TAB PO DAILY, (Reported) AT NOON Scheduled PRN Acetaminophen (Acetaminophen) 650 Mg Supp.rect, 650 MG MO Q4H PRN for PAIN / FEVER, (Reported) Acetaminophen (Acetaminophen) 325 Mg Tablet, 650 MG PO Q4H PRN for PAIN / FEVER, (Reported) Albuterol Sulf (Albuterol Sulfate) 2.5 Mg/3 Ml Vial.neb, 2.5 MG INH Q6H PRN for SHORTNESS OF BREATH, (Reported) Bisacodyl (Dulcolax) 10 Mg Supp.rect, 10 MG MO DAILY PRN for CONSTIPATION, (Reported) Loperamide HCl (Loperamide) 2 Mg Capsule, 2 MG PO Q6H PRN for DIARRHEA, (Reported) Lorazepam (Ativan) 0.5 Mg Tablet, 0.5 MG PO Q6H PRN for ANXIETY, (Reported) Morphine Sulfate (Morphine Sulfate) 100 Mg/5 Ml Solution, 5 MG SL Q4H PRN for PAIN OR DYSPNEA, (Reported) Polyvinyl Alcohol (Artificial Tears) 15 Ml Drops, 1 DROP OU QID PRN for DRY EYES, (Reported) Promethazine HCl (Phenadoz) 25 Mg Supp.rect, 25 MG MO Q6H PRN for NAUSEA OR VOMITING, (Reported) Saliva Substitute Combo No.9 (Biotene) 473 Ml Mouthwash, 1 DOSE MT ASDIRECTED PRN for DRY MOUTH, (Reported) Scopolamine (Transderm-Scop) 1 Each Patch.td.3, 1 PATCH TOP Q72H PRN for EXCESSIVE SECRETIONS, (Reported) Sodium Phosphate,Laporte-Dibasic (Enema) 133 Ml Enema, 1 MOO MO DAILY PRN for CONSTIPATION, (Reported) Allergies Coded Allergies: Egg Derived (Verified Adverse Reaction, Mild, Diarrhea, upset stomach , 05/10/19) egg (Verified Adverse Reaction, Mild, diarrhea, upset stomach, 05/10/19) Past Medical History Medical History ESRD on HD (MWF), Systolic CHF (EF: 20%), CVA w/ L sided weakness, Hx of A. fib / flutter, CAD s/p CABG, DLP, NIDDM2, AOCD, Cirrhosis (w/ monthly paracentesis) Surgical History AV fistula formation of right arm Brain aneurysm with clipping AICD 2009 CABG Family History - Reviewed and is currently noncontributory to current hospitalization Social History - Denies the use of alcohol or illicit drugs; Prior smoker - quit smoking several years ago - Denies recent travel or sick contacts - Lives at [facility]; wheelchair dependent Review of Systems Other systems 10 point review of systems complete, all negative otherwise stated in HPI Vital Signs - Vitals: BP 94/58, HR 81, RR 18, Sat 100%NC2L, Temp 97.5F - General: Lying in bed, No acute distress, Speaking in full sentences, AAOx2 ( not to time) - HEENT: NC, AT, PERRLA - CVS: +S1S2 - Lungs: Fair air entry bilaterally, No appreciable wheezing / rales / rhonchi - Abdomen: Soft, mild distended, Non-tender - Extremities: No lower extremity edema, No calf tenderness - Skin: No visible rashes Laboratory Data Labs 24H Laboratory Tests 2 05/10/19 09:57: Immature Granulocyte % (Auto) 0.8, Neutrophils (%) (Auto) 79.8H, Lymphocytes (%) (Auto) 5.3L, Monocytes (%) (Auto) 11.3H, Eosinophils (%) (Auto) 2.1, Basophils (%) (Auto) 0.7, Neutrophils # (Auto) 7.9, Lymphocytes # (Auto) 0.5L, Monocytes # (Auto) 1.1H, Eosinophils # (Auto) 0.2, Basophils # (Auto) 0.1, Nucleated Red Blood Cells % (auto) 0.0, Anion Gap 9, Glomerular Filtration Rate 12.4L, Lactic Acid Level 1.0, Calcium Level 8.8, Total Bilirubin 0.8, Direct Bilirubin 0.5H, Aspartate Amino Transf (AST/SGOT) 10, Alanine Aminotransferase (ALT/SGPT) 20, Alkaline Phosphatase 121H, Ammonia 26, Total Creatine Kinase 51, Creatine Kinase MB 7.1H, Creatine Kinase MB Relative Index 13.92H, Troponin I 0.06, Total Protein 6.6, Albumin 2.5L, Albumin/Globulin Ratio 0.61L, Thyroid Stimulating Hormone (TSH) 5.690H 05/10/19 10:23: Urine Color STAN, Urine Appearance HAZY, Urine pH 5.0, Urine Specific [place] 1.016, Urine Protein 1+H, Urine Glucose (UA) NEGATIVE, Urine Ketones NEGATIVE, Urine Blood 2+H, Urine Nitrite NEGATIVE, Urine Bilirubin NEGATIVE, Urine Urobilinogen 0.2, Urine Leukocyte Esterase 2+H, Urine WBC (Auto) 16H, Urine RBC (Auto) 10H, Urine Hyaline Casts (Auto) 0, Urine Bacteria (Auto) 1+H, Urine Squamous Epithelial Cells 0, Urine Amorphous Sediment SMALLH, Urine Sperm (Auto) CBC/BMP Laboratory Tests 05/10/19 09:57 Microbiology Microbiology 05/10/19 Blood Culture, Received Pending 05/10/19 Urine Culture, Received Pending 05/10/19 Blood Culture, Received Pending Plan / VTE VTE Prophylaxis Ordered?: Yes Plan Plan Syncope - possibly 2/2 hypotension during HD - Currently patient has presented to the emergency room after spending several episodes of passing out while at dialysis - Clinically patient is oriented to person and place only - Currently, he is afebrile. Blood pressure appears to be similar to his prior readings over the last 1 year - No leukocytosis, no lactic acidosis - Ammonia levels within normal range - UA without significant evidence of infection - Troponin first set negative; will continue to trend - EKG reviewed without any significant changes compared to prior EKG - CT head 05/09: Chronic changes as above. Metallic clips in the region of the [place] from prior aneurysm repair. No acute abnormality is detected as discussed in detail above. - CXR 05/09: CHF pattern with bilateral pleural effusions right greater than left and diffuse interstitial edema pattern. - Emergency room, patient has received 500 mL of normal saline - Will place on telemetry monitoring - Will check blood cultures / urine cultures - Will resume Midodrine from outpatient setting - Case discussed with Nephrology, Dr. Stark; will be on consultation ESRD on HD (MWF) - CXR with evidence of congestion - Will discontinue fluids - Consulted Nephrology Systolic CHF (EF: 20%) - s/p AICD placement - Has received dialysis today - Nephrology on consultation Hx of A. fib / flutter - Rate currently remains controlled - c/w Metoprolol - no anticoagulation (re: Brain aneurysm bleeding in the past) CAD s/p CABG - EKG reviewed without any changes compared to prior - c/w Atorvastatin DLP - c/w Atorvastatin NIDDM2 - Will start ISS AOCD - Hg appears to be slightly elevated from baseline - Will continue to monitor CVA w/ L sided weakness - c/w Atorvastatin Cirrhosis - No evidence of decompensation - Mild distention - Ammonia levels wnl - c/w monthly paracentesis; last completed 04/25/2019 DVT prophylaxis - Will start TEDs/Sequentials Code Status: - Review indicates that patient's code status was updated to DNR / DNI / JUDGE'S CLERK on 04/22/2019 after discussion with patient while at [facility] - Current medications and management do not appear to reflect JUDGE'S CLERK status - Will continue with outpatient regimen at this time - Discussed with Nephrology; unaware of any change in status that has occurred - Based on record it appears he continued with HD / paracentesis for comfort - At this time will continue with DNR / DNI and discuss with outpatient providers SHREYAS MAE MD May 10, 2019 11:40
[2019-05-10] MEDS: SUCROFERRIC OXYHYDROXIDE 500MG CHEW TAB (VELPHORO) PO SCH ×2 (11:59→17:22)
[2019-05-10] MEDS: HumaLOG INSULIN (NovoLOG) PER UNIT SC SCH ×2 (12:00→17:21)
[2019-05-10] MEDS: DEXTROSE 50% 50 ML SYRINGE IV PRN (12:24)
[2019-05-10 12:38] VITALS: BP 116/74
[2019-05-10] MEDS ORDERED: HEPARIN SOD (PORCINE) 5000 UNITS/ML VIAL (J1644 PER 1000UNITS) SC SCH (14:00)
[2019-05-10 14:40] LABS: CK-MB VALUE MASS 7.2 NG/ML (<3.6); MB/CK RELATIVE INDEX 13.85 (< OR =4); TROPONIN I 0.05 NG/ML (< 0.10)
[2019-05-10 16:00] VITALS: BP 94/64
[2019-05-10] MEDS: MIDODRINE 5 MG TAB PO SCH ×2 (18:00→18:30)
[2019-05-10] MEDS ORDERED: HALOPERIDOL 5 MG/ML VIAL (J1630) As Ordered ONE (18:59)
[2019-05-10] MEDS: HALOPERIDOL 5 MG/ML VIAL (J1630) IV PRN (19:03)
[2019-05-10 21:00] VITALS: BP 86/64
[2019-05-10] MEDS ORDERED: METOPROLOL SUCC *XL* 12.5MG PER 1/2 TAB (TopROL *XL*) PO SCH (21:00)
[2019-05-10] MEDS ORDERED: ATORVASTATIN 10 MG TAB PO SCH (21:00)
[2019-05-10] MEDS ORDERED: HumaLOG INSULIN (NovoLOG) PER UNIT SC SCH (21:00)
[2019-05-10 23:59] VITALS: BP 86/68
[2019-05-11 04:00] VITALS: BP 104/69
[2019-05-11] MEDS: MIDODRINE 5 MG TAB PO SCH ×2 (06:37→11:41)
[2019-05-11] MEDS: DEXTROSE 50% 50 ML SYRINGE IV PRN (06:45)
[2019-05-11] MEDS: HumaLOG INSULIN (NovoLOG) PER UNIT SC SCH ×3 (07:30→17:20)
[2019-05-11 07:51] LABS: BASO % 0.3 % (0.0-1.0); EOS % 0.3 % (0.0-3.0); HEMATOCRIT 40.5 % (42.0-52.0); HEMOGLOBIN 12.3 g/dl (13.5-17.5); LYMPH # 0.5 10^3/uL (1.5-5.0); LYMPH % 5.3 % (24.0-44.0); MEAN CORPUSCULAR HEMOGLOBIN 30.6 pg (27.0-33.0); MEAN CORPUSCULAR HGB CONC 30.4 g/dl (32.0-36.5); MEAN CORPUSCULAR VOLUME 100.7 fl (80.0-96.0); MONO % 11.1 % (0.0-5.0); NEUTROPHILS # 7.5 10^3/uL (1.5-8.5); PLATELET COUNT, AUTOMATED 145 10^3/uL (150-450); RED BLOOD COUNT 4.02 10^6/uL (4.30-6.10); WHITE BLOOD COUNT 9.1 10^3/uL (4.0-10.0)
[2019-05-11 08:00] VITALS: BP 104/56
[2019-05-11 08:08] LABS: CALCIUM LEVEL 8.4 MG/DL (8.8-10.2); CREATININE FOR GFR 5.69 MG/DL (0.70-1.30); GLOMERULAR FILTRATION RATE 10.7 (>49); MAGNESIUM LEVEL 2.5 MG/DL (1.8-2.4); POTASSIUM SERUM 4.5 MEQ/L (3.5-5.1)
[2019-05-11] MEDS: SERTRALINE HCL 25 MG TABLET PO SCH (08:30)
[2019-05-11] MEDS: NEPHRO-VIT TAB (NEPHROCAPS) PO SCH (08:30)
[2019-05-11] MEDS ORDERED: SCOPOLAMINE 1MG TRANSDERMAL PATCH TOP PRN (08:45)
--- NOTE | 2019-05-11 09:15 | IPNPDOC ---
Text Note Date of Service The patient was seen on 05/11/19. NOTE Subjective: Patient is 63-year-old male with a PMHx of ESRD on HD (MWF), Systolic CHF (EF: 20%), CVA w/ L sided weakness, Hx of A. fib / flutter, CAD s/p CABG, DLP, NIDDM2, AOCD, Cirrhosis (w/ monthly paracentesis), who presented to the emergency room after experiencing a syncopal episode while at dialysis. Patient is a poor historian and cannot add much details to his story. Currently, he appears to be oriented to person, place and not to time. He is arousable to verbal and physical stimuli. Patient was admitted on 05/09 after he presented from dialysis. Patient subsequently had his MOLST form sent form [facility] that reflected STRATEGIC PARTNERSHIP REPRESENTATIVE / DNR / DNI. This MOLST form has been verified with Dr. Perez. Patient had indicated that he would like to be comfort measures only on 04/22/2019. Patient was seen and examined at the bedside. Currently, patient reports that he's experiencing pain all over his body. He denies any shortness of breath, palpitations or cough. Denies any nausea, vomiting, abdominal pain, diarrhea. Objective: Vitals (See below) General: Lying in bed, AAOx1 (refused to answer name, noted place, not oriented to time) HEENT: NC, AT CVS: +S1S2 Lungs: Fair air entry b/l, -w/r/r Abdomen: Soft, distended, non-tender Extremities: 1+ edema, - Calf tenderness Assessment: Syncope - possibly 2/2 hypotension during HD ESRD on HD (MWF) Systolic CHF (EF: 20%) Hx of A. fib / flutter CAD s/p CABG DLP NIDDM2 AOCD CVA w/ L sided weakness Cirrhosis DVT prophylaxis Plan: - MOLST form was verified with Dr. Perez - currently patient is DNR / DNI / STRATEGIC PARTNERSHIP REPRESENTATIVE as per discussion with patient on 04/22/2019 - Will update record to reflect STRATEGIC PARTNERSHIP REPRESENTATIVE - Discussed Dialysis with Dr. Perez; at this point; given comfort measures will discontinue dialysis - Discussed with Nephrology who will evaluate the patient today - Reached out to family contact, Bessie Altman - [phone]; no answer on cell phone x 3 calls Code Status: - Review indicates that patient's code status was updated to DNR / DNI / STRATEGIC PARTNERSHIP REPRESENTATIVE on 04/22/2019 after discussion with patient while at [facility] - Will restart STRATEGIC PARTNERSHIP REPRESENTATIVE medications - Discussed with nephrology; will likely discontinue dialysis treatments VS,Fishbone, I+O VS, Fishbone, I+O Laboratory Tests 05/10/19 09:57 05/11/19 07:25 Vital Signs Date Time Temp Pulse Resp B/P (MAP) Pulse Ox O2 Delivery O2 Flow Rate FiO2 05/11/19 08:00 97.6 88 24 104/56 (72) 98 Nasal Cannula 1.0 05/11/19 04:00 24 I&O- Last 24 Hours up to 6 AM 05/11/19 06:00 Intake Total 500 ml Output Total 50 ml Balance 450 ml SHREYAS MAE MD May 11, 2019 09:15
[2019-05-11] MEDS: SUCROFERRIC OXYHYDROXIDE 500MG CHEW TAB (VELPHORO) PO SCH ×2 (11:41→16:31)
--- NOTE | 2019-05-11 18:35 | CR ---
DATE OF CONSULTATION: 05/11/2019 REQUESTING PHYSICIAN: Dr. Mona Forman CONSULTING PHYSICIAN: Dr. Neal REASON FOR CONSULTATION: Management of end-stage renal disease. CHIEF COMPLAINT: The patient was sent to the emergency room from dialysis center because of syncope during dialysis. HISTORY OF PRESENT ILLNESS: Mr. Luis Miguel Weber is a 63-year-old male with past medical history of end-stage renal disease on hemodialysis every Monday, Monday, Monday, history of chronic systolic congestive heart failure with pulmonary hypertension, history of cirrhosis requiring monthly ascitic taps, chronically bedridden. He was apparently made comfort measures only at the longterm at the beginning of this month. However, his medications were continued and he was still being sent to dialysis center for dialysis for symptomatic management. However, when the patient was being dialyzed yesterday, he had a syncope during dialysis. His dialysis was stopped and the patient was sent to the emergency room for further management. The patient was admitted under the hospitalist service. Nephrology service was called for further help in the management of this patient because of end-stage renal disease and further recommendations regarding continuation of his dialysis. I saw and evaluated the patient today morning at the bedside. The patient had a one-to-one sitter at the bedside. He was wearing mittens and he was constantly moaning and he was requesting that his mittens needed to be removed and he was not cooperating with any physical exam or history. Most of the history was obtained from the patient's chart and patient is well-known to nephrology service from his previous hospitalization and outpatient dialysis center. PAST MEDICAL HISTORY: 1. End-stage renal disease on hemodialysis every Monday, Monday, Monday. 2. Chronic systolic congestive heart failure, recent ejection fraction is 20%. 3. Pulmonary hypertension. 4. Cerebrovascular accident (CVA) with left-sided weakness. 5. Atrial fibrillation and atrial flutter. 6. Diabetes mellitus type 2. 7. Hyperlipidemia. 8. Cirrhosis, decompensated with ascites requiring monthly ascitic taps. 9. Chronically bedridden requiring Rene lift for transfer out of his chair into the dialysis chair PAST SURGICAL HISTORY: 1. Status post right forearm arteriovenous (AV) fistula placement. 2. History of brain aneurysm clipping. 3. Status post automatic implantable cardioverter defibrillator (AICD) placement 2009. 4. Status post coronary artery bypass grafting. ALLERGIES: The patient is allergic to EGGS. FAMILY HISTORY: No family history is of visible at this time. SOCIAL HISTORY: The patient is living at [facility], chronically bedridden, wheelchair dependent and Rene lift dependent. REVIEW OF SYSTEMS: The patient was unable to give me any reliable review of systems and he only wanted his mittens to be removed from his hands. PHYSICAL EXAMINATION: GENERAL: The patient is awake, but agitated and complaining of mittens on his hands. He is not cooperating with exam. VITAL SIGNS: Temperature is 97.6 degrees Fahrenheit, blood pressure 104/56, pulse is 88, respiratory rate of 24, saturating 98% on nasal cannula at 1 liter. INTAKE AND OUTPUT: There is no urine output recorded. Weight in the bed scale is 80 kg. HEAD AND NECK EXAM: Extraocular muscles intact. Pupils equally round and reactive to light. Mucous membranes are moist. Neck is supple. He has a mildly elevated jugular venous distention (JVD). CARDIOVASCULAR: S1, S2. 2+ edema of the bilateral lower extremities. RESPIRATORY: Mildly decreased breath sounds at the bases, otherwise no active rales or rhonchi. ABDOMEN: Soft. Moderate amount of ascites in the flanks was noted. No organomegaly was noted. MUSCULOSKELETAL: 2+ edema of the bilateral lower extremities. Otherwise, no clubbing or cyanosis. 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 He does not follow commands, but he is moving his upper extremities. LYMPH NODES: No significant cervical, axillary or inguinal lymphadenopathy. LABORATORY REVIEW: Complete blood count (CBC) showed a WBC of 9.1, hemoglobin 12.3, platelets of 145. Urinalysis showed 1+ protein, 2+ blood, 2+ leukocyte esterase and 16 WBCs. Basic metabolic panel (BMP) showed sodium 141, potassium 4.5, chloride 105, bicarbonate 26, BUN 54, creatinine is 5.6, magnesium 2.5, calcium 8.4. MICROBIOLOGY: Blood cultures are negative so far. IMAGING: A chest x-ray was done yesterday which showed congestive heart failure (CHF) pattern with bilateral pleural effusions, right greater than left, and diffuse interstitial edema. A CT head was done, which showed chronic changes, metallic clips in the region of the [place] CURRENT INPATIENT MEDICATIONS: The patient is getting Artificial Tears. He is getting Lipitor 10 mg at bedtime, bisacodyl as needed, Glucagon as needed, Haldol as needed for agitation, insulin sliding scale, Ativan as needed, metoprolol 12.5 mg by mouth at bedtime, midodrine 5 mg by mouth three times a day, morphine as needed, scopolamine as needed, Zoloft 25 mg by mouth daily, Velphoro 500 mg by mouth twice a day, and vitamin B complex ASSESSMENT: A 63-year-old male with chronic severe systolic congestive heart failure, cirrhosis, recurrent ascites, end-stage renal disease, hemodialysis, chronically bedridden, admitted this time with syncope and hypotension during dialysis and failure to thrive. PLAN 1. End-stage renal disease. The patient is dialysis dependent. However, the patient has a clear comfort measures only medical orders for life-sustaining treatment (MOLST) form signed by himself beginning of this month. I would respect his wishes at this point given his unstable clinical status and inability to undergo hemodialysis. I would stop further hemodialysis and keep this patient comfortable only. 2. Acute on chronic decompensated systolic congestive heart failure. The patient has significant pulmonary edema and pleural effusions on chest x-ray. Given his chronic low blood pressure, he is not able to have much hemodialysis and ultrafiltration, and as mentioned above, given his [employer] status. I would not do any further hemodialysis or ultrafiltration on this patient. 3. Atrial fibrillation. The patient is taking Toprol XL 12.5 mg at bedtime. Given that we are making him comfort measures only, I am going to stop all the medications at this time. 4. Chronic kidney disease/mineral bone disease. The patient does not need to be on any phosphorus binders. I am stopping the phosphorus binders at this point. 5. Chronic hypotension. No need to further give the patient midodrine. 6. Diabetes mellitus type 2. I am holding all the insulin regimen at this time. DISPOSITION: I have discussed the plan of care with the hospitalist. The patient is comfort measures only. All the therapeutic medications are being stopped. The patient can take any comfort foods that he wants. He should not be on any fluid restriction and no further hemodialysis. Thank you for involving me in the care of this patient. I shall be happy to follow the patient along with you tomorrow morning if needed.
[2019-05-11] MEDS: HALOPERIDOL 5 MG/ML VIAL (J1630) IV PRN (22:16)
[2019-05-11] MEDS: MORPHINE 10MG/0.5ML ORAL CONCENTRATE SOLUTION U/D SL PRN (22:53)
[2019-05-12] MEDS ORDERED: LORazepam 2 MG/ML VIAL (J2060) IV PRN (00:15)
--- NOTE | 2019-05-12 06:34 | ECGEPIP ---
[facility] - ED Test Date: 2019-05-10 Pat Name: YADIEL WAHL Department: Room: - Gender: Male Command And Control: jjoe : 1955 Requested By: AUSTIN Chi Order Number: [id number] Reading MD: Selvin Grady Measurements Intervals [place] Rate: 78 P: AR: 0 QRS: -47 QRSD: 126 T: 157 QT: 441 QTc: 505 Interpretive Statements ATRIAL FIBRILLATION WITH ABERRANT CONDUCTION OR VENTRICULAR PREMATURE COMPLEXES ANTERIOR MYOCARDIAL INFARCTION, PROBABLY RECENT INFERIOR MYOCARDIAL INFARCTION, PROBABLY OLD NONSPECIFIC STT WAVE CHANGES PROLONGED QTC LOW QRS VOLTAGE LIMB LEADS CW 12/23/[address] T WAVE CHANGES Electronically Signed on 05-12-2019 6:33:30 EDT by Selvin Grady
--- NOTE | 2019-05-12 09:46 | IPNPDOC ---
Text Note Date of Service The patient was seen on 05/12/19. NOTE Subjective: Patient is 63-year-old male with a PMHx of ESRD on HD (MWF), Systolic CHF (EF: 20%), CVA w/ L sided weakness, Hx of A. fib / flutter, CAD s/p CABG, DLP, NIDDM2, AOCD, Cirrhosis (w/ monthly paracentesis), who presented to the emergency room after experiencing a syncopal episode while at dialysis. Patient is a poor historian and cannot add much details to his story. Currently, he appears to be oriented to person, place and not to time. He is arousable to verbal and physical stimuli. Patient was admitted on 05/09 after he presented from dialysis. Patient subsequently had his MOLST form sent form [facility] that reflected RETAIL AREA MANAGER / DNR / DNI. This MOLST form has been verified with Dr. Perez. Patient had indicated that he would like to be comfort measures only on 04/22/2019. Patient was seen and examined at the bedside. Patient is awake but is not cooperating and answering any questions. Does not appear to be in any distress Objective: Vitals (See below) General: Lying in bed, awake/alert, does not respond to any questioning Assessment: Syncope - possibly 2/2 hypotension during HD ESRD on HD (MWF) Systolic CHF (EF: 20%) Hx of A. fib / flutter CAD s/p CABG DLP NIDDM2 AOCD CVA w/ L sided weakness Cirrhosis DVT prophylaxis Plan: - MOLST form was verified with Dr. Perez - currently patient is DNR / DNI / RETAIL AREA MANAGER as per discussion with patient on 04/22/2019 - Patient has been transitioned to comfort measures only and nonessential medications were discontinued - Appreciate nephrology's input; will discontinue HD moving forward Code Status: - DNR / DNI / RETAIL AREA MANAGER Disposition: - Transition to [facility] with RETAIL AREA MANAGER status on Monday VS,Fishbone, I+O VS, Fishbone, I+O Vital Signs Date Time Temp Pulse Resp B/P (MAP) Pulse Ox O2 Delivery O2 Flow Rate FiO2 05/11/19 13:10 1.0 05/11/19 08:00 97.6 88 24 104/56 (72) 98 Nasal Cannula 05/11/19 04:00 24 I&O- Last 24 Hours up to 6 AM 05/12/19 06:00 Intake Total 0 ml Output Total 0 ml Balance 0 ml SHREYAS MAE MD May 12, 2019 09:46
--- NOTE | 2019-05-12 14:01 | IPN ---
DATE OF SERVICE: 05/12/2019 SUBJECTIVE: The patient was seen and examined at the bedside today morning. Last 24-hour events were noted. The patient was completely made comfort measures only. All the therapeutic medications were stopped except the pain medications and antianxiety medication and palliative care medication. The patient still has a one-to-one sitter. He has a mitten on the right hand. He does not engage in any conversation. The patient was drowsy and sleepy when I saw him in the morning. OBJECTIVE: Vital signs: His vital signs were done yesterday only. There are no vital signs available. PHYSICAL EXAM: General: Patient is obtunded, sleepy and drowsy, laying in bed. Head and neck exam: Eyes are closed, but he opens eyes on loud vocal commands. Mucous membranes are dry. Neck is supple. He has mildly elevated jugular venous distention (JVD). Cardiovascular: S1, S2, regular rate, 1+ edema of the lower extremities. Respiratory: Chest is clear to auscultation bilaterally. Decreased breath sounds at bases. Abdomen: Soft, mildly distended. Moderate amount of ascites is noted. Musculoskeletal: The patient moves his bilateral upper extremities. He is otherwise chronically bedridden and does not walk. 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 LAB REVIEW: There are no new labs available from today. CURRENT INPATIENT MEDICATIONS: Most of the therapeutic medications are on hold. The patient has bisacodyl as needed, Haldol as needed, Ativan as needed, morphine as needed, scopolamine patch, and Fleet's enema as needed. ASSESSMENT: 63-year-old male with history of end-stage renal disease, dialysis dependent, cirrhosis, decompensated ascites requiring frequent ascitic taps, chronic systolic congestive heart failure with left ventricular (LV) ejection fraction of 20%, severe pulmonary hypertension, chronically bedridden, and failure to thrive. PLAN: The patient is comfort measures only, and no more dialysis will be done. He is getting palliative medications. He can be transferred back to care home with order not to send him for dialysis and not to transfer to the hospital. Nephrology service is going to sign off at this moment. Plan of care was discussed with the hospitalist, Dr. Mona Forman. [place]
[2019-05-13] MEDS: MORPHINE 10MG/0.5ML ORAL CONCENTRATE SOLUTION U/D SL PRN (05:07)
--- NOTE | 2019-05-13 10:04 | DS.PDOC ---
Discharge Summary General Date of Admission May 10, 2019 at 11:14 Date of Discharge 05/13/2019 Discharge Summary PROCEDURES PERFORMED DURING STAY: [None]. ADMITTING DIAGNOSES / DISCHARGE DIAGNOSES: Syncope - possibly 2/2 hypotension during HD ESRD on HD (MWF) Systolic CHF (EF: 20%) Hx of A. fib / flutter CAD s/p CABG DLP NIDDM2 AOCD CVA w/ L sided weakness Cirrhosis DVT prophylaxis COMPLICATIONS/CHIEF COMPLAINT: Syncope during dialysis HISTORY OF PRESENT ILLNESS / HOSPITAL COURSE: . Patient is 63-year-old male with a PMHx of ESRD on HD (MWF), Systolic CHF (EF: 20%), CVA w/ L sided weakness, Hx of A. fib / flutter, CAD s/p CABG, DLP, NIDDM2, AOCD, Cirrhosis (w/ monthly paracentesis), who presented to the emergency room after experiencing a syncopal episode while at dialysis. Patient is a poor historian and cannot add much details to his story. Currently, he appears to be oriented to person, place and not to time. He is arousable to verbal and physical stimuli. Patient was admitted on 05/09 after he presented from dialysis. Patient subsequently had his MOLST form sent form [facility] that reflected INSTRUCTIONAL PARAPROFESSIONAL / DNR / DNI. This MOLST form has been verified with Dr. Perez. Patient had indicated that he would like to be comfort measures only on 04/22/2019. Nonessential medications were discontinued. Discussed with nephrology and hemodialysis will be discontinued oving forward/ At this point, will continue with strictly comfort measures. Patient will be transitioned back to [facility] under comfort measures. DISCHARGE MEDICATIONS: Please see below. ALLERGIES: Please see below. PHYSICAL EXAMINATION ON DISCHARGE: Vitals (See below) General: Lying in bed, does not appear in any distress, awake / arousable Full exam not completed LABORATORY DATA: Please see below. ACTIVITY: [As tolerated]. DISCHARGE PLAN: Follow-up with Dr. Perez upon transfer to [facility] Remain compliant with treatment plan and medications DISPOSITION: [facility] under comfort measures status TIME SPENT ON DISCHARGE: 25 minutes Vital Signs/I&Os Vital Signs Date Time Temp Pulse Resp B/P (MAP) Pulse Ox O2 Delivery O2 Flow Rate FiO2 05/11/19 13:10 1.0 05/11/19 08:00 97.6 88 24 104/56 (72) 98 Nasal Cannula 05/11/19 04:00 24 I&O- Last 24 Hours up to 6 AM 05/13/19 06:00 Intake Total 0 ml Balance 0 ml Microbiology Microbiology 05/10/19 Blood Culture - Preliminary, Resulted No Growth after 48 hours. All Specime... 05/10/19 Urine Culture - Final, Complete Citrobacter Sedlakii Klebsiella Pneumoniae Enterococcus Faecalis 05/10/19 Blood Culture - Preliminary, Resulted No Growth after 48 hours. All Specime... Discharge Medications Scheduled PRN Bisacodyl (Dulcolax) 10 Mg Supp.rect, 10 MG WI DAILY PRN for CONSTIPATION, (Reported) Loperamide HCl (Loperamide) 2 Mg Capsule, 2 MG PO Q6H PRN for DIARRHEA, (Reported) Lorazepam (Ativan) 0.5 Mg Tablet, 0.5 MG PO Q6H PRN for ANXIETY, (Reported) Morphine Sulfate (Morphine Sulfate) 100 Mg/5 Ml Solution, 5 MG SL Q4H PRN for PAIN OR DYSPNEA, (Reported) Polyvinyl Alcohol (Artificial Tears) 15 Ml Drops, 1 DROP OU QID PRN for DRY EYES, (Reported) Promethazine HCl (Phenadoz) 25 Mg Supp.rect, 25 MG WI Q6H PRN for NAUSEA OR VOM ITING, (Reported) Scopolamine (Transderm-Scop) 1 Each Patch.td.3, 1 PATCH TOP Q72H PRN for EXCES SIVE SECRETIONS, (Reported) Sodium Phosphate,Weakley-Dibasic (Enema) 133 Ml Enema, 1 MOO WI DAILY PRN for CONSTIPATION, (Reported) Allergies Coded Allergies: Egg Derived (Verified Adverse Reaction, Mild, Diarrhea, upset stomach , 05/10/19) egg (Verified Adverse Reaction, Mild, diarrhea, upset stomach, 05/10/19) SHREYAS MAE MD May 13, 2019 10:04
== END 2019-05-13 11:55 ==
LOC: M ED 09:22 → EDBD 09:22 → M ED INP 11:14 → ENRESERVDT 12:13 → ENRESERVTM 12:13 → M PCU 12:42 → M MSPAV 05-11 13:06
PROVIDERS: ADMIT Internal Medicine; ATTEND Internal Medicine
DX: R55 Syncope and collapse (principal); N18.6 End stage renal disease; I50.21 Acute systolic (congestive) heart failure; I25.10 Atherosclerotic heart disease of native coronary artery without angina pectoris; I48.91 Unspecified atrial fibrillation; E11.9 Type 2 diabetes mellitus without complications; E78.49 Other hyperlipidemia; K74.60 Unspecified cirrhosis of liver; Z95.1 Presence of aortocoronary bypass graft; D63.8 Anemia in other chronic diseases classified elsewhere; I69.998 Other sequelae following unspecified cerebrovascular disease; R53.1 Weakness; Z87.891 Personal history of nicotine dependence; Z95.810 Presence of automatic (implantable) cardiac defibrillator; Z91.012 Allergy to eggs; Z79.899 Other long term (current) drug therapy; Z99.3 Dependence on wheelchair
CPT/HCPCS: 36415; 51701; 70450; 71046; 80048; 80076; 81001; 82140; 82550; 82553; 83605; 83735; 84145; 84443; 84484; 85025; 87040; 87088; 87186; 93005; 93041; 94760; 96361; 96374; 96375; 96376; 99285; G0378; J1630